=== PATIENT | male | born 1955 | race Caucasian/White ===

== ENCOUNTER 2020-07-07 10:30 | Outpatient (NON) | payer BC, SELFPAY ==
[2020-07-08 14:03] LABS: SARS-CoV-2 RNA PCR Negative
== END 2020-07-07 10:31 ==
LOC: ANHCOVIDDT 10:33
PROVIDERS: PCP Family Medicine Adolescent Medicine; Visit Provider Family Medicine Adolescent Medicine
DX: R43.0 Anosmia (principal); M79.10 Myalgia, unspecified site; R09.89 Other specified symptoms and signs involving the circulatory and respiratory systems
CPT/HCPCS: 87635; C9803; U0003

== ENCOUNTER 2024-10-02 11:48 | Inpatient (IN) | payer OTHER, SELFPAY ==
--- NOTE | ~2024-10-02 | MR_ITS ---
EXAMINATION: MR abdomen wo/w con DATE: 10/23/2024 09:14 INDICATION: Kidney mass. TECHNIQUE: Magnetic resonance imaging (MRI) of the abdomen was performed without and with 20 mL Multi Brea intravenous contrast. COMPARISON: None. FINDINGS: There are small pleural effusions. The liver is normal. Material in the gallbladder may be sludge or stones. The gallbladder is normal in size. The spleen, pancreas, and adrenal glands are normal. There is a 4.3 cm hemorrhagic cyst in the right kidney. There is an 11 mm cyst in right kidney. There is a n 11 mm cyst in the left kidney. There are no dilated loops of bowel. There are no pathologically enl arged lymph nodes. There is no free intraperitoneal fluid. The bladder is distended. IMPRESSION: 1. Benign cysts in the kidneys. 2. Small pleural effusions. Reviewed, dictated and finalized at location [] STMENT UNDERWRITER
--- NOTE | ~2024-10-02 | US_ITS ---
EXAMINATION: US biopsy renal DATE: 10/21/2024 13:08 INDICATION: Acute kidney injury on chronic kidney disease. TECHNIQUE: The procedure including the risks, benefits, and alternatives was discussed with the patie nt. Risks discussed included bleeding and infection. The patient understood the risks and agreed to p roceed. A timeout was performed to verify the patient's name, date of , and procedure to be p erformed. The skin overlying the left kidney was prepped and draped in usual sterile fashion. Anest hetic was administered with 1% lidocaine subcutaneously. An 18 gauge core biopsy needle was then use d to obtain 7 core biopsy specimens under continuous sonographic guidance. The entry site was cleaned and dressed. There were no immediate complications. FINDINGS: Ultrasound images demonstrate the needle in the kidney. IMPRESSION: 1. Ultrasound-guided random left kidney core needle biopsy. Reviewed, dictated and finalized at location A. ECTIONS REP
--- NOTE | ~2024-10-02 | XR_ITS ---
EXAMINATION: XR chest 1V portable DATE: 10/12/2024 10:04 INDICATION: Shortness of breath. TECHNIQUE: A single frontal view of the chest was obtained on 2 radiographs. COMPARISON: Chest single view 10/09/24 FINDINGS: There is no pneumonia, pleural effusion, or pneumothorax. The heart size is normal. Median sternotomy wires and mediastinal surgical clips are seen, likely from prior coronary artery bypass gr afting. IMPRESSION: 1. No acute cardiopulmonary disease. Reviewed, dictated and finalized at location A. [employer]
--- NOTE | ~2024-10-02 | XR_ITS ---
CHEST RADIOGRAPH CLINICAL HISTORY: POST DIALYSIS CATH PLACEMENT . COMPARISON: 10/13/2024 TECHNIQUE: Single portable view of the chest. FINDINGS Sternal wires and mediastinal clips are identified, the wires are midline and intact. A left internal jugular central venous tunneled hemodialysis catheter is identified with its tip proj ecting over the cavoatrial junction. Access site for this catheter projects to the left of the C3 vertebral body. The remainder of the cardiomediastinal silhouette is otherwise unremarkable. The lungs are clear IMPRESSION: Left internal jugular central venous tunneled hemodialysis catheter in position and ready for immedia te use Reviewed, dictated and finalized at location A. TANCE ABUSE SPECIALIST IMPRESSION: Left internal jugular central venous tunneled hemodialysis catheter in position and ready for immediate use
--- NOTE | ~2024-10-02 | XR_ITS ---
Portable chest x-ray Comparison: 01/09/2011 Clinical History: Shortness of breath Findings: Lungs are clear, without focal consolidation or pleural effusion. Cardiomediastinal silho uette is stable, status post interval median sternotomy and CABG. Bones and soft tissues are unremark able. Impression: Clear lungs. Status post CABG. Reviewed, dictated and finalized at location . RIAL PROCESSOR Impression: Clear lungs. Status post CABG.
--- NOTE | ~2024-10-02 | NM_ITS ---
EXAMINATION: NM renal flow and function DATE: 10/13/2024 14:37 INDICATION: Acute kidney injury on chronic kidney disease. TECHNIQUE: 8.3 mCi Tc-99m MAG3 was administered IV. The patient was scanned in the supine position. A posterior abdominal radionuclide angiogram was obtained. A subsequent time course of static images of the kidneys, ureters, and bladder was obtained. COMPARISON: Ultrasound kidneys 10/07/2024 FINDINGS: The posterior abdominal radionuclide angiogram and sequential static images show normal siz e, position, and morphology of the kidneys. Peak renal parenchymal uptake was >>20 min in right kidne y and >>20 min in left kidney (normal peak 3-5 minutes). The relative early renal uptake was 47% on the right and 53% on the left (<40% is abnormal). No abnormalities of the ureters or bladder are see n. T1/2 for clearance of activity from the right kidney and proximal collecting system could not be santos ured. T1/2 for clearance of activity from the left kidney and proximal collecting system could not be measu red. IMPRESSION: 1. Symmetric kidney function. 2. Delayed uptake and clearance of activity from the kidneys, consistent with decreased kidney funct ion. Reviewed, dictated and finalized at location A. SINGER IMPRESSION: 1. Symmetric kidney function. 2. Delayed uptake and clearance of activity from the kidneys, consistent with decreased kidney function.
--- NOTE | ~2024-10-02 | XR_ITS ---
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 RESULT: Lines, tubes, and devices: Intact sternotomy wires. Sternal surgical clips. Lungs and pleura: Clear. Cardiomediastinal silhouette: Stable. Other: No acute osseous or upper abdominal finding. IMPRESSION: No acute cardiopulmonary process. Reviewed, dictated and finalized at location K. RVISOR DRYING AND SOFTENING
--- NOTE | ~2024-10-02 | US_ITS ---
EXAMINATION: US renal BI DATE: 10/07/2024 11:38 INDICATION: Acute on chronic renal insufficiency. TECHNIQUE: Multiple ultrasound grayscale images of the kidneys were obtained. COMPARISON: None. FINDINGS: The right kidney measures 11.9 x 5.8 x 6.4 cm. The left kidney measures 11.1 x 7.2 x 6.2 cm. The kidn eys demonstrate normal echogenicity. There is a mixed solid and cystic lesion at the superior pole of the right kidney which measures 3.4 cm in diameter with anechoic fluid surrounding a central 2 x 1.5 cm echogenic solid component which concerning for renal cell carcinoma. There is no hydronephrosis i n either kidney. No stones identified. There is a trabeculated surface to the bladder mucosa. Bilate ral ureteral jets visualized on color Doppler. IMPRESSION: 1. 3.4 cm mixed solid and cystic lesion at the upper pole the right kidney with 2 cm solid nodular c omponent which is concerning for renal cell carcinoma. Recommend urologic consultation and further ev aluation with pre and postcontrast MRI or CT. 2. No hydronephrosis in either kidney. 3. Trabeculated bladder wall which can be seen with neurogenic bladder or chronic outlet obstruction such as in the setting of prostatomegaly. Reviewed, dictated and finalized at location A. COLOGIST IMPRESSION: 1. 3.4 cm mixed solid and cystic lesion at the upper pole the right kidney wit h 2 cm solid nodular component which is concerning for renal cell carcinoma. Re commend urologic consultation and further evaluation with pre and postcontrast MRI or CT. 2. No hydronephrosis in either kidney. 3. Trabeculated bladder wall which can be seen with neurogenic bladder or chron ic outlet obstruction such as in the setting of prostatomegaly.
--- NOTE | ~2024-10-02 | XR_ITS ---
INTRAOPERATIVE FLUOROSCOPY: CLINICAL HISTORY: 69 years old Male; DIALYSIS CATH PLACEMENT PROCEDURE COMMENTS: Limited intraoperative fluoroscopy of the mediastinum was performed. CUMULATIVE DOSE: 30.8 mGy FLUOROSCOPY TIME: 122.4 seconds FINDINGS/IMPRESSION: Please refer to operative note for further details. Reviewed, dictated and finalized at location A. HING CUTTER
--- NOTE | ~2024-10-02 | XR_ITS ---
EXAMINATION: XR foot RT 2V DATE: 10/02/2024 14:24 INDICATION: Right great toe pain. TECHNIQUE: 2 views of right foot were obtained. COMPARISON: None. FINDINGS: There is a nondisplaced fracture of lateral aspect of head of first proximal phalanx. There is a nondisplaced stellate fracture of tuft of first distal phalanx. There is mild osteoarthritis of first metatarsophalangeal joint and many of the interphalangeal joints and midfoot joints. There are enthesophytes at the posterior and plantar aspects of calcaneal tuberosity. IMPRESSION: 1. Nondisplaced fracture of lateral aspect of head of first proximal phalanx. 2. Nondisplaced stellate fracture of tuft of first distal phalanx. 3. Mild polyarticular osteoarthritis. Reviewed, dictated and finalized at location A. PAY REPRESENTATIVE
[2024-10-02 11:49] VITALS: BP 116/59; PULSE 70; RESP 16; TEMP 36.4; O2SAT 100
--- OUTSIDE RECORDS SUMMARY | 2024-10-02 11:50 | XMS_ITS | Encounter Summary ---
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 Historical Provider Final Res ult * CARDIOLOGY REPORT (12/07/2017 12:00 AM CDT) Anatomical Region Laterality Modality Other Narrative 12/07/2017 12:00 AM CDT Ordered by an unspecified provider. Historical Provider MD [facility] CARDIAC SERVICES PROCE DURES Final Result * CARDIOLOGY REPORT (12/07/2017 12:00 AM CDT) Anatomical Region Laterality Modality Other Narrative 12/07/2017 12:00 AM CDT Ordered by an unspecified provider. [facility] Provider MD CV CARDIAC SERVICES PROCE DURES Final Result * CARDIOLOGY REPORT (12/07/2017 12:00 AM CDT) Anatomical Region Laterality Modality Other Narrative 12/07/2017 12:00 AM CDT Ordered by an unspecified provider. [facility] Provider CV CARDIAC SERVICES PROCE DURES Final Result * CARDIOLOGY REPORT (12/07/2017 12:00 AM CDT) Anatomical Region Laterality Modality Other Narrative 12/07/2017 12:00 AM CDT Ordered by an unspecified provider. [facility] Provider CV CARDIAC SERVICES PROCE DURES Final Result documented in this encounter Visit Diagnoses Not on filedocumented in this encounter Additional Health Concerns Infection Onset Date Last Indicated Resolved Time COVID: Suspected 09/29/2022 09/29/2022 09/29/2022 8:55 PM ELEVATOR ERECTOR HELPER documented as of this encounter Care Teams Traveling Sales Executive Relationship Specialty Start Date End Date Adrian Owens MD [address] [place] [address] PCP - General 12/15/20 documented as of this encounter
--- OUTSIDE RECORDS SUMMARY | 2024-10-02 11:50 | XMS_ITS | Encounter Summary ---
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 Historical Provider [facility] CARDIAC SERVICES BENJAMÍN FLOREZ Final Result documented in this encounter Visit Diagnoses Not on filedocumented in this encounter Additional Health Concerns Infection Onset Date Last Indicated Resolved Time COVID: Suspected 09/29/2022 09/29/2022 09/29/2022 8:55 PM ASPHALT DAUBER documented as of this encounter Care Teams Drain Tiler Relationship Specialty Start Date End Date Adrian Owens MD [address] [place] [address] PCP - General 12/15/20 documented as of this encounter
--- OUTSIDE RECORDS SUMMARY | 2024-10-02 11:50 | XMS_ITS | Continuity of Care Document ---
Author Organization [facility] Address [address] [place] [address] Phone Care Team Providers Care Drop Wire Hanger Name Role Phone Conversion MD, Doctor Unavailable Unavailabl e Medications Medication Instructions Dosage Effective Dates (start - stop) Status Comments TRACI 60 MG CAPSULE 1 BID - Active PAXIL 20 MG TABLET 1 QD - Active DOXAZOSIN MESYLATE 4MG TABS 1 QAM - Active NIASPAN 500 MG TABLET SA 3 QPM - Active LISINOPRIL 40 MG TABLET 1 QD - Active NOVOLIN 70/30 70-30 U/ML UNITS 0 DIRECTE - Active 30 u am an d 20 units pm AVANDIA 8 MG TABLET 1 QD - Active POTASSIUM CL 10MEQ TAB SA 1 BID - Active SULINDAC 200MG TABLET 1 BID - Active PENICILLIN VK 500MG TABLET 1 QAM - Active GLUCOPHAGE XR 500MG TAB SA 4 QPM - Active LIPITOR 80MG TABLET 1 QPM - Active FUROSEMIDE 40MG TABLET 1.5 BID - Active LANTUS 100U/ML VIAL 0 DIRECTE - Active 60 units at bedtime ULTRA FINE II, 0.5ML 30G MISCE 1 QD - Active AMARYL 4 MG TABLET 1 BID - No Longer Active NIASPAN 500 MG TABLET SA 1 TID - No Longer Active LISINOPRIL 40MG TABS 1 QD - No Longer Active ACCUPRIL 40MG TABLET 1 QD - No Longer Active TRACI 60MG CAPSULE 1 BID - No Longer Active LANTUS 100U/ML VIAL 0 DIRECTE - No Longer Active 60 units at bedtime AMARYL 4MG TABLET 1 BID No Longer Active AMARYL 4MG TABLET 1 BID No Longer Active ACCUPRIL 40MG TABLET 1 QD - No Longer Active NIASPAN 500MG TABS 1 TID No Longer Active FUROSEMIDE 40MG TABLET 1.5 BID - No Longer Active LIPITOR 80MG TABLET 1 QPM - No Longer Active PAXIL 20MG TABLET 1 QD No Longer Active AVANDIA 8MG TABLET 1 QD No Longer Active POTASSIUM CHLORIDE 10MEQ TABS 1 BID - No Longer Active GLUCOPHAGE XR 500MG TAB SA 4 QPM - No Longer Active PENICILLIN VK 500MG TABLET 1 QAM - No Longer Active SULINDAC 200MG TABLET 1 BID - No Longer Active LANTUS 100U/ML VIAL 0 DIRECTE - No Longer Active 50 units at bedtime TRACI 60MG CAPSULE 1 BID - No Longer Active LIPITOR 80MG TABLET 1 QPM - No Longer Active LANTUS 100U/ML VIAL 0 DIRECTE - No Longer Active 40 units at bedtime LANTUS 100U/ML VIAL 0 DIRECTE - No Longer Active 40 units at bedtime FUROSEMIDE 40MG TABLET 1.5 QD - No Longer Active AMARYL 4MG TABLET 1 BID No Longer Active AMARYL 4MG TABLET 1 BID No Longer Active LIPITOR 80MG TABLET 1 QPM - No Longer Active LIPITOR 80MG TABLET 1 QPM - No Longer Active NIACIN 500MG TABLET SA 1 QHS - No Longer Active ACCUPRIL 40MG TABS 1 QD No Longer Active PAXIL 20MG TABS 1 QD - No Longer Active LANTUS 100 U/ML UNITS 0 DIRECTE - No Longer Active SULINDAC 200MG TABS 1 BID - No Longer Active NIACIN 500MG TABS 1 QHS No Longer Active AMARYL 4MG TABS 1 BID - No Longer Active FUROSEMIDE 40MG TABS 1 QD - No Longer Active AVANDIA 8MG TABS 1 QD - No Longer Active PENICILLIN V POTASSIUM 500MG T 1 QAM - No Longer Active PENICILLIN V POTASSIUM 500MG T 1 QAM - No Longer Active LIPITOR 80MG TABS 1 QPM No Longer Active GLUCOPHAGE XR 500MG TAB(S 4 QPM - No Longer Active LIPITOR 20MG TABLET 1 QID - No Longer Active GLUCOPHAGE 500MG TABS 1 BID - No Longer Active LASIX 20MG TABS 1 DIRECTE - No Longer Active TRACI 60MG CAPS 1 BID No Longer Active AMARYL 4MG TABS 1 BID - No Longer Active AVANDIA 4MG TABS 1 QD - No Longer Active LIPITOR 20MG TABS 1 QD No Longer Active ACCUPRIL 40MG TABS 1 QD No Longer Active Advance Directives Directive Yes / No Effective Date File Name No Information Encounters Encounter Description Practice Location Reason(s) For Visit Diagnoses Date Provider Providers Copied on Encounter [facility], [address], [place], [place], [id number] , tel: [phone] Conversion Department No Information 1 Conversion Doctor. [facility], [place], [address], . [facility], [address], [place], [place], [address] , tel: [phone] [facility] DMII WO CMP UNCNTRLDOBESITY NOSBENIGN HYPERTENSION 5 Hoskins Erik. [address] , [address], [place], [place], [address]. tel: [phone] [facility], [address], [place], [place], [address] , tel: [phone] [facility] MIXED HYPERLIPIDEMIALO NG-TERM USE MEDS NECHEMATURIA 200 5 Hoskins Erik. [address] [facility], [address], [place], [place], [address]. tel: [phone] [facility], [address], [place], [place], [address] , tel: [phone] [facility] NEPHRITIS NOS IN OTH DIS 4 Hoskins Erik. [address], [place], [place], [address]. tel:[phone] [facility], [address], [place], [place], [address] , tel: [phone] [facility] ACUTE SINUSITIS NOS 200 4 Hoskins Erik. [address] [facility] [address], [address], [place], [place], [address]. tel: [phone] [facility], [address], [place], [place], [address] , [place] tel: [phone] [facility] VACCIN FOR INFLUENZA 3-200 3 Hoskins Erik. [address] [facility] [address], [address], [place], [place], [address]. tel: [phone] [facility], [address], [place], [place], [address] , [place] tel: [phone] [facility] CELLULITIS OF LEG 3-200 3 Hoskins Erik. [address] [facility] [address], [address], [place], [place], [address]. tel: [phone] [facility], [address], [place], [place], [address] , [place] tel:[phone] [facility] PROTEINURIA May-0 6-200 3 Hoskins Erik. [address] [facility] [address], [address], [place], [place], [address]. tel: [phone] [facility], [address], [place], [place], [address] , [place] tel: [phone] [facility] CARPAL TUNNEL SYNDROME Dec- 0-200 1 Hoskins Erik. [address] [facility], [address], [place], [place], [address]. tel: [phone] [facility] [facility], [address], [place], [place], [address] , [place] tel: [phone] [facility] ALLERGIC RHINITIS NOS 7-200 1 Conversion Doctor. [address] [facility], [place], [address], [place]. [facility], [address], [place], [place], [address] , [place] tel: [phone] [facility] PAIN IN LIMB Oct-2 5-200 0 Hoskins Erik. [address] [facility] [address], [address], [place], [place], [address]. tel: [phone] [facility], [address], [place], [place], [address] , tel: [phone] [facility] NEUROPATHY IN DIABETES 4-200 0 Hoskins Erik. [address] , [address], [place], [place], [address]. tel:[phone] [facility], [address], [place], [place], [address] , tel: [phone] [facility] BACKACHE NOS 8-199 9 Hoskins Erik. [address] , [address], [place], [place], [address]. tel:[phone] [facility], [address], [place], [place], [address] , tel: [phone] [facility] MULTIPLE CONTUSION LEGJOINT PAIN-L/LEGCONTUS ION OF KNEE 4-199 9 Hoskins Erik. [address] , [address], [place], [place], [address]. tel:[phone] Family History Family Member Type Diagnosis Age At Onset No Information Immunizations Vaccine Date Status Comments 72513 - Influenza administered Source: [place] 35125 - Influenza administered Source: [place] Payers Payer name Insurance type Covered alliance party ID Authoriza tion(s) No Information Social History Type Description Quantity Date Captured Comments Sex Male Smoking Status No Information Chief Complaint And Reason For Visit No Information Reason For Referral Reason For Referral No Information History Of Present Illness Encounter Date Complaint History Of Prese nt Illness No Information Functional Status Date Functional Assessmen t No Information Medications Administered Medication Instructions Dosage Effective Dates (start - stop) Status Comments LANTUS 100U/ML VIAL 0 DIRECTE - No Longer Active 60 units at bedtime AMARYL 4MG TABLET 1 BID No Longer Active AMARYL 4MG TABLET 1 BID No Longer Active LIPITOR 80MG TABLET 1 QPM - No Longer Active Instructions Date Instruction Additional Infor mation No Information Assessments Type Assessment Date No Information Patient Care Teams Name Effective Dates (start - stop) Status Members No Information
--- OUTSIDE RECORDS SUMMARY | 2024-10-02 11:51 | XMS_ITS | Referral Summary ---
Author Organization [facility] Address [address] [place] [address] Care Team Providers Care Fiberglass Laminator Name Role Phone Adrian Owens MD Primary Care Prov ider Encounters Date Type Department Care Team Description 08/08/2024 Telephone [facility] Medical [facility] [place] [address] [place] [address] Caprice Gusman MD 07/30/2024 3:45 PM TELEVISION STATION MANAGER Office Visit [facility] Nephrology at [address] [place] [address] Caprice Gusman MD CRD (chronic renal disease), stage IV (CMS/HCC) (HCC) (Primary Dx); Type 2 diabetes mellitus with stage 4 chronic kidney disease, with long-term current use of insulin (HCC); Benign hypertensive kidney disease with chronic kidney disease stage I through stage IV, or unspecified(403.10); Anemia in stage 4 chronic kidney disease (HCC); Secondary hyperparathyroidism (HCC); Hyperkalemia from Last 3 Months Allergies Active Allergy Reactions Criticality Noted Date Comments Latex Rash Medium 12/06/2021 Medications cetirizine (ZyrTEC) 10 mg capsuleIndications :Allergic Rhinitis Take 10 mg by mouth daily. Indications: inflammation of the nose due to an allergy Active gabapentin (NEURONTIN) 300 mg capsuleIndications :Neuropathic Pain Take 1 capsule (300 mg total) by mouth 2 (two) times a day 12/14/19 21 Active ISOSORBIDE MONONITRATE ORALIndications: Take 90 mg by mouth daily. Rx for 60mg tablet, takes 1 1/2 tablets (90mg) Indications: 11/27/19 21 Active sertraline (ZOLOFT) 50 mg tabletIndications: Generalized Anxiety Disorder Take 1 tablet (50 mg total) by mouth daily Active ADULT LOW DOSE ASPIRIN ORALIndications:He art health Take 1 tablet by mouth daily. 81 mg tablet Indications: Heart health Active dulaglutide (Trulicity) 3 mg/0.5 mL pen injector Inject under the skin once a week Active cyanocobalamin (Vitamin B-12) 100 mcg tabletIndications: Prevention of Vitamin B12 Deficiency Take 1 tablet (100 mcg total) by mouth daily Active cholecalciferol (VITAMIN D-3) 5,000 unit tablet Ac tive pantoprazole DR (PROTONIX) 40 mg EC tablet Take 1 tablet (40 mg total) by mouth nightly 05/15/20 22 Active propranoloL (INDERAL) 60 mg tablet Take 1 tablet (60 mg total) by mouth 3 (three) times a day Active fluticasone propionate (FLONASE) 50 mcg/actuation nasal spray Administer 1 spray into each nostril 2 (two) times a day 1 each 10/02/19 23 Active dapagliflozin propanediol (FARXIGA) 10 mg tablet Take 1 tablet (10 mg total) by mouth daily Active atorvastatin (LIPITOR) 80 mg tabletIndications: Coronary artery disease due to lipid rich plaque,Mixed hyperlipidemia Take 1 tablet (80 mg total) by mouth nightly 90 tablet 3 01/23/20 24 Active busPIRone (BUSPAR) 10 mg tabletIndications: Generalized Anxiety Disorder Take 1 tablet (10 mg total) by mouth 2 (two) times a day Active bumetanide (BUMEX) 1 mg tablet Take 1 tablet (1 mg total) by mouth daily 90 tablet 01/30/20 24 025 Active ezetimibe (ZETIA) 10 mg tabletIndications: Hyperlipidemia, unspecified hyperlipidemia type,Coronary artery disease due to lipid rich plaque,Mixed hyperlipidemia Take 1 tablet (10 mg total) by mouth daily 90 tablet 3 02/18/20 24 025 Active ranolazine ER (RANEXA) 1,000 mg 12 hr tablet TAKE 1 TABLET BY MOUTH TWICE A DAY 180 tablet 1 04/15/20 24 Active insulin lispro (HumaLOG, ADMELOG) 100 unit/mL pen for injection Inject under the skin 130 units every morning and 90 units every evening. Active calcitRIOL (ROCALTROL) 0.25 mcg capsule Take 1 capsule (0.25 mcg total) by mouth 3 (three) times a week 36 capsule 3 08/08/20 24 025 Active Active Problems Problem Noted Date Diagnosed Date CKD (chronic kidney disease) stage 4, GFR 15-29 ml/min (CMS/[facility]) 01/30/2024 Chest pain, unspecified type 09/29/2022 Coronary artery disease of n ative artery of [place] heart with stable angina pectoris 05/02/2022 Assessment & Plan (10/02/2022 12:27 PM TELEVISION STATION MANAGER): Since admission angina noted. Plan as outlined above. Advised patient to contact us or go to emergency room by ambulance if he has any recurrent and persistent chest pains. Encouraged him to be active and walk as much as he can and advised him to contact me if he has any chest pains. I will see him in 2 weeks. Recent LDL is 69. Essential hypertension 05/02/2022 Assessment & Plan (10/02/2022 12:26 PM TELEVISION STATION MANAGER): Pressure is well controlled. Continue propranolol and nitrates Lower extremity edema 05/02/2022 Major depressive disorder wi th single episode, in partial remission 04/11/2022 CKD stage G3b/A1, GFR 30-44 and albumin creatinine ratio <30 mg/g 04/11/2022 Assessment & Plan (10/02/2022 12:25 PM TELEVISION STATION MANAGER): Chem 7 is pending. Nephrology following. Chest pain 04/10/2022 Assessment & Plan (10/02/2022 12:27 PM TELEVISION STATION MANAGER): Chest pain somewhat atypical. Given the underlying coronary disease could be angina also. He has pain only at rest and not with activity. No associated symptoms. I had very lengthy discussion with him about the options including cardiac catheterization and medical therapy. Risk of for cardiac catheterization including renal failure and possible hemodialysis especially given the renal disease and diabetes mellitus discussed with him. Patient understood. Medical therapy pros and cons also discussed. He wishes to continue medications. He is not taking any sublingual nitroglycerin. As per his wishes continue medical therapy. Today's Chem 7 is pending. If the creatinine is stable he can be discharged on a aspirin, Imdur and the Ranexa. Continue propranolol also Morbid (severe) obesity due to excess calories 0 11/24/2021 Ulcer of left foot, limited to breakdown of skin ([facility]) 03/04/2021 Assessment & Plan (03/04/2021 3:16 PM CDT): Transfer lesion left foot and also left 1st toe amputation healed. No further vascular surgical workup per intervention needed at this time. Patient follow-up on as-needed basis. Osteomyelitis of great toe of left foot ([facility] ) 01/07/2021 Assessment & Plan (02/22/2021 1:42 PM CDT): Impression: Patient recovering status post left 1st toe amputation, his 1st toe amputation site has healed however he did recently developed a transfer lesion to his left lateral foot which is superficial with no concern for infection currently. Plan: Recommend offloading therapy, local wound care and follow-up in 2 weeks for re-evaluation of his left lateral foot transfer lesion. Transfusion-dependent anemia 01/04/2021 Osteomyelitis due to type 2 diabetes mellitus ([facility]) 01/04/2021 Assessment & Plan (01/13/2021 3:27 PM CDT): Impression: Patient status post left 1st toe amputation on 12/20/2020 which is healing. No concern for infection currently. Plan: Sutures removed from the surgical incision site to the left foot. Patient tolerated well. Continue daily dressing changes with triple antibiotic ointment, 4x4s, Kerlix, and Willy. Continue using the offloading shoe. Recommend fitting for diabetic shoes. Recommend wearing 20-30 mm Hg knee-high compression stockings daily for better control of edema. Neuropathy due to peripheral vascular disease ([facility]) 01/04/2021 Diabetic ketoacidosis ([facility]) 01/04/2021 Mixed hyperlipidemia 01/23/2019 Assessment & Plan (10/02/2022 12:28 PM TELEVISION STATION MANAGER): Continue atorvastatin and the cardiac diet and I discussed with him. Last LDL is 69 Status post five vessel coronary artery bypass 0 09/30/2018 Overview (01/04/2021): Had 3 vessel bypass surgery in October 2017. The cardiac cath done in February 2018 showed a significant disease involving the RCA and diagonal branches. LAD is totally occluded. The CEDENO to the left anterior descending is patent but distal LAD has tandem occl Diastolic CHF (CMS/HCC) 12/19/2017 Pure hypercholesterolemia 12/07/2017 prison current use of insulin ([facility]) 12/07 Type 2 diabetes mellitus wit h other circulatory complications 12/07/2017 Immunizations Name Administration Dates Next Due Pfizer SARS-CoV-2 Monovalent Vaccination (12+ Yrs) PURPLE 11/26/2020 Tdap 09/08/2023 Social History Tobacco Use Types Packs/Day Years Used Date Smoking Tobacco: Never Smokeless Tobacco: Never Tobacco Cessation:Counseling Given: Not Answered AUDIT-C Answer Date Recorded Q1: How often do you have a drink containing alc ohol? Monthly or less 07/30/2024 Average Number of Drinks Not on file 024 Frequency of Binge Drinking Not on file 07/20 Personal Safety Answer Date Recorded Getting School Help Needed Denies 07/30 Sex and Gender Information Value Date Recorded Sex Assigned at Not on file Legal Sex Male 6:50 PM TELEVISION STATION MANAGER Gender Identity Not on file Sexual Orientation Not on file Last Filed Vital Signs Vital Sign Reading Time Taken Comments Blood Pressure 112/61 07/30/2024 3:45 PM TELEVISION STATION MANAGER Pulse 76 07/30/2024 3:45 PM TELEVISION STATION MANAGER Temperature 36.3 C (97.3 F) 07/30/2024 3:45 PM TELEVISION STATION MANAGER Respiratory Rate 17 09/08/2023 8:40 AM TELEVISION STATION MANAGER Oxygen Saturation 97% 09/08/2023 8:40 AM TELEVISION STATION MANAGER Inhaled Oxygen Concentration - - Weight 132 kg (291 lb) 07/30/2024 3:45 PM TELEVISION STATION MANAGER Height 188 cm (6' 2 ) 07/30/2024 3:45 PM TELEVISION STATION MANAGER Body Mass Index 37.36 07/30/2024 3:45 PM TELEVISION STATION MANAGER Plan of Treatment Not on file Procedures Procedure Name Priority Date/Time Associated Diagnosis Comments CBC WITH AUTO DIFFERENTIAL Routine 08/05/2024 8:55 AM TELEVISION STATION MANAGER CRD (chronic renal disease), stage IV (CMS/HCC) (HCC) VITAMIN D 25 HYDROXY Routine 08/05/2024 8:55 AM TELEVISION STATION MANAGER CRD (chronic renal disease), stage IV (CMS/HCC) (HCC) RENAL FUNCTION PANEL Routine 08/05/2024 8:55 AM TELEVISION STATION MANAGER CRD (chronic renal disease), stage IV (CMS/HCC) (HCC) PTH Routine 08/05/2024 8:55 AM TELEVISION STATION MANAGER CRD (chronic renal disease), stage IV (CMS/HCC) (HCC) PROTEIN / CREATININE RATIO, URINE, RANDOM Routine 08/05/2024 8:55 AM TELEVISION STATION MANAGER CRD (chronic renal disease), stage IV (CMS/HCC) (HCC) LIPID PANEL Routine 01/21/2024 9:47 AM CDT Coronary artery disease due to lipid rich plaque Mixed hyperlipidemia HEMOGLOBIN A1C Routine 09/30/2022 8:48 AM TELEVISION STATION MANAGER from Last 3 Months or Most Recently Relevant to Health Maintenance Results * CBC with auto differential (08/05/2024 8:55 AM TELEVISION STATION MANAGER) WBC 9.0 3.8 - 10.8 Thousand/u L [facility] RBC, POC 4.80 4.20 - 5.80 Million/uL [facility] Hgb 14.8 13.2 - 17.1 g/dL [facility] Hct 46.2 38.5 - 50.0 % [facility] MCV 96.3 80.0 - 100.0 fL [facility] MCH 30.8 27.0 - 33.0 pg [facility] MCHC 32.0 32.0 - 36.0 g/dL [facility] Comment: For adults, a slight decrease in the calculated MCHC value (in the range of 30 to 32 g/dL) is most likely not clinically significant; however, it should be interpreted with caution in correlation with other red cell parameters and the patient's clinical condition. Rdw 12.1 11.0 - 15.0 % [facility] Platelets 248 140 - 400 Thousand/u L [facility] MPV 11.0 7.5 - 12.5 fL [facility] Neutrophils, abs 4,401 1,500 - 7,800 cells/uL [facility] Lymphocytes, abs 3,636 850 - 3,900 cells/uL [facility] Monocyte abs 738 200 - 950 cells/uL [facility] Eosinophils, abs 162 15 - 500 cells/uL [facility] Basophils, abs 63 0 - 200 cells/uL [facility] Neutrophils 48.9 % [facility] Lymphocyte pct 40.4 % [facility] Monocytes 8.2 % [facility] Eosinophils 1.8 % [facility] Basophils 0.7 % [facility] Blood 08/05/2024 8:55 AM TELEVISION STATION MANAGER 08/05/2024 8:56 AM TELEVISION STATION MANAGER Narrative [facility] - 08/06/2024 6:10 AM TELEVISION STATION MANAGER FASTING:NO FASTING: NO Caprice Gusman MD LAB BLOOD ORDERABLES Final Result [facility] [address] [place] [address] * (ABNORMAL) Protein / creatinine ratio, urine, random (08/05/2024 8:55 AM TELEVISION STATION MANAGER) Creatinine, ur 91 20 - 320 mg/dL [facility] Protein/creati nine ratio 462(H) 25 - 148 mg/g creat [facility] Protein/Creati nine Ratio 0.462(H) 0.025 - 0.148 mg/mg creat [facility] Protein, ur, quant 42(H) 5 - 25 mg/dL [facility] Urine 08/05/2024 8:55 AM TELEVISION STATION MANAGER 08/05/2024 8:56 AM TELEVISION STATION MANAGER Narrative [facility] - 08/06/2024 6:10 AM TELEVISION STATION MANAGER FASTING:NO FASTING: NO Result [facility] Caprice Gusman MD LAB URINE ORDERABLES Final Result Performing Organization Address [facility] Co de Phone Number [facility] [address] [place] [address] * Vitamin D 25 hydroxy (08/05/2024 8:55 AM TELEVISION STATION MANAGER) Vitamin D 25-OH 33 30 - 100 ng/mL [facility] Comment: Vitamin D Status 25-OH Vitamin D: Deficiency: <20 ng/mL Insufficiency: 20 - 29 ng/mL Optimal: > or = 30 ng/mL For 25-OH Vitamin D testing on patients on D2-supplementation and patients for whom quantitation of D2 and D3 fractions is required, the [facility](TM) 25-OH VIT D, (D2,D3), LC/MS/MS is recommended: order code 67816 (patients >2yrs). See Note 1 Note 1 For additional information, please refer to http://education.BeVocal/faq/KRK913 (This link is being provided for informational/ educational purposes only.) Blood 08/05/2024 8:55 AM TELEVISION STATION MANAGER 08/05/2024 8:56 AM TELEVISION STATION MANAGER Narrative [facility] - 08/06/2024 6:10 AM TELEVISION STATION MANAGER FASTING:NO FASTING: NO Result [facility] Caprice Gusman MD LAB BLOOD ORDERABLES Final Result Performing Organization Address [facility]/ZIP Co de Phone Number [facility] [address] [place] [address] * (ABNORMAL) PTH (08/05/2024 8:55 AM TELEVISION STATION MANAGER) Parathyroid hormone, intact 139(H) 16 - 77 pg/mL [facility] Comment: Interpretive Guide Intact PTH Calcium ------- Normal Parathyroid Normal Normal Hypoparathyroidism Low or Low Normal Low Hyperparathyroidism Primary Normal or High High Secondary High Normal or Low Tertiary High High Non-Parathyroid Hypercalcemia Low or Low Normal High Blood 08/05/2024 8:55 AM TELEVISION STATION MANAGER 08/05/2024 8:56 AM TELEVISION STATION MANAGER Narrative [facility] - 08/06/2024 6:10 AM TELEVISION STATION MANAGER FASTING:NO FASTING: NO Caprice Gusman MD LAB BLOOD ORDERABLES Final Result [facility] [address] [place] [address] * (ABNORMAL) Renal function panel (08/05/2024 8:55 AM TELEVISION STATION MANAGER) Glucose 135 65 - 139 mg/dL [facility] Comment: Non-fasting reference interval BUN 42(H) 7 - 25 mg/dL [facility] Creatinine 2.86(H) 0.70 - 1.35 mg/dL [facility] eGFR 23(L) > OR = 60 mL/min/1.7 3m2 [facility] BUN/creat ratio 15 6 - 22 (calc) [facility] Sodium 138 135 - 146 mmol/L [facility] Potassium, pl 4.8 3.5 - 5.3 mmol/L [facility] Chloride 108 98 - 110 mmol/L [facility] CO2 27 20 - 32 mmol/L [facility] Calcium 9.1 8.6 - 10.3 mg/dL [facility] Phosphorus, sr 4.4(H) 2.1 - 4.3 mg/dL [facility] Albumin 4.2 3.6 - 5.1 g/dL [facility] Blood 08/05/2024 8:55 AM TELEVISION STATION MANAGER 08/05/2024 8:56 AM TELEVISION STATION MANAGER Narrative [facility] - 08/06/2024 6:10 AM TELEVISION STATION MANAGER FASTING:NO FASTING: NO us Caprice Gusman MD LAB BLOOD ORDERABLES Final Result Performing Organization Address City/[facility]/ZIP Co de Phone Number [facility] [address] [phone] * (ABNORMAL) Lipid panel (01/21/2024 9:47 AM CDT) Pathologist [facility] Cholesterol 151 <200 mg/dL [facility] HDL 40 > OR = 40 mg/dL [facility] Triglycerides 198(H) <150 mg/dL [facility] LDL 81 mg/dL (calc) [facility] Comment: Reference range: <100 Desirable range <100 mg/dL for primary prevention; <70 mg/dL for patients with CHD or diabetic patients with > or = 2 CHD risk factors. LDL-C is now calculated using the Carl-Alessio calculation, which is a validated novel method providing better accuracy than the Friedewald equation in the estimation of LDL-C. Carl SS et al. LETTY. 2013;310(19): 4260-6062 (http://education.BeVocal/faq/MDY607) Chol/HDL ratio 3.8 <5.0 (calc) [facility] Non-HDL, (LDL+VLDL) 111 <130 mg/dL (calc) [facility] Comment: For patients with diabetes plus 1 major ASCVD risk factor, treating to a non-HDL-C goal of <100 mg/dL (LDL-C of <70 mg/dL) is considered a therapeutic option. Blood 01/21/2024 9:47 AM CDT 01/21/2024 9:47 AM CDT Narrative [facility] - 01/22/2024 5:43 AM CDT FASTING:YES FASTING: YES us Caleb Thibodeaux MD LAB BLOOD ORDERABLES Final Result Performing Organization Address City/[facility]/ZIP Co de Phone Number [facility] [address] [phone] * (ABNORMAL) Hemoglobin A1c (09/30/2022 8:48 AM TELEVISION STATION MANAGER) Hgb A1C 8.1(H) 4.0 - 5.6 % [facility] Estimated Average Glucose 186 mg/dL [facility] Comment: The ADA recommends reporting an estimated Average Glucose (eAG) with all Hemoglobin A1c results using the equation derived from a study of 507 normal and diabetic adults. Minority populations were underrepresented and children were not included. (Diabetes Care 31:4238-7148, 2008). The eAG is not equivalent to a fasting glucose. Blood 09/30/2022 8:48 AM TELEVISION STATION MANAGER 09/30/2022 10:00 AM TELEVISION STATION MANAGER Honey Mitchell MD LAB BLOOD ORDERABL ES Final Result [facility] [address] [place] [address] from Last 3 Months or Most Recently Relevant to Health Maintenance Insurance [facility] Advance Directives For more information, please contact: [phone] * Full Code (Latest Code Status on File) Date Activated Date Inactivated Comments 09/30/2022 3:26 AM 10/02/2022 9:08 PM * Full Code Date Activated Date Inactivated Comments 04/10/2022 11:17 PM 04/11/2022 10:51 PM Care Teams Fiberglass Laminator Relationship Specialty Start Date End Date Adrian Owens MD [address] [place] [address] PCP - General 12/15/20
--- OUTSIDE RECORDS SUMMARY | 2024-10-02 11:51 | XMS_ITS | Clinical Summary ---
Author Organization [facility] Address [address] [place] [address] Care Team Providers Care Line Server Name Role Phone Adrian Owens MD Primary Care Prov ider Allergies Active Allergy Reactions Criticality Noted Date [...] tablet (40 mg total) by mouth nightly 09/26/20 22 Active propranoloL (INDERAL) 60 mg tablet [...] kidney disease) stage 4, GFR 15-29 ml/min (CMS/HCC) 01/30/2024 Chest pain, unspecified type 09/29/2022 Coronary artery disease of n ative artery of [place] heart with stable angina pectoris 05/02/2022 Assessment & Plan (10/02/2022 12:27 PM MANAGING PRINCIPAL): Since admission angina noted. Plan as outlined [...] 05/02/2022 Assessment & Plan (10/02/2022 12:26 PM MANAGING PRINCIPAL): Pressure is well controlled. Continue propranolol and nitrates Lower extremity edema 05/02/2022 Major depressive disorder wi th single episode, in partial remission 04/11/2022 CKD stage G3b/A1, GFR 30-44 and albumin creatinine ratio <30 mg/g 04/11/2022 Assessment & Plan (10/02/2022 12:25 PM MANAGING PRINCIPAL): Chem 7 is pending. Nephrology following. Chest pain 04/10/2022 Assessment & Plan (10/02/2022 12:27 PM MANAGING PRINCIPAL): Chest pain somewhat atypical. Given the underlying [...] left foot, limited to breakdown of skin (CMS/HCC) 03/04/2021 Assessment & Plan (03/04/2021 3:16 PM CDT): Transfer lesion left foot and also left 1st toe amputation healed. No further vascular surgical workup per intervention needed at this time. Patient follow-up on as-needed basis. 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 (CMS/HCC) 12/07 Type 2 diabetes mellitus wit h other circulatory complications 12/07/2017 Encounters Date Type Department Care Team Description 08/08/2024 Telephone [facility] Nephrology at [address] [place] [phone] Caprice Gusman MD 07/30/2024 3:45 PM MANAGING PRINCIPAL Office Visit [facility] Nephrology at [place] [id number] [facility] [address] [place] [phone] Caprice Gusman MD CRD (chronic renal disease), stage IV (CMS/HCC) (HCC) (Primary Dx); Type 2 diabetes mellitus with stage 4 chronic kidney disease, with long-term current use of insulin (HCC); Benign hypertensive kidney disease with chronic kidney disease stage I through stage IV, or unspecified(403.10); Anemia in stage 4 chronic kidney disease (HCC); Secondary hyperparathyroidism (HCC); Hyperkalemia from Last 3 Months Immunizations Name Administration Dates Next Due Pfizer SARS-CoV-2 Monovalent Vaccination (12+ Yrs) PURPLE 11/26/2020 Tdap 09/08/2023 Surgical History Surgery Date Site/Laterality Comments TOE AMPUTATION 12/20/2020 Left 1st CORONARY ARTERY BYPASS GRAFT LEG SURGERY Left Medical History Medical History Date Comments Neuropathy (CMS/HCC) Hypertension Diabetes (HCC) Hypercholesterolemia Heart disease triple bypass 1999 Infection Left big toe removed 2019 GERD (gastroesophageal reflux disease) Sept. Family History Medical History Relation Name Comments Cancer Brother beatriz Cancer Father Edger Diabetes Mother Kristen Heart disease Mother Kristen 2 Cancer Sister 1 Other Sister 2 Other Sister 3 Other Sister 4 No Known Problems Sister 5 Relation Name Status Comments Brother beatriz Father Edger Mother Kristen Sister 1 Sister 2 Alive Sister 3 Alive Sister 4 Sister 5 Social History Tobacco Use Types Packs/Day Years [...] on file Legal Sex Male 6:50 PM MANAGING PRINCIPAL Gender Identity Not on file Sexual Orientation Not on file Obstetrics History Last Filed Vital Signs Vital Sign Reading Time Taken Comments Blood Pressure 112/61 07/30/2024 3:45 PM MANAGING PRINCIPAL Pulse 76 07/30/2024 3:45 PM MANAGING PRINCIPAL Temperature 36.3 C (97.3 F) 07/30/2024 3:45 PM MANAGING PRINCIPAL Respiratory Rate 17 09/08/2023 8:40 AM MANAGING PRINCIPAL Oxygen Saturation 97% 09/08/2023 8:40 AM MANAGING PRINCIPAL Inhaled Oxygen Concentration - - Weight 132 kg (291 lb) 07/30/2024 3:45 PM MANAGING PRINCIPAL Height 188 cm (6' 2 ) 07/30/2024 3:45 PM MANAGING PRINCIPAL Body Mass Index 37.36 07/30/2024 3:45 PM MANAGING PRINCIPAL Plan of Treatment Health Maintenance Due Date Last Done Comments Albumin Creatinine Ratio, Urine 1956 Colon Cancer Screening-Colonoscopy 1956 Depression Screening 1956 Hepatitis C Screening 1956 Prostate Cancer Screening-PSA 1956 Dilated Eye Exam 1956 Foot Exam 1956 Pneumococcal vaccine 65+ (1 of 2 - PCV) 1962 Hepatitis B Screening 1974 Zoster Vaccine (1 of 2) 2006 Well Visit 65+ 2021 Hemoglobin A1C 03/30/2023 09/30/2022, 03/21, 12/16/2020, Additional history exists Fall Risk Assessment 10/02/2023 10/02/2022 Covid-19 Vaccine (2 - 2023-2 5 season) 2024 11/26/2020 Influenza Vaccine (#1) 2024 Lipid Panel 01/20/2025 01/21/2024, 03/21, 12/15/2020, Additional history exists eGFR 08/05/2025 08/05/2024, 01/19, 01/21/2024, Additional history exists DTaP/Tdap/Td Vaccine (2 - Td or Tdap) 09/08/2033 09/08/2023 Procedures Procedure Name Priority Date/Time Associated Diagnosis Comments CBC WITH AUTO DIFFERENTIAL Routine 08/05/2024 8:55 AM MANAGING PRINCIPAL CRD (chronic renal disease), stage IV (CMS/HCC) (HCC) VITAMIN D 25 HYDROXY Routine 08/05/2024 8:55 AM MANAGING PRINCIPAL CRD (chronic renal disease), stage IV (CMS/HCC) (HCC) RENAL FUNCTION PANEL Routine 08/05/2024 8:55 AM MANAGING PRINCIPAL CRD (chronic renal disease), stage IV (CMS/HCC) (HCC) PTH Routine 08/05/2024 8:55 AM MANAGING PRINCIPAL CRD (chronic renal disease), stage IV (CMS/HCC) (HCC) PROTEIN / CREATININE RATIO, URINE, RANDOM Routine 08/05/2024 8:55 AM MANAGING PRINCIPAL CRD (chronic renal disease), stage IV (CMS/HCC) (HCC) LIPID PANEL Routine 01/21/2024 9:47 AM CDT Coronary artery disease due to lipid rich plaque Mixed hyperlipidemia HEMOGLOBIN A1C Routine 09/30/2022 8:48 AM MANAGING PRINCIPAL from Last 3 Months or Most Recently Relevant to Health Maintenance Results * CBC with auto differential (08/05/2024 8:55 AM MANAGING PRINCIPAL) Pathologist [facility] WBC 9.0 3.8 - 10.8 Thousand/u L [...] [facility] Blood 08/05/2024 8:55 AM MANAGING PRINCIPAL 08/05/2024 8:56 AM MANAGING PRINCIPAL Narrative [facility] - 08/06/2024 6:10 AM MANAGING PRINCIPAL FASTING:NO FASTING: NO Caprice Gusman MD LAB BLOOD ORDERABLES Final Result [facility] [address] [place] [address] * (ABNORMAL) Protein / creatinine ratio, urine, random (08/05/2024 8:55 AM MANAGING PRINCIPAL) Creatinine, ur 91 20 - 320 mg/dL [facility] Protein/creati nine ratio 462(H) 25 - 148 mg/g creat [facility] Protein/Creati nine Ratio 0.462(H) 0.025 - 0.148 mg/mg creat [facility] Protein, ur, quant 42(H) 5 - 25 mg/dL [facility] Urine 08/05/2024 8:55 AM MANAGING PRINCIPAL 08/05/2024 8:56 AM MANAGING PRINCIPAL Narrative [facility] - 08/06/2024 6:10 AM MANAGING PRINCIPAL FASTING:NO FASTING: NO us Caprice Gusman MD LAB URINE ORDERABLES Final Result Performing Organization Address [facility] Co de Phone Number [facility] [address] [place] [address] * Vitamin D 25 hydroxy (08/05/2024 8:55 AM MANAGING PRINCIPAL) Vitamin D 25-OH 33 30 - 100 ng/mL [facility] Comment: Vitamin D Status 25-OH Vitamin D: Deficiency: <20 ng/mL Insufficiency: 20 - 29 ng/mL Optimal: > or = 30 ng/mL For 25-OH Vitamin D testing on patients on D2-supplementation and patients for whom quantitation of D2 and D3 fractions is required, the QuestAssure[facility](TM) 25-OH VIT D, (D2,D3), LC/MS/MS is recommended: order code 43339 (patients >2yrs). See Note 1 Note 1 For additional information, please refer to http://education.[employer]/faq/UWX964 (This link is being provided for informational/ educational purposes only.) Blood 08/05/2024 8:55 AM MANAGING PRINCIPAL 08/05/2024 8:56 AM MANAGING PRINCIPAL Narrative [facility] - 08/06/2024 6:10 AM MANAGING PRINCIPAL FASTING:NO FASTING: NO Caprice Gusman MD LAB BLOOD ORDERABLES Final Result Performing Organization Address [facility] de Phone Number [facility] [address] [place] [address] * (ABNORMAL) PTH (08/05/2024 8:55 AM MANAGING PRINCIPAL) Parathyroid hormone, intact 139(H) 16 - 77 pg/mL [facility] Comment: Interpretive Guide Intact PTH Calcium ------- Normal Parathyroid Normal Normal Hypoparathyroidism Low or Low Normal Low Hyperparathyroidism Primary Normal or High High Secondary High Normal or Low Tertiary High High Non-Parathyroid Hypercalcemia Low or Low Normal High Blood 08/05/2024 8:55 AM MANAGING PRINCIPAL 08/05/2024 8:56 AM MANAGING PRINCIPAL Narrative [facility] - 08/06/2024 6:10 AM MANAGING PRINCIPAL FASTING:NO FASTING: NO Caprice Gusman MD LAB BLOOD ORDERABLES Final Result Performing Organization Address City/[facility]/ZIP Co de Phone Number [facility] [address] [phone] * (ABNORMAL) Renal function panel (08/05/2024 8:55 AM MANAGING PRINCIPAL) Pathologist [facility] Glucose 135 65 - 139 mg/dL [facility] [...] [facility] Blood 08/05/2024 8:55 AM MANAGING PRINCIPAL 08/05/2024 8:56 AM MANAGING PRINCIPAL Narrative [facility] - 08/06/2024 6:10 AM MANAGING PRINCIPAL FASTING:NO FASTING: NO Caprice Gusman MD LAB BLOOD ORDERABLES Final Result Performing Organization Address City/[facility]/ZIP Co de Phone Number [facility] [address] [address] [phone] * (ABNORMAL) Lipid panel (01/21/2024 9:47 AM CDT) Cholesterol 151 <200 mg/dL [facility] [...] factors. LDL-C is now calculated using the Georgiana calculation, which is a validated novel method providing better accuracy than the Friedewald equation in the estimation of LDL-C. Carl SMITH et al. LETTY. 2013;310(19): 9222-8188 (http://education.RHM Technology/faq/GXB974) Chol/HDL ratio 3.8 <5.0 (calc) [facility] [...] Thibodeaux MD LAB BLOOD ORDERABLES Final Result [place] [place] [address] [place] [address] [address] * (ABNORMAL) Hemoglobin A1c (09/30/2022 8:48 AM MANAGING PRINCIPAL) Hgb A1C 8.1(H) 4.0 - 5.6 % [facility] Estimated Average Glucose 186 mg/dL [facility] Comment: The ADA recommends reporting an estimated Average Glucose (eAG) with all Hemoglobin A1c results using the equation derived from a study of 507 normal and diabetic adults. Minority populations were underrepresented and children were not included. (Diabetes Care 31:5179-5103, 2008). The eAG is not equivalent to a fasting glucose. Blood 09/30/2022 8:48 AM MANAGING PRINCIPAL 09/30/2022 10:00 AM MANAGING PRINCIPAL Honey Mitchell MD LAB BLOOD ORDERABL ES Final Result [facility] [address] [facility] [place] [address] from Last 3 Months or Most Recently Relevant to Health Maintenance Insurance [facility] Advance Directives For more information, please contact: [phone] * Full Code (Latest Code Status on File) Date Activated Date Inactivated Comments 09/30/2022 3:26 AM 10/02/2022 9:08 PM * Full Code Date Activated Date Inactivated Comments 04/10/2022 11:17 PM 04/11/2022 10:51 PM Care Teams Line Server Relationship Specialty Start Date End Date Adrian Owens MD [address] [place] [address] PCP - General 12/15/20
--- OUTSIDE RECORDS SUMMARY | 2024-10-02 11:51 | XMS_ITS | Referral Summary ---
Author Organization [facility] Address [address] [place] [address] Care Team Providers Care Mold Bunch Trimmer Name Role Phone Adrian Owens MD Primary Care Provider + Source Comments [facility],non-owned Affiliates and Associated Physician Practices is amultiple site organization consisting of ambulatory clinics and hospital sitesin [place], [place], [place] and [place]. This disclosure is being madepursuant to the Care Everywhere program and may not contain all information available regarding this patient. Last updated 18.[facility] Allergies No known active allergies Medications * Be aware that medications may not be up to date on this document. Alwaysverify current medications with the patient. Medication Sig Dispensed Refills Start Date End Date Status sertraline (ZOLOFT) 50 MG tablet Take 50 mg by mouth once daily Active ranolazine ER 12hr (RANEXA) 1000 MG tablet Take 1,000 mg by mouth 2 times daily 10/11/2020 Active propranolol (INDERAL) 80 MG tablet Take 60 mg by mouth 2 times daily 11/17/2020 Active lisinopril (PRINIVIL;ZESTRIL) 5 MG tablet Take 5 mg by mouth once daily 12/13/2020 Active isosorbide mononitrate CR 24hr (IMDUR) 60 MG tablet Take 60 mg by mouth once daily Takes One and a half tablets daily 12/24/2020 Active gabapentin (NEURONTIN) 300 MG capsule Take 300 mg by mouth 2 times daily 12/13/2020 Active cetirizine (ZYRTEC ALLERGY) 10 MG gel capsule Take 10 mg by mouth once daily Active atorvastatin (LIPITOR) 40 MG tablet Take 40 mg by mouth at bedtime 12/21/2020 Active ASPIRIN 81 PO Take 1 tablet by mouth once daily Active insulin isophane & reg, human, 70/30 (NOVOLIN 70/30) vial 44 Units 2 times daily Active amLODIPine (NORVASC) 10 MG tablet Take 1 (one) tablet by mouth once daily 30 tablet 03/26/2021 Active tamsulosin (FLOMAX) 0.4 MG capsule Take 1 (one) capsule by mouth once daily At the same time every day after a meal. 30 capsule 03/26/2021 Active finasteride (PROSCAR) 5 MG tablet Take 1 (one) tablet by mouth once daily 30 tablet 03/26/2021 Active Active Problems Problem Noted Date Diagnosed Date JUAN CARLOS (acute kidney injury) 03/23/2021 Social History Tobacco Use Types Packs/Day Years Used Date Smoking Tobacco: Never Smokeless Tobacco: Never Tobacco Cessation:Counseling Given: No Sex and Gender Information Value Date Recorded Sex Assigned at Not on file Gender Identity Male 03/23/2021 11:08 PM CDT Sexual Orientation Straight 03/29/2021 10 :03 AM CDT Last Filed Vital Signs Vital Sign Reading Time Taken Comments Blood Pressure 106/71 04/01/2021 2:26 PM CDT Pulse 75 04/01/2021 2:26 PM CDT Temperature 37.2 C (98.9 F) 04/01/2021 2:26 PM CDT Respiratory Rate 20 03/25/2021 4:39 PM CDT Oxygen Saturation 100% 03/25/2021 4:39 PM CDT Inhaled Oxygen Concentration - - Weight 138.3 kg (305 lb) 04/01/2021 2:26 PM CDT Height 188 cm (6' 2 ) 04/01/2021 2:26 PM CDT Body Mass Index 39.16 04/01/2021 2:26 PM CDT Functional Status Functional Status Response Date of Assess ment Is person deaf or have serious hearing difficult y? No 03/24/2021 Is person blind or have serious difficulty seein g? No 03/24/2021 Does person have serious dif ficulty walking/climbing stairs? No 03/24/2021 Does person have difficulty dressing/bathing? No 03/24/2021 Does person have difficulty doing errands alone? No 03/24/2021 Cognitive Status Response Date of Assessm ent Does person have difficulty concentrating/remembering/making decisions? No 03/24/2021 Plan of Treatment Not on file Procedures Procedure Name Priority Date/Time Associated Diagnosis Comments BASIC METABOLIC PANEL (CALCIUM TOTAL) AM Draw 03/25/2021 4:40 AM CDT from Last 3 Months or Most Recently Relevant to Health Maintenance Results * (ABNORMAL) BASIC METABOLIC PANEL (CALCIUM TOTAL) (03/25/2021 4:40 AM CDT) [facility] Glucose 189(H) 70 - 105 mg/dL 03/25/2021 5:24 AM [facility] Sodium 138 136 - 145 mmol/L 03/25/2021 5:24 AM [facility] Potassium 4.8 3.5 - 5.1 mmol/L 03/25/2021 5:24 AM [facility] Chloride 111(H) 98 - 107 mmol/L 03/25/2021 5:24 AM [facility] CO2 17(L) 23 - 31 mmol/L 03/25/2021 5:24 AM [facility] Calcium 8.7 8.4 - 10.4 mg/dL 03/25/2021 5:24 AM [facility] Anion Gap 10 8 - 18 mmol/L 03/25/2021 5:24 AM [facility] BUN 38(H) 8.4 - 25.7 mg/dL 03/25/2021 5:24 AM [facility] Creatinine 1.64(H) 0.72 - 1.25 mg/dL 03/25/2021 5:24 AM [facility] eGFR by MDRD 43(L) >60 mL/min/1.7 3m2 03/25/2021 5:24 AM [facility] eGFR by MDRD 52(L) >60 mL/min/1.7 3m2 03/25/2021 5:24 AM [facility] Blood BLOOD SPECIMEN / Unknown Lab Venipuncture / Unknown 03/25/2021 4:40 AM CDT 03/25/2021 4:50 AM CDT Edy Brandon MD LAB - CHEMISTRY [facility] [address] [place] [id number] from Last 3 Months or Most Recently Relevant to Health Maintenance Advance Directives * Full Code (Latest Code Status on File) Date Activated Date Inactivated Comments 03/24/2021 12:27 AM 03/25/2021 6:57 PM Care Teams Mold Bunch Trimmer Relationship Specialty Start Date End Date Adrian Owens MD [address] [place] [address] PCP - General Family Medicine 03/23/21
--- OUTSIDE RECORDS SUMMARY | 2024-10-02 11:51 | XMS_ITS | Encounter Summary ---
Author Organization [facility] Address [address] [place] [address] Care Team Providers Care Assistant Financial Accountant Name Role Phone Adrian Owens MD Primary Care Provider [phone] Chepe Luna MD Unavailable [phone] Walter Andre MD Unavailable Encounter Details Date Type Department Care Team (Late st Contact Info) Description 01/24/2019 Abstract [facility] at [facility], [address] [address] [place] At[place] Social History Tobacco Use Types Packs/Day Years Used Date Smoking Tobacco: Never Smokeless Tobacco: Never Alcohol Use Standard Drinks/Week Comments No 0 (1 standard drink = 0.6 oz pur e alcohol) AUDIT-C Answer Date Recorded Frequency of Alcohol Consumption Never 01/23/2019 Average Number of Drinks Not on file 019 Frequency of Binge Drinking Not on file 01/2019 Sex and Gender Information Value Date Recorded Sex Assigned at Not on file Legal Sex Male 8:31 PM CDT Gender Identity Not on file Sexual Orientation Straight 12/05/2021 11 :11 AM CDT documented as of this encounter Plan of Treatment Not on file documented as of this encounter Procedures Procedure Name Priority Date/Time Associated Diagnosis Comments COMPREHENSIVE METABOLIC PANEL Routine 12/11/2018 LIPID PANEL Routine 12/11/2018 HEMOGLOBIN, GLYCOSYLATED Routine 12/11/2018 THYROID STIM HORMONE TSH Routine 12/11/2018 CBC (OUTSIDE LAB) Routine 03/13/2018 CBC (OUTSIDE LAB) Routine 11/11/2017 BASIC METABOLIC PANEL Routine 11/11/2017 HEPATIC FUNCTION PANEL Routine 11/09/2017 PROTIME (OUTSIDE LAB) Routine 11/06/2017 documented in this encounter Results * THYROID STIM HORMONE, TSH (12/11/2018) TSH 2.82 12/11/2018 [facility] Final Result * HEMOGLOBIN, GLYCOSYLATED (12/11/2018) HGB A1C 11.8 12/11/2018 [facility] Final Result * (ABNORMAL) COMPREHENSIVE METABOLIC PANEL (12/11/2018) SODIUM S/P/B 138 POTASSIUM S/P/B 5.6 CO2 25 CHLORIDE S/P/B 103 GLUCOSE 317 mg/dL CALCIUM S/P/B 9.6 BUN 35 CREATININE S/P/B 1.65(A) 0.7 - 1.3 EGFR AFR. AMER. 51 EGFR NON-AFR. AMER. 44 <=90 ALKALINE PHOSPHATASE S/P/B 66 ALT 13 AST 11 BILIRUBIN TOTAL S/P/B 0.5 ALBUMIN S/P/B 4.1 3.5 - 5.0 TOTAL PROTEIN S/P/B 7.0 GLOBULIN 2.9 12/11/2018 [facility] Final Result * LIPID PANEL (12/11/2018) CHOLESTEROL 180 HDL 36 TRIGLYCERIDES 332 NON HDL CHOLESTEROL 144 LDL (CALCULATED) 100 12/11/2018 [facility] Final Result * CBC (OUTSIDE LAB) (03/13/2018) WBC 6.8 HGB 12.6 HCT 38.8 PLT 221 03/13/2018 [facility]-OUTSIDE/ABSTRACTED Final Result * CBC (OUTSIDE LAB) (11/11/2017) Pathologist [facility] WBC 12.4 HGB 12.2 HCT 36.2 PLT 253 11/11/2017 us [facility]-OUTSIDE/ABSTRACTED Final Result * BASIC METABOLIC PANEL (11/11/2017) Pathologist [facility] SODIUM S/P/B 138 POTASSIUM S/P/B 4.5 CO2 25 CHLORIDE S/P/B 100 GLUCOSE 220 mg/dL CALCIUM S/P/B 9.1 BUN 30 CREATININE S/P/B 0.8 0.7 - 1.3 EGFR NON-AFR. AMER. >90 <=90 11/11/2017 us [facility] Edited Resul t - Final * (ABNORMAL) HEPATIC FUNCTION PANEL (11/09/2017) Pathologist [facility] ALBUMIN S/P/B 2.8(A) 3.5 - 5.0 ALKALINE PHOSPHATASE S/P/B 552 ALT 11 AST 15 BILIRUBIN TOTAL S/P/B 0.4 TOTAL PROTEIN S/P/B 6.8 GLOBULIN 3.0 11/09/2017 us [facility] Edited Resul t - Final * PROTIME (OUTSIDE LAB) (11/06/2017) PROTIME 12.4 INR 0.93 11/06/2017 us Doc [facility]OUTSIDE/ABSTRACTED Final Result documented in this encounter Visit Diagnoses Not on filedocumented in this encounter Care Teams Assistant Financial Accountant Relationship Specialty Start Date End Date Adrian Owens MD [address] [address] PCP - General FAMILY PRACTICE 12/27/18 Chepe Luna MD [address] [address] [employer] CARDIOVASCULAR DISEASE 01/16/19 06/10/19 Walter Andre MD [facility] [address] [place] [address] [employer]ophy Maintenance [employer] CARDIOVASCULAR DISEASE 10/17/19 documented as of this encounter
--- OUTSIDE RECORDS SUMMARY | 2024-10-02 11:51 | XMS_ITS | Patient Health Summary ---
Author Organization [facility] [employer] Address [address] [place] [address] Care Team Providers Care Senior Care Provider Name Role Phone Adrian Owens MD Primary Care Provider + Note from [facility],non-owned Affiliates and Associated Physician Practices is amultiple site organization consisting of ambulatory clinics and hospital sitesin [place], [place], [place] and [place]. This disclosure is being madepursuant to the Care Everywhere program and may not contain all information available regarding this patient. Last updated 18.[facility] [employer] Allergies No known active allergies Medications * Be aware that medications may not be up to date on this document. Alwaysverify current medications with the patient. * sertraline (ZOLOFT) 50 MG tablet Take 50 mg by mouth once daily * ranolazine ER 12hr (RANEXA) 1000 MG tablet(Started 10/11/2020) Take 1,000 mg by mouth 2 times daily * propranolol (INDERAL) 80 MG tablet(Started 11/17/2020) Take 60 mg by mouth 2 times daily * lisinopril (PRINIVIL;ZESTRIL) 5 MG tablet(Started 12/13/2020) Take 5 mg by mouth once daily * isosorbide mononitrate CR 24hr (IMDUR) 60 MG tablet(Started 12/24/2020) Take 60 mg by mouth once daily Takes One and a half tablets daily * gabapentin (NEURONTIN) 300 MG capsule(Started 12/13/2020) Take 300 mg by mouth 2 times daily * cetirizine (ZYRTEC ALLERGY) 10 MG gel capsule Take 10 mg by mouth once daily * atorvastatin (LIPITOR) 40 MG tablet(Started 12/21/2020) Take 40 mg by mouth at bedtime * ASPIRIN 81 PO Take 1 tablet by mouth once daily * insulin isophane & reg, human, 70/30 (NOVOLIN 70/30) vial 44 Units 2 times daily * amLODIPine (NORVASC) 10 MG tablet(Started 03/26/2021) Take 1 (one) tablet by mouth once daily * tamsulosin (FLOMAX) 0.4 MG capsule(Started 03/26/2021) Take 1 (one) capsule by mouth once daily At the same time every day after a meal. * finasteride (PROSCAR) 5 MG tablet(Started 03/26/2021) Take 1 (one) tablet by mouth once daily Active Problems Problem Noted Date Diagnosed Date [...] Mass Index 39.16 04/01/2021 2:26 PM CDT Procedures * EEG(Performed 04/28/2021) Performed for Fall, initial encounter * CARDIAC EKG ORDER(Performed 03/28/2021) * CARDIAC EKG ORDER(Performed 03/28/2021) * CARDIAC EKG ORDER(Performed 03/28/2021) * GLUCOSE - POINT OF CARE(Performed 03/25/2021) * GLUCOSE - POINT OF CARE(Performed 03/25/2021) * GLUCOSE - POINT OF CARE(Performed 03/25/2021) * MAGNESIUM BLOOD(Performed 03/25/2021) * BASIC METABOLIC PANEL (CALCIUM TOTAL)(Performed 03/25/2021) * CBC W/O DIFFERENTIAL(Performed 03/25/2021) * GLUCOSE - POINT OF CARE(Performed 03/24/2021) * GLUCOSE - POINT OF CARE(Performed 03/24/2021) * VITAMIN B12(Performed 03/24/2021) * MRI BRAIN WO CONTRAST(Performed 03/24/2021) Performed for Syncope, unspecified syncope type * GLUCOSE - POINT OF CARE(Performed 03/24/2021) * GLUCOSE - POINT OF CARE(Performed 03/24/2021) * LIPID PROFILE(Performed 03/24/2021) Performed for JUAN CARLOS (acute kidney injury) (HCC) * HEMOGLOBIN A1C(Performed 03/24/2021) * BASIC METABOLIC PANEL (CALCIUM TOTAL)(Performed 03/24/2021) * URINE MICROSCOPIC ONLY(Performed 03/24/2021) * URINALYSIS REFLEX TO MICROSCOPIC NO CULTURE(Performed 03/24/2021) * TROPONIN I(Performed 03/24/2021) * LACTIC ACID BLOOD(Performed 03/24/2021) * CBC W/O DIFFERENTIAL(Performed 03/24/2021) * B-TYPE NATRIURETIC PEPTIDE(Performed 03/24/2021) * BASIC METABOLIC PANEL (CALCIUM TOTAL)(Performed 03/24/2021) Results * EEG (04/28/2021 12:00 PM CDT) 04/28/2021 12:0 0 PM CDT Narrative Procedure Note John Han MD - 04/28/2021 12:24 PM CDT [facility] Electroencephalogram Report PATIENT NAME: VICTORINO COBOS MR#: [id number] ROOM#: CSN: [id number] ADMISSION DATE: 04/28/2021 SEX: M : 1955 DATE OF TEST: 04/28/2021 EEG NUMBER: This is a routine 17-channel EEG tracing consisting of 16 channels of EEGand 1 channel of EKG monitoring performed on a 65-year-old patient, presented torule out seizures. The condition of the patient during tracing was reported manpreet awake and drowsy. Quality of the study was good. During wakefulness, the background activity consisted of moderateamplitude 9-10 Hz posterior dominant alpha rhythm. The background was well organizedwith good posterior to anterior gradient. During drowsiness, the background wasreplaced by theta rhythm. Photic stimulation did not elicit any abnormalities.There were no epileptiform discharges noticed. The EKG tracing showed a regularheart rate. IMPRESSION: This is a normal awake and drowsy EEG. Clinical correlationis suggested. DICTATOR: JOHN HAN M.D. MP/MODL #:[id number] cc: John Han M.D. John Han MD NEUROLOGY ORDERABLES Performing Organization Address [facility] Co de Phone Number [facility] * CARDIAC EKG ORDER (03/28/2021 9:13 PM CDT) Only the most recent of3 resultswithin the time period is included. Narrative 03/28/2021 9:13 PM CDT Ordered by an unspecified provider. Scanned Document CARDIAC SERVICES ORD ERABLES * (ABNORMAL) GLUCOSE - POINT OF CARE (03/25/2021 4:31 PM CDT) Only the most recent of7 resultswithin the time period is included. Pathologist [facility] Glucose WB/POC 192(H) 70 - 106 mg/dL 03/26/2021 11:07 AM CDT [facility] Specimen Type Arterial 03/26/2021 11:07 AM CDT [facility] Blood BLOOD SPECIMEN / Unknown 03/25/2021 4:31 PM CDT 03/26/2021 11:07 AM CDT Yves Muñoz MD LAB - POINT OF CARE ORDERABLES Performing Organization Address [facility] Co de Phone Number [facility] [address] [place] [address] * (ABNORMAL) CBC W/O DIFFERENTIAL (03/25/2021 4:40 AM CDT) Only the most recent of2 resultswithin the time period is included. WBC 8.3 4.4 - 10.7 x10E9/L 03/25/2021 4:59 AM CDT [facility] RBC 3.69(L) 3.80 - 5.40 x10E12/L 03/25/2021 4:59 AM CDT [facility] Hemoglobin 11.0(L) 12.0 - 17.6 gm/dL 03/25/2021 4:59 AM CDT [facility] Hematocrit 34.2(L) 35.2 - 51.7 % 03/25/2021 4:59 AM CDT [facility] MCV 92.7 80.7 - 98.3 fl 03/25/2021 4:59 AM CDT [facility] MCH 29.8 26.7 - 34.0 pg 03/25/2021 4:59 AM CDT [facility] MCHC 32.2 30.8 - 35.9 gm/dL 03/25/2021 4:59 AM CDT [facility] Platelet Count 236 153 - 416 x10E9/L 03/25/2021 4:59 AM CDT [facility] RDW-CV 14.9 12.1 - 14.9 % 03/25/2021 4:59 AM [facility] MPV 10.4 9.4 - 12.9 fl 03/25/2021 4:59 AM [facility] Blood BLOOD SPECIMEN / Unknown Lab Venipuncture / Unknown 03/25/2021 4:40 AM CDT 03/25/2021 4:51 AM CDT Edy Brandon MD LAB - HEMATOLOGY ORD ERABLES [facility] [address] [place] [address] * (ABNORMAL) BASIC METABOLIC PANEL (CALCIUM TOTAL) (03/25/2021 4:40 AM CDT) Only the most recent of3 resultswithin the time period is included. Glucose 189(H) 70 - 105 mg/dL 03/25/2021 5:24 AM CDT [facility] Sodium 138 136 - 145 mmol/L 03/25/2021 5:24 AM CDT [facility] Potassium 4.8 3.5 - 5.1 mmol/L 03/25/2021 5:24 AM CDT [facility] Chloride 111(H) 98 - 107 mmol/L 03/25/2021 5:24 AM CDT [facility] CO2 17(L) 23 - 31 mmol/L 03/25/2021 5:24 AM CDT [facility] Calcium 8.7 8.4 - 10.4 mg/dL 03/25/2021 5:24 AM CDT [facility] Anion Gap 10 8 - 18 mmol/L 03/25/2021 5:24 AM CDT [facility] BUN 38(H) 8.4 - 25.7 mg/dL 03/25/2021 5:24 AM CDT [facility] Creatinine 1.64(H) 0.72 - 1.25 mg/dL 03/25/2021 5:24 AM CDT [facility] eGFR by MDRD 43(L) >60 mL/min/1.7 3m2 03/25/2021 5:24 AM CDT [facility] eGFR by MDRD 52(L) >60 mL/min/1.7 3m2 03/25/2021 5:24 AM CDT [facility] Blood BLOOD SPECIMEN / Unknown Lab Venipuncture / Unknown 03/25/2021 4:40 AM CDT 03/25/2021 4:50 AM CDT Edy Brandon MD LAB - CHEMISTRY MONIQUE MILLER [facility] Organization Address City/State/ZIP Co de Phone Number [facility] [address] [place] [address] * MAGNESIUM BLOOD (03/25/2021 4:40 AM CDT) [facility] Magnesium 2.0 1.6 - 2.6 mg/dL 03/25/2021 5:24 AM CDT [facility] Blood BLOOD SPECIMEN / Unknown Lab Venipuncture / Unknown 03/25/2021 4:40 AM CDT 03/25/2021 4:50 AM CDT Edy Brandon MD LAB - CHEMISTRY MONIQUE MILLER [facility] [address] [place] [address] * VITAMIN B12 (03/24/2021 1:54 PM CDT) Vitamin B12 275 213 - 816 pg/mL 03/24/2021 2:51 PM CDT [facility] Blood BLOOD SPECIMEN / Unknown Lab Venipuncture / Unknown 03/24/2021 1:54 PM CDT 03/24/2021 2:03 PM CDT Edy Brandon MD LAB - CHEMISTRY MONIQUE MILLER Performing Organization Address [facility]/ZIP Co de Phone Number [facility] [address] [place] [address] * MRI BRAIN WO CONTRAST (03/24/2021 1:48 PM CDT) Anatomical Region Laterality Modality Head Magnetic Resonan ce 03/24/2021 2:02 PM CDT Impressions 03/24/2021 2:07 PM CDT 4 cm right anterior medial cranial fossa arachnoid cyst. Very subtle subcortical small vessel ischemic changes. No intracranial bleed or evidence of acute ischemic process. *Reading Radiologist: Jennifer Galicia on 03/24/2021 at 2:07 PM Narrative 03/24/2021 2:07 PM CDT MR brain without contrast: HISTORY: 65-year-old with recurrent syncope and falls. Headache and facial pain after fall. TECHNIQUE: MR imaging of the brain was performed using multiple planes and multiple sequences. No intravenous contrast was administered. COMPARISON: None. FINDINGS: The ventricles are midline, mildly prominent, proportionate to the sulci. There is no extraaxial hematoma. There is no subarachnoid bleed. The basilar cisterns are preserved. There is a right anterior middle cranial fossa arachnoid cyst, that measures 4 x 2.2 cm in the transverse and AP dimensions. There are very few miniscule areas of increased T2 and FLAIR signal at the subcortical white matter, most consistent with subtle small vessel ischemic changes. The cerebellar pontine angles are patent. The major vascular flow voids are maintained. The retro-orbital fat is normal. The visualized portions of the paranasal sinuses demonstrate normal aeration. The mastoid cells appear well aerated. On the diffusion sequences, there is no evidence of acute ischemic process. Procedure Note Jennifer Galicia MD - 03/24/2021 MR brain without contrast: HISTORY: 65-year-old with recurrent syncope and falls. Headache and facial pain after fall. TECHNIQUE: MR imaging of the brain was performed using multiple planes and multiple sequences. No intravenous contrast was administered. COMPARISON: None. FINDINGS: The ventricles are midline, mildly prominent, proportionate to the sulci. There is no extraaxial hematoma. There is no subarachnoid bleed. The basilar cisterns are preserved. There is a right anterior middle cranial fossa arachnoid cyst, that measures 4 x 2.2 cm in the transverse and AP dimensions. There are very few miniscule areas of increased T2 and FLAIR signal at the subcortical white matter, most consistent with subtle small vessel ischemic changes. The cerebellar pontine angles are patent. The major vascular flow voids are maintained. The retro-orbital fat is normal. The visualized portions of the paranasal sinuses demonstrate normal aeration. The mastoid cells appear well aerated. On the diffusion sequences, there is no evidence of acute ischemic process. IMPRESSION 4 cm right anterior medial cranial fossa arachnoid cyst. Very subtle subcortical small vessel ischemic changes. No intracranial bleed or evidence of acute ischemic process. *Reading Radiologist: Jennifer Galicia on 03/24/2021 at 2:07 PM Edy Brandon MD MR ORDERABLES * (ABNORMAL) HEMOGLOBIN A1C (03/24/2021 4:50 AM CDT) Hemoglobin A1c 7.5(H) 4.2 - 5.6 % 03/24/2021 5:21 AM T [facility] Estimated Average Glucose 169 mg/dL 03/24/2021 5:21 AM [facility] Blood BLOOD SPECIMEN / Unknown Lab Venipuncture / Unknown 03/24/2021 4:50 AM CDT 03/24/2021 5:06 AM CDT [facility] - 03/24/2021 5:21 AM CDT The following cutoff levels are recommended by [place] [employer]. A1c > 6.5% : considered as diabetes if two separate tests >6.5% or in an appropriate clinical setting. A1c 5.7% - 6.4% : considered as prediabetes (suggest increased risk for diabetes and cardiovascular disease) Control target level: Should be individualized. < 7 for general (non-) , < 8% less stringent goal, < 6.5 more stringent goal. Hemoglobin A1c measurements are used as an aid in the diagnosis of diabetic mellitus, as an aid to identify patients who may be at the risk for developing diabetic mellitus, and for the monitoring long-term blood glucose control in individuals with diabetes mellitus. This test should not replace glucose testing for patients with Type 1 diabetes, pediatric patients, or women. Falsely low HbA1c results may be observed in patients with clinical conditions that shorten erythrocyte life span or decrease mean erythrocyte age such as the presence of unstable hemoglobin variants, elevated hemoglobin F level or other causes of hemolytic anemia . HbA1c may not accurately reflect glycemic control when clinical conditions that affect erythrocyte survival are present. Severe Iron deficiency anemia may yield falsely high results. Hemoglobin A1c assay should not be used to diagnose or monitor diabetes in patients with malignancy, recent blood transfusion, chronic kidney or liver disease. This method may yield falsely low results when hemoglobin (HbF) exceeds 5% in the specimen. Sharon Flores MD LAB - [facility] Organization Address City/State/ZIP Co de Phone Number [facility] [address] [place] [id number] * (ABNORMAL) LIPID PROFILE (03/24/2021 4:50 AM CDT) [facility] Cholesterol 172 <200 mg/dL 03/24/2021 5:40 AM CDT [facility] Triglycerides 255(H) <150 mg/dL 03/24/2021 5:40 AM CDT [facility] HDL Cholesterol 33(L) >40 mg/dL 5:40 AM CDT [facility] LDL Calculated 88 <130 mg/dL 03/24/2021 5:40 AM CDT [facility] VLDL Calculated 51(H) <=30 mg/dL 5:40 AM CDT [facility] Chol HDL Ratio 5.2(H) <4.5 03/24/2021 5:40 AM CDT [facility] LDL/HDL Ratio 2.7 <5.0 03/24/2021 5:40 AM [facility] Blood BLOOD SPECIMEN / Unknown Lab Venipuncture / Unknown 03/24/2021 4:50 AM CDT 03/24/2021 5:05 AM CDT Sharon Flores MD LAB - CHEMISTRY MONIQUE MILLER [facility] [address] [place], [place] [id number] * (ABNORMAL) URINALYSIS REFLEX TO MICROSCOPIC NO CULTURE (03/24/2021 1:45 AM CDT) Color UA Red(A) Straw, Yellow 03/24/2021 1:51 AM [facility] Clarity UA Slt Cloudy(A) Clear 03/24/2021 1:51 AM [facility] Glucose UA 2+(A) Negative 03/24/2021 1:51 AM [facility] Bilirubin UA Negative Negative 03/24/2021 1:51 AM [facility] Ketone UA Negative Negative 03/24/2021 1:51 AM [facility] Specific [place] UA 1.012 1.005 - 1.030 03/24/2021 1:51 AM [facility] Blood UA 3+(A) Negative 03/24/2021 1:51 AM [facility] pH UA 6.0 5.0 - 8.0 pH 03/24/2021 1:51 AM [facility] Protein UA 3+(A) Negative 03/24/2021 1:51 AM [facility] Urobilinogen UA Negative Negative mg/dL 03/24/2021 1:51 AM [facility] Nitrite UA Negative Negative 03/24/2021 1:51 AM [facility] Leukocyte UA Negative Negative 03/24/2021 1:51 AM [facility] Urine Microscopy Urine microscopy to follow 03/24/2021 1:51 AM [facility] Urine URINE SPECIMEN OBTAINED VIA [employer]IN[employer] CATHE[employer] / Unknown Collection / Unknown 03/24/2021 1:45 AM CDT 03/24/2021 1:45 AM CDT Narrative [facility] - 03/24/2021 1:51 AM CDT Sharon Flores MD LAB - URINALYSIS ORD ERABLES Performing Organization Address City/[facility]/ZIP Co de Phone Number [facility] [address] [place] [address] * (ABNORMAL) URINE MICROSCOPIC ONLY (03/24/2021 1:45 AM CDT) RBC UA >100(A) None Seen, 0-2, 3-5 # /hpf 03/24/2021 1:56 AM CDT [facility] WBC UA 0-5 None Seen, 0-5 # /hpf 03/24/2021 1:56 AM CDT [facility] Bacteria UA None Seen None Seen 03/24/2021 1:56 AM CDT [facility] Squamous Epithelial Cells None Seen None Seen, 0-2, 3-5 /hpf 03/24/2021 1:56 AM CDT [facility] Urine URINE SPECIMEN OBTAINED VIA [employer]HE[employer] / Unknown Collection / Unknown 03/24/2021 1:45 AM CDT 03/24/2021 1:45 AM CDT Narrative [facility] - 03/24/2021 1:56 AM CDT Shaorn Flores MD LAB - URINALYSIS ORD ERABLES [facility] [address] [place] [address] * TROPONIN I (03/24/2021 1:30 AM CDT) Troponin I <0.010 <0.038 ng/mL 03/24/2021 1:49 AM CDT [facility] Blood BLOOD SPECIMEN / Unknown Venipuncture / Unknown 03/24/2021 1:30 AM CDT 03/24/2021 1:25 AM CDT Sharon Flores MD LAB - CHEMISTRY MONIQUE MILLER [facility] [address] [place] [address] * (ABNORMAL) B-TYPE NATRIURETIC PEPTIDE (03/24/2021 1:30 AM CDT) BNP 155(H) <=100 pg/mL 03/24/2021 2:04 AM CDT [facility] Blood BLOOD SPECIMEN / Unknown Venipuncture / Unknown 03/24/2021 1:30 AM CDT 03/24/2021 1:25 AM CDT Sharon Flores MD LAB - CHEMISTRY MONIQUE MILLER Performing Organization Address City/[facility]/ZIP Co de Phone Number [facility] [address] [place] [address] * LACTIC ACID BLOOD (03/24/2021 1:30 AM CDT) Lactic Acid 0.9 0.5 - 2.2 mmol/L 03/24/2021 1:42 AM CDT [facility] Blood BLOOD SPECIMEN / Unknown Venipuncture / Unknown 03/24/2021 1:30 AM CDT 03/24/2021 1:25 AM CDT Sharon Flores MD LAB - CHEMISTRY MONIQUE MILLER [facility] [address] [place] [address] Care Teams Senior Care Provider Relationship Specialty Start Date End Date Adrian Owens MD [address] [place] [id number] PCP - General Family Medicine 03/23/21
--- OUTSIDE RECORDS SUMMARY | 2024-10-02 11:51 | XMS_ITS | Encounter Summary ---
Author Organization [facility] Care Team Providers Care Automobile Spring Repairer Name Role Phone Adrian Owens MD Primary Care Prov ider Encounter Details Date Type Department Care Team (Latest Contact Info) Description 05/30/2018 Orders Only [facility] CLINCONV ProviderJaime MD [address] [place] [id number] Social History Tobacco Use Types Packs/Day Years Used Date Smoking Tobacco: Never Assessed Sex and Gender Information Value Date Recorded Sex Assigned at Not on file Legal Sex Male 6:50 PM [facility] Gender Identity Not on file Sexual Orientation Not on file documented as of this encounter Plan of Treatment Not on file documented as of this encounter Procedures Procedure Name Priority Date/Time Associated Diagnosis Comments CARDIOLOGY REPORT 08/08/2018 12: 00 AM [facility] documented in this encounter Results * CARDIOLOGY REPORT (08/08/2018 12:00 AM [facility]) Anatomical Region Laterality Modality Other Narrative 08/08/2018 12:00 AM [facility] Ordered by an unspecified provider. Historical Provider [facility] BENJAMÍN FLOREZ Final Result documented in this encounter Visit Diagnoses Not on filedocumented in this encounter Additional Health Concerns Infection Onset Date Last Indicated Resolved Time COVID: Suspected 09/29/2022 09/29/2022 09/29/2022 8:55 PM [facility] documented as of this encounter Care Teams Automobile Spring Repairer Relationship Specialty Start Date End Date Adrian Owens MD [address] [place] [address] PCP - General 12/15/20 documented as of this encounter
--- OUTSIDE RECORDS SUMMARY | 2024-10-02 11:51 | XMS_ITS | Clinical Summary ---
Author Organization [employer] Address [address] [place] [address] Care Team Providers Care Hot Room Attendant Name Role Phone Adrian Owens MD Primary Care Provider + Source Comments [employer],non-owned Affiliates and Associated Physician Practices is amultiple site organization consisting of ambulatory clinics and hospital sitesin [place], [place], [place] and [place]. This disclosure is being madepursuant to the Care Everywhere program and may not contain all information available regarding this patient. Last updated 18.[employer] Allergies No known active allergies Medications * [...] Mass Index 39.16 04/01/2021 2:26 PM CDT Plan of Treatment Health Maintenance Due Date Last Done Comments COLOGUARD (AGES 45-75) - COLON CA SCREENING 1956 COLON MONITORING 1956 COLONOSCOPY - COLON CA SCREENING 1956 CT COLONOGRAPHY - COLON CA SCREENING 1955 Colorectal Cancer Screening 1956 FIT - COLON CA SCREENING 1956 FLEX SIG - COLON CA SCREENING 1956 HEPATITIS C SCREENING 05/16/1974 DTAP/TDAP/TD VACCINES (1 - Tdap) 1975 PNEUMOCOCCAL VACCINE 50+ (1 of 1 - PCV) 2006 ZOSTER VACCINE (1 of 2) 2006 SCREENING FOR DIABETES 03/25/2024 , 03/25/2021, 03/25/2021, Additional history exists COVID-19 VACCINE (2 - season) 2024 11/26/2020 INFLUENZA VACCINE (#1) 2024 DEPRESSION SCREENING 08/20/2024 MEDICARE AWV CALENDAR YEAR 2024 Respiratory Syncytial Virus (RSV) Vaccine Pt: or over 60 yrs (1 - 1-dose 75+ series) 2031 HEPATITIS B VACCINE Aged Out No longe r eligible based on patient's age to complete this topic HIB VACCINE Aged Out No longer eligi ble based on patient's age to complete this topic HPV VACCINE Aged Out No longer eligi ble based on patient's age to complete this topic MENINGOCOCCAL (Group B) VACCINE Aged Out No longer eligible based on patient's age to complete this topic MENINGOCOCCAL VACCINE Aged Out No paula regina eligible based on patient's age to complete this topic Procedures Procedure Name Priority Date/Time Associated Diagnosis Comments BASIC METABOLIC PANEL (CALCIUM TOTAL) AM Draw 03/25/2021 4:40 AM CDT from Last 3 Months or Most Recently Relevant to Health Maintenance Results * (ABNORMAL) BASIC METABOLIC PANEL (CALCIUM TOTAL) (03/25/2021 4:40 AM CDT) Glucose 189(H) 70 - 105 mg/dL 03/25/2021 5:24 AM CDT [facility] Sodium 138 136 - 145 mmol/L 03/25/2021 5:24 AM CDT [facility] Potassium 4.8 3.5 - 5.1 mmol/L 03/25/2021 5:[facility] Chloride 111(H) 98 - 107 mmol/L 03/25/2021 5:24 [facility] CO2 17(L) 23 - 31 mmol/L 03/25/2021 5:24 [facility] Calcium 8.7 8.4 - 10.4 mg/dL 03/25/2021 5:24 AM CDT [facility] Anion Gap 10 8 - 18 mmol/L 03/25/2021 5:24 AM CDT [facility] BUN 38(H) 8.4 - 25.7 mg/dL 03/25/2021 5:24 AM CDT [facility] Creatinine 1.64(H) 0.72 - 1.25 mg/dL 03/25/2021 5:24 AM CDT [facility] eGFR by MDRD 43(L) >60 mL/min/1.7 3m2 03/25/2021 5:24 AM CDT [facility] eGFR by MDRD 52(L) >60 mL/min/1.7 3m2 03/25/2021 5:24 AM CDT [facility] Blood BLOOD SPECIMEN / Unknown Lab Venipuncture / Unknown 03/25/2021 4:40 AM CDT 03/25/2021 4:50 AM CDT Edy Brandon MD LAB - CHEMISTRY MONIQUE MILLER [facility] [address] [place] [address] from Last 3 Months or Most Recently Relevant to Health Maintenance Advance Directives * Full Code (Latest Code Status on File) Date Activated Date Inactivated Comments 03/24/2021 12:27 AM 03/25/2021 6:57 PM Care Teams Hot Room Attendant Relationship Specialty Start Date End Date Adrian Owens MD [address] [address] PCP - General Family Medicine 03/23/21
--- OUTSIDE RECORDS SUMMARY | 2024-10-02 11:51 | XMS_ITS | Clinical Summary ---
Author Organization [facility] Address [address] [place] [address] Care Team Providers Care Freight [employer] Name Role Phone Adrian Owens MD Primary Care Provider [phone]- [phone] Walter Andre MD Unavailable Allergies Active Allergy Reactions Criticality Noted Date Comments Latex Rash Medium 12/06/2021 Medications pioglitazone 30 MG tablet Take 1 tablet (30 mg total) by mouth daily. 01/24/20 19 Active sertraline 50 MG tablet Take 1 tablet (50 mg total) by mouth daily. 01/24/20 19 Active atorvastatin 40 MG tablet Take 1 tablet (40 mg total) by mouth nightly at bedtime. 01/24/20 19 Active gabapentin 300 MG capsule Take 1 capsule (300 mg total) by mouth 2 (two) times daily. 01/24/20 Active aspirin 81 MG tablet Take 1 tablet (81 mg total) by mouth daily. 01/24/20 19 Active cetirizine 10 MG tablet Take 1 tablet (10 mg total) by mouth daily. 01/24/20 19 Active nitroglycerin 0.[address] 1 tablet (0.4 mg total) under the tongue every 5 (five) minutes as needed for Chest Pain (If taking 3 dose, contact 911.). 50 tablet 12 01/24/20 Active HUMULIN 70/30 (70-30) 100 UNIT/ML injection Inject 50 Units into the skin 2 (two) times daily. 10/31/19 Active propranolol 60 MG tablet Take 60 mg by mouth 2 (two) times daily. Active LANTUS SOLOSTAR 100 UNIT/ML injection (PEN) Inject 50 Units into the skin nightly at bedtime. 09/14/19 Active NOVOLOG FLEXPEN 100 UNIT/ML injection (PEN) INJECT 10 UNITS SUBCUTANEOUSLY THREE TIMES DAILY WITH MEALS 11/24/19 Active Dapagliflozin Propanediol 10 MG Tab Take 10 mg by mouth daily. 11/25/19 Active propranolol 80 MG tablet Take 80 mg by mouth 2 (two) times daily. 11/29/19 Active Dulaglutide (TRULICITY) 1.5 MG/0.5ML Solution Pen-injector Inject 1.5 mg into the skin. Once a wk Active isosorbide mononitrate ER (IMDUR) 60 MG 24 hr tablet TAKE 1 & 1/2 (ONE & ONE-HALF) TABLETS BY MOUTH ONCE DAILY 135 tablet 1 08/22/19 23 Active ranolazine ER 1000 MG TABLET SR 12 HR 12 hr tablet Take 1 tablet by mouth 2 (two) times daily. Appt needed for future refills 60 tablet 12/23/19 23 Active Active Problems Problem Noted Date Diagnosed Date CAD (coronary artery disease) 01/23/2019 Essential hypertension 01/23/2019 Type 2 diabetes mellitus ([facility]) 01/23 Mixed hyperlipidemia 01/23/2019 Obesity (BMI 35.0-39.9 without comorbidity) 01/2019 Resolved Problems Problem Noted Date Diagnosed Date Resolved Date S/P CABG (coronary artery bypass graft) 01/23/2019 10/16/2019 Overview (01/23/2019): 10/2017 at [facility] [place] [facility]. Normal LV function. Dr. Raj Etienne On statin therapy 01/23/2019 10/16/2019 Antiplatelet or antithrombotic long-term use 9 10/16/2019 Immunizations Name Administration Dates Next Due PFIZER COVID-19 (ORIGINAL FO RMULATION, PURPLE CAP) mRNA, LNP-S, PF, 30 MCG/0.3 ML DOSE 11/26/2020 Family History Medical History Relation Comments Cancer Father CHF Mother Diabetes Mother Relation Status Comments Father Mother Social History Tobacco Use Types Packs/Day Years [...] Orientation Straight 12/05/2021 11 :11 AM CDT Last Filed Vital Signs Vital Sign Reading Time Taken Comments Blood Pressure 110/66 12/06/2021 9:07 AM CDT Pulse 84 12/06/2021 9:07 AM CDT Temperature 36.2 C (97.1 F) 03/23/2021 3:04 PM CDT Respiratory Rate 16 03/23/2021 8:45 PM CDT Oxygen Saturation 97% 12/06/2021 9:07 AM CDT Inhaled Oxygen Concentration - - Weight 137.4 kg (303 lb) 12/06/2021 9:07 AM CDT Height 185.4 cm (6' 1 ) 12/06/2021 9:07 AM CDT Body Mass Index 39.98 12/06/2021 9:07 AM CDT Plan of Treatment Health Maintenance Due Date Last Done Comments ASCVD Statin 1955 Colorectal Cancer Screening Colonoscopy (10 Years) 1956 Kidney Health Evaluation 1956 Diabetes: Retinopathy Eye Exam 1974 Hepatitis C 1974 Zoster Vaccines (1 of 2) 2006 RSV Immunization or 60+ Years (1 - Risk 60-74 years 1-dose series) 2016 ASCVD LDL 12/12/2019 12/11/2018 Annual Medicare Wellness Visit 2021 Hemoglobin A1C 09/24/2021 03/24/2021, 12/16/2020, 12/11/2018 Lipid Panel 03/24/2022 03/24/2021, 12/11/2018 COVID-19 Vaccine (3 - 2023-2 5 season) 2024 01/11/2021, 11/26/2020 Influenza Adult (#1) 2024 09/13/2023, 05/15/2022 DTaP, Tdap and Td Vaccines ( 2 - Td or Tdap) 09/08/2033 09/08/2023 Pneumococcal Vaccine: 65+ Years Completed 05/15/2022 Meningococcal B Vaccine Aged Out No l onger eligible based on patient's age to complete this topic Meningococcal Vaccine Aged Out No paula regina eligible based on patient's age to complete this topic RSV Immunizations Under 20 Months Aged Out No longer eligible b ased on patient's age to complete this topic Procedures Procedure Name Priority Date/Time Associated Diagnosis Comments LIPID PANEL Routine 12/11/2018 HEMOGLOBIN, GLYCOSYLATED Routine 12/11/2018 from Last 3 Months or Most Recently Relevant to Health Maintenance Results * LIPID PANEL (12/11/2018) CHOLESTEROL 180 HDL 36 TRIGLYCERIDES 332 NON HDL CHOLESTEROL 144 LDL (CALCULATED) 100 12/11/2018 [facility] Final Result * HEMOGLOBIN, GLYCOSYLATED (12/11/2018) HGB A1C 11.8 12/11/2018 [facility] Final Result from Last 3 Months or Most Recently Relevant to Health Maintenance Insurance [facility] Care Teams Freight Car [employer] Relationship Specialty Start Date End Date Adrian Owens MD [address] [facility] [address] [place] [address] PCP - General FAMILY PRACTICE 12/27/18 Walter Andre MD [facility] [address] [place] [address] [employer] Support CARDIOVASCULAR DISEASE 10/17/19
--- NOTE | 2024-10-02 14:01 | ED_ITS ---
HPI - General Adult General Chief complaint: Skin/Abscess/Foreign Body <Eliana Lamar, POWER SCREWDRIVER OPERATOR - Last Filed: 10/02/24 14:09> Stated complaint: toe skin concerns, reports black toe <Eliana Lamar POWER SCREWDRIVER OPERATOR - Last Filed: 10/02/24 14:09> Time Seen by Provider: 10/02/24 14:40 <Eliana Lamar, POWER SCREWDRIVER OPERATOR - Last Filed: 10/02/24 14:09> Focused HPI: Aj Blanc is a 69 y/o male PMhx of DM and left great toe amputation who presents with reports of injuring his right great toe about a week and half ago and he states that the toe has been starting to look worse/ increased redness - he went to see his PCP today and they were concerned for cellulitis, he started to get light headed/ dizzy and hot at the PCP office and they sent him here for evaluation. Right great toe + eschar / erythema / purulent drainage with surrounding erythema GENERAL: well-nourished, and in no acute distress. HEAD: Normocephalic, atraumatic. CHEST: Clear to auscultation. ?No respiratory distress. HEART: Regular rate and rhythm.? NEURO: ?Alert and oriented x3. Patient screened in triage and initial orders placed.? ?Additional care and disposition to be based upon?diagnostic testing and treatment. <Eliana Lamar, POWER SCREWDRIVER OPERATOR - Last Filed: 10/02/24 14:09> History of Present Illness HPI narrative: Agree with HPI. Trauma to the right great toe 1.5 weeks ago. Increase redness/swelling, dark scab/eschar with dorsal aspect. No fevers or chills or sweats. Cannot feel pain due to neuropathy. <Dariusz Prince MD - Last Filed: 10/02/24 20:44> Related Data Home medications: Home Medications ?Medication ?Instructions ?Recorded ?Confirmed ?Last Taken ?Type aspirin 81 mg tablet 81 mg PO DAILY 03/14/21 10/02/24 Unknown History cetirizine 10 mg capsule (Zyrtec) 10 mg PO DAILY PRN 03/14/21 10/02/24 Unknown History ranolazine 1,000 mg 1,000 mg PO Q12H 03/14/21 10/02/24 Unknown History tablet,extended release,12 hr fluticasone propionate 50 1 spray intranasal DAILY 10/12/22 10/02/24 Unknown History mcg/actuation nasal spray,suspension (Flonase Allergy Relief) calcitriol 0.25 mcg capsule 0.25 mcg PO 3XW 09/08/24 10/02/24 Unknown History ezetimibe 10 mg tablet 10 mg PO DAILY 09/08/24 10/02/24 Unknown History semaglutide 0.25 mg or 0.5 mg (2 0.25 mg subcut WEEKLY 10/02/24 10/02/24 Unknown History mg/3 mL) subcutaneous pen injector (Ozempic) <Eliana Lamar APRN - Last Filed: 10/02/24 14:09> Allergies/adverse reactions: Allergies Allergy/AdvReac Type Severity Reaction Status Date / Time No Known Allergies Allergy Verified 10/02/24 20:30 <Eliana Lamar APRN - Last Filed: 10/02/24 14:09> Review of Systems 2 Review of Systems: All systems reviewed & are unremarkable except as noted in HPI and below <Dariusz Prince MD - Last Filed: 10/02/24 20:44> Constitutional: Constitutional: Reports no additional constitutional complaints <Dariusz Prince MD - Last Filed: 10/02/24 20:44> Cardiovascular: Cardiovascular: Reports no additional cardiovascular complaints <Dariusz Prince MD - Last Filed: 10/02/24 20:44> Respiratory: Respiratory: Reports no additional respiratory complaints < Dariusz Prince MD - Last Filed: 10/02/24 20:44> Gastrointestinal: Gastrointestinal: Reports no additional gastrointestinal complaints <Dariusz Prince MD - Last Filed: 10/02/24 20:44> Musculoskeletal: Musculoskeletal: Denies back pain, Denies arthralgias and Reports joint swelling <Dariusz Prince MD - Last Filed: 10/02/24 20:44> Integumentary/Breasts: Skin/Breast: Denies pruritus, Reports erythema, Denies rash and Reports skin ulcer <Dariusz Prince MD - Last Filed: 10/02/24 20:44> PMFSH Past Medical History Medical History: Medical History Gastro-esophageal reflux disease without esophagitis Chronic kidney disease, stage 3b Major depressive disorder, recurrent, mild Diastolic dysfunction (03/2022) Coronary artery disease with angina pectoris Essential tremor Long-term insulin use Hypertensive chronic kidney disease with stage 1 through stage 4 chronic kidney disease, or unspecified chronic kidney disease Risk for falls Pure hypercholesterolemia Essential (primary) hypertension Type 2 diabetes mellitus with hyperglycemia <Eliana Lamar APRN - Last Filed: 10/02/24 14:09> Surgical History Surgical History: Surgical History Presence of aortocoronary bypass graft (10/2017) H/O foot surgery 2020, toe amputation S/P triple vessel bypass 10/2018 <Eliana Lamar POWER SCREWDRIVER OPERATOR - Last Filed: 10/02/24 14:09> Family History Family History: Family History Father Family history of cataracts Mother Family history of diabetes mellitus in first degree relative Other Cancer Diabetes mellitus Heart disease Hypertension <Eliana Lamar POWER SCREWDRIVER OPERATOR - Last Filed: 10/02/24 14:09> Social History Social History: Social History Smoking status: Never smoker Second hand tobacco smoke exposure: No Alcohol intake: current Alcohol use details: 1-2 per year Substance use: never Substance use type: does not use Lack of Transportation: No Lack of Food: Never True Current Housing: I Have Housing Concerned About Future Housing: No Difficulty Paying Gas/Electric Bills: YES Difficulty Paying for Meds: YES Currently Unemployed: No Education: Associate Degree Difficulty w/ Childcare or Family Care: No Living arrangements: with family Occupation/Education: retired Gender identity (if verbalized by the patient): Male Spiritual care concerns: No Agree to blood products: Yes <Eliana Lamar POWER SCREWDRIVER OPERATOR - Last Filed: 10/02/24 14:09> Exam 2 Narrative: GENERAL: Well-appearing, well-nourished, and in no acute distress. HEAD: Normocephalic, atraumatic. ENT: Mucous membranes moist. CHEST: Clear to auscultation. No respiratory distress. HEART: Regular rate and rhythm. Normal peripheral pulses. ABDOMEN: Soft, nontender, nondistended. EXTREMITIES: Edematous right great toe. The great toe it is bruise at the hip and has a dark eschar like plaque proximal to the nail bed were patient is missing toenail which is chronic. The proximal great toe extending into the midfoot is erythematous with sloughing of the skin. SKIN: Warm, dry, no rash. NEURO: Alert and oriented x3. PSYCH: Normal mood and affect. <Dariusz Prince MD - Last Filed: 10/02/24 20:44> Course Course Emergency Course: Patient resting comfortably. Informed of results. Suspect fracture blister that has developed secondary cellulitis. IV antibiotics started. Admit to hospitalist service. Patient with acute on chronic renal failure and will give some fluids. <Dariusz Prince MD - Last Filed: 10/02/24 20:44> Vital Signs Vital signs: Vital Signs Temperature 97.6 F 10/02/24 11:49 Pulse Rate 70 10/02/24 11:49 Respiratory Rate 16 10/02/24 11:49 Blood Pressure 116/59 L 10/02/24 11:49 Pulse Oximetry 100 10/02/24 11:49 Oxygen Delivery Room Air 10/02/24 11:49 Temperature 97.6 F 10/02/24 11:49 Pulse Rate 70 10/02/24 11:49 Respiratory Rate 16 10/02/24 11:49 Blood Pressure 151/82 H 10/02/24 17:31 Pulse Oximetry 99 10/02/24 17:45 Oxygen Delivery Room Air 10/02/24 11:49 <Eliana Lamar, SUPA - Last Filed: 10/02/24 14:09> Vital Signs Temperature 97.6 F 10/02/24 11:49 Pulse Rate 70 10/02/24 11:49 Respiratory Rate 16 10/02/24 11:49 Blood Pressure 116/59 L 10/02/24 11:49 Pulse Oximetry 100 10/02/24 11:49 Oxygen Delivery Room Air 10/02/24 11:49 Temperature 97.6 F 10/02/24 11:49 Pulse Rate 70 10/02/24 11:49 Respiratory Rate 16 10/02/24 11:49 Blood Pressure 151/82 H 10/02/24 17:31 Pulse Oximetry 99 02/13/25 17:45 Oxygen Delivery Room Air 10/02/24 11:49 <Dariusz Prince MD - Last Filed: 10/02/24 20:44> Medical Decision Making Vital Signs Vital Signs: Vital Signs Temperature 97.6 F 10/02/24 11:49 Pulse Rate 70 10/02/24 11:49 Respiratory Rate 16 10/02/24 11:49 Blood Pressure 116/59 L 10/02/24 11:49 Pulse Oximetry 100 10/02/24 11:49 Oxygen Delivery Room Air 10/02/24 11:49 Temperature 97.6 F 10/02/24 11:49 Pulse Rate 70 10/02/24 11:49 Respiratory Rate 16 10/02/24 11:49 Blood Pressure 151/82 H 10/02/24 17:31 Pulse Oximetry 99 10/02/24 17:45 Oxygen Delivery Room Air 10/02/24 11:49 <Eliana Lamar, POWER SCREWDRIVER OPERATOR - Last Filed: 10/02/24 14:09> Vital Signs Temperature 97.6 F 10/02/24 11:49 Pulse Rate 70 10/02/24 11:49 Respiratory Rate 16 10/02/24 11:49 Blood Pressure 116/59 L 10/02/24 11:49 Pulse Oximetry 100 10/02/24 11:49 Oxygen Delivery Room Air 10/02/24 11:49 Temperature 97.6 F 10/02/24 11:49 Pulse Rate 70 10/02/24 11:49 Respiratory Rate 16 10/02/24 11:49 Blood Pressure 151/82 H 10/02/24 17:31 Pulse Oximetry 99 10/02/24 17:45 Oxygen Delivery Room Air 10/02/24 11:49 <Dariusz Prince MD - Last Filed: 10/02/24 20:44> Lab Data Result diagrams: 10/02/24 14:53 10/02/24 14:53 <Eliana Lamar, POWER SCREWDRIVER OPERATOR - Last Filed: 10/02/24 14:09> Labs: Lab Results 10/02/24 Range/Units 14:53 WBC 8.2 (4.5-10.0) K/mm3 RBC 3.59 L (4.6-6.20) M/mm3 Hgb 10.9 L (14.0-18.0) g/dL Hct 34.2 L (42.0-52.0) % MCV 95.3 (80-100) fl MCH 30.4 (26-34) pg MCHC 31.9 L (32-36) g/dl RDW 13.8 (11.5-14.5) % Plt Count 482 H (150-375) k/mm3 MPV 10.5 H (7.4-10.4) fl Immature Gran % (Auto) 1.6 H (0-0.5) % Neut % (Auto) 63.2 (45.5-73.1) % Lymph % (Auto) 23.3 (18.3-44.2) % Prowers % (Auto) 9.9 H (2.6-8.5) % Eos % (Auto) 1.5 (0-4.4) % Baso % (Auto) 0.5 (0.2-1.2) % Lymph # (Auto) 1.91 (0.9-3.2) K/mm3 Prowers # (Auto) 0.8 H (0.1-0.6) K/mm3 Eos # (Auto) 0.1 (0-0.3) K/mm3 Baso # (Auto) 0.0 (0.0-0.1) K/mm3 Abs Immat Gran (auto) 0.13 H (0.00-0.031) K/mm3 Absolute Neuts (auto) 5.2 (1.3-6.7) K/mm3 Absolute Nucleated RBC 0.000 (0.0-0.012) K/mm3 Nucleated RBC % 0.0 (0.0-0.2) % PT 16.1 H (11.1-14.7) Seconds INR 1.2 APTT 50.3 H (22.3-36.8) Seconds Sodium 135 L (137-145) mmol/L Potassium 5.1 H (3.4-5.0) mmol/L Chloride 102 (98-107) mmol/L Carbon Dioxide 18 L (22-30) mmol/L Anion Gap 15 H (4-12) mmol/L BUN 73 H (9-20) mg/dL Creatinine 3.32 H (0.7-1.3) mg/dL Estim Creat Clear Calc 28 ml/min Estimated GFR 19 L (59 - ) Glucose 346 H (65-110) mg/dL Lactic Acid 2.4 H (0.7-2.0) mmol/L Calcium 9.0 (8.4-10.2) mg/dL Total Bilirubin 1.0 (0.2-1.3) mg/dL AST 45 (17-59) U/L ALT 61 H (6-50) U/L Alkaline Phosphatase 125 (38-126) U/L C-Reactive Protein 17.8 H (<1.0) mg/dL Total Protein 7.0 (6.3-8.2) g/dL Albumin 3.4 L (3.5-5.1) g/dL <Eliana Lamar, POWER SCREWDRIVER OPERATOR - Last Filed: 10/02/24 14:09> Lab Results 10/02/24 Range/Units 14:53 WBC 8.2 (4.5-10.0) K/mm3 RBC 3.59 L (4.6-6.20) M/mm3 Hgb 10.9 L (14.0-18.0) g/dL Hct 34.2 L (42.0-52.0) % MCV 95.3 (80-100) fl MCH 30.4 (26-34) pg MCHC 31.9 L (32-36) g/dl RDW 13.8 (11.5-14.5) % Plt Count 482 H (150-375) k/mm3 MPV 10.5 H (7.4-10.4) fl Immature Gran % (Auto) 1.6 H (0-0.5) % Neut % (Auto) 63.2 (45.5-73.1) % Lymph % (Auto) 23.3 (18.3-44.2) % Prow[place] % (Auto) 9.9 H (2.6-8.5) % Eos % (Auto) 1.5 (0-4.4) % Baso % (Auto) 0.5 (0.2-1.2) % Lymph # (Auto) 1.91 (0.9-3.2) K/mm3 [place] # (Auto) 0.8 H (0.1-0.6) K/mm3 Eos # (Auto) 0.1 (0-0.3) K/mm3 Baso # (Auto) 0.0 (0.0-0.1) K/mm3 Abs Immat Gran (auto) 0.13 H (0.00-0.031) K/mm3 Absolute Neuts (auto) 5.2 (1.3-6.7) K/mm3 Absolute Nucleated RBC 0.000 (0.0-0.012) K/mm3 Nucleated RBC % 0.0 (0.0-0.2) % PT 16.1 H (11.1-14.7) Seconds INR 1.2 APTT 50.3 H (22.3-36.8) Seconds Sodium 135 L (137-145) mmol/L Potassium 5.1 H (3.4-5.0) mmol/L Chloride 102 (98-107) mmol/L Carbon Dioxide 18 L (22-30) mmol/L Anion Gap 15 H (4-12) mmol/L BUN 73 H (9-20) mg/dL Creatinine 3.32 H (0.7-1.3) mg/dL Estim Creat Clear Calc 28 ml/min Estimated GFR 19 L (59 - ) Glucose 346 H (65-110) mg/dL Lactic Acid 2.4 H (0.7-2.0) mmol/L Calcium 9.0 (8.4-10.2) mg/dL Total Bilirubin 1.0 (0.2-1.3) mg/dL AST 45 (17-59) U/L ALT 61 H (6-50) U/L Alkaline Phosphatase 125 (38-126) U/L C-Reactive Protein 17.8 H (<1.0) mg/dL Total Protein 7.0 (6.3-8.2) g/dL Albumin 3.4 L (3.5-5.1) g/dL <Dariusz Prince MD - Last Filed: 10/02/24 20:44> Discharge Plan Discharge Clinical Impression: Fracture of toe, Cellulitis in diabetic foot, Acute on chronic renal failure <Eliana Lamar APRN - Last Filed: 10/02/24 14:09> Patient Disposition: Still a Patient <Eliana Lamar APRN - Last Filed: 10/02/24 14:09> Condition: Stable <Eliana Lamar APRN - Last Filed: 10/02/24 14:09>
--- OUTSIDE RECORDS SUMMARY | 2024-10-02 14:09 | XMS_ITS | Clinical Summary ---
Author Organization [facility] Address [address] [place] [address] Care Team Providers Care Die Mechanic Name Role Phone Adrian Owens MD Primary Care Provider +1- [phone] Walter Andre MD Unavailable Allergies Active Allergy [...] Essential hypertension 01/23/2019 Type 2 diabetes mellitus ([facility]) 01/23 Mixed hyperlipidemia 01/23/2019 Obesity (BMI 35.0-39.9 without comorbidity) 01/2019 Resolved Problems Problem Noted Date Diagnosed Date Resolved Date S/P CABG (coronary artery bypass graft) 01/23/2019 10/16/2019 Overview (01/23/2019): 10/2017 at [facility]. Normal LV function. Dr. Raj Etienne On [...] Most Recently Relevant to Health Maintenance Insurance [facility] Care Teams Die Mechanic Relationship Specialty Start Date End Date Adrian Owens MD [address] [facility] [address] [place] [address] PCP - General FAMILY PRACTICE 12/27/18 Walter nAdre MD [facility] [address] [place] [address] [place] [employer] CARDIOVASCULAR DISEASE 10/17/19
--- OUTSIDE RECORDS SUMMARY | 2024-10-02 14:09 | XMS_ITS | Encounter Summary ---
Author Organization [facility] Facility Care Team Providers Care Pantograph Setter Name Role Phone Adrian Owens MD Primary Care Prov ider Encounter Details Date Type Department Care Team (Latest Contact Info) Description 12/07/2017 Orders Only [facility] CLINCONV ProviderJaime MD [address] [place] [address] Social History Tobacco Use Types Packs/Day Years Used Date Smoking Tobacco: Never Assessed Sex and Gender Information Value Date Recorded Sex Assigned at Not on file Legal Sex Male 6:50 PM MILL MANAGER Gender Identity Not on file Sexual [...] AM CDT Ordered by an unspecified provider. [facility] Provider MD CV CARDIAC SERVICES PROCE DURES Final Result * CARDIOLOGY REPORT (12/07/2017 12:00 AM CDT) Anatomical Region Laterality Modality Other Narrative 12/07/2017 12:00 AM CDT Ordered by an unspecified provider. [facility] Provider CV CARDIAC SERVICES PROCE DURES Final Result * CARDIOLOGY REPORT (12/07/2017 12:00 AM CDT) Anatomical Region Laterality Modality Other Narrative 12/07/2017 12:00 AM CDT Ordered by an unspecified provider. [facility] Provider CV CARDIAC SERVICES PROCE DURES Final Result documented in this encounter Visit Diagnoses Not on filedocumented in this encounter Additional Health Concerns Infection Onset Date Last Indicated Resolved Time COVID: Suspected 09/29/2022 09/29/2022 09/29/2022 8:55 PM MILL MANAGER documented as of this encounter Care Teams Pantograph Setter Relationship Specialty Start Date End Date Adrian Owens MD [address] [place] [address] PCP - General 12/15/20 documented as of this encounter
--- OUTSIDE RECORDS SUMMARY | 2024-10-02 14:09 | XMS_ITS | Referral Summary ---
Author Organization [employer] [facility] Address [address] [place] [address] Care Team Providers Care Technical Aid Name Role Phone Adrian Owens MD Primary Care Provider + Source Comments [facility],non-owned Affiliates and Associated Physician Practices is amultiple site organization consisting of ambulatory clinics and hospital sitesin [place], [place], [place] and [place]. This disclosure is being madepursuant to the Care Everywhere program and may not contain all information available regarding this patient. Last updated 18.[facility] Allergies No known active allergies Medications * [...] PANEL (CALCIUM TOTAL) (03/25/2021 4:40 AM CDT) [facility] Glucose 189(H) 70 - 105 mg/dL 03/25/2021 5:24 AM [facility] Sodium 138 136 - 145 mmol/L 03/25/2021 5:24 AM [facility] Potassium 4.8 3.5 - 5.1 mmol/L 03/25/2021 5:24 AM [facility] Chloride 111(H) 98 - 107 mmol/L 03/25/2021 5:24 AM [facility] CO2 17(L) 23 - 31 mmol/L 03/25/2021 5:24 AM [facility] Calcium 8.7 8.4 - 10.4 mg/dL 03/25/2021 5:24 AM [facility] Anion Gap 10 8 - 18 mmol/L 03/25/2021 5:24 AM [facility] BUN 38(H) 8.4 - 25.7 mg/dL 03/25/2021 5:24 AM [facility] Creatinine 1.64(H) 0.72 - 1.25 mg/dL 03/25/2021 5:24 AM [facility] eGFR by MDRD 43(L) >60 mL/min/1.7 3m2 03/25/2021 5:24 AM [facility] eGFR by MDRD 52(L) >60 mL/min/1.7 3m2 03/25/2021 5:24 AM [facility] Blood BLOOD SPECIMEN / Unknown Lab Venipuncture / Unknown 03/25/2021 4:40 AM CDT 03/25/2021 4:50 AM CDT Edy Brandon MD LAB - CHEMISTRY MONIQUE MILLER [facility] [address] [place] [id number] from Last 3 Months or Most Recently Relevant to Health Maintenance Advance Directives * Full Code (Latest Code Status on File) Date Activated Date Inactivated Comments 03/24/2021 12:27 AM 03/25/2021 6:57 PM Care Teams Technical Aid Relationship Specialty Start Date End Date Adrian Owens MD [address] [place] [id number] PCP - General Family Medicine 03/23/21
--- OUTSIDE RECORDS SUMMARY | 2024-10-02 14:09 | XMS_ITS | Encounter Summary ---
Author Organization [facility] Facility Care Team Providers Care Mold Design Engineer Name Role Phone Adrian Owens MD Primary Care Prov ider Encounter Details Date Type Department Care Team (Latest Contact Info) Description 05/30/2018 Orders Only [facility] CLINCONV ProviderJaime MD [address] [place] [address] Social History Tobacco Use Types Packs/Day Years Used Date Smoking Tobacco: Never Assessed Sex and Gender Information Value Date Recorded Sex Assigned at Not on file Legal Sex Male 6:50 PM CFA Gender Identity Not on file Sexual Orientation Not on file documented as of this encounter Plan of Treatment Not on file documented as of this encounter Procedures Procedure Name Priority Date/Time Associated Diagnosis Comments CARDIOLOGY REPORT 08/08/2018 12: 00 AM CFA documented in this encounter Results * CARDIOLOGY REPORT (08/08/2018 12:00 AM CFA) Anatomical Region Laterality Modality Other Narrative 08/08/2018 12:00 AM CFA Ordered by an unspecified provider. Historical Provider CV CARDIAC SERVICES BENJAMÍN FLOREZ Final Result documented in this encounter Visit Diagnoses Not on filedocumented in this encounter Additional Health Concerns Infection Onset Date Last Indicated Resolved Time COVID: Suspected 09/29/2022 09/29/2022 09/29/2022 8:55 PM CFA documented as of this encounter Care Teams Mold Design Engineer Relationship Specialty Start Date End Date Adrian Owens MD [address] [place] [address] PCP - General 12/15/20 documented as of this encounter
--- OUTSIDE RECORDS SUMMARY | 2024-10-02 14:09 | XMS_ITS | Referral Summary ---
Author Organization [facility] Address [address] [place] [address] Care Team Providers Care Sr. Manager Corporate Communications Name Role Phone Adrian Owens MD Primary Care Prov ider Encounters Date Type Department Care Team Description 08/08/2024 Telephone [facility] Medical [facility] Nephrology at [place] [address] [place] [address] Caprice Gusman MD 07/30/2024 3:45 PM CLIENT SERVICES REPRESENTATIVE Office Visit [facility] Nephrology at [address] [place] [address] Caprice Gusman MD CRD (chronic [...] kidney disease) stage 4, GFR 15-29 ml/min (CMS/[facility]) 01/30/2024 Chest pain, unspecified type 09/29/2022 Coronary artery disease of n ative artery of [place] heart with stable angina pectoris 05/02/2022 Assessment & Plan (10/02/2022 12:27 PM CLIENT SERVICES REPRESENTATIVE): Since admission angina noted. Plan as outlined [...] 05/02/2022 Assessment & Plan (10/02/2022 12:26 PM CLIENT SERVICES REPRESENTATIVE): Pressure is well controlled. Continue propranolol and nitrates Lower extremity edema 05/02/2022 Major depressive disorder wi th single episode, in partial remission 04/11/2022 CKD stage G3b/A1, GFR 30-44 and albumin creatinine ratio <30 mg/g 04/11/2022 Assessment & Plan (10/02/2022 12:25 PM CLIENT SERVICES REPRESENTATIVE): Chem 7 is pending. Nephrology following. Chest pain 04/10/2022 Assessment & Plan (10/02/2022 12:27 PM CLIENT SERVICES REPRESENTATIVE): Chest pain somewhat atypical. Given the underlying [...] left foot, limited to breakdown of skin ([facility]) 03/04/2021 Assessment & Plan (03/04/2021 3:16 PM CDT): Transfer lesion left foot and also left 1st toe amputation healed. No further vascular surgical workup per intervention needed at this time. Patient follow-up on as-needed basis. Osteomyelitis of great toe of left foot ([facility] ) 01/07/2021 Assessment & Plan [...] vascular disease (C MS/HCC) 01/04/2021 Diabetic ketoacidosis ([facility]) 01/04/2021 Mixed hyperlipidemia 01/23/2019 Assessment & Plan (10/02/2022 12:28 PM CLIENT SERVICES REPRESENTATIVE): Continue atorvastatin and the cardiac diet and [...] Diastolic CHF (CMS/HCC) 12/19/2017 Pure hypercholesterolemia 12/07/2017 assisted current use of insulin ([facility]) 12/07 Type 2 diabetes mellitus [...] on file Legal Sex Male 6:50 PM CLIENT SERVICES REPRESENTATIVE Gender Identity Not on file Sexual Orientation Not on file Last Filed Vital Signs Vital Sign Reading Time Taken Comments Blood Pressure 112/61 07/30/2024 3:45 PM CLIENT SERVICES REPRESENTATIVE Pulse 76 07/30/2024 3:45 PM CLIENT SERVICES REPRESENTATIVE Temperature 36.3 C (97.3 F) 07/30/2024 3:45 PM CLIENT SERVICES REPRESENTATIVE Respiratory Rate 17 09/08/2023 8:40 AM CLIENT SERVICES REPRESENTATIVE Oxygen Saturation 97% 09/08/2023 8:40 AM CLIENT SERVICES REPRESENTATIVE Inhaled Oxygen Concentration - - Weight 132 kg (291 lb) 07/30/2024 3:45 PM CLIENT SERVICES REPRESENTATIVE Height 188 cm (6' 2 ) 07/30/2024 3:45 PM CLIENT SERVICES REPRESENTATIVE Body Mass Index 37.36 07/30/2024 3:45 PM CLIENT SERVICES REPRESENTATIVE Plan of Treatment Not on file Procedures Procedure Name Priority Date/Time Associated Diagnosis Comments CBC WITH AUTO DIFFERENTIAL Routine 08/05/2024 8:55 AM CLIENT SERVICES REPRESENTATIVE CRD (chronic renal disease), stage IV (CMS/HCC) (HCC) VITAMIN D 25 HYDROXY Routine 08/05/2024 8:55 AM CLIENT SERVICES REPRESENTATIVE CRD (chronic renal disease), stage IV (CMS/HCC) (HCC) RENAL FUNCTION PANEL Routine 08/05/2024 8:55 AM CLIENT SERVICES REPRESENTATIVE CRD (chronic renal disease), stage IV (CMS/HCC) (HCC) PTH Routine 08/05/2024 8:55 AM CLIENT SERVICES REPRESENTATIVE CRD (chronic renal disease), stage IV (CMS/HCC) (HCC) PROTEIN / CREATININE RATIO, URINE, RANDOM Routine 08/05/2024 8:55 AM CLIENT SERVICES REPRESENTATIVE CRD (chronic renal disease), stage IV (CMS/HCC) (HCC) LIPID PANEL Routine 01/21/2024 9:47 AM CDT Coronary artery disease due to lipid rich plaque Mixed hyperlipidemia HEMOGLOBIN A1C Routine 09/30/2022 8:48 AM CLIENT SERVICES REPRESENTATIVE from Last 3 Months or Most Recently Relevant to Health Maintenance Results * CBC with auto differential (08/05/2024 8:55 AM CLIENT SERVICES REPRESENTATIVE) WBC 9.0 3.8 - 10.8 Thousand/u L [...] [facility] Blood 08/05/2024 8:55 AM CLIENT SERVICES REPRESENTATIVE 08/05/2024 8:56 AM CLIENT SERVICES REPRESENTATIVE Narrative [facility] - 08/06/2024 6:10 AM CLIENT SERVICES REPRESENTATIVE FASTING:NO FASTING: NO Caprice Gusman MD LAB BLOOD ORDERABLES Final Result [facility] [address] [place] [address] * (ABNORMAL) Protein / creatinine ratio, urine, random (08/05/2024 8:55 AM CLIENT SERVICES REPRESENTATIVE) Creatinine, ur 91 20 - 320 mg/dL [facility] Protein/creati nine ratio 462(H) 25 - 148 mg/g creat [facility] Protein/Creati nine Ratio 0.462(H) 0.025 - 0.148 mg/mg creat [facility] Protein, ur, quant 42(H) 5 - 25 mg/dL [facility] Urine 08/05/2024 8:55 AM CLIENT SERVICES REPRESENTATIVE 08/05/2024 8:56 AM CLIENT SERVICES REPRESENTATIVE Narrative [facility] - 08/06/2024 6:10 AM CLIENT SERVICES REPRESENTATIVE FASTING:NO FASTING: NO Result [facility] Caprice Gusman MD LAB URINE ORDERABLES Final Result Performing Organization Address [facility] Co de Phone Number [facility] [address] [place] [address] * Vitamin D 25 hydroxy (08/05/2024 8:55 AM CLIENT SERVICES REPRESENTATIVE) Vitamin D 25-OH 33 30 - 100 ng/mL [facility] Comment: Vitamin D Status 25-OH Vitamin D: Deficiency: <20 ng/mL Insufficiency: 20 - 29 ng/mL Optimal: > or = 30 ng/mL For 25-OH Vitamin D testing on patients on D2-supplementation and patients for whom quantitation of D2 and D3 fractions is required, the [facility](TM) 25-OH VIT D, (D2,D3), LC/MS/MS is recommended: order code 28326 (patients >2yrs). See Note 1 Note 1 For additional information, please refer to http://education.[employer]/faq/XJC111 (This link is being provided for informational/ educational purposes only.) Blood 08/05/2024 8:55 AM CLIENT SERVICES REPRESENTATIVE 08/05/2024 8:56 AM CLIENT SERVICES REPRESENTATIVE Narrative [facility] - 08/06/2024 6:10 AM CLIENT SERVICES REPRESENTATIVE FASTING:NO FASTING: NO Result [facility] Caprice Gusman MD LAB BLOOD ORDERABLES Final Result Performing Organization Address [facility]/ZIP Co de Phone Number [facility] [address] [place] [address] * (ABNORMAL) PTH (08/05/2024 8:55 AM CLIENT SERVICES REPRESENTATIVE) Parathyroid hormone, intact 139(H) 16 - 77 pg/mL [facility] Comment: Interpretive Guide Intact PTH Calcium ------- Normal Parathyroid Normal Normal Hypoparathyroidism Low or Low Normal Low Hyperparathyroidism Primary Normal or High High Secondary High Normal or Low Tertiary High High Non-Parathyroid Hypercalcemia Low or Low Normal High Blood 08/05/2024 8:55 AM CLIENT SERVICES REPRESENTATIVE 08/05/2024 8:56 AM CLIENT SERVICES REPRESENTATIVE Narrative [facility] - 08/06/2024 6:10 AM CLIENT SERVICES REPRESENTATIVE FASTING:NO FASTING: NO Caprice Gusman MD LAB BLOOD ORDERABLES Final Result [facility] [address] [place] [address] * (ABNORMAL) Renal function panel (08/05/2024 8:55 AM CLIENT SERVICES REPRESENTATIVE) Glucose 135 65 - 139 mg/dL [facility] [...] [facility] Blood 08/05/2024 8:55 AM CLIENT SERVICES REPRESENTATIVE 08/05/2024 8:56 AM CLIENT SERVICES REPRESENTATIVE Narrative [facility] - 08/06/2024 6:10 AM CLIENT SERVICES REPRESENTATIVE FASTING:NO FASTING: NO us Caprice Gusman MD LAB BLOOD ORDERABLES Final Result Performing Organization Address City/[facility]/ZIP Co de Phone Number [facility] [address] [address] * (ABNORMAL) Lipid panel (01/21/2024 9:47 AM CDT) Pathologist [facility] Cholesterol 151 <200 mg/dL [facility] [...] LDL-C. Carl SS et al. LETTY. 2013;310(19): 9536-0064 (http://education.[employer]/faq/OPL595) Chol/HDL ratio 3.8 <5.0 (calc) [facility] [...] BLOOD ORDERABLES Final Result Performing Organization Address City/[facility]/ZIP Co de Phone Number [facility] [address] [address] * (ABNORMAL) Hemoglobin A1c (09/30/2022 8:48 AM CLIENT SERVICES REPRESENTATIVE) Hgb A1C 8.1(H) 4.0 - 5.6 % [facility] Estimated Average Glucose 186 mg/dL [facility] Comment: The ADA recommends reporting an estimated Average Glucose (eAG) with all Hemoglobin A1c results using the equation derived from a study of 507 normal and diabetic adults. Minority populations were underrepresented and children were not included. (Diabetes Care 31:8286-5684, 2008). The eAG is not equivalent to a fasting glucose. Blood 09/30/2022 8:48 AM CLIENT SERVICES REPRESENTATIVE 09/30/2022 10:00 AM CLIENT SERVICES REPRESENTATIVE Honey Mitchell MD LAB BLOOD ORDERABL ES Final Result [facility] [address] Department [place] [address] from Last 3 Months or Most Recently Relevant to Health Maintenance Insurance [facility] Advance Directives For more information, please contact: [phone] * Full Code (Latest Code Status on File) Date Activated Date Inactivated Comments 09/30/2022 3:26 AM 10/02/2022 9:08 PM * Full Code Date Activated Date Inactivated Comments 04/10/2022 11:17 PM 04/11/2022 10:51 PM Care Teams Sr. Manager Corporate Communications Relationship Specialty Start Date End Date Adrian Owens MD [address] [place] [address] PCP - General 12/15/20
--- OUTSIDE RECORDS SUMMARY | 2024-10-02 14:09 | XMS_ITS | Patient Health Summary ---
Author Organization [facility] [place] Address [address] [place] [address] Care Team Providers Care Piano Mechanic Name Role Phone Adrian Owens MD Primary Care Provider + Note from [facility],non-owned Affiliates and Associated Physician Practices is amultiple site organization consisting of ambulatory clinics and hospital sitesin [place], [place], [place] and [place]. This disclosure is being madepursuant to the Care Everywhere program and may not contain all information available regarding this patient. Last updated 18.[facility] [place] Allergies No known active allergies Medications * [...] Han MD - 04/28/2021 12:[address] [facility] Electroencephalogram Report PATIENT NAME: VICTORINO COBOS MR#: [id number] ROOM#: CSN: [id number] ADMISSION DATE: 04/28/2021 SEX: M : 1955 [...] correlationis suggested. DICTATOR: JOHN HAN M.D. MP/MODL #:[id number] cc: John Han M.D. John Han MD NEUROLOGY ORDERABLES Performing Organization Address [facility] Co de Phone Number [facility] * CARDIAC EKG ORDER (03/28/2021 9:13 PM CDT) Only the most recent of3 resultswithin the time period is included. Narrative 03/28/2021 9:13 PM CDT Ordered by an unspecified provider. Scanned Document CARDIAC SERVICES ORD ERABLES * (ABNORMAL) GLUCOSE - POINT OF CARE (03/25/2021 4:31 PM CDT) Only the most recent of7 resultswithin the time period is included. Pathologist [facility] Glucose WB/POC 192(H) 70 - 106 mg/dL 03/26/2021 11:07 AM CDT [facility] Specimen Type Arterial 03/26/2021 11:07 AM CDT [facility] Blood BLOOD SPECIMEN / Unknown 03/25/2021 4:31 PM CDT 03/26/2021 11:07 AM CDT Yves Muñoz MD LAB - POINT OF CARE ORDERABLES Performing Organization Address [facility] Co de Phone Number [facility] [address] [place] [address] * (ABNORMAL) CBC W/O DIFFERENTIAL (03/25/2021 4:40 AM CDT) Only the most recent of2 resultswithin the time period is included. WBC 8.3 4.4 - 10.7 x10E9/L 03/25/2021 4:59 AM CDT [facility] RBC 3.69(L) 3.80 - 5.40 x10E12/L 03/25/2021 4:59 AM CDT [facility] Hemoglobin 11.0(L) 12.0 - 17.6 gm/dL 03/25/2021 4:59 AM CDT [facility] Hematocrit 34.2(L) 35.2 - 51.7 % 03/25/2021 4:59 AM CDT [facility] MCV 92.7 80.7 - 98.3 fl 03/25/2021 4:59 AM CDT [facility] MCH 29.8 26.7 - 34.0 pg 03/25/2021 4:59 AM CDT [facility] MCHC 32.2 30.8 - 35.9 gm/dL 03/25/2021 4:59 AM CDT [facility] Platelet Count 236 153 - 416 x10E9/L 03/25/2021 4:59 AM CDT [facility] RDW-CV 14.9 12.1 - 14.9 % 03/25/2021 4:59 AM [facility] MPV 10.4 9.4 - 12.9 fl 03/25/2021 4:59 AM [facility] Blood BLOOD SPECIMEN / Unknown Lab Venipuncture / Unknown 03/25/2021 4:40 AM CDT 03/25/2021 4:51 AM CDT Edy Brandon MD LAB - HEMATOLOGY ORD ERABLES [facility] [address] [place] [address] * (ABNORMAL) BASIC METABOLIC PANEL (CALCIUM TOTAL) (03/25/2021 4:40 AM CDT) Only the most recent of3 resultswithin the time period is included. Glucose 189(H) 70 - 105 mg/dL 03/25/2021 5:24 AM CDT [facility] Sodium 138 136 - 145 mmol/L 03/25/2021 5:24 AM CDT [facility] Potassium 4.8 3.5 - 5.1 mmol/L 03/25/2021 5:24 AM CDT [facility] Chloride 111(H) 98 - 107 mmol/L 03/25/2021 5:24 AM CDT [facility] CO2 17(L) 23 - 31 mmol/L 03/25/2021 5:24 AM CDT [facility] Calcium 8.7 8.4 - 10.4 mg/dL 03/25/2021 5:24 AM CDT [facility] Anion Gap 10 8 - 18 mmol/L 03/25/2021 5:24 AM CDT [facility] BUN 38(H) 8.4 - 25.7 mg/dL 03/25/2021 5:24 AM CDT [facility] Creatinine 1.64(H) 0.72 - 1.25 mg/dL 03/25/2021 5:24 AM CDT [facility] eGFR by MDRD 43(L) >60 mL/min/1.7 3m2 03/25/2021 5:24 AM CDT [facility] eGFR by MDRD 52(L) >60 mL/min/1.7 3m2 03/25/2021 5:24 AM CDT [facility] Blood BLOOD SPECIMEN / Unknown Lab Venipuncture / Unknown 03/25/2021 4:40 AM CDT 03/25/2021 4:50 AM CDT Edy Brandon MD LAB - CHEMISTRY MONIQUE MILLER [facility] Organization Address City/State/ZIP Co de Phone Number [facility] [address] [place] [address] * MAGNESIUM BLOOD (03/25/2021 4:40 AM CDT) [facility] Magnesium 2.0 1.6 - 2.6 mg/dL 03/25/2021 5:24 AM CDT [facility] Blood BLOOD SPECIMEN / Unknown Lab Venipuncture / Unknown 03/25/2021 4:40 AM CDT 03/25/2021 4:50 AM CDT Edy Brandon MD LAB - CHEMISTRY MONIQUE MILLER [facility] [address] [place] [address] * VITAMIN B12 (03/24/2021 1:54 PM CDT) Vitamin B12 275 213 - 816 pg/mL 03/24/2021 2:51 PM CDT [facility] Blood BLOOD SPECIMEN / Unknown Lab Venipuncture / Unknown 03/24/2021 1:54 PM CDT 03/24/2021 2:03 PM CDT Edy Brandon MD LAB - CHEMISTRY MONIQUE MILLER Performing Organization Address [facility]/ZIP Co de Phone Number [facility] [address] [place] [address] * MRI BRAIN WO CONTRAST (03/24/2021 1:48 [...] - 5.6 % 03/24/2021 5:21 AM T [facility] Estimated Average Glucose 169 mg/dL 03/24/2021 5:21 AM [facility] Blood BLOOD SPECIMEN / Unknown Lab Venipuncture / Unknown 03/24/2021 4:50 AM CDT 03/24/2021 5:06 AM CDT [facility] - 03/24/2021 5:21 AM CDT The following cutoff levels are recommended by [employer]. A1c > 6.5% : considered [...] Organization Address City/State/ZIP Co de Phone Number [facility] [address] [place] [id number] * (ABNORMAL) LIPID PROFILE (03/24/2021 4:50 AM CDT) [facility] Cholesterol 172 <200 mg/dL 03/24/2021 5:40 AM CDT [facility] Triglycerides 255(H) <150 mg/dL 03/24/2021 5:40 AM CDT [facility] HDL Cholesterol 33(L) >40 mg/dL 5:40 AM CDT [facility] LDL Calculated 88 <130 mg/dL 03/24/2021 5:40 AM CDT [facility] VLDL Calculated 51(H) <=30 mg/dL 5:40 AM CDT [facility] Chol HDL Ratio 5.2(H) <4.5 03/24/2021 5:40 AM CDT [facility] LDL/HDL Ratio 2.7 <5.0 03/24/2021 5:40 AM [facility] Blood BLOOD SPECIMEN / Unknown Lab Venipuncture / Unknown 03/24/2021 4:50 AM CDT 03/24/2021 5:05 AM CDT Sharon Flores MD LAB - CHEMISTRY MONIQUE MILLER [facility] [address] [place], [place] [id number] * (ABNORMAL) URINALYSIS REFLEX TO MICROSCOPIC NO CULTURE (03/24/2021 1:45 AM CDT) Color UA Red(A) Straw, Yellow 03/24/2021 1:51 AM [facility] Clarity UA Slt Cloudy(A) Clear 03/24/2021 1:51 AM [facility] Glucose UA 2+(A) Negative 03/24/2021 1:51 AM [facility] Bilirubin UA Negative Negative 03/24/2021 1:51 AM [facility] Ketone UA Negative Negative 03/24/2021 1:51 AM [facility] Specific [place] UA 1.012 1.005 - 1.030 03/24/2021 1:51 AM [facility] Blood UA 3+(A) Negative 03/24/2021 1:51 AM [facility] pH UA 6.0 5.0 - 8.0 pH 03/24/2021 1:51 AM [facility] Protein UA 3+(A) Negative 03/24/2021 1:51 AM [facility] Urobilinogen UA Negative Negative mg/dL 03/24/2021 1:51 AM [facility] Nitrite UA Negative Negative 03/24/2021 1:51 AM [facility] Leukocyte UA Negative Negative 03/24/2021 1:51 AM [facility] Urine Microscopy Urine microscopy to follow 03/24/2021 1:51 AM [facility] Urine URINE SPECIMEN OBTAINED VIA [employer]WELL[employer] URINARY CATHETER / Unknown Collection / Unknown 03/24/2021 1:45 AM CDT 03/24/2021 1:45 AM CDT Narrative [facility] - 03/24/2021 1:51 AM CDT Sharon Flores MD LAB - URINALYSIS ORD ERABLES Performing Organization Address City/[facility]/ZIP Co de Phone Number [facility] [address] [place] [address] * (ABNORMAL) URINE MICROSCOPIC ONLY (03/24/2021 1:45 AM CDT) RBC UA >100(A) None Seen, 0-2, 3-5 # /hpf 03/24/2021 1:56 AM CDT [facility] WBC UA 0-5 None Seen, 0-5 # /hpf 03/24/2021 1:56 AM CDT [facility] Bacteria UA None Seen None Seen 03/24/2021 1:56 AM CDT [facility] Squamous Epithelial Cells None Seen None Seen, 0-2, 3-5 /hpf 03/24/2021 1:56 AM CDT [facility] Urine URINE SPECIMEN OBTAINED VIA [employer]WELL[employer] URINARY CATHETER / Unknown Collection / Unknown 03/24/2021 1:45 AM CDT 03/24/2021 1:45 AM CDT Narrative [facility] - 03/24/2021 1:56 AM CDT Sharon Flores MD LAB - URINALYSIS ORD ERABLES [facility] [address] [place] [address] * TROPONIN I (03/24/2021 1:30 AM CDT) Troponin I <0.010 <0.038 ng/mL 03/24/2021 1:49 AM CDT [facility] Blood BLOOD SPECIMEN / Unknown Venipuncture / Unknown 03/24/2021 1:30 AM CDT 03/24/2021 1:25 AM CDT Sharon Flores MD LAB - CHEMISTRY MONIQUE MILLER [facility] [address] [place] [address] * (ABNORMAL) B-TYPE NATRIURETIC PEPTIDE (03/24/2021 1:30 AM CDT) BNP 155(H) <=100 pg/mL 03/24/2021 2:04 AM CDT [facility] Blood BLOOD SPECIMEN / Unknown Venipuncture / Unknown 03/24/2021 1:30 AM CDT 03/24/2021 1:25 AM CDT Sharon Flores MD LAB - CHEMISTRY MONIQUE MILLER Performing Organization Address City/[facility]/ZIP Co de Phone Number [facility] [address] [place] [address] * LACTIC ACID BLOOD (03/24/2021 1:30 AM CDT) Lactic Acid 0.9 0.5 - 2.2 mmol/L 03/24/2021 1:42 AM CDT [facility] Blood BLOOD SPECIMEN / Unknown Venipuncture / Unknown 03/24/2021 1:30 AM CDT 03/24/2021 1:25 AM CDT Sharon Flores MD LAB - CHEMISTRY MONIQUE MILLER [facility] [address] [place] [address] Care Teams Piano Mechanic Relationship Specialty Start Date End Date Adrian Owens MD [address] [place] [id number] PCP - General Family Medicine 03/23/21
--- OUTSIDE RECORDS SUMMARY | 2024-10-02 14:09 | XMS_ITS | Encounter Summary ---
Author Organization [facility] Facility Care Team Providers Care Hockey Instructor Name Role Phone Adrian Owens MD Primary Care Prov ider Encounter Details Date Type Department Care Team (Latest Contact Info) Description 03/14/2018 Orders Only [facility] CLINCONV ProviderJaime MD [address] [place] [address] Social History Tobacco Use Types Packs/Day Years Used Date Smoking Tobacco: Never Assessed Sex and Gender Information Value Date Recorded Sex Assigned at Not on file Legal Sex Male 6:50 PM BRANCH RENTAL MANAGER Gender Identity Not on file Sexual [...] COVID: Suspected 09/29/2022 09/29/2022 09/29/2022 8:55 PM BRANCH RENTAL MANAGER documented as of this encounter Care Teams Hockey Instructor Relationship Specialty Start Date End Date Adrian Owens MD [address] [place] [address] PCP - General 12/15/20 documented as of this encounter
--- OUTSIDE RECORDS SUMMARY | 2024-10-02 14:09 | XMS_ITS | Continuity of Care Document ---
Author Organization [facility] Address [address] [place] [address] Phone Care Team Providers Care Processor Solid Propellant Name Role Phone Conversion MD, Doctor Unavailable [...] Diagnoses Date Provider Providers Copied on Encounter [facility], [address], [place], [place], [address] , tel: [phone] Conversion Department No Information 1 Conversion Doctor. [facility], [place], [address], . [facility], [address], [place], [place], [address] , tel: [phone] [facility] DMII WO CMP UNCNTRLDOBESITY NOSBENIGN HYPERTENSION 5 Hos[address] Erik. [address] , [address], [place], [place], [address]. tel: [phone] [facility], [address], [place], [place], [address] , tel: [phone] [facility] MIXED HYPERLIPIDEMIALO NG-TERM USE MEDS NECHEMATURIA 200 [address] Erik[address] [facility], [address], [place], [place], [address]. tel: [phone] [facility], [address], [place], [place], [address] , tel: [phone] [facility] NEPHRITIS NOS IN OTH DIS 4 Hoskins Erik. [address], [place], [place], [address]. tel:[phone] [facility], [address], [place], [place], [address] , tel: [phone] [facility] ACUTE SINUSITIS NOS 200 [address] Erik. [address] [facility] [address], [address], [place], [place], [address]. tel: [phone] [facility], [address], [place], [place], [address] , [place] tel: [phone] [facility] VACCIN FOR INFLUENZA 3-200 3 Hoskins Erik. [address] [facility] [address], [address], [place], [place], [address]. tel: [phone] [facility], [address], [place], [place], [address] , [place] tel: [phone] [facility] CELLULITIS OF LEG 3-200 3 Hoskins Erik. [address] [facility] [address], [address], [place], [place], [address]. tel: [phone] [facility], [address], [place], [place], [address] , [place] tel:[phone] [facility] PROTEINURIA May-0 6-200 3 Hos[address] Erik. [address] [facility] [address], [address], [place], [place], [address]. tel: [phone] [facility], [address], [place], [place], [address] , [place] tel: [phone] [facility] CARPAL TUNNEL SYNDROME Dec- 0-200 1 Hoskins Erik. [address] [facility], [address], [place], [place], [address]. tel: [phone] [facility], [address], [place], [place], [address] , [place] tel: [phone] [facility] ALLERGIC RHINITIS NOS 7-[address] [facility], [place], [address], [place]. [facility], [address], [place], [place], [address] , [place] tel: [phone] [facility] PAIN IN LIMB Oct-2 5-200 0 Hoskins Erik. [address] [facility] [address], [address], [place], [place], [address]. tel: [phone] [facility], [address], [place], [place], [address] , tel: [phone] [facility] NEUROPATHY IN DIABETES 4-200 0 Hoskins Erik. [address] , [address], [place], [place], [address]. tel:[phone] [facility], [address], [place], [place], [address] , tel: [phone] [facility] BACKACHE NOS 8-199 9 Hoskins Erik. [address] , [address], [place], [place], [address]. tel:[phone] [facility], [address], [place], [place], [address] , tel: [phone] [facility] MULTIPLE CONTUSION LEGJOINT PAIN-L/LEGCONTUS ION OF KNEE 4-199 9 Hoskins Erik. [address] , [address], [place], [place], [address]. tel:[phone] Family History Family Member Type Diagnosis Age At Onset No Information Immunizations Vaccine Date Status Comments 84621 - Influenza administered Source: [place] Unspecified 36296 - Influenza administered Source: [place] Unspecified [...]
--- OUTSIDE RECORDS SUMMARY | 2024-10-02 14:09 | XMS_ITS | Encounter Summary ---
Author Organization [facility] Address [address] [place] [address] Care Team Providers Care Technical Producer Name Role Phone Adrian Owens MD Primary Care Provider [phone] Chepe Luna MD Unavailable [phone] Walter Andre MD Unavailable Encounter Details Date Type Department Care Team (Late st Contact Info) Description 01/24/2019 Abstract [facility], [address] [address] [place] At[place] Social History [...] 12.2 HCT 36.2 PLT 253 11/11/2017 us [facility] Abstract LAB-OUTSIDE/ABSTRACTED Final Result * BASIC METABOLIC PANEL (11/11/2017) Pathologist [facility] SODIUM S/P/B 138 POTASSIUM S/P/B 4.5 CO2 25 CHLORIDE S/P/B 100 GLUCOSE 220 mg/dL CALCIUM S/P/B 9.1 BUN 30 CREATININE S/P/B 0.8 0.7 - 1.3 EGFR NON-AFR. AMER. >90 <=90 11/11/2017 us [facility] LABORATORY Edited Resul t - Final * (ABNORMAL) HEPATIC FUNCTION PANEL (11/09/2017) Pathologist [facility] ALBUMIN S/P/B 2.8(A) 3.5 - 5.0 ALKALINE PHOSPHATASE S/P/B 552 ALT 11 AST 15 BILIRUBIN TOTAL S/P/B 0.4 TOTAL PROTEIN S/P/B 6.8 GLOBULIN 3.0 11/09/2017 us [facility] LABORATORY Edited Resul t - Final * PROTIME (OUTSIDE LAB) (11/06/2017) PROTIME 12.4 INR 0.93 11/06/2017 us Doc [facility] Abstract LAB-OUTSIDE/ABSTRACTED Final Result documented in this encounter Visit Diagnoses Not on filedocumented in this encounter Care Teams Technical Producer Relationship Specialty Start Date End Date Adrian Owens MD [address] [address] PCP - General FAMILY PRACTICE 12/27/18 Chepe Luna MD [address] [address] Sophy Mucking Machine Operator CARDIOVASCULAR DISEASE 01/16/19 06/10/19 Walter Andre MD [facility] [address] [place] [address] Sophy Mucking Machine Operator CARDIOVASCULAR DISEASE 10/17/19 documented as of this encounter
--- OUTSIDE RECORDS SUMMARY | 2024-10-02 14:09 | XMS_ITS | Clinical Summary ---
Author Organization [facility] Office Center Address [address] [place] [address] Care Team Providers Care Crust Sorter Name Role Phone Adrian Owens MD Primary [...] artery disease of n ative artery of [place] heart with stable angina pectoris 05/02/2022 Assessment & Plan (10/02/2022 12:27 PM CAREER SPECIALIST): Since admission angina noted. Plan as outlined [...] 05/02/2022 Assessment & Plan (10/02/2022 12:26 PM CAREER SPECIALIST): Pressure is well controlled. Continue propranolol and nitrates Lower extremity edema 05/02/2022 Major depressive disorder wi th single episode, in partial remission 04/11/2022 CKD stage G3b/A1, GFR 30-44 and albumin creatinine ratio <30 mg/g 04/11/2022 Assessment & Plan (10/02/2022 12:25 PM CAREER SPECIALIST): Chem 7 is pending. Nephrology following. Chest pain 04/10/2022 Assessment & Plan (10/02/2022 12:27 PM CAREER SPECIALIST): Chest pain somewhat atypical. 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 insulin (CMS/HCC) 12/07 Type 2 diabetes mellitus wit h other circulatory complications 12/07/2017 Encounters Date Type Department Care Team Description 08/08/2024 Telephone [facility] Nephrology at [address] [place] [phone] Caprice Gusman MD 07/30/2024 3:45 PM CAREER SPECIALIST Office Visit [facility] Nephrology at [place] [id number] [facility] [address] [place] [phone] Caprice Gusman MD CRD (chronic renal disease), [...] on file Legal Sex Male 6:50 PM CAREER SPECIALIST Gender Identity Not on file Sexual Orientation Not on file Obstetrics History Last Filed Vital Signs Vital Sign Reading Time Taken Comments Blood Pressure 112/61 07/30/2024 3:45 PM CAREER SPECIALIST Pulse 76 07/30/2024 3:45 PM CAREER SPECIALIST Temperature 36.3 C (97.3 F) 07/30/2024 3:45 PM CAREER SPECIALIST Respiratory Rate 17 09/08/2023 8:40 AM CAREER SPECIALIST Oxygen Saturation 97% 09/08/2023 8:40 AM CAREER SPECIALIST Inhaled Oxygen Concentration - - Weight 132 kg (291 lb) 07/30/2024 3:45 PM CAREER SPECIALIST Height 188 cm (6' 2 ) 07/30/2024 3:45 PM CAREER SPECIALIST Body Mass Index 37.36 07/30/2024 3:45 PM CAREER SPECIALIST Plan of Treatment Health Maintenance Due Date [...] WITH AUTO DIFFERENTIAL Routine 08/05/2024 8:55 AM CAREER SPECIALIST CRD (chronic renal disease), stage IV (CMS/HCC) (HCC) VITAMIN D 25 HYDROXY Routine 08/05/2024 8:55 AM CAREER SPECIALIST CRD (chronic renal disease), stage IV (CMS/HCC) (HCC) RENAL FUNCTION PANEL Routine 08/05/2024 8:55 AM CAREER SPECIALIST CRD (chronic renal disease), stage IV (CMS/HCC) (HCC) PTH Routine 08/05/2024 8:55 AM CAREER SPECIALIST CRD (chronic renal disease), stage IV (CMS/HCC) (HCC) PROTEIN / CREATININE RATIO, URINE, RANDOM Routine 08/05/2024 8:55 AM CAREER SPECIALIST CRD (chronic renal disease), stage IV (CMS/HCC) (HCC) LIPID PANEL Routine 01/21/2024 9:47 AM CDT Coronary artery disease due to lipid rich plaque Mixed hyperlipidemia HEMOGLOBIN A1C Routine 09/30/2022 8:48 AM CAREER SPECIALIST from Last 3 Months or Most Recently Relevant to Health Maintenance Results * CBC with auto differential (08/05/2024 8:55 AM CAREER SPECIALIST) Pathologist [facility] WBC 9.0 3.8 - 10.8 Thousand/u L [...] [facility] Blood 08/05/2024 8:55 AM CAREER SPECIALIST 08/05/2024 8:56 AM CAREER SPECIALIST Narrative [facility] - 08/06/2024 6:10 AM CAREER SPECIALIST FASTING:NO FASTING: NO Caprice Gusman MD LAB BLOOD ORDERABLES Final Result [facility] [address] [place] [address] * (ABNORMAL) Protein / creatinine ratio, urine, random (08/05/2024 8:55 AM CAREER SPECIALIST) Creatinine, ur 91 20 - 320 mg/dL [facility] Protein/creati nine ratio 462(H) 25 - 148 mg/g creat [facility] Protein/Creati nine Ratio 0.462(H) 0.025 - 0.148 mg/mg creat [facility] Protein, ur, quant 42(H) 5 - 25 mg/dL [facility] Urine 08/05/2024 8:55 AM CAREER SPECIALIST 08/05/2024 8:56 AM CAREER SPECIALIST Narrative [facility] - 08/06/2024 6:10 AM CAREER SPECIALIST FASTING:NO FASTING: NO us Caprice Gusman MD LAB URINE ORDERABLES Final Result Performing Organization Address [facility] Co de Phone Number [facility] [address] [place] [address] * Vitamin D 25 hydroxy (08/05/2024 8:55 AM CAREER SPECIALIST) Vitamin D 25-OH 33 30 - 100 ng/mL [facility] Comment: Vitamin D Status 25-OH Vitamin D: Deficiency: <20 ng/mL Insufficiency: 20 - 29 ng/mL Optimal: > or = 30 ng/mL For 25-OH Vitamin D testing on patients on D2-supplementation and patients for whom quantitation of D2 and D3 fractions is required, the QuestAssureD(TM) 25-OH VIT D, (D2,D3), LC/MS/MS is recommended: order code 69865 (patients >2yrs). See Note 1 Note 1 For additional information, please refer to http://education.[employer]/faq/MQO087 (This link is being provided for informational/ educational purposes only.) Blood 08/05/2024 8:55 AM CAREER SPECIALIST 08/05/2024 8:56 AM CAREER SPECIALIST Narrative [facility] - 08/06/2024 6:10 AM CAREER SPECIALIST FASTING:NO FASTING: NO Caprice Gusman MD LAB BLOOD ORDERABLES Final Result Performing Organization Address [facility] de Phone Number [facility] [address] [place] [address] * (ABNORMAL) PTH (08/05/2024 8:55 AM CAREER SPECIALIST) Parathyroid hormone, intact 139(H) 16 - 77 pg/mL [facility] Comment: Interpretive Guide Intact PTH Calcium ------- Normal Parathyroid Normal Normal Hypoparathyroidism Low or Low Normal Low Hyperparathyroidism Primary Normal or High High Secondary High Normal or Low Tertiary High High Non-Parathyroid Hypercalcemia Low or Low Normal High Blood 08/05/2024 8:55 AM CAREER SPECIALIST 08/05/2024 8:56 AM CAREER SPECIALIST Narrative [facility] - 08/06/2024 6:10 AM CAREER SPECIALIST FASTING:NO FASTING: NO Caprice Gusman MD LAB BLOOD ORDERABLES Final Result Performing Organization Address City/[facility]/ZIP Co de Phone Number [facility] [address] [phone] * (ABNORMAL) Renal function panel (08/05/2024 8:55 AM CAREER SPECIALIST) Pathologist [facility] Glucose 135 65 - 139 mg/dL [facility] [...] [facility] Blood 08/05/2024 8:55 AM CAREER SPECIALIST 08/05/2024 8:56 AM CAREER SPECIALIST Narrative [facility] - 08/06/2024 6:10 AM CAREER SPECIALIST FASTING:NO FASTING: NO Caprice Gusman MD LAB BLOOD ORDERABLES Final Result Performing Organization Address City/[facility]/ZIP Co de Phone Number [facility] [address] [phone] * (ABNORMAL) Lipid panel (01/21/2024 9:47 AM [...] LDL-C. Carl SMITH et al. LETTY. 2013;310(19): 5822-6932 (http://education.[employer]/faq/RAC856) Chol/HDL ratio 3.8 <5.0 (calc) [facility] [...] LAB BLOOD ORDERABLES Final Result [place] [address] [address] * (ABNORMAL) Hemoglobin A1c (09/30/2022 8:48 AM CAREER SPECIALIST) Hgb A1C 8.1(H) 4.0 - 5.6 % LEWIS CLARK Estimated Average Glucose 186 mg/dL LEWIS CLARK Comment: The ADA recommends reporting an estimated Average Glucose (eAG) with all Hemoglobin A1c results using the equation derived from a study of 507 normal and diabetic adults. Minority populations were underrepresented and children were not included. (Diabetes Care 31:4618-1217, 2008). The eAG is not equivalent to a fasting glucose. Blood 09/30/2022 8:48 AM CAREER SPECIALIST 09/30/2022 10:00 AM CAREER SPECIALIST Honey Mitchell MD LAB BLOOD ORDERABL ES Final Result [address] [facility] Department [place] [address] from Last 3 Months or Most Recently Relevant to Health Maintenance Insurance [facility] Advance Directives For more information, please contact: [phone] * Full Code (Latest Code Status on File) Date Activated Date Inactivated Comments 09/30/2022 3:26 AM 10/02/2022 9:08 PM * Full Code Date Activated Date Inactivated Comments 04/10/2022 11:17 PM 04/11/2022 10:51 PM Care Teams Crust Sorter Relationship Specialty Start Date End Date Adrian Owens MD [address] [place] [address] PCP - General 12/15/20
--- OUTSIDE RECORDS SUMMARY | 2024-10-02 14:09 | XMS_ITS | Clinical Summary ---
Author Organization [employer] Address [address] [place] [address] Care Team Providers Care Screen Printing Machine Loader Unloader Name Role Phone Adrian Owens MD Primary Care Provider + Source Comments [employer],non-owned Affiliates and Associated Physician Practices is amultiple site organization consisting of ambulatory clinics and hospital sitesin [place], [place], [place] and [place]. This disclosure is being madepursuant to the Care Everywhere program and may not contain all information available regarding this patient. Last updated [employer] Allergies No known active allergies Medications * [...] mg/dL 03/25/2021 5:24 AM CDT [facility] Sodium 138 136 - 145 mmol/L 03/25/2021 5:24 AM CDT [facility] Potassium 4.8 3.5 - 5.1 mmol/L 03/25/2021 5:[facility] Chloride 111(H) 98 - 107 mmol/L 03/25/2021 5:24 [facility] CO2 17(L) 23 - 31 mmol/L 03/25/2021 5:24 [facility] Calcium 8.7 8.4 - 10.4 mg/dL 03/25/2021 5:24 AM CDT [facility] Anion Gap 10 8 - 18 mmol/L 03/25/2021 5:24 AM CDT [facility] BUN 38(H) 8.4 - 25.7 mg/dL 03/25/2021 5:24 AM CDT [facility] Creatinine 1.64(H) 0.72 - 1.25 mg/dL 03/25/2021 5:24 AM CDT [facility] eGFR by MDRD 43(L) >60 mL/min/1.7 3m2 03/25/2021 5:24 AM CDT [facility] eGFR by MDRD 52(L) >60 mL/min/1.7 3m2 03/25/2021 5:24 AM CDT [facility] Blood BLOOD SPECIMEN / Unknown Lab Venipuncture / Unknown 03/25/2021 4:40 AM CDT 03/25/2021 4:50 AM CDT Edy Brandon MD LAB - CHEMISTRY MONIQUE MILLER [facility] [address] [place] [address] from Last 3 Months or Most Recently Relevant to Health Maintenance Advance Directives * Full Code (Latest Code Status on File) Date Activated Date Inactivated Comments 03/24/2021 12:27 AM 03/25/2021 6:57 PM Care Teams Screen Printing Machine Loader Unloader Relationship Specialty Start Date End Date Adrian Owens MD [address] [address] PCP - General Family Medicine 03/23/21
[2024-10-02 15:10] LABS: Basophils Percent Auto 0.5 % (0.2-1.2); Eosinophils Absolute Auto 0.1 K/mm3 (0-0.3); Eosinophils Percent Auto 1.5 % (0-4.4); Hematocrit 34.2 % (42.0-52.0); Hemoglobin 10.9 g/dL (14.0-18.0); Immature Granulocyte Absolute 0.13 K/mm3 (0.00-0.031); Immature Granulocyte Percent A 1.6 % (0-0.5); Lymphocytes Absolute Auto 1.91 K/mm3 (0.9-3.2); Lymphocytes Percent Auto 23.3 % (18.3-44.2); Mean Corpuscular HGB Conc 31.9 g/dl (32-36); Mean Corpuscular Hemoglobin 30.4 pg (26-34); Mean Corpuscular Volume 95.3 fl (80-100); Mean Platelet Volume 10.5 fl (7.4-10.4); Monocytes Absolute Auto 0.8 K/mm3 (0.1-0.6); Monocytes Percent Auto 9.9 % (2.6-8.5); Neutrophils Absolute Auto 5.2 K/mm3 (1.3-6.7); Neutrophils Percent Auto 63.2 % (45.5-73.1); Platelet Count Result 482 k/mm3 (150-375); Red Blood Count 3.59 M/mm3 (4.6-6.20); Red Cell Distribution Width 13.8 % (11.5-14.5); White Blood Count 8.2 K/mm3 (4.5-10.0)
[2024-10-02 15:13] LABS: INR 1.2; Prothrombin Time 16.1 Seconds (11.1-14.7)
[2024-10-02 15:14] LABS: Lactic Acid Reflex 2.4 mmol/L (0.7-2.0); Partial Thromboplastin Time 50.3 Seconds (22.3-36.8)
[2024-10-02 15:37] LABS: Alanine Aminotransferase 61 U/L (6-50); Albumin Level 3.4 g/dL (3.5-5.1); Alkaline Phosphatase 125 U/L (38-126); Anion Gap 15 mmol/L (4-12); Aspartate Amino Transferase 45 U/L (17-59); Blood Urea Nitrogen 73 mg/dL (9-20); CRP 17.8 mg/dL (<1.0); Carbon Dioxide 18 mmol/L (22-30); Chloride 102 mmol/L (98-107); Estimated CRCL calculation 28 ml/min; Estimated Glomerular Filt Rate 19; Glucose 346 mg/dL (65-110); Potassium 5.1 mmol/L (3.4-5.0); Sodium 135 mmol/L (137-145)
--- NOTE | 2024-10-02 17:24 | P.HP_ITS ---
H&P: HPI History of Present Illness Date/Time: 10/02/24 17:24 Chief Complaint: Toe pain and discoloration Narrative: 69-year-old male past medical disease of CKD stage 3 diastolic dysfunction, diabetes type 2 and CAD presents the hospital with acute toe pain and discoloration. Patient states about a week ago he got his foot caught under an area rug and scraped up the top of his right big toe. He states that he had his toenails surgically removed several years ago due to being severely ingrown and was well healed. Patient states that he went to his PCP this morning because his foot was turning red and he was afraid that he had cellulitis. With PCP saw his foot he directed him to go to the emergency room. Patient was started on antibiotics in the emergency room. Review of Systems Review of Systems: 12 systems were reviewed and are negativ e except for as per HPI. [facility] Past Medical History Medical History Gastro-esophageal reflux disease without esophagitis Chronic kidney disease, stage 3b Major depressive disorder, recurrent, mild Diastolic dysfunction (03/2022) Coronary artery disease with angina pectoris Essential tremor Long-term insulin use Hypertensive chronic kidney disease with stage 1 through stage 4 chronic kidney disease, or unspecified chronic kidney disease Risk for falls Pure hypercholesterolemia Essential (primary) hypertension Type 2 diabetes mellitus with hyperglycemia Surgical History Surgical History Presence of aortocoronary bypass graft (10/2017) H/O foot surgery 2020, toe amputation S/P triple vessel bypass 10/2018 Family History Family History Father Family history of cataracts Mother Family history of diabetes mellitus in first degree relative Other Cancer Diabetes mellitus Heart disease Hypertension Social History Social History Smoking status: Never smoker Second hand tobacco smoke exposure: No Alcohol intake: never Alcohol use details: 1-2 per year Substance use: never Substance use type: does not use Do You Feel Safe in your Home?: Yes Lack of Transportation: No Lack of Food: Never True Current Housing: I Have Housing Concerned About Future Housing: No Difficulty Paying Gas/Electric Bills: No Difficulty Paying for Meds: No Currently Unemployed: No Education: Associate Degree Difficulty w/ Childcare or Family Care: No Living arrangements: with family Occupation/Education: retired Gender identity (if verbalized by the patient): Male Spiritual care concerns: No Agree to blood products: Yes Meds Home Medications and Allergies Home Medications ?Medication ?Instructions ?Recorded ?Confirmed ?Type aspirin 81 mg tablet 81 mg PO DAILY 03/14/21 10/02/24 History cetirizine 10 mg capsule (Zyrtec) 10 mg PO DAILY PRN allergy symptoms 03/14/21 10/02/24 History ranolazine 1,000 mg 1,000 mg PO Q12H 03/14/21 10/02/24 History tablet,extended release,12 hr fluticasone propionate 50 1 spray intranasal DAILY 10/12/22 10/02/24 History mcg/actuation nasal spray,suspension (Flonase Allergy Relief) atorvastatin 80 mg tablet 80 mg PO DAILY 3 months #90 tabs 10/16/22 10/02/24 Rx glucagon 1 mg/0.2 mL subcutaneous 1 mg (0.2 mL) subcut ONCE #0.4 mL 03/08/23 10/02/24 Rx auto-injector ([employer] HypoPen 2-Pack) pen needle, diabetic 31 gauge x #100 ea 04/11/23 10/02/24 Rx 5/16 (BD Ultra-Fine Short Pen Needle) lancets (Microlet Lancet) #400 ea 06/01/23 10/02/24 Rx blood-glucose meter (Contour Next #1 ea 06/19/23 10/02/24 Rx Meter) blood sugar diagnostic (Contour #400 ea 08/27/23 10/02/24 Rx Next Test Strips) blood-glucose meter,continuous #1 ea 09/06/23 10/02/24 Rx ([employer] G7 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) pantoprazole 40 mg tablet,delayed 40 mg PO QHS #90 tabs 10/01/23 10/02/24 Rx release bumetanide 0.5 mg tablet 0.5 mg PO DAILY #30 tabs 12/17/23 10/02/24 Rx isosorbide mononitrate 60 mg 90 mg (1.5 x 60 mg) PO DAILY #135 01/09/24 10/02/24 Rx tablet,extended release 24 hr tabs buspirone 10 mg tablet 10 mg PO BID #180 tabs 01/28/24 10/02/24 Rx blood-glucose sensor (Dexcom G7 #9 ea 02/28/24 10/02/24 Rx Sensor device) sertraline 50 mg tablet See Rx Instructions .Route 04/03/24 10/02/24 Rx .COMPLEX #90 tabs dapagliflozin propanediol 10 mg 10 mg PO QAM 90 days #90 tabs 08/15/24 10/02/24 Rx tablet (Farxiga) propranolol 80 mg tablet 80 mg PO TID #270 tabs 08/31/24 10/02/24 Rx calcitriol 0.25 mcg capsule 0.25 mcg PO 3XW 09/08/24 10/02/24 History ezetimibe 10 mg tablet 10 mg PO DAILY 09/08/24 10/02/24 History ondansetron HCl 8 mg tablet 8 mg PO Q8H PRN nausea and 09/23/24 10/02/24 Rx vomiting #20 tabs insulin regular hum U-500 conc 500 See Rx Instructions subcut QAM 10/02/24 10/02/24 History unit/mL(3 mL) subcut pen (Humulin R U-500 (Conc) Insulin Kwikpen) semaglutide 0.25 mg or 0.5 mg (2 0.25 mg subcut WEEKLY 10/02/24 10/02/24 History mg/3 mL) subcutaneous pen injector (Ozempic) Allergies Allergy/AdvReac Type Severity Reaction Status Date / Time No Known Allergies Allergy Verified 10/02/24 20:30 Vital Signs Vital Signs - 24 hr 10/02/24 11:49 Temperature 97.6 F Pulse Rate 70 Respiratory Rate 16 Blood Pressure 116/59 L Pulse Oximetry 100 Oxygen Delivery Room Air Exam Narrative: General: well appearing, appears stated age. HEENT: normocephalic, atraumatic. Mucous membranes moist. EOMI, PERRLA, bilateral sclera anicteric, no conjunctival injection. Neck supple without JVD, lymphadenopathy, or bruit. Respiratory: clear to ascultation bilaterally. No rales/rhonic/wheezes. Cardiovascular: Regular rate and rhythm, normal S1-S2 upon ascultation. No murmurs, rubs, or clicks. PMI is nondisplaced, capillary refill less than 3 second. Abdomen: Soft, round, no pulsatile masses, nondistended and nontender. No rebound, no guarding. No CVA tenderness, no hepatosplenomegaly. Bowel sounds present to all four quadrants. No high pitch or tinkling sounds, resonant to percussion. Extremities: No cyanosis, clubbing, or edema present. Pulses are palpable 2/2. Active ROM to all four extremities. Right phalange 1st hard to tell if it is a deep purple or necrotic tissue, rest of the toes have erythema, dorsal surface of foot with erythema border marked, see photos for details Neuro: Alert and orientated x 4. PERRLA. Cranial nerves 2-12 intact without focal deficit. Skin: Warm, dry, and intact, without rash, erythema, or lesion. Psych: pleasant, cooperative, normal speech, normal affect, no hallucinations, no dysarthia H&P: Results Labs Labs: Short CBC 10/02/24 Range/Units 14:53 WBC 8.2 (4.5-10.0) K/mm3 Hgb 10.9 L (14.0-18.0) g/dL Hct 34.2 L (42.0-52.0) % Plt Count 482 H (150-375) k/mm3 BMP 10/02/24 14:53 Sodium 135 L Potassium 5.1 H Chloride 102 Carbon Dioxide 18 L BUN 73 H Creatinine 3.32 H Glucose 346 H Calcium 9.0 Liver Function 10/02/24 Range/Units 14:53 Total Bilirubin 1.0 (0.2-1.3) mg/dL AST 45 (17-59) U/L ALT 61 H (6-50) U/L Alkaline Phosphatase 125 (38-126) U/L Albumin 3.4 L (3.5-5.1) g/dL Assessment and Plan Assessment and plan (1) Fracture of right great toe: Code(s): S92.401A - Displaced unspecified fracture of right great toe, initial encounter for closed fracture Status: Acute Assessment and Plan: Nondisplaced fracture of lateral aspect of head of first proximal phalanx. Nondisplaced stellate fracture of tuft of first distal phalanx. Orthopedics consulted (2) Cellulitis of great toe, right: Code(s): L03.031 - Cellulitis of right toe Status: Acute Assessment and Plan: Secondary to above, due to patient's history of CAD with CABG and diabetes he is at high risk for poor wound healing Hard to tell if toe was necrotic Surgery consulted NPO in case of possible procedure IV cefepime, vancomycin and Flagyl Blood cultures pending (3) Diastolic dysfunction: Onset Date: 03/2022 Code(s): I51.89 - Other ill-defined heart diseases Status: Acute Assessment and Plan: Continue Bumex (4) Presence of aortocoronary bypass graft: Onset Date: 10/2017 Code(s): Z95.1 - Presence of aortocoronary bypass graft Status: Acute Assessment and Plan: Continue Inderal, aspirin, Lipitor, an imdur (5) Type 2 diabetes mellitus with diabetic polyneuropathy: Code(s): E11.42 - Type 2 diabetes mellitus with diabetic polyneuropathy Status: Acute Assessment and Plan: Diabetic diet Hemoglobin A1c pending Long-acting and SSI Patient is hard to control diabetic on several diabetic medication, and high- dose insulin, requested to have family bring in insulin from home Continue Kassidy and Zetia (6) Chronic kidney disease, stage 3b: Code(s): N18.32 - Chronic kidney disease, stage 3b Status: Acute Assessment and Plan: Patient on vancomycin Monitor kidney function Quality VTE Prophylaxis VTE prophylaxis: mechanical ordered and pharmacologic ordered Hospitalist MIPS Advance Care Plan I have confirmed that the patient's Advanced Care Plan is present, code status is documented, or surrogate decision maker is listed in patient medical record.: Yes Medication Reconciliation I have utilized all available resources to obtain, update and review the patients current medications (includes all prescriptions, OTC, herbals, cannabis, and nutritional supplements).: Yes
[2024-10-02 17:31] VITALS: BP 151/82; O2SAT 99
[2024-10-02 17:32] VITALS: O2SAT 99
[2024-10-02 17:45] VITALS: O2SAT 99
[2024-10-02] MEDS: SODIUM CHLORIDE 0.9% IV 1,000 ML 125 ML IV CONT (17:58)
[2024-10-02] MEDS: CEFEPIME 2 GM/NS 50 ML 2 GM/50 ML BAG IVPB (17:58)
[2024-10-02 18:00] LABS: Reflex Lactic Acid Yes or No Add Lactic
[2024-10-02 18:26] LABS: Lactic Acid 1.9 mmol/L (0.7-2.0)
[2024-10-02] MEDS: metroNIDAZOLE 500 MG/ISO 100ML 500 MG/100 ML BAG 100 MG IVPB (19:47)
[2024-10-02 20:28] VITALS: BMI 34.2
--- NOTE | 2024-10-02 20:43 | ADMGEN ---
This patient, Aj Blanc, was admitted to [facility] S[facility] Room 322-02. Patient/family oriented to hospital policies and general routines including ID bracelet, bed and alarms, visiting hours, pain management, procedures, bathroom and other care routines, personal items, smoking policy, room service/diet, and visiting hours. Information on how to activate the Rapid Response Team has been discussed. Patient/Family are encouraged to report perceived risks to care and to ask questions if they do not understand what they are told or what they should do.
[2024-10-02 21:35] VITALS: BP 128/65; PULSE 60; RESP 16; TEMP 36.6; O2SAT 98
[2024-10-02 22:02] LABS: Glucose Point of Care 247 mg/dl (65-105)
[2024-10-02] MEDS: VANCOMYCIN 1,500 MG/NS 500 ML 1,500 MG/500 ML BAG 250 MG IVPB (22:11)
[2024-10-02] MEDS: INSULIN GLARGINE (*BKC) 100 UNITS/ML 19 UNITS SUB-Q (22:11)
[2024-10-02] MEDS: INSULIN ASPART (*BKC) 100 UNITS/ML SUB-Q (22:12)
[2024-10-03] VITALS (17 sets, daily range): BP systolic 98–143; BP diastolic 55–82; PULSE 58–99; RESP 12–18; TEMP 36.3–37.1; O2SAT 93–99
[2024-10-03] MEDS: metroNIDAZOLE 500 MG/ISO 100ML 500 MG/100 ML BAG 100 MG IVPB ×3 (03:10→20:29)
[2024-10-03] MEDS: CEFEPIME 2 GM/NS 50 ML 2 GM/50 ML BAG IVPB ×2 (05:02→18:37)
[2024-10-03 07:18] LABS: Basophils Percent Auto 0.5 % (0.2-1.2); Eosinophils Absolute Auto 0.1 K/mm3 (0-0.3); Eosinophils Percent Auto 1.3 % (0-4.4); Hematocrit 32.9 % (42.0-52.0); Hemoglobin 10.7 g/dL (14.0-18.0); Immature Granulocyte Absolute 0.08 K/mm3 (0.00-0.031); Lymphocytes Absolute Auto 2.14 K/mm3 (0.9-3.2); Lymphocytes Percent Auto 27.4 % (18.3-44.2); Mean Corpuscular HGB Conc 32.5 g/dl (32-36); Mean Corpuscular Hemoglobin 30.8 pg (26-34); Mean Corpuscular Volume 94.8 fl (80-100); Mean Platelet Volume 10.5 fl (7.4-10.4); Monocytes Absolute Auto 0.8 K/mm3 (0.1-0.6); Monocytes Percent Auto 9.6 % (2.6-8.5); Neutrophils Absolute Auto 4.7 K/mm3 (1.3-6.7); Neutrophils Percent Auto 60.2 % (45.5-73.1); Platelet Count Result 432 k/mm3 (150-375); Red Blood Count 3.47 M/mm3 (4.6-6.20); Red Cell Distribution Width 13.8 % (11.5-14.5); White Blood Count 7.8 K/mm3 (4.5-10.0)
[2024-10-03 07:34] LABS: Anion Gap 11 mmol/L (4-12); Blood Urea Nitrogen 75 mg/dL (9-20); Calcium 8.6 mg/dL (8.4-10.2); Carbon Dioxide 19 mmol/L (22-30); Chloride 108 mmol/L (98-107); Estimated CRCL calculation 29 ml/min; Estimated Glomerular Filt Rate 20; Glucose 220 mg/dL (65-110); Potassium 4.7 mmol/L (3.4-5.0); Sodium 138 mmol/L (137-145)
[2024-10-03 08:37] LABS: Glucose Point of Care 211 mg/dl (65-105)
[2024-10-03] MEDS: ATORVASTATIN 40 MG TABLET 80 MG PO (09:02)
[2024-10-03] MEDS: ISOSORBIDE MONONITRATE 30 MG TAB.ER.24H 90 MG PO (09:02)
[2024-10-03] MEDS: ENOXAPARIN 40 MG/0.4 ML SYRINGE SUB-Q (09:03)
[2024-10-03] MEDS: EZETIMIBE 10 MG TABLET PO (09:03)
[2024-10-03] MEDS: busPIRone HCL 10 MG TABLET PO ×2 (09:03→18:28)
[2024-10-03] MEDS: SERTRALINE HCL 50 MG TABLET BY MOUTH ×2 (09:03)
[2024-10-03] MEDS: EMPAGLIFLOZIN 25 MG TABLET BY MOUTH (09:03)
[2024-10-03] MEDS: DOCUSATE SODIUM 100 MG CAPSULE PO ×2 (09:03→18:29)
[2024-10-03] MEDS: ASPIRIN 81 MG ENTERIC TABLET PO (09:03)
[2024-10-03] MEDS: INSULIN ASPART (*BKC) 100 UNITS/ML SUB-Q ×3 (09:21→14:32)
--- NOTE | 2024-10-03 09:46 | P.PNIM_ITS ---
Progress Note: A&P Assessment and Plan (1) Cellulitis of great toe, right: Code(s): L03.031 - Cellulitis of right toe Status: Acute Assessment and Plan: patient reports injury to right great toe with worsening symptoms patient has severe diabetes and CAD with poor wound healing initial x-ray did show right great toe was also fractured * CRP elevate no WBC * Surgery consulted if debridement or amputation needed * blood cultures no growth today * wound culture ordered * NPO in case of possible procedure * IV cefepime, vancomycin and Flagyl * Will need close glucose control for any type of wound healing patient is a severely uncontrolled diabetic on high-dose insulin (2) Fracture of right great toe: Code(s): S92.401A - Displaced unspecified fracture of right great toe, initial encounter for closed fracture Status: Acute Assessment and Plan: * Nondisplaced fracture of lateral aspect of head of first proximal phalanx. * Nondisplaced stellate fracture of tuft of first distal phalanx. * Orthopedics consulted * Pain management * elevate at rest (3) Type 2 diabetes mellitus with diabetic polyneuropathy: Code(s): E11.42 - Type 2 diabetes mellitus with diabetic polyneuropathy Status: Acute Assessment and Plan: * Diabetic diet * Holding semaglutide * Hemoglobin A1c pending * Accuchecks ACHS * SSI moderate dosing added * Patient is hard to control diabetic on several diabetic medication, and high- dose insulin started conversion to U 100 while hospitalized and adjust as need currently 65u/25u/10u * Continue Jardiance and Zetia (4) Diastolic dysfunction: Onset Date: 03/2022 Code(s): I51.89 - Other ill-defined heart diseases Status: Acute Assessment and Plan: * patient does not appear to be in exacerbation * resumed his home Bumex (5) Presence of aortocoronary bypass graft: Onset Date: 10/2017 Code(s): Z95.1 - Presence of aortocoronary bypass graft Status: Acute Assessment and Plan: * Continue Inderal, aspirin, Lipitor, an imdur, Atorvastatin (6) Chronic kidney disease, stage 3b: Code(s): N18.32 - Chronic kidney disease, stage 3b Status: Acute Assessment and Plan: Acute on chronic renal failure Baseline around mid 2.5 * CR 3.32 POA * Currently on vancomycin pharmacy to dose will need to deescalate cultures * Avoid nephrotoxic drugs. * Monitor antihypertensive drug therapy. * Avoid NSAIDs. * Routine CMP monitoring GFR. * Monitor electrolytes especially potassium. * Antibiotic doses depending on creatinine clearance. * Pharmacy does medications. Plan Code status: Full code per patient DVT prophylaxis: Lovenox on hold for possible surgery Stress ulcer prophylaxis: Protonix 40 daily PT/OT notes: PT/OT Pending Disposition: Patient continues admission for cellulitis of great right toe as well as fracture patient poor candidate for wound healing surgery consulted to determine if patient will need any type of debridement or amputation cultures are pending. Evaluate with PT OT for any discharge needs. Time Spent With Patient Time with patient: 15 - 25 minutes Subjective Date/time seen: 10/03/24 09:46 Interval history: Patient is a 69 year old male who was admitted for further evaluation and treatment right great toe wound with consult to surgery for possible debridement or amputation 10/03/2024: assumed care Patient seen post-op no acute distress denied any complaints at time of assessment. Denied SOB, CP, N/V. RT great toe wrapped in gauze. Review of Systems Review of Systems: 12 systems were reviewed and are negativ e except for as per HPI. All systems reviewed & are unremarkable except as noted in HPI and below Exam Narrative: * GENERAL: Alert and oriented x 3. No acute distress. * EYES: EOMI. No scleral icterus. PERRLA. * HEENT: Moist mucous membranes. * LUNGS: Clear to auscultation bilaterally. No accessory muscle use. * CARDIOVASCULAR: Regular rate and rhythm. No murmur. No JVD. S1-S2 * ABDOMEN: Soft, non tenderness and non-distended. No palpable masses. * EXTREMITIES: No edema. Right phalange 1st dressing in place, rest of the toes have erythema, dorsal surface of foot with erythema border marked * SKIN: No rashes or lesions. Skin warm, dry. * NEUROLOGIC: No focal neurological deficits. CN II-XII grossly intact Objective Data Vital Signs Vital Signs: Vital Signs - 24 hr 10/02/24 11:49 10/02/24 17:31 10/02/24 17:32 Temperature 97.6 F Pulse Rate 70 Respiratory Rate 16 Blood Pressure 116/59 L 151/82 H Pulse Oximetry 100 99 99 Oxygen Delivery Room Air 10/02/24 17:45 10/02/24 21:35 10/03/24 02:11 Temperature 97.9 F Pulse Rate 60 Respiratory Rate 16 Blood Pressure 128/65 Pulse Oximetry 99 98 Oxygen Delivery Room Air 10/03/24 02:30 10/03/24 04:27 Temperature 97.9 F 97.8 F Pulse Rate 63 61 Respiratory Rate 16 14 Blood Pressure 138/63 134/63 Pulse Oximetry 98 99 Oxygen Delivery Intake/Output Intake/Output: Intake & Output 09/30/24 10/01/24 10/02/24 10/03/24 23:59 23:59 23:59 23:59 Intake Total 1050 100 Balance 1050 100 Meds/Results Medications: Active Medications Generic Name Dose Route Start Last Admin Trade Name Freq PRN Reason Stop Dose Admin Acetaminophen 650 mg 10/02/24 16:55 Acetaminophen 325 Mg Tablet PO Q4H PRN Mild Pain (1-3) or Fever Hydrocodone Bitart/Acetaminophen 1 tab 10/02/24 16:55 Hydrocodone/Acetaminophen (*Crx) 5-325 Mg Tablet PO Q4H PRN Pain Rated 4-6 Aspirin 81 mg 10/03/24 09:00 10/03/24 09:03 Aspirin 81 Mg Enteric Tablet PO 81 mg QAM TAMIKA Administration Atorvastatin Calcium 80 mg 10/03/24 09:00 10/03/24 09:02 Atorvastatin 40 Mg Tablet PO 80 mg DAILY TAMIKA Administration Bumetanide 0.5 mg 10/03/24 09:00 Bumetanide 0.5 Mg Tablet PO DAILY TAMIKA Buspirone HCl 10 mg 10/03/24 09:00 10/03/24 09:03 Buspirone Hcl 10 Mg Tablet PO 10 mg BID TAMIKA Administration Calcitriol 0.25 mcg 10/03/24 09:00 Calcitriol 0.25 Mcg Capsule PO [id number] [facility] Dextrose 12.5 gm 10/02/24 17:35 Dextrose 50% 25 Gm/50 Ml Syringe IV PUSH PRN PRN Hypoglycemia Protocol Docusate Sodium 100 mg 10/03/24 09:00 10/03/24 09:03 Docusate Sodium 100 Mg Capsule PO 100 mg BID TAMIKA Administration Ezetimibe 10 mg 10/03/24 09:00 10/03/24 09:03 Ezetimibe 10 Mg Tablet PO 10 mg DAILY TAMIKA Administration Empagliflozin 25 mg 10/03/24 09:00 10/03/24 09:03 Empagliflozin 25 Mg Tablet BY MOUTH 25 mg QAM TAMIKA Administration Enoxaparin Sodium 40 mg 10/03/24 09:00 10/03/24 09:03 Enoxaparin 40 Mg/0.4 Ml Syringe SUB-Q 40 mg DAILY TAMIKA Administration Glucagon 1 mg 10/02/24 17:35 Glucagon For Inj 1 Mg Vial IM PRN PRN Hypoglycemia Protocol Glucose 15 gm 10/02/24 17:35 Glucose Oral Gel 15 Gm Of Glucse In 37.5 Gm Tube PO PRN PRN Hypoglycemia Protocol Cefepime HCl 2 gm in 50 mls @ 100 mls/hr 10/03/24 06:00 10/03/24 05:02 Maxipime 2 Gm/Ns 50 Ml IVPB 100 mls/hr Q12H TAMIKA Administration Metronidazole 500 mg in 100 mls @ 100 mls/hr 10/03/24 04:00 10/03/24 03:10 Flagyl 500 Mg/Iso Soln 100 Ml IVPB 100 mls/hr Q8H TAMIKA Administration Sodium Chloride 1,000 mls @ 125 mls/hr 10/02/24 16:55 10/02/24 18:32 Normal Saline Iv IV CONT Infused .Q8H TAMIKA Infusion Dextrose 1,000 mls @ 100 mls/hr 10/02/24 17:35 Dextrose 5% 1,000 Ml IVPB PRN PRN Hypoglycemia Protocol Vancomycin HCl 1,500 mg in 500 mls @ 250 mls/hr 10/04/24 10:00 Vancomycin 1,500 Mg/Ns 500 Ml IVPB Q36H TAMIKA Insulin Aspart 3 - 6 units 10/03/24 08:00 10/03/24 09:21 Insulin Aspart (*Bkc) 100 Units/Ml SUB-Q 3 units TIDWM [facility] Administration Protocol Insulin Aspart 1 - 3 units 10/02/24 21:00 10/02/24 22:12 Insulin Aspart (*Bkc) 100 Units/Ml SUB-Q 2 units HS TAMIKA Administration Protocol Insulin Glargine 19 units 10/02/24 21:00 10/02/24 22:11 Insulin Glargine (*Bkc) 100 Units/Ml 0.15 units/kg (19 units) 19 units SUB-Q Administration HS TAMIKA Isosorbide Mononitrate 90 mg 10/03/24 09:00 10/03/24 09:02 Isosorbide Mononitrate 30 Mg Tab.Er.24h PO 90 mg DAILY TAMIKA Administration Miscellaneous Information 1 each 10/03/24 09:42 Pharmacist Communication Order XX 10/03/24 09:43 ONCE ONE Morphine Sulfate 2 mg 10/02/24 16:55 Morphine Sulfate (*Crx) 2 Mg/Ml Inj IV PUSH Q2H PRN Pain Rated 7-10 Ondansetron HCl 4 mg 10/02/24 16:55 Ondansetron Inj 4 Mg/2 Ml Vial IV PUSH Q4H PRN Nausea Ondansetron HCl 4 mg 10/02/24 17:35 Ondansetron Inj 4 Mg/2 Ml Vial IV PUSH Q6H PRN Nausea And Vomiting Pantoprazole Sodium 40 mg 10/03/24 21:00 Pantoprazole 40 Mg Tablet PO QHS [facility] Propranolol HCl 80 mg 10/03/24 09:00 Propranolol Hcl 40 Mg Tablet PO TID [facility] Sertraline HCl 50 mg 10/02/24 23:10 10/03/24 09:03 Sertraline Hcl 50 Mg Tablet BY MOUTH 50 mg DAILY TAMIKA Administration Radiology Results: ITS Impressions Foot X-Ray 10/02/24 14:32 IMPRESSION: 1. Nondisplaced fracture of lateral aspect of head of first proximal phalanx. 2. Nondisplaced stellate fracture of tuft of first distal phalanx. 3. Mild polyarticular osteoarthritis. Labs Labs: Laboratory Results - last 24 hr 10/02/24 10/02/24 10/02/24 14:53 18:07 21:29 WBC 8.2 RBC 3.59 L Hgb 10.9 L Hct 34.2 L MCV 95.3 MCH 30.4 MCHC 31.9 L RDW 13.8 Plt Count 482 H MPV 10.5 H Immature Gran % (Auto) 1.6 H Neut % (Auto) 63.2 Lymph % (Auto) 23.3 [place] % (Auto) 9.9 H Eos % (Auto) 1.5 Baso % (Auto) 0.5 Lymph # (Auto) 1.91 [place] # (Auto) 0.8 H Eos # (Auto) 0.1 Baso # (Auto) 0.0 Abs Immat Gran (auto) 0.13 H Absolute Neuts (auto) 5.2 Absolute Nucleated RBC 0.000 Nucleated RBC % 0.0 PT 16.1 H INR 1.2 APTT 50.3 H Sodium 135 L Potassium 5.1 H Chloride 102 Carbon Dioxide 18 L Anion Gap 15 H BUN 73 H Creatinine 3.32 H Estim Creat Clear Calc 28 Estimated GFR 19 L Glucose 346 H POC Capillary Glucose 247 H Lactic Acid 2.4 H 1.9 Calcium 9.0 Total Bilirubin 1.0 AST 45 ALT 61 H Alkaline Phosphatase 125 C-Reactive Protein 17.8 H Total Protein 7.0 Albumin 3.4 L 10/03/24 10/03/24 06:46 08:21 WBC 7.8 RBC 3.47 L Hgb 10.7 L Hct 32.9 L MCV 94.8 MCH 30.8 MCHC 32.5 RDW 13.8 Plt Count 432 H MPV 10.5 H Immature Gran % (Auto) 1.0 H Neut % (Auto) 60.2 Lymph % (Auto) 27.4 [place] % (Auto) 9.6 H Eos % (Auto) 1.3 Baso % (Auto) 0.5 Lymph # (Auto) 2.14 [place] # (Auto) 0.8 H Eos # (Auto) 0.1 Baso # (Auto) 0.0 Abs Immat Gran (auto) 0.08 H Absolute Neuts (auto) 4.7 Absolute Nucleated RBC 0.000 Nucleated RBC % 0.0 PT INR APTT Sodium 138 Potassium 4.7 Chloride 108 H Carbon Dioxide 19 L Anion Gap 11 BUN 75 H Creatinine 3.07 H Estim Creat Clear Calc 29 Estimated GFR 20 L Glucose 220 H POC Capillary Glucose 211 H Lactic Acid Calcium 8.6 Total Bilirubin AST ALT Alkaline Phosphatase C-Reactive Protein Total Protein Albumin Quality VTE Prophylaxis VTE prophylaxis: mechanical ordered and pharmacologic ordered -Patient's previous records reviewed on admission -ER notes reviewed in detail on admission -discussed all findings and current treatment plan with patient/Family/POA -Consultations reviewed for recommendations -Patient's disposition for safe discharge discussed with correctional case manager Dictation performed by [employer] direct speech recognition software, therefore field machinist variants and typographical errors may occur. Hospitalist MIPS Advance Care Plan I have confirmed that the patient's Advanced Care Plan is present, code status is documented, or surrogate decision maker is listed in patient medical record.: Yes Medication Reconciliation I have utilized all available resources to obtain, update and review the patients current medications (includes all prescriptions, OTC, herbals, cannabis, and nutritional supplements).: Yes The patient is not eligible for med reconciliation; the patient is in a emergent medical situation where delaying treatment would jeopardize the patients health.: No
--- NOTE | 2024-10-03 11:26 | P.CONGS_ITS ---
Assessment and Plan Assessment and plan (1) Cellulitis of great toe, right: Code(s): L03.031 - Cellulitis of right toe Status: Acute Assessment and Plan: This is an insulin-dependent diabetic who presented with an infected right great toe wound with a black eschar over the dorsal aspect of the right great toe with purulent drainage. Right foot x-ray showed nondisplaced fracture of the first proximal phalanx and first distal phalanx. No evidence of osteomyelitis on plain films. Will start local wound care with a gauze cover dressing for now. Given the right great toe wound/infection is in the same location of the fractures, we may need to discuss with Orthopedic surgery, who is already consulted. Will discuss further with Dr. Aceves and Orthopedics. Will keep NPO while deciding on next steps for surgery. (2) Fracture of right great toe: Code(s): S92.401A - Displaced unspecified fracture of right great toe, initial encounter for closed fracture Status: Acute Assessment and Plan: See above. (3) Acute on chronic renal failure: Code(s): N17.9 - Acute kidney failure, unspecified; N18.9 - Chronic kidney disease, unspecified Status: Acute (4) Type 2 diabetes mellitus with hyperglycemia: Code(s): E11.65 - Type 2 diabetes mellitus with hyperglycemia Status: Acute (5) Long-term insulin use: Code(s): Z79.4 - penitentiary (current) use of insulin Status: Acute (6) Presence of aortocoronary bypass graft: Onset Date: 10/2017 Code(s): Z95.1 - Presence of aortocoronary bypass graft Status: Acute History of Present Illness Consult details Consult date: 10/03/24 Reason for consult: other (Infected great toe) Requesting physician: Jacqueline Dietz APRN Narrative: This is a 69-year-old man with PMH of CKD, stage 3 diastolic dysfunction, insulin-dependent type 2 diabetes mellitus, and CAD s/p CABG, who we have been asked to see in surgical consultation for right great toe infection. He reports having an injury to his right great toe about 2 weeks ago. His toe got stuck on the corner of a rug while he was walking, and got pulled under the rug. He reports a significant abrasion to the dorsal aspect of the toe due to the trauma from the rug. It was initially bleeding and he had an open wound. His used hydrogen peroxide and cleaned the wound. They have been dressing it daily. After about 3-4 days, he began to notice redness of the great toe and the wound started to develop a black area. He then called his PCP, who immediately started him on oral antibiotics as an outpatient. He believes he was taking the oral antibiotics for about 6 days and then he went in to see his PCP in the office yesterday for evaluation. He felt dizzy while in the office and they recommended he go to the ED for evaluation. He has a history of a left great toe amputation about 5-7 years ago at an outlying facility. His only surgery on the right foot includes removal of his toenail on the right great toe. In the ED, vital signs were stable and he was afebrile. Labs showed a white blood cell count of 8200, sodium 135, potassium 5.1, BUN 73, creatinine 3.2, glucose 346, lactic acid 2.4, CRP 17.8. Right foot x-ray showed a nondisplaced fracture of lateral aspect of head of first proximal phalanx, nondisplaced stellate fracture of tuft of first distal phalanx, and mild polyarticular osteoarthritis.He has been admitted and started on IV cefepime, metronidazole, and vancomycin. He is now seen on the medical floor. Review of Systems 2 Review of Systems: All systems reviewed & are unremarkable except as noted in HPI and below PMFSH Past Medical History Medical History Gastro-esophageal reflux disease without esophagitis Chronic kidney disease, stage 3b Major depressive disorder, recurrent, mild Diastolic dysfunction (03/2022) Coronary artery disease with angina pectoris Essential tremor Long-term insulin use Hypertensive chronic kidney disease with stage 1 through stage 4 chronic kidney disease, or unspecified chronic kidney disease Risk for falls Pure hypercholesterolemia Essential (primary) hypertension Type 2 diabetes mellitus with hyperglycemia Surgical History Surgical History History of amputation of left great toe Presence of aortocoronary bypass graft (10/2017) H/O foot surgery 2020, toe amputation S/P triple vessel bypass 10/2018 Family History Family History Father Family history of cataracts Mother Family history of diabetes mellitus in first degree relative Other Cancer Diabetes mellitus Heart disease Hypertension Social History Social History Smoking status: Never smoker Second hand tobacco smoke exposure: No Alcohol intake: never Alcohol use details: 1-2 per year Substance use: never Substance use type: does not use Do You Feel Safe in your Home?: Yes Lack of Transportation: No Lack of Food: Never True Current Housing: I Have Housing Concerned About Future Housing: No Difficulty Paying Gas/Electric Bills: No Difficulty Paying for Meds: No Currently Unemployed: No Education: Associate Degree Difficulty w/ Childcare or Family Care: No Living arrangements: with family Occupation/Education: retired Gender identity (if verbalized by the patient): Male Spiritual care concerns: No Agree to blood products: Yes Meds Home Medications and Allergies Home Medications ?Medication ?Instructions ?Recorded ?Confirmed ?Type aspirin 81 mg tablet 81 mg PO DAILY 03/14/21 10/02/24 History cetirizine 10 mg capsule (Zyrtec) 10 mg PO DAILY PRN allergy symptoms 03/14/21 10/02/24 History ranolazine 1,000 mg 1,000 mg PO Q12H 03/14/21 10/02/24 History tablet,extended release,12 hr fluticasone propionate 50 1 spray intranasal DAILY 10/12/22 10/02/24 History mcg/actuation nasal spray,suspension (Flonase Allergy Relief) atorvastatin 80 mg tablet 80 mg PO DAILY 3 months #90 tabs 10/16/22 10/02/24 Rx glucagon 1 mg/0.2 mL subcutaneous 1 mg (0.2 mL) subcut ONCE #0.4 mL 03/08/23 10/02/24 Rx auto-injector (Gvoke HypoPen 2-Pack) pen needle, diabetic 31 gauge x #100 ea 04/11/23 10/02/24 Rx 5/16 (BD Ultra-Fine Short Pen Needle) lancets (Microlet Lancet) #400 ea 06/01/23 10/02/24 Rx blood-glucose meter (Contour Next #1 ea 06/19/23 10/02/24 Rx Meter) blood sugar diagnostic (Contour #400 ea 08/27/23 10/02/24 Rx Next Test Strips) blood-glucose meter,continuous #1 ea 09/06/23 10/02/24 Rx (Dexcom G7 Laser Beam Color Scanner Operator) pantoprazole 40 mg tablet,delayed 40 mg PO QHS #90 tabs 10/01/23 10/02/24 Rx release bumetanide 0.5 mg tablet 0.5 mg PO DAILY #30 tabs 12/17/23 10/02/24 Rx isosorbide mononitrate 60 mg 90 mg (1.5 x 60 mg) PO DAILY #135 01/09/24 10/02/24 Rx tablet,extended release 24 hr tabs buspirone 10 mg tablet 10 mg PO BID #180 tabs 01/28/24 10/02/24 Rx blood-glucose sensor (Dexcom G7 #9 ea 02/28/24 10/02/24 Rx Sensor device) sertraline 50 mg tablet See Rx Instructions .Route 04/03/24 10/02/24 Rx .COMPLEX #90 tabs dapagliflozin propanediol 10 mg 10 mg PO QAM 90 days #90 tabs 08/15/24 10/02/24 Rx tablet (Farxiga) propranolol 80 mg tablet 80 mg PO TID #270 tabs 08/31/24 10/02/24 Rx calcitriol 0.25 mcg capsule 0.25 mcg PO 3XW 09/08/24 10/02/24 History ezetimibe 10 mg tablet 10 mg PO DAILY 09/08/24 10/02/24 History ondansetron HCl 8 mg tablet 8 mg PO Q8H PRN nausea and 09/23/24 10/02/24 Rx vomiting #20 tabs insulin regular hum U-500 conc 500 See Rx Instructions subcut QAM 10/02/24 10/02/24 History unit/mL(3 mL) subcut pen (Humulin R U-500 (Conc) Insulin Kwikpen) semaglutide 0.25 mg or 0.5 mg (2 0.25 mg subcut WEEKLY 10/02/24 10/02/24 History mg/3 mL) subcutaneous pen injector (Ozempic) Allergies Allergy/AdvReac Type Severity Reaction Status Date / Time No Known Allergies Allergy Verified 10/02/24 20:30 Vital Signs Vital Signs - 24 hr 10/02/24 11:49 10/02/24 17:31 10/02/24 17:32 Temperature 97.6 F Pulse Rate 70 Respiratory Rate 16 Blood Pressure 116/59 L 151/82 H Pulse Oximetry 100 99 99 Oxygen Delivery Room Air 10/02/24 17:45 10/02/24 21:35 10/03/24 02:11 Temperature 97.9 F Pulse Rate 60 Respiratory Rate 16 Blood Pressure 128/65 Pulse Oximetry 99 98 Oxygen Delivery Room Air 10/03/24 02:30 10/03/24 04:27 Temperature 97.9 F 97.8 F Pulse Rate 63 61 Respiratory Rate 16 14 Blood Pressure 138/63 134/63 Pulse Oximetry 98 99 Oxygen Delivery Exam 2 Const: General: comfortable and no acute distress Nutritional Appearance: a verage body habitus Orientation/consciousness: patient oriented x3 HENMT: Head: normocephalic and atraumatic Ears: hearing grossly normal bilaterally Mouth: Yes moist mucous membranes Eyes: General: appearance normal, both eyes and all related structures P upils: Equal, round and reactive pupils present Neck: Neck: normal visual inspection and full ROM Resp: Effort & Inspection: no respiratory distress Auscultation: clear to auscultation bilaterally Cardio: Rate: regular rate Rhythm: regular rhythm Peripheral pulses: P eripheral pulses 2+ throughout GI: Inspection: non-distended GI Palp: Yes Soft to palpation, No Tenderness to palpation present (GI), No Guarding due to palpation present (GI) and No Rebound tenderness present Percussion: Yes normal to percussion A uscultation: normal bowel sounds Skin: General skin exam: normal color Neuro: General: moves all extremities and no focal motor deficits Speech: n ormal speech Motor exam (neuro): 5/5 motor strength present throughout Extrem: General: capillary refill normal Left lower extremity: full ROM, normal capillary refill and foot Details: vascular exam Details: dorsalis pedis pulse present and posterior tibial pulse present; abnormal to inspection (healed left great toe amputation) and no edema Other: Right great toe with erythema and edema, there is a 4.5 x 3.5 cm black eschar over majority of the dorsal aspect of the toe with bloody purulent drainage coming through the eschar, skin of the distal tip and plantar aspect of the toe is intact but dark purple and dark red with fluid beneath the dermis. Erythema extends dorsally down the forefoot with demarcated lines from staff yesterday. No erythema extending beyond the marked line. Diminished sensation of the left foot consistent with his neuropathy, no sensation of the toes. Strong palpable DP and PT pulses bilaterally. Psych: Mental Status: mental status grossly normal Attitude: cooperative Insight: Good insight present (Psych) Judgement: Good judgement present (Psych) Results Labs 10/03/24 06:46 10/03/24 06:46 Labs: Abnormal lab results 10/02/24 10/02/24 10/03/24 Range/Units 14:53 21:29 06:46 RBC 3.59 L 3.47 L (4.6-6.20) M/mm3 Hgb 10.9 L 10.7 L (14.0-18.0) g/dL Hct 34.2 L 32.9 L (42.0-52.0) % MCHC 31.9 L (32-36) g/dl Plt Count 482 H 432 H (150-375) k/mm3 MPV 10.5 H 10.5 H (7.4-10.4) fl Immature Gran % (Auto) 1.6 H 1.0 H (0-0.5) % Todd % (Auto) 9.9 H 9.6 H (2.6-8.5) % Todd # (Auto) 0.8 H 0.8 H (0.1-0.6) K/mm3 Abs Immat Gran (auto) 0.13 H 0.08 H (0.00-0.031) K/mm3 PT 16.1 H (11.1-14.7) Seconds APTT 50.3 H (22.3-36.8) Seconds Sodium 135 L (137-145) mmol/L Potassium 5.1 H (3.4-5.0) mmol/L Chloride 108 H (98-107) mmol/L Carbon Dioxide 18 L 19 L (22-30) mmol/L Anion Gap 15 H (4-12) mmol/L BUN 73 H 75 H (9-20) mg/dL Creatinine 3.32 H 3.07 H (0.7-1.3) mg/dL Estimated GFR 19 L 20 L (59 - ) Glucose 346 H 220 H (65-110) mg/dL POC Capillary Glucose 247 H (65-105) mg/dl Lactic Acid 2.4 H (0.7-2.0) mmol/L ALT 61 H (6-50) U/L C-Reactive Protein 17.8 H (<1.0) mg/dL Albumin 3.4 L (3.5-5.1) g/dL 10/03/24 Range/Units 08:21 RBC (4.6-6.20) M/mm3 Hgb (14.0-18.0) g/dL Hct (42.0-52.0) % MCHC (32-36) g/dl Plt Count (150-375) k/mm3 MPV (7.4-10.4) fl Immature Gran % (Auto) (0-0.5) % Todd % (Auto) (2.6-8.5) % Todd # (Auto) (0.1-0.6) K/mm3 Abs Immat Gran (auto) (0.00-0.031) K/mm3 PT (11.1-14.7) Seconds APTT (22.3-36.8) Seconds Sodium (137-145) mmol/L Potassium (3.4-5.0) mmol/L Chloride (98-107) mmol/L Carbon Dioxide (22-30) mmol/L Anion Gap (4-12) mmol/L BUN (9-20) mg/dL Creatinine (0.7-1.3) mg/dL Estimated GFR (59 - ) Glucose (65-110) mg/dL POC Capillary Glucose 211 H (65-105) mg/dl Lactic Acid (0.7-2.0) mmol/L ALT (6-50) U/L C-Reactive Protein (<1.0) mg/dL Albumin (3.5-5.1) g/dL Diabetes panel 10/02/24 10/03/24 Range/Units 14:53 06:46 Sodium 135 L 138 (137-145) mmol/L Potassium 5.1 H 4.7 (3.4-5.0) mmol/L Chloride 102 108 H (98-107) mmol/L Carbon Dioxide 18 L 19 L (22-30) mmol/L BUN 73 H 75 H (9-20) mg/dL Creatinine 3.32 H 3.07 H (0.7-1.3) mg/dL Glucose 346 H 220 H (65-110) mg/dL Calcium 9.0 8.6 (8.4-10.2) mg/dL AST 45 (17-59) U/L ALT 61 H (6-50) U/L Alkaline Phosphatase 125 (38-126) U/L Total Protein 7.0 (6.3-8.2) g/dL Albumin 3.4 L (3.5-5.1) g/dL Calcium panel 10/02/24 10/03/24 Range/Units 14:53 06:46 Calcium 9.0 8.6 (8.4-10.2) mg/dL Albumin 3.4 L (3.5-5.1) g/dL Pituitary panel 10/02/24 10/03/24 Range/Units 14:53 06:46 Sodium 135 L 138 (137-145) mmol/L Potassium 5.1 H 4.7 (3.4-5.0) mmol/L Chloride 102 108 H (98-107) mmol/L Carbon Dioxide 18 L 19 L (22-30) mmol/L BUN 73 H 75 H (9-20) mg/dL Creatinine 3.32 H 3.07 H (0.7-1.3) mg/dL Glucose 346 H 220 H (65-110) mg/dL Calcium 9.0 8.6 (8.4-10.2) mg/dL Adrenal panel 10/02/24 10/03/24 Range/Units 14:53 06:46 Sodium 135 L 138 (137-145) mmol/L Potassium 5.1 H 4.7 (3.4-5.0) mmol/L Chloride 102 108 H (98-107) mmol/L Carbon Dioxide 18 L 19 L (22-30) mmol/L BUN 73 H 75 H (9-20) mg/dL Creatinine 3.32 H 3.07 H (0.7-1.3) mg/dL Glucose 346 H 220 H (65-110) mg/dL Calcium 9.0 8.6 (8.4-10.2) mg/dL Total Bilirubin 1.0 (0.2-1.3) mg/dL AST 45 (17-59) U/L ALT 61 H (6-50) U/L Alkaline Phosphatase 125 (38-126) U/L Total Protein 7.0 (6.3-8.2) g/dL Albumin 3.4 L (3.5-5.1) g/dL All other labs normal. Imaging Additional studies: ITS Impressions Foot X-Ray 10/02/24 14:32 IMPRESSION: 1. Nondisplaced fracture of lateral aspect of head of first proximal phalanx. 2. Nondisplaced stellate fracture of tuft of first distal phalanx. 3. Mild polyarticular osteoarthritis.
[2024-10-03 11:36] LABS: Glucose Point of Care 212 mg/dl (65-105)
[2024-10-03] MEDS: BUMETANIDE 0.5 MG TABLET PO (12:06)
[2024-10-03] MEDS: calcitrioL 0.25 MCG CAPSULE PO (12:06)
[2024-10-03] MEDS: PROPRANOLOL HCL 40 MG TABLET 80 MG PO ×2 (12:06→18:29)
--- NOTE | 2024-10-03 14:16 | WPDHPUPDATE1 ---
History and Physical Update Update Date/Time: 10/03/24 14:16 History and Physical has been reviewed, including an updated exam of the patient. There are NO changes in the patient's condition. Risks, benefits, and alternatives have been discussed and questions answered. Patient agrees to proceed with procedure.
[2024-10-03 14:24] LABS: Glucose Point of Care 203 mg/dl (65-105)
--- NOTE | 2024-10-03 14:30 | SUR.PREOP ---
1430- Dr. Coles aware of patient's BG 203. Orders to give Novolog 3 units subcutaneous. Orders placed and dose given, see MAR.
--- NOTE | 2024-10-03 14:51 | WPDANESEPPF ---
Anes - Initial Pre Proc Eval Procedure: Operation Date: 10/03/24 16:00 Proposed Procedures p Debridement Of Right Great Toe - Tom Aceves DO Date/Time: 10/03/24 14:51 Surgeon: Darcie Garcia APRN Pre Op Diagnosis: Toe Cellulitis/Toe Frac/Acute On Chronic Renal Jed Patient Data Age: 69 Gender: M Height: 1.88 m Weight: 120.9 kg Last Vital Signs Temp 98.7 F 10/03/24 13:40 Pulse 65 10/03/24 13:40 Resp 18 10/03/24 13:40 BP 137/70 10/03/24 13:40 Pulse Ox 98 10/03/24 13:40 O2 Del Method Room Air 10/03/24 13:40 Allergies Allergy/AdvReac Type Severity Reaction Status Date / Time No Known Allergies Allergy Verified 10/03/24 14:03 Home Medications ?Medication ?Instructions ?Recorded ?Confirmed ?Type aspirin 81 mg tablet 81 mg PO DAILY 03/14/21 10/02/24 History cetirizine 10 mg capsule (Zyrtec) 10 mg PO DAILY PRN allergy symptoms 03/14/21 10/02/24 History ranolazine 1,000 mg 1,000 mg PO Q12H 03/14/21 10/02/24 History tablet,extended release,12 hr fluticasone propionate 50 1 spray intranasal DAILY 10/12/22 10/02/24 History mcg/actuation nasal spray,suspension (Flonase Allergy Relief) atorvastatin 80 mg tablet 80 mg PO DAILY 3 months #90 tabs 10/16/22 10/02/24 Rx glucagon 1 mg/0.2 mL subcutaneous 1 mg (0.2 mL) subcut ONCE #0.4 mL 03/08/23 10/02/24 Rx auto-injector (Gvoke HypoPen 2-Pack) pen needle, diabetic 31 gauge x #100 ea 04/11/23 10/02/24 Rx 5/16 (BD Ultra-Fine Short Pen Needle) lancets (Microlet Lancet) #400 ea 06/01/23 10/02/24 Rx blood-glucose meter (Contour Next #1 ea 06/19/23 10/02/24 Rx Meter) blood sugar diagnostic (Contour #400 ea 08/27/23 10/02/24 Rx Next Test Strips) blood-glucose meter,continuous #1 ea 09/06/23 10/02/24 Rx (Dexcom G7 Bulk Sealer) pantoprazole 40 mg tablet,delayed 40 mg PO QHS #90 tabs 10/01/23 10/02/24 Rx release bumetanide 0.5 mg tablet 0.5 mg PO DAILY #30 tabs 12/17/23 10/02/24 Rx isosorbide mononitrate 60 mg 90 mg (1.5 x 60 mg) PO DAILY #135 01/09/24 10/02/24 Rx tablet,extended release 24 hr tabs buspirone 10 mg tablet 10 mg PO BID #180 tabs 01/28/24 10/02/24 Rx blood-glucose sensor (Dexcom G7 #9 ea 02/28/24 10/02/24 Rx Sensor device) sertraline 50 mg tablet See Rx Instructions .Route 04/03/24 10/02/24 Rx .COMPLEX #90 tabs dapagliflozin propanediol 10 mg 10 mg PO QAM 90 days #90 tabs 08/15/24 10/02/24 Rx tablet (Farxiga) propranolol 80 mg tablet 80 mg PO TID #270 tabs 08/31/24 10/02/24 Rx calcitriol 0.25 mcg capsule 0.25 mcg PO 3XW 09/08/24 10/02/24 History ezetimibe 10 mg tablet 10 mg PO DAILY 09/08/24 10/02/24 History ondansetron HCl 8 mg tablet 8 mg PO Q8H PRN nausea and 09/23/24 10/02/24 Rx vomiting #20 tabs insulin regular hum U-500 conc 500 See Rx Instructions subcut QAM 10/02/24 10/02/24 History unit/mL(3 mL) subcut pen (Humulin R U-500 (Conc) Insulin Kwikpen) semaglutide 0.25 mg or 0.5 mg (2 0.25 mg subcut WEEKLY 10/02/24 10/02/24 History mg/3 mL) subcutaneous pen injector (Ozempic) Laboratory Tests 10/02/24 10/02/24 10/02/24 14:53 18:07 21:29 WBC 8.2 K/mm3 (4.5-10.0) RBC 3.59 L M/mm3 (4.6-6.20) Hgb 10.9 L g/dL (14.0-18.0) Hct 34.2 L % (42.0-52.0) MCV 95.3 fl (80-100) MCH 30.4 pg (26-34) MCHC 31.9 L g/dl (32-36) RDW 13.8 % (11.5-14.5) Plt Count 482 H k/mm3 (150-375) MPV 10.5 H fl (7.4-10.4) Immature Gran % (Auto) 1.6 H % (0-0.5) Neut % (Auto) 63.2 % (45.5-73.1) Lymph % (Auto) 23.3 % (18.3-44.2) Roberts % (Auto) 9.9 H % (2.6-8.5) Eos % (Auto) 1.5 % (0-4.4) Baso % (Auto) 0.5 % (0.2-1.2) Lymph # (Auto) 1.91 K/mm3 (0.9-3.2) Roberts # (Auto) 0.8 H K/mm3 (0.1-0.6) Eos # (Auto) 0.1 K/mm3 (0-0.3) Baso # (Auto) 0.0 K/mm3 (0.0-0.1) Abs Immat Gran (auto) 0.13 H K/mm3 (0.00-0.031) Absolute Neuts (auto) 5.2 K/mm3 (1.3-6.7) Absolute Nucleated RBC 0.000 K/mm3 (0.0-0.012) Nucleated RBC % 0.0 % (0.0-0.2) PT 16.1 H Seconds (11.1-14.7) INR 1.2 APTT 50.3 H Seconds (22.3-36.8) Sodium 135 L mmol/L (137-145) Potassium 5.1 H mmol/L (3.4-5.0) Chloride 102 mmol/L (98-107) Carbon Dioxide 18 L mmol/L (22-30) Anion Gap 15 H mmol/L (4-12) BUN 73 H mg/dL (9-20) Creatinine 3.32 H mg/dL (0.7-1.3) Estim Creat Clear Calc 28 ml/min Estimated GFR 19 L (59 - ) Glucose 346 H mg/dL (65-110) POC Capillary Glucose 247 H mg/dl (65-105) Lactic Acid 2.4 H mmol/L 1.9 mmol/L (0.7-2.0) (0.7-2.0) Calcium 9.0 mg/dL (8.4-10.2) Total Bilirubin 1.0 mg/dL (0.2-1.3) AST 45 U/L (17-59) ALT 61 H U/L (6-50) Alkaline Phosphatase 125 U/L (38-126) C-Reactive Protein 17.8 H mg/dL (<1.0) Total Protein 7.0 g/dL (6.3-8.2) Albumin 3.4 L g/dL (3.5-5.1) 10/03/24 10/03/24 10/03/24 06:46 08:21 11:26 WBC 7.8 K/mm3 (4.5-10.0) RBC 3.47 L M/mm3 (4.6-6.20) Hgb 10.7 L g/dL (14.0-18.0) Hct 32.9 L % (42.0-52.0) MCV 94.8 fl (80-100) MCH 30.8 pg (26-34) MCHC 32.5 g/dl (32-36) RDW 13.8 % (11.5-14.5) Plt Count 432 H k/mm3 (150-375) MPV 10.5 H fl (7.4-10.4) Immature Gran % (Auto) 1.0 H % (0-0.5) Neut % (Auto) 60.2 % (45.5-73.1) Lymph % (Auto) 27.4 % (18.3-44.2) Roberts % (Auto) 9.6 H % (2.6-8.5) Eos % (Auto) 1.3 % (0-4.4) Baso % (Auto) 0.5 % (0.2-1.2) Lymph # (Auto) 2.14 K/mm3 (0.9-3.2) Roberts # (Auto) 0.8 H K/mm3 (0.1-0.6) Eos # (Auto) 0.1 K/mm3 (0-0.3) Baso # (Auto) 0.0 K/mm3 (0.0-0.1) Abs Immat Gran (auto) 0.08 H K/mm3 (0.00-0.031) Absolute Neuts (auto) 4.7 K/mm3 (1.3-6.7) Absolute Nucleated RBC 0.000 K/mm3 (0.0-0.012) Nucleated RBC % 0.0 % (0.0-0.2) PT INR APTT Sodium 138 mmol/L (137-145) Potassium 4.7 mmol/L (3.4-5.0) Chloride 108 H mmol/L (98-107) Carbon Dioxide 19 L mmol/L (22-30) Anion Gap 11 mmol/L (4-12) BUN 75 H mg/dL (9-20) Creatinine 3.07 H mg/dL (0.7-1.3) Estim Creat Clear Calc 29 ml/min Estimated GFR 20 L (59 - ) Glucose 220 H mg/dL (65-110) POC Capillary Glucose 211 H mg/dl 212 H mg/dl (65-105) (65-105) Lactic Acid Calcium 8.6 mg/dL (8.4-10.2) Total Bilirubin AST ALT Alkaline Phosphatase C-Reactive Protein Total Protein Albumin 10/03/24 14:16 WBC RBC Hgb Hct MCV MCH MCHC RDW Plt Count MPV Immature Gran % (Auto) Neut % (Auto) Lymph % (Auto) Roberts % (Auto) Eos % (Auto) Baso % (Auto) Lymph # (Auto) Roberts # (Auto) Eos # (Auto) Baso # (Auto) Abs Immat Gran (auto) Absolute Neuts (auto) Absolute Nucleated RBC Nucleated RBC % PT INR APTT Sodium Potassium Chloride Carbon Dioxide Anion Gap BUN Creatinine Estim Creat Clear Calc Estimated GFR Glucose POC Capillary Glucose 203 H mg/dl (65-105) Lactic Acid Calcium Total Bilirubin AST ALT Alkaline Phosphatase C-Reactive Protein Total Protein Albumin Patient hx anesthesia problems: none Family hx anesthesia problems: none Results Review: All pre-operative results and documents have been reviewed as part of the pre-operative evaluation. [facility] Past Medical History Medical History Gastro-esophageal reflux disease without esophagitis Chronic kidney disease, stage 3b Major depressive disorder, recurrent, mild Diastolic dysfunction (03/2022) Coronary artery disease with angina pectoris Essential tremor Long-term insulin use Hypertensive chronic kidney disease with stage 1 through stage 4 chronic kidney disease, or unspecified chronic kidney disease Risk for falls Pure hypercholesterolemia Essential (primary) hypertension Type 2 diabetes mellitus with hyperglycemia Surgical History Surgical History History of amputation of left great toe Presence of aortocoronary bypass graft (10/2017) H/O foot surgery 2020, toe amputation S/P triple vessel bypass 10/2018 Family History Family History Father Family history of cataracts Mother Family history of diabetes mellitus in first degree relative Other Cancer Diabetes mellitus Heart disease Hypertension Social History Social History Smoking status: Never smoker Second hand tobacco smoke exposure: No Alcohol intake: never Alcohol use details: 1-2 per year Substance use: never Substance use type: does not use Do You Feel Safe in your Home?: Yes Lack of Transportation: No Lack of Food: Never True Current Housing: I Have Housing Concerned About Future Housing: No Difficulty Paying Gas/Electric Bills: No Difficulty Paying for Meds: No Currently Unemployed: No Education: Associate Degree Difficulty w/ Childcare or Family Care: No Living arrangements: with family Occupation/Education: retired Gender identity (if verbalized by the patient): Male Spiritual care concerns: No Agree to blood products: Yes Anes - Eval Final PreProcedure Day of Procedure 10/03/24 14:51 Patient weight: obese Lungs: normal air movement Airway: Mallampati scale class II Neurological: alert and oriented Last oral intake: >/= 8 hours ASA classification: III Emergent: no Anesthetic plan: proceed Anesthesia type and monitoring: general GIVS and standard monitoring Results Review: All pre-operative results and documents have been reviewed as part of the pre-operative evaluation. Poorly controlled DM, HTN, hyperlipidemia. FSBS 203 in preop area. Informed Consent: The patient's anesthetic plan and its attendant risks and benefits were discussed with the patient/family/POA. Questions were solicited and answers provided to the satisfaction of the patient/family/POA.
[2024-10-03] MEDS: BUPivacaine HCL 0.5% 10 ML AMP INFILTRATE (15:32)
[2024-10-03] MEDS: LACTATED RINGERS 1,000 ML 30 ML IV CONT (15:38)
[2024-10-03 15:46] LABS: Glucose Point of Care 182 mg/dl (65-105)
--- NOTE | 2024-10-03 16:10 | W.PM.PROC2 ---
Procedure Note - Detailed Date of Procedure 10/03/24 Pre-op Diagnosis Right great toe diabetic foot ulcer, right great toe fracture Post-op Diagnosis Same (Right great toe diabetic foot ulcer, open toe fracture) Procedure Performed Sharp excisional debridement right great toe diabetic foot ulcer measuring 5 cm x 3 cm including skin, subcutaneous fat, and tendon Surgeon Tom Aceves, DO Anesthesia General and Local (0.5% bupivacaine) Indications This is a 69-year-old man who presented with a diabetic toe ulcer on his right foot. He has a history of injuring the foot a couple weeks ago and noticed a wound develop on the toe that continued to worsen over the past couple weeks. He now has a necrotic eschar on the dorsal surface of the toe and has purulence drainage coming from under the eschar. X-ray also showed evidence of a distal toe fracture. Discussions were made with the patient about treatment options and decision was made to proceed with debridement of the right great toe ulcer. Findings Sharp excisional debridement was performed measuring 5 cm x 3 cm. This included skin, subcutaneous fat, and some tendinous attachments. Upon unroofing the eschar, there was clearly visible bone exposed. The fracture distal phalanx was clearly visible within the wound bed. There was some tunneling proximally also and this was opened wide enough to allow for wound care. A culture swab was used for aerobic and anaerobic culture and sensitivity. The wound was then irrigated with sterile saline and packed with half-inch iodoform gauze. Description of Procedure Procedure as well as risks, benefits, and alternatives were discussed with the patient written consent was obtained and placed in chart prior to procedure. Patient was brought back to surgical suite. He was placed supine on operating table. Time-out was done to confirm patient and procedure. He was then intubated by the anesthesia department. His right foot was prepped and draped in sterile fashion using Betadine prep. 0.5% bupivacaine with epinephrine was infiltrated locally around the right great toe. There was some callused skin along the plantar surface of the toe that was carefully peeled away. The necrotic eschar on the surface of the dorsum of the great toe was sharply excised using a 15 blade scalpel. There was some purulent drainage that was cultured using a culture swab. The necrotic tissue was then sharply excised completely with the 15 blade scalpel. The excision extended all the way down to the surface of the distal phalanx. The debridement was carried out down all the way to healthy-appearing tissue. There was some tunneling underneath the skin along the proximal phalanx on the dorsal surface. This was opened using a 15 blade scalpel. Electrocautery was then used for hemostasis. No further necrotic tissue was identified. The wound was then irrigated with sterile saline and packed with half-inch iodoform gauze. Bone was clearly visible within the wound bed and the fractured and of the distal phalanx was visible as well. This will likely require amputation once infection has cleared up somewhat. 4 x 4 gauze was applied followed by a 2 in Kerlix wrap. The patient was then awakened from anesthesia, extubated, and transferred to recovery. Estimated Blood Loss 5 Packing Yes (Half-inch iodoform gauze) Pathology None sent Complications No immediate complications Condition Stable Disposition Floor [facility] Billing Surgery - Charge Forward: Surgery Billing
[2024-10-03 18:34] LABS: Glucose Point of Care 177 mg/dl (65-105)
[2024-10-03] MEDS: INSULIN HUMAN REGULAR (*BKC) 100 UNITS/ML 10 UNITS IV PUSH (18:37)
[2024-10-03] MEDS: PANTOPRAZOLE 40 MG TABLET PO (20:29)
[2024-10-03 22:53] LABS: Glucose Point of Care 182 mg/dl (65-105)
[2024-10-04] VITALS (9 sets, daily range): BP systolic 132–146; BP diastolic 60–70; PULSE 62–78; RESP 14–20; TEMP 36.1–36.6; O2SAT 96–98
[2024-10-04] MEDS: CEFEPIME 2 GM/NS 50 ML 2 GM/50 ML BAG IVPB ×2 (04:41→17:32)
[2024-10-04] MEDS: metroNIDAZOLE 500 MG/ISO 100ML 500 MG/100 ML BAG 100 MG IVPB ×3 (04:41→21:37)
[2024-10-04 07:35] LABS: Hematocrit 33.7 % (42.0-52.0); Hemoglobin 10.6 g/dL (14.0-18.0); Mean Corpuscular HGB Conc 31.5 g/dl (32-36); Mean Corpuscular Hemoglobin 30.2 pg (26-34); Mean Platelet Volume 10.4 fl (7.4-10.4); Platelet Count Result 471 k/mm3 (150-375); Red Blood Count 3.51 M/mm3 (4.6-6.20); Red Cell Distribution Width 13.7 % (11.5-14.5); White Blood Count 9.4 K/mm3 (4.5-10.0)
[2024-10-04 07:51] LABS: Alanine Aminotransferase 39 U/L (6-50); Alkaline Phosphatase 105 U/L (38-126); Anion Gap 12 mmol/L (4-12); Aspartate Amino Transferase 28 U/L (17-59); Bilirubin,Total 0.9 mg/dL (0.2-1.3); Blood Urea Nitrogen 69 mg/dL (9-20); Calcium 8.5 mg/dL (8.4-10.2); Carbon Dioxide 18 mmol/L (22-30); Chloride 111 mmol/L (98-107); Estimated CRCL calculation 31 ml/min; Estimated Glomerular Filt Rate 22; Glucose 161 mg/dL (65-110); Potassium 4.4 mmol/L (3.4-5.0); Sodium 141 mmol/L (137-145)
[2024-10-04 08:30] LABS: Glucose Point of Care 177 mg/dl (65-105)
--- NOTE | 2024-10-04 08:39 | P.PNIM_ITS ---
Progress Note: A&P Assessment and Plan (1) Diabetic foot ulcer: Code(s): E11.621 - Type 2 diabetes mellitus with foot ulcer; L97.509 - Non-pressure chronic ulcer of other part of unspecified foot with unspecified severity Status: Acute Assessment and Plan: patient reports injury to right great toe with worsening symptoms patient has severe diabetes and CAD with poor wound healing initial x-ray did show right great toe was also fractured * CRP elevate no WBC * Surgery consulted if debridement or amputation needed * blood cultures no growth today * wound culture ordered * NPO in case of possible procedure * IV cefepime, vancomycin and Flagyl * Will need close glucose control for any type of wound healing patient is a severely uncontrolled diabetic on high-dose insulin 10/04: * Day 1 post-op * Blood cultures NGTD * inoperative wound culture pending * continue with current ABX therapy will de-escalate with Culture and sensitivity * Plan is surgery 10/06 for amputation due to exposed fractured toe (2) Fracture of right great toe: Code(s): S92.401A - Displaced unspecified fracture of right great toe, initial encounter for closed fracture Status: Acute Assessment and Plan: * Nondisplaced fracture of lateral aspect of head of first proximal phalanx. * Nondisplaced stellate fracture of tuft of first distal phalanx. * Orthopedics consulted * Pain management * elevate at rest (3) Type 2 diabetes mellitus with diabetic polyneuropathy: Code(s): E11.42 - Type 2 diabetes mellitus with diabetic polyneuropathy Status: Acute Assessment and Plan: * Diabetic diet * Holding semaglutide * Hemoglobin A1c pending * Accuchecks ALLEGRA * SSI moderate dosing added * Patient is hard to control diabetic on several diabetic medication, and high- dose insulin started conversion to U 100 while hospitalized and adjust as need currently 65u/25u/10u * Continue Jardiance and Zetia (4) Diastolic dysfunction: Onset Date: 03/2022 Code(s): I51.89 - Other ill-defined heart diseases Status: Acute Assessment and Plan: * patient does not appear to be in exacerbation * resumed his home Bumex (5) Presence of aortocoronary bypass graft: Onset Date: 10/2017 Code(s): Z95.1 - Presence of aortocoronary bypass graft Status: Acute Assessment and Plan: * Continue Inderal, aspirin, Lipitor, an imdur, Atorvastatin (6) Chronic kidney disease, stage 3b: Code(s): N18.32 - Chronic kidney disease, stage 3b Status: Acute Assessment and Plan: Acute on chronic renal failure Baseline around mid 2.5 * CR 3.32 POA * Currently on vancomycin pharmacy to dose will need to deescalate cultures * Avoid nephrotoxic drugs. * Monitor antihypertensive drug therapy. * Avoid NSAIDs. * Routine CMP monitoring GFR. * Monitor electrolytes especially potassium. * Antibiotic doses depending on creatinine clearance. * Pharmacy does medications. Plan Code status: Full code per patient DVT prophylaxis: Lovenox on hold for possible surgery Stress ulcer prophylaxis: Protonix 40 daily PT/OT notes: Weight bearing as tolerated Disposition: Patient continues admission for cellulitis/diabetic foot ulcer of the great right toe as well as fracture patient poor candidate for wound healing surgery planned for amputation on on Friday 10/06. Time Spent With Patient Time with patient: 15 - 25 minutes Subjective Date/time seen: 10/04/24 08:39 Interval history: Patient is a 69 year old male who was admitted for further evaluation and treatment right great toe wound with consult to surgery for possible debridement or amputation 10/04/2024: Patient post debridement day [address], patient denying any pain to surgical site. Denied CP, SOB, N/V, fever, or chills with normal WBC. Review of Systems Review of Systems: 12 systems were reviewed and are negativ e except for as per HPI. All systems reviewed & are unremarkable except as noted in HPI and below Exam Narrative: * GENERAL: Alert and oriented x 3. No acute distress. * EYES: EOMI. No scleral icterus. PERRLA. * HEENT: Moist mucous membranes. * LUNGS: Clear to auscultation bilaterally. No accessory muscle use. * CARDIOVASCULAR: Regular rate and rhythm. No murmur. No JVD. S1-S2 * ABDOMEN: Soft, non tenderness and non-distended. No palpable masses. * EXTREMITIES: No edema. Right phalange 1st dressing in place, rest of the toes have erythema, dorsal surface of foot with erythema border marked * SKIN: No rashes or lesions. Skin warm, dry. * NEUROLOGIC: No focal neurological deficits. CN II-XII grossly intact Objective Data Vital Signs Vital Signs: Vital Signs - 24 hr 10/03/24 13:40 10/03/24 15:38 10/03/24 15:50 Temperature 98.7 F 97.3 F L Pulse Rate 65 60 65 Respiratory Rate 18 14 14 Blood Pressure 137/70 105/55 L 98/68 L Pulse Oximetry 98 99 98 Oxygen Delivery Room Air Simple Face Mask Simple Face Mask Oxygen Flow Rate 6 10 10/03/24 16:05 10/03/24 16:20 10/03/24 16:35 Temperature Pulse Rate 61 60 58 L Respiratory Rate 18 18 12 Blood Pressure 119/63 120/70 120/67 Pulse Oximetry 98 95 96 Oxygen Delivery Room Air Room Air Room Air Oxygen Flow Rate 10/03/24 16:50 10/03/24 16:59 10/03/24 17:14 Temperature Pulse Rate 58 L 84 63 Respiratory Rate 12 18 18 Blood Pressure 119/68 138/64 143/59 H Pulse Oximetry 96 93 98 Oxygen Delivery Room Air Oxygen Flow Rate 10/03/24 17:43 10/03/24 17:44 10/03/24 18:44 Temperature Pulse Rate 99 64 Respiratory Rate 18 18 Blood Pressure 129/79 129/66 Pulse Oximetry 98 98 98 Oxygen Delivery Room Air Oxygen Flow Rate 10/03/24 20:00 10/03/24 22:00 10/04/24 00:00 Temperature 97.9 F 97.9 F Pulse Rate 64 60 73 Respiratory Rate 18 18 14 Blood Pressure 135/82 132/60 Pulse Oximetry 98 98 96 Oxygen Delivery Room Air Oxygen Flow Rate 10/04/24 04:00 Temperature 97.6 F Pulse Rate 64 Respiratory Rate 16 Blood Pressure 146/66 H Pulse Oximetry 96 Oxygen Delivery Oxygen Flow Rate Intake/Output Intake/Output: Intake & Output 10/01/24 10/02/24 10/03/24 10/04/24 23:59 23:59 23:59 23:59 Intake Total 1050 1240 250 Balance 1050 1240 250 Meds/Results Medications: Active Medications Generic Name Dose Route Start Last Admin Trade Name Freq PRN Reason Stop Dose Admin Acetaminophen 650 mg 10/02/24 16:55 Acetaminophen 325 Mg Tablet PO Q4H PRN Mild Pain (1-3) or Fever Hydrocodone Bitart/Acetaminophen 1 tab 10/02/24 16:55 Hydrocodone/Acetaminophen (*Crx) 5-325 Mg Tablet PO Q4H PRN Pain Rated 4-6 Aspirin 81 mg 10/03/24 09:00 10/03/24 09:03 Aspirin 81 Mg Enteric Tablet PO 81 mg QAM TAMIKA Administration Atorvastatin Calcium 80 mg 10/03/24 09:00 10/03/24 09:02 Atorvastatin 40 Mg Tablet PO 80 mg DAILY TAMIKA Administration Bumetanide 0.5 mg 10/03/24 09:00 10/03/24 12:06 Bumetanide 0.5 Mg Tablet PO 0.5 mg DAILY TAMIKA Administration Buspirone HCl 10 mg 10/03/24 09:00 10/03/24 18:28 Buspirone Hcl 10 Mg Tablet PO 10 mg BID TAMIKA Administration Calcitriol 0.25 mcg 10/03/24 09:00 10/03/24 12:06 Calcitriol 0.25 Mcg Capsule PO 0.25 mcg [id number]@0900 TAMIKA Administration Dextrose 12.5 gm 10/02/24 17:35 Dextrose 50% 25 Gm/50 Ml Syringe IV PUSH PRN PRN Hypoglycemia Protocol Docusate Sodium 100 mg 10/03/24 09:00 10/03/24 18:29 Docusate Sodium 100 Mg Capsule PO 100 mg BID TAMIKA Administration Ezetimibe 10 mg 10/03/24 09:00 10/03/24 09:03 Ezetimibe 10 Mg Tablet PO 10 mg DAILY TAMIKA Administration Empagliflozin 25 mg 10/03/24 09:00 10/03/24 09:03 Empagliflozin 25 Mg Tablet BY MOUTH 25 mg QAM TAMIKA Administration Enoxaparin Sodium 40 mg 10/03/24 09:00 10/03/24 09:03 Enoxaparin 40 Mg/0.4 Ml Syringe SUB-Q 40 mg DAILY TAMIKA Administration Glucagon 1 mg 10/02/24 17:35 Glucagon For Inj 1 Mg Vial IM PRN PRN Hypoglycemia Protocol Glucose 15 gm 10/02/24 17:35 Glucose Oral Gel 15 Gm Of Glucse In 37.5 Gm Tube PO PRN PRN Hypoglycemia Protocol Cefepime HCl 2 gm in 50 mls @ 100 mls/hr 10/03/24 06:00 10/04/24 05:17 Maxipime 2 Gm/Ns 50 Ml IVPB Infused Q12H TAMIKA Infusion Metronidazole 500 mg in 100 mls @ 100 mls/hr 10/03/24 04:00 10/04/24 04:41 Flagyl 500 Mg/Iso Soln 100 Ml IVPB 100 mls/hr Q8H TAMIKA Administration Sodium Chloride 1,000 mls @ 125 mls/hr 10/02/24 16:55 10/03/24 18:29 Normal Saline Iv IV CONT Not Given .Q8H [facility] Dextrose 1,000 mls @ 100 mls/hr 10/02/24 17:35 Dextrose 5% 1,000 Ml IVPB PRN PRN Hypoglycemia Protocol Vancomycin HCl 1,500 mg in 500 mls @ 250 mls/hr 10/04/24 10:00 Vancomycin 1,500 Mg/Ns 500 Ml IVPB Q36H [facility] Insulin Aspart 3 - 6 units 10/03/24 08:00 10/03/24 18:32 Insulin Aspart (*Bkc) 100 Units/Ml SUB-Q Not Given TIDWM [facility] Protocol Insulin Aspart 1 - 3 units 10/02/24 21:00 10/03/24 23:02 Insulin Aspart (*Bkc) 100 Units/Ml SUB-Q Not Given HS [facility] Protocol Insulin Human Regular 65 units 10/03/24 09:55 10/03/24 11:31 Insulin Human Regular (*Bkc) 100 Units/Ml SUB-Q Not Given DAILY@0800 [facility] Insulin Human Regular 25 units 10/03/24 13:00 10/03/24 11:55 Insulin Human Regular (*Bkc) 100 Units/Ml SUB-Q Not Given DAILY@1200 [facility] Insulin Human Regular 10 units 10/03/24 17:00 10/03/24 18:37 Insulin Human Regular (*Bkc) 100 Units/Ml IV PUSH 10 units DAILY@1700 [facility] Administration Isosorbide Mononitrate 90 mg 10/03/24 09:00 10/03/24 09:02 Isosorbide Mononitrate 30 Mg Tab.Er.24h PO 90 mg DAILY [facility] Administration Morphine Sulfate 2 mg 10/02/24 16:55 Morphine Sulfate (*Crx) 2 Mg/Ml Inj IV PUSH Q2H PRN Pain Rated 7-10 Ondansetron HCl 4 mg 10/02/24 16:55 Ondansetron Inj 4 Mg/2 Ml Vial IV PUSH Q4H PRN Nausea Ondansetron HCl 4 mg 10/02/24 17:35 Ondansetron Inj 4 Mg/2 Ml Vial IV PUSH Q6H PRN Nausea And Vomiting Pantoprazole Sodium 40 mg 10/03/24 21:00 10/03/24 20:29 Pantoprazole 40 Mg Tablet PO 40 mg QHS TAMIKA Administration Propranolol HCl 80 mg 10/03/24 09:00 10/03/24 18:29 Propranolol Hcl 40 Mg Tablet PO 80 mg TID TAMIKA Administration Sertraline HCl 50 mg 10/02/24 23:10 10/03/24 09:03 Sertraline Hcl 50 Mg Tablet BY MOUTH 50 mg DAILY TAMIKA Administration Radiology Results: ITS Impressions Foot X-Ray 10/02/24 14:32 IMPRESSION: 1. Nondisplaced fracture of lateral aspect of head of first proximal phalanx. 2. Nondisplaced stellate fracture of tuft of first distal phalanx. 3. Mild polyarticular osteoarthritis. Labs Labs: Laboratory Results - last 24 hr 10/03/24 10/03/24 10/03/24 11:26 14:16 15:43 WBC RBC Hgb Hct MCV MCH MCHC RDW Plt Count MPV Sodium Potassium Chloride Carbon Dioxide Anion Gap BUN Creatinine Estim Creat Clear Calc Estimated GFR Glucose POC Capillary Glucose 212 H 203 H 182 H Calcium Total Bilirubin AST ALT Alkaline Phosphatase Total Protein Albumin 10/03/24 10/03/24 10/04/24 18:31 22:11 06:41 WBC 9.4 RBC 3.51 L Hgb 10.6 L Hct 33.7 L MCV 96.0 MCH 30.2 MCHC 31.5 L RDW 13.7 Plt Count 471 H MPV 10.4 Sodium 141 Potassium 4.4 Chloride 111 H Carbon Dioxide 18 L Anion Gap 12 BUN 69 H Creatinine 2.90 H Estim Creat Clear Calc 31 Estimated GFR 22 L Glucose 161 H POC Capillary Glucose 177 H 182 H Calcium 8.5 Total Bilirubin 0.9 AST 28 ALT 39 Alkaline Phosphatase 105 Total Protein 7.0 Albumin 3.0 L 10/04/24 08:08 WBC RBC Hgb Hct MCV MCH MCHC RDW Plt Count MPV Sodium Potassium Chloride Carbon Dioxide Anion Gap BUN Creatinine Estim Creat Clear Calc Estimated GFR Glucose POC Capillary Glucose 177 H Calcium Total Bilirubin AST ALT Alkaline Phosphatase Total Protein Albumin Quality VTE Prophylaxis VTE prophylaxis: mechanical ordered and pharmacologic ordered -Patient's previous records reviewed on admission -ER notes reviewed in detail on admission -discussed all findings and current treatment plan with patient/Family/POA -Consultations reviewed for recommendations -Patient's disposition for safe discharge discussed with rn case manager hospice Dictation performed by [employer] direct speech recognition software, therefore [employer] workers variants and typographical errors may occur. Hospitalist MIPS Advance Care Plan I have confirmed that the patient's Advanced Care Plan is present, code status is documented, or surrogate decision maker is listed in patient medical record.: Yes Medication Reconciliation I have utilized all available resources to obtain, update and review the patients current medications (includes all prescriptions, OTC, herbals, cannabis, and nutritional supplements).: Yes The patient is not eligible for med reconciliation; the patient is in a emergent medical situation where delaying treatment would jeopardize the patients health.: No
[2024-10-04] MEDS: VANCOMYCIN 1,500 MG/NS 500 ML 1,500 MG/500 ML BAG 250 MG IVPB (09:41)
[2024-10-04] MEDS: ENOXAPARIN 40 MG/0.4 ML SYRINGE SUB-Q (09:56)
[2024-10-04] MEDS: ATORVASTATIN 40 MG TABLET 80 MG PO (09:56)
[2024-10-04] MEDS: busPIRone HCL 10 MG TABLET PO ×2 (09:57→17:32)
[2024-10-04] MEDS: DOCUSATE SODIUM 100 MG CAPSULE PO ×2 (09:57→17:32)
[2024-10-04] MEDS: ASPIRIN 81 MG ENTERIC TABLET PO (09:57)
[2024-10-04] MEDS: PROPRANOLOL HCL 40 MG TABLET 80 MG PO ×3 (09:57→17:32)
[2024-10-04] MEDS: EMPAGLIFLOZIN 25 MG TABLET BY MOUTH (09:57)
[2024-10-04] MEDS: EZETIMIBE 10 MG TABLET PO (09:57)
[2024-10-04] MEDS: BUMETANIDE 0.5 MG TABLET PO (09:57)
[2024-10-04] MEDS: SERTRALINE HCL 50 MG TABLET BY MOUTH (09:57)
[2024-10-04] MEDS: INSULIN HUMAN REGULAR (*BKC) 100 UNITS/ML 65 UNITS SUB-Q (09:59)
[2024-10-04] MEDS: ISOSORBIDE MONONITRATE 30 MG TAB.ER.24H 90 MG PO (10:04)
[2024-10-04 12:01] LABS: Glucose Point of Care 158 mg/dl (65-105)
[2024-10-04] MEDS: INSULIN HUMAN REGULAR (*BKC) 100 UNITS/ML 25 UNITS SUB-Q (12:24)
--- NOTE | 2024-10-04 12:52 | PM.PNGS ---
Progress Note: A&P Assessment and Plan (1) Diabetic foot ulcer: Code(s): E11.621 - Type 2 diabetes mellitus with foot ulcer; L97.509 - Non-pressure chronic ulcer of other part of unspecified foot with unspecified severity Status: Acute Assessment and Plan: Discussed findings of exposed fractured bone within wound bed once necrotic tissue was debrided. Will ultimately need right great toe ray amputation. Continue IV antibiotics and local wound care over weekend. Will plan for right great toe ray amputation on Sunday. (2) Cellulitis of great toe, right: Code(s): L03.031 - Cellulitis of right toe Status: Acute (3) Fracture of right great toe: Code(s): S92.401A - Displaced unspecified fracture of right great toe, initial encounter for closed fracture Status: Acute (4) Acute on chronic renal failure: Code(s): N17.9 - Acute kidney failure, unspecified; N18.9 - Chronic kidney disease, unspecified Status: Acute (5) Type 2 diabetes mellitus with diabetic polyneuropathy: Code(s): E11.42 - Type 2 diabetes mellitus with diabetic polyneuropathy Status: Acute (6) Long-term insulin use: Code(s): Z79.4 - disposition clerk (current) use of insulin Status: Acute Subjective Subjective Date/Time Seen: 10/04/24 12:52 Interval history: Doing well on POD#1. Pain controlled. No fevers. Exam Extrem: Other: Right great toe dressing dry. Minimal erythema on distal dorsal foot. Objective Data Vital Signs Vital Signs: Vital Signs - 24 hr 10/03/24 13:40 10/03/24 15:38 10/03/24 15:50 Temperature 98.7 F 97.3 F L Pulse Rate 65 60 65 Respiratory Rate 18 14 14 Blood Pressure 137/70 105/55 L 98/68 L Pulse Oximetry 98 99 98 Oxygen Delivery Room Air Simple Face Mask Simple Face Mask Oxygen Flow Rate 6 10 10/03/24 16:05 10/03/24 16:20 10/03/24 16:35 Temperature Pulse Rate 61 60 58 L Respiratory Rate 18 18 12 Blood Pressure 119/63 120/70 120/67 Pulse Oximetry 98 95 96 Oxygen Delivery Room Air Room Air Room Air Oxygen Flow Rate 10/03/24 16:50 10/03/24 16:59 10/03/24 17:14 Temperature Pulse Rate 58 L 84 63 Respiratory Rate 12 18 18 Blood Pressure 119/68 138/64 143/59 H Pulse Oximetry 96 93 98 Oxygen Delivery Room Air Oxygen Flow Rate 10/03/24 17:43 10/03/24 17:44 10/03/24 18:44 Temperature Pulse Rate 99 64 Respiratory Rate 18 18 Blood Pressure 129/79 129/66 Pulse Oximetry 98 98 98 Oxygen Delivery Room Air Oxygen Flow Rate 10/03/24 20:00 10/03/24 22:00 10/04/24 00:00 Temperature 97.9 F 97.9 F Pulse Rate 64 60 73 Respiratory Rate 18 18 14 Blood Pressure 135/82 132/60 Pulse Oximetry 98 98 96 Oxygen Delivery Room Air Oxygen Flow Rate 10/04/24 04:00 10/04/24 09:57 10/04/24 12:24 Temperature 97.6 F Pulse Rate 64 68 74 Respiratory Rate 16 Blood Pressure 146/66 H Pulse Oximetry 96 Oxygen Delivery Oxygen Flow Rate Intake/Output Intake/Output: Intake & Output 10/01/24 10/02/24 10/03/24 10/04/24 23:59 23:59 23:59 23:59 Intake Total 1050 1240 850 Balance 1050 1240 850 Meds/Results Medications: Active Medications Generic Name Dose Route Start Last Admin Trade Name Freq PRN Reason Stop Dose Admin Acetaminophen 650 mg 10/02/24 16:55 Acetaminophen 325 Mg Tablet PO Q4H PRN Mild Pain (1-3) or Fever Hydrocodone Bitart/Acetaminophen 1 tab 10/02/24 16:55 Hydrocodone/Acetaminophen (*Crx) 5-325 Mg Tablet PO Q4H PRN Pain Rated 4-6 Aspirin 81 mg 10/03/24 09:00 10/04/24 09:57 Aspirin 81 Mg Enteric Tablet PO 81 mg QAM [facility]AMIKA Administration Atorvastatin Calcium 80 mg 10/03/24 09:00 10/04/24 09:56 Atorvastatin 40 Mg Tablet PO 80 mg DAILY [facility] Administration Bumetanide 0.5 mg 10/03/24 09:00 10/04/24 09:57 Bumetanide 0.5 Mg Tablet PO 0.5 mg DAILY [facility] Administration Buspirone HCl 10 mg 10/03/24 09:00 10/04/24 09:57 Buspirone Hcl 10 Mg Tablet PO 10 mg BID [facility] Administration Calcitriol 0.25 mcg 10/03/24 09:00 10/03/24 12:06 Calcitriol 0.25 Mcg Capsule PO 0.25 mcg [id number] [facility] Administration Dextrose 12.5 gm 10/02/24 17:35 Dextrose 50% 25 Gm/50 Ml Syringe IV PUSH PRN PRN Hypoglycemia Protocol Docusate Sodium 100 mg 10/03/24 09:00 10/04/24 09:57 Docusate Sodium 100 Mg Capsule PO 100 mg BID [facility]A Administration Ezetimibe 10 mg 10/03/24 09:00 10/04/24 09:57 Ezetimibe 10 Mg Tablet PO 10 mg DAILY [facility] Administration Empagliflozin 25 mg 10/03/24 09:00 10/04/24 09:57 Empagliflozin 25 Mg Tablet BY MOUTH 25 mg QAM T[facility]A Administration Enoxaparin Sodium 40 mg 10/03/24 09:00 10/04/24 09:56 Enoxaparin 40 Mg/0.4 Ml Syringe SUB-Q 40 mg DAILY [facility] Administration Glucagon 1 mg 10/02/24 17:35 Glucagon For Inj 1 Mg Vial IM PRN PRN Hypoglycemia Protocol Glucose 15 gm 10/02/24 17:35 Glucose Oral Gel 15 Gm Of Glucse In 37.5 Gm Tube PO PRN PRN Hypoglycemia Protocol Cefepime HCl 2 gm in 50 mls @ 100 mls/hr 10/03/24 06:00 10/04/24 05:17 Maxipime 2 Gm/Ns 50 Ml IVPB Infused Q12H [facility] Infusion Metronidazole 500 mg in 100 mls @ 100 mls/hr 10/03/24 04:00 10/04/24 12:25 Flagyl 500 Mg/Iso Soln 100 Ml IVPB 100 mls/hr Q8H [facility] Administration Sodium Chloride 1,000 mls @ 125 mls/hr 10/02/24 16:55 10/03/24 18:29 Normal Saline Iv IV CONT Not Given .Q8H T[facility]A Dextrose 1,000 mls @ 100 mls/hr 10/02/24 17:35 Dextrose 5% 1,000 Ml IVPB PRN PRN Hypoglycemia Protocol Vancomycin HCl 1,500 mg in 500 mls @ 250 mls/hr 10/04/24 10:00 10/04/24 11:41 Vancomycin 1,500 Mg/Ns 500 Ml IVPB Infused Q36H [facility] Infusion Insulin Aspart 3 - 6 units 10/03/24 08:00 10/04/24 12:05 Insulin Aspart (*Bkc) 100 Units/Ml SUB-Q Not Given TIDWM [facility] Protocol Insulin Aspart 1 - 3 units 10/02/24 21:00 10/03/24 23:02 Insulin Aspart (*Bkc) 100 Units/Ml SUB-Q Not Given HS [facility] Protocol Insulin Human Regular 65 units 10/03/24 09:55 10/04/24 09:59 Insulin Human Regular (*Bkc) 100 Units/Ml SUB-Q 65 units DAILY@0800 [facility] Administration Insulin Human Regular 25 units 10/03/24 13:00 10/04/24 12:24 Insulin Human Regular (*Bkc) 100 Units/Ml SUB-Q 25 units DAILY@1200 [facility] Administration Insulin Human Regular 10 units 10/03/24 17:00 10/03/24 18:37 Insulin Human Regular (*Bkc) 100 Units/Ml IV PUSH 10 units DAILY@1700 [facility] Administration Isosorbide Mononitrate 90 mg 10/03/24 09:00 10/04/24 10:04 Isosorbide Mononitrate 30 Mg Tab.Er.24h PO 90 mg DAILY [facility] Administration Morphine Sulfate 2 mg 10/02/24 16:55 Morphine Sulfate (*Crx) 2 Mg/Ml Inj IV PUSH Q2H PRN Pain Rated 7-10 Ondansetron HCl 4 mg 10/02/24 16:55 Ondansetron Inj 4 Mg/2 Ml Vial IV PUSH Q4H PRN Nausea Ondansetron HCl 4 mg 10/02/24 17:35 Ondansetron Inj 4 Mg/2 Ml Vial IV PUSH Q6H PRN Nausea And Vomiting Pantoprazole Sodium 40 mg 10/03/24 21:00 10/03/24 20:29 Pantoprazole 40 Mg Tablet PO 40 mg QHS [facility] Administration Propranolol HCl 80 mg 10/03/24 09:00 10/04/24 12:24 Propranolol Hcl 40 Mg Tablet PO 80 mg TID [facility] Administration Sertraline HCl 50 mg 10/02/24 23:10 10/04/24 09:57 Sertraline Hcl 50 Mg Tablet BY MOUTH 50 mg DAILY [facility] Administration Radiology Results: ITS Impressions Foot X-Ray 10/02/24 14:32 IMPRESSION: 1. Nondisplaced fracture of lateral aspect of head of first proximal phalanx. 2. Nondisplaced stellate fracture of tuft of first distal phalanx. 3. Mild polyarticular osteoarthritis. Labs Labs: Laboratory Results - last 24 hr 10/03/24 10/03/24 10/03/24 14:16 15:43 18:31 WBC RBC Hgb Hct MCV MCH MCHC RDW Plt Count MPV Sodium Potassium Chloride Carbon Dioxide Anion Gap BUN Creatinine Estim Creat Clear Calc Estimated GFR Glucose POC Capillary Glucose 203 H 182 H 177 H Calcium Total Bilirubin AST ALT Alkaline Phosphatase Total Protein Albumin 10/03/24 10/04/24 10/04/24 22:11 06:41 08:08 WBC 9.4 RBC 3.51 L Hgb 10.6 L Hct 33.7 L MCV 96.0 MCH 30.2 MCHC 31.5 L RDW 13.7 Plt Count 471 H MPV 10.4 Sodium 141 Potassium 4.4 Chloride 111 H Carbon Dioxide 18 L Anion Gap 12 BUN 69 H Creatinine 2.90 H Estim Creat Clear Calc 31 Estimated GFR 22 L Glucose 161 H POC Capillary Glucose 182 H 177 H Calcium 8.5 Total Bilirubin 0.9 AST 28 ALT 39 Alkaline Phosphatase 105 Total Protein 7.0 Albumin 3.0 L 10/04/24 11:54 WBC RBC Hgb Hct MCV MCH MCHC RDW Plt Count MPV Sodium Potassium Chloride Carbon Dioxide Anion Gap BUN Creatinine Estim Creat Clear Calc Estimated GFR Glucose POC Capillary Glucose 158 H Calcium Total Bilirubin AST ALT Alkaline Phosphatase Total Protein Albumin
--- NOTE | 2024-10-04 14:06 | PC.NURSE ---
Patient resting in bed. He has eaten breakfast. Patient up to the BSC without difficulty and times one assist. Patient very calm and cooperative. Surgical dressing CDI on R foot. No complaints of pain at this time. Ice water given.
[2024-10-04 16:50] LABS: Glucose Point of Care 71 mg/dl (65-105)
[2024-10-04 16:50] LABS: Glucose Point of Care 69 mg/dl (65-105)
[2024-10-04 18:32] LABS: Glucose Point of Care 77 mg/dl (65-105)
--- NOTE | 2024-10-04 20:36 | PM.EVENT ---
Event Note Event Note Event Note: Nursing staff called patient's glucose was 63. On review of the chart patient's blood glucoses have been in the 70s all day. He ate 50% of his lunch and 100% of his dinner. His evening mealtime insulin had been held by nursing staff. The patient reports he frequently gets hypoglycemic at night. I have decreased the patient morning regular from 65 units to 55 units. The patient is receiving a snack and has hypoglycemia protocol in place.
[2024-10-04 21:12] LABS: Glucose Point of Care 63 mg/dl (65-105)
[2024-10-04] MEDS: PANTOPRAZOLE 40 MG TABLET PO (21:37)
[2024-10-05] VITALS (7 sets, daily range): BP systolic 123–178; BP diastolic 70–96; PULSE 61–72; RESP 16–18; TEMP 36.2–36.7; O2SAT 98–100
[2024-10-05] MEDS: metroNIDAZOLE 500 MG/ISO 100ML 500 MG/100 ML BAG 100 MG IVPB ×3 (03:09→20:21)
[2024-10-05] MEDS: CEFEPIME 2 GM/NS 50 ML 2 GM/50 ML BAG IVPB ×2 (06:03→17:18)
[2024-10-05 07:12] LABS: Hematocrit 34.5 % (42.0-52.0); Hemoglobin 10.8 g/dL (14.0-18.0); Mean Corpuscular HGB Conc 31.3 g/dl (32-36); Mean Corpuscular Hemoglobin 30.2 pg (26-34); Mean Corpuscular Volume 96.4 fl (80-100); Mean Platelet Volume 10.4 fl (7.4-10.4); Platelet Count Result 500 k/mm3 (150-375); Red Blood Count 3.58 M/mm3 (4.6-6.20); Red Cell Distribution Width 13.9 % (11.5-14.5); White Blood Count 9.6 K/mm3 (4.5-10.0)
[2024-10-05 07:31] LABS: Alanine Aminotransferase 43 U/L (6-50); Albumin Level 2.9 g/dL (3.5-5.1); Alkaline Phosphatase 107 U/L (38-126); Anion Gap 11 mmol/L (4-12); Aspartate Amino Transferase 44 U/L (17-59); Bilirubin,Total 0.8 mg/dL (0.2-1.3); Blood Urea Nitrogen 67 mg/dL (9-20); Calcium 8.3 mg/dL (8.4-10.2); Carbon Dioxide 18 mmol/L (22-30); Chloride 112 mmol/L (98-107); Estimated CRCL calculation 29 ml/min; Estimated Glomerular Filt Rate 20; Glucose 181 mg/dL (65-110); Potassium 4.7 mmol/L (3.4-5.0); Sodium 141 mmol/L (137-145)
[2024-10-05 08:00] LABS: Glucose Point of Care 202 mg/dl (65-105)
[2024-10-05] MEDS: INSULIN ASPART (*BKC) 100 UNITS/ML SUB-Q (08:19)
[2024-10-05] MEDS: INSULIN HUMAN REGULAR (*BKC) 100 UNITS/ML 55 UNITS SUB-Q (08:20)
[2024-10-05] MEDS: ONDANSETRON INJ 4 MG/2 ML VIAL IV PUSH (08:22)
[2024-10-05] MEDS: ENOXAPARIN 40 MG/0.4 ML SYRINGE SUB-Q (08:27)
[2024-10-05] MEDS: BUMETANIDE 0.5 MG TABLET PO (08:29)
[2024-10-05] MEDS: DOCUSATE SODIUM 100 MG CAPSULE PO ×2 (08:30→20:22)
[2024-10-05] MEDS: ASPIRIN 81 MG ENTERIC TABLET PO (08:30)
[2024-10-05] MEDS: EZETIMIBE 10 MG TABLET PO (08:30)
[2024-10-05] MEDS: SERTRALINE HCL 50 MG TABLET BY MOUTH (08:30)
[2024-10-05] MEDS: ISOSORBIDE MONONITRATE 30 MG TAB.ER.24H 90 MG PO (08:30)
[2024-10-05] MEDS: PROPRANOLOL HCL 40 MG TABLET 80 MG PO ×3 (08:31→17:17)
[2024-10-05] MEDS: busPIRone HCL 10 MG TABLET PO ×2 (08:31→17:18)
[2024-10-05] MEDS: ATORVASTATIN 40 MG TABLET 80 MG PO (08:32)
[2024-10-05] MEDS: EMPAGLIFLOZIN 25 MG TABLET BY MOUTH (08:32)
--- NOTE | 2024-10-05 08:51 | P.PNIM_ITS ---
Progress Note: A&P Assessment and Plan (1) Diabetic foot ulcer: Code(s): E11.621 - Type 2 diabetes mellitus with foot ulcer; L97.509 - Non-pressure chronic ulcer of other part of unspecified foot with unspecified severity Status: Acute Assessment and Plan: patient reports injury to right great toe with worsening symptoms patient has severe diabetes and CAD with poor wound healing initial x-ray did show right great toe was also fractured * CRP elevate no WBC * Surgery consulted if debridement or amputation needed * blood cultures no growth today * wound culture ordered * NPO in case of possible procedure * IV cefepime, vancomycin and Flagyl * Will need close glucose control for any type of wound healing patient is a severely uncontrolled diabetic on high-dose insulin 10/04: * Day 1 post-op * Blood cultures NGTD * inoperative wound culture pending * continue with current ABX therapy will de-escalate with Culture and sensitivity * Plan is surgery 10/06 for amputation due to exposed fractured toe 10/05: * Postop day 2 * normal wbc no fever * blood cultures NGTD * wound culture still pending * surgery tomorrow hold morning Lovenox 10/06 (2) Fracture of right great toe: Code(s): S92.401A - Displaced unspecified fracture of right great toe, initial encounter for closed fracture Status: Acute Assessment and Plan: * Nondisplaced fracture of lateral aspect of head of first proximal phalanx. * Nondisplaced stellate fracture of tuft of first distal phalanx. * Orthopedics consulted * Pain management * elevate at rest (3) Type 2 diabetes mellitus with diabetic polyneuropathy: Code(s): E11.42 - Type 2 diabetes mellitus with diabetic polyneuropathy Status: Acute Assessment and Plan: * Diabetic diet * Holding semaglutide * Hemoglobin A1c pending * Accuchecks DAVIDS * SSI moderate dosing added * Patient is hard to control diabetic on several diabetic medication, and high- dose insulin started conversion to U 100 while hospitalized and adjust as need currently 65u/25u/10u * Continue Jardiance and Zetia (4) Diastolic dysfunction: Onset Date: 03/2022 Code(s): I51.89 - Other ill-defined heart diseases Status: Acute Assessment and Plan: * patient does not appear to be in exacerbation * resumed his home Bumex (5) Presence of aortocoronary bypass graft: Onset Date: 10/2017 Code(s): Z95.1 - Presence of aortocoronary bypass graft Status: Acute Assessment and Plan: * Continue Inderal, aspirin, Lipitor, an imdur, Atorvastatin (6) Chronic kidney disease, stage 3b: Code(s): N18.32 - Chronic kidney disease, stage 3b Status: Acute Assessment and Plan: Acute on chronic renal failure Baseline around mid 2.5 * CR 3.32 POA * Currently on vancomycin pharmacy to dose will need to deescalate cultures * Avoid nephrotoxic drugs. * Monitor antihypertensive drug therapy. * Avoid NSAIDs. * Routine CMP monitoring GFR. * Monitor electrolytes especially potassium. * Antibiotic doses depending on creatinine clearance. * Pharmacy does medications. Plan Code status: Full code per patient DVT prophylaxis: Lovenox on hold for possible surgery Stress ulcer prophylaxis: Protonix 40 daily PT/OT notes: Weight bearing as tolerated Disposition: Patient continues admission for cellulitis/diabetic foot ulcer of the great right toe as well as fracture patient poor candidate for wound healing surgery planned for amputation on on Friday 10/06. Time Spent With Patient Time with patient: 15 - 25 minutes Subjective Date/time seen: 10/05/24 08:51 Interval history: Patient is a 69 year old male who was admitted for further evaluation and treatment right great toe wound with consult to surgery for possible debridement or amputation 10/05/2024: Patient post debridement day [address], patient denying any pain to surgical site. Had an episode of hypoglycemia last night Insulin reduced BS 202 this am. Patient with mild constipation add stool softener. No other complaints or concerns Review of Systems Review of Systems: 12 systems were reviewed and are negativ e except for as per HPI. All systems reviewed & are unremarkable except as noted in HPI and below Exam Narrative: * GENERAL: Alert and oriented x 3. No acute distress. * EYES: EOMI. No scleral icterus. PERRLA. * HEENT: Moist mucous membranes. * LUNGS: Clear to auscultation bilaterally. No accessory muscle use. * CARDIOVASCULAR: Regular rate and rhythm. No murmur. No JVD. S1-S2 * ABDOMEN: Soft, non tenderness and non-distended. No palpable masses. * EXTREMITIES: No edema. Right phalange 1st dressing in place, rest of the toes have erythema, dorsal surface of foot with erythema border marked * SKIN: No rashes or lesions. Skin warm, dry. * NEUROLOGIC: No focal neurological deficits. CN II-XII grossly intact Objective Data Vital Signs Vital Signs: Vital Signs - 24 hr 10/04/24 09:57 10/04/24 12:00 10/04/24 12:24 Temperature 97.4 F L Pulse Rate 68 78 74 Respiratory Rate 20 Blood Pressure 144/64 H Pulse Oximetry 98 Oxygen Delivery 10/04/24 16:00 10/04/24 17:32 10/04/24 20:00 Temperature 97.5 F L Pulse Rate 76 70 70 Respiratory Rate 20 20 Blood Pressure 140/60 Pulse Oximetry 98 98 Oxygen Delivery Room Air 10/04/24 20:00 10/05/24 04:00 10/05/24 08:31 Temperature 97.0 F L 98.0 F Pulse Rate 62 72 69 Respiratory Rate 18 18 Blood Pressure 134/70 178/96 H Pulse Oximetry 98 98 Oxygen Delivery Intake/Output Intake/Output: Intake & Output 10/02/24 10/03/24 10/04/24 10/05/24 23:59 23:59 23:59 23:59 Intake Total 1050 1240 1820 450 Output Total 400 Balance 1050 1240 1420 450 Meds/Results Medications: Active Medications Generic Name Dose Route Start Last Admin Trade Name Freq PRN Reason Stop Dose Admin Acetaminophen 650 mg 10/02/24 16:55 Acetaminophen 325 Mg Tablet PO Q4H PRN Mild Pain (1-3) or Fever Hydrocodone Bitart/Acetaminophen 1 tab 10/02/24 16:55 Hydrocodone/Acetaminophen (*Crx) 5-325 Mg Tablet PO Q4H PRN Pain Rated 4-6 Aspirin 81 mg 10/03/24 09:00 10/05/24 08:30 Aspirin 81 Mg Enteric Tablet PO 81 mg QAM TAMIKA Administration Atorvastatin Calcium 80 mg 10/03/24 09:00 10/05/24 08:32 Atorvastatin 40 Mg Tablet PO 80 mg DAILY [facility] Administration Bumetanide 0.5 mg 10/03/24 09:00 10/05/24 08:29 Bumetanide 0.5 Mg Tablet PO 0.5 mg DAILY [facility] Administration Buspirone HCl 10 mg 10/03/24 09:00 10/05/24 08:31 Buspirone Hcl 10 Mg Tablet PO 10 mg BID T[facility]IKA Administration Calcitriol 0.25 mcg 10/03/24 09:00 10/03/24 12:06 Calcitriol 0.25 Mcg Capsule PO 0.25 mcg [id number]@0900 [facility] Administration Dextrose 12.5 gm 10/02/24 17:35 Dextrose 50% 25 Gm/50 Ml Syringe IV PUSH PRN PRN Hypoglycemia Protocol Docusate Sodium 100 mg 10/03/24 09:00 10/05/24 08:30 Docusate Sodium 100 Mg Capsule PO 100 mg BID TAMIKA Administration Ezetimibe 10 mg 10/03/24 09:00 10/05/24 08:30 Ezetimibe 10 Mg Tablet PO 10 mg DAILY [facility] Administration Empagliflozin 25 mg 10/03/24 09:00 10/05/24 08:32 Empagliflozin 25 Mg Tablet BY MOUTH 25 mg QAM T[facility]IKA Administration Enoxaparin Sodium 40 mg 10/03/24 09:00 10/05/24 08:27 Enoxaparin 40 Mg/0.4 Ml Syringe SUB-Q 40 mg DAILY [facility] Administration Glucagon 1 mg 10/02/24 17:35 Glucagon For Inj 1 Mg Vial IM PRN PRN Hypoglycemia Protocol Glucose 15 gm 10/02/24 17:35 Glucose Oral Gel 15 Gm Of Glucse In 37.5 Gm Tube PO PRN PRN Hypoglycemia Protocol Cefepime HCl 2 gm in 50 mls @ 100 mls/hr 10/03/24 06:00 10/05/24 06:33 Maxipime 2 Gm/Ns 50 Ml IVPB Infused Q12H [facility] Infusion Metronidazole 500 mg in 100 mls @ 100 mls/hr 10/03/24 04:00 10/05/24 04:09 Flagyl 500 Mg/Iso Soln 100 Ml IVPB Infused Q8H [facility] Infusion Sodium Chloride 1,000 mls @ 125 mls/hr 10/02/24 16:55 10/03/24 18:29 Normal Saline Iv IV CONT Not Given .Q8H TAMIKA Dextrose 1,000 mls @ 100 mls/hr 10/02/24 17:35 Dextrose 5% 1,000 Ml IVPB PRN PRN Hypoglycemia Protocol Vancomycin HCl 1,500 mg in 500 mls @ 250 mls/hr 10/04/24 10:00 10/04/24 11:41 Vancomycin 1,500 Mg/Ns 500 Ml IVPB Infused Q36H [facility] Infusion Insulin Aspart 3 - 6 units 10/03/24 08:00 10/05/24 08:19 Insulin Aspart (*Bkc) 100 Units/Ml SUB-Q 3 units TIDWM [facility] Administration Protocol Insulin Aspart 1 - 3 units 10/02/24 21:00 10/04/24 21:37 Insulin Aspart (*Bkc) 100 Units/Ml SUB-Q Not Given HS [facility] Protocol Insulin Human Regular 25 units 10/03/24 13:00 10/04/24 12:24 Insulin Human Regular (*Bkc) 100 Units/Ml SUB-Q 25 units DAILY@1200 [facility] Administration Insulin Human Regular 10 units 10/03/24 17:00 10/04/24 18:31 Insulin Human Regular (*Bkc) 100 Units/Ml IV PUSH Not Given DAILY@1700 [facility] Insulin Human Regular 55 units 10/05/24 08:00 10/05/24 08:20 Insulin Human Regular (*Bkc) 100 Units/Ml SUB-Q 55 units DAILY@0800 [facility] Administration Isosorbide Mononitrate 90 mg 10/03/24 09:00 10/05/24 08:30 Isosorbide Mononitrate 30 Mg Tab.Er.24h PO 90 mg DAILY [facility] Administration Morphine Sulfate 2 mg 10/02/24 16:55 Morphine Sulfate (*Crx) 2 Mg/Ml Inj IV PUSH Q2H PRN Pain Rated 7-10 Ondansetron HCl 4 mg 10/02/24 16:55 10/05/24 08:22 Ondansetron Inj 4 Mg/2 Ml Vial IV PUSH 4 mg Q4H PRN Administration Nausea Ondansetron HCl 4 mg 10/02/24 17:35 Ondansetron Inj 4 Mg/2 Ml Vial IV PUSH Q6H PRN Nausea And Vomiting Pantoprazole Sodium 40 mg 10/03/24 21:00 10/04/24 21:37 Pantoprazole 40 Mg Tablet PO 40 mg QHS [facility] Administration Propranolol HCl 80 mg 10/03/24 09:00 10/05/24 08:31 Propranolol Hcl 40 Mg Tablet PO 80 mg TID [facility] Administration Sertraline HCl 50 mg 10/02/24 23:10 10/05/24 08:30 Sertraline Hcl 50 Mg Tablet BY MOUTH 50 mg DAILY [facility] Administration Radiology Results: ITS Impressions Foot X-Ray 10/02/24 14:32 IMPRESSION: 1. Nondisplaced fracture of lateral aspect of head of first proximal phalanx. 2. Nondisplaced stellate fracture of tuft of first distal phalanx. 3. Mild polyarticular osteoarthritis. Labs Labs: Laboratory Results - last 24 hr 10/04/24 10/04/24 10/04/24 11:54 16:28 16:44 WBC RBC Hgb Hct MCV MCH MCHC RDW Plt Count MPV Sodium Potassium Chloride Carbon Dioxide Anion Gap BUN Creatinine Estim Creat Clear Calc Estimated GFR Glucose POC Capillary Glucose 158 H 69 71 Calcium Total Bilirubin AST ALT Alkaline Phosphatase Total Protein Albumin 10/04/24 10/04/24 10/05/24 18:29 20:15 06:37 WBC 9.6 RBC 3.58 L Hgb 10.8 L Hct 34.5 L MCV 96.4 MCH 30.2 MCHC 31.3 L RDW 13.9 Plt Count 500 H MPV 10.4 Sodium 141 Potassium 4.7 Chloride 112 H Carbon Dioxide 18 L Anion Gap 11 BUN 67 H Creatinine 3.14 H Estim Creat Clear Calc 29 Estimated GFR 20 L Glucose 181 H POC Capillary Glucose 77 63 L Calcium 8.3 L Total Bilirubin 0.8 AST 44 ALT 43 Alkaline Phosphatase 107 Total Protein 7.0 Albumin 2.9 L 10/05/24 07:56 WBC RBC Hgb Hct MCV MCH MCHC RDW Plt Count MPV Sodium Potassium Chloride Carbon Dioxide Anion Gap BUN Creatinine Estim Creat Clear Calc Estimated GFR Glucose POC Capillary Glucose 202 H Calcium Total Bilirubin AST ALT Alkaline Phosphatase Total Protein Albumin Quality VTE Prophylaxis VTE prophylaxis: mechanical ordered and pharmacologic ordered -Patient's previous records reviewed on admission -ER notes reviewed in detail on admission -discussed all findings and current treatment plan with patient/Family/POA -Consultations reviewed for recommendations -Patient's disposition for safe discharge discussed with dependency case manager Dictation performed by [employer] direct speech recognition software, therefore countersinker balance screw hole variants and typographical errors may occur. Hospitalist MIPS Advance Care Plan I have confirmed that the patient's Advanced Care Plan is present, code status is documented, or surrogate decision maker is listed in patient medical record.: Yes Medication Reconciliation I have utilized all available resources to obtain, update and review the patients current medications (includes all prescriptions, OTC, herbals, cannabis, and nutritional supplements).: Yes The patient is not eligible for med reconciliation; the patient is in a emergent medical situation where delaying treatment would jeopardize the patients health.: No
[2024-10-05 11:55] LABS: Glucose Point of Care 134 mg/dl (65-105)
[2024-10-05] MEDS: INSULIN HUMAN REGULAR (*BKC) 100 UNITS/ML 25 UNITS SUB-Q (12:14)
--- NOTE | 2024-10-05 15:44 | P.PNGS_ITS ---
Progress Note: A&P Assessment and Plan (1) Diabetic foot ulcer: Code(s): E11.621 - Type 2 diabetes mellitus with foot ulcer; L97.509 - Non-pressure chronic ulcer of other part of unspecified foot with unspecified severity Status: Acute Assessment and Plan: * Cellulitis continues to improve. Will plan to proceed with right great toe amputation tomorrow. I have discussed the risks, benefits, and alternatives. Questions were answered. (2) Cellulitis of great toe, right: Code(s): L03.031 - Cellulitis of right toe Status: Acute (3) Fracture of right great toe: Code(s): S92.401A - Displaced unspecified fracture of right great toe, initial encounter for closed fracture Status: Acute (4) Acute on chronic renal failure: Code(s): N17.9 - Acute kidney failure, unspecified; N18.9 - Chronic kidney disease, unspecified Status: Acute (5) Type 2 diabetes mellitus with diabetic polyneuropathy: Code(s): E11.42 - Type 2 diabetes mellitus with diabetic polyneuropathy Status: Acute (6) Long-term insulin use: Code(s): Z79.4 - ocean transportation intermediary (current) use of insulin Status: Acute Subjective Subjective Date/Time Seen: 10/05/24 15:44 Interval history: No new issues today. Wants to get out of bed more. Exam Extrem: Other: Right great toe dressing dry. Erythema resolved on distal dorsal foot. Objective Data Vital Signs Vital Signs: Vital Signs - 24 hr 10/04/24 16:00 10/04/24 17:32 10/04/24 20:00 Temperature 97.5 F L Pulse Rate 76 70 70 Respiratory Rate 20 20 Blood Pressure 140/60 Pulse Oximetry 98 98 Oxygen Delivery Room Air 10/04/24 20:00 10/05/24 04:00 10/05/24 08:00 Temperature 97.0 F L 98.0 F 97.1 F L Pulse Rate 62 72 70 Respiratory Rate 18 18 18 Blood Pressure 134/70 178/96 H 134/78 Pulse Oximetry 98 98 99 Oxygen Delivery 10/05/24 08:31 10/05/24 12:15 10/05/24 13:45 Temperature 97.3 F L Pulse Rate 69 65 64 Respiratory Rate 16 Blood Pressure 123/70 Pulse Oximetry 100 Oxygen Delivery Intake/Output Intake/Output: Intake & Output 10/02/24 10/03/24 10/04/24 10/05/24 23:59 23:59 23:59 23:59 Intake Total 1050 1240 1820 1030 Output Total 400 300 Balance 1050 1240 1420 730 Meds/Results Medications: Active Medications Generic Name Dose Route Start Last Admin Trade Name Freq PRN Reason Stop Dose Admin Acetaminophen 650 mg 10/02/24 16:55 Acetaminophen 325 Mg Tablet PO Q4H PRN Mild Pain (1-3) or Fever Hydrocodone Bitart/Acetaminophen 1 tab 10/02/24 16:55 Hydrocodone/Acetaminophen (*Crx) 5-325 Mg Tablet PO Q4H PRN Pain Rated 4-6 Aspirin 81 mg 10/03/24 09:00 10/05/24 08:30 Aspirin 81 Mg Enteric Tablet PO 81 mg QAM TAMIKA Administration Atorvastatin Calcium 80 mg 10/03/24 09:00 10/05/24 08:32 Atorvastatin 40 Mg Tablet PO 80 mg DAILY TAMIKA Administration Bumetanide 0.5 mg 10/03/24 09:00 10/05/24 08:29 Bumetanide 0.5 Mg Tablet PO 0.5 mg DAILY TAMIKA Administration Buspirone HCl 10 mg 10/03/24 09:00 10/05/24 08:31 Buspirone Hcl 10 Mg Tablet PO 10 mg BID TAMIKA Administration Calcitriol 0.25 mcg 10/03/24 09:00 10/03/24 12:06 Calcitriol 0.25 Mcg Capsule PO 0.25 mcg [id number] TAMIKA Administration Dextrose 12.5 gm 10/02/24 17:35 Dextrose 50% 25 Gm/50 Ml Syringe IV PUSH PRN PRN Hypoglycemia Protocol Docusate Sodium 100 mg 10/03/24 09:00 10/05/24 08:30 Docusate Sodium 100 Mg Capsule PO 100 mg BID TAMIKA Administration Docusate Sodium 100 mg 10/05/24 21:00 Docusate Sodium 100 Mg Capsule PO Q12HR ON LICENSE OF [facility] Ezetimibe 10 mg 10/03/24 09:00 10/05/24 08:30 Ezetimibe 10 Mg Tablet PO 10 mg DAILY TAMIKA Administration Empagliflozin 25 mg 10/03/24 09:00 10/05/24 08:32 Empagliflozin 25 Mg Tablet BY MOUTH 25 mg QAM TAMIKA Administration Enoxaparin Sodium 40 mg 10/03/24 09:00 10/05/24 08:27 Enoxaparin 40 Mg/0.4 Ml Syringe SUB-Q 40 mg DAILY TAMIKA Administration Glucagon 1 mg 10/02/24 17:35 Glucagon For Inj 1 Mg Vial IM PRN PRN Hypoglycemia Protocol Glucose 15 gm 10/02/24 17:35 Glucose Oral Gel 15 Gm Of Glucse In 37.5 Gm Tube PO PRN PRN Hypoglycemia Protocol Cefepime HCl 2 gm in 50 mls @ 100 mls/hr 10/03/24 06:00 10/05/24 06:33 Maxipime 2 Gm/Ns 50 Ml IVPB Infused Q12H TAMIKA Infusion Metronidazole 500 mg in 100 mls @ 100 mls/hr 10/03/24 04:00 10/05/24 13:15 Flagyl 500 Mg/Iso Soln 100 Ml IVPB Infused Q8H TAMIKA Infusion Sodium Chloride 1,000 mls @ 125 mls/hr 10/02/24 16:55 10/03/24 18:29 Normal Saline Iv IV CONT Not Given .Q8H TAMIKA Dextrose 1,000 mls @ 100 mls/hr 10/02/24 17:35 Dextrose 5% 1,000 Ml IVPB PRN PRN Hypoglycemia Protocol Vancomycin HCl 1,500 mg in 500 mls @ 250 mls/hr 10/04/24 10:00 10/04/24 11:41 Vancomycin 1,500 Mg/Ns 500 Ml IVPB Infused Q36H T[facility]IKA Infusion Insulin Aspart 3 - 6 units 10/03/24 08:00 10/05/24 12:14 Insulin Aspart (*Bkc) 100 Units/Ml SUB-Q Not Given TIDWM ON LICENSE OF [facility] Protocol Insulin Aspart 1 - 3 units 10/02/24 21:00 10/04/24 21:37 Insulin Aspart (*Bkc) 100 Units/Ml SUB-Q Not Given HS ON LICENSE OF [facility] Protocol Insulin Human Regular 25 units 10/03/24 13:00 10/05/24 12:14 Insulin Human Regular (*Bkc) 100 Units/Ml SUB-Q 25 units DAILY@1200 TAMIKA Administration Insulin Human Regular 10 units 10/03/24 17:00 10/04/24 18:31 Insulin Human Regular (*Bkc) 100 Units/Ml IV PUSH Not Given DAILY@1700 TAMIKA Insulin Human Regular 55 units 10/05/24 08:00 10/05/24 08:20 Insulin Human Regular (*Bkc) 100 Units/Ml SUB-Q 55 units DAILY@0800 TAMIKA Administration Isosorbide Mononitrate 90 mg 10/03/24 09:00 10/05/24 08:30 Isosorbide Mononitrate 30 Mg Tab.Er.24h PO 90 mg DAILY TAMIKA Administration Morphine Sulfate 2 mg 10/02/24 16:55 Morphine Sulfate (*Crx) 2 Mg/Ml Inj IV PUSH Q2H PRN Pain Rated 7-10 Ondansetron HCl 4 mg 10/02/24 16:55 10/05/24 08:22 Ondansetron Inj 4 Mg/2 Ml Vial IV PUSH 4 mg Q4H PRN Administration Nausea Ondansetron HCl 4 mg 10/02/24 17:35 Ondansetron Inj 4 Mg/2 Ml Vial IV PUSH Q6H PRN Nausea And Vomiting Pantoprazole Sodium 40 mg 10/03/24 21:00 10/04/24 21:37 Pantoprazole 40 Mg Tablet PO 40 mg QHS TAMIKA Administration Polyethylene Glycol 17 gm 10/05/24 14:48 Polyethylene Glycol 3350 17 Gm Powd.Pack PO QAM PRN Constipation Propranolol HCl 80 mg 10/03/24 09:00 10/05/24 12:15 Propranolol Hcl 40 Mg Tablet PO 80 mg TID TAMIKA Administration Sertraline HCl 50 mg 10/02/24 23:10 10/05/24 08:30 Sertraline Hcl 50 Mg Tablet BY MOUTH 50 mg DAILY TAMIKA Administration Radiology Results: ITS Impressions Foot X-Ray 10/02/24 14:32 IMPRESSION: 1. Nondisplaced fracture of lateral aspect of head of first proximal phalanx. 2. Nondisplaced stellate fracture of tuft of first distal phalanx. 3. Mild polyarticular osteoarthritis. Labs Labs: Laboratory Results - last 24 hr 10/04/24 10/04/24 10/04/24 16:28 16:44 18:29 WBC RBC Hgb Hct MCV MCH MCHC RDW Plt Count MPV Sodium Potassium Chloride Carbon Dioxide Anion Gap BUN Creatinine Estim Creat Clear Calc Estimated GFR Glucose POC Capillary Glucose 69 71 77 Calcium Total Bilirubin AST ALT Alkaline Phosphatase Total Protein Albumin 10/04/24 10/05/24 10/05/24 20:15 06:37 07:56 WBC 9.6 RBC 3.58 L Hgb 10.8 L Hct 34.5 L MCV 96.4 MCH 30.2 MCHC 31.3 L RDW 13.9 Plt Count 500 H MPV 10.4 Sodium 141 Potassium 4.7 Chloride 112 H Carbon Dioxide 18 L Anion Gap 11 BUN 67 H Creatinine 3.14 H Estim Creat Clear Calc 29 Estimated GFR 20 L Glucose 181 H POC Capillary Glucose 63 L 202 H Calcium 8.3 L Total Bilirubin 0.8 AST 44 ALT 43 Alkaline Phosphatase 107 Total Protein 7.0 Albumin 2.9 L 10/05/24 11:53 WBC RBC Hgb Hct MCV MCH MCHC RDW Plt Count MPV Sodium Potassium Chloride Carbon Dioxide Anion Gap BUN Creatinine Estim Creat Clear Calc Estimated GFR Glucose POC Capillary Glucose 134 H Calcium Total Bilirubin AST ALT Alkaline Phosphatase Total Protein Albumin
[2024-10-05 16:58] LABS: Glucose Point of Care 102 mg/dl (65-105)
[2024-10-05] MEDS: INSULIN HUMAN REGULAR (*BKC) 100 UNITS/ML 10 UNITS IV PUSH (17:19)
[2024-10-05 20:14] LABS: Glucose Point of Care 133 mg/dl (65-105)
[2024-10-05] MEDS: PANTOPRAZOLE 40 MG TABLET PO (20:21)
[2024-10-05 22:11] LABS: Vancomycin Trough 14.4 ug/mL (10.0-20.0)
[2024-10-05] MEDS: VANCOMYCIN 1,500 MG/NS 500 ML 1,500 MG/500 ML BAG 125 MG IVPB (22:36)
[2024-10-06] VITALS (17 sets, daily range): BP systolic 132–155; BP diastolic 68–77; PULSE 59–69; RESP 12–18; TEMP 35.6–37.1; O2SAT 97–100
[2024-10-06] MEDS: metroNIDAZOLE 500 MG/ISO 100ML 500 MG/100 ML BAG 100 MG IVPB ×2 (03:20→12:01)
[2024-10-06] MEDS: CEFEPIME 2 GM/NS 50 ML 2 GM/50 ML BAG IVPB (05:54)
[2024-10-06 07:20] LABS: Hematocrit 34.1 % (42.0-52.0); Hemoglobin 10.7 g/dL (14.0-18.0); Mean Corpuscular HGB Conc 31.4 g/dl (32-36); Mean Corpuscular Hemoglobin 30.7 pg (26-34); Mean Platelet Volume 10.4 fl (7.4-10.4); Platelet Count Result 505 k/mm3 (150-375); Red Blood Count 3.48 M/mm3 (4.6-6.20); Red Cell Distribution Width 14.1 % (11.5-14.5); White Blood Count 11.6 K/mm3 (4.5-10.0)
--- NOTE | 2024-10-06 07:21 | ECG_ITS ---
Test Date: 2024-10-06 08:44:47 Measurements Intervals [place] Rate: 62 P: 26 MD: 159 QRS: -41 QRSD: 121 T: 64 QT: 471 QTc: 480 Interpretive Statements SINUS RHYTHM LEFT AXIS DEVIATION INTRAVENTRICULAR CONDUCTION DELAY DELAYED PRECORDIAL R/S TRANSITION BORDERLINE ST-T WAVE ABNORMALITY- HIGH LATERAL LEADS BASELINE ARTIFACT- I, II, III, AVR, AVL, AVF, V1-V6 BORDERLINE ECG No previous ECG available for comparison Electronically Signed On 10-06-2024 09:36:36 DATA ADMINISTRATOR by Gabino Ferreira D.O.
[2024-10-06 07:31] LABS: Alanine Aminotransferase 48 U/L (6-50); Albumin Level 2.9 g/dL (3.5-5.1); Alkaline Phosphatase 103 U/L (38-126); Anion Gap 15 mmol/L (4-12); Aspartate Amino Transferase 49 U/L (17-59); Bilirubin,Total 0.8 mg/dL (0.2-1.3); Blood Urea Nitrogen 71 mg/dL (9-20); Calcium 8.2 mg/dL (8.4-10.2); Carbon Dioxide 14 mmol/L (22-30); Chloride 113 mmol/L (98-107); Estimated CRCL calculation 28 ml/min; Estimated Glomerular Filt Rate 19; Glucose 140 mg/dL (65-110); Potassium 4.6 mmol/L (3.4-5.0); Sodium 142 mmol/L (137-145)
[2024-10-06 07:52] LABS: Glucose Point of Care 152 mg/dl (65-105)
--- NOTE | 2024-10-06 09:19 | P.PNIM_ITS ---
Progress Note: A&P Assessment and Plan (1) Diabetic foot ulcer: Code(s): E11.621 - Type 2 diabetes mellitus with foot ulcer; L97.509 - Non-pressure chronic ulcer of other part of unspecified foot with unspecified severity Status: Acute Assessment and Plan: patient reports injury to right great toe with worsening symptoms patient has severe diabetes and CAD with poor wound healing initial x-ray did show right great toe was also fractured * CRP elevate no WBC * Surgery consulted if debridement or amputation needed * blood cultures no growth today * wound culture ordered * NPO in case of possible procedure * IV cefepime, vancomycin and Flagyl * Will need close glucose control for any type of wound healing patient is a severely uncontrolled diabetic on high-dose insulin 10/04: * Day 1 post-op * Blood cultures NGTD * inoperative wound culture pending * continue with current ABX therapy will de-escalate with Culture and sensitivity * Plan is surgery 10/06 for amputation due to exposed fractured toe 10/05: * Postop day 2 * normal wbc no fever * blood cultures NGTD * wound culture still pending * surgery tomorrow hold morning Lovenox 10/06 10/06: * Amputation 10/06 * Aerobic culture grew Staphylococcus aureus * De-escalated ABX to doxycycline Augmentin times 14 days. (2) Fracture of right great toe: Code(s): S92.401A - Displaced unspecified fracture of right great toe, initial encounter for closed fracture Status: Acute Assessment and Plan: * Nondisplaced fracture of lateral aspect of head of first proximal phalanx. * Nondisplaced stellate fracture of tuft of first distal phalanx. * Orthopedics consulted * Pain management * elevate at rest Great toe was Amputated (3) Type 2 diabetes mellitus with diabetic polyneuropathy: Code(s): E11.42 - Type 2 diabetes mellitus with diabetic polyneuropathy Status: Acute Assessment and Plan: * Diabetic diet * Holding semaglutide * Hemoglobin A1c pending * Accuchecks ACHS * SSI moderate dosing added * Patient is hard to control diabetic on several diabetic medication, and high- dose insulin started conversion to U 100 while hospitalized and adjust as need currently 65u/25u/10u * Continue Jardiance and Zetia (4) Diastolic dysfunction: Onset Date: 03/2022 Code(s): I51.89 - Other ill-defined heart diseases Status: Acute Assessment and Plan: * patient does not appear to be in exacerbation * resumed his home Bumex (5) Presence of aortocoronary bypass graft: Onset Date: 10/2017 Code(s): Z95.1 - Presence of aortocoronary bypass graft Status: Acute Assessment and Plan: * Continue Inderal, aspirin, Lipitor, an imdur, Atorvastatin (6) Chronic kidney disease, stage 3b: Code(s): N18.32 - Chronic kidney disease, stage 3b Status: Acute Assessment and Plan: Acute on chronic renal failure Baseline around mid 2.5 * CR 3.32 POA * Currently on vancomycin pharmacy to dose will need to deescalate cultures * Avoid nephrotoxic drugs. * Monitor antihypertensive drug therapy. * Avoid NSAIDs. * Routine CMP monitoring GFR. * Monitor electrolytes especially potassium. * Antibiotic doses depending on creatinine clearance. * Pharmacy does medications. Plan Code status: Full code per patient DVT prophylaxis: Lovenox on hold for possible surgery Stress ulcer prophylaxis: Protonix 40 daily PT/OT notes: Weight bearing as tolerated Disposition: Patient continues admission for cellulitis/diabetic foot ulcer of the great right toe as well as fracture patient poor candidate for wound healing surgery amputated on on Friday 10/06 de-escalated ABX based on culture possible d/C tomorrow. Time Spent With Patient Time with patient: 15 - 25 minutes Subjective Date/time seen: 10/06/24 09:19 Interval history: Patient is a 69 year old male who was admitted for further evaluation and treatment right great toe wound with consult to surgery for possible debridement or amputation 10/06/2024: Patient seen post op amputation in no acute distress with no complaints to lerated procedure well. Denied pain, CP, SOB, N/V. Aerobic culture grew Staphylococcus aureus, Cr bumped will de-escalate ABX therapy. Review of Systems Review of Systems: 12 systems were reviewed and are negativ e except for as per HPI. All systems reviewed & are unremarkable except as noted in HPI and below Exam Narrative: * GENERAL: Alert and oriented x 3. No acute distress. * EYES: EOMI. No scleral icterus. PERRLA. * HEENT: Moist mucous membranes. * LUNGS: Clear to auscultation bilaterally. No accessory muscle use. * CARDIOVASCULAR: Regular rate and rhythm. No murmur. No JVD. S1-S2 * ABDOMEN: Soft, non tenderness and non-distended. No palpable masses. * EXTREMITIES: No edema. Right phalange 1st dressing in place, rest of the toes have erythema, dorsal surface of foot with erythema border marked * SKIN: No rashes or lesions. Skin warm, dry. * NEUROLOGIC: No focal neurological deficits. CN II-XII grossly intact Objective Data Vital Signs Vital Signs: Vital Signs - 24 hr 10/05/24 12:15 10/05/24 13:45 10/05/24 17:17 Temperature 97.3 F L Pulse Rate 65 64 63 Respiratory Rate 16 Blood Pressure 123/70 Pulse Oximetry 100 Oxygen Delivery 10/05/24 20:00 10/05/24 20:00 10/06/24 00:00 Temperature 97.2 F L 97.3 F L Pulse Rate 61 61 68 Respiratory Rate 17 17 12 Blood Pressure 141/72 H 155/75 H Pulse Oximetry 99 99 98 Oxygen Delivery Room Air 10/06/24 04:00 10/06/24 08:00 Temperature 97.1 F L 96.8 F L Pulse Rate 69 66 Respiratory Rate 12 18 Blood Pressure 151/70 H 147/69 H Pulse Oximetry 99 99 Oxygen Delivery Intake/Output Intake/Output: Intake & Output 10/03/24 10/04/24 10/05/24 10/06/24 23:59 23:59 23:59 23:59 Intake Total 1240 1820 1420 850 Output Total 400 300 600 Balance 1240 1420 1120 250 Meds/Results Medications: Active Medications Generic Name Dose Route Start Last Admin Trade Name Freq PRN Reason Stop Dose Admin Acetaminophen 650 mg 10/02/24 16:55 Acetaminophen 325 Mg Tablet PO Q4H PRN Mild Pain (1-3) or Fever Hydrocodone Bitart/Acetaminophen 1 tab 10/02/24 16:55 Hydrocodone/Acetaminophen (*Crx) 5-325 Mg Tablet PO Q4H PRN Pain Rated 4-6 Aspirin 81 mg 10/03/24 09:00 10/05/24 08:30 Aspirin 81 Mg Enteric Tablet PO 81 mg QAM TAMIKA Administration Atorvastatin Calcium 80 mg 10/03/24 09:00 10/05/24 08:32 Atorvastatin 40 Mg Tablet PO 80 mg DAILY TAMIKA Administration Bumetanide 0.5 mg 10/03/24 09:00 10/05/24 08:29 Bumetanide 0.5 Mg Tablet PO 0.5 mg DAILY TAMIKA Administration Buspirone HCl 10 mg 10/03/24 09:00 10/05/24 17:18 Buspirone Hcl 10 Mg Tablet PO 10 mg BID TAMIKA Administration Calcitriol 0.25 mcg 10/03/24 09:00 10/03/24 12:06 Calcitriol 0.25 Mcg Capsule PO 0.25 mcg MoWeFr@0900 TAMIKA Administration Dextrose 12.5 gm 10/02/24 17:35 Dextrose 50% 25 Gm/50 Ml Syringe IV PUSH PRN PRN Hypoglycemia Protocol Docusate Sodium 100 mg 10/03/24 09:00 10/05/24 17:17 Docusate Sodium 100 Mg Capsule PO Not Given BID TAMIKA Docusate Sodium 100 mg 10/05/24 21:00 10/05/24 20:22 Docusate Sodium 100 Mg Capsule PO 100 mg Q12HR TAMIKA Administration Ezetimibe 10 mg 10/03/24 09:00 10/05/24 08:30 Ezetimibe 10 Mg Tablet PO 10 mg DAILY TAMIKA Administration Empagliflozin 25 mg 10/03/24 09:00 10/05/24 08:32 Empagliflozin 25 Mg Tablet BY MOUTH 25 mg QAM TAMIKA Administration Enoxaparin Sodium 40 mg 10/03/24 09:00 10/05/24 08:27 Enoxaparin 40 Mg/0.4 Ml Syringe SUB-Q 40 mg DAILY TAMIKA Administration Glucagon 1 mg 10/02/24 17:35 Glucagon For Inj 1 Mg Vial IM PRN PRN Hypoglycemia Protocol Glucose 15 gm 10/02/24 17:35 Glucose Oral Gel 15 Gm Of Glucse In 37.5 Gm Tube PO PRN PRN Hypoglycemia Protocol Cefepime HCl 2 gm in 50 mls @ 100 mls/hr 10/03/24 06:00 10/06/24 06:24 Maxipime 2 Gm/Ns 50 Ml IVPB Infused Q12H TAMIKA Infusion Metronidazole 500 mg in 100 mls @ 100 mls/hr 10/03/24 04:00 10/06/24 04:20 Flagyl 500 Mg/Iso Soln 100 Ml IVPB Infused Q8H TAMIKA Infusion Sodium Chloride 1,000 mls @ 125 mls/hr 10/02/24 16:55 10/03/24 18:29 Normal Saline Iv IV CONT Not Given .Q8H TAMIKA Dextrose 1,000 mls @ 100 mls/hr 10/02/24 17:35 Dextrose 5% 1,000 Ml IVPB PRN PRN Hypoglycemia Protocol Vancomycin HCl 1,500 mg in 500 mls @ 250 mls/hr 10/04/24 10:00 10/06/24 02:36 Vancomycin 1,500 Mg/Ns 500 Ml IVPB Infused Q36H [facility] Infusion Insulin Aspart 3 - 6 units 10/03/24 08:00 10/06/24 08:43 Insulin Aspart (*Bkc) 100 Units/Ml SUB-Q Not Given TIDWM [facility] Protocol Insulin Aspart 1 - 3 units 10/02/24 21:00 10/05/24 20:22 Insulin Aspart (*Bkc) 100 Units/Ml SUB-Q Not Given HS [facility] Protocol Insulin Human Regular 25 units 10/03/24 13:00 10/05/24 12:14 Insulin Human Regular (*Bkc) 100 Units/Ml SUB-Q 25 units DAILY@1200 [facility] Administration Insulin Human Regular 10 units 10/03/24 17:00 10/05/24 17:19 Insulin Human Regular (*Bkc) 100 Units/Ml IV PUSH 10 units DAILY@1700 [facility] Administration Insulin Human Regular 55 units 10/05/24 08:00 10/06/24 08:48 Insulin Human Regular (*Bkc) 100 Units/Ml SUB-Q Not Given DAILY@0800 [facility] Isosorbide Mononitrate 90 mg 10/03/24 09:00 10/05/24 08:30 Isosorbide Mononitrate 30 Mg Tab.Er.24h PO 90 mg DAILY [facility] Administration Morphine Sulfate 2 mg 10/02/24 16:55 Morphine Sulfate (*Crx) 2 Mg/Ml Inj IV PUSH Q2H PRN Pain Rated 7-10 Ondansetron HCl 4 mg 10/02/24 16:55 10/05/24 08:22 Ondansetron Inj 4 Mg/2 Ml Vial IV PUSH 4 mg Q4H PRN Administration Nausea Ondansetron HCl 4 mg 10/02/24 17:35 Ondansetron Inj 4 Mg/2 Ml Vial IV PUSH Q6H PRN Nausea And Vomiting Pantoprazole Sodium 40 mg 10/03/24 21:00 10/05/24 20:21 Pantoprazole 40 Mg Tablet PO 40 mg QHS [facility] Administration Polyethylene Glycol 17 gm 10/05/24 14:48 Polyethylene Glycol 3350 17 Gm Powd.Pack PO QAM PRN Constipation Propranolol HCl 80 mg 10/03/24 09:00 10/05/24 17:17 Propranolol Hcl 40 Mg Tablet PO 80 mg TID TAMIKA Administration Sertraline HCl 50 mg 10/02/24 23:10 10/05/24 08:30 Sertraline Hcl 50 Mg Tablet BY MOUTH 50 mg DAILY TAMIKA Administration Radiology Results: ITS Impressions Foot X-Ray 10/02/24 14:32 IMPRESSION: 1. Nondisplaced fracture of lateral aspect of head of first proximal phalanx. 2. Nondisplaced stellate fracture of tuft of first distal phalanx. 3. Mild polyarticular osteoarthritis. Labs Labs: Laboratory Results - last 24 hr 10/05/24 10/05/24 10/05/24 11:53 16:52 20:11 WBC RBC Hgb Hct MCV MCH MCHC RDW Plt Count MPV Sodium Potassium Chloride Carbon Dioxide Anion Gap BUN Creatinine Estim Creat Clear Calc Estimated GFR Glucose POC Capillary Glucose 134 H 102 133 H Calcium Total Bilirubin AST ALT Alkaline Phosphatase Total Protein Albumin Vancomycin Trough 10/05/24 10/06/24 10/06/24 21:34 07:01 07:39 WBC 11.6 H RBC 3.48 L Hgb 10.7 L Hct 34.1 L MCV 98.0 MCH 30.7 MCHC 31.4 L RDW 14.1 Plt Count 505 H MPV 10.4 Sodium 142 Potassium 4.6 Chloride 113 H Carbon Dioxide 14 L Anion Gap 15 H BUN 71 H Creatinine 3.22 H Estim Creat Clear Calc 28 Estimated GFR 19 L Glucose 140 H POC Capillary Glucose 152 H Calcium 8.2 L Total Bilirubin 0.8 AST 49 ALT 48 Alkaline Phosphatase 103 Total Protein 7.0 Albumin 2.9 L Vancomycin Trough 14.4 Quality VTE Prophylaxis VTE prophylaxis: mechanical ordered and pharmacologic ordered -Patient's previous records reviewed on admission -ER notes reviewed in detail on admission -discussed all findings and current treatment plan with patient/Family/POA -Consultations reviewed for recommendations -Patient's disposition for safe discharge discussed with social work case manager Dictation performed by [employer] direct speech recognition software, therefore zone supervisor firearms variants and typographical errors may occur. Hospitalist MIPS Advance Care Plan I have confirmed that the patient's Advanced Care Plan is present, code status is documented, or surrogate decision maker is listed in patient medical record.: Yes Medication Reconciliation I have utilized all available resources to obtain, update and review the patients current medications (includes all prescriptions, OTC, herbals, cannabis, and nutritional supplements).: Yes The patient is not eligible for med reconciliation; the patient is in a emergent medical situation where delaying treatment would jeopardize the patients health.: No
[2024-10-06] MEDS: PROPRANOLOL HCL 40 MG TABLET 80 MG PO ×2 (09:25→18:05)
[2024-10-06] MEDS: SERTRALINE HCL 50 MG TABLET BY MOUTH (09:26)
[2024-10-06] MEDS: ISOSORBIDE MONONITRATE 30 MG TAB.ER.24H 90 MG PO (09:26)
--- NOTE | 2024-10-06 11:03 | PC.NURSE ---
To OR per [ ], IV [ ]. Report given to [SUHAIL ].
[2024-10-06] MEDS: LACTATED RINGERS 1,000 ML 30 ML IV CONT (11:20)
[2024-10-06 11:30] LABS: Glucose Point of Care 178 mg/dl (65-105)
--- NOTE | 2024-10-06 11:39 | WPDHPUPDATE1 ---
History and Physical Update Update Date/Time: 10/06/24 11:39 History and Physical has been reviewed, including an updated exam of the patient. There are NO changes in the patient's condition. Risks, benefits, and alternatives have been discussed and questions answered. Patient agrees to proceed with procedure.
--- NOTE | 2024-10-06 11:58 | P.PNAN_ITS ---
Anes - Initial Pre Proc Eval Procedure: Operation Date: 10/03/24 16:00 Proposed Procedures p Debridement Of Right Great Toe - Tom Aceves DO Operation Date: 10/06/24 12:30 Proposed Procedures p Right Toe Amputation - Tom IsabelSilvia Aceves DO Date/Time: 10/06/24 11:58 Surgeon: Darcie Garcia APRN Pre Op Diagnosis: Toe Cellulitis/Toe Frac/Acute On Chronic Renal Jed Patient Data Age: 69 Gender: M Height: 1.88 m Weight: 120.9 kg Last Vital Signs Temp 36.0 C L 10/06/24 08:00 Pulse 62 10/06/24 09:25 Resp 18 10/06/24 08:00 BP 147/69 H 10/06/24 08:00 Pulse Ox 99 10/06/24 08:00 O2 Del Method Room Air 10/05/24 20:00 O2 Flow Rate 10 10/03/24 15:50 Allergies Allergy/AdvReac Type Severity Reaction Status Date / Time No Known Allergies Allergy Verified 10/03/24 14:03 Home Medications ?Medication ?Instructions ?Recorded ?Confirmed ?Type aspirin 81 mg tablet 81 mg PO DAILY 03/14/21 10/02/24 History cetirizine 10 mg capsule (Zyrtec) 10 mg PO DAILY PRN allergy symptoms 03/14/21 10/02/24 History ranolazine 1,000 mg 1,000 mg PO Q12H 03/14/21 10/02/24 History tablet,extended release,12 hr fluticasone propionate 50 1 spray intranasal DAILY 10/12/22 10/02/24 History mcg/actuation nasal spray,suspension (Flonase Allergy Relief) atorvastatin 80 mg tablet 80 mg PO DAILY 3 months #90 tabs 10/16/22 10/02/24 Rx glucagon 1 mg/0.2 mL subcutaneous 1 mg (0.2 mL) subcut ONCE #0.4 mL 03/08/23 10/02/24 Rx auto-injector (Gvoke HypoPen 2-Pack) pen needle, diabetic 31 gauge x #100 ea 04/11/23 10/02/24 Rx 5/16 (BD Ultra-Fine Short Pen Needle) lancets (Microlet Lancet) #400 ea 10/13/23 02/13/25 Rx blood-glucose meter (Contour Next #1 ea 06/19/23 10/02/24 Rx Meter) blood sugar diagnostic (Contour #400 ea 08/27/23 10/02/24 Rx Next Test Strips) blood-glucose meter,continuous #1 ea 09/06/23 10/02/24 Rx (Dexcom G7 Marble Installer Supervisor) pantoprazole 40 mg tablet,delayed 40 mg PO QHS #90 tabs 10/01/23 10/02/24 Rx release bumetanide 0.5 mg tablet 0.5 mg PO DAILY #30 tabs 12/17/23 10/02/24 Rx isosorbide mononitrate 60 mg 90 mg (1.5 x 60 mg) PO DAILY #135 01/09/24 10/02/24 Rx tablet,extended release 24 hr tabs buspirone 10 mg tablet 10 mg PO BID #180 tabs 01/28/24 10/02/24 Rx blood-glucose sensor (Dexcom G7 #9 ea 02/28/24 10/02/24 Rx Sensor device) sertraline 50 mg tablet See Rx Instructions .Route 04/03/24 10/02/24 Rx .COMPLEX #90 tabs dapagliflozin propanediol 10 mg 10 mg PO QAM 90 days #90 tabs 08/15/24 10/02/24 Rx tablet (Farxiga) propranolol 80 mg tablet 80 mg PO TID #270 tabs 08/31/24 10/02/24 Rx calcitriol 0.25 mcg capsule 0.25 mcg PO 3XW 09/08/24 10/02/24 History ezetimibe 10 mg tablet 10 mg PO DAILY 09/08/24 10/02/24 History ondansetron HCl 8 mg tablet 8 mg PO Q8H PRN nausea and 09/23/24 10/02/24 Rx vomiting #20 tabs insulin regular hum U-500 conc 500 See Rx Instructions subcut QAM 10/02/24 10/02/24 History unit/mL(3 mL) subcut pen (Humulin R U-500 (Conc) Insulin Kwikpen) semaglutide 0.25 mg or 0.5 mg (2 0.25 mg subcut WEEKLY 10/02/24 10/02/24 History mg/3 mL) subcutaneous pen injector (Ozempic) Laboratory Tests 10/05/24 10/05/24 10/05/24 16:52 20:11 21:34 WBC RBC Hgb Hct MCV MCH MCHC RDW Plt Count MPV Sodium Potassium Chloride Carbon Dioxide Anion Gap BUN Creatinine Estim Creat Clear Calc Estimated GFR Glucose POC Capillary Glucose 102 mg/dl 133 H mg/dl (65-105) (65-105) Calcium Total Bilirubin AST ALT Alkaline Phosphatase Total Protein Albumin Vancomycin Trough 14.4 ug/mL (10.0-20.0) 10/06/24 10/06/24 10/06/24 07:01 07:39 11:27 WBC 11.6 H K/mm3 (4.5-10.0) RBC 3.48 L M/mm3 (4.6-6.20) Hgb 10.7 L g/dL (14.0-18.0) Hct 34.1 L % (42.0-52.0) MCV 98.0 fl (80-100) MCH 30.7 pg (26-34) MCHC 31.4 L g/dl (32-36) RDW 14.1 % (11.5-14.5) Plt Count 505 H k/mm3 (150-375) MPV 10.4 fl (7.4-10.4) Sodium 142 mmol/L (137-145) Potassium 4.6 mmol/L (3.4-5.0) Chloride 113 H mmol/L (98-107) Carbon Dioxide 14 L mmol/L (22-30) Anion Gap 15 H mmol/L (4-12) BUN 71 H mg/dL (9-20) Creatinine 3.22 H mg/dL (0.7-1.3) Estim Creat Clear Calc 28 ml/min Estimated GFR 19 L (59 - ) Glucose 140 H mg/dL (65-110) POC Capillary Glucose 152 H mg/dl 178 H mg/dl (65-105) (65-105) Calcium 8.2 L mg/dL (8.4-10.2) Total Bilirubin 0.8 mg/dL (0.2-1.3) AST 49 U/L (17-59) ALT 48 U/L (6-50) Alkaline Phosphatase 103 U/L (38-126) Total Protein 7.0 g/dL (6.3-8.2) Albumin 2.9 L g/dL (3.5-5.1) Vancomycin Trough Patient hx anesthesia problems: none Family hx anesthesia problems: none Results Review: All pre-operative results and documents have been reviewed as part of the pre- operative evaluation. FORMERLY [facility] Past Medical History Medical History Gastro-esophageal reflux disease without esophagitis Chronic kidney disease, stage 3b Major depressive disorder, recurrent, mild Diastolic dysfunction (03/2022) Coronary artery disease with angina pectoris Essential tremor Long-term insulin use Hypertensive chronic kidney disease with stage 1 through stage 4 chronic kidney disease, or unspecified chronic kidney disease Risk for falls Pure hypercholesterolemia Essential (primary) hypertension Type 2 diabetes mellitus with hyperglycemia Surgical History Surgical History History of amputation of left great toe Presence of aortocoronary bypass graft (10/2017) H/O foot surgery 2020, toe amputation S/P triple vessel bypass 10/2018 Family History Family History Father Family history of cataracts Mother Family history of diabetes mellitus in first degree relative Other Cancer Diabetes mellitus Heart disease Hypertension Social History Social History Smoking status: Never smoker Second hand tobacco smoke exposure: No Alcohol intake: never Alcohol use details: 1-2 per year Substance use: never Substance use type: does not use Do You Feel Safe in your Home?: Yes Lack of Transportation: No Lack of Food: Never True Current Housing: I Have Housing Concerned About Future Housing: No Difficulty Paying Gas/Electric Bills: No Difficulty Paying for Meds: No Currently Unemployed: No Education: Associate Degree Difficulty w/ Childcare or Family Care: No Living arrangements: with family Occupation/Education: retired Gender identity (if verbalized by the patient): Male Spiritual care concerns: No Agree to blood products: Yes Anes - Eval Final PreProcedure Day of Procedure 10/06/24 11:58 Patient weight: obese Heart: regular rate and rhythm Lungs: clear to auscultation and normal air movement Airway: Mallampati scale class III Neurological: alert and oriented Last oral intake: >/= 8 hours ASA classification: IV Emergent: no Anesthetic plan: proceed Anesthesia type and monitoring: general LMA and standard monitoring Results Review: All pre-operative results and documents have been reviewed as part of the pre- operative evaluation. Informed Consent: The patient's anesthetic plan and its attendant risks and benefits were discussed with the patient/family/POA. Questions were solicited and answers provided to the satisfaction of the patient/family/POA.
[2024-10-06] MEDS: BUPIVACAINE/EPINEPHRINE 0.5% 50 ML VIAL 30 ML INFILTRATE (12:09)
[2024-10-06] MEDS: BACITRACIN OINTMENT 15 GM TUBE 1 APPLIC TOPICAL (12:52)
[2024-10-06 13:06] LABS: Glucose Point of Care 175 mg/dl (65-105)
--- NOTE | 2024-10-06 13:14 | W.PM.PROC2 ---
Procedure Note - Detailed Date of Procedure 10/06/24 Pre-op Diagnosis Right great toe diabetic ulcer, Open toe fracture Post-op Diagnosis Same Procedure Performed Right great toe ray amputation Surgeon Tom Aceves, DO Anesthesia General and Local (0.5% bupivacaine with epinephrine) Indications this is a 69-year-old man who presented with a necrotic wound his right great toe. X-rays also confirmed fracture of the proximal and distal phalanx. After the necrotic wound was debrided, bone was clearly visible within the wound. Further discussions were then made with the patient and decision was made to proceed with right great toe amputation. Findings Right great toe ray amputation was performed. The patient had evidence of deep soft tissue infection of the right great toe and necrotic tip of the toe. Due to the infection extending all the way to the proximal phalanx, a ray amputation was performed. The 1st metatarsal was transected just proximal to the metatarsal head. The skin edges appeared healthy but there was some tracking from where the prior infection was. A half-inch Joaquina drain was placed within the subcutaneous space to monitor for any further signs of infection. Description of Procedure Procedure as well as risks, benefits, and alternatives were discussed with the patient. Written consent was obtained and placed in chart prior to procedure. Patient was brought back to surgical suite. He was placed supine on operating table. Time-out was done to confirm patient and procedure. He was then intubated by the anesthesia department. His right foot was prepped and draped in sterile fashion using Betadine prep. An elliptical incision was then made around the base of the right great toe. Electrocautery was then used for hemostasis and for dissection through the subcutaneous tissue. The lateral tendinous and ligamentous attachments were transected using electrocautery until I identified the metatarsal head. Then dissected just proximal to the metatarsal head on the 1st metatarsal using electrocautery and a bone elevator. The 1st metatarsal was then transected using a bone cutter. The sesamoid bones were also excised with electrocautery to allow for adequate dissection and closure over the metatarsal. Once the great toe was completely excise it was removed and sent to the lab for pathology. The wound bed was then inspected. Hemostasis was achieved with electrocautery. The wound was then irrigated with sterile saline. A half-inch Greenfield drain was then placed within the wound bed and secured in place using a 3-0 nylon stitch. The skin edges were then approximated using 3-0 nylon vertical mattress interrupted sutures. Bacitracin ointment was then applied followed by Xeroform gauze, fluff gauze, and a Kerlix wrap. The patient was then awakened from anesthesia, extubated, and transferred to recovery. Estimated Blood Loss 5 Urine Output 100 Drains Yes ( Half-inch Greenfield drain) Pathology Yes ( right great toe) Complications No immediate complications Condition Stable Disposition Floor [facility] Billing Surgery - Charge Forward: Surgery Billing
--- NOTE | 2024-10-06 13:51 | PC.NURSE ---
Returned from OR per [ ]. Report received from [ Dalia].
[2024-10-06] MEDS: LACTATED RINGERS 1,000 ML 100 ML IV CONT (14:09)
[2024-10-06 17:09] LABS: Glucose Point of Care 221 mg/dl (65-105)
[2024-10-06] MEDS: INSULIN HUMAN REGULAR (*BKC) 100 UNITS/ML 10 UNITS IV PUSH (18:03)
[2024-10-06] MEDS: INSULIN ASPART (*BKC) 100 UNITS/ML SUB-Q ×2 (18:04→21:01)
[2024-10-06] MEDS: busPIRone HCL 10 MG TABLET PO (18:05)
[2024-10-06] MEDS: DOCUSATE SODIUM 100 MG CAPSULE PO ×2 (18:05→21:02)
[2024-10-06] MEDS: PANTOPRAZOLE 40 MG TABLET PO (21:01)
[2024-10-06] MEDS: DOXYCYCLINE HYCLATE 100 MG TABLET PO (21:01)
[2024-10-06] MEDS: AMOXICILLIN/CLAVULANATE K 500-125 MG TAB 1 TABLET PO (21:01)
[2024-10-06 21:32] LABS: Glucose Point of Care 245 mg/dl (65-105)
[2024-10-07] VITALS (11 sets, daily range): BP systolic 127–150; BP diastolic 65–82; PULSE 61–66; RESP 16–20; TEMP 35.7–36.8; O2SAT 98–100
[2024-10-07 07:14] LABS: Hematocrit 32.9 % (42.0-52.0); Hemoglobin 10.3 g/dL (14.0-18.0); Mean Corpuscular HGB Conc 31.3 g/dl (32-36); Mean Corpuscular Hemoglobin 29.9 pg (26-34); Mean Corpuscular Volume 95.6 fl (80-100); Mean Platelet Volume 10.3 fl (7.4-10.4); Platelet Count Result 491 k/mm3 (150-375); Red Blood Count 3.44 M/mm3 (4.6-6.20); White Blood Count 11.1 K/mm3 (4.5-10.0)
[2024-10-07 07:22] LABS: Alanine Aminotransferase 48 U/L (6-50); Albumin Level 2.7 g/dL (3.5-5.1); Alkaline Phosphatase 101 U/L (38-126); Anion Gap 11 mmol/L (4-12); Aspartate Amino Transferase 45 U/L (17-59); Bilirubin,Total 0.7 mg/dL (0.2-1.3); Blood Urea Nitrogen 72 mg/dL (9-20); Carbon Dioxide 16 mmol/L (22-30); Chloride 112 mmol/L (98-107); Estimated CRCL calculation 27 ml/min; Estimated Glomerular Filt Rate 18; Glucose 194 mg/dL (65-110); Potassium 4.9 mmol/L (3.4-5.0); Sodium 139 mmol/L (137-145)
[2024-10-07 08:04] LABS: Glucose Point of Care 173 mg/dl (65-105)
--- NOTE | 2024-10-07 08:21 | P.PNIM_ITS ---
Progress Note: A&P Assessment and Plan (1) Diabetic foot ulcer: Code(s): E11.621 - Type 2 diabetes mellitus with foot ulcer; L97.509 - Non-pressure chronic ulcer of other part of unspecified foot with unspecified severity Status: Acute Assessment and Plan: patient reports injury to right great toe with worsening symptoms patient has severe diabetes and CAD with poor wound healing initial x-ray did show right great toe was also fractured * CRP elevate no WBC * Surgery consulted if debridement or amputation needed * blood cultures no growth today * wound culture ordered * NPO in case of possible procedure * IV cefepime, vancomycin and Flagyl * Will need close glucose control for any type of wound healing patient is a severely uncontrolled diabetic on high-dose insulin 10/04: * Day 1 post-op * Blood cultures NGTD * inoperative wound culture pending * continue with current ABX therapy will de-escalate with Culture and sensitivity * Plan is surgery 10/06 for amputation due to exposed fractured toe 10/05: * Postop day 2 * normal wbc no fever * blood cultures NGTD * wound culture still pending * surgery tomorrow hold morning Lovenox 10/06 10/06: * Amputation 10/06 * Aerobic culture grew Staphylococcus aureus * De-escalated ABX to doxycycline Augmentin times 14 days. 10/07: * Post-op day 2 * Minimal pain * ABX de-escalated based on sensitivities MSSA (2) Fracture of right great toe: Code(s): S92.401A - Displaced unspecified fracture of right great toe, initial encounter for closed fracture Status: Acute Assessment and Plan: * Nondisplaced fracture of lateral aspect of head of first proximal phalanx. * Nondisplaced stellate fracture of tuft of first distal phalanx. * Orthopedics consulted * Pain management * elevate at rest Great toe was Amputated (3) Chronic kidney disease, stage 3b: Code(s): N18.32 - Chronic kidney disease, stage 3b Status: Acute Assessment and Plan: Acute on chronic renal failure Baseline around mid 2.5 * CR 3.32 POA * Currently on vancomycin pharmacy to dose will need to deescalate cultures * Avoid nephrotoxic drugs. * Monitor antihypertensive drug therapy. * Avoid NSAIDs. * Routine CMP monitoring GFR. * Monitor electrolytes especially potassium. * Antibiotic doses depending on creatinine clearance. * Pharmacy does medications. 10/07: * Cr continues to trend up 3.37 today * de-escalated ABX therapy and had IV fluids with no improvement * Nephrology consulted for further evaluation or recommendation baseline mid 2's * Renal US pending (4) Type 2 diabetes mellitus with diabetic polyneuropathy: Code(s): E11.42 - Type 2 diabetes mellitus with diabetic polyneuropathy Status: Acute Assessment and Plan: * Diabetic diet * Holding semaglutide * Hemoglobin A1c pending * Accuchecks ACHS * SSI moderate dosing added * Patient is hard to control diabetic on several diabetic medication, and high- dose insulin started conversion to U 100 while hospitalized and adjust as need currently 65u/25u/10u * Continue Jardiance and Zetia (5) Diastolic dysfunction: Onset Date: 03/2022 Code(s): I51.89 - Other ill-defined heart diseases Status: Acute Assessment and Plan: * patient does not appear to be in exacerbation * resumed his home Bumex (6) Presence of aortocoronary bypass graft: Onset Date: 10/2017 Code(s): Z95.1 - Presence of aortocoronary bypass graft Status: Acute Assessment and Plan: * Continue Inderal, aspirin, Lipitor, an imdur, Atorvastatin Plan Code status: Full code per patient DVT prophylaxis: Lovenox on hold for possible surgery Stress ulcer prophylaxis: Protonix 40 daily PT/OT notes: Weight bearing as tolerated Disposition: Patient continues admission for cellulitis/diabetic foot ulcer of the great right toe as well as fracture patient poor candidate for wound healing surgery amputated on on Friday 10/06 de-escalated ABX based on culture Cr increasing will have nephrology evaluate. Time Spent With Patient Time with patient: 15 - 25 minutes Subjective Date/time seen: 10/07/24 08:21 Interval history: Patient is a 69 year old male who was admitted for further evaluation and treatment right great toe wound with consult to surgery for possible debridement or amputation 10/07/2024: CR trending up even with de-escalation of ABX therapy and IV fluids will consult nephrology. Patient post-op day 2 amputation cultures and sensitivities reported ABX changed for target therapy MSSA. Patient with minimal pain only with activity but goes away. Denied CP, SOB, N/V, fever or chills. Review of Systems Review of Systems: 12 systems were reviewed and are negativ e except for as per HPI. All systems reviewed & are unremarkable except as noted in HPI and below Exam Narrative: * GENERAL: Alert and oriented x 3. No acute distress. * EYES: EOMI. No scleral icterus. PERRLA. * HEENT: Moist mucous membranes. * LUNGS: Clear to auscultation bilaterally. No accessory muscle use. * CARDIOVASCULAR: Regular rate and rhythm. No murmur. No JVD. S1-S2 * ABDOMEN: Soft, non tenderness and non-distended. No palpable masses. * EXTREMITIES: No edema. Right phalange 1st dressing in place, rest of the toes have erythema, dorsal surface of foot with erythema border marked * SKIN: No rashes or lesions. Skin warm, dry. * NEUROLOGIC: No focal neurological deficits. CN II-XII grossly intact Objective Data Vital Signs Vital Signs: Vital Signs - 24 hr 10/06/24 09:25 10/06/24 13:00 10/06/24 13:15 Temperature 97.5 F L Pulse Rate 62 63 63 Respiratory Rate 14 12 Blood Pressure 139/70 138/73 Pulse Oximetry 100 98 Oxygen Delivery Simple Face Mask Room Air Oxygen Flow Rate 8 10/06/24 13:30 10/06/24 13:42 10/06/24 13:50 Temperature 96.9 F L Pulse Rate 63 63 62 Respiratory Rate 12 12 18 Blood Pressure 145/74 H 136/74 132/71 Pulse Oximetry 97 99 98 Oxygen Delivery Room Air Room Air Oxygen Flow Rate 10/06/24 14:05 10/06/24 14:35 10/06/24 15:35 Temperature 96.1 F L 96.7 F L 96.9 F L Pulse Rate 60 60 63 Respiratory Rate 18 18 18 Blood Pressure 141/71 H 138/68 150/77 H Pulse Oximetry 99 99 99 Oxygen Delivery Oxygen Flow Rate 10/06/24 18:05 10/06/24 20:00 10/06/24 21:27 Temperature 98.8 F Pulse Rate 59 L 59 L 63 Respiratory Rate 18 16 Blood Pressure 140/73 Pulse Oximetry 99 99 Oxygen Delivery Room Air Oxygen Flow Rate 10/06/24 21:27 10/06/24 23:35 10/07/24 00:00 Temperature 98.8 F Pulse Rate 63 Respiratory Rate 16 16 18 Blood Pressure 140/73 Pulse Oximetry 99 Oxygen Delivery Oxygen Flow Rate 10/07/24 03:35 10/07/24 04:00 10/07/24 08:00 Temperature 98.2 F 98.2 F 96.9 F L Pulse Rate 64 64 62 Respiratory Rate 18 18 20 Blood Pressure 150/82 H 150/82 H 143/65 H Pulse Oximetry 99 99 98 Oxygen Delivery Oxygen Flow Rate Intake/Output Intake/Output: Intake & Output 10/04/24 10/05/24 10/06/24 10/07/24 23:59 23:59 23:59 23:59 Intake Total 1820 1420 1780 1050 Output Total 400 300 950 300 Balance 1420 1120 830 750 Meds/Results Medications: Active Medications Generic Name Dose Route Start Last Admin Trade Name Freq PRN Reason Stop Dose Admin Acetaminophen 650 mg 10/02/24 16:55 Acetaminophen 325 Mg Tablet PO Q4H PRN Mild Pain (1-3) or Fever Hydrocodone Bitart/Acetaminophen 1 tab 10/02/24 16:55 Hydrocodone/Acetaminophen (*Crx) 5-325 Mg Tablet PO Q4H PRN Pain Rated 4-6 Amoxicillin/Clavulanate Potassium 1 tablet 10/06/24 21:00 10/06/24 21:01 Amoxicillin/Clavulanate K 500-125 Mg Tab PO 10/20/24 21:01 1 tablet Q12HR TAMIKA Administration Aspirin 81 mg 10/03/24 09:00 10/06/24 09:23 Aspirin 81 Mg Enteric Tablet PO Not Given QAM TAMIKA Atorvastatin Calcium 80 mg 10/03/24 09:00 10/06/24 09:23 Atorvastatin 40 Mg Tablet PO Not Given DAILY TAMIKA Bumetanide 0.5 mg 10/03/24 09:00 10/06/24 09:23 Bumetanide 0.5 Mg Tablet PO Not Given DAILY TAMIKA Buspirone HCl 10 mg 10/03/24 09:00 10/06/24 18:05 Buspirone Hcl 10 Mg Tablet PO 10 mg BID TAMIKA Administration Calcitriol 0.25 mcg 10/03/24 09:00 10/06/24 09:23 Calcitriol 0.25 Mcg Capsule PO Not Given [id number]@[id number] TAMIKA Dextrose 12.5 gm 10/02/24 17:35 Dextrose 50% 25 Gm/50 Ml Syringe IV PUSH PRN PRN Hypoglycemia Protocol Docusate Sodium 100 mg 10/03/24 09:00 10/06/24 18:05 Docusate Sodium 100 Mg Capsule PO 100 mg BID TAMIKA Administration Docusate Sodium 100 mg 10/05/24 21:00 10/07/24 06:47 Docusate Sodium 100 Mg Capsule PO Not Given Q12HR TAMIKA Doxycycline Hyclate 100 mg 10/06/24 21:00 10/06/24 21:01 Doxycycline Hyclate 100 Mg Tablet PO 10/20/24 21:01 100 mg Q12HR TAMIKA Administration Ezetimibe 10 mg 10/03/24 09:00 10/06/24 09:24 Ezetimibe 10 Mg Tablet PO Not Given DAILY TAMIKA Empagliflozin 25 mg 10/03/24 09:00 10/06/24 09:24 Empagliflozin 25 Mg Tablet BY MOUTH Not Given QAM [facility] Enoxaparin Sodium 40 mg 10/03/24 09:00 10/05/24 08:27 Enoxaparin 40 Mg/0.4 Ml Syringe SUB-Q 40 mg DAILY TAMIKA Administration Fentanyl Citrate 25 mcg 10/06/24 14:41 Fentanyl Citrate Inj (*Crx) 100 Mcg/2 Ml Vial IV PUSH Q2M PRN Pain Glucagon 1 mg 10/02/24 17:35 Glucagon For Inj 1 Mg Vial IM PRN PRN Hypoglycemia Protocol Glucose 15 gm 10/02/24 17:35 Glucose Oral Gel 15 Gm Of Glucse In 37.5 Gm Tube PO PRN PRN Hypoglycemia Protocol Dextrose 1,000 mls @ 100 mls/hr 10/02/24 17:35 Dextrose 5% 1,000 Ml IVPB PRN PRN Hypoglycemia Protocol Lactated Ringer's 1,000 mls @ 30 mls/hr 10/06/24 12:05 10/06/24 11:20 Lr - Lactated Ringers Iv IV CONT 30 mls/hr .Q24H [facility] Administration Insulin Aspart 3 - 6 units 10/03/24 08:00 10/06/24 18:04 Insulin Aspart (*Bkc) 100 Units/Ml SUB-Q 3 units TIDWM [facility] Administration Protocol Insulin Aspart 1 - 3 units 10/02/24 21:00 10/06/24 21:01 Insulin Aspart (*Bkc) 100 Units/Ml SUB-Q 1 units HS [facility] Administration Protocol Insulin Human Regular 25 units 10/03/24 13:00 10/06/24 11:51 Insulin Human Regular (*Bkc) 100 Units/Ml SUB-Q Not Given DAILY@1200 [facility] Insulin Human Regular 10 units 10/03/24 17:00 10/06/24 18:03 Insulin Human Regular (*Bkc) 100 Units/Ml IV PUSH 10 units DAILY@1700 [facility] Administration Insulin Human Regular 55 units 10/05/24 08:00 10/06/24 08:48 Insulin Human Regular (*Bkc) 100 Units/Ml SUB-Q Not Given DAILY@0800 [facility] Isosorbide Mononitrate 90 mg 10/03/24 09:00 10/06/24 09:26 Isosorbide Mononitrate 30 Mg Tab.Er.24h PO 90 mg DAILY [facility] Administration Morphine Sulfate 2 mg 10/02/24 16:55 Morphine Sulfate (*Crx) 2 Mg/Ml Inj IV PUSH Q2H PRN Pain Rated 7-10 Ondansetron HCl 4 mg 10/02/24 16:55 10/05/24 08:22 Ondansetron Inj 4 Mg/2 Ml Vial IV PUSH 4 mg Q4H PRN Administration Nausea Ondansetron HCl 4 mg 10/02/24 17:35 Ondansetron Inj 4 Mg/2 Ml Vial IV PUSH Q6H PRN Nausea And Vomiting Ondansetron HCl 4 mg 10/06/24 14:41 Ondansetron Inj 4 Mg/2 Ml Vial IV PUSH ONCE PRN Nausea Oxycodone HCl 5 mg 10/06/24 14:41 Oxycodone Hcl (*Crx) 5 Mg Tab Ir PO ONCE PRN Pain Pantoprazole Sodium 40 mg 10/03/24 21:00 10/06/24 21:01 Pantoprazole 40 Mg Tablet PO 40 mg QHS [facility] Administration Polyethylene Glycol 17 gm 10/05/24 14:48 Polyethylene Glycol 3350 17 Gm Powd.Pack PO QAM PRN Constipation Propranolol HCl 80 mg 10/03/24 09:00 10/06/24 18:05 Propranolol Hcl 40 Mg Tablet PO 80 mg TID [facility] Administration Sertraline HCl 50 mg 10/02/24 23:10 10/06/24 09:26 Sertraline Hcl 50 Mg Tablet BY MOUTH 50 mg DAILY [facility] Administration Radiology Results: ITS Impressions Foot X-Ray 10/02/24 14:32 IMPRESSION: 1. Nondisplaced fracture of lateral aspect of head of first proximal phalanx. 2. Nondisplaced stellate fracture of tuft of first distal phalanx. 3. Mild polyarticular osteoarthritis. Labs Labs: Laboratory Results - last 24 hr 10/06/24 10/06/24 10/06/24 11:27 13:04 17:07 WBC RBC Hgb Hct MCV MCH MCHC RDW Plt Count MPV Sodium Potassium Chloride Carbon Dioxide Anion Gap BUN Creatinine Estim Creat Clear Calc Estimated GFR Glucose POC Capillary Glucose 178 H 175 H 221 H Calcium Total Bilirubin AST ALT Alkaline Phosphatase Total Protein Albumin 10/06/24 10/07/24 10/07/24 21:00 06:44 07:52 WBC 11.1 H RBC 3.44 L Hgb 10.3 L Hct 32.9 L MCV 95.6 MCH 29.9 MCHC 31.3 L RDW 14.0 Plt Count 491 H MPV 10.3 Sodium 139 Potassium 4.9 Chloride 112 H Carbon Dioxide 16 L Anion Gap 11 BUN 72 H Creatinine 3.37 H Estim Creat Clear Calc 27 Estimated GFR 18 L Glucose 194 H POC Capillary Glucose 245 H 173 H Calcium 8.0 L Total Bilirubin 0.7 AST 45 ALT 48 Alkaline Phosphatase 101 Total Protein 6.0 L Albumin 2.7 L Quality VTE Prophylaxis VTE prophylaxis: mechanical ordered and pharmacologic ordered -Patient's previous records reviewed on admission -ER notes reviewed in detail on admission -discussed all findings and current treatment plan with patient/Family/POA -Consultations reviewed for recommendations -Patient's disposition for safe discharge discussed with medical case manager Dictation performed by [employer] direct speech recognition software, therefore office support variants and typographical errors may occur. Hospitalist MIPS Advance Care Plan I have confirmed that the patient's Advanced Care Plan is present, code status is documented, or surrogate decision maker is listed in patient medical record.: Yes Medication Reconciliation I have utilized all available resources to obtain, update and review the patients current medications (includes all prescriptions, OTC, herbals, cannabis, and nutritional supplements).: Yes The patient is not eligible for med reconciliation; the patient is in a emergent medical situation where delaying treatment would jeopardize the patients health.: No
[2024-10-07] MEDS: DOCUSATE SODIUM 100 MG CAPSULE PO ×3 (08:45→21:53)
[2024-10-07] MEDS: EMPAGLIFLOZIN 25 MG TABLET BY MOUTH (08:45)
[2024-10-07] MEDS: busPIRone HCL 10 MG TABLET PO ×2 (08:46→17:23)
[2024-10-07] MEDS: ISOSORBIDE MONONITRATE 30 MG TAB.ER.24H 90 MG PO (08:46)
[2024-10-07] MEDS: BUMETANIDE 0.5 MG TABLET PO (08:47)
[2024-10-07] MEDS: SERTRALINE HCL 50 MG TABLET BY MOUTH (08:47)
[2024-10-07] MEDS: PROPRANOLOL HCL 40 MG TABLET 80 MG PO ×3 (08:47→17:24)
[2024-10-07] MEDS: AMOXICILLIN/CLAVULANATE K 500-125 MG TAB 1 TABLET PO ×2 (08:48→21:53)
[2024-10-07] MEDS: EZETIMIBE 10 MG TABLET PO (08:48)
[2024-10-07] MEDS: ASPIRIN 81 MG ENTERIC TABLET PO (08:48)
[2024-10-07] MEDS: DOXYCYCLINE HYCLATE 100 MG TABLET PO ×2 (08:48→21:53)
[2024-10-07] MEDS: ENOXAPARIN 40 MG/0.4 ML SYRINGE SUB-Q (08:49)
[2024-10-07] MEDS: INSULIN HUMAN REGULAR (*BKC) 100 UNITS/ML 55 UNITS SUB-Q (08:51)
[2024-10-07] MEDS: ATORVASTATIN 40 MG TABLET 80 MG PO (09:01)
[2024-10-07 11:26] LABS: Glucose Point of Care 216 mg/dl (65-105)
--- NOTE | 2024-10-07 11:45 | P.CONNP_ITS ---
Assessment and Plan Assessment and plan (1) JUAN CARLOS (acute kidney injury): Code(s): N17.9 - Acute kidney failure, unspecified Status: Acute Assessment and Plan: * as noted on admission - creatinine of 3.32mg/dl * came down to 2,9mg/dl transiently * etiology likely secondary to acute infection - right great toe diabetic foot ulcer + cellulitis * however, cannot discount an element of CKD progression * check urine studies, CPK, and renal ultrasound * follow repeat labs and UOP (2) Chronic kidney disease, stage IV (severe): Code(s): N18.4 - Chronic kidney disease, stage 4 (severe) Status: Chronic Assessment and Plan: * baseline creatinine has been running 2.3 - 2.7mg/dl in the last few years * however, last creatinine up to 2.86mg/dl in July 2024 * due to diabetes, hypertension, vascular disease, (CAD + CHF + hyperlipidemia + PVD), and age * follows with Dr. Caprice Gusman for managment of his chronic kidney disease (3) Diabetic foot ulcer: Code(s): E11.621 - Type 2 diabetes mellitus with foot ulcer; L97.509 - Non-pressure chronic ulcer of other part of unspecified foot with unspecified severity Status: Acute Assessment and Plan: * as noted on admission * poor wound healing noted since injury * X-ray with right great toe fracture * complicated by cellulitis of right great toe * s/p debridement of right great toe by Surgery (on 10/03) * s/p right great toe amputation by Surgery (on 10/06) * culture data noted * blood cultures negative * would culture with Staph aureus * on antibiotics * local wound care (4) Diastolic dysfunction: Onset Date: 03/2022 Code(s): I51.89 - Other ill-defined heart diseases Status: Chronic Assessment and Plan: * appears compensated at this time * remains on home diuretic therapy * follow volume/respiratory status (5) Anemia: Code(s): D64.9 - Anemia, unspecified Status: Chronic Assessment and Plan: * presumably related to CKD from some contributions from JUAN CARLOS, acute infection, and recent operative procedure * follow trend of H/H * no need for TAMIKO at this time (6) Hypertension: Code(s): I10 - Essential (primary) hypertension Status: Chronic Assessment and Plan: * reasonable control at this time * follow trend of hemodynamics (7) Type 2 diabetes mellitus with diabetic polyneuropathy: Code(s): E11.42 - Type 2 diabetes mellitus with diabetic polyneuropathy Status: Acute Assessment and Plan: * follow accu-checks * brittle control noted - last HgbA1c noted * glycemic control per hospitalist I will continue to follow the patient with you while he remains hospitalized and make further recommendations as deemed necessary. Thank you for allowing me to participate in the care of this patient. L History of Present Illness Reason for Consult Consult date: 10/07/24 Reason for consult: acute renal failure (on chronic kidney disease) Chief Complaint Chief complaint: Toe Cellulitis/Toe Frac/Acute On Chronic Renal Jed History of Present Illness Narrative: The patient is a 69-year-old male with a past medical history as outlined below who was directed to the ER from his primary care physician's office due to a suspected right great toe infection. Apparently, about a week and a half ago prior to presentation to the ER, the patient injured his right great toe. he states that his right foot got caught under a rug and this resulted in a skin injury to the top of his right great toe. He apparently had been on outpatient antibiotic therapy since this injury occurred. However, he went to his primary care physician on the day of admission due to the fact that his right great toe as well as part of his lower foot seem to be getting more erythematous and red concerning for possible skin infection / cellulitis. He did go see his primary care physician but due to the evidence of discoloration and erythema it was felt that further intervention would be required and he was subsequently instructed to go to the ER for further assessment. Workup and evaluation emergency room demonstrated the patient to be hemodynamically stable and afebrile. Routine blood test demonstrated normal white blood cell count, relative anemia, normal platelet count, and a chemistry consistent with his known history of kidney disease although his creatinine was a bit worse than baseline. Imaging studies of his right foot demonstrated a fracture of the right great toe as well. Given evidence of an infection of his right great toe that is likely worsened by his brittle diabetes, after appropriate cultures were obtained, he was started on IV antibiotics and subsequently admitted to the hospital for further evaluation and therapy. Since his admission, he has been seen by surgery and underwent a debridement of the right great toe wound a but given his continued infection as well as the a for mentioned right great toe fracture, he subsequently underwent a right great toe amputation for definitive treatment of the infection and the fracture. His wounds appear to be healing reasonably well however his renal function has continued to deteriorate since his admission. Renal consultation was requested due to his acute kidney injury/acute renal failure on top of his baseline chronic kidney disease. From review his records and discussion with the patient, he has known chronic kidney disease stage IV with a baseline creatinine the normally runs around 2.3 - 2.7 mg/dL which is thought to be secondary to his history of hypertension, diabetes, vascular disease, and age-related change. He normally follows with Dr. Caprice Gusman for managment of his chronic kidney disease. On admission, his creatinine was 3.37 mg/dL and unfortunately, has progressively worsened since admission. In spite of this fact, he has no critical electrolyte abnormalities or evidence of volume overload although he remains on diuretic therapy but does have an associated mild metabolic acidosis. Currently, at the time my visit, he appears to be in no acute distress. Review of Systems 2 Review of Systems: As per HPI. [facility] Past Medical History Medical History (Updated 10/09/24 @ 16:12 by Jan Jacobsen MD) Gastro-esophageal reflux disease without esophagitis Chronic kidney disease, stage 3b Major depressive disorder, recurrent, mild Diastolic dysfunction (03/2022) Coronary artery disease with angina pectoris Essential tremor Long-term insulin use Hypertensive chronic kidney disease with stage 1 through stage 4 chronic kidney disease, or unspecified chronic kidney disease Risk for falls Pure hypercholesterolemia Essential (primary) hypertension Type 2 diabetes mellitus with hyperglycemia Surgical History Surgical History (Updated 10/06/24 @ 20:37 by Adrian Owens MD) History of amputation of right great toe (09/2024) History of amputation of left great toe (2020) Presence of aortocoronary bypass graft (10/2017) H/O foot surgery 2020, toe amputation S/P triple vessel bypass 10/2018 Family History Family History Father Family history of cataracts Mother Family history of diabetes mellitus in first degree relative Other Cancer Diabetes mellitus Heart disease Hypertension Social History Social History Smoking status: Never smoker Second hand tobacco smoke exposure: No Alcohol intake: never Alcohol use details: 1-2 per year Substance use: never Substance use type: does not use Do You Feel Safe in your Home?: Yes Lack of Transportation: No Lack of Food: Never True Current Housing: I Have Housing Concerned About Future Housing: No Difficulty Paying Gas/Electric Bills: No Difficulty Paying for Meds: No Currently Unemployed: No Education: Associate Degree Difficulty w/ Childcare or Family Care: No Living arrangements: with family Occupation/Education: retired Gender identity (if verbalized by the patient): Male Spiritual care concerns: No Agree to blood products: Yes Meds Home Medications and Allergies Home Medications ?Medication ?Instructions ?Recorded ?Confirmed ?Type aspirin 81 mg tablet 81 mg PO DAILY 03/14/21 10/02/24 History cetirizine 10 mg capsule (Zyrtec) 10 mg PO DAILY PRN allergy symptoms 03/14/21 10/02/24 History ranolazine 1,000 mg 1,000 mg PO Q12H 03/14/21 10/02/24 History tablet,extended release,12 hr fluticasone propionate 50 1 spray intranasal DAILY 10/12/22 10/02/24 History mcg/actuation nasal spray,suspension (Flonase Allergy Relief) atorvastatin 80 mg tablet 80 mg PO DAILY 3 months #90 tabs 10/16/22 10/02/24 Rx glucagon 1 mg/0.2 mL subcutaneous 1 mg (0.2 mL) subcut ONCE #0.4 mL 03/08/23 10/02/24 Rx auto-injector (GvViralGains HypoPen 2-Pack) pen needle, diabetic 31 gauge x #100 ea 04/11/23 10/08/24 Rx 5/16 (BD Ultra-Fine Short Pen Needle) blood-glucose meter,continuous #1 ea 09/06/23 10/08/24 Rx (Dexcom G7 Mat Sewer) pantoprazole 40 mg tablet,delayed 40 mg PO QHS #90 tabs 10/01/23 10/02/24 Rx release bumetanide 0.5 mg tablet 0.5 mg PO DAILY #30 tabs 12/17/23 10/02/24 Rx isosorbide mononitrate 60 mg 90 mg (1.5 x 60 mg) PO DAILY #135 01/09/24 10/02/24 Rx tablet,extended release 24 hr tabs buspirone 10 mg tablet 10 mg PO BID #180 tabs 01/28/24 10/02/24 Rx blood-glucose sensor (Dexcom G7 #9 ea 02/28/24 10/08/24 Rx Sensor device) sertraline 50 mg tablet See Rx Instructions .Route 04/03/24 10/02/24 Rx .COMPLEX #90 tabs dapagliflozin propanediol 10 mg 10 mg PO QAM 90 days #90 tabs 08/15/24 10/02/24 Rx tablet (Farxiga) propranolol 80 mg tablet 80 mg PO TID #270 tabs 08/31/24 10/02/24 Rx calcitriol 0.25 mcg capsule 0.25 mcg PO 3XW 09/08/24 10/02/24 History ezetimibe 10 mg tablet 10 mg PO DAILY 09/08/24 10/02/24 History ondansetron HCl 8 mg tablet 8 mg PO Q8H PRN nausea and 09/23/24 10/02/24 Rx vomiting #20 tabs insulin regular hum U-500 conc 500 See Rx Instructions subcut QAM 10/02/24 10/02/24 History unit/mL(3 mL) subcut pen (Humulin R U-500 (Conc) Insulin Kwikpen) semaglutide 0.25 mg or 0.5 mg (2 0.25 mg subcut WEEKLY 10/02/24 10/02/24 History mg/3 mL) subcutaneous pen injector (Ozempic) amoxicillin 500 mg-potassium 1 tablet PO Q12HR 14 days #28 tabs 10/09/24 Rx clavulanate 125 mg tablet (Augmentin) Allergies Allergy/AdvReac Type Severity Reaction Status Date / Time No Known Allergies Allergy Verified 10/03/24 14:03 Vital Signs Vital Signs Temp Pulse Resp BP Pulse Ox O2 Del Method 10/07/24 11:35 96.2 F L 65 18 134/66 100 10/07/24 08:47 63 10/07/24 08:00 96.9 F L 62 20 143/65 H 98 10/07/24 04:00 98.2 F 64 18 150/82 H 99 10/07/24 03:35 98.2 F 64 18 150/82 H 99 10/07/24 00:00 18 0217/25 23:35 16 10/06/24 21:27 98.8 F 63 16 140/73 99 10/06/24 21:27 98.8 F 63 16 140/73 99 10/06/24 20:00 59 L 18 99 Room Air 10/06/24 18:05 59 L 10/06/24 15:35 96.9 F L 63 18 150/77 H 99 Exam 2 Narrative: GENERAL APPEARANCE: well developed well nourished male in no acute distress HEENT: normocephalic, atraumatic, normal conjunctiva and sclera, nares patient NECK: no lymphadenopathy, thyromegaly, or JVD MOUTH: normal lips, teeth, and gums CARDIOVASCULAR: RRR, normal S1 and S2, no rub detected RESPIRATORY: clear to auscultation bilaterally ABDOMEN: soft, nontender, nondistended, positive bowel sounds present EXTREMITIES: no evidence of cyanosis, clubbing, or edema; right foot dressings in place NEUROLOGICAL: alert and oriented x 3; CN II - XII intact bilaterally; no focal deficits noted Results Lab Results 10/09/24 07:02 10/09/24 07:02 Lab results: Most recent lab results Calcium 8.0 mg/dL (8.4-10.2) L 10/07/24 06:44
[2024-10-07] MEDS: INSULIN ASPART (*BKC) 100 UNITS/ML SUB-Q (12:02)
[2024-10-07] MEDS: INSULIN HUMAN REGULAR (*BKC) 100 UNITS/ML 25 UNITS SUB-Q (12:03)
--- NOTE | 2024-10-07 12:05 | P.PNGS_ITS ---
Progress Note: A&P Assessment and Plan (1) Diabetic foot ulcer: Code(s): E11.621 - Type 2 diabetes mellitus with foot ulcer; L97.509 - Non-pressure chronic ulcer of other part of unspecified foot with unspecified severity Status: Acute Assessment and Plan: * Postop day 1 following right great toe amputation. Continue local wound care with Xeroform gauze dressing changes. Continue antibiotics, Hospitalist tra nsitioned him to oral antibiotics yesterday. (2) Cellulitis of great toe, right: Code(s): L03.031 - Cellulitis of right toe Status: Acute (3) Fracture of right great toe: Code(s): S92.401A - Displaced unspecified fracture of right great toe, initial encounter for closed fracture Status: Acute (4) Acute on chronic renal failure: Code(s): N17.9 - Acute kidney failure, unspecified; N18.9 - Chronic kidney disease, unspecified Status: Acute (5) Type 2 diabetes mellitus with diabetic polyneuropathy: Code(s): E11.42 - Type 2 diabetes mellitus with diabetic polyneuropathy Status: Acute (6) Long-term insulin use: Code(s): Z79.4 - jail (current) use of insulin Status: Acute Plan I have discussed the patient's case and plan of care with Dr. Aceves. Subjective Subjective Date/Time Seen: 10/07/24 12:05 Post Op day: 1 (Right great toe ray amputation) Patient reports: no new complaints and afebrile Interval history: Patient doing well today. He has been getting up with assist to the bedside commode and wearing his postop shoe. He felt like it was rubbing on the medial foot where his amputation is located. They had a significant amount of serosanguineous drainage that came through the dressing last night when he got up and the nurse reinforced the dressing x 1. He reports intermittent sharp pains near the amputation site that are mild pains and quickly resolve. Exam Narrative: Dressing removed from right foot. Right great toe amputation with skin edges loosely approximated and the lateral 1/3 of the wound near the 2nd toe is black and soft, almost consistent with the appearance of a clot, skin appears healthy and overall redness is improving. Joaquina drain sutured in place within the wound. No purulent drainage noted, moderate serosanguineous drainage on dressing. Const: General: comfortable and no acute distress Orientation/consciousness: patient oriented x3 Objective Data Vital Signs Vital Signs: Vital Signs - 24 hr 10/06/24 13:00 10/06/24 13:15 10/06/24 13:30 Temperature 97.5 F L Pulse Rate 63 63 63 Respiratory Rate 14 12 12 Blood Pressure 139/70 138/73 145/74 H Pulse Oximetry 100 98 97 Oxygen Delivery Simple Face Mask Room Air Room Air Oxygen Flow Rate 8 10/06/24 13:42 10/06/24 13:50 10/06/24 14:05 Temperature 96.9 F L 96.1 F L Pulse Rate 63 62 60 Respiratory Rate 12 18 18 Blood Pressure 136/74 132/71 141/71 H Pulse Oximetry 99 98 99 Oxygen Delivery Room Air Oxygen Flow Rate 10/06/24 14:35 10/06/24 15:35 10/06/24 18:05 Temperature 96.7 F L 96.9 F L Pulse Rate 60 63 59 L Respiratory Rate 18 18 Blood Pressure 138/68 150/77 H Pulse Oximetry 99 99 Oxygen Delivery Oxygen Flow Rate 10/06/24 20:00 10/06/24 21:27 10/06/24 21:27 Temperature 98.8 F 98.8 F Pulse Rate 59 L 63 63 Respiratory Rate 18 16 16 Blood Pressure 140/73 140/73 Pulse Oximetry 99 99 99 Oxygen Delivery Room Air Oxygen Flow Rate 10/06/24 23:35 10/07/24 00:00 10/07/24 03:35 Temperature 98.2 F Pulse Rate 64 Respiratory Rate 16 18 18 Blood Pressure 150/82 H Pulse Oximetry 99 Oxygen Delivery Oxygen Flow Rate 10/07/24 04:00 10/07/24 08:00 10/07/24 08:47 Temperature 98.2 F 96.9 F L Pulse Rate 64 62 63 Respiratory Rate 18 20 Blood Pressure 150/82 H 143/65 H Pulse Oximetry 99 98 Oxygen Delivery Oxygen Flow Rate 10/07/24 11:35 10/07/24 12:00 Temperature 96.2 F L 96.2 F L Pulse Rate 65 65 Respiratory Rate 18 18 Blood Pressure 134/66 134/66 Pulse Oximetry 100 100 Oxygen Delivery Oxygen Flow Rate Intake/Output Intake/Output: Intake & Output 10/04/24 10/05/24 10/06/24 10/07/24 23:59 23:59 23:59 23:59 Intake Total 1820 1420 1780 1470 Output Total 400 300 950 450 Balance 1420 9840 319 6913 Meds/Results Medications: Active Medications Generic Name Dose Route Start Last Admin Trade Name Freq PRN Reason Stop Dose Admin Acetaminophen 650 mg 10/02/24 16:55 Acetaminophen 325 Mg Tablet PO Q4H PRN Mild Pain (1-3) or Fever Hydrocodone Bitart/Acetaminophen 1 tab 10/02/24 16:55 Hydrocodone/Acetaminophen (*Crx) 5-325 Mg Tablet PO Q4H PRN Pain Rated 4-6 Amoxicillin/Clavulanate Potassium 1 tablet 10/06/24 21:00 10/07/24 08:48 Amoxicillin/Clavulanate K 500-125 Mg Tab PO 10/20/24 21:01 1 tablet Q12HR TAMIKA Administration Aspirin 81 mg 10/03/24 09:00 10/07/24 08:48 Aspirin 81 Mg Enteric Tablet PO 81 mg QAM TAMIKA Administration Atorvastatin Calcium 80 mg 10/03/24 09:00 10/07/24 09:01 Atorvastatin 40 Mg Tablet PO 80 mg DAILY TAMIKA Administration Bumetanide 0.5 mg 10/03/24 09:00 10/07/24 08:47 Bumetanide 0.5 Mg Tablet PO 0.5 mg DAILY TAMIKA Administration Buspirone HCl 10 mg 10/03/24 09:00 10/07/24 08:46 Buspirone Hcl 10 Mg Tablet PO 10 mg BID TAMIKA Administration Calcitriol 0.25 mcg 10/03/24 09:00 10/06/24 09:23 Calcitriol 0.25 Mcg Capsule PO Not Given [id number]@[id number] TAMIKA Dextrose 12.5 gm 10/02/24 17:35 Dextrose 50% 25 Gm/50 Ml Syringe IV PUSH PRN PRN Hypoglycemia Protocol Docusate Sodium 100 mg 10/03/24 09:00 10/07/24 08:45 Docusate Sodium 100 Mg Capsule PO 100 mg BID TAMIKA Administration Docusate Sodium 100 mg 10/05/24 21:00 10/07/24 06:47 Docusate Sodium 100 Mg Capsule PO Not Given Q12HR TAMIKA Doxycycline Hyclate 100 mg 10/06/24 21:00 10/07/24 08:48 Doxycycline Hyclate 100 Mg Tablet PO 10/20/24 21:01 100 mg Q12HR TAMIKA Administration Ezetimibe 10 mg 10/03/24 09:00 10/07/24 08:48 Ezetimibe 10 Mg Tablet PO 10 mg DAILY TAMIKA Administration Empagliflozin 25 mg 10/03/24 09:00 10/07/24 08:45 Empagliflozin 25 Mg Tablet BY MOUTH 25 mg QAM TAMIKA Administration Enoxaparin Sodium 40 mg 10/03/24 09:00 10/07/24 08:49 Enoxaparin 40 Mg/0.4 Ml Syringe SUB-Q 40 mg DAILY TAMIKA Administration Fentanyl Citrate 25 mcg 10/06/24 14:41 Fentanyl Citrate Inj (*Crx) 100 Mcg/2 Ml Vial IV PUSH Q2M PRN Pain Glucagon 1 mg 10/02/24 17:35 Glucagon For Inj 1 Mg Vial IM PRN PRN Hypoglycemia Protocol Glucose 15 gm 10/02/24 17:35 Glucose Oral Gel 15 Gm Of Glucse In 37.5 Gm Tube PO PRN PRN Hypoglycemia Protocol Dextrose 1,000 mls @ 100 mls/hr 10/02/24 17:35 Dextrose 5% 1,000 Ml IVPB PRN PRN Hypoglycemia Protocol Lactated Ringer's 1,000 mls @ 30 mls/hr 10/06/24 12:05 10/07/24 11:34 Lr - Lactated Ringers Iv IV CONT Not Given .Q24H TAMIKA Insulin Aspart 3 - 6 units 10/03/24 08:00 10/07/24 12:02 Insulin Aspart (*Bkc) 100 Units/Ml SUB-Q 3 units TIDWM [facility] Administration Protocol Insulin Aspart 1 - 3 units 10/02/24 21:00 10/06/24 21:01 Insulin Aspart (*Bkc) 100 Units/Ml SUB-Q 1 units HS TAMIKA Administration Protocol Insulin Human Regular 25 units 10/03/24 13:00 10/07/24 12:03 Insulin Human Regular (*Bkc) 100 Units/Ml SUB-Q 25 units DAILY@1200 [facility] Administration Insulin Human Regular 10 units 10/03/24 17:00 10/06/24 18:03 Insulin Human Regular (*Bkc) 100 Units/Ml IV PUSH 10 units DAILY@1700 [facility] Administration Insulin Human Regular 55 units 10/05/24 08:00 10/07/24 08:51 Insulin Human Regular (*Bkc) 100 Units/Ml SUB-Q 55 units DAILY@0800 TAMIKA Administration Isosorbide Mononitrate 90 mg 10/03/24 09:00 10/07/24 08:46 Isosorbide Mononitrate 30 Mg Tab.Er.24h PO 90 mg DAILY TAMIKA Administration Morphine Sulfate 2 mg 10/02/24 16:55 Morphine Sulfate (*Crx) 2 Mg/Ml Inj IV PUSH Q2H PRN Pain Rated 7-10 Ondansetron HCl 4 mg 10/02/24 16:55 10/05/24 08:22 Ondansetron Inj 4 Mg/2 Ml Vial IV PUSH 4 mg Q4H PRN Administration Nausea Ondansetron HCl 4 mg 10/02/24 17:35 Ondansetron Inj 4 Mg/2 Ml Vial IV PUSH Q6H PRN Nausea And Vomiting Ondansetron HCl 4 mg 10/06/24 14:41 Ondansetron Inj 4 Mg/2 Ml Vial IV PUSH ONCE PRN Nausea Oxycodone HCl 5 mg 10/06/24 14:41 Oxycodone Hcl (*Crx) 5 Mg Tab Ir PO ONCE PRN Pain Pantoprazole Sodium 40 mg 10/03/24 21:00 10/06/24 21:01 Pantoprazole 40 Mg Tablet PO 40 mg QHS TAMIKA Administration Polyethylene Glycol 17 gm 10/05/24 14:48 Polyethylene Glycol 3350 17 Gm Powd.Pack PO QAM PRN Constipation Propranolol HCl 80 mg 10/03/24 09:00 10/07/24 08:47 Propranolol Hcl 40 Mg Tablet PO 80 mg TID TAMIKA Administration Sertraline HCl 50 mg 10/02/24 23:10 10/07/24 08:47 Sertraline Hcl 50 Mg Tablet BY MOUTH 50 mg DAILY TAMIKA Administration Radiology Results: ITS Impressions Foot X-Ray 10/02/24 14:32 IMPRESSION: 1. Nondisplaced fracture of lateral aspect of head of first proximal phalanx. 2. Nondisplaced stellate fracture of tuft of first distal phalanx. 3. Mild polyarticular osteoarthritis. Renal Ultrasound 10/07/24 11:52 IMPRESSION: 1. 3.4 cm mixed solid and cystic lesion at the upper pole the right kidney with 2 cm solid nodular component which is concerning for renal cell carcinoma. Recommend urologic consultation and further evaluation with pre and postcontrast MRI or CT. 2. No hydronephrosis in either kidney. 3. Trabeculated bladder wall which can be seen with neurogenic bladder or chronic outlet obstruction such as in the setting of prostatomegaly. Labs Labs: Laboratory Results - last 24 hr 10/06/24 10/06/24 10/06/24 13:04 17:07 21:00 WBC RBC Hgb Hct MCV MCH MCHC RDW Plt Count MPV Sodium Potassium Chloride Carbon Dioxide Anion Gap BUN Creatinine Estim Creat Clear Calc Estimated GFR Glucose POC Capillary Glucose 175 H 221 H 245 H Calcium Total Bilirubin AST ALT Alkaline Phosphatase Total Protein Albumin 10/07/24 10/07/24 10/07/24 06:44 07:52 11:23 WBC 11.1 H RBC 3.44 L Hgb 10.3 L Hct 32.9 L MCV 95.6 MCH 29.9 MCHC 31.3 L RDW 14.0 Plt Count 491 H MPV 10.3 Sodium 139 Potassium 4.9 Chloride 112 H Carbon Dioxide 16 L Anion Gap 11 BUN 72 H Creatinine 3.37 H Estim Creat Clear Calc 27 Estimated GFR 18 L Glucose 194 H POC Capillary Glucose 173 H 216 H Calcium 8.0 L Total Bilirubin 0.7 AST 45 ALT 48 Alkaline Phosphatase 101 Total Protein 6.0 L Albumin 2.7 L
[2024-10-07 13:51] LABS: Add Urine Microscopic? YES; Appearance Urine Turbid (Clear); Bacteria Urine None Seen /hpf; Bilirubin Urine Negative (Negative); Blood Urine 3+ (Negative); Color Urine Dark Yellow (Yellow); Glucose Urine UA 3+ mg/dL (Negative); Ketones Urine Trace mg/dL (Negative); Leukocyte Esterase Ur 1+ LEU/UL (Negative); Need Manual Microscopic Reviewed; Nitrate Urine Negative (Negative); Protein Urine 4+ mg/dL (Negative); RBC Urine >100 /hpf (0-2); Specific Grav Ur 1.019 (1.001-1.035); Squamous Epithelial Cell Urine Occasional /hpf (Few); Urobilinogen Urine 0.2 mg/dL (<2.0); WBC Urine 21-50 /hpf (0-3)
[2024-10-07 14:07] LABS: Urea Random Urine 482 MG/DL
[2024-10-07 14:30] LABS: Eosinophil Urine None Seen % (None Seen); Urine Eos QC 2nd Tech Confirmed
[2024-10-07 14:40] LABS: Total Protein Urine Random > 600 mg/dL
[2024-10-07 15:19] LABS: Total Protein Urine Random > 600 mg/dL
[2024-10-07 15:20] LABS: Ur Ttl Prot Creatinine Ratio > 5.83 mg/mg (0-0.20)
[2024-10-07 16:38] LABS: Glucose Point of Care 120 mg/dl (65-105)
[2024-10-07] MEDS: INSULIN HUMAN REGULAR (*BKC) 100 UNITS/ML 10 UNITS IV PUSH (17:21)
[2024-10-07 20:43] LABS: Glucose Point of Care 134 mg/dl (65-105)
[2024-10-07] MEDS: PANTOPRAZOLE 40 MG TABLET PO (21:53)
[2024-10-08 05:57] VITALS: BP 136/66; PULSE 64; RESP 17; TEMP 36.1; O2SAT 99
[2024-10-08 07:50] LABS: Glucose Point of Care 159 mg/dl (65-105)
[2024-10-08] MEDS: AMOXICILLIN/CLAVULANATE K 500-125 MG TAB 1 TABLET PO ×2 (08:31→21:56)
[2024-10-08] MEDS: INSULIN HUMAN REGULAR (*BKC) 100 UNITS/ML 55 UNITS SUB-Q (08:31)
[2024-10-08] MEDS: ISOSORBIDE MONONITRATE 30 MG TAB.ER.24H 90 MG PO (08:31)
[2024-10-08 08:32] VITALS: PULSE 64
[2024-10-08] MEDS: SERTRALINE HCL 50 MG TABLET BY MOUTH (08:32)
[2024-10-08] MEDS: busPIRone HCL 10 MG TABLET PO ×2 (08:32→16:11)
[2024-10-08] MEDS: DOCUSATE SODIUM 100 MG CAPSULE PO ×2 (08:32→16:11)
[2024-10-08] MEDS: ASPIRIN 81 MG ENTERIC TABLET PO (08:32)
[2024-10-08] MEDS: BUMETANIDE 0.5 MG TABLET PO (08:32)
[2024-10-08] MEDS: EZETIMIBE 10 MG TABLET PO (08:32)
[2024-10-08] MEDS: PROPRANOLOL HCL 40 MG TABLET 80 MG PO ×3 (08:32→16:11)
[2024-10-08] MEDS: EMPAGLIFLOZIN 25 MG TABLET BY MOUTH (08:32)
[2024-10-08] MEDS: DOXYCYCLINE HYCLATE 100 MG TABLET PO (08:32)
[2024-10-08] MEDS: calcitrioL 0.25 MCG CAPSULE PO (08:37)
[2024-10-08] MEDS: ENOXAPARIN 40 MG/0.4 ML SYRINGE SUB-Q (08:37)
[2024-10-08 09:55] LABS: Hematocrit 35.6 % (42.0-52.0); Hemoglobin 11.1 g/dL (14.0-18.0); Mean Corpuscular HGB Conc 31.2 g/dl (32-36); Mean Corpuscular Hemoglobin 30.2 pg (26-34); Mean Corpuscular Volume 96.7 fl (80-100); Mean Platelet Volume 10.1 fl (7.4-10.4); Platelet Count Result 502 k/mm3 (150-375); Red Blood Count 3.68 M/mm3 (4.6-6.20); Red Cell Distribution Width 14.1 % (11.5-14.5); White Blood Count 11.1 K/mm3 (4.5-10.0)
[2024-10-08 10:22] LABS: Alanine Aminotransferase 54 U/L (6-50); Albumin Level 2.9 g/dL (3.5-5.1); Alkaline Phosphatase 116 U/L (38-126); Anion Gap 13 mmol/L (4-12); Aspartate Amino Transferase 52 U/L (17-59); Bilirubin,Total 0.8 mg/dL (0.2-1.3); Blood Urea Nitrogen 78 mg/dL (9-20); Calcium 8.3 mg/dL (8.4-10.2); Carbon Dioxide 17 mmol/L (22-30); Chloride 110 mmol/L (98-107); Creatine Kinase 83 U/L (55-170); Estimated CRCL calculation 22 ml/min; Estimated Glomerular Filt Rate 15; Glucose 237 mg/dL (65-110); Potassium 5.7 mmol/L (3.4-5.0); Sodium 140 mmol/L (137-145)
[2024-10-08] MEDS: ATORVASTATIN 40 MG TABLET 80 MG PO (11:11)
--- NOTE | 2024-10-08 11:25 | PM.PNGS ---
Progress Note: A&P Assessment and Plan (1) Diabetic foot ulcer: Code(s): E11.621 - Type 2 diabetes mellitus with foot ulcer; L97.509 - Non-pressure chronic ulcer of other part of unspecified foot with unspecified severity Status: Acute Assessment and Plan: Postop day 2 following right great toe ray amputation. Continue local wound care with Xeroform gauze dressing changes. Swelling and redness continues to improve. Continue antibiotics. Will order PT/OT today. He should continue heel-touch weight bearing on RLE. Postop shoe at the bedside for activity. (2) Cellulitis of great toe, right: Code(s): L03.031 - Cellulitis of right toe Status: Acute (3) Fracture of right great toe: Code(s): S92.401A - Displaced unspecified fracture of right great toe, initial encounter for closed fracture Status: Acute (4) Acute on chronic renal failure: Code(s): N17.9 - Acute kidney failure, unspecified; N18.9 - Chronic kidney disease, unspecified Status: Acute Assessment and Plan: Creatinine still slowly rising. Nephrology following (5) Type 2 diabetes mellitus with diabetic polyneuropathy: Code(s): E11.42 - Type 2 diabetes mellitus with diabetic polyneuropathy Status: Acute (6) Long-term insulin use: Code(s): Z79.4 - skilled nursing (current) use of insulin Status: Acute Plan I have discussed the patient's case and plan of care with Dr. Aceves. Subjective Subjective Date/Time Seen: 10/08/24 11:25 Post Op day: 2 (Right great toe ray amputation) Patient reports: no new complaints and afebrile Interval history: Patient denies any new issues. Creatinine has gone up over the past few days and Nephrology is now following. He has been up to the chair and does well with transferring with a walker with heel touch weight-bearing. He has not really ambulated. Exam Narrative: Dressing removed from right foot. Right great toe amputation with skin edges loosely approximated on the lateral 1/3 of the wound near the 2nd toe and a francesco drain sutured in place. I cleaned the wound well with saline today and the tissue within the wound is still dark but slightly more pink today, the overall erythema and swelling in his forefoot is improving. The skin around the incision appears healthy and viable. Minimal serosanguineous drainage on dressing, no purulent drainage noted. Objective Data Vital Signs Vital Signs: Vital Signs - 24 hr 10/07/24 11:35 10/07/24 12:00 10/07/24 12:06 Temperature 96.2 F L 96.2 F L Pulse Rate 65 65 66 Respiratory Rate 18 18 Blood Pressure 134/66 134/66 Pulse Oximetry 100 100 Oxygen Delivery 10/07/24 15:55 10/07/24 17:24 10/07/24 20:00 Temperature 96.6 F L 97.0 F L Pulse Rate 61 62 62 Respiratory Rate 18 16 Blood Pressure 132/75 127/70 Pulse Oximetry 99 98 Oxygen Delivery 10/07/24 20:00 10/08/24 05:57 10/08/24 08:00 Temperature 97.0 F L Pulse Rate 64 Respiratory Rate 17 Blood Pressure 136/66 Pulse Oximetry 99 Oxygen Delivery Room Air Room Air 10/08/24 08:32 Temperature Pulse Rate 64 Respiratory Rate Blood Pressure Pulse Oximetry Oxygen Delivery Intake/Output Intake/Output: Intake & Output 10/05/24 10/06/24 10/07/24 10/08/24 23:59 23:59 23:59 23:59 Intake Total 1420 1780 2690 240 Output Total 300 950 450 325 Balance 1694 163 9749 -85 Meds/Results Medications: Active Medications Generic Name Dose Route Start Last Admin Trade Name Freq PRN Reason Stop Dose Admin Acetaminophen 650 mg 10/02/24 16:55 Acetaminophen 325 Mg Tablet PO Q4H PRN Mild Pain (1-3) or Fever Hydrocodone Bitart/Acetaminophen 1 tab 10/02/24 16:55 Hydrocodone/Acetaminophen (*Crx) 5-325 Mg Tablet PO Q4H PRN Pain Rated 4-6 Amoxicillin/Clavulanate Potassium 1 tablet 10/06/24 21:00 10/08/24 08:31 Amoxicillin/Clavulanate K 500-125 Mg Tab PO 10/20/24 21:01 1 tablet Q12HR TAMIKA Administration Aspirin 81 mg 10/03/24 09:00 10/08/24 08:32 Aspirin 81 Mg Enteric Tablet PO 81 mg QAM TAMIKA Administration Atorvastatin Calcium 80 mg 10/03/24 09:00 10/08/24 11:11 Atorvastatin 40 Mg Tablet PO 80 mg DAILY TAMIKA Administration Bumetanide 0.5 mg 10/03/24 09:00 10/08/24 08:32 Bumetanide 0.5 Mg Tablet PO 0.5 mg DAILY TAMIKA Administration Buspirone HCl 10 mg 10/03/24 09:00 10/08/24 08:32 Buspirone Hcl 10 Mg Tablet PO 10 mg BID TAMIKA Administration Calcitriol 0.25 mcg 10/03/24 09:00 10/08/24 08:37 Calcitriol 0.25 Mcg Capsule PO 0.25 mcg [id number]@0900 TAMIKA Administration Dextrose 12.5 gm 10/02/24 17:35 Dextrose 50% 25 Gm/50 Ml Syringe IV PUSH PRN PRN Hypoglycemia Protocol Docusate Sodium 100 mg 10/03/24 09:00 10/08/24 08:32 Docusate Sodium 100 Mg Capsule PO 100 mg BID TAMIKA Administration Docusate Sodium 100 mg 10/05/24 21:00 10/08/24 08:32 Docusate Sodium 100 Mg Capsule PO Not Given Q12HR [facility] Doxycycline Hyclate 100 mg 10/06/24 21:00 10/08/24 08:32 Doxycycline Hyclate 100 Mg Tablet PO 10/20/24 21:01 100 mg Q12HR TAMIKA Administration Ezetimibe 10 mg 10/03/24 09:00 10/08/24 08:32 Ezetimibe 10 Mg Tablet PO 10 mg DAILY TAMIKA Administration Empagliflozin 25 mg 10/03/24 09:00 10/08/24 08:32 Empagliflozin 25 Mg Tablet BY MOUTH 25 mg QAM TAMIKA Administration Enoxaparin Sodium 40 mg 10/03/24 09:00 10/08/24 08:37 Enoxaparin 40 Mg/0.4 Ml Syringe SUB-Q 40 mg DAILY TAMIKA Administration Fentanyl Citrate 25 mcg 10/06/24 14:41 Fentanyl Citrate Inj (*Crx) 100 Mcg/2 Ml Vial IV PUSH Q2M PRN Pain Glucagon 1 mg 10/02/24 17:35 Glucagon For Inj 1 Mg Vial IM PRN PRN Hypoglycemia Protocol Glucose 15 gm 10/02/24 17:35 Glucose Oral Gel 15 Gm Of Glucse In 37.5 Gm Tube PO PRN PRN Hypoglycemia Protocol Dextrose 1,000 mls @ 100 mls/hr 10/02/24 17:35 Dextrose 5% 1,000 Ml IVPB PRN PRN Hypoglycemia Protocol Insulin Aspart 3 - 6 units 02/14/25 08:00 10/08/24 08:31 Insulin Aspart (*Bkc) 100 Units/Ml SUB-Q Not Given TIDWM [facility] Protocol Insulin Aspart 1 - 3 units 10/02/24 21:00 10/07/24 21:54 Insulin Aspart (*Bkc) 100 Units/Ml SUB-Q Not Given HS [facility] Protocol Insulin Human Regular 25 units 10/03/24 13:00 10/07/24 12:03 Insulin Human Regular (*Bkc) 100 Units/Ml SUB-Q 25 units DAILY@1200 [facility] Administration Insulin Human Regular 10 units 10/03/24 17:00 10/07/24 17:21 Insulin Human Regular (*Bkc) 100 Units/Ml IV PUSH 10 units DAILY@1700 [facility] Administration Insulin Human Regular 55 units 10/05/24 08:00 10/08/24 08:31 Insulin Human Regular (*Bkc) 100 Units/Ml SUB-Q 55 units DAILY@0800 [facility] Administration Isosorbide Mononitrate 90 mg 10/03/24 09:00 10/08/24 08:31 Isosorbide Mononitrate 30 Mg Tab.Er.24h PO 90 mg DAILY [facility] Administration Morphine Sulfate 2 mg 10/02/24 16:55 Morphine Sulfate (*Crx) 2 Mg/Ml Inj IV PUSH Q2H PRN Pain Rated 7-10 Ondansetron HCl 4 mg 10/02/24 16:55 10/05/24 08:22 Ondansetron Inj 4 Mg/2 Ml Vial IV PUSH 4 mg Q4H PRN Administration Nausea Ondansetron HCl 4 mg 10/02/24 17:35 Ondansetron Inj 4 Mg/2 Ml Vial IV PUSH Q6H PRN Nausea And Vomiting Ondansetron HCl 4 mg 10/06/24 14:41 Ondansetron Inj 4 Mg/2 Ml Vial IV PUSH ONCE PRN Nausea Oxycodone HCl 5 mg 10/06/24 14:41 Oxycodone Hcl (*Crx) 5 Mg Tab Ir PO ONCE PRN Pain Pantoprazole Sodium 40 mg 10/03/24 21:00 10/07/24 21:53 Pantoprazole 40 Mg Tablet PO 40 mg QHS TAMIKA Administration Polyethylene Glycol 17 gm 10/05/24 14:48 Polyethylene Glycol 3350 17 Gm Powd.Pack PO QAM PRN Constipation Propranolol HCl 80 mg 10/03/24 09:00 10/08/24 08:32 Propranolol Hcl 40 Mg Tablet PO 80 mg TID TAMIKA Administration Sertraline HCl 50 mg 10/02/24 23:10 10/08/24 08:32 Sertraline Hcl 50 Mg Tablet BY MOUTH 50 mg DAILY TAMIKA Administration Radiology Results: ITS Impressions Foot X-Ray 10/02/24 14:32 IMPRESSION: 1. Nondisplaced fracture of lateral aspect of head of first proximal phalanx. 2. Nondisplaced stellate fracture of tuft of first distal phalanx. 3. Mild polyarticular osteoarthritis. Renal Ultrasound 10/07/24 11:52 IMPRESSION: 1. 3.4 cm mixed solid and cystic lesion at the upper pole the right kidney with 2 cm solid nodular component which is concerning for renal cell carcinoma. Recommend urologic consultation and further evaluation with pre and postcontrast MRI or CT. 2. No hydronephrosis in either kidney. 3. Trabeculated bladder wall which can be seen with neurogenic bladder or chronic outlet obstruction such as in the setting of prostatomegaly. Labs Labs: Laboratory Results - last 24 hr 10/07/24 10/07/24 10/07/24 11:23 13:28 13:28 WBC RBC Hgb Hct MCV MCH MCHC RDW Plt Count MPV Sodium Potassium Chloride Carbon Dioxide Anion Gap BUN Creatinine Estim Creat Clear Calc Estimated GFR Glucose POC Capillary Glucose 216 H Calcium Total Bilirubin AST ALT Alkaline Phosphatase Total Creatine Kinase Total Protein Albumin Urine Color Dark yellow Urine Appearance Turbid H Urine pH 5.0 Ur Specific [place] 1.019 Urine Protein 4+ H Urine Glucose (UA) 3+ H Urine Ketones Trace H Ur Blood (Man) 3+ H Urine Nitrate Negative Urine Bilirubin Negative Urine Urobilinogen 0.2 Add Ur Microanalysis Reviewed Leukocyte Esterase Rfl 1+ H Urine RBC >100 H Urine WBC 21-50 H Ur Squamous Epith Cells Occasional Urine Bacteria None seen Urine Casts 11-20 Urine Eosinophils None seen U Random Total Protein > 600 > 600 Ur Random Urea 482 Urine Creatinine 103.0 Protein/Creat Ratio 2 > 5.83 H 10/07/24 10/07/24 10/08/24 16:19 19:53 07:30 WBC RBC Hgb Hct MCV MCH MCHC RDW Plt Count MPV Sodium Potassium Chloride Carbon Dioxide Anion Gap BUN Creatinine Estim Creat Clear Calc Estimated GFR Glucose POC Capillary Glucose 120 H 134 H 159 H Calcium Total Bilirubin AST ALT Alkaline Phosphatase Total Creatine Kinase Total Protein Albumin Urine Color Urine Appearance Urine pH Ur Specific [place] Urine Protein Urine Glucose (UA) Urine Ketones Ur Blood (Man) Urine Nitrate Urine Bilirubin Urine Urobilinogen Add Ur Microanalysis Leukocyte Esterase Rfl Urine RBC Urine WBC Ur Squamous Epith Cells Urine Bacteria Urine Casts Urine Eosinophils U Random Total Protein Ur Random Urea Urine Creatinine Protein/Creat Ratio 2 10/08/24 09:31 WBC 11.1 H RBC 3.68 L Hgb 11.1 L Hct 35.6 L MCV 96.7 MCH 30.2 MCHC 31.2 L RDW 14.1 Plt Count 502 H MPV 10.1 Sodium 140 Potassium 5.7 H Chloride 110 H Carbon Dioxide 17 L Anion Gap 13 H BUN 78 H Creatinine 4.05 H Estim Creat Clear Calc 22 Estimated GFR 15 L Glucose 237 H POC Capillary Glucose Calcium 8.3 L Total Bilirubin 0.8 AST 52 ALT 54 H Alkaline Phosphatase 116 Total Creatine Kinase 83 Total Protein 6.0 L Albumin 2.9 L Urine Color Urine Appearance Urine pH Ur Specific [place] Urine Protein Urine Glucose (UA) Urine Ketones Ur Blood (Man) Urine Nitrate Urine Bilirubin Urine Urobilinogen Add Ur Microanalysis Leukocyte Esterase Rfl Urine RBC Urine WBC Ur Squamous Epith Cells Urine Bacteria Urine Casts Urine Eosinophils U Random Total Protein Ur Random Urea Urine Creatinine Protein/Creat Ratio 2
[2024-10-08 11:36] LABS: Glucose Point of Care 188 mg/dl (65-105)
[2024-10-08] MEDS: INSULIN HUMAN REGULAR (*BKC) 100 UNITS/ML 25 UNITS SUB-Q (11:51)
[2024-10-08 12:32] VITALS: PULSE 64
[2024-10-08] MEDS: SODIUM ZIRCONIUM CYCLOSILICATE 10 GM POWD.PACK PO ×2 (12:33→17:12)
[2024-10-08 13:20] LABS: Creatinine Urine 101.2 mg/dL; Sodium Urine Random 25 meq/L
--- NOTE | 2024-10-08 14:01 | P.PNNP_ITS ---
Progress Note: A&P Assessment and Plan (1) JUAN CARLOS (acute kidney injury): Code(s): N17.9 - Acute kidney failure, unspecified Status: Acute Assessment and Plan: * as noted on admission - creatinine of 3.32mg/dl * came down to 2,9mg/dl transiently * etiology likely secondary to acute infection - right great toe diabetic foot ulcer + cellulitis * however, cannot discount an element of CKD progression * evalutation to date noted: * renal u/s without hydro but concerning for renal mass * urine electrolytes pre-renal * urine eosinophils noted * UA (from 10/07) suggestive of infection -- culture pending * proteinuria noted * CPK normal * holding diuretic therapy for now * consider trial of IVFs(?) * follow repeat labs and UOP (2) Chronic kidney disease, stage IV (severe): Code(s): N18.4 - Chronic kidney disease, stage 4 (severe) Status: Chronic Assessment and Plan: * baseline creatinine has been running 2.3 - 2.7mg/dl in the last few years * however, last creatinine up to 2.86mg/dl in July 2024 * due to diabetes, hypertension, vascular disease, (CAD + CHF + hyperlipidemia + PVD), and age * follows with Dr. Caprice Gusman for managment of his chronic kidney disease (3) Diabetic foot ulcer: Code(s): E11.621 - Type 2 diabetes mellitus with foot ulcer; L97.509 - Non-pressure chronic ulcer of other part of unspecified foot with unspecified severity Status: Acute Assessment and Plan: * as noted on admission * poor wound healing noted since injury * X-ray with right great toe fracture * complicated by cellulitis of right great toe * s/p right great toe amputation by Surgery (on 10/06) * culture data noted * blood cultures negative * would culture with Staph aureus * on antibiotics * local wound care (4) Diastolic dysfunction: Onset Date: 03/2022 Code(s): I51.89 - Other ill-defined heart diseases Status: Chronic Assessment and Plan: * appears compensated at this time * remains on home diuretic therapy * follow volume/respiratory status (5) Anemia: Code(s): D64.9 - Anemia, unspecified Status: Chronic Assessment and Plan: * presumably related to CKD from some contributions from JUAN CARLOS, acute infection, and recent operative procedure * follow trend of H/H * no need for TAMIKO at this time (6) Urinary tract infection: Code(s): N39.0 - Urinary tract infection, site not specified Status: Acute Assessment and Plan: * recent UA (10/07) suggestive * follow urine culture results (7) Hypertension: Code(s): I10 - Essential (primary) hypertension Status: Chronic Assessment and Plan: * reasonable control at this time * follow trend of hemodynamics (8) Type 2 diabetes mellitus with diabetic polyneuropathy: Code(s): E11.42 - Type 2 diabetes mellitus with diabetic polyneuropathy Status: Acute Assessment and Plan: * follow accu-checks * brittle control noted - last HgbA1c noted * glycemic control per hospitalist Will continue to follow. L Subjective Date/time seen: 10/08/24 14:01 Interval history: Follow-up for acute kidney injury/acute renal failure on chronic kidney disease. Renal function/creatinine a bit worse by AM labs and now associated with mild hyperkalemia as well -- however, still making urine per patient report; medical managment with [facility] instituted for elevated K+ level; no other acute issues/complaints voiced at this time; feels reasonably well. Exam 2 Narrative: General: elderly WD/WN male in NAD Heart: normal S1 and S2; no rub Lungs: clear to auscultation Abdomen: soft, nontender, nondistended, positive bowel sounds Extremities: no cyanosis or clubbing; trace edema Skin: dressings over right foot noted Objective Data Vital Signs Vital Signs: Vital Signs Temp Pulse Resp BP Pulse Ox O2 Del Method 10/08/24 12:32 64 10/08/24 08:32 64 10/08/24 08:00 Room Air 10/08/24 05:57 97.0 F L 64 17 136/66 99 10/07/24 20:00 Room Air 10/07/24 20:00 97.0 F L 62 16 127/70 98 Intake/Output Intake/Output: Intake & Output 10/05/24 10/06/24 10/07/24 10/08/24 23:59 23:59 23:59 23:59 Intake Total 1420 1780 2690 720 Output Total 300 950 450 325 Balance 4817 057 7999 395 Meds/Results Medications: Active Medications Generic Name Dose Route Start Last Admin Trade Name Freq PRN Reason Stop Dose Admin Acetaminophen 650 mg 10/02/24 16:55 Acetaminophen 325 Mg Tablet PO Q4H PRN Mild Pain (1-3) or Fever Hydrocodone Bitart/Acetaminophen 1 tab 10/02/24 16:55 Hydrocodone/Acetaminophen (*Crx) 5-325 Mg Tablet PO Q4H PRN Pain Rated 4-6 Amoxicillin/Clavulanate Potassium 1 tablet 10/06/24 21:00 10/08/24 08:31 Amoxicillin/Clavulanate K 500-125 Mg Tab PO 10/20/24 21:01 1 tablet Q12HR TAMIKA Administration Aspirin 81 mg 10/03/24 09:00 10/08/24 08:32 Aspirin 81 Mg Enteric Tablet PO 81 mg QAM TAMIKA Administration Atorvastatin Calcium 80 mg 10/03/24 09:00 10/08/24 11:11 Atorvastatin 40 Mg Tablet PO 80 mg DAILY TAMIKA Administration Bumetanide 0.5 mg 10/03/24 09:00 10/08/24 08:32 Bumetanide 0.5 Mg Tablet PO 0.5 mg DAILY TAMIKA Administration Buspirone HCl 10 mg 10/03/24 09:00 10/08/24 16:11 Buspirone Hcl 10 Mg Tablet PO 10 mg BID TAMIKA Administration Calcitriol 0.25 mcg 10/03/24 09:00 10/08/24 08:37 Calcitriol 0.25 Mcg Capsule PO 0.25 mcg MoWeFr@0900 TAMIKA Administration Dextrose 12.5 gm 10/02/24 17:35 Dextrose 50% 25 Gm/50 Ml Syringe IV PUSH PRN PRN Hypoglycemia Protocol Docusate Sodium 100 mg 10/03/24 09:00 10/08/24 16:11 Docusate Sodium 100 Mg Capsule PO 100 mg BID TAMIKA Administration Ezetimibe 10 mg 10/03/24 09:00 10/08/24 08:32 Ezetimibe 10 Mg Tablet PO 10 mg DAILY TAMIKA Administration Empagliflozin 25 mg 10/03/24 09:00 10/08/24 08:32 Empagliflozin 25 Mg Tablet BY MOUTH 25 mg QAM TMAIKA Administration Enoxaparin Sodium 40 mg 10/03/24 09:00 10/08/24 08:37 Enoxaparin 40 Mg/0.4 Ml Syringe SUB-Q 40 mg DAILY TAMIKA Administration Glucagon 1 mg 10/02/24 17:35 Glucagon For Inj 1 Mg Vial IM PRN PRN Hypoglycemia Protocol Glucose 15 gm 10/02/24 17:35 Glucose Oral Gel 15 Gm Of Glucse In 37.5 Gm Tube PO PRN PRN Hypoglycemia Protocol Dextrose 1,000 mls @ 100 mls/hr 10/02/24 17:35 Dextrose 5% 1,000 Ml IVPB PRN PRN Hypoglycemia Protocol Insulin Aspart 3 - 6 units 10/03/24 08:00 10/08/24 16:31 Insulin Aspart (*Bkc) 100 Units/Ml SUB-Q Not Given TIDWM [facility] Protocol Insulin Aspart 1 - 3 units 10/02/24 21:00 10/07/24 21:54 Insulin Aspart (*Bkc) 100 Units/Ml SUB-Q Not Given HS [facility] Protocol Insulin Human Regular 25 units 10/03/24 13:00 10/08/24 11:51 Insulin Human Regular (*Bkc) 100 Units/Ml SUB-Q 25 units DAILY@1200 TAMIKA Administration Insulin Human Regular 55 units 10/05/24 08:00 10/08/24 08:31 Insulin Human Regular (*Bkc) 100 Units/Ml SUB-Q 55 units DAILY@0800 TAMIKA Administration Isosorbide Mononitrate 90 mg 10/03/24 09:00 10/08/24 08:31 Isosorbide Mononitrate 30 Mg Tab.Er.24h PO 90 mg DAILY TAMIKA Administration Ondansetron HCl 4 mg 10/02/24 16:55 10/05/24 08:22 Ondansetron Inj 4 Mg/2 Ml Vial IV PUSH 4 mg Q4H PRN Administration Nausea Ondansetron HCl 4 mg 10/02/24 17:35 Ondansetron Inj 4 Mg/2 Ml Vial IV PUSH Q6H PRN Nausea And Vomiting Ondansetron HCl 4 mg 10/06/24 14:41 Ondansetron Inj 4 Mg/2 Ml Vial IV PUSH ONCE PRN Nausea Oxycodone HCl 5 mg 10/06/24 14:41 Oxycodone Hcl (*Crx) 5 Mg Tab Ir PO ONCE PRN Pain Pantoprazole Sodium 40 mg 10/03/24 21:00 10/07/24 21:53 Pantoprazole 40 Mg Tablet PO 40 mg QHS TAMIKA Administration Polyethylene Glycol 17 gm 10/05/24 14:48 Polyethylene Glycol 3350 17 Gm Powd.Pack PO QAM PRN Constipation Propranolol HCl 80 mg 10/03/24 09:00 10/08/24 16:11 Propranolol Hcl 40 Mg Tablet PO 80 mg TID TAMIKA Administration Sertraline HCl 50 mg 10/02/24 23:10 10/08/24 08:32 Sertraline Hcl 50 Mg Tablet BY MOUTH 50 mg DAILY TAMIKA Administration Sodium Zirconium Cyclosilicate 10 gm 10/08/24 11:50 10/08/24 17:12 Sodium Zirconium Cyclosilicate 10 Gm Powd.Pack PO 10 gm BID@1000,1800 TAMIKA Administration Radiology Results: ITS Impressions Foot X-Ray 10/02/24 14:32 IMPRESSION: 1. Nondisplaced fracture of lateral aspect of head of first proximal phalanx. 2. Nondisplaced stellate fracture of tuft of first distal phalanx. 3. Mild polyarticular osteoarthritis. Renal Ultrasound 10/07/24 11:52 IMPRESSION: 1. 3.4 cm mixed solid and cystic lesion at the upper pole the right kidney with 2 cm solid nodular component which is concerning for renal cell carcinoma. Recommend urologic consultation and further evaluation with pre and postcontrast MRI or CT. 2. No hydronephrosis in either kidney. 3. Trabeculated bladder wall which can be seen with neurogenic bladder or chronic outlet obstruction such as in the setting of prostatomegaly. Labs Labs: Laboratory Tests 10/08/24 09:31 10/08/24 09:31 Calcium 8.3 L Total Bilirubin 0.8 AST 52 ALT 54 H Alkaline Phosphatase 116 Total Creatine Kinase 83 Total Protein 6.0 L Albumin 2.9 L Microbiology 10/02/24 17:32 Blood Blood Culture - Final 10/02/24 17:09 Blood Blood Culture - Final
--- NOTE | 2024-10-08 14:59 | P.PNIM_ITS ---
Progress Note: A&P Assessment and Plan (1) Diabetic foot ulcer: Code(s): E11.621 - Type 2 diabetes mellitus with foot ulcer; L97.509 - Non-pressure chronic ulcer of other part of unspecified foot with unspecified severity Status: Acute Assessment and Plan: patient reports injury to right great toe with worsening symptoms patient has severe diabetes and CAD with poor wound healing initial x-ray did show right great toe was also fractured * CRP elevate no WBC * Surgery consulted if debridement or amputation needed * blood cultures no growth today * wound culture ordered * NPO in case of possible procedure * IV cefepime, vancomycin and Flagyl * Will need close glucose control for any type of wound healing patient is a severely uncontrolled diabetic on high-dose insulin 10/04: * Day 1 post-op * Blood cultures NGTD * inoperative wound culture pending * continue with current ABX therapy will de-escalate with Culture and sensitivity * Plan is surgery 10/06 for amputation due to exposed fractured toe 10/05: * Postop day 2 * normal wbc no fever * blood cultures NGTD * wound culture still pending * surgery tomorrow hold morning Lovenox 10/06 10/06: * Amputation 10/06 * Aerobic culture grew Staphylococcus aureus * De-escalated ABX to doxycycline Augmentin times 14 days. 10/07: * Post-op day 2 * Minimal pain * ABX de-escalated based on sensitivities MSSA 10/08 post op day 3 no specific complaints awaiting PT evaluation to return home with HH is what pt wants (2) Fracture of right great toe: Code(s): S92.401A - Displaced unspecified fracture of right great toe, initial encounter for closed fracture Status: Acute Assessment and Plan: * Nondisplaced fracture of lateral aspect of head of first proximal phalanx. * Nondisplaced stellate fracture of tuft of first distal phalanx. * Orthopedics consulted * Pain management * elevate at rest Great toe was Amputated (3) Chronic kidney disease, stage 3b: Code(s): N18.32 - Chronic kidney disease, stage 3b Status: Acute Assessment and Plan: Acute on chronic renal failure Baseline around mid 2.5 * CR 3.32 POA * Currently on vancomycin pharmacy to dose will need to deescalate cultures * Avoid nephrotoxic drugs. * Monitor antihypertensive drug therapy. * Avoid NSAIDs. * Routine CMP monitoring GFR. * Monitor electrolytes especially potassium. * Antibiotic doses depending on creatinine clearance. * Pharmacy does medications. 10/07: * Cr continues to trend up 3.37 today * de-escalated ABX therapy and had IV fluids with no improvement * Nephrology consulted for further evaluation or recommendation baseline mid 2's * Renal US pending 10/08 creat is 4 nephrology rounding see recommendations (4) Type 2 diabetes mellitus with diabetic polyneuropathy: Code(s): E11.42 - Type 2 diabetes mellitus with diabetic polyneuropathy Status: Acute Assessment and Plan: * Diabetic diet * Holding semaglutide * Hemoglobin A1c pending * Accuchecks ACHS * SSI moderate dosing added * Patient is hard to control diabetic on several diabetic medication, and high- dose insulin started conversion to U 100 while hospitalized and adjust as need currently 65u/25u/10u * Continue Jardiance and Zetia (5) Diastolic dysfunction: Onset Date: 03/2022 Code(s): I51.89 - Other ill-defined heart diseases Status: Acute Assessment and Plan: * patient does not appear to be in exacerbation * resumed his home Bumex (6) Presence of aortocoronary bypass graft: Onset Date: 10/2017 Code(s): Z95.1 - Presence of aortocoronary bypass graft Status: Acute Assessment and Plan: * Continue Inderal, aspirin, Lipitor, an imdur, Atorvastatin Plan Subjective Date/time seen: 10/08/24 14:59 Interval history: Patient is a 69 year old male who was admitted for further evaluation and treatment right great toe wound with consult to surgery for possible debridement or amputation pmh dm, ckd as per previous provider: Patient continues admission for cellulitis/diabetic fo ot ulcer of the great right toe as well as fracture patient poor candidate for wound healing surgery amputated on on Friday 10/06 de-escalated ABX based on culture Cr increasing will have nephrology evaluate. 10/07/2024: CR trending up even with de-escalation of ABX therapy and IV fluids will consult nephrology. Patient post-op day 2 amputation cultures and sensitivities reported ABX changed for target therapy MSSA. Patient with minimal pain only with activity but goes away. Denied CP, SOB, N/V, fever or chills. 10/08/2024 awaiting PT evaluation creat still running high at 4 potassium high at 5, UA is positive for protein, glucose and leukocytes, nephrology on board, pt follows with Dr. Caprice Gusman for management of his chronic kidney disease Review of Systems Review of Systems: Pt waiting to walk with PT no specific complaints Exam Narrative: * GENERAL: Alert and oriented x 3. No acute distress. * LUNGS: Clear to auscultation bilaterally. No accessory muscle use. * CARDIOVASCULAR: Regular rate and rhythm. No murmur. No JVD. S1-S2 * ABDOMEN: Soft, non tenderness and non-distended. No palpable masses. * EXTREMITIES: No edema. Right phalange 1st dressing in place, rest of the toes have erythema, dorsal surface of foot with erythema border marked * SKIN: No rashes or lesions. Skin warm, dry. * NEUROLOGIC: No focal neurological deficits. CN II-XII grossly intact Objective Data Vital Signs Vital Signs: Vital Signs - 24 hr 10/07/24 15:55 10/07/24 17:24 10/07/24 20:00 Temperature 35.9 C L 36.1 C L Pulse Rate 61 62 62 Respiratory Rate 18 16 Blood Pressure 132/75 127/70 Pulse Oximetry 99 98 Oxygen Delivery 10/07/24 20:00 10/08/24 05:57 10/08/24 08:00 Temperature 36.1 C L Pulse Rate 64 Respiratory Rate 17 Blood Pressure 136/66 Pulse Oximetry 99 Oxygen Delivery Room Air Room Air 10/08/24 08:32 10/08/24 12:32 Temperature Pulse Rate 64 64 Respiratory Rate Blood Pressure Pulse Oximetry Oxygen Delivery Intake/Output Intake/Output: Intake & Output 10/05/24 10/06/24 10/07/24 10/08/24 23:59 23:59 23:59 23:59 Intake Total 1420 1780 2690 480 Output Total 300 950 450 325 Balance 8841 782 1903 155 Meds/Results Medications: Active Medications Generic Name Dose Route Start Last Admin Trade Name Freq PRN Reason Stop Dose Admin Acetaminophen 650 mg 10/02/24 16:55 Acetaminophen 325 Mg Tablet PO Q4H PRN Mild Pain (1-3) or Fever Hydrocodone Bitart/Acetaminophen 1 tab 10/02/24 16:55 Hydrocodone/Acetaminophen (*Crx) 5-325 Mg Tablet PO Q4H PRN Pain Rated 4-6 Amoxicillin/Clavulanate Potassium 1 tablet 10/06/24 21:00 10/08/24 08:31 Amoxicillin/Clavulanate K 500-125 Mg Tab PO 10/20/24 21:01 1 tablet Q12HR TAMIKA Administration Aspirin 81 mg 10/03/24 09:00 10/08/24 08:32 Aspirin 81 Mg Enteric Tablet PO 81 mg QAM TAMIKA Administration Atorvastatin Calcium 80 mg 10/03/24 09:00 10/08/24 11:11 Atorvastatin 40 Mg Tablet PO 80 mg DAILY TAMIKA Administration Bumetanide 0.5 mg 10/03/24 09:00 10/08/24 08:32 Bumetanide 0.5 Mg Tablet PO 0.5 mg DAILY TAMIKA Administration Buspirone HCl 10 mg 10/03/24 09:00 10/08/24 08:32 Buspirone Hcl 10 Mg Tablet PO 10 mg BID TAMIKA Administration Calcitriol 0.25 mcg 10/03/24 09:00 10/08/24 08:37 Calcitriol 0.25 Mcg Capsule PO 0.25 mcg MoWeFr@0900 TAMIKA Administration Dextrose 12.5 gm 10/02/24 17:35 Dextrose 50% 25 Gm/50 Ml Syringe IV PUSH PRN PRN Hypoglycemia Protocol Docusate Sodium 100 mg 10/03/24 09:00 10/08/24 08:32 Docusate Sodium 100 Mg Capsule PO 100 mg BID [facility] Administration Docusate Sodium 100 mg 10/05/24 21:00 10/08/24 08:32 Docusate Sodium 100 Mg Capsule PO Not Given Q12HR [facility] Doxycycline Hyclate 100 mg 10/06/24 21:00 10/08/24 08:32 Doxycycline Hyclate 100 Mg Tablet PO 10/20/24 21:01 100 mg Q12HR TAMIKA Administration Ezetimibe 10 mg 10/03/24 09:00 10/08/24 08:32 Ezetimibe 10 Mg Tablet PO 10 mg DAILY TAMIKA Administration Empagliflozin 25 mg 10/03/24 09:00 10/08/24 08:32 Empagliflozin 25 Mg Tablet BY MOUTH 25 mg QAM TAMIKA Administration Enoxaparin Sodium 40 mg 10/03/24 09:00 10/08/24 08:37 Enoxaparin 40 Mg/0.4 Ml Syringe SUB-Q 40 mg DAILY TAMIKA Administration Fentanyl Citrate 25 mcg 10/06/24 14:41 Fentanyl Citrate Inj (*Crx) 100 Mcg/2 Ml Vial IV PUSH Q2M PRN Pain Glucagon 1 mg 10/02/24 17:35 Glucagon For Inj 1 Mg Vial IM PRN PRN Hypoglycemia Protocol Glucose 15 gm 10/02/24 17:35 Glucose Oral Gel 15 Gm Of Glucse In 37.5 Gm Tube PO PRN PRN Hypoglycemia Protocol Dextrose 1,000 mls @ 100 mls/hr 10/02/24 17:35 Dextrose 5% 1,000 Ml IVPB PRN PRN Hypoglycemia Protocol Insulin Aspart 3 - 6 units 10/03/24 08:00 10/08/24 11:44 Insulin Aspart (*Bkc) 100 Units/Ml SUB-Q Not Given TIDWM [facility] Protocol Insulin Aspart 1 - 3 units 10/02/24 21:00 10/07/24 21:54 Insulin Aspart (*Bkc) 100 Units/Ml SUB-Q Not Given HS [facility] Protocol Insulin Human Regular 25 units 10/03/24 13:00 10/08/24 11:51 Insulin Human Regular (*Bkc) 100 Units/Ml SUB-Q 25 units DAILY@1200 [facility] Administration Insulin Human Regular 10 units 10/03/24 17:00 10/07/24 17:21 Insulin Human Regular (*Bkc) 100 Units/Ml IV PUSH 10 units DAILY@1700 [facility] Administration Insulin Human Regular 55 units 10/05/24 08:00 10/08/24 08:31 Insulin Human Regular (*Bkc) 100 Units/Ml SUB-Q 55 units DAILY@0800 [facility] Administration Isosorbide Mononitrate 90 mg 10/03/24 09:00 10/08/24 08:31 Isosorbide Mononitrate 30 Mg Tab.Er.24h PO 90 mg DAILY TAMIKA Administration Morphine Sulfate 2 mg 10/02/24 16:55 Morphine Sulfate (*Crx) 2 Mg/Ml Inj IV PUSH Q2H PRN Pain Rated 7-10 Ondansetron HCl 4 mg 10/02/24 16:55 10/05/24 08:22 Ondansetron Inj 4 Mg/2 Ml Vial IV PUSH 4 mg Q4H PRN Administration Nausea Ondansetron HCl 4 mg 10/02/24 17:35 Ondansetron Inj 4 Mg/2 Ml Vial IV PUSH Q6H PRN Nausea And Vomiting Ondansetron HCl 4 mg 10/06/24 14:41 Ondansetron Inj 4 Mg/2 Ml Vial IV PUSH ONCE PRN Nausea Oxycodone HCl 5 mg 10/06/24 14:41 Oxycodone Hcl (*Crx) 5 Mg Tab Ir PO ONCE PRN Pain Pantoprazole Sodium 40 mg 10/03/24 21:00 10/07/24 21:53 Pantoprazole 40 Mg Tablet PO 40 mg QHS TAMIKA Administration Polyethylene Glycol 17 gm 10/05/24 14:48 Polyethylene Glycol 3350 17 Gm Powd.Pack PO QAM PRN Constipation Propranolol HCl 80 mg 10/03/24 09:00 10/08/24 12:32 Propranolol Hcl 40 Mg Tablet PO 80 mg TID TAMIKA Administration Sertraline HCl 50 mg 10/02/24 23:10 10/08/24 08:32 Sertraline Hcl 50 Mg Tablet BY MOUTH 50 mg DAILY TMAIKA Administration Sodium Zirconium Cyclosilicate 10 gm 10/08/24 11:50 10/08/24 12:33 Sodium Zirconium Cyclosilicate 10 Gm Powd.Pack PO 10 gm BID@1000,1800 TAMIKA Administration Radiology Results: ITS Impressions Foot X-Ray 10/02/24 14:32 IMPRESSION: 1. Nondisplaced fracture of lateral aspect of head of first proximal phalanx. 2. Nondisplaced stellate fracture of tuft of first distal phalanx. 3. Mild polyarticular osteoarthritis. Renal Ultrasound 10/07/24 11:52 IMPRESSION: 1. 3.4 cm mixed solid and cystic lesion at the upper pole the right kidney with 2 cm solid nodular component which is concerning for renal cell carcinoma. Recommend urologic consultation and further evaluation with pre and postcontrast MRI or CT. 2. No hydronephrosis in either kidney. 3. Trabeculated bladder wall which can be seen with neurogenic bladder or chronic outlet obstruction such as in the setting of prostatomegaly. Labs Labs: Laboratory Results - last 24 hr 10/07/24 10/07/24 10/07/24 13:28 13:28 16:19 WBC RBC Hgb Hct MCV MCH MCHC RDW Plt Count MPV Sodium Potassium Chloride Carbon Dioxide Anion Gap BUN Creatinine Estim Creat Clear Calc Estimated GFR Glucose POC Capillary Glucose 120 H Calcium Total Bilirubin AST ALT Alkaline Phosphatase Total Creatine Kinase Total Protein Albumin U Random Total Protein > 600 Ur Random Sodium 25 Urine Creatinine 101.2 103.0 Protein/Creat Ratio 2 > 5.83 H 0210/08/24 10/08/24 19:53 07:30 09:31 WBC 11.1 H RBC 3.68 L Hgb 11.1 L Hct 35.6 L MCV 96.7 MCH 30.2 MCHC 31.2 L RDW 14.1 Plt Count 502 H MPV 10.1 Sodium 140 Potassium 5.7 H Chloride 110 H Carbon Dioxide 17 L Anion Gap 13 H BUN 78 H Creatinine 4.05 H Estim Creat Clear Calc 22 Estimated GFR 15 L Glucose 237 H POC Capillary Glucose 134 H 159 H Calcium 8.3 L Total Bilirubin 0.8 AST 52 ALT 54 H Alkaline Phosphatase 116 Total Creatine Kinase 83 Total Protein 6.0 L Albumin 2.9 L U Random Total Protein Ur Random Sodium Urine Creatinine Protein/Creat Ratio 2 10/08/24 11:14 WBC RBC Hgb Hct MCV MCH MCHC RDW Plt Count MPV Sodium Potassium Chloride Carbon Dioxide Anion Gap BUN Creatinine Estim Creat Clear Calc Estimated GFR Glucose POC Capillary Glucose 188 H Calcium Total Bilirubin AST ALT Alkaline Phosphatase Total Creatine Kinase Total Protein Albumin U Random Total Protein Ur Random Sodium Urine Creatinine Protein/Creat Ratio 2
[2024-10-08 16:30] LABS: Glucose Point of Care 133 mg/dl (65-105)
[2024-10-08 20:10] VITALS: BP 136/69; PULSE 64; RESP 18; TEMP 36.4; O2SAT 99
[2024-10-08 21:23] LABS: Glucose Point of Care 168 mg/dl (65-105)
[2024-10-08] MEDS: PANTOPRAZOLE 40 MG TABLET PO (21:56)
[2024-10-08] MEDS: ACETAMINOPHEN 325 MG TABLET 650 MG PO (21:56)
[2024-10-08] MEDS: HYDROcodone/acetaminophen (*CRX) 5-325 MG TABLET 1 TAB PO (22:01)
[2024-10-09 01:00] VITALS: BP 148/71; PULSE 61; RESP 20; TEMP 36.2; O2SAT 99
[2024-10-09 05:00] VITALS: BP 151/70; PULSE 68; RESP 20; TEMP 36.6; O2SAT 100
[2024-10-09 07:42] LABS: Hematocrit 31.6 % (42.0-52.0); Hemoglobin 10.1 g/dL (14.0-18.0); Mean Corpuscular Hemoglobin 31.2 pg (26-34); Mean Corpuscular Volume 97.5 fl (80-100); Mean Platelet Volume 10.6 fl (7.4-10.4); Platelet Count Result 435 k/mm3 (150-375); Red Blood Count 3.24 M/mm3 (4.6-6.20)
[2024-10-09 07:50] LABS: Alanine Aminotransferase 54 U/L (6-50); Albumin Level 2.8 g/dL (3.5-5.1); Alkaline Phosphatase 104 U/L (38-126); Anion Gap 12 mmol/L (4-12); Aspartate Amino Transferase 51 U/L (17-59); Bilirubin,Total 0.7 mg/dL (0.2-1.3); Blood Urea Nitrogen 84 mg/dL (9-20); Calcium 8.3 mg/dL (8.4-10.2); Carbon Dioxide 18 mmol/L (22-30); Chloride 111 mmol/L (98-107); Estimated CRCL calculation 21 ml/min; Estimated Glomerular Filt Rate 14; Glucose 165 mg/dL (65-110); Potassium 4.7 mmol/L (3.4-5.0); Sodium 141 mmol/L (137-145)
[2024-10-09 08:02] LABS: Glucose Point of Care 172 mg/dl (65-105)
[2024-10-09 08:10] VITALS: PULSE 60
[2024-10-09] MEDS: PROPRANOLOL HCL 40 MG TABLET 80 MG PO ×2 (08:10→12:52)
[2024-10-09] MEDS: ASPIRIN 81 MG ENTERIC TABLET PO (08:12)
[2024-10-09] MEDS: SERTRALINE HCL 50 MG TABLET BY MOUTH (08:12)
[2024-10-09] MEDS: AMOXICILLIN/CLAVULANATE K 500-125 MG TAB 1 TABLET PO ×2 (08:12→21:11)
[2024-10-09] MEDS: busPIRone HCL 10 MG TABLET PO (08:12)
[2024-10-09] MEDS: EZETIMIBE 10 MG TABLET PO (08:12)
[2024-10-09] MEDS: EMPAGLIFLOZIN 25 MG TABLET BY MOUTH (08:12)
[2024-10-09] MEDS: DOCUSATE SODIUM 100 MG CAPSULE PO ×2 (08:12→16:05)
[2024-10-09] MEDS: ISOSORBIDE MONONITRATE 30 MG TAB.ER.24H 90 MG PO (08:12)
[2024-10-09] MEDS: ATORVASTATIN 40 MG TABLET 80 MG PO (08:13)
[2024-10-09] MEDS: ENOXAPARIN 40 MG/0.4 ML SYRINGE SUB-Q (08:17)
[2024-10-09] MEDS: INSULIN HUMAN REGULAR (*BKC) 100 UNITS/ML 55 UNITS SUB-Q (08:21)
--- NOTE | 2024-10-09 10:52 | P.DS_ITS ---
DS: Admitting Diagnosis Discharge Date 10/09/2024 DS: Summary Time Spent with Patient Time attestation: Total time spent providing and/or coordinating discharge services: DS: Data Data Completed and Pending Pending studies at discharge: Pending at discharge 10/06/24 12:33 Surgical [PTH] Routine Labs on day of discharge: Labs from last 24 hours 10/09/24 10/09/24 10/08/24 07:45 07:02 20:16 WBC 13.0 H RBC 3.24 L Hgb 10.1 L Hct 31.6 L MCV 97.5 MCH 31.2 MCHC 32.0 RDW 14.0 Plt Count 435 H MPV 10.6 H Sodium 141 Potassium 4.7 Chloride 111 H Carbon Dioxide 18 L Anion Gap 12 BUN 84 H Creatinine 4.30 H Estim Creat Clear Calc 21 Estimated GFR 14 L Glucose 165 H POC Capillary Glucose 172 H 168 H Calcium 8.3 L Total Bilirubin 0.7 AST 51 ALT 54 H Alkaline Phosphatase 104 Total Protein 6.0 L Albumin 2.8 L Ur Random Sodium Urine Creatinine 10/08/24 10/08/24 10/07/24 16:22 11:14 13:28 WBC RBC Hgb Hct MCV MCH MCHC RDW Plt Count MPV Sodium Potassium Chloride Carbon Dioxide Anion Gap BUN Creatinine Estim Creat Clear Calc Estimated GFR Glucose POC Capillary Glucose 133 H 188 H Calcium Total Bilirubin AST ALT Alkaline Phosphatase Total Protein Albumin Ur Random Sodium 25 Urine Creatinine 101.2 Discharge Plan Discharge Attending physician on discharge: Swapna Alford Consulting providers: Jan Jacobsen; Tom Aceves Discharging Clinician: Swapna Alford Anticipated Discharge Date/Time: 10/09/24 10:30 Patient Disposition: Home Health Service Activity: may shower and other - see discharge instructions Diet: heart healthy and diabetic Wound Care Instructions: keep dressing dry Discharge Instructions: Per Care Coordination: [facility] [phone] arranged and will call you regarding first visit. RN please fax discharge orders Increase fluids, rest. May shower but keep dressing clean and dry. Continue with Augmentin twice daily until completed. Follow up with PCP in one week. return to ER with any chest pain, shortness of breath, or worriesome sign or symptom. Patient Instructions: Antibiotic Form Patient Language: Ken[place] Stand Alone Forms: General Discharge Information Follow-up/Referrals: Adrian Owens MD [Primary Care Provider] - (in next week) Discharge Medications: New amoxicillin-pot clavulanate [Augmentin] 500-125 mg Tablet 1 tablet PO Q12HR 14 Days Qty: 28 0RF Continued ranolazine 1,000 mg tablet extended release 12 hr 1,000 mg PO Q12H Zyrtec 10 mg capsule 10 mg PO DAILY PRN (Reason: allergy symptoms) aspirin 81 mg tablet 81 mg PO DAILY fluticasone propionate [Flonase Allergy Relief] 50 mcg/actuation spray,suspension 1 spray intranasal DAILY Rx Instructions: administer into each nostril Gvoke HypoPen 2-Pack 1 mg/0.2 mL auto-injector 1 mg subcut ONCE Qty: 0.4 4RF Rx Instructions: may repeat once after 15 minutes if no response calcitriol 0.25 mcg capsule 0.25 mcg PO 3XW Rx Instructions: takes yio-nsal-rdlxhsf ezetimibe 10 mg tablet 10 mg PO DAILY Ozempic 0.25 mg or 0.5 mg (2 mg/3 mL) pen injector 0.25 mg subcut WEEKLY Rx Instructions: takes on for 1 more week...then 2- increase to 0.5 Humulin R U-500 (Conc) Kwikpen 500 unit/mL (3 mL) insulin pen See Rx Instructions subcut QAM Rx Instructions: 130 units w/ breakfast...50units w/ lunch...20units with dinner giang bcutaneously atorvastatin 80 mg tablet 80 mg PO DAILY 90 Days Qty: 90 3RF (DME) pen needle, diabetic [BD Ultra-Fine Short Pen Needle] 31 gauge x 5/16 needle See Rx Instructions .Route Qty: 100 1RF Rx Instructions: use with insulin once daily (DME) Dexcom G7 [employer] Misc See Rx Instructions .Route Qty: 1 0RF Rx Instructions: As directed to check blood sugars 4 times daily pantoprazole 40 mg tablet,delayed release (DR/EC) 40 mg PO QHS Qty: 90 2RF bumetanide 0.5 mg tablet 0.5 mg PO DAILY Qty: 30 5RF isosorbide mononitrate 60 mg tablet extended release 24 hr 90 mg PO DAILY Qty: 135 2RF buspirone 10 mg tablet 10 mg PO BID Qty: 180 2RF (DME) Dexcom G7 Sensor Device See Rx Instructions .Route Qty: 9 2RF Rx Instructions: As directed sertraline 50 mg tablet See Rx Instructions .ROUTE .COMPLEX Qty: 90 2RF Dose Instruction: TAKE 1 TABLET BY MOUTH EVERY DAY Rx Instructions: TAKE 1 TABLET BY MOUTH EVERY DAY dapagliflozin propanediol [Farxiga] 10 mg tablet 10 mg PO QAM 90 Days Qty: 90 3RF propranolol 80 mg tablet 80 mg PO TID Qty: 270 2RF ondansetron HCl 8 mg tablet 8 mg PO Q8H PRN (Reason: nausea and vomiting) Qty: 20 0RF Date of admission: 10/03/24 09:14 Primary Care Provider: Adrian Owens Admitting Provider: Jeremiah Ramirez Attending physician on admission: Darcie Garcia Condition: Stable
[2024-10-09 11:43] LABS: Glucose Point of Care 220 mg/dl (65-105)
[2024-10-09] MEDS: INSULIN HUMAN REGULAR (*BKC) 100 UNITS/ML 25 UNITS SUB-Q (11:59)
[2024-10-09] MEDS: INSULIN ASPART (*BKC) 100 UNITS/ML SUB-Q (11:59)
[2024-10-09 12:52] VITALS: PULSE 68
[2024-10-09 13:59] VITALS: BP 136/61; PULSE 70; RESP 16; TEMP 36.3; O2SAT 99
--- NOTE | 2024-10-09 14:28 | P.PNNP_ITS ---
Progress Note: A&P Assessment and Plan (1) JUAN CARLOS (acute kidney injury): Code(s): N17.9 - Acute kidney failure, unspecified Status: Acute Assessment and Plan: * as noted on admission - creatinine of 3.32mg/dl * came down to 2.9mg/dl transiently * presumed etiology likely secondary to acute infection - right great toe diabetic foot ulcer + cellulitis * however, cannot discount an element of CKD progression * evaluation to date noted: * renal u/s without hydro but concerning for renal mass * urine electrolytes pre-renal * urine eosinophils noted * UA (from 10/07) suggestive of infection -- culture Annie (but low CFU) * proteinuria noted * CPK normal * holding diuretic therapy for now * s/p trial of IVFS with no real improvement * follow repeat labs and UOP (2) Chronic kidney disease, stage IV (severe): Code(s): N18.4 - Chronic kidney disease, stage 4 (severe) Status: Chronic Assessment and Plan: * baseline creatinine has been running 2.3 - 2.7mg/dl in the last few years * however, last creatinine up to 2.86mg/dl in July 2024 * due to diabetes, hypertension, vascular disease, (CAD + CHF + hyperlipidemia + PVD), and age * follows with Dr. Caprice Gusman for managment of his chronic kidney disease (3) Diabetic foot ulcer: Code(s): E11.621 - Type 2 diabetes mellitus with foot ulcer; L97.509 - Non-pressure chronic ulcer of other part of unspecified foot with unspecified severity Status: Acute Assessment and Plan: * as noted on admission * poor wound healing noted since injury * X-ray with right great toe fracture * complicated by cellulitis of right great toe * s/p right great toe amputation by Surgery (on 10/06) * culture data noted * blood cultures negative * would culture with Staph aureus * on antibiotics * local wound care (4) Diastolic dysfunction: Onset Date: 03/2022 Code(s): I51.89 - Other ill-defined heart diseases Status: Chronic Assessment and Plan: * appears compensated at this time * home diuretic therapy on hold due to #1 * follow volume/respiratory status (5) Anemia: Code(s): D64.9 - Anemia, unspecified Status: Chronic Assessment and Plan: * presumably related to CKD from some contributions from JUAN CARLOS, acute infection, and recent operative procedure * follow trend of H/H * no need for TAMIKO at this time (6) Urinary tract infection: Code(s): N39.0 - Urinary tract infection, site not specified Status: Acute Assessment and Plan: * recent UA (10/07) suggestive * urine culture with low CFU Annie (7) Hypertension: Code(s): I10 - Essential (primary) hypertension Status: Chronic Assessment and Plan: * reasonable control at this time * follow trend of hemodynamics (8) Type 2 diabetes mellitus with diabetic polyneuropathy: Code(s): E11.42 - Type 2 diabetes mellitus with diabetic polyneuropathy Status: Acute Assessment and Plan: * follow accu-checks * brittle control noted - last HgbA1c noted * glycemic control per hospitalist Will continue to follow. L Subjective Date/time seen: 10/09/24 14:28 Interval history: Follow-up for acute kidney injury/acute renal failure on chronic kidney disease. Renal function/creatinine continue to worsen as noted by trend of labs over the past few days; he still reports urine output; reports some nausea and just not feeling well at the time of my visit but difficult for him to elaborate much more than that; no issues/events overnight or earlier this morning. Exam 2 Narrative: General: elderly WD/WN male in NAD Heart: normal S1 and S2; no rub Lungs: clear to auscultation Abdomen: soft, nontender, nondistended, positive bowel sounds Extremities: no cyanosis or clubbing; trace edema Skin: dressings over right foot in place Objective Data Vital Signs Vital Signs: Vital Signs Temp Pulse Resp BP Pulse Ox O2 Del Method 10/09/24 13:59 97.3 F L 70 16 136/61 99 10/09/24 12:52 68 10/09/24 08:10 60 10/09/24 08:00 Room Air 10/09/24 05:00 97.9 F 68 20 151/70 H 100 10/09/24 01:00 97.2 F L 61 20 148/71 H 99 10/08/24 20:10 97.5 F L 64 18 136/69 99 10/08/24 20:00 Room Air Intake/Output Intake/Output: Intake & Output 10/06/24 10/07/24 10/08/24 10/09/24 23:59 23:59 23:59 23:59 Intake Total 1780 2690 720 1100 Output Total 950 450 325 Balance 830 2240 395 1100 Meds/Results Medications: Active Medications Generic Name Dose Route Start Last Admin Trade Name Freq PRN Reason Stop Dose Admin Acetaminophen 650 mg 10/02/24 16:55 10/08/24 21:56 Acetaminophen 325 Mg Tablet PO 650 mg Q4H PRN Administration Mild Pain (1-3) or Fever Hydrocodone Bitart/Acetaminophen 1 tab 10/02/24 16:55 10/08/24 22:01 Hydrocodone/Acetaminophen (*Crx) 5-325 Mg Tablet PO 1 tab Q4H PRN Administration Pain Rated 4-6 Amoxicillin/Clavulanate Potassium 1 tablet 10/06/24 21:00 10/09/24 08:12 Amoxicillin/Clavulanate K 500-125 Mg Tab PO 10/20/24 21:01 1 tablet Q12HR TAMIKA Administration Aspirin 81 mg 10/03/24 09:00 10/09/24 08:12 Aspirin 81 Mg Enteric Tablet PO 81 mg QAM TAMIKA Administration Atorvastatin Calcium 80 mg 10/03/24 09:00 10/09/24 08:13 Atorvastatin 40 Mg Tablet PO 80 mg DAILY TAMIKA Administration Bumetanide 0.5 mg 10/03/24 09:00 10/08/24 08:32 Bumetanide 0.5 Mg Tablet PO 0.5 mg DAILY TAMIKA Administration Buspirone HCl 10 mg 10/03/24 09:00 10/09/24 08:12 Buspirone Hcl 10 Mg Tablet PO 10 mg BID TAMIKA Administration Calcitriol 0.25 mcg 10/03/24 09:00 10/08/24 08:37 Calcitriol 0.25 Mcg Capsule PO 0.25 mcg MoWeFr@0900 TAMIKA Administration Dextrose 12.5 gm 10/02/24 17:35 Dextrose 50% 25 Gm/50 Ml Syringe IV PUSH PRN PRN Hypoglycemia Protocol Docusate Sodium 100 mg 10/03/24 09:00 10/09/24 16:05 Docusate Sodium 100 Mg Capsule PO 100 mg BID TAMIKA Administration Ezetimibe 10 mg 10/03/24 09:00 10/09/24 08:12 Ezetimibe 10 Mg Tablet PO 10 mg DAILY TAMIKA Administration Empagliflozin 25 mg 10/03/24 09:00 10/09/24 08:12 Empagliflozin 25 Mg Tablet BY MOUTH 25 mg QAM TAMIKA Administration Enoxaparin Sodium 30 mg 10/09/24 09:00 10/09/24 10:10 Enoxaparin 30 Mg/0.3 Ml Syringe SUB-Q Not Given DAILY TAMIKA Glucagon 1 mg 10/02/24 17:35 Glucagon For Inj 1 Mg Vial IM PRN PRN Hypoglycemia Protocol Glucose 15 gm 10/02/24 17:35 Glucose Oral Gel 15 Gm Of Glucse In 37.5 Gm Tube PO PRN PRN Hypoglycemia Protocol Dextrose 1,000 mls @ 100 mls/hr 10/02/24 17:35 Dextrose 5% 1,000 Ml IVPB PRN PRN Hypoglycemia Protocol Sodium Chloride 1,000 mls @ 75 mls/hr 10/09/24 16:08 Normal Saline Iv IV CONT 10/10/24 05:27 .[id number] Insulin Aspart 3 - 6 units 10/03/24 08:00 10/09/24 11:59 Insulin Aspart (*Bkc) 100 Units/Ml SUB-Q 3 units TIDWM TAMIKA Administration Protocol Insulin Aspart 1 - 3 units 10/02/24 21:00 10/08/24 21:28 Insulin Aspart (*Bkc) 100 Units/Ml SUB-Q Not Given HS TAMIKA Protocol Insulin Human Regular 25 units 10/03/24 13:00 10/09/24 11:59 Insulin Human Regular (*Bkc) 100 Units/Ml SUB-Q 25 units DAILY@1200 TAMIKA Administration Insulin Human Regular 55 units 10/05/24 08:00 10/09/24 08:21 Insulin Human Regular (*Bkc) 100 Units/Ml SUB-Q 55 units DAILY@0800 TAMIKA Administration Isosorbide Mononitrate 90 mg 10/03/24 09:00 10/09/24 08:12 Isosorbide Mononitrate 30 Mg Tab.Er.24h PO 90 mg DAILY TAMIKA Administration Ondansetron HCl 4 mg 10/02/24 16:55 10/09/24 16:05 Ondansetron Inj 4 Mg/2 Ml Vial IV PUSH 4 mg Q4H PRN Administration Nausea Ondansetron HCl 4 mg 10/02/24 17:35 Ondansetron Inj 4 Mg/2 Ml Vial IV PUSH Q6H PRN Nausea And Vomiting Ondansetron HCl 4 mg 10/06/24 14:41 Ondansetron Inj 4 Mg/2 Ml Vial IV PUSH ONCE PRN Nausea Oxycodone HCl 5 mg 10/06/24 14:41 Oxycodone Hcl (*Crx) 5 Mg Tab Ir PO ONCE PRN Pain Pantoprazole Sodium 40 mg 10/03/24 21:00 10/08/24 21:56 Pantoprazole 40 Mg Tablet PO 40 mg QHS TAMIKA Administration Polyethylene Glycol 17 gm 10/05/24 14:48 Polyethylene Glycol 3350 17 Gm Powd.Pack PO QAM PRN Constipation Propranolol HCl 80 mg 10/03/24 09:00 10/09/24 12:52 Propranolol Hcl 40 Mg Tablet PO 80 mg TID TAMIKA Administration Sertraline HCl 50 mg 10/02/24 23:10 10/09/24 08:12 Sertraline Hcl 50 Mg Tablet BY MOUTH 50 mg DAILY TAMIKA Administration Sodium Zirconium Cyclosilicate 10 gm 10/08/24 11:50 10/08/24 17:12 Sodium Zirconium Cyclosilicate 10 Gm Powd.Pack PO 10 gm BID@1000,1800 TAMIKA Administration Radiology Results: ITS Impressions Foot X-Ray 10/02/24 14:32 IMPRESSION: 1. Nondisplaced fracture of lateral aspect of head of first proximal phalanx. 2. Nondisplaced stellate fracture of tuft of first distal phalanx. 3. Mild polyarticular osteoarthritis. Renal Ultrasound 10/07/24 11:52 IMPRESSION: 1. 3.4 cm mixed solid and cystic lesion at the upper pole the right kidney with 2 cm solid nodular component which is concerning for renal cell carcinoma. Recommend urologic consultation and further evaluation with pre and postcontrast MRI or CT. 2. No hydronephrosis in either kidney. 3. Trabeculated bladder wall which can be seen with neurogenic bladder or chronic outlet obstruction such as in the setting of prostatomegaly. Chest X-Ray 10/09/24 10:38 Impression: Clear lungs. Status post CABG. Labs Labs: Laboratory Tests 10/09/24 07:02 10/09/24 07:02 Calcium 8.3 L Total Bilirubin 0.7 AST 51 ALT 54 H Alkaline Phosphatase 104 Total Protein 6.0 L Albumin 2.8 L Microbiology 10/03/24 15:26 Abscess Anaerobic Culture - Final 10/03/24 15:26 Abscess Aerobic Culture - Final Staphylococcus aureus 10/07/24 13:28 Urine Clean Catch Urine Culture - Final Annie albicans
--- NOTE | 2024-10-09 15:24 | PM.PNGS ---
Progress Note: A&P Assessment and Plan (1) Diabetic foot ulcer: Code(s): E11.621 - Type 2 diabetes mellitus with foot ulcer; L97.509 - Non-pressure chronic ulcer of other part of unspecified foot with unspecified severity Status: Acute Assessment and Plan: Postop day 3 following right great toe ray amputation. Continue local wound care with Xeroform gauze dressing changes. Swelling and redness continues to improve. Okay to discharge home with home health and oral antibiotics. Him and his plan to do dressing changes on the days home health does not come to his house. Follow-up in [address] Aceves for possible suture removal. Francesco drain removed today. He should continue heel-touch weight bearing on RLE. Postop shoe at the bedside for activity. (2) Cellulitis of great toe, right: Code(s): L03.031 - Cellulitis of right toe Status: Acute (3) Fracture of right great toe: Code(s): S92.401A - Displaced unspecified fracture of right great toe, initial encounter for closed fracture Status: Acute (4) Acute on chronic renal failure: Code(s): N17.9 - Acute kidney failure, unspecified; N18.9 - Chronic kidney disease, unspecified Status: Acute Assessment and Plan: Creatinine still slowly rising. 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 Aceves. Subjective Subjective Date/Time Seen: 10/09/24 15:24 Post Op day: 3 Patient reports: no new complaints and afebrile Interval history: No complaints overnight. Patient is set up for home health for discharge. Exam Narrative: Dressing removed from right foot. Right great toe amputation with skin edges loosely approximated on the lateral 1/3 of the wound near the 2nd toe. Francesco drain has migrated out of the wound and is loosely attached at the skin. I removed the suture and francesco drain. Minimal serosanguineous drainage on dressing, no purulent drainage noted. Erythema and swelling continue to imprpove. Objective Data Vital Signs Vital Signs: Vital Signs - 24 hr 10/08/24 20:00 10/08/24 20:10 10/09/24 01:00 Temperature 97.5 F L 97.2 F L Pulse Rate 64 61 Respiratory Rate 18 20 Blood Pressure 136/69 148/71 H Pulse Oximetry 99 99 Oxygen Delivery Room Air 10/09/24 05:00 10/09/24 08:00 10/09/24 08:10 Temperature 97.9 F Pulse Rate 68 60 Respiratory Rate 20 Blood Pressure 151/70 H Pulse Oximetry 100 Oxygen Delivery Room Air 10/09/24 12:52 10/09/24 13:59 Temperature 97.3 F L Pulse Rate 68 70 Respiratory Rate 16 Blood Pressure 136/61 Pulse Oximetry 99 Oxygen Delivery Intake/Output Intake/Output: Intake & Output 10/06/24 10/07/24 10/08/24 10/09/24 23:59 23:59 23:59 23:59 Intake Total 1780 2690 720 1100 Output Total 950 450 325 Balance 830 2240 395 1100 Meds/Results Medications: Active Medications Generic Name Dose Route Start Last Admin Trade Name Freq PRN Reason Stop Dose Admin Acetaminophen 650 mg 10/02/24 16:55 10/08/24 21:56 Acetaminophen 325 Mg Tablet PO 650 mg Q4H PRN Administration Mild Pain (1-3) or Fever Hydrocodone Bitart/Acetaminophen 1 tab 10/02/24 16:55 10/08/24 22:01 Hydrocodone/Acetaminophen (*Crx) 5-325 Mg Tablet PO 1 tab Q4H PRN Administration Pain Rated 4-6 Amoxicillin/Clavulanate Potassium 1 tablet 10/06/24 21:00 10/09/24 08:12 Amoxicillin/Clavulanate K 500-125 Mg Tab PO 10/20/24 21:01 1 tablet Q12HR TAMIKA Administration Aspirin 81 mg 10/03/24 09:00 10/09/24 08:12 Aspirin 81 Mg Enteric Tablet PO 81 mg QAM TAMIKA Administration Atorvastatin Calcium 80 mg 10/03/24 09:00 10/09/24 08:13 Atorvastatin 40 Mg Tablet PO 80 mg DAILY TAMIKA Administration Bumetanide 0.5 mg 10/03/24 09:00 10/08/24 08:32 Bumetanide 0.5 Mg Tablet PO 0.5 mg DAILY TAMIKA Administration Buspirone HCl 10 mg 10/03/24 09:00 10/09/24 08:12 Buspirone Hcl 10 Mg Tablet PO 10 mg BID TAMIKA Administration Calcitriol 0.25 mcg 10/03/24 09:00 10/08/24 08:37 Calcitriol 0.25 Mcg Capsule PO 0.25 mcg MoWeFr@0900 TAMIKA Administration Dextrose 12.5 gm 10/02/24 17:35 Dextrose 50% 25 Gm/50 Ml Syringe IV PUSH PRN PRN Hypoglycemia Protocol Docusate Sodium 100 mg 10/03/24 09:00 10/09/24 08:12 Docusate Sodium 100 Mg Capsule PO 100 mg BID TAMIKA Administration Ezetimibe 10 mg 10/03/24 09:00 10/09/24 08:12 Ezetimibe 10 Mg Tablet PO 10 mg DAILY TAMIKA Administration Empagliflozin 25 mg 10/03/24 09:00 10/09/24 08:12 Empagliflozin 25 Mg Tablet BY MOUTH 25 mg QAM TAMIKA Administration Enoxaparin Sodium 30 mg 10/09/24 09:00 10/09/24 10:10 Enoxaparin 30 Mg/0.3 Ml Syringe SUB-Q Not Given DAILY TAMIKA Glucagon 1 mg 10/02/24 17:35 Glucagon For Inj 1 Mg Vial IM PRN PRN Hypoglycemia Protocol Glucose 15 gm 10/02/24 17:35 Glucose Oral Gel 15 Gm Of Glucse In 37.5 Gm Tube PO PRN PRN Hypoglycemia Protocol Dextrose 1,000 mls @ 100 mls/hr 10/02/24 17:35 Dextrose 5% 1,000 Ml IVPB PRN PRN Hypoglycemia Protocol Sodium Chloride 1,000 mls @ 75 mls/hr 10/09/24 08:40 Normal Saline Iv IV CONT 10/09/24 21:59 .[id number] [facility] Insulin Aspart 3 - 6 units 10/03/24 08:00 10/09/24 11:59 Insulin Aspart (*Bkc) 100 Units/Ml SUB-Q 3 units TIDWM TAMIKA Administration Protocol Insulin Aspart 1 - 3 units 10/02/24 21:00 10/08/24 21:28 Insulin Aspart (*Bkc) 100 Units/Ml SUB-Q Not Given HS [facility] Protocol Insulin Human Regular 25 units 10/03/24 13:00 10/09/24 11:59 Insulin Human Regular (*Bkc) 100 Units/Ml SUB-Q 25 units DAILY@1200 [facility] Administration Insulin Human Regular 55 units 10/05/24 08:00 10/09/24 08:21 Insulin Human Regular (*Bkc) 100 Units/Ml SUB-Q 55 units DAILY@0800 [facility] Administration Isosorbide Mononitrate 90 mg 10/03/24 09:00 10/09/24 08:12 Isosorbide Mononitrate 30 Mg Tab.Er.24h PO 90 mg DAILY TAMIKA Administration Ondansetron HCl 4 mg 10/02/24 16:55 10/05/24 08:22 Ondansetron Inj 4 Mg/2 Ml Vial IV PUSH 4 mg Q4H PRN Administration Nausea Ondansetron HCl 4 mg 10/02/24 17:35 Ondansetron Inj 4 Mg/2 Ml Vial IV PUSH Q6H PRN Nausea And Vomiting Ondansetron HCl 4 mg 10/06/24 14:41 Ondansetron Inj 4 Mg/2 Ml Vial IV PUSH ONCE PRN Nausea Oxycodone HCl 5 mg 10/06/24 14:41 Oxycodone Hcl (*Crx) 5 Mg Tab Ir PO ONCE PRN Pain Pantoprazole Sodium 40 mg 10/03/24 21:00 10/08/24 21:56 Pantoprazole 40 Mg Tablet PO 40 mg QHS [facility] Administration Polyethylene Glycol 17 gm 10/05/24 14:48 Polyethylene Glycol 3350 17 Gm Powd.Pack PO QAM PRN Constipation Propranolol HCl 80 mg 10/03/24 09:00 10/09/24 12:52 Propranolol Hcl 40 Mg Tablet PO 80 mg TID [facility] Administration Sertraline HCl 50 mg 10/02/24 23:10 10/09/24 08:12 Sertraline Hcl 50 Mg Tablet BY MOUTH 50 mg DAILY [facility] Administration Sodium Zirconium Cyclosilicate 10 gm 10/08/24 11:50 10/08/24 17:12 Sodium Zirconium Cyclosilicate 10 Gm Powd.Pack PO 10 gm BID@1000,1800 [facility] Administration Radiology Results: ITS Impressions Foot X-Ray 10/02/24 14:32 IMPRESSION: 1. Nondisplaced fracture of lateral aspect of head of first proximal phalanx. 2. Nondisplaced stellate fracture of tuft of first distal phalanx. 3. Mild polyarticular osteoarthritis. Renal Ultrasound 10/07/24 11:52 IMPRESSION: 1. 3.4 cm mixed solid and cystic lesion at the upper pole the right kidney with 2 cm solid nodular component which is concerning for renal cell carcinoma. Recommend urologic consultation and further evaluation with pre and postcontrast MRI or CT. 2. No hydronephrosis in either kidney. 3. Trabeculated bladder wall which can be seen with neurogenic bladder or chronic outlet obstruction such as in the setting of prostatomegaly. Chest X-Ray 10/09/24 10:38 Impression: Clear lungs. Status post CABG. Labs Labs: Laboratory Results - last 24 hr 10/08/24 10/08/24 10/09/24 16:22 20:16 07:02 WBC 13.0 H RBC 3.24 L Hgb 10.1 L Hct 31.6 L MCV 97.5 MCH 31.2 MCHC 32.0 RDW 14.0 Plt Count 435 H MPV 10.6 H Sodium 141 Potassium 4.7 Chloride 111 H Carbon Dioxide 18 L Anion Gap 12 BUN 84 H Creatinine 4.30 H Estim Creat Clear Calc 21 Estimated GFR 14 L Glucose 165 H POC Capillary Glucose 133 H 168 H Calcium 8.3 L Total Bilirubin 0.7 AST 51 ALT 54 H Alkaline Phosphatase 104 Total Protein 6.0 L Albumin 2.8 L 10/09/24 10/09/24 07:45 11:30 WBC RBC Hgb Hct MCV MCH MCHC RDW Plt Count MPV Sodium Potassium Chloride Carbon Dioxide Anion Gap BUN Creatinine Estim Creat Clear Calc Estimated GFR Glucose POC Capillary Glucose 172 H 220 H Calcium Total Bilirubin AST ALT Alkaline Phosphatase Total Protein Albumin
--- NOTE | 2024-10-09 16:00 | P.PNIM_ITS ---
Progress Note: A&P Assessment and Plan (1) Diabetic foot ulcer: Code(s): E11.621 - Type 2 diabetes mellitus with foot ulcer; L97.509 - Non-pressure chronic ulcer of other part of unspecified foot with unspecified severity Status: Acute Assessment and Plan: patient reports injury to right great toe with worsening symptoms patient has severe diabetes and CAD with poor wound healing initial x-ray did show right great toe was also fractured * CRP elevate no WBC * Surgery consulted if debridement or amputation needed * blood cultures no growth today * wound culture ordered * NPO in case of possible procedure * IV cefepime, vancomycin and Flagyl * Will need close glucose control for any type of wound healing patient is a severely uncontrolled diabetic on high-dose insulin 10/04: * Day 1 post-op * Blood cultures NGTD * inoperative wound culture pending * continue with current ABX therapy will de-escalate with Culture and sensitivity * Plan is surgery 10/06 for amputation due to exposed fractured toe 10/05: * Postop day 2 * normal wbc no fever * blood cultures NGTD * wound culture still pending * surgery tomorrow hold morning Lovenox 10/06 10/06: * Amputation 10/06 * Aerobic culture grew Staphylococcus aureus * De-escalated ABX to doxycycline Augmentin times 14 days. 10/07: * Post-op day 2 * Minimal pain * ABX de-escalated based on sensitivities MSSA * 10/08 post op day 3 no specific complaints awaiting PT evaluation to return home with HH is what pt wants 10/09 - will continue current Augmentin and wound treatment plan (2) Fracture of right great toe: Code(s): S92.401A - Displaced unspecified fracture of right great toe, initial encounter for closed fracture Status: Acute Assessment and Plan: * Nondisplaced fracture of lateral aspect of head of first proximal phalanx. * Nondisplaced stellate fracture of tuft of first distal phalanx. * Orthopedics consulted * Pain management * elevate at rest Great toe was Amputated - wound management doing well. (3) Chronic kidney disease, stage 3b: Code(s): N18.32 - Chronic kidney disease, stage 3b Status: Acute Assessment and Plan: Acute on chronic renal failure Baseline around mid 2.5 * CR 3.32 POA * Currently on vancomycin pharmacy to dose will need to deescalate cultures * Avoid nephrotoxic drugs. * Monitor antihypertensive drug therapy. * Avoid NSAIDs. * Routine CMP monitoring GFR. * Monitor electrolytes especially potassium. * Antibiotic doses depending on creatinine clearance. * Pharmacy does medications. 10/07: * Cr continues to trend up 3.37 today * de-escalated ABX therapy and had IV fluids with no improvement * Nephrology consulted for further evaluation or recommendation baseline mid 2's * Renal US pending 10/08 creat is 4 nephrology rounding see recommendations 10/09 - creat - 4.30, BUN 84, GFR 14. Nephrology aware and monitoring. --> will give 1 liter of IV fluids today (4) Type 2 diabetes mellitus with diabetic polyneuropathy: Code(s): E11.42 - Type 2 diabetes mellitus with diabetic polyneuropathy Status: Acute Assessment and Plan: * Diabetic diet * Holding semaglutide * Hemoglobin A1c pending * Accuchecks ACHS * SSI moderate dosing added * Patient is hard to control diabetic on several diabetic medication, and high- dose insulin started conversion to U 100 while hospitalized and adjust as need currently 65u/25u/10u * Continue Jardiance and Zetia (5) Diastolic dysfunction: Onset Date: 03/2022 Code(s): I51.89 - Other ill-defined heart diseases Status: Chronic Assessment and Plan: * patient does not appear to be in exacerbation * resumed his home Bumex (6) Presence of aortocoronary bypass graft: Onset Date: 10/2017 Code(s): Z95.1 - Presence of aortocoronary bypass graft Status: Acute Assessment and Plan: * Continue Inderal, aspirin, Lipitor, an imdur, Atorvastatin Plan Time Spent With Patient Time with patient: Greater than 35 minutes Subjective Date/time seen: 10/09/24 08:00 Interval history: Patient reports today he has no pain in foot or toe area at all. Dressing change completed. Renal function/creatinine a bit worse by AM labs, BUN 84, creat 4.30,GFR 14, associated with mild hyperkalemia as well however, still making urine per patient report; Patient was wanting to discharge home today, no other acute issues/complaints voiced at this time; feels reasonably well. Review of Systems Review of Systems: Pt waiting to walk with PT no specific complaints All systems reviewed & are unremarkable except as noted in HPI and below Exam Narrative: * GENERAL: Alert and oriented x 3. No acute distress. * LUNGS: Clear to auscultation bilaterally. No accessory muscle use. * CARDIOVASCULAR: Regular rate and rhythm. No murmur. No JVD. S1-S2 * ABDOMEN: Soft, non tenderness and non-distended. No palpable masses. * EXTREMITIES: No edema. Right phalange 1st dressing in place, rest of the toes have erythema, dorsal surface of foot with erythema border marked * SKIN: No rashes or lesions. Skin warm, dry. * NEUROLOGIC: No focal neurological deficits. CN II-XII grossly intact Objective Data Vital Signs Vital Signs: Vital Signs - 24 hr 10/08/24 20:00 10/08/24 20:10 10/09/24 01:00 Temperature 97.5 F L 97.2 F L Pulse Rate 64 61 Respiratory Rate 18 20 Blood Pressure 136/69 148/71 H Pulse Oximetry 99 99 Oxygen Delivery Room Air 10/09/24 05:00 10/09/24 08:00 10/09/24 08:10 Temperature 97.9 F Pulse Rate 68 60 Respiratory Rate 20 Blood Pressure 151/70 H Pulse Oximetry 100 Oxygen Delivery Room Air 10/09/24 12:52 10/09/24 13:59 Temperature 97.3 F L Pulse Rate 68 70 Respiratory Rate 16 Blood Pressure 136/61 Pulse Oximetry 99 Oxygen Delivery Intake/Output Intake/Output: Intake & Output 10/06/24 10/07/24 10/08/24 10/09/24 23:59 23:59 23:59 23:59 Intake Total 1780 2690 720 1100 Output Total 950 450 325 Balance 830 2240 395 1100 Meds/Results Medications: Active Medications Generic Name Dose Route Start Last Admin Trade Name Freq PRN Reason Stop Dose Admin Acetaminophen 650 mg 10/02/24 16:55 10/08/24 21:56 Acetaminophen 325 Mg Tablet PO 650 mg Q4H PRN Administration Mild Pain (1-3) or Fever Hydrocodone Bitart/Acetaminophen 1 tab 10/02/24 16:55 10/08/24 22:01 Hydrocodone/Acetaminophen (*Crx) 5-325 Mg Tablet PO 1 tab Q4H PRN Administration Pain Rated 4-6 Amoxicillin/Clavulanate Potassium 1 tablet 10/06/24 21:00 10/09/24 08:12 Amoxicillin/Clavulanate K 500-125 Mg Tab PO 10/20/24 21:01 1 tablet Q12HR TAMIKA Administration Aspirin 81 mg 10/03/24 09:00 10/09/24 08:12 Aspirin 81 Mg Enteric Tablet PO 81 mg QAM TAMIKA Administration Atorvastatin Calcium 80 mg 10/03/24 09:00 10/09/24 08:13 Atorvastatin 40 Mg Tablet PO 80 mg DAILY TAMIKA Administration Bumetanide 0.5 mg 10/03/24 09:00 10/08/24 08:32 Bumetanide 0.5 Mg Tablet PO 0.5 mg DAILY TAMIKA Administration Buspirone HCl 10 mg 10/03/24 09:00 10/09/24 08:12 Buspirone Hcl 10 Mg Tablet PO 10 mg BID [facility] Administration Calcitriol 0.25 mcg 10/03/24 09:00 10/08/24 08:37 Calcitriol 0.25 Mcg Capsule PO 0.25 mcg MoWeFr@0900 [facility] Administration Dextrose 12.5 gm 10/02/24 17:35 Dextrose 50% 25 Gm/50 Ml Syringe IV PUSH PRN PRN Hypoglycemia Protocol Docusate Sodium 100 mg 10/03/24 09:00 10/09/24 08:12 Docusate Sodium 100 Mg Capsule PO 100 mg BID [facility] Administration Ezetimibe 10 mg 10/03/24 09:00 10/09/24 08:12 Ezetimibe 10 Mg Tablet PO 10 mg DAILY [facility] Administration Empagliflozin 25 mg 10/03/24 09:00 10/09/24 08:12 Empagliflozin 25 Mg Tablet BY MOUTH 25 mg QAM [facility] Administration Enoxaparin Sodium 30 mg 10/09/24 09:00 10/09/24 10:10 Enoxaparin 30 Mg/0.3 Ml Syringe SUB-Q Not Given DAILY [facility] Glucagon 1 mg 10/02/24 17:35 Glucagon For Inj 1 Mg Vial IM PRN PRN Hypoglycemia Protocol Glucose 15 gm 10/02/24 17:35 Glucose Oral Gel 15 Gm Of Glucse In 37.5 Gm Tube PO PRN PRN Hypoglycemia Protocol Dextrose 1,000 mls @ 100 mls/hr 10/02/24 17:35 Dextrose 5% 1,000 Ml IVPB PRN PRN Hypoglycemia Protocol Sodium Chloride 1,000 mls @ 75 mls/hr 10/09/24 08:40 Normal Saline Iv IV CONT 10/09/24 21:59 .[id number] TAMIKA Insulin Aspart 3 - 6 units 10/03/24 08:00 10/09/24 11:59 Insulin Aspart (*Bkc) 100 Units/Ml SUB-Q 3 units TIDWM [facility] Administration Protocol Insulin Aspart 1 - 3 units 10/02/24 21:00 10/08/24 21:28 Insulin Aspart (*Bkc) 100 Units/Ml SUB-Q Not Given HS [facility] Protocol Insulin Human Regular 25 units 10/03/24 13:00 10/09/24 11:59 Insulin Human Regular (*Bkc) 100 Units/Ml SUB-Q 25 units DAILY@1200 [facility] Administration Insulin Human Regular 55 units 10/05/24 08:00 10/09/24 08:21 Insulin Human Regular (*Bkc) 100 Units/Ml SUB-Q 55 units DAILY@0800 [facility] Administration Isosorbide Mononitrate 90 mg 10/03/24 09:00 10/09/24 08:12 Isosorbide Mononitrate 30 Mg Tab.Er.24h PO 90 mg DAILY [facility] Administration Ondansetron HCl 4 mg 10/02/24 16:55 10/05/24 08:22 Ondansetron Inj 4 Mg/2 Ml Vial IV PUSH 4 mg Q4H PRN Administration Nausea Ondansetron HCl 4 mg 10/02/24 17:35 Ondansetron Inj 4 Mg/2 Ml Vial IV PUSH Q6H PRN Nausea And Vomiting Ondansetron HCl 4 mg 10/06/24 14:41 Ondansetron Inj 4 Mg/2 Ml Vial IV PUSH ONCE PRN Nausea Oxycodone HCl 5 mg 10/06/24 14:41 Oxycodone Hcl (*Crx) 5 Mg Tab Ir PO ONCE PRN Pain Pantoprazole Sodium 40 mg 10/03/24 21:00 10/08/24 21:56 Pantoprazole 40 Mg Tablet PO 40 mg QHS [facility] Administration Polyethylene Glycol 17 gm 10/05/24 14:48 Polyethylene Glycol 3350 17 Gm Powd.Pack PO QAM PRN Constipation Propranolol HCl 80 mg 10/03/24 09:00 10/09/24 12:52 Propranolol Hcl 40 Mg Tablet PO 80 mg TID [facility] Administration Sertraline HCl 50 mg 10/02/24 23:10 10/09/24 08:12 Sertraline Hcl 50 Mg Tablet BY MOUTH 50 mg DAILY [facility] Administration Sodium Zirconium Cyclosilicate 10 gm 10/08/24 11:50 10/08/24 17:12 Sodium Zirconium Cyclosilicate 10 Gm Powd.Pack PO 10 gm BID@1000,1800 TAMIKA Administration Radiology Results: ITS Impressions Foot X-Ray 10/02/24 14:32 IMPRESSION: 1. Nondisplaced fracture of lateral aspect of head of first proximal phalanx. 2. Nondisplaced stellate fracture of tuft of first distal phalanx. 3. Mild polyarticular osteoarthritis. Renal Ultrasound 10/07/24 11:52 IMPRESSION: 1. 3.4 cm mixed solid and cystic lesion at the upper pole the right kidney with 2 cm solid nodular component which is concerning for renal cell carcinoma. Recommend urologic consultation and further evaluation with pre and postcontrast MRI or CT. 2. No hydronephrosis in either kidney. 3. Trabeculated bladder wall which can be seen with neurogenic bladder or chronic outlet obstruction such as in the setting of prostatomegaly. Chest X-Ray 10/09/24 10:38 Impression: Clear lungs. Status post CABG. Labs Labs: Laboratory Results - last 24 hr 10/08/24 10/08/24 10/09/24 16:22 20:16 07:02 WBC 13.0 H RBC 3.24 L Hgb 10.1 L Hct 31.6 L MCV 97.5 MCH 31.2 MCHC 32.0 RDW 14.0 Plt Count 435 H MPV 10.6 H Sodium 141 Potassium 4.7 Chloride 111 H Carbon Dioxide 18 L Anion Gap 12 BUN 84 H Creatinine 4.30 H Estim Creat Clear Calc 21 Estimated GFR 14 L Glucose 165 H POC Capillary Glucose 133 H 168 H Calcium 8.3 L Total Bilirubin 0.7 AST 51 ALT 54 H Alkaline Phosphatase 104 Total Protein 6.0 L Albumin 2.8 L 10/09/24 10/09/24 07:45 11:30 WBC RBC Hgb Hct MCV MCH MCHC RDW Plt Count MPV Sodium Potassium Chloride Carbon Dioxide Anion Gap BUN Creatinine Estim Creat Clear Calc Estimated GFR Glucose POC Capillary Glucose 172 H 220 H Calcium Total Bilirubin AST ALT Alkaline Phosphatase Total Protein Albumin Quality VTE Prophylaxis VTE prophylaxis: mechanical ordered and pharmacologic ordered Hospitalist MIPS Advance Care Plan I have confirmed that the patient's Advanced Care Plan is present, code status is documented, or surrogate decision maker is listed in patient medical record.: Yes Medication Reconciliation I have utilized all available resources to obtain, update and review the patients current medications (includes all prescriptions, OTC, herbals, cannabis, and nutritional supplements).: Yes
[2024-10-09] MEDS: SODIUM CHLORIDE 0.9% IV 1,000 ML 75 ML IV CONT (16:05)
[2024-10-09] MEDS: ONDANSETRON INJ 4 MG/2 ML VIAL IV PUSH (16:05)
[2024-10-09 16:48] LABS: Glucose Point of Care 88 mg/dl (65-105)
[2024-10-09 20:00] VITALS: BP 151/71; PULSE 66; RESP 18; TEMP 36.7; O2SAT 100
[2024-10-09] MEDS: PANTOPRAZOLE 40 MG TABLET PO (21:10)
[2024-10-09 21:35] LABS: Glucose Point of Care 107 mg/dl (65-105)
[2024-10-09 21:35] LABS: Glucose Point of Care 59 mg/dl (65-105)
[2024-10-09 21:35] LABS: Glucose Point of Care 78 mg/dl (65-105)
[2024-10-10] VITALS (13 sets, daily range): BP systolic 107–142; BP diastolic 54–75; PULSE 65–75; RESP 18–20; TEMP 36.9–38.2; O2SAT 96–99
[2024-10-10 00:38] LABS: Glucose Point of Care 119 mg/dl (65-105)
[2024-10-10] MEDS: HYDROcodone/acetaminophen (*CRX) 5-325 MG TABLET 1 TAB PO (06:53)
--- NOTE | 2024-10-10 06:58 | PC.NURSE ---
Pt stated he did not urinate much last night and does not feel the urge to urinate. Bladder scan showed 643ml of urine. Straight catheter attempted but coiled in penis. Urology consult ordered.
[2024-10-10 07:21] LABS: Hematocrit 28.6 % (42.0-52.0); Mean Corpuscular HGB Conc 31.5 g/dl (32-36); Mean Corpuscular Hemoglobin 29.8 pg (26-34); Mean Corpuscular Volume 94.7 fl (80-100); Mean Platelet Volume 10.4 fl (7.4-10.4); Platelet Count Result 354 k/mm3 (150-375); Red Blood Count 3.02 M/mm3 (4.6-6.20); Red Cell Distribution Width 13.9 % (11.5-14.5); White Blood Count 8.2 K/mm3 (4.5-10.0)
[2024-10-10 07:41] LABS: Alanine Aminotransferase 52 U/L (6-50); Albumin Level 2.8 g/dL (3.5-5.1); Alkaline Phosphatase 111 U/L (38-126); Anion Gap 12 mmol/L (4-12); Aspartate Amino Transferase 49 U/L (17-59); Bilirubin,Total 0.7 mg/dL (0.2-1.3); Blood Urea Nitrogen 81 mg/dL (9-20); Carbon Dioxide 15 mmol/L (22-30); Chloride 109 mmol/L (98-107); Estimated CRCL calculation 20 ml/min; Estimated Glomerular Filt Rate 13; Glucose 135 mg/dL (65-110); Potassium 4.5 mmol/L (3.4-5.0); Sodium 136 mmol/L (137-145)
[2024-10-10 08:12] LABS: Glucose Point of Care 154 mg/dl (65-105)
--- NOTE | 2024-10-10 08:47 | P.PNIM_ITS ---
Progress Note: A&P Assessment and Plan (1) Diabetic foot ulcer: Code(s): E11.621 - Type 2 diabetes mellitus with foot ulcer; L97.509 - Non-pressure chronic ulcer of other part of unspecified foot with unspecified severity Status: Acute Assessment and Plan: patient reports injury to right great toe with worsening symptoms patient has severe diabetes and CAD with poor wound healing initial x-ray did show right great toe was also fractured * CRP elevate no WBC * Surgery consulted if debridement or amputation needed * blood cultures no growth today * wound culture ordered * NPO in case of possible procedure * IV cefepime, vancomycin and Flagyl * Will need close glucose control for any type of wound healing patient is a severely uncontrolled diabetic on high-dose insulin 10/04: * Day 1 post-op * Blood cultures NGTD * inoperative wound culture pending * continue with current ABX therapy will de-escalate with Culture and sensitivity * Plan is surgery 10/06 for amputation due to exposed fractured toe 10/05: * Postop day 2 * normal wbc no fever * blood cultures NGTD * wound culture still pending * surgery tomorrow hold morning Lovenox 10/06 10/06: * Amputation 10/06 * Aerobic culture grew Staphylococcus aureus * De-escalated ABX to doxycycline Augmentin times 14 days. 10/07: * Post-op day 2 * Minimal pain * ABX de-escalated based on sensitivities MSSA * 10/08 post op day 3 no specific complaints awaiting PT evaluation to return home with HH is what pt wants 10/09 - will continue current Augmentin and wound treatment plan 10/10 - will continue current plan of treatment (2) Fracture of right great toe: Code(s): S92.401A - Displaced unspecified fracture of right great toe, initial encounter for closed fracture Status: Acute Assessment and Plan: * Nondisplaced fracture of lateral aspect of head of first proximal phalanx. * Nondisplaced stellate fracture of tuft of first distal phalanx. * Orthopedics consulted * Pain management * elevate at rest * Great toe was Amputated - wound management doing well. (3) Chronic kidney disease, stage 3b: Code(s): N18.32 - Chronic kidney disease, stage 3b Status: Acute Assessment and Plan: Acute on chronic renal failure Baseline around mid 2.5 * CR 3.32 POA * Currently on vancomycin pharmacy to dose will need to deescalate cultures * Avoid nephrotoxic drugs. * Monitor antihypertensive drug therapy. * Avoid NSAIDs. * Routine CMP monitoring GFR. * Monitor electrolytes especially potassium. * Antibiotic doses depending on creatinine clearance. * Pharmacy does medications. 10/07: * Cr continues to trend up 3.37 today * de-escalated ABX therapy and had IV fluids with no improvement * Nephrology consulted for further evaluation or recommendation baseline mid 2's * Renal US pending 10/08 creat is 4 nephrology rounding see recommendations 10/09 - creat - 4.30, BUN 84, GFR 14. Nephrology aware and monitoring. --> will give 1 liter of IV fluids today 10/10 - creat - 4.57, BUN 81, GFR 13, Nephrology aware and monitoring --> Nephrology to follow. Stopped Bumex prior, worsening Renal function. (4) Type 2 diabetes mellitus with diabetic polyneuropathy: Code(s): E11.42 - Type 2 diabetes mellitus with diabetic polyneuropathy Status: Acute Assessment and Plan: * Diabetic diet * Holding semaglutide * Hemoglobin A1c pending * Accuchecks ACHS * SSI moderate dosing added * Patient is hard to control diabetic on several diabetic medication, and high- dose insulin started conversion to U 100 while hospitalized and adjust as need currently 65u/25u/10u * Continue Jardiance and Zetia (5) Diastolic dysfunction: Onset Date: 03/2022 Code(s): I51.89 - Other ill-defined heart diseases Status: Chronic Assessment and Plan: * patient does not appear to be in exacerbation * stopped Bumex (6) Presence of aortocoronary bypass graft: Onset Date: 10/2017 Code(s): Z95.1 - Presence of aortocoronary bypass graft Status: Acute Assessment and Plan: * Continue Inderal, aspirin, Lipitor, an imdur, Atorvastatin Plan Time Spent With Patient Time with patient: Greater than 35 minutes Subjective Date/time seen: 10/10/24 08:47 Interval history: Patient reports today he has no pain in foot or toe area at all. Dressing change completed. Renal function/creatinine a bit worse by AM labs, BUN 81, creat 4.57, GFR 13, associated with mild hyperkalemia as well however, still making urine per patient report, did urinate this am. denies any distress. Review of Systems Review of Systems: All systems reviewed & are unremarkable except as noted in HPI and below Constitutional: Constitutional: Reports no additional constitutional complaints Eyes: Eyes: Reports no additional eye complaints ENT: Reports system reviewed and no additional complaints, except as documented Cardiovascular: Cardiovascular: Reports no additional cardiovascular complaints Respiratory: Respiratory: Reports no additional respiratory complaints Gastrointestinal: Gastrointestinal: Reports no additional gastrointestinal complaints Musculoskeletal: Musculoskeletal: Reports as per HPI Integumentary/Breasts: Skin/Breast: Reports as per HPI Neurologic: Reports as per HPI Psychiatric: Psychiatric: Reports as per HPI Exam Const: General: cooperative, comfortable, alert and awake HENMT: Head: normal to inspection, No palpable skull fracture present and normocephalic Eyes: General: appearance normal, both eyes and all related structures Neck: Neck: normal visual inspection, full ROM and no lymphadenopathy Chest: Chest palpation & inspection: normal inspection of the chest Resp: Effort & Inspection: normal respiratory effort and able to speak in complete sentences Auscultation: clear to auscultation bilaterally Cardio: Jugular venous distension: no JVD Palpation: normal PMI Rate: regular rate Rhythm: regular rhythm Heart sounds: S1 normal heart sound present and S2 normal heart sound present GI: Inspection: normal to inspection GI Palp: Yes Soft to palpation Auscultation: normal bowel sounds Skin: General skin exam: normal color and no rashes or lesions noted Wounds: wounds noted right foot drainage and other (dressing dry with slight bloody drainage noted. ) Neuro: General: oriented to person, oriented to place, oriented to time, tone normal and moves all extremities Extrem: General: full ROM Right lower extremity: foot (drsg dry and intact today. ) Psych: Appearance: grossly normal Mental Status: mental status grossly no rmal Speech and movement: Normal speech and movement present Objective Data Vital Signs Vital Signs: Vital Signs - 24 hr 10/09/24 12:52 10/09/24 13:59 10/09/24 20:00 Temperature 97.3 F L 98.1 F Pulse Rate 68 70 66 Respiratory Rate 16 18 Blood Pressure 136/61 151/71 H Pulse Oximetry 99 100 Oxygen Delivery 10/09/24 21:10 10/10/24 00:30 10/10/24 04:40 Temperature 99.6 F 99.2 F Pulse Rate 74 72 Respiratory Rate 18 20 Blood Pressure 131/54 L 142/66 H Pulse Oximetry 99 99 Oxygen Delivery Room Air Intake/Output Intake/Output: Intake & Output 10/07/24 10/08/24 10/09/24 10/10/24 23:59 23:59 23:59 23:59 Intake Total 2690 720 1340 1744 Output Total 450 325 125 Balance 2240 395 1215 1744 Meds/Results Medications: Active Medications Generic Name Dose Route Start Last Admin Trade Name Freq PRN Reason Stop Dose Admin Acetaminophen 650 mg 10/02/24 16:55 10/08/24 21:56 Acetaminophen 325 Mg Tablet PO 650 mg Q4H PRN Administration Mild Pain (1-3) or Fever Hydrocodone Bitart/Acetaminophen 1 tab 10/02/24 16:55 10/10/24 06:53 Hydrocodone/Acetaminophen (*Crx) 5-325 Mg Tablet PO 1 tab Q4H PRN Administration Pain Rated 4-6 Amoxicillin/Clavulanate Potassium 1 tablet 10/06/24 21:00 10/09/24 21:11 Amoxicillin/Clavulanate K 500-125 Mg Tab PO 10/20/24 21:01 1 tablet Q12HR TAMIKA Administration Aspirin 81 mg 10/03/24 09:00 10/09/24 08:12 Aspirin 81 Mg Enteric Tablet PO 81 mg QAM TAMIKA Administration Atorvastatin Calcium 80 mg 10/03/24 09:00 10/09/24 08:13 Atorvastatin 40 Mg Tablet PO 80 mg DAILY TAMIKA Administration Bumetanide 0.5 mg 10/03/24 09:00 10/08/24 08:32 Bumetanide 0.5 Mg Tablet PO 0.5 mg DAILY TAMIKA Administration Buspirone HCl 10 mg 10/03/24 09:00 10/09/24 19:24 Buspirone Hcl 10 Mg Tablet PO Not Given BID TAMIKA Calcitriol 0.25 mcg 10/03/24 09:00 10/08/24 08:37 Calcitriol 0.25 Mcg Capsule PO 0.25 mcg MoWeFr@0900 TAMIKA Administration Dextrose 12.5 gm 10/02/24 17:35 Dextrose 50% 25 Gm/50 Ml Syringe IV PUSH PRN PRN Hypoglycemia Protocol Docusate Sodium 100 mg 10/03/24 09:00 10/09/24 16:05 Docusate Sodium 100 Mg Capsule PO 100 mg BID TAMIKA Administration Ezetimibe 10 mg 10/03/24 09:00 10/09/24 08:12 Ezetimibe 10 Mg Tablet PO 10 mg DAILY TAMIKA Administration Empagliflozin 25 mg 10/03/24 09:00 10/09/24 08:12 Empagliflozin 25 Mg Tablet BY MOUTH 25 mg QAM [facility] Administration Enoxaparin Sodium 30 mg 10/09/24 09:00 10/09/24 10:10 Enoxaparin 30 Mg/0.3 Ml Syringe SUB-Q Not Given DAILY TAMIKA Glucagon 1 mg 10/02/24 17:35 Glucagon For Inj 1 Mg Vial IM PRN PRN Hypoglycemia Protocol Glucose 15 gm 10/02/24 17:35 Glucose Oral Gel 15 Gm Of Glucse In 37.5 Gm Tube PO PRN PRN Hypoglycemia Protocol Dextrose 1,000 mls @ 100 mls/hr 10/02/24 17:35 Dextrose 5% 1,000 Ml IVPB PRN PRN Hypoglycemia Protocol Insulin Aspart 3 - 6 units 10/03/24 08:00 10/10/24 08:20 Insulin Aspart (*Bkc) 100 Units/Ml SUB-Q Not Given [facility] Protocol Insulin Aspart 1 - 3 units 10/02/24 21:00 10/09/24 21:11 Insulin Aspart (*Bkc) 100 Units/Ml SUB-Q Not Given HS [facility] Protocol Insulin Human Regular 25 units 10/03/24 13:00 10/09/24 11:59 Insulin Human Regular (*Bkc) 100 Units/Ml SUB-Q 25 units DAILY@1200 [facility] Administration Insulin Human Regular 55 units 10/05/24 08:00 10/09/24 08:21 Insulin Human Regular (*Bkc) 100 Units/Ml SUB-Q 55 units DAILY@0800 [facility] Administration Isosorbide Mononitrate 90 mg 10/03/24 09:00 10/09/24 08:12 Isosorbide Mononitrate 30 Mg Tab.Er.24h PO 90 mg DAILY [facility] Administration Ondansetron HCl 4 mg 10/02/24 16:55 10/09/24 16:05 Ondansetron Inj 4 Mg/2 Ml Vial IV PUSH 4 mg Q4H PRN Administration Nausea Ondansetron HCl 4 mg 10/02/24 17:35 Ondansetron Inj 4 Mg/2 Ml Vial IV PUSH Q6H PRN Nausea And Vomiting Ondansetron HCl 4 mg 10/06/24 14:41 Ondansetron Inj 4 Mg/2 Ml Vial IV PUSH ONCE PRN Nausea Oxycodone HCl 5 mg 10/06/24 14:41 Oxycodone Hcl (*Crx) 5 Mg Tab Ir PO ONCE PRN Pain Pantoprazole Sodium 40 mg 10/03/24 21:00 10/09/24 21:10 Pantoprazole 40 Mg Tablet PO 40 mg QHS TAMIKA Administration Polyethylene Glycol 17 gm 10/05/24 14:48 Polyethylene Glycol 3350 17 Gm Powd.Pack PO QAM PRN Constipation Propranolol HCl 80 mg 10/03/24 09:00 10/09/24 19:24 Propranolol Hcl 40 Mg Tablet PO Not Given TID TAMIKA Sertraline HCl 50 mg 10/02/24 23:10 10/09/24 08:12 Sertraline Hcl 50 Mg Tablet BY MOUTH 50 mg DAILY TAMIKA Administration Sodium Zirconium Cyclosilicate 10 gm 10/08/24 11:50 10/08/24 17:12 Sodium Zirconium Cyclosilicate 10 Gm Powd.Pack PO 10 gm BID@1000,1800 TAMIKA Administration Radiology Results: ITS Impressions Foot X-Ray 10/02/24 14:32 IMPRESSION: 1. Nondisplaced fracture of lateral aspect of head of first proximal phalanx. 2. Nondisplaced stellate fracture of tuft of first distal phalanx. 3. Mild polyarticular osteoarthritis. Renal Ultrasound 10/07/24 11:52 IMPRESSION: 1. 3.4 cm mixed solid and cystic lesion at the upper pole the right kidney with 2 cm solid nodular component which is concerning for renal cell carcinoma. Recommend urologic consultation and further evaluation with pre and postcontrast MRI or CT. 2. No hydronephrosis in either kidney. 3. Trabeculated bladder wall which can be seen with neurogenic bladder or chronic outlet obstruction such as in the setting of prostatomegaly. Chest X-Ray 10/09/24 10:38 Impression: Clear lungs. Status post CABG. Labs Labs: Laboratory Results - last 24 hr 10/09/24 10/09/24 10/09/24 11:30 16:38 19:43 WBC RBC Hgb Hct MCV MCH MCHC RDW Plt Count MPV Sodium Potassium Chloride Carbon Dioxide Anion Gap BUN Creatinine Estim Creat Clear Calc Estimated GFR Glucose POC Capillary Glucose 220 H 88 59 L* Calcium Total Bilirubin AST ALT Alkaline Phosphatase Total Protein Albumin 10/09/24 10/09/24 10/10/24 20:04 20:33 00:31 WBC RBC Hgb Hct MCV MCH MCHC RDW Plt Count MPV Sodium Potassium Chloride Carbon Dioxide Anion Gap BUN Creatinine Estim Creat Clear Calc Estimated GFR Glucose POC Capillary Glucose 78 107 H 119 H Calcium Total Bilirubin AST ALT Alkaline Phosphatase Total Protein Albumin 10/10/24 10/10/24 06:53 08:01 WBC 8.2 RBC 3.02 L Hgb 9.0 L Hct 28.6 L MCV 94.7 MCH 29.8 MCHC 31.5 L RDW 13.9 Plt Count 354 MPV 10.4 Sodium 136 L Potassium 4.5 Chloride 109 H Carbon Dioxide 15 L Anion Gap 12 BUN 81 H Creatinine 4.57 H Estim Creat Clear Calc 20 Estimated GFR 13 L Glucose 135 H POC Capillary Glucose 154 H Calcium 8.0 L Total Bilirubin 0.7 AST 49 ALT 52 H Alkaline Phosphatase 111 Total Protein 6.0 L Albumin 2.8 L Quality VTE Prophylaxis VTE prophylaxis: mechanical ordered Hospitalist MIPS Advance Care Plan I have confirmed that the patient's Advanced Care Plan is present, code status is documented, or surrogate decision maker is listed in patient medical record.: Yes Medication Reconciliation I have utilized all available resources to obtain, update and review the patients current medications (includes all prescriptions, OTC, herbals, cannabis, and nutritional supplements).: Yes
[2024-10-10] MEDS: INSULIN HUMAN REGULAR (*BKC) 100 UNITS/ML 55 UNITS SUB-Q (09:40)
[2024-10-10] MEDS: PROPRANOLOL HCL 40 MG TABLET 80 MG PO ×3 (09:41→17:22)
[2024-10-10] MEDS: AMOXICILLIN/CLAVULANATE K 500-125 MG TAB 1 TABLET PO ×2 (09:41→21:15)
[2024-10-10] MEDS: SERTRALINE HCL 50 MG TABLET BY MOUTH (09:41)
[2024-10-10] MEDS: ATORVASTATIN 40 MG TABLET 80 MG PO (09:41)
[2024-10-10] MEDS: DOCUSATE SODIUM 100 MG CAPSULE PO ×2 (09:41→17:22)
[2024-10-10] MEDS: ASPIRIN 81 MG ENTERIC TABLET PO (09:41)
[2024-10-10] MEDS: EZETIMIBE 10 MG TABLET PO (09:41)
[2024-10-10] MEDS: EMPAGLIFLOZIN 25 MG TABLET BY MOUTH (09:41)
[2024-10-10] MEDS: ISOSORBIDE MONONITRATE 30 MG TAB.ER.24H 90 MG PO (09:41)
[2024-10-10] MEDS: busPIRone HCL 10 MG TABLET PO ×2 (09:42→17:22)
[2024-10-10] MEDS: ENOXAPARIN 30 MG/0.3 ML SYRINGE SUB-Q (09:49)
[2024-10-10] MEDS: calcitrioL 0.25 MCG CAPSULE PO (09:50)
--- NOTE | 2024-10-10 10:33 | P.CONUR_ITS ---
Assessment and Plan Assessment and plan (1) Chronic kidney disease, stage 3b: Code(s): N18.32 - Chronic kidney disease, stage 3b Status: Acute (2) Acute on chronic renal failure: Code(s): N17.9 - Acute kidney failure, unspecified; N18.9 - Chronic kidney disease, unspecified Status: Acute Assessment and Plan: * Rodriguez catheter should stay until we see if it helps with improvement in renal function and until he is ambulatory * for indeterminate 3 cm right lower pole renal mass I would recommend MRI scan with without contrast when his renal function is better he is able to undergo that ( because of renal function ) then I would recommend repeat ultrasound 3- 4 months (3) Neoplasm of uncertain behavior of right kidney: Code(s): D41.01 - Neoplasm of uncertain behavior of right kidney Status: Acute Urology Consult Note HPI Date Seen: 10/10/24 Requesting Physician: Darcie Garcia APRN Primary Care Provider: Adrian Owens MD Consult Narrative Narrative: Aj Blanc is a 69 year old male previously unknown to our practice admitted with progressive deterioration renal function. Renal ultrasound around the time admission showed no particular bladder distention or hydronephrosis. He denies sense of hesitancy or incomplete bladder emptying and has no history of urinary tract infection or hematuria. Last night the nurses were unable to place a catheter, hence our consultation. At the bedside I was able to place a 16 F coude catheter without difficulty. I got return approximately 3-350 cc of clear urine. In addition to catheter placements I also noticed that his renal ultrasound demonstrated a 3 cm indeterminate partially cystic/partially solid lesion in his right kidney. Patient denies any knowledge of having appearing kidneys in the past, although his history seems somewhat unreliable. Review of Systems 2 Review of Systems: All systems reviewed & are unremarkable except as noted in HPI and below [facility] Past Medical History Medical History (Updated 10/10/24 @ 10:39 by Denzel Teresa MD) Gastro-esophageal reflux disease without esophagitis Chronic kidney disease, stage 3b Major depressive disorder, recurrent, mild Diastolic dysfunction (03/2022) Coronary artery disease with angina pectoris Essential tremor Long-term insulin use Hypertensive chronic kidney disease with stage 1 through stage 4 chronic kidney disease, or unspecified chronic kidney disease Risk for falls Pure hypercholesterolemia Essential (primary) hypertension Type 2 diabetes mellitus with hyperglycemia Surgical History Surgical History (Updated 10/06/24 @ 20:37 by Adrian Owens MD) History of amputation of right great toe (09/2024) History of amputation of left great toe (2020) Presence of aortocoronary bypass graft (10/2017) H/O foot surgery 2020, toe amputation S/P triple vessel bypass 10/2018 Family History Family History Father Family history of cataracts Mother Family history of diabetes mellitus in first degree relative Other Cancer Diabetes mellitus Heart disease Hypertension Social History Social History Smoking status: Never smoker Second hand tobacco smoke exposure: No Alcohol intake: never Alcohol use details: 1-2 per year Substance use: never Substance use type: does not use Do You Feel Safe in your Home?: Yes Lack of Transportation: No Lack of Food: Never True Current Housing: I Have Housing Concerned About Future Housing: No Difficulty Paying Gas/Electric Bills: No Difficulty Paying for Meds: No Currently Unemployed: No Education: Associate Degree Difficulty w/ Childcare or Family Care: No Living arrangements: with family Occupation/Education: retired Gender identity (if verbalized by the patient): Male Spiritual care concerns: No Agree to blood products: Yes Meds Home Medications and Allergies Home Medications ?Medication ?Instructions ?Recorded ?Confirmed ?Type aspirin 81 mg tablet 81 mg PO DAILY 03/14/21 10/02/24 History cetirizine 10 mg capsule (Zyrtec) 10 mg PO DAILY PRN allergy symptoms 03/14/21 10/02/24 History ranolazine 1,000 mg 1,000 mg PO Q12H 03/14/21 10/02/24 History tablet,extended release,12 hr fluticasone propionate 50 1 spray intranasal DAILY 10/12/22 10/02/24 History mcg/actuation nasal spray,suspension (Flonase Allergy Relief) atorvastatin 80 mg tablet 80 mg PO DAILY 3 months #90 tabs 10/16/22 10/02/24 Rx glucagon 1 mg/0.2 mL subcutaneous 1 mg (0.2 mL) subcut ONCE #0.4 mL 03/08/23 10/02/24 Rx auto-injector (Gvoke HypoPen 2-Pack) pen needle, diabetic 31 gauge x #100 ea 04/11/23 10/08/24 Rx 5/16 (BD Ultra-Fine Short Pen Needle) blood-glucose meter,continuous #1 ea 09/06/23 10/08/24 Rx (Dexcom G7 Pediatric Cns) pantoprazole 40 mg tablet,delayed 40 mg PO QHS #90 tabs 10/01/23 10/02/24 Rx release bumetanide 0.5 mg tablet 0.5 mg PO DAILY #30 tabs 12/17/23 10/02/24 Rx isosorbide mononitrate 60 mg 90 mg (1.5 x 60 mg) PO DAILY #135 01/09/24 10/02/24 Rx tablet,extended release 24 hr tabs buspirone 10 mg tablet 10 mg PO BID #180 tabs 01/28/24 10/02/24 Rx blood-glucose sensor (Dexcom G7 #9 ea 02/28/24 10/08/24 Rx Sensor device) sertraline 50 mg tablet See Rx Instructions .Route 04/03/24 10/02/24 Rx .COMPLEX #90 tabs dapagliflozin propanediol 10 mg 10 mg PO QAM 90 days #90 tabs 08/15/24 10/02/24 Rx tablet (Farxiga) propranolol 80 mg tablet 80 mg PO TID #270 tabs 08/31/24 10/02/24 Rx calcitriol 0.25 mcg capsule 0.25 mcg PO 3XW 09/08/24 10/02/24 History ezetimibe 10 mg tablet 10 mg PO DAILY 09/08/24 10/02/24 History ondansetron HCl 8 mg tablet 8 mg PO Q8H PRN nausea and 09/23/24 10/02/24 Rx vomiting #20 tabs insulin regular hum U-500 conc 500 See Rx Instructions subcut QAM 10/02/24 10/02/24 History unit/mL(3 mL) subcut pen (Humulin R U-500 (Conc) Insulin Kwikpen) semaglutide 0.25 mg or 0.5 mg (2 0.25 mg subcut WEEKLY 10/02/24 10/02/24 History mg/3 mL) subcutaneous pen injector (Ozempic) amoxicillin 500 mg-potassium 1 tablet PO Q12HR 14 days #28 tabs 10/09/24 Rx clavulanate 125 mg tablet (Augmentin) Allergies Allergy/AdvReac Type Severity Reaction Status Date / Time No Known Allergies Allergy Verified 10/03/24 14:03 Vital Signs Vital Signs - 24 hr 10/09/24 12:52 10/09/24 13:59 10/09/24 20:00 Temperature 97.3 F L 98.1 F Pulse Rate 68 70 66 Respiratory Rate 16 18 Blood Pressure 136/61 151/71 H Pulse Oximetry 99 100 Oxygen Delivery 10/09/24 21:10 10/10/24 00:30 10/10/24 04:40 Temperature 99.6 F 99.2 F Pulse Rate 74 72 Respiratory Rate 18 20 Blood Pressure 131/54 L 142/66 H Pulse Oximetry 99 99 Oxygen Delivery Room Air 10/10/24 09:41 Temperature Pulse Rate 72 Respiratory Rate Blood Pressure Pulse Oximetry Oxygen Delivery Exam 2 Const: General: no acute distress Resp: Effort & Inspection: normal respiratory effort GI: Inspection: non-distended GI Palp: No abdominal tenderness and No Guarding due to palpation present (GI) Auscultation: normal bowel sounds : Penis: Yes other (ventral urethral erosion from prior catheter) Results Labs 10/10/24 06:53 10/10/24 06:53 Labs: Short CBC 10/10/24 Range/Units 06:53 WBC 8.2 (4.5-10.0) K/mm3 Hgb 9.0 L (14.0-18.0) g/dL Hct 28.6 L (42.0-52.0) % Plt Count 354 (150-375) k/mm3 BMP 10/10/24 06:53 Sodium 136 L Potassium 4.5 Chloride 109 H Carbon Dioxide 15 L BUN 81 H Creatinine 4.57 H Glucose 135 H Calcium 8.0 L Liver Function 10/10/24 Range/Units 06:53 Total Bilirubin 0.7 (0.2-1.3) mg/dL AST 49 (17-59) U/L ALT 52 H (6-50) U/L Alkaline Phosphatase 111 (38-126) U/L Albumin 2.8 L (3.5-5.1) g/dL
--- NOTE | 2024-10-10 11:21 | PCNWS ---
Weekly nutritional screen. Patient is tolerating current Diabetic diet, low potassium diet with adequate intake at 100% of meals. No weight loss reported. No nutritional recommendations at this time.
--- NOTE | 2024-10-10 11:47 | P.PNGS_ITS ---
Progress Note: A&P Assessment and Plan (1) Diabetic foot ulcer: Code(s): E11.621 - Type 2 diabetes mellitus with foot ulcer; L97.509 - Non-pressure chronic ulcer of other part of unspecified foot with unspecified severity Status: Acute Assessment and Plan: * Continuing to heal well. Continue daily dressing changes. Follow up in office in 2 weeks for suture removal. (2) Cellulitis of great toe, right: Code(s): L03.031 - Cellulitis of right toe Status: Acute (3) Fracture of right great toe: Code(s): S92.401A - Displaced unspecified fracture of right great toe, initial encounter for closed fracture Status: Acute (4) Acute on chronic renal failure: Code(s): N17.9 - Acute kidney failure, unspecified; N18.9 - Chronic kidney disease, unspecified Status: Acute Assessment and Plan: * Creatinine still slowly rising. 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 Denies pain. No fevers. Exam Extrem: Other: Right great toe amputation site healing well. Minimal slightly bloody/cloudy drainage. No surrounding erythema. Objective Data Vital Signs Vital Signs: Vital Signs - 24 hr 10/09/24 12:52 10/09/24 13:59 10/09/24 20:00 Temperature 97.3 F L 98.1 F Pulse Rate 68 70 66 Respiratory Rate 16 18 Blood Pressure 136/61 151/71 H Pulse Oximetry 99 100 Oxygen Delivery 10/09/24 21:10 10/10/24 00:30 10/10/24 04:40 Temperature 99.6 F 99.2 F Pulse Rate 74 72 Respiratory Rate 18 20 Blood Pressure 131/54 L 142/66 H Pulse Oximetry 99 99 Oxygen Delivery Room Air 10/10/24 09:41 Temperature Pulse Rate 72 Respiratory Rate Blood Pressure Pulse Oximetry Oxygen Delivery Intake/Output Intake/Output: Intake & Output 10/07/24 10/08/24 10/09/24 10/10/24 23:59 23:59 23:59 23:59 Intake Total 4170 472 1340 1983 Output Total 450 325 125 Balance 2240 395 1215 1983 Meds/Results Medications: Active Medications Generic Name Dose Route Start Last Admin Trade Name Freq PRN Reason Stop Dose Admin Acetaminophen 650 mg 10/02/24 16:55 10/08/24 21:56 Acetaminophen 325 Mg Tablet PO 650 mg Q4H PRN Administration Mild Pain (1-3) or Fever Hydrocodone Bitart/Acetaminophen 1 tab 10/02/24 16:55 10/10/24 06:53 Hydrocodone/Acetaminophen (*Crx) 5-325 Mg Tablet PO 1 tab Q4H PRN Administration Pain Rated 4-6 Amoxicillin/Clavulanate Potassium 1 tablet 10/06/24 21:00 10/10/24 09:41 Amoxicillin/Clavulanate K 500-125 Mg Tab PO 10/20/24 21:01 1 tablet Q12HR TAMIKA Administration Aspirin 81 mg 10/03/24 09:00 10/10/24 09:41 Aspirin 81 Mg Enteric Tablet PO 81 mg QAM TAMIKA Administration Atorvastatin Calcium 80 mg 10/03/24 09:00 10/10/24 09:41 Atorvastatin 40 Mg Tablet PO 80 mg DAILY TAMIKA Administration Bumetanide 0.5 mg 10/03/24 09:00 10/08/24 08:32 Bumetanide 0.5 Mg Tablet PO 0.5 mg DAILY TAMIKA Administration Buspirone HCl 10 mg 10/03/24 09:00 10/10/24 09:42 Buspirone Hcl 10 Mg Tablet PO 10 mg BID TAMIKA Administration Calcitriol 0.25 mcg 10/03/24 09:00 10/10/24 09:50 Calcitriol 0.25 Mcg Capsule PO 0.25 mcg [id number]@0900 TAMIKA Administration Dextrose 12.5 gm 10/02/24 17:35 Dextrose 50% 25 Gm/50 Ml Syringe IV PUSH PRN PRN Hypoglycemia Protocol Docusate Sodium 100 mg 10/03/24 09:00 10/10/24 09:41 Docusate Sodium 100 Mg Capsule PO 100 mg BID TAMIKA Administration Ezetimibe 10 mg 10/03/24 09:00 10/10/24 09:41 Ezetimibe 10 Mg Tablet PO 10 mg DAILY TAMIKA Administration Empagliflozin 25 mg 10/03/24 09:00 10/10/24 09:41 Empagliflozin 25 Mg Tablet BY MOUTH 25 mg QAM TAMIKA Administration Enoxaparin Sodium 30 mg 10/09/24 09:00 10/10/24 09:49 Enoxaparin 30 Mg/0.3 Ml Syringe SUB-Q 30 mg DAILY TAMIKA Administration Glucagon 1 mg 10/02/24 17:35 Glucagon For Inj 1 Mg Vial IM PRN PRN Hypoglycemia Protocol Glucose 15 gm 10/02/24 17:35 Glucose Oral Gel 15 Gm Of Glucse In 37.5 Gm Tube PO PRN PRN Hypoglycemia Protocol Dextrose 1,000 mls @ 100 mls/hr 10/02/24 17:35 Dextrose 5% 1,000 Ml IVPB PRN PRN Hypoglycemia Protocol Insulin Aspart 3 - 6 units 10/03/24 08:00 10/10/24 08:20 Insulin Aspart (*Bkc) 100 Units/Ml SUB-Q Not Given TIDWM [facility] Protocol Insulin Aspart 1 - 3 units 10/02/24 21:00 10/09/24 21:11 Insulin Aspart (*Bkc) 100 Units/Ml SUB-Q Not Given HS [facility] Protocol Insulin Human Regular 25 units 10/03/24 13:00 10/09/24 11:59 Insulin Human Regular (*Bkc) 100 Units/Ml SUB-Q 25 units DAILY@1200 [facility] Administration Insulin Human Regular 55 units 10/05/24 08:00 10/10/24 09:40 Insulin Human Regular (*Bkc) 100 Units/Ml SUB-Q 55 units DAILY@0800 [facility] Administration Isosorbide Mononitrate 90 mg 10/03/24 09:00 10/10/24 09:41 Isosorbide Mononitrate 30 Mg Tab.Er.24h PO 90 mg DAILY TAMIKA Administration Ondansetron HCl 4 mg 10/02/24 17:35 Ondansetron Inj 4 Mg/2 Ml Vial IV PUSH Q6H PRN Nausea And Vomiting Oxycodone HCl 5 mg 10/06/24 14:41 Oxycodone Hcl (*Crx) 5 Mg Tab Ir PO ONCE PRN Pain Pantoprazole Sodium 40 mg 10/03/24 21:00 10/09/24 21:10 Pantoprazole 40 Mg Tablet PO 40 mg QHS TAMIKA Administration Polyethylene Glycol 17 gm 10/05/24 14:48 Polyethylene Glycol 3350 17 Gm Powd.Pack PO QAM PRN Constipation Propranolol HCl 80 mg 10/03/24 09:00 10/10/24 09:41 Propranolol Hcl 40 Mg Tablet PO 80 mg TID TAMIKA Administration Sertraline HCl 50 mg 10/02/24 23:10 10/10/24 09:41 Sertraline Hcl 50 Mg Tablet BY MOUTH 50 mg DAILY TAMIKA Administration Sodium Zirconium Cyclosilicate 10 gm 10/08/24 11:50 10/08/24 17:12 Sodium Zirconium Cyclosilicate 10 Gm Powd.Pack PO 10 gm BID@1000,1800 TAMIKA Administration Radiology Results: ITS Impressions Foot X-Ray 10/02/24 14:32 IMPRESSION: 1. Nondisplaced fracture of lateral aspect of head of first proximal phalanx. 2. Nondisplaced stellate fracture of tuft of first distal phalanx. 3. Mild polyarticular osteoarthritis. Renal Ultrasound 10/07/24 11:52 IMPRESSION: 1. 3.4 cm mixed solid and cystic lesion at the upper pole the right kidney with 2 cm solid nodular component which is concerning for renal cell carcinoma. Recommend urologic consultation and further evaluation with pre and postcontrast MRI or CT. 2. No hydronephrosis in either kidney. 3. Trabeculated bladder wall which can be seen with neurogenic bladder or chronic outlet obstruction such as in the setting of prostatomegaly. Chest X-Ray 10/09/24 10:38 Impression: Clear lungs. Status post CABG. Labs Labs: Laboratory Results - last 24 hr 10/09/24 10/09/24 10/09/24 16:38 19:43 20:04 WBC RBC Hgb Hct MCV MCH MCHC RDW Plt Count MPV Sodium Potassium Chloride Carbon Dioxide Anion Gap BUN Creatinine Estim Creat Clear Calc Estimated GFR Glucose POC Capillary Glucose 88 59 L* 78 Calcium Total Bilirubin AST ALT Alkaline Phosphatase Total Protein Albumin 10/09/24 10/10/24 10/10/24 20:33 00:31 06:53 WBC 8.2 RBC 3.02 L Hgb 9.0 L Hct 28.6 L MCV 94.7 MCH 29.8 MCHC 31.5 L RDW 13.9 Plt Count 354 MPV 10.4 Sodium 136 L Potassium 4.5 Chloride 109 H Carbon Dioxide 15 L Anion Gap 12 BUN 81 H Creatinine 4.57 H Estim Creat Clear Calc 20 Estimated GFR 13 L Glucose 135 H POC Capillary Glucose 107 H 119 H Calcium 8.0 L Total Bilirubin 0.7 AST 49 ALT 52 H Alkaline Phosphatase 111 Total Protein 6.0 L Albumin 2.8 L 10/10/24 08:01 WBC RBC Hgb Hct MCV MCH MCHC RDW Plt Count MPV Sodium Potassium Chloride Carbon Dioxide Anion Gap BUN Creatinine Estim Creat Clear Calc Estimated GFR Glucose POC Capillary Glucose 154 H Calcium Total Bilirubin AST ALT Alkaline Phosphatase Total Protein Albumin
[2024-10-10 12:13] LABS: Glucose Point of Care 178 mg/dl (65-105)
[2024-10-10] MEDS: INSULIN HUMAN REGULAR (*BKC) 100 UNITS/ML 25 UNITS SUB-Q (12:31)
--- NOTE | 2024-10-10 13:19 | P.PNNP_ITS ---
Progress Note: A&P Assessment and Plan (1) JUAN CARLOS (acute kidney injury): Code(s): N17.9 - Acute kidney failure, unspecified Status: Acute Assessment and Plan: * as noted on admission - creatinine of 3.32mg/dl * came down to 2.9mg/dl transiently * presumed etiology likely secondary to acute infection - right great toe diabetic foot ulcer + cellulitis * however, cannot discount an element of CKD progression * evaluation to date noted: * renal u/s without hydro but concerning for renal mass * urine electrolytes pre-renal * urine eosinophils noted * UA (from 10/07) suggestive of infection -- culture Annie (but low CFU) * proteinuria noted * CPK normal * holding diuretic therapy for now * s/p trial of IVFs with no real improvement * worsening acidosis noted... * follow repeat labs and UOP (2) Chronic kidney disease, stage IV (severe): Code(s): N18.4 - Chronic kidney disease, stage 4 (severe) Status: Chronic Assessment and Plan: * baseline creatinine has been running 2.3 - 2.7mg/dl in the last few years * however, last creatinine up to 2.86mg/dl in July 2024 * due to diabetes, hypertension, vascular disease, (CAD + CHF + hyperlipidemia + PVD), and age * follows with Dr. Caprice Gusman for managment of his chronic kidney disease (3) Diabetic foot ulcer: Code(s): E11.621 - Type 2 diabetes mellitus with foot ulcer; L97.509 - Non-pressure chronic ulcer of other part of unspecified foot with unspecified severity Status: Acute Assessment and Plan: * as noted on admission * poor wound healing noted since injury * X-ray with right great toe fracture * complicated by cellulitis of right great toe * s/p right great toe amputation by Surgery (on 10/06) * culture data noted * blood cultures negative * would culture with Staph aureus * on antibiotics * local wound care (4) Diastolic dysfunction: Onset Date: 03/2022 Code(s): I51.89 - Other ill-defined heart diseases Status: Chronic Assessment and Plan: * appears compensated at this time * home diuretic therapy on hold due to #1 * follow volume/respiratory status (5) Anemia: Code(s): D64.9 - Anemia, unspecified Status: Chronic Assessment and Plan: * presumably related to CKD from some contributions from JUAN CARLOS, acute infection, and recent operative procedure * follow trend of H/H * no need for TAMIKO at this time (6) Urinary tract infection: Code(s): N39.0 - Urinary tract infection, site not specified Status: Acute Assessment and Plan: * recent UA (10/07) suggestive * urine culture with low CFU Annie (7) Hypertension: Code(s): I10 - Essential (primary) hypertension Status: Chronic Assessment and Plan: * reasonable control at this time * follow trend of hemodynamics (8) Type 2 diabetes mellitus with diabetic polyneuropathy: Code(s): E11.42 - Type 2 diabetes mellitus with diabetic polyneuropathy Status: Acute Assessment and Plan: * follow accu-checks * brittle control noted - last HgbA1c noted * glycemic control per hospitalist Will continue to follow. L Subjective Date/time seen: 10/10/24 13:19 Interval history: Follow-up for acute kidney injury/acute renal failure on chronic kidney disease. States he feels a little better today in comparison to yesterday when I saw him; still reports reasonable urine output in spite of the fact his renal function/creatinine continues to worsen; no other acute complaints voiced currently; remains hemodynamically stable with stable volume status despite holding diuretic therapy. Exam 2 Narrative: General: elderly WD/WN male in NAD Heart: normal S1 and S2; no rub Lungs: clear to auscultation Abdomen: soft, nontender, nondistended, positive bowel sounds Extremities: no cyanosis or clubbing; trace edema Skin: dressings over right foot Objective Data Vital Signs Vital Signs: Vital Signs Temp Pulse Resp BP Pulse Ox O2 Del Method 10/10/24 12:29 70 10/10/24 11:59 98.4 F 70 18 124/63 99 10/10/24 09:41 72 10/10/24 07:45 Room Air 10/10/24 04:40 99.2 F 72 20 142/66 H 99 10/10/24 00:30 99.6 F 74 18 131/54 L 99 10/09/24 21:10 Room Air 10/09/24 20:00 98.1 F 66 18 151/71 H 100 Intake/Output Intake/Output: Intake & Output 10/07/24 10/08/24 10/09/24 10/10/24 23:59 23:59 23:59 23:59 Intake Total 5160 808 1340 1983 Output Total 450 325 125 Balance 2240 395 1215 1983 Meds/Results Medications: Active Medications Generic Name Dose Route Start Last Admin Trade Name Freq PRN Reason Stop Dose Admin Acetaminophen 650 mg 10/02/24 16:55 10/08/24 21:56 Acetaminophen 325 Mg Tablet PO 650 mg Q4H PRN Administration Mild Pain (1-3) or Fever Hydrocodone Bitart/Acetaminophen 1 tab 10/02/24 16:55 10/10/24 06:53 Hydrocodone/Acetaminophen (*Crx) 5-325 Mg Tablet PO 1 tab Q4H PRN Administration Pain Rated 4-6 Amoxicillin/Clavulanate Potassium 1 tablet 10/06/24 21:00 10/10/24 09:41 Amoxicillin/Clavulanate K 500-125 Mg Tab PO 10/20/24 21:01 1 tablet Q12HR TAMIKA Administration Aspirin 81 mg 10/03/24 09:00 10/10/24 09:41 Aspirin 81 Mg Enteric Tablet PO 81 mg QAM TAMIKA Administration Atorvastatin Calcium 80 mg 10/03/24 09:00 10/10/24 09:41 Atorvastatin 40 Mg Tablet PO 80 mg DAILY TAMIKA Administration Bumetanide 0.5 mg 10/03/24 09:00 10/08/24 08:32 Bumetanide 0.5 Mg Tablet PO 0.5 mg DAILY TAMIKA Administration Buspirone HCl 10 mg 10/03/24 09:00 10/10/24 09:42 Buspirone Hcl 10 Mg Tablet PO 10 mg BID TAMIKA Administration Calcitriol 0.25 mcg 10/03/24 09:00 10/10/24 09:50 Calcitriol 0.25 Mcg Capsule PO 0.25 mcg MoWeFr@0900 TAMIKA Administration Dextrose 12.5 gm 10/02/24 17:35 Dextrose 50% 25 Gm/50 Ml Syringe IV PUSH PRN PRN Hypoglycemia Protocol Docusate Sodium 100 mg 10/03/24 09:00 10/10/24 09:41 Docusate Sodium 100 Mg Capsule PO 100 mg BID TAMIKA Administration Ezetimibe 10 mg 10/03/24 09:00 10/10/24 09:41 Ezetimibe 10 Mg Tablet PO 10 mg DAILY TAMIKA Administration Empagliflozin 25 mg 10/03/24 09:00 10/10/24 09:41 Empagliflozin 25 Mg Tablet BY MOUTH 25 mg QAM TAMIKA Administration Enoxaparin Sodium 30 mg 10/09/24 09:00 10/10/24 09:49 Enoxaparin 30 Mg/0.3 Ml Syringe SUB-Q 30 mg DAILY TAMIKA Administration Glucagon 1 mg 10/02/24 17:35 Glucagon For Inj 1 Mg Vial IM PRN PRN Hypoglycemia Protocol Glucose 15 gm 10/02/24 17:35 Glucose Oral Gel 15 Gm Of Glucse In 37.5 Gm Tube PO PRN PRN Hypoglycemia Protocol Dextrose 1,000 mls @ 100 mls/hr 10/02/24 17:35 Dextrose 5% 1,000 Ml IVPB PRN PRN Hypoglycemia Protocol Insulin Aspart 3 - 6 units 10/03/24 08:00 10/10/24 12:26 Insulin Aspart (*Bkc) 100 Units/Ml SUB-Q Not Given TIDWM REPLACED [facility] Protocol Insulin Aspart 1 - 3 units 10/02/24 21:00 10/09/24 21:11 Insulin Aspart (*Bkc) 100 Units/Ml SUB-Q Not Given HS REPLACED BY [facility] Protocol Insulin Human Regular 25 units 10/03/24 13:00 10/10/24 12:31 Insulin Human Regular (*Bkc) 100 Units/Ml SUB-Q 25 units DAILY@1200 REPLACED BY [facility] Administration Insulin Human Regular 55 units 10/05/24 08:00 10/10/24 09:40 Insulin Human Regular (*Bkc) 100 Units/Ml SUB-Q 55 units DAILY@0800 REPLACED BY [facility] Administration Isosorbide Mononitrate 90 mg 10/03/24 09:00 10/10/24 09:41 Isosorbide Mononitrate 30 Mg Tab.Er.24h PO 90 mg DAILY TAMIKA Administration Ondansetron HCl 4 mg 10/02/24 17:35 Ondansetron Inj 4 Mg/2 Ml Vial IV PUSH Q6H PRN Nausea And Vomiting Oxycodone HCl 5 mg 10/06/24 14:41 Oxycodone Hcl (*Crx) 5 Mg Tab Ir PO ONCE PRN Pain Pantoprazole Sodium 40 mg 10/03/24 21:00 10/09/24 21:10 Pantoprazole 40 Mg Tablet PO 40 mg QHS TAMIKA Administration Polyethylene Glycol 17 gm 10/05/24 14:48 Polyethylene Glycol 3350 17 Gm Powd.Pack PO QAM PRN Constipation Propranolol HCl 80 mg 10/03/24 09:00 10/10/24 12:29 Propranolol Hcl 40 Mg Tablet PO 80 mg TID TAMIKA Administration Sertraline HCl 50 mg 10/02/24 23:10 10/10/24 09:41 Sertraline Hcl 50 Mg Tablet BY MOUTH 50 mg DAILY TAMIKA Administration Sodium Zirconium Cyclosilicate 10 gm 10/08/24 11:50 10/08/24 17:12 Sodium Zirconium Cyclosilicate 10 Gm Powd.Pack PO 10 gm BID@1000,1800 TAMIKA Administration Radiology Results: ITS Impressions Foot X-Ray 10/02/24 14:32 IMPRESSION: 1. Nondisplaced fracture of lateral aspect of head of first proximal phalanx. 2. Nondisplaced stellate fracture of tuft of first distal phalanx. 3. Mild polyarticular osteoarthritis. Renal Ultrasound 10/07/24 11:52 IMPRESSION: 1. 3.4 cm mixed solid and cystic lesion at the upper pole the right kidney with 2 cm solid nodular component which is concerning for renal cell carcinoma. Recommend urologic consultation and further evaluation with pre and postcontrast MRI or CT. 2. No hydronephrosis in either kidney. 3. Trabeculated bladder wall which can be seen with neurogenic bladder or chronic outlet obstruction such as in the setting of prostatomegaly. Chest X-Ray 10/09/24 10:38 Impression: Clear lungs. Status post CABG. Labs Labs: Laboratory Tests 10/10/24 06:53 10/10/24 06:53 Calcium 8.0 L Total Bilirubin 0.7 AST 49 ALT 52 H Alkaline Phosphatase 111 Total Protein 6.0 L Albumin 2.8 L
[2024-10-10 16:30] LABS: Glucose Point of Care 174 mg/dl (65-105)
[2024-10-10] MEDS: ACETAMINOPHEN 325 MG TABLET 650 MG PO (21:14)
[2024-10-10] MEDS: PANTOPRAZOLE 40 MG TABLET PO (21:15)
[2024-10-10 21:38] LABS: Glucose Point of Care 120 mg/dl (65-105)
[2024-10-11] VITALS (9 sets, daily range): BP systolic 126–137; BP diastolic 54–78; PULSE 61–69; RESP 18; TEMP 36.6–37.2; O2SAT 98–100
[2024-10-11] MEDS: HYDROcodone/acetaminophen (*CRX) 5-325 MG TABLET 1 TAB PO (00:45)
[2024-10-11 07:21] LABS: Hematocrit 30.3 % (42.0-52.0); Hemoglobin 9.5 g/dL (14.0-18.0); Mean Corpuscular HGB Conc 31.4 g/dl (32-36); Mean Corpuscular Hemoglobin 30.1 pg (26-34); Mean Corpuscular Volume 95.9 fl (80-100); Mean Platelet Volume 9.8 fl (7.4-10.4); Platelet Count Result 316 k/mm3 (150-375); Red Blood Count 3.16 M/mm3 (4.6-6.20); Red Cell Distribution Width 14.1 % (11.5-14.5); White Blood Count 8.1 K/mm3 (4.5-10.0)
[2024-10-11 07:42] LABS: Alanine Aminotransferase 65 U/L (6-50); Albumin Level 2.6 g/dL (3.5-5.1); Alkaline Phosphatase 169 U/L (38-126); Anion Gap 12 mmol/L (4-12); Aspartate Amino Transferase 74 U/L (17-59); Bilirubin,Total 0.6 mg/dL (0.2-1.3); Blood Urea Nitrogen 84 mg/dL (9-20); Calcium 7.6 mg/dL (8.4-10.2); Carbon Dioxide 15 mmol/L (22-30); Chloride 107 mmol/L (98-107); Estimated CRCL calculation 18 ml/min; Estimated Glomerular Filt Rate 11; Glucose 114 mg/dL (65-110); Potassium 5.1 mmol/L (3.4-5.0); Sodium 134 mmol/L (137-145)
--- NOTE | 2024-10-11 07:43 | PM.IMPN ---
Progress Note: A&P Assessment and Plan (1) Diabetic foot ulcer: Code(s): E11.621 - Type 2 diabetes mellitus with foot ulcer; L97.509 - Non-pressure chronic ulcer of other part of unspecified foot with unspecified severity Status: Acute Assessment and Plan: patient reports injury to right great toe with worsening symptoms patient has severe diabetes and CAD with poor wound healing initial x-ray did show right great toe was also fractured CRP elevate no WBC Surgery consulted if debridement or amputation needed blood cultures no growth today wound culture ordered NPO in case of possible procedure IV cefepime, vancomycin and Flagyl Will need close glucose control for any type of wound healing patient is a severely uncontrolled diabetic on high-dose insulin 10/04: Day 1 post-op Blood cultures NGTD inoperative wound culture pending continue with current ABX therapy will de-escalate with Culture and sensitivity Plan is surgery 10/06 for amputation due to exposed fractured toe 10/05: Postop day 2 normal wbc no fever blood cultures NGTD wound culture still pending surgery tomorrow hold morning Lovenox 10/06 10/06: Amputation 10/06 Aerobic culture grew Staphylococcus aureus De-escalated ABX to doxycycline Augmentin times 14 days. 10/07: Post-op day 2 Minimal pain ABX de-escalated based on sensitivities MSSA 10/08 post op day 3 no specific complaints awaiting PT evaluation to return home with HH is what pt wants 10/09 - will continue current Augmentin and wound treatment plan 10/10 - will continue current plan of treatment (2) Fracture of right great toe: Code(s): S92.401A - Displaced unspecified fracture of right great toe, initial encounter for closed fracture Status: Acute Assessment and Plan: Nondisplaced fracture of lateral aspect of head of first proximal phalanx. Nondisplaced stellate fracture of tuft of first distal phalanx. Orthopedics consulted Pain management elevate at rest Great toe was Amputated - wound management doing well. (3) Chronic kidney disease, stage 3b: Code(s): N18.32 - Chronic kidney disease, stage 3b Status: Acute Assessment and Plan: Acute on chronic renal failure Baseline around mid 2.5 CR 3.32 POA Currently on vancomycin pharmacy to dose will need to deescalate cultures Avoid nephrotoxic drugs. Monitor antihypertensive drug therapy. Avoid NSAIDs. Routine CMP monitoring GFR. Monitor electrolytes especially potassium. Antibiotic doses depending on creatinine clearance. Pharmacy does medications. 10/07: Cr continues to trend up 3.37 today de-escalated ABX therapy and had IV fluids with no improvement Nephrology consulted for further evaluation or recommendation baseline mid 2's Renal US pending 10/08 creat is 4 nephrology rounding see recommendations 10/09 - creat - 4.30, BUN 84, GFR 14. Nephrology aware and monitoring. --> will give 1 liter of IV fluids today 10/10 - creat - 4.57, BUN 81, GFR 13, Nephrology aware and monitoring --> Nephrology to follow. Stopped Bumex prior, worsening Renal function. creat - 5.11, BUN 84, GFR 11, K- 5.1 - Nephrology following as well. (4) Type 2 diabetes mellitus with diabetic polyneuropathy: Code(s): E11.42 - Type 2 diabetes mellitus with diabetic polyneuropathy Status: Acute Assessment and Plan: Diabetic diet Holding semaglutide Hemoglobin A1c pending Accuchecks ACHS SSI moderate dosing added Patient is hard to control diabetic on several diabetic medication, and high-dose insulin started conversion to U 100 while hospitalized and adjust as need currently 65u/25u/10u Continue Jardiance and Zetia (5) Diastolic dysfunction: Onset Date: 03/2022 Code(s): I51.89 - Other ill-defined heart diseases Status: Chronic Assessment and Plan: patient does not appear to be in exacerbation stopped Bumex (6) Presence of aortocoronary bypass graft: Onset Date: 10/2017 Code(s): Z95.1 - Presence of aortocoronary bypass graft Status: Acute Assessment and Plan: Continue Inderal, aspirin, Lipitor, an imdur, Atorvastatin Plan Time Spent With Patient Time with patient: Greater than 35 minutes (45 minutes) Subjective Date/time seen: 10/11/24 07:43 Interval history: Patient reports today he has no pain in foot or toe area at all. Dressing change completed. Renal function/creatinine a bit worse by AM labs, BUN 84, creat 5.11, GFR 11, associated with mild hyperkalemia 5.1 as well however, still making urine per patient report, did urinate this am. denies any distress. Review of Systems Review of Systems: All systems reviewed & are unremarkable except as noted in HPI and below Exam Const: General: cooperative, comfortable, alert and awake Orientation/consciousness: oriented to person, oriented to place and oriented to time HENMT: Head: normal to inspection, No palpable skull fracture present and normocephalic Eyes: General: appearance normal, both eyes and all related structures Neck: Neck: normal visual inspection, full ROM and no lymphadenopathy Chest: Chest palpation & inspection: normal inspection of the chest Resp: Effort & Inspection: normal respiratory effort and able to speak in complete sentences Auscultation: clear to auscultation bilaterally Cardio: Jugular venous distension: no JVD Palpation: normal PMI Rate: regular rate Rhythm: regular rhythm Heart sounds: S1 normal heart sound present and S2 normal heart sound present GI: Inspection: normal to inspection Auscultation: normal bowel sounds Skin: General skin exam: normal color, no rashes or lesions noted and wounds noted Wounds: wounds noted right foot drainage and other (dressing dry with slight bloody drainage noted. ) Neuro: General: oriented to person, oriented to place, oriented to time, tone normal and moves all extremities Extrem: General: full ROM Right lower extremity: foot (drsg dry and intact today. ) Psych: Appearance: grossly normal Mental Status: mental status grossly normal Speech and movement: Normal speech and movement present Objective Data Vital Signs Vital Signs: Vital Signs - 24 hr 10/10/24 07:45 10/10/24 09:41 10/10/24 11:59 Temperature 98.4 F Pulse Rate 72 70 Respiratory Rate 18 Blood Pressure 124/63 Pulse Oximetry 99 Oxygen Delivery Room Air 10/10/24 12:29 10/10/24 16:00 10/10/24 17:22 Temperature 99.3 F Pulse Rate 70 73 75 Respiratory Rate 20 Blood Pressure 125/58 L Pulse Oximetry 97 Oxygen Delivery 10/10/24 19:45 10/10/24 20:40 10/10/24 21:14 Temperature 100.8 F H 99.7 F H 99.7 F H Pulse Rate 71 Respiratory Rate 18 Blood Pressure 107/75 Pulse Oximetry 96 Oxygen Delivery 10/10/24 21:15 10/10/24 22:14 10/10/24 22:40 Temperature 99.4 F 99.4 F Pulse Rate Respiratory Rate Blood Pressure Pulse Oximetry Oxygen Delivery Room Air 10/10/24 23:45 10/11/24 04:35 Temperature 98.4 F 97.8 F Pulse Rate 65 69 Respiratory Rate 20 18 Blood Pressure 126/64 131/78 Pulse Oximetry 98 99 Oxygen Delivery Intake/Output Intake/Output: Intake & Output 10/08/24 10/09/24 10/10/24 10/11/24 23:59 23:59 23:59 23:59 Intake Total 720 1340 3464 650 Output Total 325 125 400 525 Balance 395 1215 3064 125 Meds/Results Medications: Active Medications Generic Name Dose Route Start Last Admin Trade Name Freq PRN Reason Stop Dose Admin Acetaminophen 650 mg 10/02/24 16:55 10/10/24 21:14 Acetaminophen 325 Mg Tablet PO 650 mg Q4H PRN Administration Mild Pain (1-3) or Fever Hydrocodone Bitart/Acetaminophen 1 tab 10/02/24 16:55 10/11/24 00:45 Hydrocodone/Acetaminophen (*Crx) 5-325 Mg Tablet PO 1 tab Q4H PRN Administration Pain Rated 4-6 Amoxicillin/Clavulanate Potassium 1 tablet 10/06/24 21:00 10/10/24 21:15 Amoxicillin/Clavulanate K 500-125 Mg Tab PO 10/20/24 21:01 1 tablet Q12HR TAMIKA Administration Aspirin 81 mg 10/03/24 09:00 10/10/24 09:41 Aspirin 81 Mg Enteric Tablet PO 81 mg QAM [facility]IKA Administration Atorvastatin Calcium 80 mg 10/03/24 09:00 10/10/24 09:41 Atorvastatin 40 Mg Tablet PO 80 mg DAILY [facility] Administration Bumetanide 0.5 mg 10/03/24 09:00 10/08/24 08:32 Bumetanide 0.5 Mg Tablet PO 0.5 mg DAILY [facility]A Administration Buspirone HCl 10 mg 10/03/24 09:00 10/10/24 17:22 Buspirone Hcl 10 Mg Tablet PO 10 mg BID [facility]A Administration Calcitriol 0.25 mcg 10/03/24 09:00 10/10/24 09:50 Calcitriol 0.25 Mcg Capsule PO 0.25 mcg [id number]@0900 [facility] Administration Dextrose 12.5 gm 10/02/24 17:35 Dextrose 50% 25 Gm/50 Ml Syringe IV PUSH PRN PRN Hypoglycemia Protocol Docusate Sodium 100 mg 10/03/24 09:00 10/10/24 17:22 Docusate Sodium 100 Mg Capsule PO 100 mg BID [facility] Administration Ezetimibe 10 mg 10/03/24 09:00 10/10/24 09:41 Ezetimibe 10 Mg Tablet PO 10 mg DAILY [facility] Administration Empagliflozin 25 mg 10/03/24 09:00 10/10/24 09:41 Empagliflozin 25 Mg Tablet BY MOUTH 25 mg QAM [facility] Administration Enoxaparin Sodium 30 mg 10/09/24 09:00 10/10/24 09:49 Enoxaparin 30 Mg/0.3 Ml Syringe SUB-Q 30 mg DAILY [facility] Administration Glucagon 1 mg 10/02/24 17:35 Glucagon For Inj 1 Mg Vial IM PRN PRN Hypoglycemia Protocol Glucose 15 gm 10/02/24 17:35 Glucose Oral Gel 15 Gm Of Glucse In 37.5 Gm Tube PO PRN PRN Hypoglycemia Protocol Dextrose 1,000 mls @ 100 mls/hr 10/02/24 17:35 Dextrose 5% 1,000 Ml IVPB PRN PRN Hypoglycemia Protocol Insulin Aspart 3 - 6 units 10/03/24 08:00 10/10/24 16:46 Insulin Aspart (*Bkc) 100 Units/Ml SUB-Q Not Given TIDWM [facility] Protocol Insulin Aspart 1 - 3 units 10/02/24 21:00 10/10/24 21:15 Insulin Aspart (*Bkc) 100 Units/Ml SUB-Q Not Given HS [facility] Protocol Insulin Human Regular 25 units 10/03/24 13:00 10/10/24 12:31 Insulin Human Regular (*Bkc) 100 Units/Ml SUB-Q 25 units DAILY@1200 [facility] Administration Insulin Human Regular 55 units 10/05/24 08:00 10/10/24 09:40 Insulin Human Regular (*Bkc) 100 Units/Ml SUB-Q 55 units DAILY@0800 [facility] Administration Isosorbide Mononitrate 90 mg 10/03/24 09:00 10/10/24 09:41 Isosorbide Mononitrate 30 Mg Tab.Er.24h PO 90 mg DAILY [facility] Administration Ondansetron HCl 4 mg 10/02/24 17:35 Ondansetron Inj 4 Mg/2 Ml Vial IV PUSH Q6H PRN Nausea And Vomiting Oxycodone HCl 5 mg 10/06/24 14:41 Oxycodone Hcl (*Crx) 5 Mg Tab Ir PO ONCE PRN Pain Pantoprazole Sodium 40 mg 10/03/24 21:00 10/10/24 21:15 Pantoprazole 40 Mg Tablet PO 40 mg QHS [facility] Administration Polyethylene Glycol 17 gm 10/05/24 14:48 Polyethylene Glycol 3350 17 Gm Powd.Pack PO QAM PRN Constipation Propranolol HCl 80 mg 10/03/24 09:00 10/10/24 17:22 Propranolol Hcl 40 Mg Tablet PO 80 mg TID [facility] Administration Sertraline HCl 50 mg 10/02/24 23:10 10/10/24 09:41 Sertraline Hcl 50 Mg Tablet BY MOUTH 50 mg DAILY [facility] Administration Sodium Zirconium Cyclosilicate 10 gm 10/08/24 11:50 10/08/24 17:12 Sodium Zirconium Cyclosilicate 10 Gm Powd.Pack PO 10 gm BID@1000,1800 [facility] Administration Radiology Results: ITS Impressions Foot X-Ray 10/02/24 14:32 IMPRESSION: 1. Nondisplaced fracture of lateral aspect of head of first proximal phalanx. 2. Nondisplaced stellate fracture of tuft of first distal phalanx. 3. Mild polyarticular osteoarthritis. Renal Ultrasound 10/07/24 11:52 IMPRESSION: 1. 3.4 cm mixed solid and cystic lesion at the upper pole the right kidney with 2 cm solid nodular component which is concerning for renal cell carcinoma. Recommend urologic consultation and further evaluation with pre and postcontrast MRI or CT. 2. No hydronephrosis in either kidney. 3. Trabeculated bladder wall which can be seen with neurogenic bladder or chronic outlet obstruction such as in the setting of prostatomegaly. Chest X-Ray 10/09/24 10:38 Impression: Clear lungs. Status post CABG. Labs Labs: Laboratory Results - last 24 hr 10/10/24 10/10/24 10/10/24 08:01 11:20 16:25 WBC RBC Hgb Hct MCV MCH MCHC RDW Plt Count MPV Sodium Potassium Chloride Carbon Dioxide Anion Gap BUN Creatinine Estim Creat Clear Calc Estimated GFR Glucose POC Capillary Glucose 154 H 178 H 174 H Calcium Total Bilirubin AST ALT Alkaline Phosphatase Total Protein Albumin 10/10/24 10/11/24 19:47 07:06 WBC 8.1 RBC 3.16 L Hgb 9.5 L Hct 30.3 L MCV 95.9 MCH 30.1 MCHC 31.4 L RDW 14.1 Plt Count 316 MPV 9.8 Sodium 134 L Potassium 5.1 H Chloride 107 Carbon Dioxide 15 L Anion Gap 12 BUN 84 H Creatinine 5.11 H Estim Creat Clear Calc 18 Estimated GFR 11 L Glucose 114 H POC Capillary Glucose 120 H Calcium 7.6 L Total Bilirubin 0.6 AST 74 H ALT 65 H Alkaline Phosphatase 169 H Total Protein 6.0 L Albumin 2.6 L
[2024-10-11 08:23] LABS: Glucose Point of Care 117 mg/dl (65-105)
[2024-10-11] MEDS: EZETIMIBE 10 MG TABLET PO (09:57)
[2024-10-11] MEDS: ISOSORBIDE MONONITRATE 30 MG TAB.ER.24H 90 MG PO (09:58)
[2024-10-11] MEDS: DOCUSATE SODIUM 100 MG CAPSULE PO ×2 (09:59→17:32)
[2024-10-11] MEDS: SERTRALINE HCL 50 MG TABLET BY MOUTH (09:59)
[2024-10-11] MEDS: busPIRone HCL 10 MG TABLET PO ×2 (09:59→17:32)
[2024-10-11] MEDS: ATORVASTATIN 40 MG TABLET 80 MG PO (09:59)
[2024-10-11] MEDS: EMPAGLIFLOZIN 25 MG TABLET BY MOUTH (09:59)
[2024-10-11] MEDS: AMOXICILLIN/CLAVULANATE K 500-125 MG TAB 1 TABLET PO ×2 (09:59→20:46)
[2024-10-11] MEDS: ASPIRIN 81 MG ENTERIC TABLET PO (10:00)
[2024-10-11] MEDS: ENOXAPARIN 30 MG/0.3 ML SYRINGE SUB-Q (10:00)
[2024-10-11] MEDS: PROPRANOLOL HCL 40 MG TABLET 80 MG PO ×3 (10:00→17:31)
[2024-10-11 12:19] LABS: Glucose Point of Care 186 mg/dl (65-105)
[2024-10-11] MEDS: INSULIN HUMAN REGULAR (*BKC) 100 UNITS/ML 25 UNITS SUB-Q (12:28)
--- NOTE | 2024-10-11 13:16 | P.PNNP_ITS ---
Progress Note: A&P Assessment and Plan (1) JUAN CARLOS (acute kidney injury): Code(s): N17.9 - Acute kidney failure, unspecified Status: Acute Assessment and Plan: * as noted on admission - creatinine of 3.32mg/dl * came down to 2.9mg/dl transiently * presumed etiology likely secondary to acute infection - right great toe diabetic foot ulcer + cellulitis * however, cannot discount an element of CKD progression * evaluation to date noted: * renal u/s without hydro but concerning for renal mass * urine electrolytes pre-renal * urine eosinophils noted * UA (from 10/07) suggestive of infection -- culture Annie (but low CFU) * proteinuria noted * CPK normal * holding diuretic therapy for now * s/p trial of IVFs with no real improvement * worsening acidosis noted...start sodium bicarbonate * follow repeat labs and UOP (2) Chronic kidney disease, stage IV (severe): Code(s): N18.4 - Chronic kidney disease, stage 4 (severe) Status: Chronic Assessment and Plan: * baseline creatinine has been running 2.3 - 2.7mg/dl in the last few years * however, last creatinine up to 2.86mg/dl in July 2024 * due to diabetes, hypertension, vascular disease, (CAD + CHF + hyperlipidemia + PVD), and age * follows with Dr. Caprice Gusman for managment of his chronic kidney disease (3) Diabetic foot ulcer: Code(s): E11.621 - Type 2 diabetes mellitus with foot ulcer; L97.509 - Non-pressure chronic ulcer of other part of unspecified foot with unspecified severity Status: Acute Assessment and Plan: * as noted on admission * poor wound healing noted since injury * X-ray with right great toe fracture * complicated by cellulitis of right great toe * s/p right great toe amputation by Surgery (on 10/06) * culture data noted * blood cultures negative * would culture with Staph aureus * on antibiotics * local wound care (4) Diastolic dysfunction: Onset Date: 03/2022 Code(s): I51.89 - Other ill-defined heart diseases Status: Chronic Assessment and Plan: * appears compensated at this time * home diuretic therapy on hold due to #1 * follow volume/respiratory status (5) Anemia: Code(s): D64.9 - Anemia, unspecified Status: Chronic Assessment and Plan: * presumably related to CKD from some contributions from JUAN CARLOS, acute infection, and recent operative procedure * follow trend of H/H * no need for TAMIKO at this time (6) Urinary tract infection: Code(s): N39.0 - Urinary tract infection, site not specified Status: Acute Assessment and Plan: * recent UA (10/07) suggestive * urine culture with low CFU Annie (7) Hypertension: Code(s): I10 - Essential (primary) hypertension Status: Chronic Assessment and Plan: * reasonable control at this time * follow trend of hemodynamics (8) Type 2 diabetes mellitus with diabetic polyneuropathy: Code(s): E11.42 - Type 2 diabetes mellitus with diabetic polyneuropathy Status: Acute Assessment and Plan: * follow accu-checks * brittle control noted - last HgbA1c noted * glycemic control per hospitalist Will continue to follow. L Subjective Date/time seen: 10/11/24 13:16 Interval history: Follow-up for acute kidney injury/acute renal failure on chronic kidney disease. No apparent distress noted at the time of my visit; no acute issues/events overnight or earlier this morning; renal function/creatinine continues to worsen but making urine; no complaints of pain voiced; appetite fluctuating but still able to eat and drink okay. Exam 2 Narrative: General: elderly WD/WN male in NAD Heart: normal S1 and S2; no rub Lungs: clear to auscultation Abdomen: soft, nontender, nondistended, positive bowel sounds Extremities: no cyanosis or clubbing; trace edema Skin: dressings over right foot noted Objective Data Vital Signs Vital Signs: Vital Signs Temp Pulse Resp BP Pulse Ox O2 Del Method 10/11/24 12:30 66 10/11/24 10:34 98.0 F 63 18 126/54 L 99 10/11/24 10:00 64 10/11/24 08:00 66 18 99 Room Air 10/11/24 04:35 97.8 F 69 18 131/78 99 10/10/24 23:45 98.4 F 65 20 126/64 98 10/10/24 22:40 99.4 F 10/10/24 22:14 99.4 F 10/10/24 21:15 Room Air 10/10/24 21:14 99.7 F H 10/10/24 20:40 99.7 F H 10/10/24 19:45 100.8 F H 71 18 107/75 96 Intake/Output Intake/Output: Intake & Output 10/08/24 10/09/24 10/10/24 10/11/24 23:59 23:59 23:59 23:59 Intake Total 720 1340 3464 1610 Output Total 325 125 400 525 Balance 395 1215 3064 1085 Meds/Results Medications: Active Medications Generic Name Dose Route Start Last Admin Trade Name Freq PRN Reason Stop Dose Admin Acetaminophen 650 mg 10/02/24 16:55 10/10/24 21:14 Acetaminophen 325 Mg Tablet PO 650 mg Q4H PRN Administration Mild Pain (1-3) or Fever Hydrocodone Bitart/Acetaminophen 1 tab 10/02/24 16:55 10/11/24 00:45 Hydrocodone/Acetaminophen (*Crx) 5-325 Mg Tablet PO 1 tab Q4H PRN Administration Pain Rated 4-6 Amoxicillin/Clavulanate Potassium 1 tablet 10/06/24 21:00 10/11/24 09:59 Amoxicillin/Clavulanate K 500-125 Mg Tab PO 10/20/24 21:01 1 tablet Q12HR [facility]IKA Administration Aspirin 81 mg 10/03/24 09:00 10/11/24 10:00 Aspirin 81 Mg Enteric Tablet PO 81 mg QAM [facility] Administration Atorvastatin Calcium 80 mg 10/03/24 09:00 10/11/24 09:59 Atorvastatin 40 Mg Tablet PO 80 mg DAILY [facility] Administration Bumetanide 0.5 mg 10/03/24 09:00 10/08/24 08:32 Bumetanide 0.5 Mg Tablet PO 0.5 mg DAILY [facility] Administration Buspirone HCl 10 mg 10/03/24 09:00 10/11/24 17:32 Buspirone Hcl 10 Mg Tablet PO 10 mg BID [facility] Administration Calcitriol 0.25 mcg 10/03/24 09:00 10/10/24 09:50 Calcitriol 0.25 Mcg Capsule PO 0.25 mcg MoWeFr@0900 [facility] Administration Dextrose 12.5 gm 10/02/24 17:35 Dextrose 50% 25 Gm/50 Ml Syringe IV PUSH PRN PRN Hypoglycemia Protocol Docusate Sodium 100 mg 10/03/24 09:00 10/11/24 17:32 Docusate Sodium 100 Mg Capsule PO 100 mg BID [facility] Administration Ezetimibe 10 mg 10/03/24 09:00 10/11/24 09:57 Ezetimibe 10 Mg Tablet PO 10 mg DAILY [facility] Administration Empagliflozin 25 mg 10/03/24 09:00 10/11/24 09:59 Empagliflozin 25 Mg Tablet BY MOUTH 25 mg QAM [facility] Administration Enoxaparin Sodium 30 mg 10/09/24 09:00 10/11/24 10:00 Enoxaparin 30 Mg/0.3 Ml Syringe SUB-Q 30 mg DAILY [facility] Administration Fluticasone Propionate 1 spray 10/11/24 21:00 Fluticasone Propionate 0.05% Na Spr 16 Gm Btl (*Bkc) NASAL Q12HR [facility]AMIKA Glucagon 1 mg 10/02/24 17:35 Glucagon For Inj 1 Mg Vial IM PRN PRN Hypoglycemia Protocol Glucose 15 gm 10/02/24 17:35 Glucose Oral Gel 15 Gm Of Glucse In 37.5 Gm Tube PO PRN PRN Hypoglycemia Protocol Dextrose 1,000 mls @ 100 mls/hr 10/02/24 17:35 Dextrose 5% 1,000 Ml IVPB PRN PRN Hypoglycemia Protocol Insulin Aspart 3 - 6 units 10/03/24 08:00 10/11/24 17:35 Insulin Aspart (*Bkc) 100 Units/Ml SUB-Q Not Given TIDWM [facility] Protocol Insulin Aspart 1 - 3 units 10/02/24 21:00 10/10/24 21:15 Insulin Aspart (*Bkc) 100 Units/Ml SUB-Q Not Given HS [facility] Protocol Insulin Human Regular 25 units 10/03/24 13:00 10/11/24 12:28 Insulin Human Regular (*Bkc) 100 Units/Ml SUB-Q 25 units DAILY@1200 [facility] Administration Insulin Human Regular 55 units 10/05/24 08:00 10/11/24 09:56 Insulin Human Regular (*Bkc) 100 Units/Ml SUB-Q Not Given DAILY@0800 [facility] Isosorbide Mononitrate 90 mg 10/03/24 09:00 10/11/24 09:58 Isosorbide Mononitrate 30 Mg Tab.Er.24h PO 90 mg DAILY [facility] Administration Miscellaneous Information 1 each 10/11/24 00:01 Hydrocodone/Tylenol Needs To Be Renewed Or It Will Automatically Discontinue. XX 11/10/24 00:00 CLARIFY TAMIKA Ondansetron HCl 4 mg 10/02/24 17:35 Ondansetron Inj 4 Mg/2 Ml Vial IV PUSH Q6H PRN Nausea And Vomiting Oxycodone HCl 5 mg 10/06/24 14:41 Oxycodone Hcl (*Crx) 5 Mg Tab Ir PO ONCE PRN Pain Pantoprazole Sodium 40 mg 10/03/24 21:00 10/10/24 21:15 Pantoprazole 40 Mg Tablet PO 40 mg QHS [facility] Administration Polyethylene Glycol 17 gm 10/05/24 14:48 Polyethylene Glycol 3350 17 Gm Powd.Pack PO QAM PRN Constipation Propranolol HCl 80 mg 10/03/24 09:00 10/11/24 17:31 Propranolol Hcl 40 Mg Tablet PO 80 mg TID [facility] Administration Sertraline HCl 50 mg 10/02/24 23:10 10/11/24 09:59 Sertraline Hcl 50 Mg Tablet BY MOUTH 50 mg DAILY [facility] Administration Sodium Chloride 1 spray 10/11/24 16:22 10/11/24 17:40 Saline 0.65% Fabiano Soln 44 Ml Btl NASAL 1 spray Q6HR PRN Administration Congestion Sodium Zirconium Cyclosilicate 10 gm 10/08/24 11:50 10/08/24 17:12 Sodium Zirconium Cyclosilicate 10 Gm Powd.Pack PO 10 gm BID@1000,1800 [facility] Administration Radiology Results: ITS Impressions Foot X-Ray 10/02/24 14:32 IMPRESSION: 1. Nondisplaced fracture of lateral aspect of head of first proximal phalanx. 2. Nondisplaced stellate fracture of tuft of first distal phalanx. 3. Mild polyarticular osteoarthritis. Renal Ultrasound 10/07/24 11:52 IMPRESSION: 1. 3.4 cm mixed solid and cystic lesion at the upper pole the right kidney with 2 cm solid nodular component which is concerning for renal cell carcinoma. Recommend urologic consultation and further evaluation with pre and postcontrast MRI or CT. 2. No hydronephrosis in either kidney. 3. Trabeculated bladder wall which can be seen with neurogenic bladder or chronic outlet obstruction such as in the setting of prostatomegaly. Chest X-Ray 10/09/24 10:38 Impression: Clear lungs. Status post CABG. Labs Labs: Laboratory Tests 10/11/24 07:06 02/22/25 07:06 Calcium 7.6 L Total Bilirubin 0.6 AST 74 H ALT 65 H Alkaline Phosphatase 169 H Total Protein 6.0 L Albumin 2.6 L
[2024-10-11 17:04] LABS: Glucose Point of Care 181 mg/dl (65-105)
[2024-10-11] MEDS: SALINE 0.65% NAS SOLN 44 ML BTL 1 SPRAY NASAL (17:40)
[2024-10-11 20:33] LABS: Glucose Point of Care 235 mg/dl (65-105)
[2024-10-11] MEDS: FLUTICASONE PROPIONATE 0.05% NA SPR 16 GM BTL (*BKC) 1 SPRAY NASAL (20:45)
[2024-10-11] MEDS: SODIUM BICARBONATE TAB 650 MG TABLET 1300 MG PO (20:46)
[2024-10-11] MEDS: PANTOPRAZOLE 40 MG TABLET PO (20:46)
[2024-10-11] MEDS: INSULIN ASPART (*BKC) 100 UNITS/ML SUB-Q (20:47)
[2024-10-12] VITALS (9 sets, daily range): BP systolic 133–161; BP diastolic 67–86; PULSE 58–66; RESP 13–20; TEMP 36.4–37.7; O2SAT 97–100
[2024-10-12] MEDS: ACETAMINOPHEN 325 MG TABLET 650 MG PO (00:01)
[2024-10-12] MEDS: SALINE 0.65% NAS SOLN 44 ML BTL 1 SPRAY NASAL (00:02)
--- NOTE | 2024-10-12 01:41 | PC.NURSE ---
Pt was having cold chills and stated he was not feeling good and stated, Im sweating all over the place. Vital signs were checked, his temperature was 99.9 F oral. Tylenol 650 mg given. Re-checked temp hour later 98.8F oral. Pt stated, I am comfortable now. Bed in lowest position with bd alarm on, with call light within reach. Will continue to monitor progress.
[2024-10-12 02:21] LABS: Influenza A QL RT-PCR Negative (Negative); Influenza B QL RT-PCR Negative (Negative); RSV RNA, RT-PCR Negative (Negative); SARS-CoV-2 RNA PCR Positive (Negative)
[2024-10-12 07:13] LABS: Basophils Percent Auto 0.4 % (0.2-1.2); Eosinophils Absolute Auto 0.1 K/mm3 (0-0.3); Eosinophils Percent Auto 0.7 % (0-4.4); Hematocrit 29.8 % (42.0-52.0); Immature Granulocyte Absolute 0.02 K/mm3 (0.00-0.031); Immature Granulocyte Percent A 0.3 % (0-0.5); Lymphocytes Absolute Auto 1.87 K/mm3 (0.9-3.2); Lymphocytes Percent Auto 27.1 % (18.3-44.2); Mean Corpuscular HGB Conc 33.6 g/dl (32-36); Mean Corpuscular Hemoglobin 31.3 pg (26-34); Mean Corpuscular Volume 93.4 fl (80-100); Mean Platelet Volume 10.2 fl (7.4-10.4); Monocytes Absolute Auto 0.9 K/mm3 (0.1-0.6); Monocytes Percent Auto 12.7 % (2.6-8.5); Neutrophils Absolute Auto 4.1 K/mm3 (1.3-6.7); Neutrophils Percent Auto 58.8 % (45.5-73.1); Platelet Count Result 289 k/mm3 (150-375); Red Blood Count 3.19 M/mm3 (4.6-6.20); Red Cell Distribution Width 14.2 % (11.5-14.5); White Blood Count 6.9 K/mm3 (4.5-10.0)
[2024-10-12 07:33] LABS: Potassium 4.9 mmol/L (3.4-5.0)
[2024-10-12 07:40] LABS: Alanine Aminotransferase 80 U/L (6-50); Albumin Level 2.5 g/dL (3.5-5.1); Alkaline Phosphatase 236 U/L (38-126); Anion Gap 13 mmol/L (4-12); Aspartate Amino Transferase 99 U/L (17-59); Bilirubin,Total 0.6 mg/dL (0.2-1.3); Blood Urea Nitrogen 91 mg/dL (9-20); Calcium 7.3 mg/dL (8.4-10.2); Carbon Dioxide 15 mmol/L (22-30); Chloride 105 mmol/L (98-107); Estimated CRCL calculation 17 ml/min; Estimated Glomerular Filt Rate 11; Glucose 169 mg/dL (65-110); Sodium 133 mmol/L (137-145)
[2024-10-12 08:09] LABS: Glucose Point of Care 182 mg/dl (65-105)
[2024-10-12] MEDS: EZETIMIBE 10 MG TABLET PO (09:09)
[2024-10-12] MEDS: ASPIRIN 81 MG ENTERIC TABLET PO (09:09)
[2024-10-12] MEDS: ATORVASTATIN 40 MG TABLET 80 MG PO (09:09)
[2024-10-12] MEDS: busPIRone HCL 10 MG TABLET PO ×2 (09:09→17:12)
[2024-10-12] MEDS: DOCUSATE SODIUM 100 MG CAPSULE PO (09:09)
[2024-10-12] MEDS: AMOXICILLIN/CLAVULANATE K 500-125 MG TAB 1 TABLET PO ×2 (09:10→20:42)
[2024-10-12] MEDS: SERTRALINE HCL 50 MG TABLET BY MOUTH (09:10)
[2024-10-12] MEDS: INSULIN HUMAN REGULAR (*BKC) 100 UNITS/ML 55 UNITS SUB-Q (09:10)
[2024-10-12] MEDS: ISOSORBIDE MONONITRATE 30 MG TAB.ER.24H 90 MG PO (09:10)
[2024-10-12] MEDS: PROPRANOLOL HCL 40 MG TABLET 80 MG PO ×3 (09:10→17:12)
[2024-10-12] MEDS: EMPAGLIFLOZIN 25 MG TABLET BY MOUTH (09:10)
[2024-10-12] MEDS: SODIUM BICARBONATE TAB 650 MG TABLET 1300 MG PO ×2 (09:10→17:12)
[2024-10-12] MEDS: ENOXAPARIN 30 MG/0.3 ML SYRINGE SUB-Q (09:11)
[2024-10-12] MEDS: FLUTICASONE PROPIONATE 0.05% NA SPR 16 GM BTL (*BKC) 1 SPRAY NASAL ×2 (09:11→22:04)
[2024-10-12 12:53] LABS: Glucose Point of Care 155 mg/dl (65-105)
--- NOTE | 2024-10-12 13:06 | P.PNIM_ITS ---
Progress Note: A&P Assessment and Plan (1) Diabetic foot ulcer: Code(s): E11.621 - Type 2 diabetes mellitus with foot ulcer; L97.509 - Non-pressure chronic ulcer of other part of unspecified foot with unspecified severity Status: Acute Assessment and Plan: patient reports injury to right great toe with worsening symptoms patient has severe diabetes and CAD with poor wound healing initial x-ray did show right great toe was also fractured * CRP elevate no WBC * Surgery consulted if debridement or amputation needed * blood cultures no growth today * wound culture ordered * NPO in case of possible procedure * IV cefepime, vancomycin and Flagyl * Will need close glucose control for any type of wound healing patient is a severely uncontrolled diabetic on high-dose insulin 10/04: * Day 1 post-op * Blood cultures NGTD * inoperative wound culture pending * continue with current ABX therapy will de-escalate with Culture and sensitivity * Plan is surgery 10/06 for amputation due to exposed fractured toe 10/05: * Postop day 2 * normal wbc no fever * blood cultures NGTD * wound culture still pending * surgery tomorrow hold morning Lovenox 10/06 10/06: * Amputation 10/06 * Aerobic culture grew Staphylococcus aureus * De-escalated ABX to doxycycline Augmentin times 14 days. 10/07: * Post-op day 2 * Minimal pain * ABX de-escalated based on sensitivities MSSA * 10/08 post op day 3 no specific complaints awaiting PT evaluation to return home with is what pt wants 10/09 - will continue current Augmentin and wound treatment plan 10/10 - will continue current plan of treatment 10/12/24: * Continue Augmentin as ordered. * Continue dressing changes. (2) Fracture of right great toe: Code(s): S92.401A - Displaced unspecified fracture of right great toe, initial encounter for closed fracture Status: Acute Assessment and Plan: * Nondisplaced fracture of lateral aspect of head of first proximal phalanx. * Nondisplaced stellate fracture of tuft of first distal phalanx. * Orthopedics consulted * Pain management * elevate at rest * Great toe was Amputated - wound management doing well. 10/12/24: * See #1 - s/p amputation (3) Chronic kidney disease, stage 3b: Code(s): N18.32 - Chronic kidney disease, stage 3b Status: Acute Assessment and Plan: Acute on chronic renal failure Baseline around mid 2.5 * CR 3.32 POA * Currently on vancomycin pharmacy to dose will need to deescalate cultures * Avoid nephrotoxic drugs. * Monitor antihypertensive drug therapy. * Avoid NSAIDs. * Routine CMP monitoring GFR. * Monitor electrolytes especially potassium. * Antibiotic doses depending on creatinine clearance. * Pharmacy does medications. 10/07: * Cr continues to trend up 3.37 today * de-escalated ABX therapy and had IV fluids with no improvement * Nephrology consulted for further evaluation or recommendation baseline mid 2's * Renal US pending 10/08 creat is 4 nephrology rounding see recommendations 10/09 - creat - 4.30, BUN 84, GFR 14. Nephrology aware and monitoring. --> will give 1 liter of IV fluids today 10/10 - creat - 4.57, BUN 81, GFR 13, Nephrology aware and monitoring --> Nephrology to follow. Stopped Bumex prior, worsening Renal function. 10/11/ creat - 5.11, BUN 84, GFR 11, K- 5.1 - Nephrology following as well. 10/12/24: * Upward trend in Cr/BUN continues with labs showing 5.29/91 today. * Nephrology is following. * Continue to hold Bumex. * Minimize/eliminate renal offending agents. * Continue to trend renal function with daily labs. (4) Type 2 diabetes mellitus with diabetic polyneuropathy: Code(s): E11.42 - Type 2 diabetes mellitus with diabetic polyneuropathy Status: Acute Assessment and Plan: * Diabetic diet * Holding semaglutide * Hemoglobin A1c pending * Accuchecks ACHS * SSI moderate dosing added * Patient is hard to control diabetic on several diabetic medication, and high- dose insulin started conversion to U 100 while hospitalized and adjust as need currently 65u/25u/10u * Continue Jardiance and Zetia 10/12/24: * Continue current glycemic regimen. * Monitor and adjust as necessary. (5) Diastolic dysfunction: Onset Date: 03/2022 Code(s): I51.89 - Other ill-defined heart diseases Status: Chronic Assessment and Plan: * patient does not appear to be in exacerbation * stopped Bumex 10/12/24: * Continues to appear euvolemic. (6) Presence of aortocoronary bypass graft: Onset Date: 10/2017 Code(s): Z95.1 - Presence of aortocoronary bypass graft Status: Acute Assessment and Plan: * Continue Inderal, aspirin, Lipitor, an imdur, Atorvastatin (7) COVID: Code(s): U07.1 - COVID-19 Status: Acute Assessment and Plan: 10/12/24: * Supportive care. * No steroids or other antivirals ordered in setting of no supplemental oxygen required. * PRN nebs ordered. (8) Renal mass, right: Code(s): N28.89 - Other specified disorders of kidney and ureter Status: Acute Assessment and Plan: 10/12/24: * A 3.4 cm mixed solid and cystic lesion at the upper pole the right kidney with 2 cm solid nodular component which is concerning for renal cell carcinoma. Recommend urologic consultation and further evaluation with pre and postcontrast MRI or CT. * Unable to do further imaging at this time due to renal function. * Urology and Nephrology following. Plan Time Spent With Patient Time with patient: 25 - 35 minutes Subjective Date/time seen: 10/12/24 1000 Interval history: This very pleasant male pt was examined at the bedside this AM. He endorses overall not feeling well. He has recently been dx'd with COVID and reports that he feels weak. He denies any CP, dyspnea or acute distress. Review of Systems Review of Systems: All systems reviewed & are unremarkable except as noted in HPI and below Exam Narrative: * GENERAL: Alert and oriented x 3. No acute distress. * LUNGS: Clear to auscultation bilaterally. No accessory muscle use. * CARDIOVASCULAR: Regular rate and rhythm. No murmur. No JVD. S1-S2 * ABDOMEN: Soft, non tenderness and non-distended. No palpable masses. * EXTREMITIES: No edema. Right phalange 1st dressing in place, rest of the toes have erythema, dorsal surface of foot with erythema border marked * SKIN: No rashes or lesions. Skin warm, dry. * NEUROLOGIC: No focal neurological deficits. CN II-XII grossly intact Objective Data Vital Signs Vital Signs: Vital Signs - 24 hr 10/11/24 14:47 10/11/24 17:31 10/11/24 18:24 Temperature 98.1 F 98.2 F Pulse Rate 64 61 65 Respiratory Rate 18 18 Blood Pressure 133/73 127/73 Pulse Oximetry 98 100 Oxygen Delivery 10/11/24 20:00 10/11/24 20:46 10/12/24 00:00 Temperature 99.0 F 99.9 F H Pulse Rate 63 65 Respiratory Rate 18 20 Blood Pressure 137/59 L 147/67 H Pulse Oximetry 99 97 Oxygen Delivery Room Air 10/12/24 00:01 10/12/24 01:01 10/12/24 04:00 Temperature 99.9 F H 98.8 F 98.3 F Pulse Rate 62 Respiratory Rate 18 Blood Pressure 151/71 H Pulse Oximetry 99 Oxygen Delivery 10/12/24 08:00 10/12/24 08:00 Temperature 97.7 F Pulse Rate 65 Respiratory Rate 18 Blood Pressure 155/72 H Pulse Oximetry 99 Oxygen Delivery Room Air Intake/Output Intake/Output: Intake & Output 10/09/24 10/10/24 10/11/24 10/12/24 23:59 23:59 23:59 23:59 Intake Total 1340 3464 1760 550 Output Total 125 400 525 400 Balance 1215 3064 1235 150 Meds/Results Medications: Active Medications Generic Name Dose Route Start Last Admin Trade Name Freq PRN Reason Stop Dose Admin Acetaminophen 650 mg 10/02/24 16:55 10/12/24 00:01 Acetaminophen 325 Mg Tablet PO 650 mg Q4H PRN Administration Mild Pain (1-3) or Fever Hydrocodone Bitart/Acetaminophen 1 tab 10/02/24 16:55 10/11/24 00:45 Hydrocodone/Acetaminophen (*Crx) 5-325 Mg Tablet PO 1 tab Q4H PRN Administration Pain Rated 4-6 Amoxicillin/Clavulanate Potassium 1 tablet 10/06/24 21:00 10/12/24 09:10 Amoxicillin/Clavulanate K 500-125 Mg Tab PO 10/20/24 21:01 1 tablet Q12HR TAMIKA Administration Aspirin 81 mg 10/03/24 09:00 10/12/24 09:09 Aspirin 81 Mg Enteric Tablet PO 81 mg QAM TAMIKA Administration Atorvastatin Calcium 80 mg 10/03/24 09:00 10/12/24 09:09 Atorvastatin 40 Mg Tablet PO 80 mg DAILY TAMIKA Administration Bumetanide 0.5 mg 10/03/24 09:00 10/08/24 08:32 Bumetanide 0.5 Mg Tablet PO 0.5 mg DAILY TAMIKA Administration Buspirone HCl 10 mg 10/03/24 09:00 10/12/24 09:09 Buspirone Hcl 10 Mg Tablet PO 10 mg BID TAMIKA Administration Calcitriol 0.25 mcg 10/03/24 09:00 10/10/24 09:50 Calcitriol 0.25 Mcg Capsule PO 0.25 mcg [id number]@0900 TAMIKA Administration Dextrose 12.5 gm 10/02/24 17:35 Dextrose 50% 25 Gm/50 Ml Syringe IV PUSH PRN PRN Hypoglycemia Protocol Docusate Sodium 100 mg 10/03/24 09:00 10/12/24 09:09 Docusate Sodium 100 Mg Capsule PO 100 mg BID TAMIKA Administration Ezetimibe 10 mg 10/03/24 09:00 10/12/24 09:09 Ezetimibe 10 Mg Tablet PO 10 mg DAILY TAMIKA Administration Empagliflozin 25 mg 10/03/24 09:00 10/12/24 09:10 Empagliflozin 25 Mg Tablet BY MOUTH 25 mg QAM TAMIKA Administration Enoxaparin Sodium 30 mg 10/09/24 09:00 10/12/24 09:11 Enoxaparin 30 Mg/0.3 Ml Syringe SUB-Q 30 mg DAILY TAMIKA Administration Fluticasone Propionate 1 spray 10/11/24 21:00 10/12/24 09:11 Fluticasone Propionate 0.05% Na Spr 16 Gm Btl (*Bkc) NASAL 1 spray Q12HR TAMIKA Administration Glucagon 1 mg 10/02/24 17:35 Glucagon For Inj 1 Mg Vial IM PRN PRN Hypoglycemia Protocol Glucose 15 gm 10/02/24 17:35 Glucose Oral Gel 15 Gm Of Glucse In 37.5 Gm Tube PO PRN PRN Hypoglycemia Protocol Dextrose 1,000 mls @ 100 mls/hr 10/02/24 17:35 Dextrose 5% 1,000 Ml IVPB PRN PRN Hypoglycemia Protocol Insulin Aspart 3 - 6 units 10/03/24 08:00 10/12/24 12:44 Insulin Aspart (*Bkc) 100 Units/Ml SUB-Q Not Given TIDWM [facility] Protocol Insulin Aspart 1 - 3 units 10/02/24 21:00 10/11/24 20:47 Insulin Aspart (*Bkc) 100 Units/Ml SUB-Q 1 units HS TAMIKA Administration Protocol Insulin Human Regular 25 units 10/03/24 13:00 10/12/24 12:48 Insulin Human Regular (*Bkc) 100 Units/Ml SUB-Q Not Given DAILY@1200 [facility] Insulin Human Regular 55 units 10/05/24 08:00 10/12/24 09:10 Insulin Human Regular (*Bkc) 100 Units/Ml SUB-Q 55 units DAILY@0800 [facility] Administration Isosorbide Mononitrate 90 mg 10/03/24 09:00 10/12/24 09:10 Isosorbide Mononitrate 30 Mg Tab.Er.24h PO 90 mg DAILY TAMIKA Administration Miscellaneous Information 1 each 10/11/24 00:01 Hydrocodone/Tylenol Needs To Be Renewed Or It Will Automatically Discontinue. XX 11/10/24 00:00 CLARIFY [facility] Ondansetron HCl 4 mg 10/02/24 17:35 Ondansetron Inj 4 Mg/2 Ml Vial IV PUSH Q6H PRN Nausea And Vomiting Oxycodone HCl 5 mg 10/06/24 14:41 Oxycodone Hcl (*Crx) 5 Mg Tab Ir PO ONCE PRN Pain Pantoprazole Sodium 40 mg 10/03/24 21:00 10/11/24 20:46 Pantoprazole 40 Mg Tablet PO 40 mg QHS TAMIKA Administration Polyethylene Glycol 17 gm 10/05/24 14:48 Polyethylene Glycol 3350 17 Gm Powd.Pack PO QAM PRN Constipation Propranolol HCl 80 mg 10/03/24 09:00 10/12/24 09:10 Propranolol Hcl 40 Mg Tablet PO 80 mg TID TAMIKA Administration Sertraline HCl 50 mg 10/02/24 23:10 10/12/24 09:10 Sertraline Hcl 50 Mg Tablet BY MOUTH 50 mg DAILY TAMIKA Administration Sodium Bicarbonate 1,300 mg 10/11/24 18:20 10/12/24 09:10 Sodium Bicarbonate Tab 650 Mg Tablet PO 10/13/24 17:01 1,300 mg BID TAMIKA Administration Sodium Chloride 1 spray 10/11/24 16:22 10/12/24 00:02 Saline 0.65% Fabiano Soln 44 Ml Btl NASAL 1 spray Q6HR PRN Administration Congestion Sodium Zirconium Cyclosilicate 10 gm 10/08/24 11:50 10/08/24 17:12 Sodium Zirconium Cyclosilicate 10 Gm Powd.Pack PO 10 gm BID@1000,1800 TAMIKA Administration Radiology Results: ITS Impressions Foot X-Ray 10/02/24 14:32 IMPRESSION: 1. Nondisplaced fracture of lateral aspect of head of first proximal phalanx. 2. Nondisplaced stellate fracture of tuft of first distal phalanx. 3. Mild polyarticular osteoarthritis. Renal Ultrasound 10/07/24 11:52 IMPRESSION: 1. 3.4 cm mixed solid and cystic lesion at the upper pole the right kidney with 2 cm solid nodular component which is concerning for renal cell carcinoma. Recommend urologic consultation and further evaluation with pre and postcontrast MRI or CT. 2. No hydronephrosis in either kidney. 3. Trabeculated bladder wall which can be seen with neurogenic bladder or chronic outlet obstruction such as in the setting of prostatomegaly. Chest X-Ray 10/12/24 10:05 IMPRESSION: 1. No acute cardiopulmonary disease. Labs Labs: Laboratory Results - last 24 hr 10/11/24 10/11/24 10/12/24 16:57 20:18 01:31 WBC RBC Hgb Hct MCV MCH MCHC RDW Plt Count MPV Immature Gran % (Auto) Neut % (Auto) Lymph % (Auto) [place] % (Auto) Eos % (Auto) Baso % (Auto) Lymph # (Auto) [place] # (Auto) Eos # (Auto) Baso # (Auto) Abs Immat Gran (auto) Absolute Neuts (auto) Absolute Nucleated RBC Nucleated RBC % Sodium Potassium Chloride Carbon Dioxide Anion Gap BUN Creatinine Estim Creat Clear Calc Estimated GFR Glucose POC Capillary Glucose 181 H 235 H Calcium Phosphorus Total Bilirubin AST ALT Alkaline Phosphatase Total Protein Albumin Influenza A (RT-PCR) Negative Influenza B (RT-PCR) Negative RSV (RT-PCR) Negative SARS-CoV-2 RNA (RT-PCR) Positive A 10/12/24 10/12/24 10/12/24 07:02 08:06 12:39 WBC 6.9 RBC 3.19 L Hgb 10.0 L Hct 29.8 L MCV 93.4 MCH 31.3 MCHC 33.6 RDW 14.2 Plt Count 289 MPV 10.2 Immature Gran % (Auto) 0.3 Neut % (Auto) 58.8 Lymph % (Auto) 27.1 [place] % (Auto) 12.7 H Eos % (Auto) 0.7 Baso % (Auto) 0.4 Lymph # (Auto) 1.87 [place] # (Auto) 0.9 H Eos # (Auto) 0.1 Baso # (Auto) 0.0 Abs Immat Gran (auto) 0.02 Absolute Neuts (auto) 4.1 Absolute Nucleated RBC 0.000 Nucleated RBC % 0.0 Sodium 133 L Potassium 4.9 Chloride 105 Carbon Dioxide 15 L Anion Gap 13 H BUN 91 H Creatinine 5.29 H Estim Creat Clear Calc 17 Estimated GFR 11 L Glucose 169 H POC Capillary Glucose 182 H 155 H Calcium 7.3 L Phosphorus 7.0 H Total Bilirubin 0.6 AST 99 H ALT 80 H Alkaline Phosphatase 236 H Total Protein 6.0 L Albumin 2.5 L Influenza A (RT-PCR) Influenza B (RT-PCR) RSV (RT-PCR) SARS-CoV-2 RNA (RT-PCR) Quality VTE Prophylaxis VTE prophylaxis: pharmacologic ordered
--- NOTE | 2024-10-12 13:27 | P.PNNP_ITS ---
Progress Note: A&P Assessment and Plan (1) JUAN CARLOS (acute kidney injury): Code(s): N17.9 - Acute kidney failure, unspecified Status: Acute Assessment and Plan: * as noted on admission - creatinine of 3.32mg/dl * came down to 2.9mg/dl transiently * presumed etiology likely secondary to acute infection - right great toe diabetic foot ulcer + cellulitis * however, cannot discount an element of CKD progression * evaluation to date noted: * renal u/s without hydro but concerning for renal mass * urine electrolytes pre-renal * urine eosinophils noted * UA (from 10/07) suggestive of infection -- culture Annie (but low CFU) * proteinuria noted * CPK normal * holding diuretic therapy for now * will give another trial of IVFs today (diminished oral intake and clear CXR) * worsening acidosis noted...on sodium bicarbonate * follow repeat labs and UOP (2) Chronic kidney disease, stage IV (severe): Code(s): N18.4 - Chronic kidney disease, stage 4 (severe) Status: Chronic Assessment and Plan: * baseline creatinine has been running 2.3 - 2.7mg/dl in the last few years * however, last creatinine up to 2.86mg/dl in July 2024 * due to diabetes, hypertension, vascular disease, (CAD + CHF + hyperlipidemia + PVD), and age * follows with Dr. Caprice Gusman for managment of his chronic kidney disease (3) Diabetic foot ulcer: Code(s): E11.621 - Type 2 diabetes mellitus with foot ulcer; L97.509 - Non-pressure chronic ulcer of other part of unspecified foot with unspecified severity Status: Acute Assessment and Plan: * as noted on admission * poor wound healing noted since injury * X-ray with right great toe fracture * complicated by cellulitis of right great toe * s/p right great toe amputation by Surgery (on 10/06) * culture data noted * blood cultures negative * would culture with Staph aureus * on antibiotics * local wound care (4) Diastolic dysfunction: Onset Date: 03/2022 Code(s): I51.89 - Other ill-defined heart diseases Status: Chronic Assessment and Plan: * appears compensated at this time * home diuretic therapy on hold due to #1 * follow volume/respiratory status (5) Anemia: Code(s): D64.9 - Anemia, unspecified Status: Chronic Assessment and Plan: * presumably related to CKD from some contributions from JUAN CARLOS, acute infection, and recent operative procedure * follow trend of H/H * no need for TAMIKO at this time (6) Urinary tract infection: Code(s): N39.0 - Urinary tract infection, site not specified Status: Acute Assessment and Plan: * recent UA (10/07) suggestive * urine culture with low CFU Annie * recheck UA (7) Hypertension: Code(s): I10 - Essential (primary) hypertension Status: Chronic Assessment and Plan: * reasonable control at this time * follow trend of hemodynamics (8) Type 2 diabetes mellitus with diabetic polyneuropathy: Code(s): E11.42 - Type 2 diabetes mellitus with diabetic polyneuropathy Status: Acute Assessment and Plan: * follow accu-checks * brittle control noted - last HgbA1c noted * glycemic control per hospitalist Will continue to follow. L Subjective Date/time seen: 10/12/24 13:27 Interval history: Follow-up for acute kidney injury/acute renal failure on chronic kidney disease. Moved to isolation room and noted to be COVID positive by recent viral testing; only real complaint is that of fatigue/weakness and diminished appetite/oral intake; unfortunately, renal function/creatinine continues to decline/deteriorate as noted by trend of labs although continues to make reasonable urine output; no other acute issues/events overnight or earlier this morning. Exam 2 Narrative: General: elderly WD/WN male in NAD Heart: normal S1 and S2; no rub Lungs: clear to auscultation Abdomen: soft, nontender, nondistended, positive bowel sounds Extremities: no cyanosis or clubbing; trace edema Skin: dressings over right foot apparent Objective Data Vital Signs Vital Signs: Vital Signs Temp Pulse Resp BP Pulse Ox O2 Del Method 10/12/24 12:00 97.8 F 63 18 157/86 H 98 10/12/24 08:00 Room Air 10/12/24 08:00 97.7 F 65 18 155/72 H 99 10/12/24 04:00 98.3 F 62 18 151/71 H 99 10/12/24 01:01 98.8 F 10/12/24 00:01 99.9 F H 10/12/24 00:00 99.9 F H 65 20 147/67 H 97 10/11/24 20:46 Room Air 10/11/24 20:00 99.0 F 63 18 137/59 L 99 10/11/24 18:24 98.2 F 65 18 127/73 100 10/11/24 17:31 61 Intake/Output Intake/Output: Intake & Output 10/09/24 10/10/24 10/11/24 10/12/24 23:59 23:59 23:59 23:59 Intake Total 1340 3464 1760 830 Output Total 125 400 525 400 Balance 1215 3064 1235 430 Meds/Results Medications: Active Medications Generic Name Dose Route Start Last Admin Trade Name Freq PRN Reason Stop Dose Admin Acetaminophen 650 mg 10/02/24 16:55 10/12/24 00:01 Acetaminophen 325 Mg Tablet PO 650 mg Q4H PRN Administration Mild Pain (1-3) or Fever Hydrocodone Bitart/Acetaminophen 1 tab 10/02/24 16:55 10/11/24 00:45 Hydrocodone/Acetaminophen (*Crx) 5-325 Mg Tablet PO 1 tab Q4H PRN Administration Pain Rated 4-6 Albuterol 2.5 mg 10/12/24 13:19 Albuterol Sulfate Neb 2.5 Mg/3 Ml Inh INHALATION Q4HRT PRN Shortness Of Breath Amoxicillin/Clavulanate Potassium 1 tablet 10/06/24 21:00 10/12/24 09:10 Amoxicillin/Clavulanate K 500-125 Mg Tab PO 10/20/24 21:01 1 tablet Q12HR TAMIKA Administration Aspirin 81 mg 10/03/24 09:00 10/12/24 09:09 Aspirin 81 Mg Enteric Tablet PO 81 mg QAM TAMIKA Administration Atorvastatin Calcium 80 mg 10/03/24 09:00 10/12/24 09:09 Atorvastatin 40 Mg Tablet PO 80 mg DAILY TAMIKA Administration Bumetanide 0.5 mg 10/03/24 09:00 10/08/24 08:32 Bumetanide 0.5 Mg Tablet PO 0.5 mg DAILY TAMIKA Administration Buspirone HCl 10 mg 10/03/24 09:00 10/12/24 09:09 Buspirone Hcl 10 Mg Tablet PO 10 mg BID TAMIKA Administration Calcitriol 0.25 mcg 10/03/24 09:00 10/10/24 09:50 Calcitriol 0.25 Mcg Capsule PO 0.25 mcg MoWeFr@0900 TAMIKA Administration Dextrose 12.5 gm 10/02/24 17:35 Dextrose 50% 25 Gm/50 Ml Syringe IV PUSH PRN PRN Hypoglycemia Protocol Docusate Sodium 100 mg 10/03/24 09:00 10/12/24 09:09 Docusate Sodium 100 Mg Capsule PO 100 mg BID TAMIKA Administration Ezetimibe 10 mg 10/03/24 09:00 10/12/24 09:09 Ezetimibe 10 Mg Tablet PO 10 mg DAILY TAMIKA Administration Empagliflozin 25 mg 10/03/24 09:00 10/12/24 09:10 Empagliflozin 25 Mg Tablet BY MOUTH 25 mg QAM TAMIKA Administration Enoxaparin Sodium 30 mg 10/09/24 09:00 10/12/24 09:11 Enoxaparin 30 Mg/0.3 Ml Syringe SUB-Q 30 mg DAILY TAMIKA Administration Fluticasone Propionate 1 spray 10/11/24 21:00 10/12/24 09:11 Fluticasone Propionate 0.05% Na Spr 16 Gm Btl (*Bkc) NASAL 1 spray Q12HR TAMIKA Administration Glucagon 1 mg 10/02/24 17:35 Glucagon For Inj 1 Mg Vial IM PRN PRN Hypoglycemia Protocol Glucose 15 gm 10/02/24 17:35 Glucose Oral Gel 15 Gm Of Glucse In 37.5 Gm Tube PO PRN PRN Hypoglycemia Protocol Dextrose 1,000 mls @ 100 mls/hr 10/02/24 17:35 Dextrose 5% 1,000 Ml IVPB PRN PRN Hypoglycemia Protocol Sodium Chloride 1,000 mls @ 75 mls/hr 10/12/24 14:55 Normal Saline Iv IV CONT 10/13/24 04:14 .[id number] [facility] Insulin Aspart 3 - 6 units 10/03/24 08:00 10/12/24 12:44 Insulin Aspart (*Bkc) 100 Units/Ml SUB-Q Not Given TIDWM [facility] Protocol Insulin Aspart 1 - 3 units 10/02/24 21:00 10/11/24 20:47 Insulin Aspart (*Bkc) 100 Units/Ml SUB-Q 1 units HS [facility] Administration Protocol Insulin Human Regular 25 units 10/03/24 13:00 10/12/24 12:48 Insulin Human Regular (*Bkc) 100 Units/Ml SUB-Q Not Given DAILY@1200 [facility] Insulin Human Regular 55 units 10/05/24 08:00 10/12/24 09:10 Insulin Human Regular (*Bkc) 100 Units/Ml SUB-Q 55 units DAILY@0800 [facility] Administration Isosorbide Mononitrate 90 mg 10/03/24 09:00 10/12/24 09:10 Isosorbide Mononitrate 30 Mg Tab.Er.24h PO 90 mg DAILY TAMIKA Administration Miscellaneous Information 1 each 10/11/24 00:01 Hydrocodone/Tylenol Needs To Be Renewed Or It Will Automatically Discontinue. XX 11/10/24 00:00 CLARIFY [facility] Ondansetron HCl 4 mg 10/02/24 17:35 Ondansetron Inj 4 Mg/2 Ml Vial IV PUSH Q6H PRN Nausea And Vomiting Oxycodone HCl 5 mg 10/06/24 14:41 Oxycodone Hcl (*Crx) 5 Mg Tab Ir PO ONCE PRN Pain Pantoprazole Sodium 40 mg 10/03/24 21:00 10/11/24 20:46 Pantoprazole 40 Mg Tablet PO 40 mg QHS [facility] Administration Polyethylene Glycol 17 gm 10/05/24 14:48 Polyethylene Glycol 3350 17 Gm Powd.Pack PO QAM PRN Constipation Propranolol HCl 80 mg 10/03/24 09:00 10/12/24 13:23 Propranolol Hcl 40 Mg Tablet PO 80 mg TID [facility] Administration Sertraline HCl 50 mg 10/02/24 23:10 10/12/24 09:10 Sertraline Hcl 50 Mg Tablet BY MOUTH 50 mg DAILY [facility] Administration Sodium Bicarbonate 1,300 mg 10/11/24 18:20 10/12/24 09:10 Sodium Bicarbonate Tab 650 Mg Tablet PO 10/13/24 17:01 1,300 mg BID [facility] Administration Sodium Chloride 1 spray 10/11/24 16:22 10/12/24 00:02 Saline 0.65% Fabiano Soln 44 Ml Btl NASAL 1 spray Q6HR PRN Administration Congestion Sodium Zirconium Cyclosilicate 10 gm 10/08/24 11:50 10/08/24 17:12 Sodium Zirconium Cyclosilicate 10 Gm Powd.Pack PO 10 gm BID@1000,1800 TAMIKA Administration Radiology Results: ITS Impressions Foot X-Ray 10/02/24 14:32 IMPRESSION: 1. Nondisplaced fracture of lateral aspect of head of first proximal phalanx. 2. Nondisplaced stellate fracture of tuft of first distal phalanx. 3. Mild polyarticular osteoarthritis. Renal Ultrasound 10/07/24 11:52 IMPRESSION: 1. 3.4 cm mixed solid and cystic lesion at the upper pole the right kidney with 2 cm solid nodular component which is concerning for renal cell carcinoma. Recommend urologic consultation and further evaluation with pre and postcontrast MRI or CT. 2. No hydronephrosis in either kidney. 3. Trabeculated bladder wall which can be seen with neurogenic bladder or chronic outlet obstruction such as in the setting of prostatomegaly. Chest X-Ray 10/12/24 10:05 IMPRESSION: 1. No acute cardiopulmonary disease. Labs Labs: Laboratory Tests 10/12/24 07:02 10/12/24 07:02 Calcium 7.3 L Phosphorus 7.0 H Total Bilirubin 0.6 AST 99 H ALT 80 H Alkaline Phosphatase 236 H Total Protein 6.0 L Albumin 2.5 L
[2024-10-12 16:46] LABS: Glucose Point of Care 108 mg/dl (65-105)
[2024-10-12] MEDS: SODIUM CHLORIDE 0.9% IV 1,000 ML 75 ML IV CONT (17:13)
[2024-10-12 20:35] LABS: Glucose Point of Care 81 mg/dl (65-105)
[2024-10-12] MEDS: PANTOPRAZOLE 40 MG TABLET PO (20:42)
[2024-10-13 04:00] VITALS: BP 169/73; PULSE 65; RESP 14; TEMP 36.7; O2SAT 97
[2024-10-13 07:25] LABS: Add Urine Microscopic? YES; Appearance Urine Turbid (Clear); Bacteria Urine None Seen /hpf; Bilirubin Urine Negative (Negative); Blood Urine 3+ (Negative); Color Urine Yellow (Yellow); Glucose Urine UA 2+ mg/dL (Negative); Ketones Urine Negative (Negative); Leukocyte Esterase Ur 2+ LEU/UL (Negative); Need Manual Microscopic Reviewed; Nitrate Urine Negative (Negative); Protein Urine 4+ mg/dL (Negative); Specific Grav Ur 1.021 (1.001-1.035); Squamous Epithelial Cell Urine Occasional /hpf (Few); Urobilinogen Urine 0.2 mg/dL (<2.0); WBC Urine 51-100 /hpf (0-3)
[2024-10-13 08:00] VITALS: BP 165/80; PULSE 62; RESP 18; TEMP 36.5; O2SAT 98
[2024-10-13 08:13] LABS: Glucose Point of Care 155 mg/dl (65-105)
[2024-10-13 08:29] LABS: Basophils Percent Auto 0.2 % (0.2-1.2); Eosinophils Percent Auto 0.4 % (0-4.4); Hematocrit 33.5 % (42.0-52.0); Hemoglobin 10.8 g/dL (14.0-18.0); Immature Granulocyte Absolute 0.04 K/mm3 (0.00-0.031); Immature Granulocyte Percent A 0.5 % (0-0.5); Lymphocytes Absolute Auto 1.82 K/mm3 (0.9-3.2); Lymphocytes Percent Auto 22.3 % (18.3-44.2); Mean Corpuscular HGB Conc 32.2 g/dl (32-36); Mean Corpuscular Hemoglobin 30.5 pg (26-34); Mean Corpuscular Volume 94.6 fl (80-100); Mean Platelet Volume 10.4 fl (7.4-10.4); Monocytes Absolute Auto 0.7 K/mm3 (0.1-0.6); Monocytes Percent Auto 9.1 % (2.6-8.5); Neutrophils Absolute Auto 5.5 K/mm3 (1.3-6.7); Neutrophils Percent Auto 67.5 % (45.5-73.1); Platelet Count Result 276 k/mm3 (150-375); Red Blood Count 3.54 M/mm3 (4.6-6.20); Red Cell Distribution Width 14.2 % (11.5-14.5); White Blood Count 8.2 K/mm3 (4.5-10.0)
[2024-10-13] MEDS: ASPIRIN 81 MG ENTERIC TABLET PO (08:35)
[2024-10-13] MEDS: EMPAGLIFLOZIN 25 MG TABLET BY MOUTH (08:35)
[2024-10-13] MEDS: DOCUSATE SODIUM 100 MG CAPSULE PO ×2 (08:35→16:50)
[2024-10-13] MEDS: SERTRALINE HCL 50 MG TABLET BY MOUTH (08:35)
[2024-10-13] MEDS: ATORVASTATIN 40 MG TABLET 80 MG PO (08:35)
[2024-10-13] MEDS: PROPRANOLOL HCL 40 MG TABLET 80 MG PO ×3 (08:36→16:49)
[2024-10-13] MEDS: SODIUM BICARBONATE TAB 650 MG TABLET 1300 MG PO ×2 (08:36→18:47)
[2024-10-13] MEDS: AMOXICILLIN/CLAVULANATE K 500-125 MG TAB 1 TABLET PO ×2 (08:36→21:30)
[2024-10-13] MEDS: EZETIMIBE 10 MG TABLET PO (08:36)
[2024-10-13] MEDS: busPIRone HCL 10 MG TABLET PO ×2 (08:36→16:50)
[2024-10-13] MEDS: calcitrioL 0.25 MCG CAPSULE PO (08:36)
[2024-10-13] MEDS: ISOSORBIDE MONONITRATE 30 MG TAB.ER.24H 90 MG PO (08:36)
[2024-10-13] MEDS: ENOXAPARIN 30 MG/0.3 ML SYRINGE SUB-Q (08:37)
[2024-10-13] MEDS: FLUTICASONE PROPIONATE 0.05% NA SPR 16 GM BTL (*BKC) 1 SPRAY NASAL ×2 (08:37→21:30)
[2024-10-13] MEDS: INSULIN HUMAN REGULAR (*BKC) 100 UNITS/ML 55 UNITS SUB-Q (08:42)
[2024-10-13 08:50] LABS: Alanine Aminotransferase 66 U/L (6-50); Albumin Level 2.6 g/dL (3.5-5.1); Alkaline Phosphatase 224 U/L (38-126); Anion Gap 14 mmol/L (4-12); Aspartate Amino Transferase 76 U/L (17-59); Bilirubin,Total 0.7 mg/dL (0.2-1.3); Blood Urea Nitrogen 90 mg/dL (9-20); Calcium 7.2 mg/dL (8.4-10.2); Carbon Dioxide 14 mmol/L (22-30); Chloride 105 mmol/L (98-107); Estimated CRCL calculation 17 ml/min; Estimated Glomerular Filt Rate 10; Glucose 149 mg/dL (65-110); Magnesium 2.4 mg/dL (1.6-2.3); Potassium 4.9 mmol/L (3.4-5.0); Sodium 133 mmol/L (137-145)
--- NOTE | 2024-10-13 10:32 | P.PNNP_ITS ---
Progress Note: A&P Assessment and Plan (1) JUAN CARLOS (acute kidney injury): Code(s): N17.9 - Acute kidney failure, unspecified Status: Acute Assessment and Plan: * as noted on admission - creatinine of 3.32mg/dl * came down to 2.9mg/dl transiently * presumed etiology likely secondary to acute infection - right great toe diabetic foot ulcer + cellulitis * however, cannot discount an element of CKD progression * evaluation to date noted: * renal u/s without hydro but concerning for renal mass * urine electrolytes pre-renal * urine eosinophils noted * UA (from 10/07) suggestive of infection -- culture Annie (but low CFU) * proteinuria noted * CPK normal * holding diuretic therapy for now * will give another trial of IVFs today (diminished oral intake and clear CXR) * worsening acidosis noted...on sodium bicarbonate * follow repeat labs and UOP (2) Chronic kidney disease, stage IV (severe): Code(s): N18.4 - Chronic kidney disease, stage 4 (severe) Status: Chronic Assessment and Plan: * baseline creatinine has been running 2.3 - 2.7mg/dl in the last few years * however, last creatinine up to 2.86mg/dl in July 2024 * due to diabetes, hypertension, vascular disease, (CAD + CHF + hyperlipidemia + PVD), and age * follows with Dr. Caprice Gusman for managment of his chronic kidney disease (3) Diabetic foot ulcer: Code(s): E11.621 - Type 2 diabetes mellitus with foot ulcer; L97.509 - Non-pressure chronic ulcer of other part of unspecified foot with unspecified severity Status: Acute Assessment and Plan: * as noted on admission * poor wound healing noted since injury * X-ray with right great toe fracture * complicated by cellulitis of right great toe * s/p right great toe amputation by Surgery (on 10/06) * culture data noted * blood cultures negative * would culture with Staph aureus * on antibiotics * local wound care (4) COVID: Code(s): U07.1 - COVID-19 Status: Acute Assessment and Plan: * as noted by recent testing * no evidence of hypoxia * possibly playing a role with #1(?) * continue supportive care (5) Diastolic dysfunction: Onset Date: 03/2022 Code(s): I51.89 - Other ill-defined heart diseases Status: Chronic Assessment and Plan: * appears compensated at this time * home diuretic therapy on hold due to #1 * follow volume/respiratory status (6) Anemia: Code(s): D64.9 - Anemia, unspecified Status: Chronic Assessment and Plan: * presumably related to CKD from some contributions from JUAN CARLOS, acute infection, and recent operative procedure * follow trend of H/H * no need for TAMIKO at this time (7) Urinary tract infection: Code(s): N39.0 - Urinary tract infection, site not specified Status: Acute Assessment and Plan: * recent UA (10/07) suggestive * urine culture with low CFU Annie * recheck UA (8) Hypertension: Code(s): I10 - Essential (primary) hypertension Status: Chronic Assessment and Plan: * reasonable control at this time * follow trend of hemodynamics (9) Renal mass, right: Code(s): N28.89 - Other specified disorders of kidney and ureter Status: Acute Assessment and Plan: * as noted on renal ultrasound * Urology recommendations noted (10) Type 2 diabetes mellitus with diabetic polyneuropathy: Code(s): E11.42 - Type 2 diabetes mellitus with diabetic polyneuropathy Status: Acute Assessment and Plan: * follow accu-checks * brittle control noted - last HgbA1c noted * glycemic control per hospitalist Will continue to follow. L Subjective Date/time seen: 10/13/24 10:32 Interval history: Follow-up for acute kidney injury/acute renal failure on chronic kidney disease. Main complain is that of fatigue and generalized weakness; unfortunately, renal function continues to deteriorate despite supportive interventions -- trial of IVFs yesterday/overnight (normal saline 75cc/hr x 1 liter) did not really improve his creatinine; he continues to make urine and has no critical electrolytes other than worsening acidosis. Exam 2 Narrative: General: elderly WD/WN male in NAD Heart: normal S1 and S2; no rub Lungs: clear to auscultation Abdomen: soft, nontender, nondistended, positive bowel sounds Extremities: no cyanosis or clubbing; trace edema Skin: dressings over right foot in place Objective Data Vital Signs Vital Signs: Vital Signs Temp Pulse Resp BP Pulse Ox O2 Del Method 10/13/24 10:00 98.4 F 64 18 141/81 H 99 10/13/24 08:00 62 18 98 Room Air 10/13/24 08:00 97.7 F 62 18 165/80 H 98 10/13/24 04:00 98.0 F 65 14 169/73 H 97 10/12/24 23:53 97.6 F 66 20 161/83 H 98 10/12/24 20:00 97.8 F 58 L 13 133/68 98 10/12/24 16:00 97.6 F 65 18 152/70 H 100 Intake/Output Intake/Output: Intake & Output 10/10/24 10/11/24 10/12/24 10/13/24 23:59 23:59 23:59 23:59 Intake Total 3464 1760 890 790 Output Total 400 525 400 450 Balance 3064 1235 490 340 Meds/Results Medications: Active Medications Generic Name Dose Route Start Last Admin Trade Name Freq PRN Reason Stop Dose Admin Acetaminophen 650 mg 10/02/24 16:55 10/12/24 00:01 Acetaminophen 325 Mg Tablet PO 650 mg Q4H PRN Administration Mild Pain (1-3) or Fever Albuterol 2.5 mg 10/12/24 13:19 Albuterol Sulfate Neb 2.5 Mg/3 Ml Inh INHALATION Q4HRT PRN Shortness Of Breath Amoxicillin/Clavulanate Potassium 1 tablet 10/06/24 21:00 10/13/24 08:36 Amoxicillin/Clavulanate K 500-125 Mg Tab PO 10/20/24 21:01 1 tablet Q12HR TAMIKA Administration Aspirin 81 mg 10/03/24 09:00 10/13/24 08:35 Aspirin 81 Mg Enteric Tablet PO 81 mg QAM TAMIKA Administration Atorvastatin Calcium 80 mg 10/03/24 09:00 10/13/24 08:35 Atorvastatin 40 Mg Tablet PO 80 mg DAILY TAMIKA Administration Bumetanide 0.5 mg 10/03/24 09:00 10/08/24 08:32 Bumetanide 0.5 Mg Tablet PO 0.5 mg DAILY TAMIKA Administration Buspirone HCl 10 mg 10/03/24 09:00 10/13/24 08:36 Buspirone Hcl 10 Mg Tablet PO 10 mg BID TAMIKA Administration Calcitriol 0.25 mcg 10/03/24 09:00 10/13/24 08:36 Calcitriol 0.25 Mcg Capsule PO 0.25 mcg MoWeFr@0900 TAMIKA Administration Dextrose 12.5 gm 10/02/24 17:35 Dextrose 50% 25 Gm/50 Ml Syringe IV PUSH PRN PRN Hypoglycemia Protocol Docusate Sodium 100 mg 10/03/24 09:00 10/13/24 08:35 Docusate Sodium 100 Mg Capsule PO 100 mg BID TAMIKA Administration Ezetimibe 10 mg 10/03/24 09:00 10/13/24 08:36 Ezetimibe 10 Mg Tablet PO 10 mg DAILY TAMIKA Administration Empagliflozin 25 mg 10/03/24 09:00 10/13/24 08:35 Empagliflozin 25 Mg Tablet BY MOUTH 25 mg QAM [facility] Administration Enoxaparin Sodium 30 mg 10/09/24 09:00 10/13/24 08:37 Enoxaparin 30 Mg/0.3 Ml Syringe SUB-Q 30 mg DAILY TAMIKA Administration Fluticasone Propionate 1 spray 10/11/24 21:00 10/13/24 08:37 Fluticasone Propionate 0.05% Na Spr 16 Gm Btl (*Bkc) NASAL 1 spray Q12HR TAMIKA Administration Glucagon 1 mg 10/02/24 17:35 Glucagon For Inj 1 Mg Vial IM PRN PRN Hypoglycemia Protocol Glucose 15 gm 10/02/24 17:35 Glucose Oral Gel 15 Gm Of Glucse In 37.5 Gm Tube PO PRN PRN Hypoglycemia Protocol Dextrose 1,000 mls @ 100 mls/hr 10/02/24 17:35 Dextrose 5% 1,000 Ml IVPB PRN PRN Hypoglycemia Protocol Insulin Aspart 3 - 6 units 10/03/24 08:00 10/13/24 11:49 Insulin Aspart (*Bkc) 100 Units/Ml SUB-Q Not Given TIDWM [facility] Protocol Insulin Aspart 1 - 3 units 10/02/24 21:00 10/12/24 20:43 Insulin Aspart (*Bkc) 100 Units/Ml SUB-Q Not Given HS [facility] Protocol Insulin Human Regular 25 units 10/03/24 13:00 10/12/24 12:48 Insulin Human Regular (*Bkc) 100 Units/Ml SUB-Q Not Given DAILY@1200 [facility] Insulin Human Regular 55 units 10/05/24 08:00 10/13/24 08:42 Insulin Human Regular (*Bkc) 100 Units/Ml SUB-Q 55 units DAILY@0800 TAMIKA Administration Isosorbide Mononitrate 90 mg 10/03/24 09:00 10/13/24 08:36 Isosorbide Mononitrate 30 Mg Tab.Er.24h PO 90 mg DAILY TAMIKA Administration Loperamide HCl 2 mg 10/13/24 13:26 Loperamide Hcl 2 Mg Capsule PO PRN PRN Diarrhea Ondansetron HCl 4 mg 10/02/24 17:35 Ondansetron Inj 4 Mg/2 Ml Vial IV PUSH Q6H PRN Nausea And Vomiting Oxycodone HCl 5 mg 10/06/24 14:41 Oxycodone Hcl (*Crx) 5 Mg Tab Ir PO ONCE PRN Pain Pantoprazole Sodium 40 mg 10/03/24 21:00 10/12/24 20:42 Pantoprazole 40 Mg Tablet PO 40 mg QHS TAMIKA Administration Polyethylene Glycol 17 gm 10/05/24 14:48 Polyethylene Glycol 3350 17 Gm Powd.Pack PO QAM PRN Constipation Propranolol HCl 80 mg 10/03/24 09:00 10/13/24 08:36 Propranolol Hcl 40 Mg Tablet PO 80 mg TID TAMIKA Administration Sertraline HCl 50 mg 10/02/24 23:10 10/13/24 08:35 Sertraline Hcl 50 Mg Tablet BY MOUTH 50 mg DAILY TAMIKA Administration Sodium Bicarbonate 1,300 mg 10/11/24 18:20 10/13/24 08:36 Sodium Bicarbonate Tab 650 Mg Tablet PO 10/13/24 17:01 1,300 mg BID TAMIKA Administration Sodium Chloride 1 spray 10/11/24 16:22 10/12/24 00:02 Saline 0.65% Fabiano Soln 44 Ml Btl NASAL 1 spray Q6HR PRN Administration Congestion Radiology Results: ITS Impressions Foot X-Ray 10/02/24 14:32 IMPRESSION: 1. Nondisplaced fracture of lateral aspect of head of first proximal phalanx. 2. Nondisplaced stellate fracture of tuft of first distal phalanx. 3. Mild polyarticular osteoarthritis. Renal Ultrasound 10/07/24 11:52 IMPRESSION: 1. 3.4 cm mixed solid and cystic lesion at the upper pole the right kidney with 2 cm solid nodular component which is concerning for renal cell carcinoma. Recommend urologic consultation and further evaluation with pre and postcontrast MRI or CT. 2. No hydronephrosis in either kidney. 3. Trabeculated bladder wall which can be seen with neurogenic bladder or chronic outlet obstruction such as in the setting of prostatomegaly. Chest X-Ray 10/12/24 10:05 IMPRESSION: 1. No acute cardiopulmonary disease. Labs Labs: Laboratory Tests 10/13/24 08:08 10/13/24 08:08 Calcium 7.2 L Phosphorus 8.0 H Magnesium 2.4 H Total Bilirubin 0.7 AST 76 H ALT 66 H Alkaline Phosphatase 224 H Total Protein 6.0 L Albumin 2.6 L
[2024-10-13 11:53] LABS: Glucose Point of Care 127 mg/dl (65-105)
[2024-10-13 12:00] VITALS: BP 141/81; PULSE 64; RESP 18; TEMP 36.9; O2SAT 99
--- NOTE | 2024-10-13 13:16 | P.PNIM_ITS ---
Progress Note: A&P Assessment and Plan (1) Diabetic foot ulcer: Code(s): E11.621 - Type 2 diabetes mellitus with foot ulcer; L97.509 - Non-pressure chronic ulcer of other part of unspecified foot with unspecified severity Status: Acute Assessment and Plan: patient reports injury to right great toe with worsening symptoms patient has severe diabetes and CAD with poor wound healing initial x-ray did show right great toe was also fractured * CRP elevate no WBC * Surgery consulted if debridement or amputation needed * blood cultures no growth today * wound culture ordered * NPO in case of possible procedure * IV cefepime, vancomycin and Flagyl * Will need close glucose control for any type of wound healing patient is a severely uncontrolled diabetic on high-dose insulin 10/04: * Day 1 post-op * Blood cultures NGTD * inoperative wound culture pending * continue with current ABX therapy will de-escalate with Culture and sensitivity * Plan is surgery 10/06 for amputation due to exposed fractured toe 10/05: * Postop day 2 * normal wbc no fever * blood cultures NGTD * wound culture still pending * surgery tomorrow hold morning Lovenox 10/06 10/06: * Amputation 10/06 * Aerobic culture grew Staphylococcus aureus * De-escalated ABX to doxycycline Augmentin times 14 days. 10/07: * Post-op day 2 * Minimal pain * ABX de-escalated based on sensitivities MSSA * 10/08 post op day 3 no specific complaints awaiting PT evaluation to return home with HH is what pt wants 10/09 - will continue current Augmentin and wound treatment plan 10/10 - will continue current plan of treatment 10/12/24: * Continue Augmentin as ordered. * Continue dressing changes. 10/13/24: * Stable without any complaints of pain. Normal WBC's. * Continue dressings as ordered and Augmentin. (2) Fracture of right great toe: Code(s): S92.401A - Displaced unspecified fracture of right great toe, initial encounter for closed fracture Status: Acute Assessment and Plan: * Nondisplaced fracture of lateral aspect of head of first proximal phalanx. * Nondisplaced stellate fracture of tuft of first distal phalanx. * Orthopedics consulted * Pain management * elevate at rest * Great toe was Amputated - wound management doing well. 10/12/24: * See #1 - s/p amputation (3) Chronic kidney disease, stage 3b: Code(s): N18.32 - Chronic kidney disease, stage 3b Status: Acute Assessment and Plan: Acute on chronic renal failure Baseline around mid 2.5 * CR 3.32 POA * Currently on vancomycin pharmacy to dose will need to deescalate cultures * Avoid nephrotoxic drugs. * Monitor antihypertensive drug therapy. * Avoid NSAIDs. * Routine CMP monitoring GFR. * Monitor electrolytes especially potassium. * Antibiotic doses depending on creatinine clearance. * Pharmacy does medications. 10/07: * Cr continues to trend up 3.37 today * de-escalated ABX therapy and had IV fluids with no improvement * Nephrology consulted for further evaluation or recommendation baseline mid 2's * Renal US pending 10/08 creat is 4 nephrology rounding see recommendations 10/09 - creat - 4.30, BUN 84, GFR 14. Nephrology aware and monitoring. --> will give 1 liter of IV fluids today 10/10 - creat - 4.57, BUN 81, GFR 13, Nephrology aware and monitoring --> Nephrology to follow. Stopped Bumex prior, worsening Renal function. creat - 5.11, BUN 84, GFR 11, K- 5.1 - Nephrology following as well. 10/12/24: * Upward trend in Cr/BUN continues with labs showing 5.29/91 today. * Nephrology is following. * Continue to hold Bumex. * Minimize/eliminate renal offending agents. * Continue to trend renal function with daily labs. 10/13/24: * Acute on chronic progression vs. JUAN CARLOS from COVID * Nephrology continues to follow. * Holding Bumex. * Continue to trend. * NM Renal scan ordered for today. (4) Type 2 diabetes mellitus with diabetic polyneuropathy: Code(s): E11.42 - Type 2 diabetes mellitus with diabetic polyneuropathy Status: Acute Assessment and Plan: * Diabetic diet * Holding semaglutide * Hemoglobin A1c pending * Accuchecks ACHS * SSI moderate dosing added * Patient is hard to control diabetic on several diabetic medication, and high- dose insulin started conversion to U 100 while hospitalized and adjust as need currently 65u/25u/10u * Continue Jardiance and Zetia 10/12/24: * Continue current glycemic regimen. * Monitor and adjust as necessary. 10/13/24: * Fasting glucose this AM is 149. * No further adjustments to insulin dosing. * Continue current regimen for management. (5) Diastolic dysfunction: Onset Date: 03/2022 Code(s): I51.89 - Other ill-defined heart diseases Status: Chronic Assessment and Plan: * patient does not appear to be in exacerbation * stopped Bumex 10/12/24: * Continues to appear euvolemic. 10/13/24: * No s/s of decompensated heart failure. Continue to hold Bumex. (6) Presence of aortocoronary bypass graft: Onset Date: 10/2017 Code(s): Z95.1 - Presence of aortocoronary bypass graft Status: Acute Assessment and Plan: * Continue Inderal, aspirin, Lipitor, an imdur, Atorvastatin 10/13/24: * Continue current meds. (7) COVID: Code(s): U07.1 - COVID-19 Status: Acute Assessment and Plan: 10/12/24: * Supportive care. * No steroids or other antivirals ordered in setting of no supplemental oxygen required. * PRN nebs ordered. 10/13/24: * Continue supportive care. (8) Renal mass, right: Code(s): N28.89 - Other specified disorders of kidney and ureter Status: Acute Assessment and Plan: 10/12/24: * A 3.4 cm mixed solid and cystic lesion at the upper pole the right kidney with 2 cm solid nodular component which is concerning for renal cell carcinoma. Recommend urologic consultation and further evaluation with pre and postcontrast MRI or CT. * Unable to do further imaging at this time due to renal function. * Urology and Nephrology following. 10/13/24: * Discussed with Dr. Jacobsen whether or not it is appropriate to inquire about doing a biopsy of the renal mass and whether or not that is contributing to his renal function, but he does not believe that it is contributing. He further notes that if there is concern for possible neoplastic disease, typically the mass is just resected and not biopsied. Plan Time Spent With Patient Time with patient: 25 - 35 minutes Subjective Date/time seen: 10/13/24 13:16 Interval history: This pt was examined at the bedside today in interval assessment. He has interval further increase in Creatinine and BUN today to 5.49/90. A NM scan is scheduled for today. Pt is without any further complaints today other that the ones previously noted of weakness and fatigue. He has already seen Dr. Jacobsen and his note has been reviewed. The mentioned IVF trial was performed last evening without any improvement in his overall condition or renal function. I discussed with Dr. Jacobsen the pt's case and he has no new information to give today but we will await the results of the NM Renal scan and monitor. He will continue to follow while pt is admitted. I further asked if there was any need for possible biopsy needed and he advised no, and that this type of mass is just usually resected. Review of Systems Review of Systems: All systems reviewed & are unremarkable except as noted in HPI and below Exam Narrative: * GENERAL: Alert and oriented x 3. No acute distress. * LUNGS: Clear to auscultation bilaterally. No accessory muscle use. * CARDIOVASCULAR: Regular rate and rhythm. No murmur. No JVD. S1-S2 * ABDOMEN: Soft, non tenderness and non-distended. No palpable masses. * EXTREMITIES: No edema. Right phalange 1st dressing in place, rest of the toes have erythema, dorsal surface of foot with erythema border marked * SKIN: No rashes or lesions. Skin warm, dry. * NEUROLOGIC: No focal neurological deficits. CN II-XII grossly intact Objective Data Vital Signs Vital Signs: Vital Signs - 24 hr 10/12/24 16:00 10/12/24 20:00 10/12/24 23:53 Temperature 97.6 F 97.8 F 97.6 F Pulse Rate 65 58 L 66 Respiratory Rate 18 13 20 Blood Pressure 152/70 H 133/68 161/83 H Pulse Oximetry 100 98 98 Oxygen Delivery 10/13/24 04:00 10/13/24 08:00 10/13/24 08:00 Temperature 98.0 F 97.7 F Pulse Rate 65 62 62 Respiratory Rate 14 18 18 Blood Pressure 169/73 H 165/80 H Pulse Oximetry 97 98 98 Oxygen Delivery Room Air 10/13/24 12:00 Temperature 98.4 F Pulse Rate 64 Respiratory Rate 18 Blood Pressure 141/81 H Pulse Oximetry 99 Oxygen Delivery Intake/Output Intake/Output: Intake & Output 10/10/24 10/11/24 10/12/24 10/13/24 23:59 23:59 23:59 23:59 Intake Total 3464 1760 890 790 Output Total 400 525 400 450 Balance 3064 1235 490 340 Meds/Results Medications: Active Medications Generic Name Dose Route Start Last Admin Trade Name Freq PRN Reason Stop Dose Admin Acetaminophen 650 mg 10/02/24 16:55 10/12/24 00:01 Acetaminophen 325 Mg Tablet PO 650 mg Q4H PRN Administration Mild Pain (1-3) or Fever Albuterol 2.5 mg 10/12/24 13:19 Albuterol Sulfate Neb 2.5 Mg/3 Ml Inh INHALATION Q4HRT PRN Shortness Of Breath Amoxicillin/Clavulanate Potassium 1 tablet 10/06/24 21:00 10/13/24 08:36 Amoxicillin/Clavulanate K 500-125 Mg Tab PO 10/20/24 21:01 1 tablet Q12HR TAMIKA Administration Aspirin 81 mg 10/03/24 09:00 10/13/24 08:35 Aspirin 81 Mg Enteric Tablet PO 81 mg QAM TAMIKA Administration Atorvastatin Calcium 80 mg 10/03/24 09:00 10/13/24 08:35 Atorvastatin 40 Mg Tablet PO 80 mg DAILY TAMIKA Administration Bumetanide 0.5 mg 10/03/24 09:00 10/08/24 08:32 Bumetanide 0.5 Mg Tablet PO 0.5 mg DAILY TAMIKA Administration Buspirone HCl 10 mg 10/03/24 09:00 10/13/24 08:36 Buspirone Hcl 10 Mg Tablet PO 10 mg BID TAMIKA Administration Calcitriol 0.25 mcg 10/03/24 09:00 10/13/24 08:36 Calcitriol 0.25 Mcg Capsule PO 0.25 mcg MoWeFr@0900 TAMIKA Administration Dextrose 12.5 gm 10/02/24 17:35 Dextrose 50% 25 Gm/50 Ml Syringe IV PUSH PRN PRN Hypoglycemia Protocol Docusate Sodium 100 mg 10/03/24 09:00 10/13/24 08:35 Docusate Sodium 100 Mg Capsule PO 100 mg BID [facility] Administration Ezetimibe 10 mg 10/03/24 09:00 10/13/24 08:36 Ezetimibe 10 Mg Tablet PO 10 mg DAILY TAMIKA Administration Empagliflozin 25 mg 10/03/24 09:00 10/13/24 08:35 Empagliflozin 25 Mg Tablet BY MOUTH 25 mg QAM [facility] Administration Enoxaparin Sodium 30 mg 10/09/24 09:00 10/13/24 08:37 Enoxaparin 30 Mg/0.3 Ml Syringe SUB-Q 30 mg DAILY [facility] Administration Fluticasone Propionate 1 spray 10/11/24 21:00 10/13/24 08:37 Fluticasone Propionate 0.05% Na Spr 16 Gm Btl (*Bkc) NASAL 1 spray Q12HR TAMIKA Administration Glucagon 1 mg 10/02/24 17:35 Glucagon For Inj 1 Mg Vial IM PRN PRN Hypoglycemia Protocol Glucose 15 gm 10/02/24 17:35 Glucose Oral Gel 15 Gm Of Glucse In 37.5 Gm Tube PO PRN PRN Hypoglycemia Protocol Dextrose 1,000 mls @ 100 mls/hr 10/02/24 17:35 Dextrose 5% 1,000 Ml IVPB PRN PRN Hypoglycemia Protocol Insulin Aspart 3 - 6 units 10/03/24 08:00 10/13/24 11:49 Insulin Aspart (*Bkc) 100 Units/Ml SUB-Q Not Given TIDWM [facility] Protocol Insulin Aspart 1 - 3 units 10/02/24 21:00 10/12/24 20:43 Insulin Aspart (*Bkc) 100 Units/Ml SUB-Q Not Given HS [facility] Protocol Insulin Human Regular 25 units 10/03/24 13:00 10/12/24 12:48 Insulin Human Regular (*Bkc) 100 Units/Ml SUB-Q Not Given DAILY@1200 [facility] Insulin Human Regular 55 units 10/05/24 08:00 10/13/24 08:42 Insulin Human Regular (*Bkc) 100 Units/Ml SUB-Q 55 units DAILY@0800 [facility] Administration Isosorbide Mononitrate 90 mg 10/03/24 09:00 10/13/24 08:36 Isosorbide Mononitrate 30 Mg Tab.Er.24h PO 90 mg DAILY [facility] Administration Miscellaneous Information 1 each 10/11/24 00:01 Hydrocodone/Tylenol Needs To Be Renewed Or It Will Automatically Discontinue. XX 11/10/24 00:00 CLARIFY TAMIKA Ondansetron HCl 4 mg 10/02/24 17:35 Ondansetron Inj 4 Mg/2 Ml Vial IV PUSH Q6H PRN Nausea And Vomiting Oxycodone HCl 5 mg 10/06/24 14:41 Oxycodone Hcl (*Crx) 5 Mg Tab Ir PO ONCE PRN Pain Pantoprazole Sodium 40 mg 10/03/24 21:00 10/12/24 20:42 Pantoprazole 40 Mg Tablet PO 40 mg QHS TAMIKA Administration Polyethylene Glycol 17 gm 10/05/24 14:48 Polyethylene Glycol 3350 17 Gm Powd.Pack PO QAM PRN Constipation Propranolol HCl 80 mg 10/03/24 09:00 10/13/24 08:36 Propranolol Hcl 40 Mg Tablet PO 80 mg TID TAMIKA Administration Sertraline HCl 50 mg 10/02/24 23:10 10/13/24 08:35 Sertraline Hcl 50 Mg Tablet BY MOUTH 50 mg DAILY TAMIKA Administration Sodium Bicarbonate 1,300 mg 10/11/24 18:20 10/13/24 08:36 Sodium Bicarbonate Tab 650 Mg Tablet PO 10/13/24 17:01 1,300 mg BID TAMIKA Administration Sodium Chloride 1 spray 10/11/24 16:22 10/12/24 00:02 Saline 0.65% Fabiano Soln 44 Ml Btl NASAL 1 spray Q6HR PRN Administration Congestion Radiology Results: ITS Impressions Foot X-Ray 10/02/24 14:32 IMPRESSION: 1. Nondisplaced fracture of lateral aspect of head of first proximal phalanx. 2. Nondisplaced stellate fracture of tuft of first distal phalanx. 3. Mild polyarticular osteoarthritis. Renal Ultrasound 10/07/24 11:52 IMPRESSION: 1. 3.4 cm mixed solid and cystic lesion at the upper pole the right kidney with 2 cm solid nodular component which is concerning for renal cell carcinoma. Recommend urologic consultation and further evaluation with pre and postcontrast MRI or CT. 2. No hydronephrosis in either kidney. 3. Trabeculated bladder wall which can be seen with neurogenic bladder or chronic outlet obstruction such as in the setting of prostatomegaly. Chest X-Ray 10/12/24 10:05 IMPRESSION: 1. No acute cardiopulmonary disease. Labs Labs: Laboratory Results - last 24 hr 10/12/24 10/12/24 10/13/24 16:36 19:39 06:50 WBC RBC Hgb Hct MCV MCH MCHC RDW Plt Count MPV Immature Gran % (Auto) Neut % (Auto) Lymph % (Auto) [place] % (Auto) Eos % (Auto) Baso % (Auto) Lymph # (Auto) [place] # (Auto) Eos # (Auto) Baso # (Auto) Abs Immat Gran (auto) Absolute Neuts (auto) Absolute Nucleated RBC Nucleated RBC % Sodium Potassium Chloride Carbon Dioxide Anion Gap BUN Creatinine Estim Creat Clear Calc Estimated GFR Glucose POC Capillary Glucose 108 H 81 Calcium Phosphorus Magnesium Total Bilirubin AST ALT Alkaline Phosphatase Total Protein Albumin Urine Color Yellow Urine Appearance Turbid H Urine pH 5.0 Ur Specific [place] 1.021 Urine Protein 4+ H Urine Glucose (UA) 2+ H Urine Ketones Negative Ur Blood (Man) 3+ H Urine Nitrate Negative Urine Bilirubin Negative Urine Urobilinogen 0.2 Add Ur Microanalysis Reviewed Leukocyte Esterase Rfl 2+ H Urine RBC 11-20 H Urine WBC 51-100 H Ur Squamous Epith Cells Occasional Urine Bacteria None seen Urine Casts 3-5 10/13/24 10/13/24 10/13/24 08:03 08:08 11:45 WBC 8.2 RBC 3.54 L Hgb 10.8 L Hct 33.5 L MCV 94.6 MCH 30.5 MCHC 32.2 RDW 14.2 Plt Count 276 MPV 10.4 Immature Gran % (Auto) 0.5 Neut % (Auto) 67.5 Lymph % (Auto) 22.3 [place] % (Auto) 9.1 H Eos % (Auto) 0.4 Baso % (Auto) 0.2 Lymph # (Auto) 1.82 [place] # (Auto) 0.7 H Eos # (Auto) 0.0 Baso # (Auto) 0.0 Abs Immat Gran (auto) 0.04 H Absolute Neuts (auto) 5.5 Absolute Nucleated RBC 0.000 Nucleated RBC % 0.0 Sodium 133 L Potassium 4.9 Chloride 105 Carbon Dioxide 14 L Anion Gap 14 H BUN 90 H Creatinine 5.49 H Estim Creat Clear Calc 17 Estimated GFR 10 L Glucose 149 H POC Capillary Glucose 155 H 127 H Calcium 7.2 L Phosphorus 8.0 H Magnesium 2.4 H Total Bilirubin 0.7 AST 76 H ALT 66 H Alkaline Phosphatase 224 H Total Protein 6.0 L Albumin 2.6 L Urine Color Urine Appearance Urine pH Ur Specific [place] Urine Protein Urine Glucose (UA) Urine Ketones Ur Blood (Man) Urine Nitrate Urine Bilirubin Urine Urobilinogen Add Ur Microanalysis Leukocyte Esterase Rfl Urine RBC Urine WBC Ur Squamous Epith Cells Urine Bacteria Urine Casts Quality VTE Prophylaxis VTE prophylaxis: pharmacologic ordered
[2024-10-13 16:00] VITALS: BP 139/80; PULSE 59; RESP 16; TEMP 36.1; O2SAT 99
[2024-10-13 17:35] LABS: Glucose Point of Care 52 mg/dl (65-105)
[2024-10-13] MEDS: GLUCOSE ORAL GEL 15 GM OF GLUCSE IN 37.5 GM TUBE PO (17:38)
[2024-10-13 18:39] LABS: Glucose Point of Care 97 mg/dl (65-105)
[2024-10-13 18:39] LABS: Glucose Point of Care 65 mg/dl (65-105)
[2024-10-13 20:00] VITALS: BP 149/73; PULSE 58; PULSE 59; RESP 16; RESP 18; TEMP 36.7; O2SAT 98; O2SAT 99
[2024-10-13] MEDS: PANTOPRAZOLE 40 MG TABLET PO (21:30)
[2024-10-13 21:48] LABS: Glucose Point of Care 180 mg/dl (65-105)
[2024-10-13] MEDS: SODIUM CHLORIDE 0.9% IV 1,000 ML 75 ML IV CONT (22:41)
[2024-10-14] VITALS (9 sets, daily range): BP systolic 131–144; BP diastolic 68–75; PULSE 58–81; RESP 18–20; TEMP 36.4–36.8; O2SAT 94–100
[2024-10-14 06:30] LABS: Basophils Percent Auto 0.4 % (0.2-1.2); Eosinophils Absolute Auto 0.1 K/mm3 (0-0.3); Eosinophils Percent Auto 0.8 % (0-4.4); Hematocrit 32.2 % (42.0-52.0); Hemoglobin 10.4 g/dL (14.0-18.0); Immature Granulocyte Absolute 0.04 K/mm3 (0.00-0.031); Immature Granulocyte Percent A 0.6 % (0-0.5); Lymphocytes Absolute Auto 2.91 K/mm3 (0.9-3.2); Lymphocytes Percent Auto 40.6 % (18.3-44.2); Mean Corpuscular HGB Conc 32.3 g/dl (32-36); Mean Corpuscular Hemoglobin 30.3 pg (26-34); Mean Corpuscular Volume 93.9 fl (80-100); Mean Platelet Volume 10.8 fl (7.4-10.4); Monocytes Absolute Auto 0.6 K/mm3 (0.1-0.6); Monocytes Percent Auto 8.2 % (2.6-8.5); Neutrophils Absolute Auto 3.5 K/mm3 (1.3-6.7); Neutrophils Percent Auto 49.4 % (45.5-73.1); Platelet Count Result 260 k/mm3 (150-375); Red Blood Count 3.43 M/mm3 (4.6-6.20); Red Cell Distribution Width 14.3 % (11.5-14.5); White Blood Count 7.2 K/mm3 (4.5-10.0)
[2024-10-14 06:39] LABS: Alanine Aminotransferase 68 U/L (6-50); Albumin Level 2.7 g/dL (3.5-5.1); Alkaline Phosphatase 215 U/L (38-126); Anion Gap 14 mmol/L (4-12); Aspartate Amino Transferase 79 U/L (17-59); Bilirubin,Total 0.8 mg/dL (0.2-1.3); Blood Urea Nitrogen 91 mg/dL (9-20); Calcium 7.2 mg/dL (8.4-10.2); Carbon Dioxide 13 mmol/L (22-30); Chloride 107 mmol/L (98-107); Estimated CRCL calculation 16 ml/min; Estimated Glomerular Filt Rate 10; Glucose 143 mg/dL (65-110); Phosphorus 8.5 mg/dL (2.5-4.5); Potassium 4.4 mmol/L (3.4-5.0); Sodium 134 mmol/L (137-145)
[2024-10-14 08:02] LABS: Glucose Point of Care 164 mg/dl (65-105)
[2024-10-14] MEDS: INSULIN HUMAN REGULAR (*BKC) 100 UNITS/ML 55 UNITS SUB-Q (08:27)
[2024-10-14] MEDS: ENOXAPARIN 30 MG/0.3 ML SYRINGE SUB-Q (08:29)
[2024-10-14] MEDS: ISOSORBIDE MONONITRATE 30 MG TAB.ER.24H 90 MG PO (08:30)
[2024-10-14] MEDS: EZETIMIBE 10 MG TABLET PO (08:30)
[2024-10-14] MEDS: PROPRANOLOL HCL 40 MG TABLET 80 MG PO ×3 (08:30→16:40)
[2024-10-14] MEDS: AMOXICILLIN/CLAVULANATE K 500-125 MG TAB 1 TABLET PO ×2 (08:30→20:47)
[2024-10-14] MEDS: ATORVASTATIN 40 MG TABLET 80 MG PO (08:31)
[2024-10-14] MEDS: SERTRALINE HCL 50 MG TABLET BY MOUTH (08:31)
[2024-10-14] MEDS: DOCUSATE SODIUM 100 MG CAPSULE PO ×2 (08:31→16:40)
[2024-10-14] MEDS: busPIRone HCL 10 MG TABLET PO ×2 (08:31→16:40)
[2024-10-14] MEDS: EMPAGLIFLOZIN 25 MG TABLET BY MOUTH (08:31)
[2024-10-14] MEDS: ASPIRIN 81 MG ENTERIC TABLET PO (08:31)
[2024-10-14] MEDS: FLUTICASONE PROPIONATE 0.05% NA SPR 16 GM BTL (*BKC) 1 SPRAY NASAL ×2 (08:32→20:48)
--- NOTE | 2024-10-14 08:34 | P.PNIM_ITS ---
Progress Note: A&P Assessment and Plan (1) Diabetic foot ulcer: Code(s): E11.621 - Type 2 diabetes mellitus with foot ulcer; L97.509 - Non-pressure chronic ulcer of other part of unspecified foot with unspecified severity Status: Acute Assessment and Plan: patient reports injury to right great toe with worsening symptoms patient has severe diabetes and CAD with poor wound healing initial x-ray did show right great toe was also fractured * CRP elevate no WBC * Surgery consulted if debridement or amputation needed * blood cultures no growth today * wound culture ordered * NPO in case of possible procedure * IV cefepime, vancomycin and Flagyl * Will need close glucose control for any type of wound healing patient is a severely uncontrolled diabetic on high-dose insulin 10/04: * Day 1 post-op * Blood cultures NGTD * inoperative wound culture pending * continue with current ABX therapy will de-escalate with Culture and sensitivity * Plan is surgery 10/06 for amputation due to exposed fractured toe 10/05: * Postop day 2 * normal wbc no fever * blood cultures NGTD * wound culture still pending * surgery tomorrow hold morning Lovenox 10/06 10/06: * Amputation 10/06 * Aerobic culture grew Staphylococcus aureus * De-escalated ABX to doxycycline Augmentin times 14 days. 10/07: * Post-op day 2 * Minimal pain * ABX de-escalated based on sensitivities MSSA * 10/08 post op day 3 no specific complaints awaiting PT evaluation to return home with is what pt wants 10/09 - will continue current Augmentin and wound treatment plan 10/10 - will continue current plan of treatment 10/12/24: * Continue Augmentin as ordered. * Continue dressing changes. 10/13/24: * Stable without any complaints of pain. Normal WBC's. * Continue dressings as ordered and Augmentin. 10/14/24: * Stable. * Continue Augmentin through 10/20/24. * Pt reports no pain. * No lab evidence of acute infection. (2) Fracture of right great toe: Code(s): S92.401A - Displaced unspecified fracture of right great toe, initial encounter for closed fracture Status: Acute Assessment and Plan: * Nondisplaced fracture of lateral aspect of head of first proximal phalanx. * Nondisplaced stellate fracture of tuft of first distal phalanx. * Orthopedics consulted * Pain management * elevate at rest * Great toe was Amputated - wound management doing well. 10/12/24: * See #1 - s/p amputation (3) Chronic kidney disease, stage 3b: Code(s): N18.32 - Chronic kidney disease, stage 3b Status: Acute Assessment and Plan: Acute on chronic renal failure Baseline around mid 2.5 * CR 3.32 POA * Currently on vancomycin pharmacy to dose will need to deescalate cultures * Avoid nephrotoxic drugs. * Monitor antihypertensive drug therapy. * Avoid NSAIDs. * Routine CMP monitoring GFR. * Monitor electrolytes especially potassium. * Antibiotic doses depending on creatinine clearance. * Pharmacy does medications. 10/07: * Cr continues to trend up 3.37 today * de-escalated ABX therapy and had IV fluids with no improvement * Nephrology consulted for further evaluation or recommendation baseline mid 2's * Renal US pending 10/08 creat is 4 nephrology rounding see recommendations 10/09 - creat - 4.30, BUN 84, GFR 14. Nephrology aware and monitoring. --> will give 1 liter of IV fluids today 10/10 - creat - 4.57, BUN 81, GFR 13, Nephrology aware and monitoring --> Nephrology to follow. Stopped Bumex prior, worsening Renal function. creat - 5.11, BUN 84, GFR 11, K- 5.1 - Nephrology following as well. 10/12/24: * Upward trend in Cr/BUN continues with labs showing 5.29/91 today. * Nephrology is following. * Continue to hold Bumex. * Minimize/eliminate renal offending agents. * Continue to trend renal function with daily labs. 10/13/24: * Acute on chronic progression vs. JUAN CARLOS from COVID * Nephrology continues to follow. * Holding Bumex. * Continue to trend. * NM Renal scan ordered for today. 10/14/24: * NM renal scan shows normal symmetric kidney function and delayed uptake and clearance of activity from within the kidneys, consistent with decreased kidney function. * Interval increase in creatinine to 5.71 today. (3.32 on admission) * Nephrology is following. Etiology uncertain but considers COVID, DM, HTN, Vascular disease and age. * Continue to hold diuretics, but pt is appearing to have some extra fluid on board. * Continue to trend labs. * Minimize renal offending agents. * Low Potassium diet * IVF challenge given again at request of Nephrology. (4) Type 2 diabetes mellitus with diabetic polyneuropathy: Code(s): E11.42 - Type 2 diabetes mellitus with diabetic polyneuropathy Status: Acute Assessment and Plan: * Diabetic diet * Holding semaglutide * Hemoglobin A1c pending * Accuchecks ACHS * SSI moderate dosing added * Patient is hard to control diabetic on several diabetic medication, and high- dose insulin started conversion to U 100 while hospitalized and adjust as need currently 65u/25u/10u * Continue Jardiance and Zetia 10/12/24: * Continue current glycemic regimen. * Monitor and adjust as necessary. 10/13/24: * Fasting glucose this AM is 149. * No further adjustments to insulin dosing. * Continue current regimen for management. 10/14/24: * Current regimen is managing well. * A1C is 7.9. * Continue Diabetic/Low potassium diet. (5) Diastolic dysfunction: Onset Date: 03/2022 Code(s): I51.89 - Other ill-defined heart diseases Status: Chronic Assessment and Plan: * patient does not appear to be in exacerbation * stopped Bumex 10/12/24: * Continues to appear euvolemic. 10/13/24: * Pt with mild edema to the BUE and the BLE, no pitting. Will need continued close monitoring. Continue to hold Bumex. (6) Presence of aortocoronary bypass graft: Onset Date: 10/2017 Code(s): Z95.1 - Presence of aortocoronary bypass graft Status: Acute Assessment and Plan: * Continue Inderal, aspirin, Lipitor, an imdur, Atorvastatin 10/13/24: * Continue current meds. (7) COVID: Code(s): U07.1 - COVID-19 Status: Acute Assessment and Plan: 10/12/24: * Supportive care. * No steroids or other antivirals ordered in setting of no supplemental oxygen required. * PRN nebs ordered. 10/13/24: * Continue supportive care. (8) Renal mass, right: Code(s): N28.89 - Other specified disorders of kidney and ureter Status: Acute Assessment and Plan: 10/12/24: * A 3.4 cm mixed solid and cystic lesion at the upper pole the right kidney with 2 cm solid nodular component which is concerning for renal cell carcinoma. Recommend urologic consultation and further evaluation with pre and postcontrast MRI or CT. * Unable to do further imaging at this time due to renal function. * Urology and Nephrology following. 10/13/24: * Discussed with Dr. Jacobsen whether or not it is appropriate to inquire about doing a biopsy of the renal mass and whether or not that is contributing to his renal function, but he does not believe that it is contributing. [facility] notes that if there is concern for possible neoplastic disease, typically the mass is just resected and not biopsied. (9) Transaminitis: Code(s): R74.01 - Elevation of levels of liver transaminase levels Status: Acute Assessment and Plan: 10/14/24: * New during this admission. * Most likely etiology is having COVID. * Continue to trend. * Pt asympotmatic. If any development of pain, N/V then would consider RUQ US/CT abd pelvis. Plan Time Spent With Patient Time with patient: 25 - 35 minutes Subjective Date/time seen: 10/14/24 08:34 Interval history: This very pleasant male pt is examined at the bedside today. He reports that he is able to expectorate more phlegm today. He denies any worsening of Dyspnea and remainder of VS stable. He has increase again in his renal function w/Cr today of 5.71. A IVF trial was ordered by Nephrology, Dr. Jacobsen, who continues to follow pt's renal function with medicine. Pt reports that he is voiding without any difficulty, but states he is urinating less than usual. Pt has no other acute or new complaints otherwise. He notes he has been up and ambulatory in the room. Review of Systems Review of Systems: All systems reviewed & are unremarkable except as noted in HPI and below Exam Const: General: comfortable and no acute distress HENMT: Mouth: Yes moist mucous membranes Eyes: General: appearance normal, both eyes and all related structures Neck: Neck: supple and no JVD Resp: Effort & Inspection: normal respiratory effort Auscultation: clear to auscultation bilaterally Cardio: Rate: regular rate Rhythm: regular rhythm Heart sounds: no gallops, no murmurs and no rubs GI: Inspection: non-distended GI Palp: Yes Soft to palpation and No Tenderness to palpation present (GI) Auscultation: normal bowel sounds Skin: General skin exam: normal color, no rashes or lesions noted and no erythema Wounds: no wounds Neuro: General: gait normal Speech: normal speech Motor exam (neuro): 5/5 motor strength present throughout and Normal motor muscle tone present throughout Sensory Exam: normal sensation Extrem: General: edema (BUE and BLE edema, not pitting.) Other: FROM actively of extremities. Right foot is s/p Right great toe amputation. Psych: Mental Status: mental status grossly normal Objective Data Vital Signs Vital Signs: Vital Signs - 24 hr 10/13/24 12:00 10/13/24 16:00 10/13/24 20:00 Temperature 98.4 F 97.0 F L Pulse Rate 64 59 L 59 L Respiratory Rate 18 16 16 Blood Pressure 141/81 H 139/80 Pulse Oximetry 99 99 99 Oxygen Delivery Room Air 10/13/24 20:00 10/14/24 00:00 10/14/24 04:00 Temperature 98.1 F 97.6 F 97.8 F Pulse Rate 58 L 60 58 L Respiratory Rate 18 20 18 Blood Pressure 149/73 H 134/71 144/75 H Pulse Oximetry 98 100 99 Oxygen Delivery 10/14/24 08:30 Temperature Pulse Rate 60 Respiratory Rate Blood Pressure Pulse Oximetry Oxygen Delivery Intake/Output Intake/Output: Intake & Output 10/11/24 10/12/24 10/13/24 10/14/24 23:59 23:59 23:59 23:59 Intake Total 5925 806 8825 300 Output Total 525 400 450 Balance 1235 490 920 300 Meds/Results Medications: Active Medications Generic Name Dose Route Start Last Admin Trade Name Freq PRN Reason Stop Dose Admin Acetaminophen 650 mg 10/02/24 16:55 10/12/24 00:01 Acetaminophen 325 Mg Tablet PO 650 mg Q4H PRN Administration Mild Pain (1-3) or Fever Albuterol 2.5 mg 10/12/24 13:19 Albuterol Sulfate Neb 2.5 Mg/3 Ml Inh INHALATION Q4HRT PRN Shortness Of Breath Amoxicillin/Clavulanate Potassium 1 tablet 10/06/24 21:00 10/14/24 08:30 Amoxicillin/Clavulanate K 500-125 Mg Tab PO 10/20/24 21:01 1 tablet Q12HR TAMIKA Administration Aspirin 81 mg 10/03/24 09:00 10/14/24 08:31 Aspirin 81 Mg Enteric Tablet PO 81 mg QAM TAMIKA Administration Atorvastatin Calcium 80 mg 10/03/24 09:00 10/14/24 08:31 Atorvastatin 40 Mg Tablet PO 80 mg DAILY TAMIKA Administration Bumetanide 0.5 mg 10/03/24 09:00 10/08/24 08:32 Bumetanide 0.5 Mg Tablet PO 0.5 mg DAILY TAMIKA Administration Buspirone HCl 10 mg 10/03/24 09:00 10/14/24 08:31 Buspirone Hcl 10 Mg Tablet PO 10 mg BID TAMIKA Administration Calcitriol 0.25 mcg 10/03/24 09:00 10/13/24 08:36 Calcitriol 0.25 Mcg Capsule PO 0.25 mcg MoWeFr@0900 TAMIKA Administration Dextrose 12.5 gm 10/02/24 17:35 Dextrose 50% 25 Gm/50 Ml Syringe IV PUSH PRN PRN Hypoglycemia Protocol Docusate Sodium 100 mg 10/03/24 09:00 10/14/24 08:31 Docusate Sodium 100 Mg Capsule PO 100 mg BID TAMIKA Administration Ezetimibe 10 mg 10/03/24 09:00 10/14/24 08:30 Ezetimibe 10 Mg Tablet PO 10 mg DAILY TAMIKA Administration Empagliflozin 25 mg 10/03/24 09:00 10/14/24 08:31 Empagliflozin 25 Mg Tablet BY MOUTH 25 mg QAM TAMIKA Administration Enoxaparin Sodium 30 mg 10/09/24 09:00 10/14/24 08:29 Enoxaparin 30 Mg/0.3 Ml Syringe SUB-Q 30 mg DAILY TAMIKA Administration Fluticasone Propionate 1 spray 10/11/24 21:00 10/14/24 08:32 Fluticasone Propionate 0.05% Na Spr 16 Gm Btl (*Bkc) NASAL 1 spray Q12HR TAMIKA Administration Glucagon 1 mg 10/02/24 17:35 Glucagon For Inj 1 Mg Vial IM PRN PRN Hypoglycemia Protocol Glucose 15 gm 10/02/24 17:35 10/13/24 17:38 Glucose Oral Gel 15 Gm Of Glucse In 37.5 Gm Tube PO 15 gm PRN PRN Administration Hypoglycemia Protocol Dextrose 1,000 mls @ 100 mls/hr 10/02/24 17:35 Dextrose 5% 1,000 Ml IVPB PRN PRN Hypoglycemia Protocol Sodium Chloride 1,000 mls @ 75 mls/hr 10/13/24 21:55 10/13/24 22:41 Normal Saline Iv IV CONT 10/14/24 11:14 75 mls/hr .[id number] TAMIKA Administration Insulin Aspart 3 - 6 units 10/03/24 08:00 10/14/24 08:07 Insulin Aspart (*Bkc) 100 Units/Ml SUB-Q Not Given TIDWM [facility] Protocol Insulin Aspart 1 - 3 units 10/02/24 21:00 10/13/24 21:30 Insulin Aspart (*Bkc) 100 Units/Ml SUB-Q Not Given HS [facility] Protocol Insulin Human Regular 25 units 10/03/24 13:00 10/13/24 16:46 Insulin Human Regular (*Bkc) 100 Units/Ml SUB-Q Not Given DAILY@1200 [facility] Insulin Human Regular 55 units 10/05/24 08:00 10/14/24 08:27 Insulin Human Regular (*Bkc) 100 Units/Ml SUB-Q 55 units DAILY@0800 [facility] Administration Isosorbide Mononitrate 90 mg 10/03/24 09:00 10/14/24 08:30 Isosorbide Mononitrate 30 Mg Tab.Er.24h PO 90 mg DAILY TAMIKA Administration Loperamide HCl 2 mg 10/13/24 13:26 Loperamide Hcl 2 Mg Capsule PO PRN PRN Diarrhea Ondansetron HCl 4 mg 10/02/24 17:35 Ondansetron Inj 4 Mg/2 Ml Vial IV PUSH Q6H PRN Nausea And Vomiting Oxycodone HCl 5 mg 10/06/24 14:41 Oxycodone Hcl (*Crx) 5 Mg Tab Ir PO ONCE PRN Pain Pantoprazole Sodium 40 mg 10/03/24 21:00 10/13/24 21:30 Pantoprazole 40 Mg Tablet PO 40 mg QHS TAMIKA Administration Polyethylene Glycol 17 gm 10/05/24 14:48 Polyethylene Glycol 3350 17 Gm Powd.Pack PO QAM PRN Constipation Propranolol HCl 80 mg 10/03/24 09:00 10/14/24 08:30 Propranolol Hcl 40 Mg Tablet PO 80 mg TID TAMIKA Administration Sertraline HCl 50 mg 10/02/24 23:10 10/14/24 08:31 Sertraline Hcl 50 Mg Tablet BY MOUTH 50 mg DAILY TAMIKA Administration Sodium Chloride 1 spray 10/11/24 16:22 10/12/24 00:02 Saline 0.65% Fabiano Soln 44 Ml Btl NASAL 1 spray Q6HR PRN Administration Congestion Radiology Results: ITS Impressions Foot X-Ray 10/02/24 14:32 IMPRESSION: 1. Nondisplaced fracture of lateral aspect of head of first proximal phalanx. 2. Nondisplaced stellate fracture of tuft of first distal phalanx. 3. Mild polyarticular osteoarthritis. Renal Ultrasound 10/07/24 11:52 IMPRESSION: 1. 3.4 cm mixed solid and cystic lesion at the upper pole the right kidney with 2 cm solid nodular component which is concerning for renal cell carcinoma. Recommend urologic consultation and further evaluation with pre and postcontrast MRI or CT. 2. No hydronephrosis in either kidney. 3. Trabeculated bladder wall which can be seen with neurogenic bladder or chronic outlet obstruction such as in the setting of prostatomegaly. Renal Scan Nuclear Medicine 10/13/24 14:38 IMPRESSION: 1. Symmetric kidney function. 2. Delayed uptake and clearance of activity from the kidneys, consistent with decreased kidney function. Chest X-Ray 10/13/24 15:10 IMPRESSION: No acute cardiopulmonary process. Labs Labs: Laboratory Results - last 24 hr 10/13/24 10/13/24 10/13/24 08:08 11:45 17:32 WBC 8.2 RBC 3.54 L Hgb 10.8 L Hct 33.5 L MCV 94.6 MCH 30.5 MCHC 32.2 RDW 14.2 Plt Count 276 MPV 10.4 Immature Gran % (Auto) 0.5 Neut % (Auto) 67.5 Lymph % (Auto) 22.3 Glenn % (Auto) 9.1 H Eos % (Auto) 0.4 Baso % (Auto) 0.2 Lymph # (Auto) 1.82 Glenn # (Auto) 0.7 H Eos # (Auto) 0.0 Baso # (Auto) 0.0 Abs Immat Gran (auto) 0.04 H Absolute Neuts (auto) 5.5 Absolute Nucleated RBC 0.000 Nucleated RBC % 0.0 Sodium 133 L Potassium 4.9 Chloride 105 Carbon Dioxide 14 L Anion Gap 14 H BUN 90 H Creatinine 5.49 H Estim Creat Clear Calc 17 Estimated GFR 10 L Glucose 149 H POC Capillary Glucose 127 H 52 L* Calcium 7.2 L Phosphorus 8.0 H Magnesium 2.4 H Total Bilirubin 0.7 AST 76 H ALT 66 H Alkaline Phosphatase 224 H Total Protein 6.0 L Albumin 2.6 L 10/13/24 10/13/24 10/13/24 17:48 18:17 21:19 WBC RBC Hgb Hct MCV MCH MCHC RDW Plt Count MPV Immature Gran % (Auto) Neut % (Auto) Lymph % (Auto) Glenn % (Auto) Eos % (Auto) Baso % (Auto) Lymph # (Auto) Glenn # (Auto) Eos # (Auto) Baso # (Auto) Abs Immat Gran (auto) Absolute Neuts (auto) Absolute Nucleated RBC Nucleated RBC % Sodium Potassium Chloride Carbon Dioxide Anion Gap BUN Creatinine Estim Creat Clear Calc Estimated GFR Glucose POC Capillary Glucose 65 97 180 H Calcium Phosphorus Magnesium Total Bilirubin AST ALT Alkaline Phosphatase Total Protein Albumin 10/14/24 10/14/24 05:58 07:48 WBC 7.2 RBC 3.43 L Hgb 10.4 L Hct 32.2 L MCV 93.9 MCH 30.3 MCHC 32.3 RDW 14.3 Plt Count 260 MPV 10.8 H Immature Gran % (Auto) 0.6 H Neut % (Auto) 49.4 Lymph % (Auto) 40.6 Glenn % (Auto) 8.2 Eos % (Auto) 0.8 Baso % (Auto) 0.4 Lymph # (Auto) 2.91 Glenn # (Auto) 0.6 Eos # (Auto) 0.1 Baso # (Auto) 0.0 Abs Immat Gran (auto) 0.04 H Absolute Neuts (auto) 3.5 Absolute Nucleated RBC 0.000 Nucleated RBC % 0.0 Sodium 134 L Potassium 4.4 Chloride 107 Carbon Dioxide 13 L Anion Gap 14 H BUN 91 H Creatinine 5.71 H Estim Creat Clear Calc 16 Estimated GFR 10 L Glucose 143 H POC Capillary Glucose 164 H Calcium 7.2 L Phosphorus 8.5 H Magnesium Total Bilirubin 0.8 AST 79 H ALT 68 H Alkaline Phosphatase 215 H Total Protein 6.0 L Albumin 2.7 L Quality VTE Prophylaxis VTE prophylaxis: mechanical ordered and pharmacologic ordered
--- NOTE | 2024-10-14 11:10 | P.PNNP_ITS ---
Progress Note: A&P Assessment and Plan (1) JUAN CARLOS (acute kidney injury): Code(s): N17.9 - Acute kidney failure, unspecified Status: Acute Assessment and Plan: * as noted on admission - creatinine of 3.32mg/dl * came down to 2.9mg/dl transiently * presumed etiology likely secondary to acute infection - right great toe diabetic foot ulcer + cellulitis * however, cannot discount an element of CKD progression * evaluation to date noted: * renal u/s without hydro but concerning for renal mass * urine electrolytes pre-renal * urine eosinophils noted * UA (from 10/07) suggestive of infection -- culture Annie (but low CFU) * proteinuria noted * CPK normal * renal scan suggestive of ATN * holding diuretic therapy for now * on sodium bicarbonate for acidosis * follow repeat labs and UOP (2) Chronic kidney disease, stage IV (severe): Code(s): N18.4 - Chronic kidney disease, stage 4 (severe) Status: Chronic Assessment and Plan: * baseline creatinine has been running 2.3 - 2.7mg/dl in the last few years * however, last creatinine up to 2.86mg/dl in July 2024 * due to diabetes, hypertension, vascular disease, (CAD + CHF + hyperlipidemia + PVD), and age * follows with Dr. Caprice Gusman for managment of his chronic kidney disease (3) Diabetic foot ulcer: Code(s): E11.621 - Type 2 diabetes mellitus with foot ulcer; L97.509 - Non-pressure chronic ulcer of other part of unspecified foot with unspecified severity Status: Acute Assessment and Plan: * as noted on admission * poor wound healing noted since injury * X-ray with right great toe fracture * complicated by cellulitis of right great toe * s/p right great toe amputation by Surgery (on 10/06) * culture data noted * blood cultures negative * would culture with Staph aureus * on antibiotics * local wound care (4) COVID: Code(s): U07.1 - COVID-19 Status: Acute Assessment and Plan: * as noted by recent testing * no evidence of hypoxia * possibly playing a role with #1(?) * continue supportive care (5) Diastolic dysfunction: Onset Date: 03/2022 Code(s): I51.89 - Other ill-defined heart diseases Status: Chronic Assessment and Plan: * appears compensated at this time * home diuretic therapy on hold due to #1 * follow volume/respiratory status (6) Anemia: Code(s): D64.9 - Anemia, unspecified Status: Chronic Assessment and Plan: * presumably related to CKD from some contributions from JUAN CARLOS, acute infection, and recent operative procedure * follow trend of H/H * no need for TAMIKO at this time (7) Urinary tract infection: Code(s): N39.0 - Urinary tract infection, site not specified Status: Acute Assessment and Plan: * recent UA (10/07) suggestive * urine culture x 2 with low CFU Annie (8) Hypertension: Code(s): I10 - Essential (primary) hypertension Status: Chronic Assessment and Plan: * reasonable control at this time * follow trend of hemodynamics (9) Renal mass, right: Code(s): N28.89 - Other specified disorders of kidney and ureter Status: Acute Assessment and Plan: * as noted on renal ultrasound * Urology recommendations noted (10) Type 2 diabetes mellitus with diabetic polyneuropathy: Code(s): E11.42 - Type 2 diabetes mellitus with diabetic polyneuropathy Status: Acute Assessment and Plan: * follow accu-checks * brittle control noted - last HgbA1c noted * glycemic control per hospitalist Will continue to follow. L Subjective Date/time seen: 10/14/24 11:10 Interval history: Follow-up for acute kidney injury/acute renal failure on chronic kidney disease. No apparent distress voiced at the time of my visit; renal function/creatinine continues to decline despite on conservative therapy/treatments to date; fluctuating appetite noted. Exam 2 Narrative: General: elderly WD/WN male in NAD Heart: normal S1 and S2; no rub Lungs: clear to auscultation Abdomen: soft, nontender, nondistended, positive bowel sounds Extremities: no cyanosis or clubbing; trace edema Skin: dressings over right foot Objective Data Vital Signs Vital Signs: Vital Signs Temp Pulse Resp BP Pulse Ox O2 Del Method 10/14/24 11:00 97.6 F 74 18 131/74 97 10/14/24 08:30 60 10/14/24 08:00 60 97 Room Air 10/14/24 08:00 97.8 F 68 18 137/72 94 10/14/24 04:00 97.8 F 58 L 18 144/75 H 99 10/14/24 00:00 97.6 F 60 20 134/71 100 10/13/24 20:00 98.1 F 58 L 18 149/73 H 98 10/13/24 20:00 59 L 16 99 Room Air Intake/Output Intake/Output: Intake & Output 10/11/24 10/12/24 10/13/24 10/14/24 23:59 23:59 23:59 23:59 Intake Total 6283 240 6037 777 Output Total 525 400 450 100 Balance 1235 490 920 677 Meds/Results Medications: Active Medications Generic Name Dose Route Start Last Admin Trade Name Freq PRN Reason Stop Dose Admin Acetaminophen 650 mg 10/02/24 16:55 10/12/24 00:01 Acetaminophen 325 Mg Tablet PO 650 mg Q4H PRN Administration Mild Pain (1-3) or Fever Albuterol 2.5 mg 10/12/24 13:19 Albuterol Sulfate Neb 2.5 Mg/3 Ml Inh INHALATION Q4HRT PRN Shortness Of Breath Amoxicillin/Clavulanate Potassium 1 tablet 10/06/24 21:00 10/14/24 08:30 Amoxicillin/Clavulanate K 500-125 Mg Tab PO 10/20/24 21:01 1 tablet Q12HR TAMIKA Administration Aspirin 81 mg 10/03/24 09:00 10/14/24 08:31 Aspirin 81 Mg Enteric Tablet PO 81 mg QAM TAMIKA Administration Atorvastatin Calcium 80 mg 10/03/24 09:00 10/14/24 08:31 Atorvastatin 40 Mg Tablet PO 80 mg DAILY TAMIKA Administration Bumetanide 0.5 mg 10/03/24 09:00 10/08/24 08:32 Bumetanide 0.5 Mg Tablet PO 0.5 mg DAILY TAMIKA Administration Buspirone HCl 10 mg 10/03/24 09:00 10/14/24 16:40 Buspirone Hcl 10 Mg Tablet PO 10 mg BID TAMIKA Administration Calcitriol 0.25 mcg 10/03/24 09:00 10/13/24 08:36 Calcitriol 0.25 Mcg Capsule PO 0.25 mcg MoWeFr@0900 T[facility]A Administration Dextrose 12.5 gm 10/02/24 17:35 Dextrose 50% 25 Gm/50 Ml Syringe IV PUSH PRN PRN Hypoglycemia Protocol Docusate Sodium 100 mg 10/03/24 09:00 10/14/24 16:40 Docusate Sodium 100 Mg Capsule PO 100 mg BID TAMIKA Administration Ezetimibe 10 mg 10/03/24 09:00 10/14/24 08:30 Ezetimibe 10 Mg Tablet PO 10 mg DAILY TAMIKA Administration Empagliflozin 25 mg 10/03/24 09:00 10/14/24 08:31 Empagliflozin 25 Mg Tablet BY MOUTH 25 mg QAM TAMIKA Administration Fluticasone Propionate 1 spray 10/11/24 21:00 10/14/24 08:32 Fluticasone Propionate 0.05% Na Spr 16 Gm Btl (*Bkc) NASAL 1 spray Q12HR TAMIKA Administration Glucagon 1 mg 10/02/24 17:35 Glucagon For Inj 1 Mg Vial IM PRN PRN Hypoglycemia Protocol Glucose 15 gm 10/02/24 17:35 10/13/24 17:38 Glucose Oral Gel 15 Gm Of Glucse In 37.5 Gm Tube PO 15 gm PRN PRN Administration Hypoglycemia Protocol Heparin Sodium (Porcine) 5,000 units 10/14/24 21:00 Heparin Sodium 5,000 Units/Ml Vial SUB-Q Q12HR [facility] Dextrose 1,000 mls @ 100 mls/hr 10/02/24 17:35 Dextrose 5% 1,000 Ml IVPB PRN PRN Hypoglycemia Protocol Insulin Aspart 3 - 6 units 10/03/24 08:00 10/14/24 16:34 Insulin Aspart (*Bkc) 100 Units/Ml SUB-Q Not Given TIDWM [facility] Protocol Insulin Aspart 1 - 3 units 10/02/24 21:00 10/13/24 21:30 Insulin Aspart (*Bkc) 100 Units/Ml SUB-Q Not Given HS [facility] Protocol Insulin Human Regular 25 units 10/03/24 13:00 10/14/24 12:08 Insulin Human Regular (*Bkc) 100 Units/Ml SUB-Q 25 units DAILY@1200 [facility] Administration Insulin Human Regular 55 units 10/05/24 08:00 10/14/24 08:27 Insulin Human Regular (*Bkc) 100 Units/Ml SUB-Q 55 units DAILY@0800 [facility] Administration Isosorbide Mononitrate 90 mg 10/03/24 09:00 10/14/24 08:30 Isosorbide Mononitrate 30 Mg Tab.Er.24h PO 90 mg DAILY [facility] Administration Loperamide HCl 2 mg 10/13/24 13:26 Loperamide Hcl 2 Mg Capsule PO PRN PRN Diarrhea Ondansetron HCl 4 mg 10/02/24 17:35 Ondansetron Inj 4 Mg/2 Ml Vial IV PUSH Q6H PRN Nausea And Vomiting Oxycodone HCl 5 mg 10/06/24 14:41 Oxycodone Hcl (*Crx) 5 Mg Tab Ir PO ONCE PRN Pain Pantoprazole Sodium 40 mg 10/03/24 21:00 10/13/24 21:30 Pantoprazole 40 Mg Tablet PO 40 mg QHS TAMIKA Administration Polyethylene Glycol 17 gm 10/05/24 14:48 Polyethylene Glycol 3350 17 Gm Powd.Pack PO QAM PRN Constipation Propranolol HCl 80 mg 10/03/24 09:00 10/14/24 16:40 Propranolol Hcl 40 Mg Tablet PO 80 mg TID TAMIKA Administration Sertraline HCl 50 mg 10/02/24 23:10 10/14/24 08:31 Sertraline Hcl 50 Mg Tablet BY MOUTH 50 mg DAILY TAMIKA Administration Sodium Chloride 1 spray 10/11/24 16:22 10/12/24 00:02 Saline 0.65% Fabiano Soln 44 Ml Btl NASAL 1 spray Q6HR PRN Administration Congestion Radiology Results: ITS Impressions Foot X-Ray 10/02/24 14:32 IMPRESSION: 1. Nondisplaced fracture of lateral aspect of head of first proximal phalanx. 2. Nondisplaced stellate fracture of tuft of first distal phalanx. 3. Mild polyarticular osteoarthritis. Renal Ultrasound 10/07/24 11:52 IMPRESSION: 1. 3.4 cm mixed solid and cystic lesion at the upper pole the right kidney with 2 cm solid nodular component which is concerning for renal cell carcinoma. Recommend urologic consultation and further evaluation with pre and postcontrast MRI or CT. 2. No hydronephrosis in either kidney. 3. Trabeculated bladder wall which can be seen with neurogenic bladder or chronic outlet obstruction such as in the setting of prostatomegaly. Renal Scan Nuclear Medicine 10/13/24 14:38 IMPRESSION: 1. Symmetric kidney function. 2. Delayed uptake and clearance of activity from the kidneys, consistent with decreased kidney function. Chest X-Ray 10/13/24 15:10 IMPRESSION: No acute cardiopulmonary process. Labs Labs: Laboratory Tests 10/14/24 05:58 10/14/24 05:58 Calcium 7.2 L Phosphorus 8.5 H Total Bilirubin 0.8 AST 79 H ALT 68 H Alkaline Phosphatase 215 H Total Protein 6.0 L Albumin 2.7 L
[2024-10-14 12:03] LABS: Glucose Point of Care 218 mg/dl (65-105)
[2024-10-14] MEDS: INSULIN HUMAN REGULAR (*BKC) 100 UNITS/ML 25 UNITS SUB-Q (12:08)
[2024-10-14] MEDS: INSULIN ASPART (*BKC) 100 UNITS/ML SUB-Q (12:09)
--- NOTE | 2024-10-14 14:33 | PM.PNGS ---
Progress Note: A&P Assessment and Plan (1) Diabetic foot ulcer: Code(s): E11.621 - Type 2 diabetes mellitus with foot ulcer; L97.509 - Non-pressure chronic ulcer of other part of unspecified foot with unspecified severity Status: Acute Assessment and Plan: Healing well POD#8. Will keep sutures in for at least another 6-8 days. Will continue to follow prn. (2) Cellulitis of great toe, right: Code(s): L03.031 - Cellulitis of right toe Status: Acute (3) Fracture of right great toe: Code(s): S92.401A - Displaced unspecified fracture of right great toe, initial encounter for closed fracture Status: Acute Subjective Subjective Date/Time Seen: 10/14/24 14:33 Post Op day: 8 Interval history: No problems with right foot. Exam Extrem: Other: s/p right 1st toe ray amputation. Minimal serosanguinous output. No erythema. Sutures in place. Objective Data Vital Signs Vital Signs: Vital Signs - 24 hr 10/13/24 16:00 10/13/24 20:00 10/13/24 20:00 Temperature 97.0 F L 98.1 F Pulse Rate 59 L 59 L 58 L Respiratory Rate 16 16 18 Blood Pressure 139/80 149/73 H Pulse Oximetry 99 99 98 Oxygen Delivery Room Air 10/14/24 00:00 10/14/24 04:00 10/14/24 08:00 Temperature 97.6 F 97.8 F 97.8 F Pulse Rate 60 58 L 68 Respiratory Rate 20 18 18 Blood Pressure 134/71 144/75 H 137/72 Pulse Oximetry 100 99 94 Oxygen Delivery 10/14/24 08:00 10/14/24 08:30 10/14/24 12:00 Temperature 97.6 F Pulse Rate 60 60 74 Respiratory Rate 18 Blood Pressure 131/74 Pulse Oximetry 97 97 Oxygen Delivery Room Air 10/14/24 12:08 Temperature Pulse Rate 60 Respiratory Rate Blood Pressure Pulse Oximetry Oxygen Delivery Intake/Output Intake/Output: Intake & Output 10/11/24 10/12/24 10/13/24 10/14/24 23:59 23:59 23:59 23:59 Intake Total 5338 122 1129 777 Output Total 525 400 450 Balance 1235 490 920 777 Meds/Results Medications: Active Medications Generic Name Dose Route Start Last Admin Trade Name Freq PRN Reason Stop Dose Admin Acetaminophen 650 mg 10/02/24 16:55 10/12/24 00:01 Acetaminophen 325 Mg Tablet PO 650 mg Q4H PRN Administration Mild Pain (1-3) or Fever Albuterol 2.5 mg 10/12/24 13:19 Albuterol Sulfate Neb 2.5 Mg/3 Ml Inh INHALATION Q4HRT PRN Shortness Of Breath Amoxicillin/Clavulanate Potassium 1 tablet 10/06/24 21:00 10/14/24 08:30 Amoxicillin/Clavulanate K 500-125 Mg Tab PO 10/20/24 21:01 1 tablet Q12HR TAMIKA Administration Aspirin 81 mg 10/03/24 09:00 10/14/24 08:31 Aspirin 81 Mg Enteric Tablet PO 81 mg QAM TAMIKA Administration Atorvastatin Calcium 80 mg 10/03/24 09:00 10/14/24 08:31 Atorvastatin 40 Mg Tablet PO 80 mg DAILY TAMIKA Administration Bumetanide 0.5 mg 10/03/24 09:00 10/08/24 08:32 Bumetanide 0.5 Mg Tablet PO 0.5 mg DAILY TAMIKA Administration Buspirone HCl 10 mg 10/03/24 09:00 10/14/24 08:31 Buspirone Hcl 10 Mg Tablet PO 10 mg BID TAMIKA Administration Calcitriol 0.25 mcg 10/03/24 09:00 10/13/24 08:36 Calcitriol 0.25 Mcg Capsule PO 0.25 mcg MoWeFr@0900 TAMIKA Administration Dextrose 12.5 gm 10/02/24 17:35 Dextrose 50% 25 Gm/50 Ml Syringe IV PUSH PRN PRN Hypoglycemia Protocol Docusate Sodium 100 mg 10/03/24 09:00 10/14/24 08:31 Docusate Sodium 100 Mg Capsule PO 100 mg BID TAMIKA Administration Ezetimibe 10 mg 10/03/24 09:00 10/14/24 08:30 Ezetimibe 10 Mg Tablet PO 10 mg DAILY TAMIKA Administration Empagliflozin 25 mg 10/03/24 09:00 10/14/24 08:31 Empagliflozin 25 Mg Tablet BY MOUTH 25 mg QAM TAMIKA Administration Fluticasone Propionate 1 spray 10/11/24 21:00 10/14/24 08:32 Fluticasone Propionate 0.05% Na Spr 16 Gm Btl (*Bkc) NASAL 1 spray Q12HR [facility]IKA Administration Glucagon 1 mg 10/02/24 17:35 Glucagon For Inj 1 Mg Vial IM PRN PRN Hypoglycemia Protocol Glucose 15 gm 10/02/24 17:35 10/13/24 17:38 Glucose Oral Gel 15 Gm Of Glucse In 37.5 Gm Tube PO 15 gm PRN PRN Administration Hypoglycemia Protocol Heparin Sodium (Porcine) 5,000 units 10/14/24 21:00 Heparin Sodium 5,000 Units/Ml Vial SUB-Q Q12HR [facility]AMIKA Dextrose 1,000 mls @ 100 mls/hr 10/02/24 17:35 Dextrose 5% 1,000 Ml IVPB PRN PRN Hypoglycemia Protocol Insulin Aspart 3 - 6 units 10/03/24 08:00 10/14/24 12:09 Insulin Aspart (*Bkc) 100 Units/Ml SUB-Q 3 units TIDWM TAMIKA Administration Protocol Insulin Aspart 1 - 3 units 10/02/24 21:00 10/13/24 21:30 Insulin Aspart (*Bkc) 100 Units/Ml SUB-Q Not Given HS TAMIKA Protocol Insulin Human Regular 25 units 10/03/24 13:00 10/14/24 12:08 Insulin Human Regular (*Bkc) 100 Units/Ml SUB-Q 25 units DAILY@1200 [facility] Administration Insulin Human Regular 55 units 10/05/24 08:00 10/14/24 08:27 Insulin Human Regular (*Bkc) 100 Units/Ml SUB-Q 55 units DAILY@0800 TAMIKA Administration Isosorbide Mononitrate 90 mg 10/03/24 09:00 10/14/24 08:30 Isosorbide Mononitrate 30 Mg Tab.Er.24h PO 90 mg DAILY TAMIKA Administration Loperamide HCl 2 mg 10/13/24 13:26 Loperamide Hcl 2 Mg Capsule PO PRN PRN Diarrhea Ondansetron HCl 4 mg 10/02/24 17:35 Ondansetron Inj 4 Mg/2 Ml Vial IV PUSH Q6H PRN Nausea And Vomiting Oxycodone HCl 5 mg 10/06/24 14:41 Oxycodone Hcl (*Crx) 5 Mg Tab Ir PO ONCE PRN Pain Pantoprazole Sodium 40 mg 10/03/24 21:00 10/13/24 21:30 Pantoprazole 40 Mg Tablet PO 40 mg QHS TAMIKA Administration Polyethylene Glycol 17 gm 10/05/24 14:48 Polyethylene Glycol 3350 17 Gm Powd.Pack PO QAM PRN Constipation Propranolol HCl 80 mg 10/03/24 09:00 10/14/24 12:08 Propranolol Hcl 40 Mg Tablet PO 80 mg TID TAMIKA Administration Sertraline HCl 50 mg 10/02/24 23:10 10/14/24 08:31 Sertraline Hcl 50 Mg Tablet BY MOUTH 50 mg DAILY TAMIKA Administration Sodium Chloride 1 spray 10/11/24 16:22 10/12/24 00:02 Saline 0.65% Fabiano Soln 44 Ml Btl NASAL 1 spray Q6HR PRN Administration Congestion Radiology Results: ITS Impressions Foot X-Ray 10/02/24 14:32 IMPRESSION: 1. Nondisplaced fracture of lateral aspect of head of first proximal phalanx. 2. Nondisplaced stellate fracture of tuft of first distal phalanx. 3. Mild polyarticular osteoarthritis. Renal Ultrasound 10/07/24 11:52 IMPRESSION: 1. 3.4 cm mixed solid and cystic lesion at the upper pole the right kidney with 2 cm solid nodular component which is concerning for renal cell carcinoma. Recommend urologic consultation and further evaluation with pre and postcontrast MRI or CT. 2. No hydronephrosis in either kidney. 3. Trabeculated bladder wall which can be seen with neurogenic bladder or chronic outlet obstruction such as in the setting of prostatomegaly. Renal Scan Nuclear Medicine 10/13/24 14:38 IMPRESSION: 1. Symmetric kidney function. 2. Delayed uptake and clearance of activity from the kidneys, consistent with decreased kidney function. Chest X-Ray 10/13/24 15:10 IMPRESSION: No acute cardiopulmonary process. Labs Labs: Laboratory Results - last 24 hr 10/13/24 10/13/24 10/13/24 17:32 17:48 18:17 WBC RBC Hgb Hct MCV MCH MCHC RDW Plt Count MPV Immature Gran % (Auto) Neut % (Auto) Lymph % (Auto) [place] % (Auto) Eos % (Auto) Baso % (Auto) Lymph # (Auto) [place] # (Auto) Eos # (Auto) Baso # (Auto) Abs Immat Gran (auto) Absolute Neuts (auto) Absolute Nucleated RBC Nucleated RBC % Sodium Potassium Chloride Carbon Dioxide Anion Gap BUN Creatinine Estim Creat Clear Calc Estimated GFR Glucose POC Capillary Glucose 52 L* 65 97 Calcium Phosphorus Total Bilirubin AST ALT Alkaline Phosphatase Total Protein Albumin 10/13/24 10/14/24 10/14/24 21:19 05:58 07:48 WBC 7.2 RBC 3.43 L Hgb 10.4 L Hct 32.2 L MCV 93.9 MCH 30.3 MCHC 32.3 RDW 14.3 Plt Count 260 MPV 10.8 H Immature Gran % (Auto) 0.6 H Neut % (Auto) 49.4 Lymph % (Auto) 40.6 [place] % (Auto) 8.2 Eos % (Auto) 0.8 Baso % (Auto) 0.4 Lymph # (Auto) 2.91 [place] # (Auto) 0.6 Eos # (Auto) 0.1 Baso # (Auto) 0.0 Abs Immat Gran (auto) 0.04 H Absolute Neuts (auto) 3.5 Absolute Nucleated RBC 0.000 Nucleated RBC % 0.0 Sodium 134 L Potassium 4.4 Chloride 107 Carbon Dioxide 13 L Anion Gap 14 H BUN 91 H Creatinine 5.71 H Estim Creat Clear Calc 16 Estimated GFR 10 L Glucose 143 H POC Capillary Glucose 180 H 164 H Calcium 7.2 L Phosphorus 8.5 H Total Bilirubin 0.8 AST 79 H ALT 68 H Alkaline Phosphatase 215 H Total Protein 6.0 L Albumin 2.7 L 10/14/24 11:38 WBC RBC Hgb Hct MCV MCH MCHC RDW Plt Count MPV Immature Gran % (Auto) Neut % (Auto) Lymph % (Auto) [place] % (Auto) Eos % (Auto) Baso % (Auto) Lymph # (Auto) [place] # (Auto) Eos # (Auto) Baso # (Auto) Abs Immat Gran (auto) Absolute Neuts (auto) Absolute Nucleated RBC Nucleated RBC % Sodium Potassium Chloride Carbon Dioxide Anion Gap BUN Creatinine Estim Creat Clear Calc Estimated GFR Glucose POC Capillary Glucose 218 H Calcium Phosphorus Total Bilirubin AST ALT Alkaline Phosphatase Total Protein Albumin
[2024-10-14 16:52] LABS: Glucose Point of Care 99 mg/dl (65-105)
[2024-10-14] MEDS: SODIUM BICARBONATE TAB 650 MG TABLET 1300 MG PO (17:18)
[2024-10-14] MEDS: PANTOPRAZOLE 40 MG TABLET PO (20:47)
[2024-10-14] MEDS: HEPARIN SODIUM 5,000 UNITS/ML VIAL 5000 UNITS SUB-Q (20:47)
[2024-10-14 21:21] LABS: Glucose Point of Care 111 mg/dl (65-105)
[2024-10-15 04:00] VITALS: BP 141/82; PULSE 66; RESP 18; TEMP 36.9; O2SAT 99
[2024-10-15 07:06] LABS: Basophils Percent Auto 0.3 % (0.2-1.2); Eosinophils Absolute Auto 0.1 K/mm3 (0-0.3); Eosinophils Percent Auto 0.7 % (0-4.4); Hematocrit 30.6 % (42.0-52.0); Hemoglobin 9.8 g/dL (14.0-18.0); Immature Granulocyte Absolute 0.04 K/mm3 (0.00-0.031); Immature Granulocyte Percent A 0.5 % (0-0.5); Lymphocytes Percent Auto 32.8 % (18.3-44.2); Mean Corpuscular Hemoglobin 30.2 pg (26-34); Mean Corpuscular Volume 94.4 fl (80-100); Mean Platelet Volume 10.7 fl (7.4-10.4); Monocytes Absolute Auto 0.7 K/mm3 (0.1-0.6); Monocytes Percent Auto 9.2 % (2.6-8.5); Neutrophils Absolute Auto 4.3 K/mm3 (1.3-6.7); Neutrophils Percent Auto 56.5 % (45.5-73.1); Platelet Count Result 226 k/mm3 (150-375); Red Blood Count 3.24 M/mm3 (4.6-6.20); Red Cell Distribution Width 14.4 % (11.5-14.5); White Blood Count 7.6 K/mm3 (4.5-10.0)
[2024-10-15 07:18] LABS: Alanine Aminotransferase 72 U/L (6-50); Albumin Level 2.6 g/dL (3.5-5.1); Alkaline Phosphatase 199 U/L (38-126); Anion Gap 14 mmol/L (4-12); Aspartate Amino Transferase 81 U/L (17-59); Bilirubin,Total 0.7 mg/dL (0.2-1.3); Blood Urea Nitrogen 93 mg/dL (9-20); Calcium 6.9 mg/dL (8.4-10.2); Carbon Dioxide 15 mmol/L (22-30); Chloride 107 mmol/L (98-107); Estimated CRCL calculation 15 ml/min; Estimated Glomerular Filt Rate 9; Glucose 123 mg/dL (65-110); Magnesium 2.5 mg/dL (1.6-2.3); Potassium 4.7 mmol/L (3.4-5.0); Sodium 136 mmol/L (137-145)
[2024-10-15 08:00] VITALS: BP 138/84; PULSE 78; RESP 18; TEMP 36.8; O2SAT 94
[2024-10-15 08:11] LABS: Glucose Point of Care 126 mg/dl (65-105)
[2024-10-15] MEDS: EZETIMIBE 10 MG TABLET PO (08:48)
[2024-10-15] MEDS: ISOSORBIDE MONONITRATE 30 MG TAB.ER.24H 90 MG PO (08:48)
[2024-10-15] MEDS: busPIRone HCL 10 MG TABLET PO ×2 (08:48→18:00)
[2024-10-15] MEDS: AMOXICILLIN/CLAVULANATE K 500-125 MG TAB 1 TABLET PO ×2 (08:48→21:10)
[2024-10-15] MEDS: PROPRANOLOL HCL 40 MG TABLET 80 MG PO ×3 (08:48→17:59)
[2024-10-15] MEDS: EMPAGLIFLOZIN 25 MG TABLET BY MOUTH (08:48)
[2024-10-15] MEDS: ASPIRIN 81 MG ENTERIC TABLET PO (08:48)
[2024-10-15] MEDS: HEPARIN SODIUM 5,000 UNITS/ML VIAL 5000 UNITS SUB-Q ×2 (08:49→21:10)
[2024-10-15] MEDS: SERTRALINE HCL 50 MG TABLET BY MOUTH (08:49)
[2024-10-15] MEDS: SODIUM BICARBONATE TAB 650 MG TABLET 1300 MG PO ×3 (08:49→17:59)
[2024-10-15] MEDS: FLUTICASONE PROPIONATE 0.05% NA SPR 16 GM BTL (*BKC) 1 SPRAY NASAL ×2 (08:50→21:11)
[2024-10-15] MEDS: INSULIN HUMAN REGULAR (*BKC) 100 UNITS/ML 55 UNITS SUB-Q (08:50)
[2024-10-15] MEDS: calcitrioL 0.25 MCG CAPSULE PO (08:52)
[2024-10-15] MEDS: ATORVASTATIN 40 MG TABLET 80 MG PO (08:52)
[2024-10-15 09:42] LABS: Phosphorus 8.6 mg/dL (2.5-4.5)
[2024-10-15] MEDS: CALCIUM GLUC 1,000 MG/NS 50 ML 1,000 MG/50 ML BAG 100 MG IVPB (10:02)
[2024-10-15 11:48] LABS: Glucose Point of Care 116 mg/dl (65-105)
[2024-10-15 12:00] VITALS: BP 141/85; PULSE 88; RESP 18; TEMP 36.9; O2SAT 97
--- NOTE | 2024-10-15 12:25 | P.PNIM_ITS ---
Progress Note: A&P Assessment and Plan (1) Diabetic foot ulcer: Code(s): E11.621 - Type 2 diabetes mellitus with foot ulcer; L97.509 - Non-pressure chronic ulcer of other part of unspecified foot with unspecified severity Status: Acute Assessment and Plan: patient reports injury to right great toe with worsening symptoms patient has severe diabetes and CAD with poor wound healing initial x-ray did show right great toe was also fractured * CRP elevate no WBC * Surgery consulted if debridement or amputation needed * blood cultures no growth today * wound culture ordered * NPO in case of possible procedure * IV cefepime, vancomycin and Flagyl * Will need close glucose control for any type of wound healing patient is a severely uncontrolled diabetic on high-dose insulin 10/04: * Day 1 post-op * Blood cultures NGTD * inoperative wound culture pending * continue with current ABX therapy will de-escalate with Culture and sensitivity * Plan is surgery 10/06 for amputation due to exposed fractured toe 10/05: * Postop day 2 * normal wbc no fever * blood cultures NGTD * wound culture still pending * surgery tomorrow hold morning Lovenox 10/06 10/06: * Amputation 10/06 * Aerobic culture grew Staphylococcus aureus * De-escalated ABX to doxycycline Augmentin times 14 days. 10/07: * Post-op day 2 * Minimal pain * ABX de-escalated based on sensitivities MSSA * 10/08 post op day 3 no specific complaints awaiting PT evaluation to return home with is what pt wants 10/09 - will continue current Augmentin and wound treatment plan 10/10 - will continue current plan of treatment 10/12/24: * Continue Augmentin as ordered. * Continue dressing changes. 10/13/24: * Stable without any complaints of pain. Normal WBC's. * Continue dressings as ordered and Augmentin. 10/14/24: * Stable. * Continue Augmentin through 10/20/24. * Pt reports no pain. * No lab evidence of acute infection. 10/15/24 * Stable. * Continue Augmentin through 10/20/24. * Pt reports no pain. * No lab evidence of acute infection. (2) Fracture of right great toe: Code(s): S92.401A - Displaced unspecified fracture of right great toe, initial encounter for closed fracture Status: Acute Assessment and Plan: * Nondisplaced fracture of lateral aspect of head of first proximal phalanx. * Nondisplaced stellate fracture of tuft of first distal phalanx. * Orthopedics consulted * Pain management * elevate at rest * Great toe was Amputated - wound management doing well. 10/12/24: * See #1 - s/p amputation (3) Chronic kidney disease, stage 3b: Code(s): N18.32 - Chronic kidney disease, stage 3b Status: Acute Assessment and Plan: Acute on chronic renal failure Baseline around mid 2.5 * CR 3.32 POA * Currently on vancomycin pharmacy to dose will need to deescalate cultures * Avoid nephrotoxic drugs. * Monitor antihypertensive drug therapy. * Avoid NSAIDs. * Routine CMP monitoring GFR. * Monitor electrolytes especially potassium. * Antibiotic doses depending on creatinine clearance. * Pharmacy does medications. 10/07: * Cr continues to trend up 3.37 today * de-escalated ABX therapy and had IV fluids with no improvement * Nephrology consulted for further evaluation or recommendation baseline mid 2's * Renal US pending 10/08 creat is 4 nephrology rounding see recommendations 10/09 - creat - 4.30, BUN 84, GFR 14. Nephrology aware and monitoring. --> will give 1 liter of IV fluids today 10/10 - creat - 4.57, BUN 81, GFR 13, Nephrology aware and monitoring --> Nephrology to follow. Stopped Bumex prior, worsening Renal function. creat - 5.11, BUN 84, GFR 11, K- 5.1 - Nephrology following as well. 10/12/24: * Upward trend in Cr/BUN continues with labs showing 5.29/91 today. * Nephrology is following. * Continue to hold Bumex. * Minimize/eliminate renal offending agents. * Continue to trend renal function with daily labs. 10/13/24: * Acute on chronic progression vs. JUAN CARLOS from COVID * Nephrology continues to follow. * Holding Bumex. * Continue to trend. * NM Renal scan ordered for today. 10/14/24: * NM renal scan shows normal symmetric kidney function and delayed uptake and clearance of activity from within the kidneys, consistent with decreased kidney function. * Interval increase in creatinine to 5.71 today. (3.32 on admission) * Nephrology is following. Etiology uncertain but considers COVID, DM, HTN, Vascular disease and age. * Continue to hold diuretics, but pt is appearing to have some extra fluid on board. * Continue to trend labs. * Minimize renal offending agents. * Low Potassium diet * IVF challenge given again at request of Nephrology. 10/15/24: * NM renal scan shows normal symmetric kidney function and delayed uptake and clearance of activity from within the kidneys, consistent with decreased kidney function. * Creatinine 6.04 today (3.32 on admission). * Nephrology is following. Etiology uncertain but considers COVID, DM, HTN, Vascular disease and age. * Continue to hold diuretics, but pt is appearing to have some extra fluid on board. * Continue to trend labs. * Minimize renal offending agents. * Low Potassium diet (4) Type 2 diabetes mellitus with diabetic polyneuropathy: Code(s): E11.42 - Type 2 diabetes mellitus with diabetic polyneuropathy Status: Acute Assessment and Plan: * Diabetic diet * Holding semaglutide * Hemoglobin A1c pending * Accuchecks ACHS * SSI moderate dosing added * Patient is hard to control diabetic on several diabetic medication, and high- dose insulin started conversion to U 100 while hospitalized and adjust as need currently 65u/25u/10u * Continue Jardiance and Zetia 10/12/24: * Continue current glycemic regimen. * Monitor and adjust as necessary. 10/13/24: * Fasting glucose this AM is 149. * No further adjustments to insulin dosing. * Continue current regimen for management. 10/14/24: * Current regimen is managing well. * A1C is 7.9. * Continue Diabetic/Low potassium diet. 10/15/24: * Current regimen is managing well. * Continue Diabetic/Low potassium diet. (5) Diastolic dysfunction: Onset Date: 03/2022 Code(s): I51.89 - Other ill-defined heart diseases Status: Chronic Assessment and Plan: * patient does not appear to be in exacerbation * stopped Bumex 10/12/24: * Continues to appear euvolemic. 10/13/24: * Pt with mild edema to the BUE and the BLE, no pitting. Will need continued close monitoring. Continue to hold Bumex. 10/15/24 * Creatinine 6.04, Bumex on hold. (6) Presence of aortocoronary bypass graft: Onset Date: 10/2017 Code(s): Z95.1 - Presence of aortocoronary bypass graft Status: Acute Assessment and Plan: * Continue Inderal, aspirin, Lipitor, an imdur, Atorvastatin 10/13/24: * Continue current meds. (7) COVID: Code(s): U07.1 - COVID-19 Status: Acute Assessment and Plan: 10/12/24: * Supportive care. * No steroids or other antivirals ordered in setting of no supplemental oxygen required. * PRN nebs ordered. 10/13/24: * Continue supportive care. (8) Renal mass, right: Code(s): N28.89 - Other specified disorders of kidney and ureter Status: Acute Assessment and Plan: 10/12/24: * A 3.4 cm mixed solid and cystic lesion at the upper pole the right kidney with 2 cm solid nodular component which is concerning for renal cell carcinoma. Recommend urologic consultation and further evaluation with pre and postcontrast MRI or CT. * Unable to do further imaging at this time due to renal function. * Urology and Nephrology following. 10/13/24: * Discussed with Dr. Jacobsen whether or not it is appropriate to inquire about doing a biopsy of the renal mass and whether or not that is contributing to his renal function, but he does not believe that it is contributing. He further notes that if there is concern for possible neoplastic disease, typically the mass is just resected and not biopsied. (9) Transaminitis: Code(s): R74.01 - Elevation of levels of liver transaminase levels Status: Acute Assessment and Plan: 10/14/24: * New during this admission. * Most likely etiology is having COVID. * Continue to trend. * Pt asympotmatic. If any development of pain, N/V then would consider RUQ US/CT abd pelvis. Plan Subjective Date/time seen: 10/15/24 12:25 Interval history: Patient sitting up in bed. Patient denies chest pain, palpitations, headache, dizziness, nausea, or vomiting. Review of Systems Review of Systems: All systems reviewed & are unremarkable except as noted in HPI and below Exam Const: General: comfortable and no acute distress Resp: Effort & Inspection: normal respiratory effort Auscultation: clear to auscultation bilaterally Cardio: Rate: regular rate Rhythm: regular rhythm GI: GI Palp: Yes Soft to palpation Auscultation: normal bowel sounds Skin: Wounds: wounds noted (Right great toe amputated with small amount of dry blood on gauze. Healing.) Neuro: Speech: normal speech Extrem: General: edema (BUE and BLE edema, not pitting.) Other: FROM actively of extremities. Right foot is s/p Right great toe amputation. Psych: Mental Status: mental status grossly normal Affect: normal affect Objective Data Vital Signs Vital Signs: Vital Signs - 24 hr 10/14/24 16:00 10/14/24 16:40 10/14/24 20:00 Temperature 98.2 F 98.3 F Pulse Rate 81 61 64 Respiratory Rate 18 18 Blood Pressure 134/72 136/68 Pulse Oximetry 99 97 Oxygen Delivery 10/14/24 20:00 10/15/24 04:00 10/15/24 08:00 Temperature 98.4 F 98.2 F Pulse Rate 64 66 78 Respiratory Rate 18 18 18 Blood Pressure 141/82 H 138/84 Pulse Oximetry 97 99 94 Oxygen Delivery Room Air 10/15/24 12:00 Temperature 98.4 F Pulse Rate 88 Respiratory Rate 18 Blood Pressure 141/85 H Pulse Oximetry 97 Oxygen Delivery Intake/Output Intake/Output: Intake & Output 10/12/24 10/13/24 10/14/24 10/15/24 23:59 23:59 23:59 23:59 Intake Total 890 1370 2017 540 Output Total 400 450 450 Balance 480 174 5109 540 Meds/Results Medications: Active Medications Generic Name Dose Route Start Last Admin Trade Name Freq PRN Reason Stop Dose Admin Acetaminophen 650 mg 10/02/24 16:55 10/12/24 00:01 Acetaminophen 325 Mg Tablet PO 650 mg Q4H PRN Administration Mild Pain (1-3) or Fever Albuterol 2.5 mg 10/12/24 13:19 Albuterol Sulfate Neb 2.5 Mg/3 Ml Inh INHALATION Q4HRT PRN Shortness Of Breath Amoxicillin/Clavulanate Potassium 1 tablet 10/06/24 21:00 10/15/24 08:48 Amoxicillin/Clavulanate K 500-125 Mg Tab PO 10/20/24 21:01 1 tablet Q12HR TAMIKA Administration Aspirin 81 mg 10/03/24 09:00 10/15/24 08:48 Aspirin 81 Mg Enteric Tablet PO 81 mg QAM TAMIKA Administration Atorvastatin Calcium 80 mg 10/03/24 09:00 10/15/24 08:52 Atorvastatin 40 Mg Tablet PO 80 mg DAILY TAMIKA Administration Bumetanide 0.5 mg 10/03/24 09:00 10/08/24 08:32 Bumetanide 0.5 Mg Tablet PO 0.5 mg DAILY TAMIKA Administration Buspirone HCl 10 mg 10/03/24 09:00 10/15/24 08:48 Buspirone Hcl 10 Mg Tablet PO 10 mg BID TAMIKA Administration Calcitriol 0.25 mcg 10/03/24 09:00 10/15/24 08:52 Calcitriol 0.25 Mcg Capsule PO 0.25 mcg MoWeFr@0900 TAMIKA Administration Dextrose 12.5 gm 10/02/24 17:35 Dextrose 50% 25 Gm/50 Ml Syringe IV PUSH PRN PRN Hypoglycemia Protocol Docusate Sodium 100 mg 10/03/24 09:00 10/15/24 08:50 Docusate Sodium 100 Mg Capsule PO Not Given BID [facility] Ezetimibe 10 mg 10/03/24 09:00 10/15/24 08:48 Ezetimibe 10 Mg Tablet PO 10 mg DAILY TAMIKA Administration Empagliflozin 25 mg 10/03/24 09:00 10/15/24 08:48 Empagliflozin 25 Mg Tablet BY MOUTH 25 mg QAM TAMIKA Administration Fluticasone Propionate 1 spray 10/11/24 21:00 10/15/24 08:50 Fluticasone Propionate 0.05% Na Spr 16 Gm Btl (*Bkc) NASAL 1 spray Q12HR TAMIKA Administration Glucagon 1 mg 10/02/24 17:35 Glucagon For Inj 1 Mg Vial IM PRN PRN Hypoglycemia Protocol Glucose 15 gm 10/02/24 17:35 10/13/24 17:38 Glucose Oral Gel 15 Gm Of Glucse In 37.5 Gm Tube PO 15 gm PRN PRN Administration Hypoglycemia Protocol Heparin Sodium (Porcine) 5,000 units 10/14/24 21:00 10/15/24 08:49 Heparin Sodium 5,000 Units/Ml Vial SUB-Q 5,000 units Q12HR TAMIKA Administration Dextrose 1,000 mls @ 100 mls/hr 10/02/24 17:35 Dextrose 5% 1,000 Ml IVPB PRN PRN Hypoglycemia Protocol Insulin Aspart 3 - 6 units 10/03/24 08:00 10/15/24 11:52 Insulin Aspart (*Bkc) 100 Units/Ml SUB-Q Not Given TIDWM TAMIKA Protocol Insulin Aspart 1 - 3 units 10/02/24 21:00 10/14/24 20:48 Insulin Aspart (*Bkc) 100 Units/Ml SUB-Q Not Given HS [facility] Protocol Insulin Human Regular 25 units 10/03/24 13:00 10/14/24 12:08 Insulin Human Regular (*Bkc) 100 Units/Ml SUB-Q 25 units DAILY@1200 TAMIKA Administration Insulin Human Regular 55 units 10/05/24 08:00 10/15/24 08:50 Insulin Human Regular (*Bkc) 100 Units/Ml SUB-Q 55 units DAILY@0800 TAMIKA Administration Isosorbide Mononitrate 90 mg 10/03/24 09:00 10/15/24 08:48 Isosorbide Mononitrate 30 Mg Tab.Er.24h PO 90 mg DAILY TAMIKA Administration Loperamide HCl 2 mg 10/13/24 13:26 Loperamide Hcl 2 Mg Capsule PO PRN PRN Diarrhea Ondansetron HCl 4 mg 10/02/24 17:35 Ondansetron Inj 4 Mg/2 Ml Vial IV PUSH Q6H PRN Nausea And Vomiting Oxycodone HCl 5 mg 10/06/24 14:41 Oxycodone Hcl (*Crx) 5 Mg Tab Ir PO ONCE PRN Pain Pantoprazole Sodium 40 mg 10/03/24 21:00 10/14/24 20:47 Pantoprazole 40 Mg Tablet PO 40 mg QHS TAMIKA Administration Polyethylene Glycol 17 gm 10/05/24 14:48 Polyethylene Glycol 3350 17 Gm Powd.Pack PO QAM PRN Constipation Propranolol HCl 80 mg 10/03/24 09:00 10/15/24 08:48 Propranolol Hcl 40 Mg Tablet PO 80 mg TID TAMIKA Administration Sertraline HCl 50 mg 10/02/24 23:10 10/15/24 08:49 Sertraline Hcl 50 Mg Tablet BY MOUTH 50 mg DAILY TAMIKA Administration Sodium Bicarbonate 1,300 mg 10/14/24 17:05 10/15/24 08:49 Sodium Bicarbonate Tab 650 Mg Tablet PO 1,300 mg TID TAMIKA Administration Sodium Chloride 1 spray 10/11/24 16:22 10/12/24 00:02 Saline 0.65% Fabiano Soln 44 Ml Btl NASAL 1 spray Q6HR PRN Administration Congestion Radiology Results: ITS Impressions Foot X-Ray 10/02/24 14:32 IMPRESSION: 1. Nondisplaced fracture of lateral aspect of head of first proximal phalanx. 2. Nondisplaced stellate fracture of tuft of first distal phalanx. 3. Mild polyarticular osteoarthritis. Renal Ultrasound 10/07/24 11:52 IMPRESSION: 1. 3.4 cm mixed solid and cystic lesion at the upper pole the right kidney with 2 cm solid nodular component which is concerning for renal cell carcinoma. Recommend urologic consultation and further evaluation with pre and postcontrast MRI or CT. 2. No hydronephrosis in either kidney. 3. Trabeculated bladder wall which can be seen with neurogenic bladder or chronic outlet obstruction such as in the setting of prostatomegaly. Renal Scan Nuclear Medicine 10/13/24 14:38 IMPRESSION: 1. Symmetric kidney function. 2. Delayed uptake and clearance of activity from the kidneys, consistent with decreased kidney function. Chest X-Ray 10/13/24 15:10 IMPRESSION: No acute cardiopulmonary process. Labs Labs: Laboratory Results - last 24 hr 10/14/24 10/14/24 10/15/24 16:33 20:46 06:46 WBC 7.6 RBC 3.24 L Hgb 9.8 L Hct 30.6 L MCV 94.4 MCH 30.2 MCHC 32.0 RDW 14.4 Plt Count 226 MPV 10.7 H Immature Gran % (Auto) 0.5 Neut % (Auto) 56.5 Lymph % (Auto) 32.8 [place] % (Auto) 9.2 H Eos % (Auto) 0.7 Baso % (Auto) 0.3 Lymph # (Auto) 2.50 [place] # (Auto) 0.7 H Eos # (Auto) 0.1 Baso # (Auto) 0.0 Abs Immat Gran (auto) 0.04 H Absolute Neuts (auto) 4.3 Absolute Nucleated RBC 0.000 Nucleated RBC % 0.0 Sodium 136 L Potassium 4.7 Chloride 107 Carbon Dioxide 15 L Anion Gap 14 H BUN 93 H Creatinine 6.04 H Estim Creat Clear Calc 15 Estimated GFR 9 L Glucose 123 H POC Capillary Glucose 99 111 H Calcium 6.9 L Phosphorus 8.6 H Magnesium 2.5 H Total Bilirubin 0.7 AST 81 H ALT 72 H Alkaline Phosphatase 199 H Total Protein 6.0 L Albumin 2.6 L 10/15/24 10/15/24 07:57 11:34 WBC RBC Hgb Hct MCV MCH MCHC RDW Plt Count MPV Immature Gran % (Auto) Neut % (Auto) Lymph % (Auto) [place] % (Auto) Eos % (Auto) Baso % (Auto) Lymph # (Auto) [place] # (Auto) Eos # (Auto) Baso # (Auto) Abs Immat Gran (auto) Absolute Neuts (auto) Absolute Nucleated RBC Nucleated RBC % Sodium Potassium Chloride Carbon Dioxide Anion Gap BUN Creatinine Estim Creat Clear Calc Estimated GFR Glucose POC Capillary Glucose 126 H 116 H Calcium Phosphorus Magnesium Total Bilirubin AST ALT Alkaline Phosphatase Total Protein Albumin Quality VTE Prophylaxis VTE prophylaxis: mechanical ordered and pharmacologic ordered
[2024-10-15 13:10] VITALS: PULSE 64
[2024-10-15] MEDS: guaiFENesin 12 HR 600 MG TABCR PO ×2 (13:11→21:10)
--- NOTE | 2024-10-15 13:48 | P.PNNP_ITS ---
Progress Note: A&P Assessment and Plan (1) JUAN CARLOS (acute kidney injury): Code(s): N17.9 - Acute kidney failure, unspecified Status: Acute Assessment and Plan: * as noted on admission - creatinine of 3.32mg/dl * came down to 2.9mg/dl transiently * presumed etiology likely secondary to acute infection - right great toe diabetic foot ulcer + cellulitis * however, cannot discount an element of CKD progression * evaluation to date noted: * renal u/s without hydro but concerning for renal mass * urine electrolytes pre-renal * urine eosinophils noted * UA (from 10/07) suggestive of infection -- culture Annie (but low CFU) * proteinuria noted * CPK normal * renal scan suggestive of ATN * holding diuretic therapy for now * on sodium bicarbonate for acidosis * remains at risk for [facility]/dialysis given trend of labs.... * follow repeat labs and UOP (2) Chronic kidney disease, stage IV (severe): Code(s): N18.4 - Chronic kidney disease, stage 4 (severe) Status: Chronic Assessment and Plan: * baseline creatinine has been running 2.3 - 2.7mg/dl in the last few years * however, last creatinine up to 2.86mg/dl in July 2024 * due to diabetes, hypertension, vascular disease, (CAD + CHF + hyperlipidemia + PVD), and age * follows with Dr. Caprice Gusman for managment of his chronic kidney disease (3) Diabetic foot ulcer: Code(s): E11.621 - Type 2 diabetes mellitus with foot ulcer; L97.509 - Non-pressure chronic ulcer of other part of unspecified foot with unspecified severity Status: Acute Assessment and Plan: * as noted on admission * poor wound healing noted since injury * X-ray with right great toe fracture * complicated by cellulitis of right great toe * s/p right great toe amputation by Surgery (on 10/06) * culture data noted * blood cultures negative * would culture with Staph aureus * on antibiotics * local wound care (4) COVID: Code(s): U07.1 - COVID-19 Status: Acute Assessment and Plan: * as noted by recent testing * no evidence of hypoxia * possibly playing a role with #1(?) * continue supportive care (5) Diastolic dysfunction: Onset Date: 03/2022 Code(s): I51.89 - Other ill-defined heart diseases Status: Chronic Assessment and Plan: * appears compensated at this time * home diuretic therapy on hold due to #1 * follow volume/respiratory status (6) Anemia: Code(s): D64.9 - Anemia, unspecified Status: Chronic Assessment and Plan: * presumably related to CKD from some contributions from JUAN CARLOS, acute infection, and recent operative procedure * follow trend of H/H * no need for TAMIKO at this time (7) Urinary tract infection: Code(s): N39.0 - Urinary tract infection, site not specified Status: Acute Assessment and Plan: * recent UA (10/07) suggestive * urine culture x 2 with low CFU Annie (8) Hypertension: Code(s): I10 - Essential (primary) hypertension Status: Chronic Assessment and Plan: * reasonable control at this time * follow trend of hemodynamics (9) Renal mass, right: Code(s): N28.89 - Other specified disorders of kidney and ureter Status: Acute Assessment and Plan: * as noted on renal ultrasound * Urology recommendations noted (10) Type 2 diabetes mellitus with diabetic polyneuropathy: Code(s): E11.42 - Type 2 diabetes mellitus with diabetic polyneuropathy Status: Acute Assessment and Plan: * follow accu-checks * brittle control noted - last HgbA1c noted * glycemic control per hospitalist Will continue to follow. L Subjective Date/time seen: 10/15/24 13:48 Interval history: Follow-up for acute kidney injury/acute renal failure on chronic kidney disease. Renal function continues to deteriorate despite all therapy to date; fluctuating appetite and energy level noted and concerning for possible uremic symptoms; still making urine (but difficult to fully quantitate); no acute distress noted. Exam 2 Narrative: General: elderly WD/WN male in NAD Heart: normal S1 and S2; no rub Lungs: clear to auscultation Abdomen: soft, nontender, nondistended, positive bowel sounds Extremities: no cyanosis or clubbing; trace edema Skin: dressings over right foot present Objective Data Vital Signs Vital Signs: Vital Signs Temp Pulse Resp BP Pulse Ox O2 Del Method 10/15/24 13:10 64 10/15/24 12:00 98.4 F 88 18 141/85 H 97 10/15/24 08:00 98.2 F 78 18 138/84 94 10/15/24 04:00 98.4 F 66 18 141/82 H 99 10/14/24 20:00 64 18 97 Room Air 10/14/24 20:00 98.3 F 64 18 136/68 97 Intake/Output Intake/Output: Intake & Output 10/12/24 10/13/24 10/14/24 10/15/24 23:59 23:59 23:59 23:59 Intake Total 890 1370 2017 2570 Output Total 400 450 450 Balance 074 730 6427 2570 Meds/Results Medications: Active Medications Generic Name Dose Route Start Last Admin Trade Name Freq PRN Reason Stop Dose Admin Acetaminophen 650 mg 10/02/24 16:55 10/12/24 00:01 Acetaminophen 325 Mg Tablet PO 650 mg Q4H PRN Administration Mild Pain (1-3) or Fever Albuterol 2.5 mg 10/12/24 13:19 Albuterol Sulfate Neb 2.5 Mg/3 Ml Inh INHALATION Q4HRT PRN Shortness Of Breath Amoxicillin/Clavulanate Potassium 1 tablet 10/06/24 21:00 10/15/24 08:48 Amoxicillin/Clavulanate K 500-125 Mg Tab PO 10/20/24 21:01 1 tablet Q12HR TAMIKA Administration Aspirin 81 mg 10/03/24 09:00 10/15/24 08:48 Aspirin 81 Mg Enteric Tablet PO 81 mg QAM TAMIKA Administration Atorvastatin Calcium 80 mg 10/03/24 09:00 10/15/24 08:52 Atorvastatin 40 Mg Tablet PO 80 mg DAILY TAMIKA Administration Bumetanide 0.5 mg 10/03/24 09:00 10/08/24 08:32 Bumetanide 0.5 Mg Tablet PO 0.5 mg DAILY TAMIKA Administration Buspirone HCl 10 mg 10/03/24 09:00 10/15/24 18:00 Buspirone Hcl 10 Mg Tablet PO 10 mg BID TAMIKA Administration Calcitriol 0.25 mcg 10/03/24 09:00 10/15/24 08:52 Calcitriol 0.25 Mcg Capsule PO 0.25 mcg [id number]@0900 TAMIKA Administration Dextrose 12.5 gm 10/02/24 17:35 Dextrose 50% 25 Gm/50 Ml Syringe IV PUSH PRN PRN Hypoglycemia Protocol Docusate Sodium 100 mg 10/03/24 09:00 10/15/24 17:16 Docusate Sodium 100 Mg Capsule PO Not Given BID TAMIKA Ezetimibe 10 mg 10/03/24 09:00 10/15/24 08:48 Ezetimibe 10 Mg Tablet PO 10 mg DAILY TAMIKA Administration Empagliflozin 25 mg 10/03/24 09:00 10/15/24 08:48 Empagliflozin 25 Mg Tablet BY MOUTH 25 mg QAM TAMIKA Administration Fluticasone Propionate 1 spray 10/11/24 21:00 10/15/24 08:50 Fluticasone Propionate 0.05% Na Spr 16 Gm Btl (*Bkc) NASAL 1 spray Q12HR TAMIKA Administration Glucagon 1 mg 10/02/24 17:35 Glucagon For Inj 1 Mg Vial IM PRN PRN Hypoglycemia Protocol Glucose 15 gm 10/02/24 17:35 10/13/24 17:38 Glucose Oral Gel 15 Gm Of Glucse In 37.5 Gm Tube PO 15 gm PRN PRN Administration Hypoglycemia Protocol Guaifenesin 600 mg 10/15/24 12:30 10/15/24 13:11 Guaifenesin 12 Hr 600 Mg Tabcr PO 10/22/24 12:29 600 mg Q12HR TAMIKA Administration Heparin Sodium (Porcine) 5,000 units 10/14/24 21:00 10/15/24 08:49 Heparin Sodium 5,000 Units/Ml Vial SUB-Q 5,000 units Q12HR TAMIKA Administration Dextrose 1,000 mls @ 100 mls/hr 10/02/24 17:35 Dextrose 5% 1,000 Ml IVPB PRN PRN Hypoglycemia Protocol Insulin Aspart 3 - 6 units 10/03/24 08:00 10/15/24 17:16 Insulin Aspart (*Bkc) 100 Units/Ml SUB-Q Not Given TIDWM [facility] Protocol Insulin Aspart 1 - 3 units 10/02/24 21:00 10/14/24 20:48 Insulin Aspart (*Bkc) 100 Units/Ml SUB-Q Not Given HS [facility] Protocol Insulin Human Regular 25 units 10/03/24 13:00 10/15/24 14:46 Insulin Human Regular (*Bkc) 100 Units/Ml SUB-Q Not Given DAILY@1200 [facility] Insulin Human Regular 55 units 10/05/24 08:00 10/15/24 08:50 Insulin Human Regular (*Bkc) 100 Units/Ml SUB-Q 55 units DAILY@0800 [facility] Administration Isosorbide Mononitrate 90 mg 10/03/24 09:00 10/15/24 08:48 Isosorbide Mononitrate 30 Mg Tab.Er.24h PO 90 mg DAILY TAMIKA Administration Loperamide HCl 2 mg 10/13/24 13:26 Loperamide Hcl 2 Mg Capsule PO PRN PRN Diarrhea Miscellaneous Information 1 each 10/15/24 09:00 Oxycodone Needs To Be Renewed Or It Will Automatically Discontinue. XX 11/14/24 08:59 DAILY TAMIKA Ondansetron HCl 4 mg 10/02/24 17:35 Ondansetron Inj 4 Mg/2 Ml Vial IV PUSH Q6H PRN Nausea And Vomiting Oxycodone HCl 5 mg 10/06/24 14:41 Oxycodone Hcl (*Crx) 5 Mg Tab Ir PO ONCE PRN Pain Pantoprazole Sodium 40 mg 10/03/24 21:00 10/14/24 20:47 Pantoprazole 40 Mg Tablet PO 40 mg QHS TAMIKA Administration Polyethylene Glycol 17 gm 10/05/24 14:48 Polyethylene Glycol 3350 17 Gm Powd.Pack PO QAM PRN Constipation Propranolol HCl 80 mg 10/03/24 09:00 10/15/24 17:59 Propranolol Hcl 40 Mg Tablet PO 80 mg TID TAMIKA Administration Sertraline HCl 50 mg 10/02/24 23:10 10/15/24 08:49 Sertraline Hcl 50 Mg Tablet BY MOUTH 50 mg DAILY TAMIKA Administration Sodium Bicarbonate 1,300 mg 10/14/24 17:05 10/15/24 17:59 Sodium Bicarbonate Tab 650 Mg Tablet PO 1,300 mg TID TAMIKA Administration Sodium Chloride 1 spray 10/11/24 16:22 10/12/24 00:02 Saline 0.65% Fabiano Soln 44 Ml Btl NASAL 1 spray Q6HR PRN Administration Congestion Radiology Results: ITS Impressions Foot X-Ray 10/02/24 14:32 IMPRESSION: 1. Nondisplaced fracture of lateral aspect of head of first proximal phalanx. 2. Nondisplaced stellate fracture of tuft of first distal phalanx. 3. Mild polyarticular osteoarthritis. Renal Ultrasound 10/07/24 11:52 IMPRESSION: 1. 3.4 cm mixed solid and cystic lesion at the upper pole the right kidney with 2 cm solid nodular component which is concerning for renal cell carcinoma. Recommend urologic consultation and further evaluation with pre and postcontrast MRI or CT. 2. No hydronephrosis in either kidney. 3. Trabeculated bladder wall which can be seen with neurogenic bladder or chronic outlet obstruction such as in the setting of prostatomegaly. Renal Scan Nuclear Medicine 10/13/24 14:38 IMPRESSION: 1. Symmetric kidney function. 2. Delayed uptake and clearance of activity from the kidneys, consistent with decreased kidney function. Chest X-Ray 10/13/24 15:10 IMPRESSION: No acute cardiopulmonary process. Labs Labs: Laboratory Tests 10/15/24 06:46 10/15/24 06:46 Calcium 6.9 L Phosphorus 8.6 H Magnesium 2.5 H Total Bilirubin 0.7 AST 81 H ALT 72 H Alkaline Phosphatase 199 H Total Protein 6.0 L Albumin 2.6 L Microbiology 10/13/24 06:50 Urine Clean Catch Urine Culture - Final Yeast isolated
[2024-10-15 16:00] VITALS: BP 138/87; PULSE 75; RESP 20; TEMP 36.8; O2SAT 99
[2024-10-15 16:48] LABS: Glucose Point of Care 71 mg/dl (65-105)
[2024-10-15 20:00] VITALS: BP 144/75; PULSE 56; RESP 18; TEMP 36.7; O2SAT 100
[2024-10-15] MEDS: PANTOPRAZOLE 40 MG TABLET PO (21:10)
[2024-10-15 22:15] LABS: Glucose Point of Care 132 mg/dl (65-105)
[2024-10-16 04:00] VITALS: BP 141/75; PULSE 63; RESP 20; TEMP 37.2; O2SAT 98
[2024-10-16 06:50] LABS: Basophils Percent Auto 0.2 % (0.2-1.2); Eosinophils Absolute Auto 0.1 K/mm3 (0-0.3); Eosinophils Percent Auto 0.8 % (0-4.4); Hematocrit 30.2 % (42.0-52.0); Hemoglobin 9.7 g/dL (14.0-18.0); Immature Granulocyte Absolute 0.04 K/mm3 (0.00-0.031); Immature Granulocyte Percent A 0.6 % (0-0.5); Lymphocytes Absolute Auto 1.94 K/mm3 (0.9-3.2); Lymphocytes Percent Auto 29.3 % (18.3-44.2); Mean Corpuscular HGB Conc 32.1 g/dl (32-36); Mean Corpuscular Volume 93.5 fl (80-100); Mean Platelet Volume 10.9 fl (7.4-10.4); Monocytes Absolute Auto 0.7 K/mm3 (0.1-0.6); Monocytes Percent Auto 10.9 % (2.6-8.5); Neutrophils Absolute Auto 3.9 K/mm3 (1.3-6.7); Neutrophils Percent Auto 58.2 % (45.5-73.1); Platelet Count Result 214 k/mm3 (150-375); Red Blood Count 3.23 M/mm3 (4.6-6.20); Red Cell Distribution Width 14.3 % (11.5-14.5); White Blood Count 6.6 K/mm3 (4.5-10.0)
[2024-10-16 07:00] LABS: Alanine Aminotransferase 62 U/L (6-50); Albumin Level 2.5 g/dL (3.5-5.1); Alkaline Phosphatase 190 U/L (38-126); Anion Gap 15 mmol/L (4-12); Aspartate Amino Transferase 64 U/L (17-59); Bilirubin,Total 0.8 mg/dL (0.2-1.3); Blood Urea Nitrogen 89 mg/dL (9-20); Calcium 6.7 mg/dL (8.4-10.2); Carbon Dioxide 14 mmol/L (22-30); Chloride 107 mmol/L (98-107); Estimated CRCL calculation 14 ml/min; Estimated Glomerular Filt Rate 9; Glucose 131 mg/dL (65-110); Magnesium 2.3 mg/dL (1.6-2.3); Phosphorus 8.5 mg/dL (2.5-4.5); Potassium 4.4 mmol/L (3.4-5.0); Sodium 136 mmol/L (137-145)
[2024-10-16 08:00] VITALS: BP 143/68; PULSE 60; RESP 20; TEMP 36.9; O2SAT 99
[2024-10-16 08:06] LABS: Glucose Point of Care 153 mg/dl (65-105)
[2024-10-16] MEDS: busPIRone HCL 10 MG TABLET PO ×2 (09:58→18:01)
[2024-10-16] MEDS: AMOXICILLIN/CLAVULANATE K 500-125 MG TAB 1 TABLET PO ×2 (09:58→21:11)
[2024-10-16] MEDS: ISOSORBIDE MONONITRATE 30 MG TAB.ER.24H 90 MG PO (09:58)
[2024-10-16] MEDS: EZETIMIBE 10 MG TABLET PO (09:58)
[2024-10-16] MEDS: CALCIUM GLUC 1,000 MG/NS 50 ML 1,000 MG/50 ML BAG 100 MG IVPB (09:58)
[2024-10-16] MEDS: ASPIRIN 81 MG ENTERIC TABLET PO (09:58)
[2024-10-16] MEDS: PROPRANOLOL HCL 40 MG TABLET 80 MG PO ×3 (09:58→18:01)
[2024-10-16] MEDS: ATORVASTATIN 40 MG TABLET 80 MG PO (09:59)
[2024-10-16] MEDS: EMPAGLIFLOZIN 25 MG TABLET BY MOUTH (09:59)
[2024-10-16] MEDS: INSULIN HUMAN REGULAR (*BKC) 100 UNITS/ML 25 UNITS SUB-Q (09:59)
[2024-10-16] MEDS: guaiFENesin 12 HR 600 MG TABCR PO ×2 (09:59→21:11)
[2024-10-16] MEDS: SERTRALINE HCL 50 MG TABLET BY MOUTH (09:59)
[2024-10-16] MEDS: SODIUM BICARBONATE TAB 650 MG TABLET 1300 MG PO ×3 (09:59→18:01)
[2024-10-16] MEDS: FLUTICASONE PROPIONATE 0.05% NA SPR 16 GM BTL (*BKC) 1 SPRAY NASAL ×2 (10:02→21:12)
[2024-10-16] MEDS: HEPARIN SODIUM 5,000 UNITS/ML VIAL 5000 UNITS SUB-Q ×2 (10:02→21:11)
[2024-10-16 12:00] VITALS: BP 144/66; PULSE 63; RESP 20; TEMP 36.4; O2SAT 99
[2024-10-16 12:07] LABS: Glucose Point of Care 166 mg/dl (65-105)
--- NOTE | 2024-10-16 13:18 | P.PNIM_ITS ---
Progress Note: A&P Assessment and Plan (1) Diabetic foot ulcer: Code(s): E11.621 - Type 2 diabetes mellitus with foot ulcer; L97.509 - Non-pressure chronic ulcer of other part of unspecified foot with unspecified severity Status: Acute Assessment and Plan: patient reports injury to right great toe with worsening symptoms patient has severe diabetes and CAD with poor wound healing initial x-ray did show right great toe was also fractured * CRP elevate no WBC * Surgery consulted if debridement or amputation needed * blood cultures no growth today * wound culture ordered * NPO in case of possible procedure * IV cefepime, vancomycin and Flagyl * Will need close glucose control for any type of wound healing patient is a severely uncontrolled diabetic on high-dose insulin 10/04: * Day 1 post-op * Blood cultures NGTD * inoperative wound culture pending * continue with current ABX therapy will de-escalate with Culture and sensitivity * Plan is surgery 10/06 for amputation due to exposed fractured toe 10/05: * Postop day 2 * normal wbc no fever * blood cultures NGTD * wound culture still pending * surgery tomorrow hold morning Lovenox 10/06 10/06: * Amputation 10/06 * Aerobic culture grew Staphylococcus aureus * De-escalated ABX to doxycycline Augmentin times 14 days. 10/07: * Post-op day 2 * Minimal pain * ABX de-escalated based on sensitivities MSSA * 10/08 post op day 3 no specific complaints awaiting PT evaluation to return home with HH is what pt wants 10/09 - will continue current Augmentin and wound treatment plan 10/10 - will continue current plan of treatment 10/12/24: * Continue Augmentin as ordered. * Continue dressing changes. 10/13/24: * Stable without any complaints of pain. Normal WBC's. * Continue dressings as ordered and Augmentin. 10/14/24: * Stable. * Continue Augmentin through 10/20/24. * Pt reports no pain. * No lab evidence of acute infection. 10/15/24 * Stable. * Continue Augmentin through 10/20/24. * Pt reports no pain. * No lab evidence of acute infection. 10/16/24: * Stable. * Continue Augmentin through 10/20/24. * Pt reports no pain. * No lab evidence of acute infection. (2) Fracture of right great toe: Code(s): S92.401A - Displaced unspecified fracture of right great toe, initial encounter for closed fracture Status: Acute Assessment and Plan: * Nondisplaced fracture of lateral aspect of head of first proximal phalanx. * Nondisplaced stellate fracture of tuft of first distal phalanx. * Orthopedics consulted * Pain management * elevate at rest * Great toe was Amputated - wound management doing well. 10/12/24: * See #1 - s/p amputation (3) Chronic kidney disease, stage 3b: Code(s): N18.32 - Chronic kidney disease, stage 3b Status: Acute Assessment and Plan: Acute on chronic renal failure Baseline around mid 2.5 * CR 3.32 POA * Currently on vancomycin pharmacy to dose will need to deescalate cultures * Avoid nephrotoxic drugs. * Monitor antihypertensive drug therapy. * Avoid NSAIDs. * Routine CMP monitoring GFR. * Monitor electrolytes especially potassium. * Antibiotic doses depending on creatinine clearance. * Pharmacy does medications. 10/07: * Cr continues to trend up 3.37 today * de-escalated ABX therapy and had IV fluids with no improvement * Nephrology consulted for further evaluation or recommendation baseline mid 2's * Renal US pending 10/08 creat is 4 nephrology rounding see recommendations 10/09 - creat - 4.30, BUN 84, GFR 14. Nephrology aware and monitoring. --> will give 1 liter of IV fluids today 10/10 - creat - 4.57, BUN 81, GFR 13, Nephrology aware and monitoring --> Nephrology to follow. Stopped Bumex prior, worsening Renal function. creat - 5.11, BUN 84, GFR 11, K- 5.1 - Nephrology following as well. 10/12/24: * Upward trend in Cr/BUN continues with labs showing 5.29/91 today. * Nephrology is following. * Continue to hold Bumex. * Minimize/eliminate renal offending agents. * Continue to trend renal function with daily labs. 10/13/24: * Acute on chronic progression vs. JUAN CARLOS from COVID * Nephrology continues to follow. * Holding Bumex. * Continue to trend. * NM Renal scan ordered for today. 10/14/24: * NM renal scan shows normal symmetric kidney function and delayed uptake and clearance of activity from within the kidneys, consistent with decreased kidney function. * Interval increase in creatinine to 5.71 today. (3.32 on admission) * Nephrology is following. Etiology uncertain but considers COVID, DM, HTN, Vascular disease and age. * Continue to hold diuretics, but pt is appearing to have some extra fluid on board. * Continue to trend labs. * Minimize renal offending agents. * Low Potassium diet * IVF challenge given again at request of Nephrology. 10/15/24: * NM renal scan shows normal symmetric kidney function and delayed uptake and clearance of activity from within the kidneys, consistent with decreased kidney function. * Creatinine 6.04 today (3.32 on admission). * Nephrology is following. Etiology uncertain but considers COVID, DM, HTN, Vascular disease and age. * Continue to hold diuretics, but pt is appearing to have some extra fluid on board. * Continue to trend labs. * Minimize renal offending agents. * Low Potassium diet 10/16/24: * NM renal scan shows normal symmetric kidney function and delayed uptake and clearance of activity from within the kidneys, consistent with decreased kidney function. * Creatinine 6.43 today (3.32 on admission). * Nephrology is following. Etiology uncertain but considers COVID, DM, HTN, Vascular disease and age. * Continue to hold diuretics, but pt is appearing to have some extra fluid on board. * Continue to trend labs. * Minimize renal offending agents. * Low Potassium diet * NPO after midnight for hemodialysis catheter placement for patient to start hemodialysis. (4) Type 2 diabetes mellitus with diabetic polyneuropathy: Code(s): E11.42 - Type 2 diabetes mellitus with diabetic polyneuropathy Status: Acute Assessment and Plan: * Diabetic diet * Holding semaglutide * Hemoglobin A1c pending * Accuchecks ACHS * SSI moderate dosing added * Patient is hard to control diabetic on several diabetic medication, and high- dose insulin started conversion to U 100 while hospitalized and adjust as need currently 65u/25u/10u * Continue Jardiance and Zetia 10/12/24: * Continue current glycemic regimen. * Monitor and adjust as necessary. 10/13/24: * Fasting glucose this AM is 149. * No further adjustments to insulin dosing. * Continue current regimen for management. 10/14/24: * Current regimen is managing well. * A1C is 7.9. * Continue Diabetic/Low potassium diet. 10/15/24: * Current regimen is managing well. * Continue Diabetic/Low potassium diet. 10/16/24: * Adjusted morning regular insulin to 25 units. * Continue Diabetic/Low potassium diet. (5) Diastolic dysfunction: Onset Date: 03/2022 Code(s): I51.89 - Other ill-defined heart diseases Status: Chronic Assessment and Plan: * patient does not appear to be in exacerbation * stopped Bumex 10/12/24: * Continues to appear euvolemic. 10/13/24: * Pt with mild edema to the BUE and the BLE, no pitting. Will need continued close monitoring. Continue to hold Bumex. 10/15/24 * Creatinine 6.04, Bumex on hold. 10/16/24: * Creatinine 6.43, Bumex on hold. (6) Presence of aortocoronary bypass graft: Onset Date: 10/2017 Code(s): Z95.1 - Presence of aortocoronary bypass graft Status: Acute Assessment and Plan: * Continue Inderal, aspirin, Lipitor, an imdur, Atorvastatin 10/13/24: * Continue current meds. (7) COVID: Code(s): U07.1 - COVID-19 Status: Acute Assessment and Plan: 10/12/24: * Supportive care. * No steroids or other antivirals ordered in setting of no supplemental oxygen required. * PRN nebs ordered. 10/13/24: * Continue supportive care. (8) Renal mass, right: Code(s): N28.89 - Other specified disorders of kidney and ureter Status: Acute Assessment and Plan: 10/12/24: * A 3.4 cm mixed solid and cystic lesion at the upper pole the right kidney with 2 cm solid nodular component which is concerning for renal cell carcinoma. Recommend urologic consultation and further evaluation with pre and postcontrast MRI or CT. * Unable to do further imaging at this time due to renal function. * Urology and Nephrology following. 10/13/24: * Discussed with Dr. Jacobsen whether or not it is appropriate to inquire about doing a biopsy of the renal mass and whether or not that is contributing to his renal function, but he does not believe that it is contributing. He further notes that if there is concern for possible neoplastic disease, typically the mass is just resected and not biopsied. (9) Transaminitis: Code(s): R74.01 - Elevation of levels of liver transaminase levels Status: Acute Assessment and Plan: 10/14/24: * New during this admission. * Most likely etiology is having COVID. * Continue to trend. * Pt asympotmatic. If any development of pain, N/V then would consider RUQ US/CT abd pelvis. Plan Subjective Date/time seen: 10/16/24 13:18 Interval history: Patient sitting up in bed. Patient denies chest pain, palpitations, headache, dizziness, nausea, or vomiting. Patient reports that he will be starting dialysis. Review of Systems Review of Systems: All systems reviewed & are unremarkable except as noted in HPI and below Exam Const: General: comfortable and no acute distress Cardio: Rate: regular rate Rhythm: regular rhythm GI: GI Palp: Yes Soft to palpation Auscultation: normal bowel sounds Skin: Wounds: wounds noted (Right great toe amputated with small amount of dry blood on gauze. Healing.) Neuro: Speech: normal speech Extrem: General: edema (BUE and BLE edema, not pitting.) Other: FROM actively of extremities. Right foot is s/p Right great toe amputation. Psych: Mental Status: mental status grossly normal Affect: normal affect Objective Data Vital Signs Vital Signs: Vital Signs - 24 hr 10/15/24 16:00 10/15/24 20:00 10/15/24 20:00 Temperature 98.2 F 98.1 F Pulse Rate 75 56 L Respiratory Rate 20 18 Blood Pressure 138/87 144/75 H Pulse Oximetry 99 100 Oxygen Delivery Room Air 10/16/24 04:00 10/16/24 08:00 10/16/24 12:00 Temperature 99.0 F 98.5 F 97.6 F Pulse Rate 63 60 63 Respiratory Rate 20 20 20 Blood Pressure 141/75 H 143/68 H 144/66 H Pulse Oximetry 98 99 99 Oxygen Delivery Intake/Output Intake/Output: Intake & Output 10/13/24 10/14/24 10/15/24 10/16/24 23:59 23:59 23:59 23:59 Intake Total 1370 2017 2570 1030 Output Total 450 450 Balance 920 1567 2570 1030 Meds/Results Medications: Active Medications Generic Name Dose Route Start Last Admin Trade Name Freq PRN Reason Stop Dose Admin Acetaminophen 650 mg 10/02/24 16:55 10/12/24 00:01 Acetaminophen 325 Mg Tablet PO 650 mg Q4H PRN Administration Mild Pain (1-3) or Fever Albuterol 2.5 mg 10/12/24 13:19 Albuterol Sulfate Neb 2.5 Mg/3 Ml Inh INHALATION Q4HRT PRN Shortness Of Breath Amoxicillin/Clavulanate Potassium 1 tablet 10/06/24 21:00 10/16/24 09:58 Amoxicillin/Clavulanate K 500-125 Mg Tab PO 10/20/24 21:01 1 tablet Q12HR TAMIKA Administration Aspirin 81 mg 10/03/24 09:00 10/16/24 09:58 Aspirin 81 Mg Enteric Tablet PO 81 mg QAM TAMIKA Administration Atorvastatin Calcium 80 mg 10/03/24 09:00 10/16/24 09:59 Atorvastatin 40 Mg Tablet PO 80 mg DAILY TAMIKA Administration Bumetanide 0.5 mg 10/03/24 09:00 10/08/24 08:32 Bumetanide 0.5 Mg Tablet PO 0.5 mg DAILY TAMIKA Administration Buspirone HCl 10 mg 10/03/24 09:00 10/16/24 09:58 Buspirone Hcl 10 Mg Tablet PO 10 mg BID TAMIKA Administration Calcitriol 0.25 mcg 10/03/24 09:00 10/15/24 08:52 Calcitriol 0.25 Mcg Capsule PO 0.25 mcg MoWeFr@0900 TAMIKA Administration Dextrose 12.5 gm 10/02/24 17:35 Dextrose 50% 25 Gm/50 Ml Syringe IV PUSH PRN PRN Hypoglycemia Protocol Docusate Sodium 100 mg 10/03/24 09:00 10/16/24 10:02 Docusate Sodium 100 Mg Capsule PO Not Given BID TAIMKA Ezetimibe 10 mg 10/03/24 09:00 10/16/24 09:58 Ezetimibe 10 Mg Tablet PO 10 mg DAILY TAMIKA Administration Empagliflozin 25 mg 10/03/24 09:00 10/16/24 09:59 Empagliflozin 25 Mg Tablet BY MOUTH 25 mg QAM TAMIKA Administration Fluticasone Propionate 1 spray 10/11/24 21:00 10/16/24 10:02 Fluticasone Propionate 0.05% Na Spr 16 Gm Btl (*Bkc) NASAL 1 spray Q12HR TAMIKA Administration Glucagon 1 mg 10/02/24 17:35 Glucagon For Inj 1 Mg Vial IM PRN PRN Hypoglycemia Protocol Glucose 15 gm 10/02/24 17:35 10/13/24 17:38 Glucose Oral Gel 15 Gm Of Glucse In 37.5 Gm Tube PO 15 gm PRN PRN Administration Hypoglycemia Protocol Guaifenesin 600 mg 10/15/24 12:30 10/16/24 09:59 Guaifenesin 12 Hr 600 Mg Tabcr PO 10/22/24 12:29 600 mg Q12HR TAMIKA Administration Heparin Sodium (Porcine) 5,000 units 10/14/24 21:00 10/16/24 10:02 Heparin Sodium 5,000 Units/Ml Vial SUB-Q 5,000 units Q12HR TAMIKA Administration Dextrose 1,000 mls @ 100 mls/hr 10/02/24 17:35 Dextrose 5% 1,000 Ml IVPB PRN PRN Hypoglycemia Protocol Insulin Aspart 3 - 6 units 10/03/24 08:00 10/16/24 09:26 Insulin Aspart (*Bkc) 100 Units/Ml SUB-Q Not Given TIDWM [facility] Protocol Insulin Aspart 1 - 3 units 10/02/24 21:00 10/15/24 21:10 Insulin Aspart (*Bkc) 100 Units/Ml SUB-Q Not Given HS [facility] Protocol Insulin Human Regular 25 units 10/03/24 13:00 10/15/24 14:46 Insulin Human Regular (*Bkc) 100 Units/Ml SUB-Q Not Given DAILY@1200 [facility] Insulin Human Regular 25 units 10/16/24 09:35 10/16/24 09:59 Insulin Human Regular (*Bkc) 100 Units/Ml SUB-Q 25 units DAILY@0800 [facility] Administration Isosorbide Mononitrate 90 mg 10/03/24 09:00 10/16/24 09:58 Isosorbide Mononitrate 30 Mg Tab.Er.24h PO 90 mg DAILY TAMIKA Administration Loperamide HCl 2 mg 10/13/24 13:26 Loperamide Hcl 2 Mg Capsule PO PRN PRN Diarrhea Miscellaneous Information 1 each 10/15/24 09:00 Oxycodone Needs To Be Renewed Or It Will Automatically Discontinue. XX 11/14/24 08:59 DAILY TAMIKA Ondansetron HCl 4 mg 10/02/24 17:35 Ondansetron Inj 4 Mg/2 Ml Vial IV PUSH Q6H PRN Nausea And Vomiting Oxycodone HCl 5 mg 10/06/24 14:41 Oxycodone Hcl (*Crx) 5 Mg Tab Ir PO ONCE PRN Pain Pantoprazole Sodium 40 mg 10/03/24 21:00 10/15/24 21:10 Pantoprazole 40 Mg Tablet PO 40 mg QHS TAMIKA Administration Polyethylene Glycol 17 gm 10/05/24 14:48 Polyethylene Glycol 3350 17 Gm Powd.Pack PO QAM PRN Constipation Propranolol HCl 80 mg 10/03/24 09:00 10/16/24 09:58 Propranolol Hcl 40 Mg Tablet PO 80 mg TID TAMIKA Administration Sertraline HCl 50 mg 10/02/24 23:10 10/16/24 09:59 Sertraline Hcl 50 Mg Tablet BY MOUTH 50 mg DAILY TAMIKA Administration Sodium Bicarbonate 1,300 mg 10/14/24 17:05 10/16/24 09:59 Sodium Bicarbonate Tab 650 Mg Tablet PO 1,300 mg TID TAMIKA Administration Sodium Chloride 1 spray 10/11/24 16:22 10/12/24 00:02 Saline 0.65% Fabiano Soln 44 Ml Btl NASAL 1 spray Q6HR PRN Administration Congestion Radiology Results: ITS Impressions Foot X-Ray 10/02/24 14:32 IMPRESSION: 1. Nondisplaced fracture of lateral aspect of head of first proximal phalanx. 2. Nondisplaced stellate fracture of tuft of first distal phalanx. 3. Mild polyarticular osteoarthritis. Renal Ultrasound 10/07/24 11:52 IMPRESSION: 1. 3.4 cm mixed solid and cystic lesion at the upper pole the right kidney with 2 cm solid nodular component which is concerning for renal cell carcinoma. Recommend urologic consultation and further evaluation with pre and postcontrast MRI or CT. 2. No hydronephrosis in either kidney. 3. Trabeculated bladder wall which can be seen with neurogenic bladder or chronic outlet obstruction such as in the setting of prostatomegaly. Renal Scan Nuclear Medicine 10/13/24 14:38 IMPRESSION: 1. Symmetric kidney function. 2. Delayed uptake and clearance of activity from the kidneys, consistent with decreased kidney function. Chest X-Ray 10/13/24 15:10 IMPRESSION: No acute cardiopulmonary process. Labs Labs: Laboratory Results - last 24 hr 10/15/24 10/15/24 10/16/24 16:43 21:05 06:22 WBC 6.6 RBC 3.23 L Hgb 9.7 L Hct 30.2 L MCV 93.5 MCH 30.0 MCHC 32.1 RDW 14.3 Plt Count 214 MPV 10.9 H Immature Gran % (Auto) 0.6 H Neut % (Auto) 58.2 Lymph % (Auto) 29.3 [place] % (Auto) 10.9 H Eos % (Auto) 0.8 Baso % (Auto) 0.2 Lymph # (Auto) 1.94 [place] # (Auto) 0.7 H Eos # (Auto) 0.1 Baso # (Auto) 0.0 Abs Immat Gran (auto) 0.04 H Absolute Neuts (auto) 3.9 Absolute Nucleated RBC 0.000 Nucleated RBC % 0.0 Sodium 136 L Potassium 4.4 Chloride 107 Carbon Dioxide 14 L Anion Gap 15 H BUN 89 H Creatinine 6.43 H Estim Creat Clear Calc 14 Estimated GFR 9 L Glucose 131 H POC Capillary Glucose 71 132 H Calcium 6.7 L Phosphorus 8.5 H Magnesium 2.3 Total Bilirubin 0.8 AST 64 H ALT 62 H Alkaline Phosphatase 190 H Total Protein 6.0 L Albumin 2.5 L 10/16/24 10/16/24 07:41 11:44 WBC RBC Hgb Hct MCV MCH MCHC RDW Plt Count MPV Immature Gran % (Auto) Neut % (Auto) Lymph % (Auto) [place] % (Auto) Eos % (Auto) Baso % (Auto) Lymph # (Auto) [place] # (Auto) Eos # (Auto) Baso # (Auto) Abs Immat Gran (auto) Absolute Neuts (auto) Absolute Nucleated RBC Nucleated RBC % Sodium Potassium Chloride Carbon Dioxide Anion Gap BUN Creatinine Estim Creat Clear Calc Estimated GFR Glucose POC Capillary Glucose 153 H 166 H Calcium Phosphorus Magnesium Total Bilirubin AST ALT Alkaline Phosphatase Total Protein Albumin Quality VTE Prophylaxis VTE prophylaxis: mechanical ordered and pharmacologic ordered
--- NOTE | 2024-10-16 13:40 | P.PNNP_ITS ---
Progress Note: A&P Assessment and Plan (1) JUAN CARLOS (acute kidney injury): Code(s): N17.9 - Acute kidney failure, unspecified Status: Acute Assessment and Plan: * as noted on admission - creatinine of 3.32mg/dl * came down to 2.9mg/dl transiently * presumed etiology likely secondary to acute infection - right great toe diabetic foot ulcer + cellulitis * however, cannot discount an element of CKD progression * evaluation to date noted: * renal u/s without hydro but concerning for renal mass * urine electrolytes pre-renal * urine eosinophils noted * UA (from 10/07) suggestive of infection -- culture Annie (but low CFU) * proteinuria noted * CPK normal * renal scan suggestive of ATN * holding diuretic therapy for now * on sodium bicarbonate for acidosis * remains at risk for [employer]/dialysis given trend of labs.... * consider renal biopsy? * follow repeat labs and UOP (2) Chronic kidney disease, stage IV (severe): Code(s): N18.4 - Chronic kidney disease, stage 4 (severe) Status: Chronic Assessment and Plan: * baseline creatinine has been running 2.3 - 2.7mg/dl in the last few years * however, last creatinine up to 2.86mg/dl in July 2024 * due to diabetes, hypertension, vascular disease, (CAD + CHF + hyperlipidemia + PVD), and age * follows with Dr. Caprice Gusman for managment of his chronic kidney disease (3) Diabetic foot ulcer: Code(s): E11.621 - Type 2 diabetes mellitus with foot ulcer; L97.509 - Non-pressure chronic ulcer of other part of unspecified foot with unspecified severity Status: Acute Assessment and Plan: * as noted on admission * poor wound healing noted since injury * X-ray with right great toe fracture * complicated by cellulitis of right great toe * s/p right great toe amputation by Surgery (on 10/06) * culture data noted * blood cultures negative * would culture with Staph aureus * on antibiotics * local wound care (4) COVID: Code(s): U07.1 - COVID-19 Status: Acute Assessment and Plan: * as noted by recent testing * no evidence of hypoxia * possibly playing a role with #1(?) * continue supportive care (5) Diastolic dysfunction: Onset Date: 03/2022 Code(s): I51.89 - Other ill-defined heart diseases Status: Chronic Assessment and Plan: * appears compensated at this time * home diuretic therapy on hold due to #1 * follow volume/respiratory status (6) Anemia: Code(s): D64.9 - Anemia, unspecified Status: Chronic Assessment and Plan: * presumably related to CKD from some contributions from JUAN CARLOS, acute infection, and recent operative procedure * follow trend of H/H * no need for TAMIKO at this time (7) Urinary tract infection: Code(s): N39.0 - Urinary tract infection, site not specified Status: Acute Assessment and Plan: * recent UA (10/07) suggestive * urine culture x 2 with low CFU Annie (8) Hypertension: Code(s): I10 - Essential (primary) hypertension Status: Chronic Assessment and Plan: * reasonable control at this time * follow trend of hemodynamics (9) Renal mass, right: Code(s): N28.89 - Other specified disorders of kidney and ureter Status: Acute Assessment and Plan: * as noted on renal ultrasound * Urology recommendations noted (10) Type 2 diabetes mellitus with diabetic polyneuropathy: Code(s): E11.42 - Type 2 diabetes mellitus with diabetic polyneuropathy Status: Acute Assessment and Plan: * follow accu-checks * brittle control noted - last HgbA1c noted * glycemic control per hospitalist Long extensive discussion (greater than 25 minutes) with the patient regarding his worsening renal function and rising BUN and symptoms and her somewhat suggestive of possible early uremia; I discussed the possibility of doing a trial of renal replacement therapy/dialysis to see if this improves his symptoms and possibly help take the burden of his kidneys with the hope that his renal function might improve down the road that that that he appeared to voice understanding is willing to proceed with dialysis. Will ask Surgery to placed dialysis catheter. Will continue to follow. L Subjective Date/time seen: 10/16/24 13:40 Interval history: Follow-up for acute kidney injury/acute renal failure on chronic kidney disease. Feeling okay at the time of my visit but reports at other times he does not feel very well; renal function/creatinine continues to deteriorate despite conservative therapy; still making some urine; no apparent issues/events overnight or earlier this AM. Exam 2 Narrative: General: elderly WD/WN male in NAD Heart: normal S1 and S2; no rub Lungs: clear to auscultation Abdomen: soft, nontender, nondistended, positive bowel sounds Extremities: no cyanosis or clubbing; trace edema Skin: dressings over right foot noted Objective Data Vital Signs Vital Signs: Vital Signs - 24 hr 10/15/24 16:00 10/15/24 20:00 10/15/24 20:00 Temperature 98.2 F 98.1 F Pulse Rate 75 56 L Respiratory Rate 20 18 Blood Pressure 138/87 144/75 H Pulse Oximetry 99 100 Oxygen Delivery Room Air 10/16/24 04:00 10/16/24 08:00 10/16/24 12:00 Temperature 99.0 F 98.5 F 97.6 F Pulse Rate 63 60 63 Respiratory Rate 20 20 20 Blood Pressure 141/75 H 143/68 H 144/66 H Pulse Oximetry 98 99 99 Oxygen Delivery Intake/Output Intake/Output: Intake & Output 10/13/24 10/14/24 10/15/24 10/16/24 23:59 23:59 23:59 23:59 Intake Total 1370 2017 2570 1030 Output Total 450 450 Balance 920 1567 2570 1030 Meds/Results Medications: Active Medications Generic Name Dose Route Start Last Admin Trade Name Freq PRN Reason Stop Dose Admin Acetaminophen 650 mg 10/02/24 16:55 10/12/24 00:01 Acetaminophen 325 Mg Tablet PO 650 mg Q4H PRN Administration Mild Pain (1-3) or Fever Albuterol 2.5 mg 10/12/24 13:19 Albuterol Sulfate Neb 2.5 Mg/3 Ml Inh INHALATION Q4HRT PRN Shortness Of Breath Amoxicillin/Clavulanate Potassium 1 tablet 10/06/24 21:00 10/16/24 09:58 Amoxicillin/Clavulanate K 500-125 Mg Tab PO 10/20/24 21:01 1 tablet Q12HR TAMIKA Administration Aspirin 81 mg 10/03/24 09:00 10/16/24 09:58 Aspirin 81 Mg Enteric Tablet PO 81 mg QAM TAMIKA Administration Atorvastatin Calcium 80 mg 10/03/24 09:00 10/16/24 09:59 Atorvastatin 40 Mg Tablet PO 80 mg DAILY TAMIKA Administration Bumetanide 0.5 mg 10/03/24 09:00 10/08/24 08:32 Bumetanide 0.5 Mg Tablet PO 0.5 mg DAILY TAMIKA Administration Buspirone HCl 10 mg 10/03/24 09:00 10/16/24 09:58 Buspirone Hcl 10 Mg Tablet PO 10 mg BID TAMIKA Administration Calcitriol 0.25 mcg 10/03/24 09:00 10/15/24 08:52 Calcitriol 0.25 Mcg Capsule PO 0.25 mcg [id number] TAMIKA Administration Dextrose 12.5 gm 10/02/24 17:35 Dextrose 50% 25 Gm/50 Ml Syringe IV PUSH PRN PRN Hypoglycemia Protocol Docusate Sodium 100 mg 10/03/24 09:00 10/16/24 10:02 Docusate Sodium 100 Mg Capsule PO Not Given BID TAMIKA Ezetimibe 10 mg 10/03/24 09:00 10/16/24 09:58 Ezetimibe 10 Mg Tablet PO 10 mg DAILY TAMIKA Administration Empagliflozin 25 mg 10/03/24 09:00 10/16/24 09:59 Empagliflozin 25 Mg Tablet BY MOUTH 25 mg QAM TAMIKA Administration Fluticasone Propionate 1 spray 10/11/24 21:00 10/16/24 10:02 Fluticasone Propionate 0.05% Na Spr 16 Gm Btl (*Bkc) NASAL 1 spray Q12HR TAMIKA Administration Glucagon 1 mg 10/02/24 17:35 Glucagon For Inj 1 Mg Vial IM PRN PRN Hypoglycemia Protocol Glucose 15 gm 10/02/24 17:35 10/13/24 17:38 Glucose Oral Gel 15 Gm Of Glucse In 37.5 Gm Tube PO 15 gm PRN PRN Administration Hypoglycemia Protocol Guaifenesin 600 mg 10/15/24 12:30 10/16/24 09:59 Guaifenesin 12 Hr 600 Mg Tabcr PO 10/22/24 12:29 600 mg Q12HR TAMIKA Administration Heparin Sodium (Porcine) 5,000 units 10/14/24 21:00 10/16/24 10:02 Heparin Sodium 5,000 Units/Ml Vial SUB-Q 5,000 units Q12HR TAMIKA Administration Dextrose 1,000 mls @ 100 mls/hr 10/02/24 17:35 Dextrose 5% 1,000 Ml IVPB PRN PRN Hypoglycemia Protocol Insulin Aspart 3 - 6 units 10/03/24 08:00 10/16/24 13:37 Insulin Aspart (*Bkc) 100 Units/Ml SUB-Q Not Given TIDWM [facility] Protocol Insulin Aspart 1 - 3 units 10/02/24 21:00 10/15/24 21:10 Insulin Aspart (*Bkc) 100 Units/Ml SUB-Q Not Given HS [facility] Protocol Insulin Human Regular 25 units 10/03/24 13:00 10/16/24 13:40 Insulin Human Regular (*Bkc) 100 Units/Ml SUB-Q Not Given DAILY@1200 [facility] Insulin Human Regular 25 units 10/16/24 09:35 10/16/24 09:59 Insulin Human Regular (*Bkc) 100 Units/Ml SUB-Q 25 units DAILY@0800 [facility] Administration Isosorbide Mononitrate 90 mg 10/03/24 09:00 10/16/24 09:58 Isosorbide Mononitrate 30 Mg Tab.Er.24h PO 90 mg DAILY [facility] Administration Loperamide HCl 2 mg 10/13/24 13:26 Loperamide Hcl 2 Mg Capsule PO PRN PRN Diarrhea Miscellaneous Information 1 each 10/15/24 09:00 Oxycodone Needs To Be Renewed Or It Will Automatically Discontinue. XX 11/14/24 08:59 DAILY [facility] Ondansetron HCl 4 mg 10/02/24 17:35 Ondansetron Inj 4 Mg/2 Ml Vial IV PUSH Q6H PRN Nausea And Vomiting Oxycodone HCl 5 mg 10/06/24 14:41 Oxycodone Hcl (*Crx) 5 Mg Tab Ir PO ONCE PRN Pain Pantoprazole Sodium 40 mg 10/03/24 21:00 10/15/24 21:10 Pantoprazole 40 Mg Tablet PO 40 mg QHS [facility] Administration Polyethylene Glycol 17 gm 10/05/24 14:48 Polyethylene Glycol 3350 17 Gm Powd.Pack PO QAM PRN Constipation Propranolol HCl 80 mg 10/03/24 09:00 10/16/24 13:36 Propranolol Hcl 40 Mg Tablet PO 80 mg TID [facility] Administration Sertraline HCl 50 mg 10/02/24 23:10 10/16/24 09:59 Sertraline Hcl 50 Mg Tablet BY MOUTH 50 mg DAILY [facility] Administration Sodium Bicarbonate 1,300 mg 10/14/24 17:05 10/16/24 13:36 Sodium Bicarbonate Tab 650 Mg Tablet PO 1,300 mg TID TAMIKA Administration Sodium Chloride 1 spray 10/11/24 16:22 10/12/24 00:02 Saline 0.65% Fabiano Soln 44 Ml Btl NASAL 1 spray Q6HR PRN Administration Congestion Radiology Results: ITS Impressions Foot X-Ray 10/02/24 14:32 IMPRESSION: 1. Nondisplaced fracture of lateral aspect of head of first proximal phalanx. 2. Nondisplaced stellate fracture of tuft of first distal phalanx. 3. Mild polyarticular osteoarthritis. Renal Ultrasound 10/07/24 11:52 IMPRESSION: 1. 3.4 cm mixed solid and cystic lesion at the upper pole the right kidney with 2 cm solid nodular component which is concerning for renal cell carcinoma. Recommend urologic consultation and further evaluation with pre and postcontrast MRI or CT. 2. No hydronephrosis in either kidney. 3. Trabeculated bladder wall which can be seen with neurogenic bladder or chronic outlet obstruction such as in the setting of prostatomegaly. Renal Scan Nuclear Medicine 10/13/24 14:38 IMPRESSION: 1. Symmetric kidney function. 2. Delayed uptake and clearance of activity from the kidneys, consistent with decreased kidney function. Chest X-Ray 10/13/24 15:10 IMPRESSION: No acute cardiopulmonary process. Labs Labs: Laboratory Tests 10/16/24 06:22 10/16/24 06:22 Calcium 6.7 L Phosphorus 8.5 H Magnesium 2.3 Total Bilirubin 0.8 AST 64 H ALT 62 H Alkaline Phosphatase 190 H Total Protein 6.0 L Albumin 2.5 L
[2024-10-16 16:00] VITALS: BP 138/74; PULSE 60; RESP 18; TEMP 36.6; O2SAT 98
--- NOTE | 2024-10-16 16:16 | P.PNGS_ITS ---
Progress Note: A&P Assessment and Plan (1) Acute on chronic renal failure: Code(s): N17.9 - Acute kidney failure, unspecified; N18.9 - Chronic kidney disease, unspecified Status: Acute Assessment and Plan: * Acute on chronic renal failure postoperatively with rising creatinine. Nephrology following and is requesting placement of a tunneled hemodialysis catheter. Description of the procedure, risks, benefits, expected outcomes, and expected recovery were discussed with the patient in detail. He agrees with proceeding. Will make him NPO after midnight and add him onto the surgery schedule tomorrow. (2) Diabetic foot ulcer: Code(s): E11.621 - Type 2 diabetes mellitus with foot ulcer; L97.509 - Non-pressure chronic ulcer of other part of unspecified foot with unspecified severity Status: Acute Assessment and Plan: * Healing well, continue local wound care. (3) Cellulitis of great toe, right: Code(s): L03.031 - Cellulitis of right toe Status: Acute (4) Fracture of right great toe: Code(s): S92.401A - Displaced unspecified fracture of right great toe, initial encounter for closed fracture Status: Acute Plan I have discussed the patient's case and plan of care with Dr. Lema. Subjective Subjective Date/Time Seen: 10/16/24 16:16 Interval history: We were called back for consultation by Nephrology for placement of a tunneled hemodialysis catheter. He has continued to have worsening acute on chronic renal failure postoperatively. He denies having dialysis in the past. He has moved rooms since last seen due to testing positive for COVID, and is currently on droplet precautions. Review of Systems Review of Systems: All systems reviewed & are unremarkable except as noted in HPI and below Exam Const: General: comfortable and no acute distress Orientation/consciousness: patient oriented x3 HENMT: Head: normocephalic and atraumatic Chest: Chest palpation & inspection: normal inspection of the chest Resp: Effort & Inspection: normal respiratory effort Auscultation: clear to auscultation bilaterally Cardio: Rate: regular rate Rhythm: regular rhythm Peripheral pulses: Peripheral pulses 2+ throughout GI: Inspection: non-distended GI Palp: Yes Soft to palpation, No Tenderness to palpation present (GI), No Guarding due to palpation present (GI) and No Rebound tenderness present Auscultation: normal bowel sounds Skin: General skin exam: normal color Neuro: General: moves all extremities Extrem: General: no calf tenderness Other: Right foot gauze dressing dry and intact Psych: Mental Status: mental status grossly normal Insight: Good insight present (Psych) Judgement: Good judgement present (Psych) Objective Data Vital Signs Vital Signs: Vital Signs - 24 hr 10/15/24 20:00 10/15/24 20:00 10/16/24 04:00 Temperature 98.1 F 99.0 F Pulse Rate 56 L 63 Respiratory Rate 18 20 Blood Pressure 144/75 H 141/75 H Pulse Oximetry 100 98 Oxygen Delivery Room Air 10/16/24 08:00 10/16/24 12:00 Temperature 98.5 F 97.6 F Pulse Rate 60 63 Respiratory Rate 20 20 Blood Pressure 143/68 H 144/66 H Pulse Oximetry 99 99 Oxygen Delivery Intake/Output Intake/Output: Intake & Output 10/13/24 10/14/24 10/15/24 10/16/24 23:59 23:59 23:59 23:59 Intake Total 1370 2017 2570 1030 Output Total 450 450 Balance 920 1567 2570 1030 Meds/Results Medications: Active Medications Generic Name Dose Route Start Last Admin Trade Name Freq PRN Reason Stop Dose Admin Acetaminophen 650 mg 10/02/24 16:55 10/12/24 00:01 Acetaminophen 325 Mg Tablet PO 650 mg Q4H PRN Administration Mild Pain (1-3) or Fever Albuterol 2.5 mg 10/12/24 13:19 Albuterol Sulfate Neb 2.5 Mg/3 Ml Inh INHALATION Q4HRT PRN Shortness Of Breath Amoxicillin/Clavulanate Potassium 1 tablet 10/06/24 21:00 10/16/24 09:58 Amoxicillin/Clavulanate K 500-125 Mg Tab PO 10/20/24 21:01 1 tablet Q12HR TAMIKA Administration Aspirin 81 mg 10/03/24 09:00 10/16/24 09:58 Aspirin 81 Mg Enteric Tablet PO 81 mg QAM TAMIKA Administration Atorvastatin Calcium 80 mg 10/03/24 09:00 10/16/24 09:59 Atorvastatin 40 Mg Tablet PO 80 mg DAILY TAMIKA Administration Bumetanide 0.5 mg 10/03/24 09:00 10/08/24 08:32 Bumetanide 0.5 Mg Tablet PO 0.5 mg DAILY TAMIKA Administration Buspirone HCl 10 mg 10/03/24 09:00 10/16/24 09:58 Buspirone Hcl 10 Mg Tablet PO 10 mg BID TAMIKA Administration Calcitriol 0.25 mcg 10/03/24 09:00 10/15/24 08:52 Calcitriol 0.25 Mcg Capsule PO 0.25 mcg [id number]@0900 TAMIKA Administration Dextrose 12.5 gm 10/02/24 17:35 Dextrose 50% 25 Gm/50 Ml Syringe IV PUSH PRN PRN Hypoglycemia Protocol Docusate Sodium 100 mg 10/03/24 09:00 10/16/24 10:02 Docusate Sodium 100 Mg Capsule PO Not Given BID TAMIKA Ezetimibe 10 mg 10/03/24 09:00 10/16/24 09:58 Ezetimibe 10 Mg Tablet PO 10 mg DAILY TAMIKA Administration Empagliflozin 25 mg 10/03/24 09:00 10/16/24 09:59 Empagliflozin 25 Mg Tablet BY MOUTH 25 mg QAM TAMIKA Administration Fluticasone Propionate 1 spray 10/11/24 21:00 10/16/24 10:02 Fluticasone Propionate 0.05% Na Spr 16 Gm Btl (*Bkc) NASAL 1 spray Q12HR TAMIKA Administration Glucagon 1 mg 10/02/24 17:35 Glucagon For Inj 1 Mg Vial IM PRN PRN Hypoglycemia Protocol Glucose 15 gm 10/02/24 17:35 10/13/24 17:38 Glucose Oral Gel 15 Gm Of Glucse In 37.5 Gm Tube PO 15 gm PRN PRN Administration Hypoglycemia Protocol Guaifenesin 600 mg 10/15/24 12:30 10/16/24 09:59 Guaifenesin 12 Hr 600 Mg Tabcr PO 10/22/24 12:29 600 mg Q12HR TAMIKA Administration Heparin Sodium (Porcine) 5,000 units 10/14/24 21:00 10/16/24 10:02 Heparin Sodium 5,000 Units/Ml Vial SUB-Q 5,000 units Q12HR TAMIKA Administration Dextrose 1,000 mls @ 100 mls/hr 10/02/24 17:35 Dextrose 5% 1,000 Ml IVPB PRN PRN Hypoglycemia Protocol Insulin Aspart 3 - 6 units 10/03/24 08:00 10/16/24 13:37 Insulin Aspart (*Bkc) 100 Units/Ml SUB-Q Not Given TIDWM [facility] Protocol Insulin Aspart 1 - 3 units 10/02/24 21:00 10/15/24 21:10 Insulin Aspart (*Bkc) 100 Units/Ml SUB-Q Not Given HS [facility] Protocol Insulin Human Regular 25 units 10/03/24 13:00 10/16/24 13:40 Insulin Human Regular (*Bkc) 100 Units/Ml SUB-Q Not Given DAILY@1200 [facility] Insulin Human Regular 25 units 10/16/24 09:35 10/16/24 09:59 Insulin Human Regular (*Bkc) 100 Units/Ml SUB-Q 25 units DAILY@0800 [facility] Administration Isosorbide Mononitrate 90 mg 10/03/24 09:00 10/16/24 09:58 Isosorbide Mononitrate 30 Mg Tab.Er.24h PO 90 mg DAILY [facility] Administration Loperamide HCl 2 mg 10/13/24 13:26 Loperamide Hcl 2 Mg Capsule PO PRN PRN Diarrhea Miscellaneous Information 1 each 10/15/24 09:00 Oxycodone Needs To Be Renewed Or It Will Automatically Discontinue. XX 11/14/24 08:59 DAILY [facility] Ondansetron HCl 4 mg 10/02/24 17:35 Ondansetron Inj 4 Mg/2 Ml Vial IV PUSH Q6H PRN Nausea And Vomiting Pantoprazole Sodium 40 mg 10/03/24 21:00 10/15/24 21:10 Pantoprazole 40 Mg Tablet PO 40 mg QHS TAMIKA Administration Polyethylene Glycol 17 gm 10/05/24 14:48 Polyethylene Glycol 3350 17 Gm Powd.Pack PO QAM PRN Constipation Propranolol HCl 80 mg 10/03/24 09:00 10/16/24 13:36 Propranolol Hcl 40 Mg Tablet PO 80 mg TID [facility] Administration Sertraline HCl 50 mg 10/02/24 23:10 10/16/24 09:59 Sertraline Hcl 50 Mg Tablet BY MOUTH 50 mg DAILY [facility] Administration Sodium Bicarbonate 1,300 mg 10/14/24 17:05 10/16/24 13:36 Sodium Bicarbonate Tab 650 Mg Tablet PO 1,300 mg TID TAMIKA Administration Sodium Chloride 1 spray 10/11/24 16:22 10/12/24 00:02 Saline 0.65% Fabiano Soln 44 Ml Btl NASAL 1 spray Q6HR PRN Administration Congestion Radiology Results: ITS Impressions Foot X-Ray 10/02/24 14:32 IMPRESSION: 1. Nondisplaced fracture of lateral aspect of head of first proximal phalanx. 2. Nondisplaced stellate fracture of tuft of first distal phalanx. 3. Mild polyarticular osteoarthritis. Renal Ultrasound 10/07/24 11:52 IMPRESSION: 1. 3.4 cm mixed solid and cystic lesion at the upper pole the right kidney with 2 cm solid nodular component which is concerning for renal cell carcinoma. Recommend urologic consultation and further evaluation with pre and postcontrast MRI or CT. 2. No hydronephrosis in either kidney. 3. Trabeculated bladder wall which can be seen with neurogenic bladder or chronic outlet obstruction such as in the setting of prostatomegaly. Renal Scan Nuclear Medicine 10/13/24 14:38 IMPRESSION: 1. Symmetric kidney function. 2. Delayed uptake and clearance of activity from the kidneys, consistent with decreased kidney function. Chest X-Ray 10/13/24 15:10 IMPRESSION: No acute cardiopulmonary process. Labs Labs: Laboratory Results - last 24 hr 10/15/24 10/15/24 10/16/24 16:43 21:05 06:22 WBC 6.6 RBC 3.23 L Hgb 9.7 L Hct 30.2 L MCV 93.5 MCH 30.0 MCHC 32.1 RDW 14.3 Plt Count 214 MPV 10.9 H Immature Gran % (Auto) 0.6 H Neut % (Auto) 58.2 Lymph % (Auto) 29.3 Hickman % (Auto) 10.9 H Eos % (Auto) 0.8 Baso % (Auto) 0.2 Lymph # (Auto) 1.94 Hickman # (Auto) 0.7 H Eos # (Auto) 0.1 Baso # (Auto) 0.0 Abs Immat Gran (auto) 0.04 H Absolute Neuts (auto) 3.9 Absolute Nucleated RBC 0.000 Nucleated RBC % 0.0 Sodium 136 L Potassium 4.4 Chloride 107 Carbon Dioxide 14 L Anion Gap 15 H BUN 89 H Creatinine 6.43 H Estim Creat Clear Calc 14 Estimated GFR 9 L Glucose 131 H POC Capillary Glucose 71 132 H Calcium 6.7 L Phosphorus 8.5 H Magnesium 2.3 Total Bilirubin 0.8 AST 64 H ALT 62 H Alkaline Phosphatase 190 H Total Protein 6.0 L Albumin 2.5 L 10/16/24 10/16/24 07:41 11:44 WBC RBC Hgb Hct MCV MCH MCHC RDW Plt Count MPV Immature Gran % (Auto) Neut % (Auto) Lymph % (Auto) Hickman % (Auto) Eos % (Auto) Baso % (Auto) Lymph # (Auto) Hickman # (Auto) Eos # (Auto) Baso # (Auto) Abs Immat Gran (auto) Absolute Neuts (auto) Absolute Nucleated RBC Nucleated RBC % Sodium Potassium Chloride Carbon Dioxide Anion Gap BUN Creatinine Estim Creat Clear Calc Estimated GFR Glucose POC Capillary Glucose 153 H 166 H Calcium Phosphorus Magnesium Total Bilirubin AST ALT Alkaline Phosphatase Total Protein Albumin
[2024-10-16 16:56] LABS: Glucose Point of Care 90 mg/dl (65-105)
[2024-10-16 20:00] VITALS: BP 139/64; PULSE 61; RESP 16; TEMP 36.6; O2SAT 98
[2024-10-16 20:36] LABS: Glucose Point of Care 101 mg/dl (65-105)
[2024-10-16] MEDS: PANTOPRAZOLE 40 MG TABLET PO (21:11)
[2024-10-16 23:37] VITALS: BP 142/67; PULSE 63; RESP 18; TEMP 36.7; O2SAT 99
[2024-10-17] VITALS (21 sets, daily range): BP systolic 124–178; BP diastolic 67–88; PULSE 58–68; RESP 14–20; TEMP 2–37.4; O2SAT 94–100
[2024-10-17] MEDS: ONDANSETRON INJ 4 MG/2 ML VIAL IV PUSH (06:50)
[2024-10-17 07:56] LABS: Glucose Point of Care 133 mg/dl (65-105)
[2024-10-17 08:04] LABS: Basophils Percent Auto 0.1 % (0.2-1.2); Eosinophils Percent Auto 0.3 % (0-4.4); Hematocrit 28.3 % (42.0-52.0); Hemoglobin 9.3 g/dL (14.0-18.0); Immature Granulocyte Absolute 0.04 K/mm3 (0.00-0.031); Immature Granulocyte Percent A 0.6 % (0-0.5); Lymphocytes Absolute Auto 1.35 K/mm3 (0.9-3.2); Lymphocytes Percent Auto 20.1 % (18.3-44.2); Mean Corpuscular HGB Conc 32.9 g/dl (32-36); Mean Corpuscular Hemoglobin 30.4 pg (26-34); Mean Corpuscular Volume 92.5 fl (80-100); Monocytes Absolute Auto 0.7 K/mm3 (0.1-0.6); Monocytes Percent Auto 9.7 % (2.6-8.5); Neutrophils Absolute Auto 4.6 K/mm3 (1.3-6.7); Neutrophils Percent Auto 69.2 % (45.5-73.1); Platelet Count Result 194 k/mm3 (150-375); Red Blood Count 3.06 M/mm3 (4.6-6.20); Red Cell Distribution Width 14.5 % (11.5-14.5); White Blood Count 6.7 K/mm3 (4.5-10.0)
[2024-10-17 09:14] LABS: Alanine Aminotransferase 46 U/L (6-50); Albumin Level 2.4 g/dL (3.5-5.1); Alkaline Phosphatase 157 U/L (38-126); Anion Gap 15 mmol/L (4-12); Aspartate Amino Transferase 41 U/L (17-59); Bilirubin,Total 0.9 mg/dL (0.2-1.3); Blood Urea Nitrogen 93 mg/dL (9-20); Calcium 6.6 mg/dL (8.4-10.2); Carbon Dioxide 13 mmol/L (22-30); Chloride 108 mmol/L (98-107); Estimated CRCL calculation 13 ml/min; Estimated Glomerular Filt Rate 8; Glucose 129 mg/dL (65-110); Magnesium 2.3 mg/dL (1.6-2.3); Phosphorus 8.7 mg/dL (2.5-4.5); Potassium 4.6 mmol/L (3.4-5.0); Sodium 136 mmol/L (137-145)
[2024-10-17] MEDS: INSULIN HUMAN REGULAR (*BKC) 100 UNITS/ML 25 UNITS SUB-Q (10:14)
[2024-10-17] MEDS: FLUTICASONE PROPIONATE 0.05% NA SPR 16 GM BTL (*BKC) 1 SPRAY NASAL ×2 (10:17→22:32)
[2024-10-17] MEDS: CALCIUM GLUC 2,000 MG/NS 100ML 2,000 MG/100 ML BAG 100 MG IVPB (10:18)
[2024-10-17 12:03] LABS: Glucose Point of Care 127 mg/dl (65-105)
--- NOTE | 2024-10-17 12:27 | PCNWS ---
Weekly nutritional screen. Patient is tolerating current Diabetic, low K+ diet with adequate intakes. No weight loss reported. No nutritional recommendations at this time.
--- NOTE | 2024-10-17 12:42 | P.PNIM_ITS ---
Progress Note: A&P Assessment and Plan (1) Diabetic foot ulcer: Code(s): E11.621 - Type 2 diabetes mellitus with foot ulcer; L97.509 - Non-pressure chronic ulcer of other part of unspecified foot with unspecified severity Status: Acute Assessment and Plan: patient reports injury to right great toe with worsening symptoms patient has severe diabetes and CAD with poor wound healing initial x-ray did show right great toe was also fractured * CRP elevate no WBC * Surgery consulted if debridement or amputation needed * blood cultures no growth today * wound culture ordered * NPO in case of possible procedure * IV cefepime, vancomycin and Flagyl * Will need close glucose control for any type of wound healing patient is a severely uncontrolled diabetic on high-dose insulin 10/04: * Day 1 post-op * Blood cultures NGTD * inoperative wound culture pending * continue with current ABX therapy will de-escalate with Culture and sensitivity * Plan is surgery 10/06 for amputation due to exposed fractured toe 10/05: * Postop day 2 * normal wbc no fever * blood cultures NGTD * wound culture still pending * surgery tomorrow hold morning Lovenox 10/06 10/06: * Amputation 10/06 * Aerobic culture grew Staphylococcus aureus * De-escalated ABX to doxycycline Augmentin times 14 days. 10/07: * Post-op day 2 * Minimal pain * ABX de-escalated based on sensitivities MSSA * 10/08 post op day 3 no specific complaints awaiting PT evaluation to return home with HH is what pt wants 10/09 - will continue current Augmentin and wound treatment plan 10/10 - will continue current plan of treatment 10/12/24: * Continue Augmentin as ordered. * Continue dressing changes. 10/13/24: * Stable without any complaints of pain. Normal WBC's. * Continue dressings as ordered and Augmentin. 10/14/24: * Stable. * Continue Augmentin through 10/20/24. * Pt reports no pain. * No lab evidence of acute infection. 10/15/24 * Stable. * Continue Augmentin through 10/20/24. * Pt reports no pain. * No lab evidence of acute infection. 10/16/24: * Stable. * Continue Augmentin through 10/20/24. * Pt reports no pain. * No lab evidence of acute infection. 10/17/24: * Stable. * Continue Augmentin through 10/20/24. * Pt reports no pain. * No lab evidence of acute infection. (2) Fracture of right great toe: Code(s): S92.401A - Displaced unspecified fracture of right great toe, initial encounter for closed fracture Status: Acute Assessment and Plan: * Nondisplaced fracture of lateral aspect of head of first proximal phalanx. * Nondisplaced stellate fracture of tuft of first distal phalanx. * Orthopedics consulted * Pain management * elevate at rest * Great toe was Amputated - wound management doing well. 10/12/24: * See #1 - s/p amputation (3) Chronic kidney disease, stage 3b: Code(s): N18.32 - Chronic kidney disease, stage 3b Status: Acute Assessment and Plan: Acute on chronic renal failure Baseline around mid 2.5 * CR 3.32 POA * Currently on vancomycin pharmacy to dose will need to deescalate cultures * Avoid nephrotoxic drugs. * Monitor antihypertensive drug therapy. * Avoid NSAIDs. * Routine CMP monitoring GFR. * Monitor electrolytes especially potassium. * Antibiotic doses depending on creatinine clearance. * Pharmacy does medications. 10/07: * Cr continues to trend up 3.37 today * de-escalated ABX therapy and had IV fluids with no improvement * Nephrology consulted for further evaluation or recommendation baseline mid 2's * Renal US pending 10/08 creat is 4 nephrology rounding see recommendations 10/09 - creat - 4.30, BUN 84, GFR 14. Nephrology aware and monitoring. --> will give 1 liter of IV fluids today 10/10 - creat - 4.57, BUN 81, GFR 13, Nephrology aware and monitoring --> Nephrology to follow. Stopped Bumex prior, worsening Renal function. creat - 5.11, BUN 84, GFR 11, K- 5.1 - Nephrology following as well. 10/12/24: * Upward trend in Cr/BUN continues with labs showing 5.29/91 today. * Nephrology is following. * Continue to hold Bumex. * Minimize/eliminate renal offending agents. * Continue to trend renal function with daily labs. 10/13/24: * Acute on chronic progression vs. JUAN CARLOS from COVID * Nephrology continues to follow. * Holding Bumex. * Continue to trend. * NM Renal scan ordered for today. 10/14/24: * NM renal scan shows normal symmetric kidney function and delayed uptake and clearance of activity from within the kidneys, consistent with decreased kidney function. * Interval increase in creatinine to 5.71 today. (3.32 on admission) * Nephrology is following. Etiology uncertain but considers COVID, DM, HTN, Vascular disease and age. * Continue to hold diuretics, but pt is appearing to have some extra fluid on board. * Continue to trend labs. * Minimize renal offending agents. * Low Potassium diet * IVF challenge given again at request of Nephrology. 10/15/24: * NM renal scan shows normal symmetric kidney function and delayed uptake and clearance of activity from within the kidneys, consistent with decreased kidney function. * Creatinine 6.04 today (3.32 on admission). * Nephrology is following. Etiology uncertain but considers COVID, DM, HTN, Vasc ular disease and age. * Continue to hold diuretics, but pt is appearing to have some extra fluid on board. * Continue to trend labs. * Minimize renal offending agents. * Low Potassium diet 10/16/24: * NM renal scan shows normal symmetric kidney function and delayed uptake and clearance of activity from within the kidneys, consistent with decreased kidney function. * Creatinine 6.43 today (3.32 on admission). * Nephrology is following. Etiology uncertain but considers COVID, DM, HTN, Vascular disease and age. * Continue to hold diuretics, but pt is appearing to have some extra fluid on board. * Continue to trend labs. * Minimize renal offending agents. * Low Potassium diet * NPO after midnight for hemodialysis catheter placement for patient to start hemodialysis. 10/17/24: * NM renal scan shows normal symmetric kidney function and delayed uptake and clearance of activity from within the kidneys, consistent with decreased kidney function. * Creatinine 6.84 today (3.32 on admission). * Nephrology is following. Etiology uncertain but considers COVID, DM, HTN, Vascular disease and age. * Continue to hold diuretics, but pt is appearing to have some extra fluid on board. * Continue to trend labs. * Minimize renal offending agents. * Low Potassium diet * NPO today for hemodialysis catheter placement for patient to start hemodialysis. (4) Type 2 diabetes mellitus with diabetic polyneuropathy: Code(s): E11.42 - Type 2 diabetes mellitus with diabetic polyneuropathy Status: Acute Assessment and Plan: * Diabetic diet * Holding semaglutide * Hemoglobin A1c pending * Accuchecks ACHS * SSI moderate dosing added * Patient is hard to control diabetic on several diabetic medication, and high- dose insulin started conversion to U 100 while hospitalized and adjust as need currently 65u/25u/10u * Continue Jardiance and Zetia 10/12/24: * Continue current glycemic regimen. * Monitor and adjust as necessary. 10/13/24: * Fasting glucose this AM is 149. * No further adjustments to insulin dosing. * Continue current regimen for management. 10/14/24: * Current regimen is managing well. * A1C is 7.9. * Continue Diabetic/Low potassium diet. 10/15/24: * Current regimen is managing well. * Continue Diabetic/Low potassium diet. 10/16/24: * Adjusted morning regular insulin to 25 units. * Continue Diabetic/Low potassium diet. 10/17/24: * NPO this morning for hemodialysis catheter placement. * Monitor blood sugars. * Hypoglycemic protocol. * Follow diabetic regimen once able to eat. (5) Diastolic dysfunction: Onset Date: 03/2022 Code(s): I51.89 - Other ill-defined heart diseases Status: Chronic Assessment and Plan: * patient does not appear to be in exacerbation * stopped Bumex 10/12/24: * Continues to appear euvolemic. 10/13/24: * Pt with mild edema to the BUE and the BLE, no pitting. Will need continued close monitoring. Continue to hold Bumex. 10/15/24 * Creatinine 6.04, Bumex on hold. 10/16/24: * Creatinine 6.43, Bumex on hold. 10/17/24: * Creatinine 6.84, Bumex on hold. (6) Presence of aortocoronary bypass graft: Onset Date: 10/2017 Code(s): Z95.1 - Presence of aortocoronary bypass graft Status: Acute Assessment and Plan: * Continue Inderal, aspirin, Lipitor, an imdur, Atorvastatin 10/13/24: * Continue current meds. (7) COVID: Code(s): U07.1 - COVID-19 Status: Acute Assessment and Plan: 10/12/24: * Supportive care. * No steroids or other antivirals ordered in setting of no supplemental oxygen required. * PRN nebs ordered. 10/13/24: * Continue supportive care. (8) Renal mass, right: Code(s): N28.89 - Other specified disorders of kidney and ureter Status: Acute Assessment and Plan: 10/12/24: * A 3.4 cm mixed solid and cystic lesion at the upper pole the right kidney with 2 cm solid nodular component which is concerning for renal cell carcinoma. Recommend urologic consultation and further evaluation with pre and postcontrast MRI or CT. * Unable to do further imaging at this time due to renal function. * Urology and Nephrology following. 10/13/24: * Discussed with Dr. Jacobsen whether or not it is appropriate to inquire about doing a biopsy of the renal mass and whether or not that is contributing to his renal function, but he does not believe that it is contributing. He further notes that if there is concern for possible neoplastic disease, typically the mass is just resected and not biopsied. (9) Transaminitis: Code(s): R74.01 - Elevation of levels of liver transaminase levels Status: Acute Assessment and Plan: 10/14/24: * New during this admission. * Most likely etiology is having COVID. * Continue to trend. * Pt asympotmatic. If any development of pain, N/V then would consider RUQ US/CT abd pelvis. 10/17/24: * Alkaline phosphatase: 157. (10) Hypocalcemia: Code(s): E83.51 - Hypocalcemia Status: Acute Assessment and Plan: 10/17/24: * Calcium 6.6. * Calcium gluconate 2 gram IVPB given. * Monitor level. Plan Subjective Date/time seen: 10/17/24 12:42 Interval history: Patient sitting up in bed. Patient denies chest pain, palpitations, headache, dizziness, nausea, or vomiting. NPO for hemodialysis catheter placement. Review of Systems Review of Systems: All systems reviewed & are unremarkable except as noted in HPI and below Exam Const: General: comfortable and no acute distress Resp: Effort & Inspection: normal respiratory effort Auscultation: clear to auscultation bilaterally Cardio: Rate: regular rate Rhythm: regular rhythm GI: GI Palp: Yes Soft to palpation Auscultation: normal bowel sounds Skin: Wounds: wounds noted (Right great toe amputated with small amount of dry blood on gauze. Healing.) Neuro: Speech: normal speech Extrem: General: pedal edema bilaterally 1+ Psych: Mental Status: mental status grossly normal Affect: normal affect Objective Data Vital Signs Vital Signs: Vital Signs - 24 hr 10/16/24 16:00 10/16/24 20:00 10/16/24 23:37 Temperature 97.9 F 97.9 F 98.1 F Pulse Rate 60 61 63 Respiratory Rate 18 16 18 Blood Pressure 138/74 139/64 142/67 H Pulse Oximetry 98 98 99 10/17/24 03:31 10/17/24 08:22 Temperature 98.4 F 98.6 F Pulse Rate 64 64 Respiratory Rate 14 17 Blood Pressure 145/70 H 143/87 H Pulse Oximetry 100 97 Intake/Output Intake/Output: Intake & Output 10/14/24 10/15/24 10/16/24 10/17/24 23:59 23:59 23:59 23:59 Intake Total 2016 2570 1320 550 Output Total 450 225 400 Balance 1567 2570 1095 150 Meds/Results Medications: Active Medications Generic Name Dose Route Start Last Admin Trade Name Freq PRN Reason Stop Dose Admin Acetaminophen 650 mg 10/02/24 16:55 10/12/24 00:01 Acetaminophen 325 Mg Tablet PO 650 mg Q4H PRN Administration Mild Pain (1-3) or Fever Albuterol 2.5 mg 10/12/24 13:19 Albuterol Sulfate Neb 2.5 Mg/3 Ml Inh INHALATION Q4HRT PRN Shortness Of Breath Amoxicillin/Clavulanate Potassium 1 tablet 10/17/24 12:15 Amoxicillin/Clavulanate K 500-125 Mg Tab PO 10/20/24 09:01 DAILY TAMIKA Amoxicillin/Clavulanate Potassium 1 tablet 10/17/24 12:13 Amoxicillin/Clavulanate K 500-125 Mg Tab PO 10/20/24 23:59 DAILY PRN DIALYSIS Aspirin 81 mg 10/03/24 09:00 10/16/24 09:58 Aspirin 81 Mg Enteric Tablet PO 81 mg QAM TAMIKA Administration Atorvastatin Calcium 80 mg 10/03/24 09:00 10/16/24 09:59 Atorvastatin 40 Mg Tablet PO 80 mg DAILY TAMIKA Administration Bumetanide 0.5 mg 10/03/24 09:00 10/08/24 08:32 Bumetanide 0.5 Mg Tablet PO 0.5 mg DAILY TAMIKA Administration Buspirone HCl 10 mg 10/03/24 09:00 10/16/24 18:01 Buspirone Hcl 10 Mg Tablet PO 10 mg BID TAMIKA Administration Calcitriol 0.25 mcg 10/03/24 09:00 10/15/24 08:52 Calcitriol 0.25 Mcg Capsule PO 0.25 mcg MoWeFr@0900 TAMIKA Administration Dextrose 12.5 gm 10/02/24 17:35 Dextrose 50% 25 Gm/50 Ml Syringe IV PUSH PRN PRN Hypoglycemia Protocol Docusate Sodium 100 mg 10/03/24 09:00 10/16/24 17:59 Docusate Sodium 100 Mg Capsule PO Not Given BID [facility] Ezetimibe 10 mg 10/03/24 09:00 10/16/24 09:58 Ezetimibe 10 Mg Tablet PO 10 mg DAILY TAMIKA Administration Empagliflozin 25 mg 10/03/24 09:00 10/16/24 09:59 Empagliflozin 25 Mg Tablet BY MOUTH 25 mg QAM TAMIKA Administration Fluticasone Propionate 1 spray 10/11/24 21:00 10/17/24 10:17 Fluticasone Propionate 0.05% Na Spr 16 Gm Btl (*Bkc) NASAL 1 spray Q12HR TAMIKA Administration Glucagon 1 mg 10/02/24 17:35 Glucagon For Inj 1 Mg Vial IM PRN PRN Hypoglycemia Protocol Glucose 15 gm 10/02/24 17:35 10/13/24 17:38 Glucose Oral Gel 15 Gm Of Glucse In 37.5 Gm Tube PO 15 gm PRN PRN Administration Hypoglycemia Protocol Guaifenesin 600 mg 10/15/24 12:30 10/16/24 21:11 Guaifenesin 12 Hr 600 Mg Tabcr PO 10/22/24 12:29 600 mg Q12HR TAMIKA Administration Heparin Sodium (Porcine) 5,000 units 10/14/24 21:00 10/17/24 10:18 Heparin Sodium 5,000 Units/Ml Vial SUB-Q Not Given Q12HR [facility] Dextrose 1,000 mls @ 100 mls/hr 10/02/24 17:35 Dextrose 5% 1,000 Ml IVPB PRN PRN Hypoglycemia Protocol Insulin Aspart 3 - 6 units 10/03/24 08:00 10/17/24 10:15 Insulin Aspart (*Bkc) 100 Units/Ml SUB-Q Not Given TIDWM [facility] Protocol Insulin Aspart 1 - 3 units 10/02/24 21:00 10/16/24 21:11 Insulin Aspart (*Bkc) 100 Units/Ml SUB-Q Not Given HS [facility] Protocol Insulin Human Regular 25 units 10/03/24 13:00 10/16/24 13:40 Insulin Human Regular (*Bkc) 100 Units/Ml SUB-Q Not Given DAILY@1200 [facility] Insulin Human Regular 25 units 10/16/24 09:35 10/17/24 10:14 Insulin Human Regular (*Bkc) 100 Units/Ml SUB-Q 25 units DAILY@0800 [facility] Administration Isosorbide Mononitrate 90 mg 10/03/24 09:00 10/16/24 09:58 Isosorbide Mononitrate 30 Mg Tab.Er.24h PO 90 mg DAILY TAMIKA Administration Loperamide HCl 2 mg 10/13/24 13:26 Loperamide Hcl 2 Mg Capsule PO PRN PRN Diarrhea Ondansetron HCl 4 mg 10/02/24 17:35 10/17/24 06:50 Ondansetron Inj 4 Mg/2 Ml Vial IV PUSH 4 mg Q6H PRN Administration Nausea And Vomiting Pantoprazole Sodium 40 mg 10/03/24 21:00 10/16/24 21:11 Pantoprazole 40 Mg Tablet PO 40 mg QHS TAMIKA Administration Polyethylene Glycol 17 gm 10/05/24 14:48 Polyethylene Glycol 3350 17 Gm Powd.Pack PO QAM PRN Constipation Propranolol HCl 80 mg 10/03/24 09:00 10/16/24 18:01 Propranolol Hcl 40 Mg Tablet PO 80 mg TID TAMIKA Administration Sertraline HCl 50 mg 10/02/24 23:10 10/16/24 09:59 Sertraline Hcl 50 Mg Tablet BY MOUTH 50 mg DAILY TAMIKA Administration Sodium Bicarbonate 1,300 mg 10/14/24 17:05 10/16/24 18:01 Sodium Bicarbonate Tab 650 Mg Tablet PO 1,300 mg TID TAMIKA Administration Sodium Chloride 1 spray 10/11/24 16:22 10/12/24 00:02 Saline 0.65% Fabiano Soln 44 Ml Btl NASAL 1 spray Q6HR PRN Administration Congestion Radiology Results: ITS Impressions Foot X-Ray 10/02/24 14:32 IMPRESSION: 1. Nondisplaced fracture of lateral aspect of head of first proximal phalanx. 2. Nondisplaced stellate fracture of tuft of first distal phalanx. 3. Mild polyarticular osteoarthritis. Renal Ultrasound 10/07/24 11:52 IMPRESSION: 1. 3.4 cm mixed solid and cystic lesion at the upper pole the right kidney with 2 cm solid nodular component which is concerning for renal cell carcinoma. Recommend urologic consultation and further evaluation with pre and postcontrast MRI or CT. 2. No hydronephrosis in either kidney. 3. Trabeculated bladder wall which can be seen with neurogenic bladder or chronic outlet obstruction such as in the setting of prostatomegaly. Renal Scan Nuclear Medicine 10/13/24 14:38 IMPRESSION: 1. Symmetric kidney function. 2. Delayed uptake and clearance of activity from the kidneys, consistent with decreased kidney function. Chest X-Ray 10/13/24 15:10 IMPRESSION: No acute cardiopulmonary process. Labs Labs: Laboratory Results - last 24 hr 10/16/24 10/16/24 10/16/24 16:52 16:57 19:55 WBC RBC Hgb Hct MCV MCH MCHC RDW Plt Count MPV Immature Gran % (Auto) Neut % (Auto) Lymph % (Auto) Izard % (Auto) Eos % (Auto) Baso % (Auto) Lymph # (Auto) Izard # (Auto) Eos # (Auto) Baso # (Auto) Abs Immat Gran (auto) Absolute Neuts (auto) Absolute Nucleated RBC Nucleated RBC % Sodium Potassium Chloride Carbon Dioxide Anion Gap BUN Creatinine Estim Creat Clear Calc Estimated GFR Glucose POC Capillary Glucose 90 101 Calcium Phosphorus Magnesium Total Bilirubin AST ALT Alkaline Phosphatase Total Protein Albumin Blood Type AB Negative Antibody Screen Negative 10/17/24 10/17/24 10/17/24 07:47 07:50 12:00 WBC 6.7 RBC 3.06 L Hgb 9.3 L Hct 28.3 L MCV 92.5 MCH 30.4 MCHC 32.9 RDW 14.5 Plt Count 194 MPV 11.0 H Immature Gran % (Auto) 0.6 H Neut % (Auto) 69.2 Lymph % (Auto) 20.1 Izard % (Auto) 9.7 H Eos % (Auto) 0.3 Baso % (Auto) 0.1 L Lymph # (Auto) 1.35 Izard # (Auto) 0.7 H Eos # (Auto) 0.0 Baso # (Auto) 0.0 Abs Immat Gran (auto) 0.04 H Absolute Neuts (auto) 4.6 Absolute Nucleated RBC 0.000 Nucleated RBC % 0.0 Sodium 136 L Potassium 4.6 Chloride 108 H Carbon Dioxide 13 L Anion Gap 15 H BUN 93 H Creatinine 6.84 H Estim Creat Clear Calc 13 Estimated GFR 8 L Glucose 129 H POC Capillary Glucose 133 H 127 H Calcium 6.6 L Phosphorus 8.7 H Magnesium 2.3 Total Bilirubin 0.9 AST 41 ALT 46 Alkaline Phosphatase 157 H Total Protein 6.0 L Albumin 2.4 L Blood Type Antibody Screen Quality VTE Prophylaxis VTE prophylaxis: mechanical ordered and pharmacologic ordered
--- NOTE | 2024-10-17 13:07 | P.PNAN_ITS ---
Anes - Initial Pre Proc Eval Procedure: Operation Date: 10/17/24 14:15 Proposed Procedures p Insertion Tunneled Dialysis Catheter - Nilson Lema MD Date/Time: 10/17/24 13:07 Surgeon: JUAN Rivera Pre Op Diagnosis: Toe Cellulitis/Toe Frac/Acute On Chronic Renal Jed Patient Data Age: 69 Gender: M Height: 1.88 m Weight: 120.9 kg Last Vital Signs Temp 37.0 C 10/17/24 08:22 Pulse 64 10/17/24 08:22 Resp 17 10/17/24 08:22 BP 143/87 H 10/17/24 08:22 Pulse Ox 97 10/17/24 08:22 O2 Del Method Room Air 10/15/24 20:00 O2 Flow Rate 8 10/06/24 13:00 Allergies Allergy/AdvReac Type Severity Reaction Status Date / Time No Known Allergies Allergy Verified 10/03/24 14:03 Home Medications ?Medication ?Instructions ?Recorded ?Confirmed ?Type aspirin 81 mg tablet 81 mg PO DAILY 03/14/21 10/02/24 History cetirizine 10 mg capsule (Zyrtec) 10 mg PO DAILY PRN allergy symptoms 03/14/21 10/02/24 History ranolazine 1,000 mg 1,000 mg PO Q12H 03/14/21 10/02/24 History tablet,extended release,12 hr fluticasone propionate 50 1 spray intranasal DAILY 10/12/22 10/02/24 History mcg/actuation nasal spray,suspension (Flonase Allergy Relief) atorvastatin 80 mg tablet 80 mg PO DAILY 3 months #90 tabs 10/16/22 10/02/24 Rx glucagon 1 mg/0.2 mL subcutaneous 1 mg (0.2 mL) subcut ONCE #0.4 mL 03/08/23 10/02/24 Rx auto-injector (Gvoke HypoPen 2-Pack) pen needle, diabetic 31 gauge x #100 ea 04/11/23 10/08/24 Rx 5/16 (BD Ultra-Fine Short Pen Needle) blood-glucose meter,continuous #1 ea 09/06/23 10/08/24 Rx (Dexcom G7 Dry Transfer Man) pantoprazole 40 mg tablet,delayed 40 mg PO QHS #90 tabs 10/01/23 10/02/24 Rx release bumetanide 0.5 mg tablet 0.5 mg PO DAILY #30 tabs 12/17/23 10/02/24 Rx isosorbide mononitrate 60 mg 90 mg (1.5 x 60 mg) PO DAILY #135 01/09/24 10/02/24 Rx tablet,extended release 24 hr tabs buspirone 10 mg tablet 10 mg PO BID #180 tabs 01/28/24 10/02/24 Rx blood-glucose sensor (Dexcom G7 #9 ea 02/28/24 10/08/24 Rx Sensor device) sertraline 50 mg tablet See Rx Instructions .Route 04/03/24 10/02/24 Rx .COMPLEX #90 tabs dapagliflozin propanediol 10 mg 10 mg PO QAM 90 days #90 tabs 08/15/24 10/02/24 Rx tablet (Farxiga) propranolol 80 mg tablet 80 mg PO TID #270 tabs 08/31/24 10/02/24 Rx calcitriol 0.25 mcg capsule 0.25 mcg PO 3XW 09/08/24 10/02/24 History ezetimibe 10 mg tablet 10 mg PO DAILY 09/08/24 10/02/24 History ondansetron HCl 8 mg tablet 8 mg PO Q8H PRN nausea and 09/23/24 10/02/24 Rx vomiting #20 tabs insulin regular hum U-500 conc 500 See Rx Instructions subcut QAM 10/02/24 10/02/24 History unit/mL(3 mL) subcut pen (Humulin R U-500 (Conc) Insulin Kwikpen) semaglutide 0.25 mg or 0.5 mg (2 0.25 mg subcut WEEKLY 10/02/24 10/02/24 History mg/3 mL) subcutaneous pen injector (Ozempic) amoxicillin 500 mg-potassium 1 tablet PO Q12HR 14 days #28 tabs 10/09/24 Rx clavulanate 125 mg tablet (Augmentin) Laboratory Tests 10/16/24 10/16/24 10/16/24 16:52 16:57 19:55 WBC RBC Hgb Hct MCV MCH MCHC RDW Plt Count MPV Immature Gran % (Auto) Neut % (Auto) Lymph % (Auto) [place] % (Auto) Eos % (Auto) Baso % (Auto) Lymph # (Auto) [place] # (Auto) Eos # (Auto) Baso # (Auto) Abs Immat Gran (auto) Absolute Neuts (auto) Absolute Nucleated RBC Nucleated RBC % Sodium Potassium Chloride Carbon Dioxide Anion Gap BUN Creatinine Estim Creat Clear Calc Estimated GFR Glucose POC Capillary Glucose 90 mg/dl 101 mg/dl (65-105) (65-105) Calcium Phosphorus Magnesium Total Bilirubin AST ALT Alkaline Phosphatase Total Protein Albumin Blood Type AB Negative Antibody Screen Negative 10/17/24 10/17/24 10/17/24 07:47 07:50 12:00 WBC 6.7 K/mm3 (4.5-10.0) RBC 3.06 L M/mm3 (4.6-6.20) Hgb 9.3 L g/dL (14.0-18.0) Hct 28.3 L % (42.0-52.0) MCV 92.5 fl (80-100) MCH 30.4 pg (26-34) MCHC 32.9 g/dl (32-36) RDW 14.5 % (11.5-14.5) Plt Count 194 k/mm3 (150-375) MPV 11.0 H fl (7.4-10.4) Immature Gran % (Auto) 0.6 H % (0-0.5) Neut % (Auto) 69.2 % (45.5-73.1) Lymph % (Auto) 20.1 % (18.3-44.2) [place] % (Auto) 9.7 H % (2.6-8.5) Eos % (Auto) 0.3 % (0-4.4) Baso % (Auto) 0.1 L % (0.2-1.2) Lymph # (Auto) 1.35 K/mm3 (0.9-3.2) [place] # (Auto) 0.7 H K/mm3 (0.1-0.6) Eos # (Auto) 0.0 K/mm3 (0-0.3) Baso # (Auto) 0.0 K/mm3 (0.0-0.1) Abs Immat Gran (auto) 0.04 H K/mm3 (0.00-0.031) Absolute Neuts (auto) 4.6 K/mm3 (1.3-6.7) Absolute Nucleated RBC 0.000 K/mm3 (0.0-0.012) Nucleated RBC % 0.0 % (0.0-0.2) Sodium 136 L mmol/L (137-145) Potassium 4.6 mmol/L (3.4-5.0) Chloride 108 H mmol/L (98-107) Carbon Dioxide 13 L mmol/L (22-30) Anion Gap 15 H mmol/L (4-12) BUN 93 H mg/dL (9-20) Creatinine 6.84 H mg/dL (0.7-1.3) Estim Creat Clear Calc 13 ml/min Estimated GFR 8 L (59 - ) Glucose 129 H mg/dL (65-110) POC Capillary Glucose 133 H mg/dl 127 H mg/dl (65-105) (65-105) Calcium 6.6 L mg/dL (8.4-10.2) Phosphorus 8.7 H mg/dL (2.5-4.5) Magnesium 2.3 mg/dL (1.6-2.3) Total Bilirubin 0.9 mg/dL (0.2-1.3) AST 41 U/L (17-59) ALT 46 U/L (6-50) Alkaline Phosphatase 157 H U/L (38-126) Total Protein 6.0 L g/dL (6.3-8.2) Albumin 2.4 L g/dL (3.5-5.1) Blood Type Antibody Screen Patient hx anesthesia problems: none Family hx anesthesia problems: none Results Review: All pre-operative results and documents have been reviewed as part of the pre- operative evaluation. [facility] Past Medical History Medical History (Updated 10/14/24 @ 08:41 by ANNA RiveraN-C) Transaminitis Renal mass, right COVID Gastro-esophageal reflux disease without esophagitis Chronic kidney disease, stage 3b Major depressive disorder, recurrent, mild Diastolic dysfunction (03/2022) Coronary artery disease with angina pectoris Essential tremor Long-term insulin use Hypertensive chronic kidney disease with stage 1 through stage 4 chronic kidney disease, or unspecified chronic kidney disease Risk for falls Pure hypercholesterolemia Essential (primary) hypertension Type 2 diabetes mellitus with hyperglycemia Surgical History Surgical History (Updated 10/06/24 @ 20:37 by Adrian Owens MD) History of amputation of right great toe (09/2024) History of amputation of left great toe (2020) Presence of aortocoronary bypass graft (10/2017) H/O foot surgery 2020, toe amputation S/P triple vessel bypass 10/2018 Family History Family History Father Family history of cataracts Mother Family history of diabetes mellitus in first degree relative Other Cancer Diabetes mellitus Heart disease Hypertension Social History Social History Smoking status: Never smoker Second hand tobacco smoke exposure: No Alcohol intake: never Alcohol use details: 1-2 per year Substance use: never Substance use type: does not use Do You Feel Safe in your Home?: Yes Lack of Transportation: No Lack of Food: Never True Current Housing: I Have Housing Concerned About Future Housing: No Difficulty Paying Gas/Electric Bills: No Difficulty Paying for Meds: No Currently Unemployed: No Education: Associate Degree Difficulty w/ Childcare or Family Care: No Living arrangements: with family Occupation/Education: retired Gender identity (if verbalized by the patient): Male Spiritual care concerns: No Agree to blood products: Yes Anes - Eval Final PreProcedure Day of Procedure 10/17/24 13:07 Patient weight: obese Heart: regular rate and rhythm Lungs: clear to auscultation Airway: Mallampati scale class II Neurological: alert and oriented Last oral intake: >/= 8 hours ASA classification: III Emergent: no Anesthetic plan: proceed Anesthesia type and monitoring: general LMA and standard monitoring Results Review: All pre-operative results and documents have been reviewed as part of the pre- operative evaluation. Informed Consent: The patient's anesthetic plan and its attendant risks and benefits were discussed with the patient/family/POA. Questions were solicited and answers provided to the satisfaction of the patient/family/POA.
--- NOTE | 2024-10-17 13:21 | WPDHPUPDATE1 ---
History and Physical Update Update Date/Time: 10/17/24 13:21 History and Physical has been reviewed, including an updated exam of the patient. There are NO changes in the patient's condition. Risks, benefits, and alternatives have been discussed and questions answered. Patient agrees to proceed with procedure.
[2024-10-17] MEDS: ceFAZolin SODIUM 1 GM VIAL IV PUSH (15:04)
[2024-10-17] MEDS: ceFAZolin 2 GM/D5W 50 ML 2 GM/50 ML BAG IVPB (15:04)
[2024-10-17] MEDS: LIDO 1%/EPINEPHRINE 1:100,000 50 ML VIAL 15 ML INFILTRATE (15:11)
[2024-10-17] MEDS: HEPARIN SODIUM, PORCINE 10,000 UNITS/10 ML VIAL 4 UNITS IRRIGATION (15:12)
[2024-10-17] MEDS: LACTATED RINGERS 1,000 ML 30 ML IV CONT (15:40)
[2024-10-17] MEDS: DEXTROSE 50% 25 GM/50 ML SYRINGE IV PUSH (15:55)
--- NOTE | 2024-10-17 16:16 | P.OP_ITS ---
Procedure Note - Detailed Date of Procedure 10/17/24 Pre-op Diagnosis End-stage renal disease, inadequate venous access Post-op Diagnosis Same Procedure Performed Placement left internal jugular tunneled dura flow central venous catheter using ultrasound and under fluoroscopy Surgeon Nilson Lema MD [employer] Ivette [employer] Anesthesia General (LMA) and Local Indications Patient has end-stage renal disease and I was asked by Nephrology to place tunneled dialysis catheter to begin hemodialysis. Findings None significant Description of Procedure Patient was taken to surgery and anesthesia was introduced. The left neck and left upper chest was prepped and draped. Using ultrasound, I found the left internal jugular vein fairly low in the neck. Local anesthetic was infiltrated. A single puncture was used to cannulate the left internal jugular vein. Guidewire passed into the internal jugular and down into the superior vena cava. Estimated Blood Loss 5 Urine Output 200 Drains No Packing No Pathology None sent Complications None Condition Stable Disposition No change (Recovered in the operating room due to COVID) [facility] Billing Surgery - Charge Forward: Surgery Billing (Placement left internal jugular tunneled central venous catheter using ultrasound and under fluoroscopy)
[2024-10-17 16:27] LABS: Glucose Point of Care 55 mg/dl (65-105)
[2024-10-17 16:27] LABS: Glucose Point of Care 74 mg/dl (65-105)
[2024-10-17 16:27] LABS: Glucose Point of Care 52 mg/dl (65-105)
[2024-10-17 17:32] LABS: Glucose Point of Care 68 mg/dl (65-105)
[2024-10-17 17:54] LABS: Hepatitis B Surface Antigen Negative (Negative)
[2024-10-17 18:11] LABS: Hepatitis B Surface Anti Res Negative
--- NOTE | 2024-10-17 18:20 | P.PNNP_ITS ---
Progress Note: A&P Assessment and Plan (1) JUAN CARLOS (acute kidney injury): Code(s): N17.9 - Acute kidney failure, unspecified Status: Acute Assessment and Plan: * as noted on admission - creatinine of 3.32mg/dl * came down to 2.9mg/dl transiently * presumed etiology likely secondary to acute infection - right great toe diabetic foot ulcer + cellulitis * however, cannot discount an element of CKD progression * evaluation to date noted: * renal u/s without hydro but concerning for renal mass * urine electrolytes pre-renal * urine eosinophils noted * UA (from 10/07) suggestive of infection -- culture Annie (but low CFU) * proteinuria noted * CPK normal * renal scan suggestive of ATN * holding diuretic therapy for now * on sodium bicarbonate for acidosis * proceed with renal replacement therapy * HD today * HD tomorrow * consider renal biopsy? * follow repeat labs and UOP (2) Chronic kidney disease, stage IV (severe): Code(s): N18.4 - Chronic kidney disease, stage 4 (severe) Status: Chronic Assessment and Plan: * baseline creatinine has been running 2.3 - 2.7mg/dl in the last few years * however, last creatinine up to 2.86mg/dl in July 2024 * due to diabetes, hypertension, vascular disease, (CAD + CHF + hyperlipidemia + PVD), and age * follows with Dr. Caprice Gusman for managment of his chronic kidney disease (3) Diabetic foot ulcer: Code(s): E11.621 - Type 2 diabetes mellitus with foot ulcer; L97.509 - Non-pressure chronic ulcer of other part of unspecified foot with unspecified severity Status: Acute Assessment and Plan: * as noted on admission * poor wound healing noted since injury * X-ray with right great toe fracture * complicated by cellulitis of right great toe * s/p right great toe amputation by Surgery (on 10/06) * culture data noted * blood cultures negative * would culture with Staph aureus * on antibiotics * local wound care (4) COVID: Code(s): U07.1 - COVID-19 Status: Acute Assessment and Plan: * as noted by recent testing * no evidence of hypoxia * possibly playing a role with #1(?) * continue supportive care (5) Diastolic dysfunction: Onset Date: 03/2022 Code(s): I51.89 - Other ill-defined heart diseases Status: Chronic Assessment and Plan: * appears compensated at this time * home diuretic therapy on hold due to #1 * follow volume/respiratory status (6) Anemia: Code(s): D64.9 - Anemia, unspecified Status: Chronic Assessment and Plan: * presumably related to CKD from some contributions from JUAN CARLOS, acute infection, and recent operative procedure * follow trend of H/H * no need for TAMKIO at this time (7) Urinary tract infection: Code(s): N39.0 - Urinary tract infection, site not specified Status: Acute Assessment and Plan: * recent UA (10/07) suggestive * urine culture x 2 with low CFU Annie (8) Hypertension: Code(s): I10 - Essential (primary) hypertension Status: Chronic Assessment and Plan: * reasonable control at this time * follow trend of hemodynamics (9) Renal mass, right: Code(s): N28.89 - Other specified disorders of kidney and ureter Status: Acute Assessment and Plan: * as noted on renal ultrasound * Urology recommendations noted (10) Type 2 diabetes mellitus with diabetic polyneuropathy: Code(s): E11.42 - Type 2 diabetes mellitus with diabetic polyneuropathy Status: Acute Assessment and Plan: * follow accu-checks * brittle control noted - last HgbA1c noted * glycemic control per hospitalist Will continue to follow. Subjective Date/time seen: 10/17/24 18:20 Interval history: Follow-up for acute kidney injury/acute renal failure on chronic kidney disease. Seen earlier today and currently while undergoing dialysis treatment (seen on HD at 6:10PM); s/p tunneled HD catheter placement earlier this afternoon; wax ing/waning symptoms of not feeling well as noted earlier today and yesterday; some intermittent confusion noted by nursing staff as well; still making urine but renal function/creatinine & BUN continue to climb as noted by AM labs; no other issues/events overnight or earlier this morning. Exam Narrative: General: elderly WD/WN male in NAD Heart: normal S1 and S2; no rub Lungs: clear to auscultation Abdomen: soft, nontender, nondistended, positive bowel sounds Extremities: no cyanosis or clubbing; trace edema Skin: dressings over right foot in place Objective Data Vital Signs Vital Signs: Vital Signs Temp Pulse Resp BP Pulse Ox O2 Del Method O2 Flow Rate 10/17/24 17:55 62 164/76 H 10/17/24 17:16 99.4 F 60 18 152/72 H 97 10/17/24 16:31 98.8 F 60 18 152/70 H 95 10/17/24 16:25 58 L 16 145/67 H 94 Room Air 10/17/24 16:10 60 20 149/71 H 95 Room Air 10/17/24 15:55 61 18 149/77 H 99 Simple Face Mask 10 10/17/24 15:40 98.2 F 60 18 124/73 96 Simple Face Mask 10 10/17/24 12:00 98.9 F 60 18 155/74 H 97 10/17/24 08:22 98.6 F 64 17 143/87 H 97 10/17/24 03:31 98.4 F 64 14 145/70 H 100 10/16/24 23:37 98.1 F 63 18 142/67 H 99 10/16/24 20:00 97.9 F 61 16 139/64 98 Intake/Output Intake/Output: Intake & Output 10/14/24 10/15/24 10/16/24 10/17/24 23:59 23:59 23:59 23:59 Intake Total 2017 2570 1320 990 Output Total 450 225 600 Balance 1567 2570 1095 390 Meds/Results Medications: Active Medications Generic Name Dose Route Start Last Admin Trade Name Freq PRN Reason Stop Dose Admin Acetaminophen 650 mg 10/02/24 16:55 10/12/24 00:01 Acetaminophen 325 Mg Tablet PO 650 mg Q4H PRN Administration Mild Pain (1-3) or Fever Albuterol 2.5 mg 10/12/24 13:19 Albuterol Sulfate Neb 2.5 Mg/3 Ml Inh INHALATION Q4HRT PRN Shortness Of Breath Amoxicillin/Clavulanate Potassium 1 tablet 10/17/24 12:15 Amoxicillin/Clavulanate K 500-125 Mg Tab PO 10/20/24 09:01 DAILY TAMIKA Amoxicillin/Clavulanate Potassium 1 tablet 10/17/24 12:13 Amoxicillin/Clavulanate K 500-125 Mg Tab PO 10/20/24 23:59 DAILY PRN DIALYSIS Aspirin 81 mg 10/03/24 09:00 10/17/24 15:29 Aspirin 81 Mg Enteric Tablet PO Not Given QAM PENDING SALE TO [facility] Atorvastatin Calcium 80 mg 10/03/24 09:00 10/17/24 15:30 Atorvastatin 40 Mg Tablet PO Not Given DAILY TAMIKA Bumetanide 0.5 mg 10/03/24 09:00 10/08/24 08:32 Bumetanide 0.5 Mg Tablet PO 0.5 mg DAILY TAMIKA Administration Buspirone HCl 10 mg 10/03/24 09:00 10/17/24 15:30 Buspirone Hcl 10 Mg Tablet PO Not Given BID TAMIKA Calcitriol 0.25 mcg 10/03/24 09:00 10/17/24 15:30 Calcitriol 0.25 Mcg Capsule PO Not Given [id number] PENDING SALE TO [facility] Dextrose 12.5 gm 10/02/24 17:35 10/17/24 15:55 Dextrose 50% 25 Gm/50 Ml Syringe IV PUSH 12.5 gm PRN PRN Administration Hypoglycemia Protocol Docusate Sodium 100 mg 10/03/24 09:00 10/17/24 15:30 Docusate Sodium 100 Mg Capsule PO Not Given BID PENDING SALE TO [facility] Ezetimibe 10 mg 10/03/24 09:00 10/17/24 15:30 Ezetimibe 10 Mg Tablet PO Not Given DAILY PENDING SALE TO [facility] Empagliflozin 25 mg 10/03/24 09:00 10/17/24 15:30 Empagliflozin 25 Mg Tablet BY MOUTH Not Given QAM PENDING SALE TO [facility] Epoetin Marco-epbx 10,000 units 10/17/24 20:40 Epoetin Marco-Epbx 10,000 Units/Ml Vial IV PUSH 10/17/24 20:41 ONCE ONE Fluticasone Propionate 1 spray 10/11/24 21:00 10/17/24 10:17 Fluticasone Propionate 0.05% Na Spr 16 Gm Btl (*Bkc) NASAL 1 spray Q12HR TAMIKA Administration Glucagon 1 mg 10/02/24 17:35 Glucagon For Inj 1 Mg Vial IM PRN PRN Hypoglycemia Protocol Glucose 15 gm 10/02/24 17:35 10/13/24 17:38 Glucose Oral Gel 15 Gm Of Glucse In 37.5 Gm Tube PO 15 gm PRN PRN Administration Hypoglycemia Protocol Guaifenesin 600 mg 10/15/24 12:30 10/17/24 15:30 Guaifenesin 12 Hr 600 Mg Tabcr PO 10/22/24 12:29 Not Given Q12HR TAMIKA Heparin Sodium (Porcine) 5,000 units 10/14/24 21:00 10/17/24 10:18 Heparin Sodium 5,000 Units/Ml Vial SUB-Q Not Given Q12HR TAMIKA Dextrose 1,000 mls @ 100 mls/hr 10/02/24 17:35 Dextrose 5% 1,000 Ml IVPB PRN PRN Hypoglycemia Protocol Albumin Human 50 mls @ 999 mls/hr 10/17/24 16:39 Albutein IVPB 11/16/24 16:38 Q10M PRN HYPOTENSION Insulin Aspart 3 - 6 units 10/03/24 08:00 10/17/24 13:32 Insulin Aspart (*Bkc) 100 Units/Ml SUB-Q Not Given TIDWM PENDING SALE TO [facility] Protocol Insulin Aspart 1 - 3 units 10/02/24 21:00 10/16/24 21:11 Insulin Aspart (*Bkc) 100 Units/Ml SUB-Q Not Given HS PENDING SALE TO [facility] Protocol Insulin Human Regular 25 units 10/03/24 13:00 10/17/24 13:32 Insulin Human Regular (*Bkc) 100 Units/Ml SUB-Q Not Given DAILY@1200 PENDING SALE TO [facility] Insulin Human Regular 25 units 10/16/24 09:35 10/17/24 10:14 Insulin Human Regular (*Bkc) 100 Units/Ml SUB-Q 25 units DAILY@0800 PENDING SALE TO [facility] Administration Isosorbide Mononitrate 90 mg 10/03/24 09:00 10/17/24 15:30 Isosorbide Mononitrate 30 Mg Tab.Er.24h PO Not Given DAILY PENDING SALE TO [facility] Loperamide HCl 2 mg 10/13/24 13:26 Loperamide Hcl 2 Mg Capsule PO PRN PRN Diarrhea Morphine Sulfate 2 mg 10/17/24 16:31 Morphine Sulfate (*Crx) 2 Mg/Ml Inj IV PUSH Q2H PRN Breakthrough Pain Rated 7-10 Ondansetron HCl 4 mg 10/02/24 17:35 10/17/24 06:50 Ondansetron Inj 4 Mg/2 Ml Vial IV PUSH 4 mg Q6H PRN Administration Nausea And Vomiting Oxycodone/Acetaminophen 1 tablet 10/17/24 16:31 Oxycodone/Acetaminophen (*Crx) 5-325 Mg Tablet PO Q4H PRN Pain Rated 4-6 Pantoprazole Sodium 40 mg 10/03/24 21:00 10/16/24 21:11 Pantoprazole 40 Mg Tablet PO 40 mg QHS TAMIKA Administration Polyethylene Glycol 17 gm 10/05/24 14:48 Polyethylene Glycol 3350 17 Gm Powd.Pack PO QAM PRN Constipation Propranolol HCl 80 mg 10/03/24 09:00 10/17/24 15:30 Propranolol Hcl 40 Mg Tablet PO Not Given TID TAMIKA Sertraline HCl 50 mg 10/02/24 23:10 10/17/24 15:31 Sertraline Hcl 50 Mg Tablet BY MOUTH Not Given DAILY PENDING SALE TO [facility] Sodium Bicarbonate 1,300 mg 10/14/24 17:05 10/17/24 15:31 Sodium Bicarbonate Tab 650 Mg Tablet PO Not Given TID PENDING SALE TO [facility] Sodium Chloride 1 spray 10/11/24 16:22 10/12/24 00:02 Saline 0.65% Fabiano Soln 44 Ml Btl NASAL 1 spray Q6HR PRN Administration Congestion Radiology Results: ITS Impressions Foot X-Ray 10/02/24 14:32 IMPRESSION: 1. Nondisplaced fracture of lateral aspect of head of first proximal phalanx. 2. Nondisplaced stellate fracture of tuft of first distal phalanx. 3. Mild polyarticular osteoarthritis. Renal Ultrasound 10/07/24 11:52 IMPRESSION: 1. 3.4 cm mixed solid and cystic lesion at the upper pole the right kidney with 2 cm solid nodular component which is concerning for renal cell carcinoma. Recommend urologic consultation and further evaluation with pre and postcontrast MRI or CT. 2. No hydronephrosis in either kidney. 3. Trabeculated bladder wall which can be seen with neurogenic bladder or chronic outlet obstruction such as in the setting of prostatomegaly. Renal Scan Nuclear Medicine 10/13/24 14:38 IMPRESSION: 1. Symmetric kidney function. 2. Delayed uptake and clearance of activity from the kidneys, consistent with decreased kidney function. Chest X-Ray 10/17/24 16:14 IMPRESSION: Left internal jugular central venous tunneled hemodialysis catheter in position and ready for immediate use Labs Labs: Laboratory Results - last 24 hr 10/17/24 07:47 WBC 6.7 Hgb 9.3 L Hct 28.3 L Plt Count 194 Sodium 136 L Potassium 4.6 Chloride 108 H Carbon Dioxide 13 L Anion Gap 15 H BUN 93 H Creatinine 6.84 H Estim Creat Clear Calc 13 Estimated GFR 8 L Glucose 129 H Calcium 6.6 L Phosphorus 8.7 H Magnesium 2.3 Total Bilirubin 0.9 AST 41 ALT 46 Alkaline Phosphatase 157 H Total Protein 6.0 L Albumin 2.4 L
[2024-10-17] MEDS: EPOETIN ALFA-EPBX 10,000 UNITS/ML VIAL 10000 UNITS IV PUSH (20:11)
[2024-10-17] MEDS: oxyCODONE/ACETAMINOPHEN (*CRX) 5-325 MG TABLET 1 TABLET PO (20:20)
[2024-10-17 21:59] LABS: Glucose Point of Care 97 mg/dl (65-105)
[2024-10-17] MEDS: PANTOPRAZOLE 40 MG TABLET PO (22:31)
[2024-10-17] MEDS: guaiFENesin 12 HR 600 MG TABCR PO (22:31)
[2024-10-17] MEDS: HEPARIN SODIUM 5,000 UNITS/ML VIAL 5000 UNITS SUB-Q (22:31)
[2024-10-17] MEDS: busPIRone HCL 10 MG TABLET PO (22:32)
[2024-10-17] MEDS: PROPRANOLOL HCL 40 MG TABLET 80 MG PO (22:33)
[2024-10-18] VITALS (22 sets, daily range): BP systolic 132–159; BP diastolic 63–81; PULSE 58–68; RESP 16–20; TEMP 36.7–37.2; O2SAT 93–97
[2024-10-18] MEDS: oxyCODONE/ACETAMINOPHEN (*CRX) 5-325 MG TABLET 1 TABLET PO (01:50)
[2024-10-18 06:27] LABS: Basophils Percent Auto 0.1 % (0.2-1.2); Eosinophils Absolute Auto 0.1 K/mm3 (0-0.3); Eosinophils Percent Auto 0.7 % (0-4.4); Hematocrit 28.4 % (42.0-52.0); Hemoglobin 9.1 g/dL (14.0-18.0); Immature Granulocyte Absolute 0.05 K/mm3 (0.00-0.031); Immature Granulocyte Percent A 0.7 % (0-0.5); Lymphocytes Percent Auto 22.2 % (18.3-44.2); Mean Corpuscular Hemoglobin 29.8 pg (26-34); Mean Corpuscular Volume 93.1 fl (80-100); Monocytes Absolute Auto 0.7 K/mm3 (0.1-0.6); Monocytes Percent Auto 9.4 % (2.6-8.5); Neutrophils Absolute Auto 4.8 K/mm3 (1.3-6.7); Neutrophils Percent Auto 66.9 % (45.5-73.1); Platelet Count Result 208 k/mm3 (150-375); Red Blood Count 3.05 M/mm3 (4.6-6.20); Red Cell Distribution Width 14.6 % (11.5-14.5); White Blood Count 7.2 K/mm3 (4.5-10.0)
[2024-10-18 06:41] LABS: Alanine Aminotransferase 32 U/L (6-50); Albumin Level 2.4 g/dL (3.5-5.1); Alkaline Phosphatase 147 U/L (38-126); Anion Gap 11 mmol/L (4-12); Aspartate Amino Transferase 34 U/L (17-59); Bilirubin,Total 0.8 mg/dL (0.2-1.3); Blood Urea Nitrogen 66 mg/dL (9-20); CRP 6.5 mg/dL (<1.0); Calcium 7.2 mg/dL (8.4-10.2); Carbon Dioxide 18 mmol/L (22-30); Chloride 108 mmol/L (98-107); Estimated CRCL calculation 17 ml/min; Estimated Glomerular Filt Rate 10; Glucose 133 mg/dL (65-110); Magnesium 2.2 mg/dL (1.6-2.3); Phosphorus 7.1 mg/dL (2.5-4.5); Potassium 4.4 mmol/L (3.4-5.0); Sodium 137 mmol/L (137-145)
[2024-10-18 08:02] LABS: Glucose Point of Care 145 mg/dl (65-105)
[2024-10-18] MEDS: PROPRANOLOL HCL 40 MG TABLET 80 MG PO ×2 (08:15→14:42)
[2024-10-18] MEDS: EZETIMIBE 10 MG TABLET PO (08:15)
[2024-10-18] MEDS: busPIRone HCL 10 MG TABLET PO ×2 (08:15→17:45)
[2024-10-18] MEDS: ASPIRIN 81 MG ENTERIC TABLET PO (08:15)
[2024-10-18] MEDS: ATORVASTATIN 40 MG TABLET 80 MG PO (08:15)
[2024-10-18] MEDS: DOCUSATE SODIUM 100 MG CAPSULE PO (08:15)
[2024-10-18] MEDS: guaiFENesin 12 HR 600 MG TABCR PO ×2 (08:16→22:24)
[2024-10-18] MEDS: SERTRALINE HCL 50 MG TABLET BY MOUTH (08:16)
[2024-10-18] MEDS: HEPARIN SODIUM 5,000 UNITS/ML VIAL 5000 UNITS SUB-Q ×2 (08:16→22:24)
[2024-10-18] MEDS: AMOXICILLIN/CLAVULANATE K 500-125 MG TAB 1 TABLET PO (08:16)
[2024-10-18] MEDS: ISOSORBIDE MONONITRATE 30 MG TAB.ER.24H 90 MG PO (08:16)
[2024-10-18] MEDS: FLUTICASONE PROPIONATE 0.05% NA SPR 16 GM BTL (*BKC) 1 SPRAY NASAL ×2 (08:17→22:24)
[2024-10-18] MEDS: INSULIN HUMAN REGULAR (*BKC) 100 UNITS/ML 25 UNITS SUB-Q (08:22)
[2024-10-18 08:40] LABS: Erythrocyte Sedimentation Rate > 140 mm/hr (0-20)
--- NOTE | 2024-10-18 10:40 | P.PNNP_ITS ---
Progress Note: A&P Assessment and Plan (1) JUAN CARLOS (acute kidney injury): Code(s): N17.9 - Acute kidney failure, unspecified Status: Acute Assessment and Plan: * as noted on admission - creatinine of 3.32mg/dl * came down to 2.9mg/dl transiently * presumed etiology likely secondary to acute infection - right great toe diabetic foot ulcer + cellulitis * however, cannot discount an element of CKD progression * evaluation to date noted: * renal u/s without hydro but concerning for renal mass * urine electrolytes pre-renal * urine eosinophils noted * UA (from 10/07) suggestive of infection -- culture Annie (but low CFU) * proteinuria noted * CPK normal * renal scan suggestive of ATN * holding diuretic therapy for now * on sodium bicarbonate for acidosis. His CO2 has improved. Anion gap is normal. * proceed with renal replacement therapy * HD will start soon * Dr. Jacobsen considering a renal biopsy * follow repeat labs and UOP (2) Chronic kidney disease, stage IV (severe): Code(s): N18.4 - Chronic kidney disease, stage 4 (severe) Status: Chronic Assessment and Plan: * baseline creatinine has been running 2.3 - 2.7mg/dl in the last few years * however, last creatinine up to 2.86mg/dl in July 2024 * due to diabetes, hypertension, vascular disease, (CAD + CHF + hyperlipidemia + PVD), and age * follows with Dr. Caprice Gusman for managment of his chronic kidney disease (3) Diabetic foot ulcer: Code(s): E11.621 - Type 2 diabetes mellitus with foot ulcer; L97.509 - Non-pressure chronic ulcer of other part of unspecified foot with unspecified severity Status: Acute Assessment and Plan: * as noted on admission * poor wound healing noted since injury * X-ray with right great toe fracture * complicated by cellulitis of right great toe * s/p right great toe amputation by Surgery (on 10/06) * culture data noted * blood cultures negative * would culture with Staph aureus * on Augmentin * Getting dressing changes (4) COVID: Code(s): U07.1 - COVID-19 Status: Acute Assessment and Plan: * as noted by recent testing * no evidence of hypoxia * possibly playing a role with #1(?) * continue supportive care (5) Diastolic dysfunction: Onset Date: 03/2022 Code(s): I51.89 - Other ill-defined heart diseases Status: Chronic Assessment and Plan: * appears compensated at this time * home diuretic therapy on hold due to #1 * volume status looks good right (6) Anemia: Code(s): D64.9 - Anemia, unspecified Status: Chronic Assessment and Plan: * presumably related to CKD from some contributions from JUAN CARLOS, acute infection, and recent operative procedure * hemoglobin 9.1, trending down words. * he is now getting EPO with dialysis (7) Urinary tract infection: Code(s): N39.0 - Urinary tract infection, site not specified Status: Acute Assessment and Plan: * recent UA (10/07) suggestive * urine culture x 2 with low CFU Annie (8) Hypertension: Code(s): I10 - Essential (primary) hypertension Status: Chronic Assessment and Plan: * reasonable control at this time * follow trend of hemodynamics (9) Renal mass, right: Code(s): N28.89 - Other specified disorders of kidney and ureter Status: Acute Assessment and Plan: * as noted on renal ultrasound * Urology recommendations noted (10) Type 2 diabetes mellitus with diabetic polyneuropathy: Code(s): E11.42 - Type 2 diabetes mellitus with diabetic polyneuropathy Status: Acute Assessment and Plan: * follow accu-checks * brittle control noted - last HgbA1c noted * glycemic control per hospitalist Subjective Date/time seen: 10/18/24 10:40 Interval history: patient feels okay. He is tired of being in the hospital. No chest pain or shortness of breath sitting up at the side of the bed. He just finished breakfast. On no oxygen. Exam Narrative: General: elderly WD/WN male in NAD Heart: normal S1 and S2; no rub or gallop Lungs: clear bilaterally Abdomen: soft, nontender, nondistended, positive bowel sounds Extremities: no cyanosis or clubbing; trace edema Skin: dressings over right foot in place Objective Data Vital Signs Vital Signs: Vital Signs - 24 hr 10/17/24 12:00 10/17/24 15:40 10/17/24 15:55 Temperature 98.9 F 98.2 F Pulse Rate 60 60 61 Respiratory Rate 18 18 18 Blood Pressure 155/74 H 124/73 149/77 H Pulse Oximetry 97 96 99 Oxygen Delivery Simple Face Mask Simple Face Mask Oxygen Flow Rate 10 10 Fraction of Inspired Oxygen 10/17/24 16:10 10/17/24 16:25 10/17/24 16:31 Temperature 98.8 F Pulse Rate 60 58 L 60 Respiratory Rate 20 16 18 Blood Pressure 149/71 H 145/67 H 152/70 H Pulse Oximetry 95 94 95 Oxygen Delivery Room Air Room Air Oxygen Flow Rate Fraction of Inspired Oxygen 10/17/24 17:16 10/17/24 17:55 10/17/24 17:55 Temperature 99.4 F Pulse Rate 60 62 Respiratory Rate 18 Blood Pressure 152/72 H 164/76 H Pulse Oximetry 97 Oxygen Delivery Oxygen Flow Rate 0 Fraction of Inspired Oxygen 0 10/17/24 17:55 10/17/24 18:15 10/17/24 18:45 Temperature 98.6 F Pulse Rate 62 62 63 Respiratory Rate 16 Blood Pressure 164/76 H 172/83 H 168/79 H Pulse Oximetry 97 Oxygen Delivery Oxygen Flow Rate Fraction of Inspired Oxygen 10/17/24 19:00 10/17/24 19:15 10/17/24 19:30 Temperature Pulse Rate 61 61 62 Respiratory Rate Blood Pressure 177/84 H 176/88 H 158/80 H Pulse Oximetry Oxygen Delivery Oxygen Flow Rate Fraction of Inspired Oxygen 10/17/24 19:45 10/17/24 20:00 10/17/24 20:00 Temperature Pulse Rate 62 62 Respiratory Rate Blood Pressure 178/80 H 159/76 H Pulse Oximetry Oxygen Delivery Room Air Oxygen Flow Rate Fraction of Inspired Oxygen 0 10/17/24 20:15 10/17/24 20:36 10/17/24 20:57 Temperature 99 F Pulse Rate 62 65 66 Respiratory Rate 16 Blood Pressure 167/74 H 168/77 H 167/71 H Pulse Oximetry 97 Oxygen Delivery Oxygen Flow Rate Fraction of Inspired Oxygen 10/17/24 22:33 10/18/24 00:00 10/18/24 04:00 Temperature 98.0 F 98.1 F Pulse Rate 68 65 68 Respiratory Rate 20 16 Blood Pressure 152/72 H 150/74 H Pulse Oximetry 96 97 Oxygen Delivery Oxygen Flow Rate Fraction of Inspired Oxygen 10/18/24 08:15 10/18/24 10:02 10/18/24 10:15 Temperature Pulse Rate 62 61 67 Respiratory Rate Blood Pressure 155/68 H 132/78 Pulse Oximetry Oxygen Delivery Oxygen Flow Rate Fraction of Inspired Oxygen 10/18/24 10:30 Temperature Pulse Rate 60 Respiratory Rate Blood Pressure 150/75 H Pulse Oximetry Oxygen Delivery Oxygen Flow Rate Fraction of Inspired Oxygen Intake/Output Intake/Output: Intake & Output 10/15/24 10/16/24 10/17/24 10/18/24 23:59 23:59 23:59 23:59 Intake Total 2570 1320 990 710 Output Total 225 600 250 Balance 2570 1095 390 460 Meds/Results Medications: Active Medications Generic Name Dose Route Start Last Admin Trade Name Freq PRN Reason Stop Dose Admin Acetaminophen 650 mg 10/02/24 16:55 10/12/24 00:01 Acetaminophen 325 Mg Tablet PO 650 mg Q4H PRN Administration Mild Pain (1-3) or Fever Albuterol 2.5 mg 10/12/24 13:19 Albuterol Sulfate Neb 2.5 Mg/3 Ml Inh INHALATION Q4HRT PRN Shortness Of Breath Amoxicillin/Clavulanate Potassium 1 tablet 10/17/24 12:15 10/18/24 08:16 Amoxicillin/Clavulanate K 500-125 Mg Tab PO 10/20/24 09:01 1 tablet DAILY TAMIKA Administration Amoxicillin/Clavulanate Potassium 1 tablet 10/17/24 12:13 Amoxicillin/Clavulanate K 500-125 Mg Tab PO 10/20/24 23:59 DAILY PRN DIALYSIS Aspirin 81 mg 10/03/24 09:00 10/18/24 08:15 Aspirin 81 Mg Enteric Tablet PO 81 mg QAM TAMIKA Administration Atorvastatin Calcium 80 mg 10/03/24 09:00 10/18/24 08:15 Atorvastatin 40 Mg Tablet PO 80 mg DAILY TAMIKA Administration Bumetanide 0.5 mg 10/03/24 09:00 10/08/24 08:32 Bumetanide 0.5 Mg Tablet PO 0.5 mg DAILY TAMIKA Administration Buspirone HCl 10 mg 10/03/24 09:00 10/18/24 08:15 Buspirone Hcl 10 Mg Tablet PO 10 mg BID TAMIKA Administration Calcitriol 0.25 mcg 10/03/24 09:00 10/17/24 15:30 Calcitriol 0.25 Mcg Capsule PO Not Given [id number] TAMIKA Dextrose 12.5 gm 10/02/24 17:35 10/17/24 15:55 Dextrose 50% 25 Gm/50 Ml Syringe IV PUSH 12.5 gm PRN PRN Administration Hypoglycemia Protocol Docusate Sodium 100 mg 10/03/24 09:00 10/18/24 08:15 Docusate Sodium 100 Mg Capsule PO 100 mg BID TAMIKA Administration Ezetimibe 10 mg 10/03/24 09:00 10/18/24 08:15 Ezetimibe 10 Mg Tablet PO 10 mg DAILY TAMIKA Administration Empagliflozin 25 mg 10/03/24 09:00 10/17/24 15:30 Empagliflozin 25 Mg Tablet BY MOUTH Not Given QAM TAMIKA Epoetin Marco-epbx 10,000 units 10/18/24 19:24 Epoetin Marco-Epbx 10,000 Units/Ml Vial IV PUSH 10/18/24 19:25 ONCE ONE Fluticasone Propionate 1 spray 10/11/24 21:00 10/18/24 08:17 Fluticasone Propionate 0.05% Na Spr 16 Gm Btl (*Bkc) NASAL 1 spray Q12HR TAMIKA Administration Glucagon 1 mg 10/02/24 17:35 Glucagon For Inj 1 Mg Vial IM PRN PRN Hypoglycemia Protocol Glucose 15 gm 10/02/24 17:35 10/13/24 17:38 Glucose Oral Gel 15 Gm Of Glucse In 37.5 Gm Tube PO 15 gm PRN PRN Administration Hypoglycemia Protocol Guaifenesin 600 mg 10/15/24 12:30 10/18/24 08:16 Guaifenesin 12 Hr 600 Mg Tabcr PO 10/22/24 12:29 600 mg Q12HR TAMIKA Administration Heparin Sodium (Porcine) 5,000 units 10/14/24 21:00 10/18/24 08:16 Heparin Sodium 5,000 Units/Ml Vial SUB-Q 5,000 units Q12HR TAMIKA Administration Dextrose 1,000 mls @ 100 mls/hr 10/02/24 17:35 Dextrose 5% 1,000 Ml IVPB PRN PRN Hypoglycemia Protocol Albumin Human 50 mls @ 999 mls/hr 10/17/24 16:39 Albutein IVPB 11/16/24 16:38 Q10M PRN HYPOTENSION Insulin Aspart 3 - 6 units 10/03/24 08:00 10/18/24 08:25 Insulin Aspart (*Bkc) 100 Units/Ml SUB-Q Not Given TIDWM TAMIKA Protocol Insulin Aspart 1 - 3 units 10/02/24 21:00 10/17/24 22:33 Insulin Aspart (*Bkc) 100 Units/Ml SUB-Q Not Given HS [facility] Protocol Insulin Human Regular 25 units 10/03/24 13:00 10/17/24 13:32 Insulin Human Regular (*Bkc) 100 Units/Ml SUB-Q Not Given DAILY@1200 [facility] Insulin Human Regular 25 units 10/16/24 09:35 10/18/24 08:22 Insulin Human Regular (*Bkc) 100 Units/Ml SUB-Q 25 units DAILY@0800 [facility] Administration Isosorbide Mononitrate 90 mg 10/03/24 09:00 10/18/24 08:16 Isosorbide Mononitrate 30 Mg Tab.Er.24h PO 90 mg DAILY [facility] Administration Loperamide HCl 2 mg 10/13/24 13:26 Loperamide Hcl 2 Mg Capsule PO PRN PRN Diarrhea Morphine Sulfate 2 mg 10/17/24 16:31 Morphine Sulfate (*Crx) 2 Mg/Ml Inj IV PUSH Q2H PRN Breakthrough Pain Rated 7-10 Ondansetron HCl 4 mg 10/02/24 17:35 10/17/24 06:50 Ondansetron Inj 4 Mg/2 Ml Vial IV PUSH 4 mg Q6H PRN Administration Nausea And Vomiting Oxycodone/Acetaminophen 1 tablet 10/17/24 16:31 10/18/24 01:50 Oxycodone/Acetaminophen (*Crx) 5-325 Mg Tablet PO 1 tablet Q4H PRN Administration Pain Rated 4-6 Pantoprazole Sodium 40 mg 10/03/24 21:00 10/17/24 22:31 Pantoprazole 40 Mg Tablet PO 40 mg QHS [facility] Administration Polyethylene Glycol 17 gm 10/05/24 14:48 Polyethylene Glycol 3350 17 Gm Powd.Pack PO QAM PRN Constipation Propranolol HCl 80 mg 10/03/24 09:00 10/18/24 08:15 Propranolol Hcl 40 Mg Tablet PO 80 mg TID TAMIKA Administration Sertraline HCl 50 mg 10/02/24 23:10 10/18/24 08:16 Sertraline Hcl 50 Mg Tablet BY MOUTH 50 mg DAILY [facility] Administration Sodium Chloride 1 spray 10/11/24 16:22 10/12/24 00:02 Saline 0.65% Fabiano Soln 44 Ml Btl NASAL 1 spray Q6HR PRN Administration Congestion Radiology Results: ITS Impressions Foot X-Ray 10/02/24 14:32 IMPRESSION: 1. Nondisplaced fracture of lateral aspect of head of first proximal phalanx. 2. Nondisplaced stellate fracture of tuft of first distal phalanx. 3. Mild polyarticular osteoarthritis. Renal Ultrasound 10/07/24 11:52 IMPRESSION: 1. 3.4 cm mixed solid and cystic lesion at the upper pole the right kidney with 2 cm solid nodular component which is concerning for renal cell carcinoma. Recommend urologic consultation and further evaluation with pre and postcontrast MRI or CT. 2. No hydronephrosis in either kidney. 3. Trabeculated bladder wall which can be seen with neurogenic bladder or chronic outlet obstruction such as in the setting of prostatomegaly. Renal Scan Nuclear Medicine 10/13/24 14:38 IMPRESSION: 1. Symmetric kidney function. 2. Delayed uptake and clearance of activity from the kidneys, consistent with decreased kidney function. Chest X-Ray 10/17/24 16:14 IMPRESSION: Left internal jugular central venous tunneled hemodialysis catheter in position and ready for immediate use Labs Labs: Laboratory Results - last 24 hr 10/17/24 10/17/24 10/17/24 07:47 12:00 15:47 WBC RBC Hgb Hct MCV MCH MCHC RDW Plt Count MPV Immature Gran % (Auto) Neut % (Auto) Lymph % (Auto) [place] % (Auto) Eos % (Auto) Baso % (Auto) Lymph # (Auto) [place] # (Auto) Eos # (Auto) Baso # (Auto) Abs Immat Gran (auto) Absolute Neuts (auto) Absolute Nucleated RBC Nucleated RBC % ESR Sodium Potassium Chloride Carbon Dioxide Anion Gap BUN Creatinine Estim Creat Clear Calc Estimated GFR Glucose POC Capillary Glucose 127 H 52 L* Calcium Phosphorus Magnesium Total Bilirubin AST ALT Alkaline Phosphatase C-Reactive Protein Total Protein Albumin Hep Bs Antigen Negative Hep Bs Antibody Negative 10/17/24 10/17/24 10/17/24 15:49 16:13 17:25 WBC RBC Hgb Hct MCV MCH MCHC RDW Plt Count MPV Immature Gran % (Auto) Neut % (Auto) Lymph % (Auto) [place] % (Auto) Eos % (Auto) Baso % (Auto) Lymph # (Auto) [place] # (Auto) Eos # (Auto) Baso # (Auto) Abs Immat Gran (auto) Absolute Neuts (auto) Absolute Nucleated RBC Nucleated RBC % ESR Sodium Potassium Chloride Carbon Dioxide Anion Gap BUN Creatinine Estim Creat Clear Calc Estimated GFR Glucose POC Capillary Glucose 55 L* 74 68 Calcium Phosphorus Magnesium Total Bilirubin AST ALT Alkaline Phosphatase C-Reactive Protein Total Protein Albumin Hep Bs Antigen Hep Bs Antibody 10/17/24 10/18/24 10/18/24 21:55 05:41 07:50 WBC 7.2 RBC 3.05 L Hgb 9.1 L Hct 28.4 L MCV 93.1 MCH 29.8 MCHC 32.0 RDW 14.6 H Plt Count 208 MPV 11.0 H Immature Gran % (Auto) 0.7 H Neut % (Auto) 66.9 Lymph % (Auto) 22.2 [place] % (Auto) 9.4 H Eos % (Auto) 0.7 Baso % (Auto) 0.1 L Lymph # (Auto) 1.60 [place] # (Auto) 0.7 H Eos # (Auto) 0.1 Baso # (Auto) 0.0 Abs Immat Gran (auto) 0.05 H Absolute Neuts (auto) 4.8 Absolute Nucleated RBC 0.000 Nucleated RBC % 0.0 ESR > 140 H Sodium 137 Potassium 4.4 Chloride 108 H Carbon Dioxide 18 L Anion Gap 11 BUN 66 H D Creatinine 5.73 H Estim Creat Clear Calc 17 Estimated GFR 10 L Glucose 133 H POC Capillary Glucose 97 145 H Calcium 7.2 L Phosphorus 7.1 H Magnesium 2.2 Total Bilirubin 0.8 AST 34 ALT 32 Alkaline Phosphatase 147 H C-Reactive Protein 6.5 H Total Protein 6.0 L Albumin 2.4 L Hep Bs Antigen Hep Bs Antibody
[2024-10-18] MEDS: EPOETIN ALFA-EPBX 10,000 UNITS/ML VIAL 10000 UNITS IV PUSH (11:03)
[2024-10-18 14:06] LABS: Glucose Point of Care 71 mg/dl (65-105)
[2024-10-18] MEDS: HEPARIN SODIUM 1,000 UNITS/ML VIAL 6000 UNITS (14:06)
[2024-10-18 14:28] LABS: Glucose Point of Care 77 mg/dl (65-105)
--- NOTE | 2024-10-18 14:53 | P.PNIM_ITS ---
Progress Note: A&P Assessment and Plan (1) Diabetic foot ulcer: Code(s): E11.621 - Type 2 diabetes mellitus with foot ulcer; L97.509 - Non-pressure chronic ulcer of other part of unspecified foot with unspecified severity Status: Acute Assessment and Plan: patient reports injury to right great toe with worsening symptoms patient has severe diabetes and CAD with poor wound healing initial x-ray did show right great toe was also fractured * CRP elevate no WBC * Surgery consulted if debridement or amputation needed * blood cultures no growth today * wound culture ordered * NPO in case of possible procedure * IV cefepime, vancomycin and Flagyl * Will need close glucose control for any type of wound healing patient is a severely uncontrolled diabetic on high-dose insulin 10/04: * Day 1 post-op * Blood cultures NGTD * inoperative wound culture pending * continue with current ABX therapy will de-escalate with Culture and sensitivity * Plan is surgery 10/06 for amputation due to exposed fractured toe 10/05: * Postop day 2 * normal wbc no fever * blood cultures NGTD * wound culture still pending * surgery tomorrow hold morning Lovenox 10/06 10/06: * Amputation 10/06 * Aerobic culture grew Staphylococcus aureus * De-escalated ABX to doxycycline Augmentin times 14 days. 10/07: * Post-op day 2 * Minimal pain * ABX de-escalated based on sensitivities MSSA * 10/08 post op day 3 no specific complaints awaiting PT evaluation to return home with HH is what pt wants 10/09 - will continue current Augmentin and wound treatment plan 10/10 - will continue current plan of treatment 10/12/24: * Continue Augmentin as ordered. * Continue dressing changes. 10/13/24: * Stable without any complaints of pain. Normal WBC's. * Continue dressings as ordered and Augmentin. 10/14/24: * Stable. * Continue Augmentin through 10/20/24. * Pt reports no pain. * No lab evidence of acute infection. 10/15/24 * Stable. * Continue Augmentin through 10/20/24. * Pt reports no pain. * No lab evidence of acute infection. 10/16/24: * Stable. * Continue Augmentin through 10/20/24. * Pt reports no pain. * No lab evidence of acute infection. 10/17/24: * Stable. * Continue Augmentin through 10/20/24. * Pt reports no pain. * No lab evidence of acute infection. 10/18/24: * Stable. * Continue Augmentin through 10/20/24. * Pt reports no pain. * No lab evidence of acute infection. (2) Fracture of right great toe: Code(s): S92.401A - Displaced unspecified fracture of right great toe, initial encounter for closed fracture Status: Acute Assessment and Plan: * Nondisplaced fracture of lateral aspect of head of first proximal phalanx. * Nondisplaced stellate fracture of tuft of first distal phalanx. * Orthopedics consulted * Pain management * elevate at rest * Great toe was Amputated - wound management doing well. 10/12/24: * See #1 - s/p amputation (3) Chronic kidney disease, stage 3b: Code(s): N18.32 - Chronic kidney disease, stage 3b Status: Acute Assessment and Plan: Acute on chronic renal failure Baseline around mid 2.5 * CR 3.32 POA * Currently on vancomycin pharmacy to dose will need to deescalate cultures * Avoid nephrotoxic drugs. * Monitor antihypertensive drug therapy. * Avoid NSAIDs. * Routine CMP monitoring GFR. * Monitor electrolytes especially potassium. * Antibiotic doses depending on creatinine clearance. * Pharmacy does medications. 10/07: * Cr continues to trend up 3.37 today * de-escalated ABX therapy and had IV fluids with no improvement * Nephrology consulted for further evaluation or recommendation baseline mid 2's * Renal US pending 10/08 creat is 4 nephrology rounding see recommendations 10/09 - creat - 4.30, BUN 84, GFR 14. Nephrology aware and monitoring. --> will give 1 liter of IV fluids today 10/10 - creat - 4.57, BUN 81, GFR 13, Nephrology aware and monitoring --> Nephrology to follow. Stopped Bumex prior, worsening Renal function. creat - 5.11, BUN 84, GFR 11, K- 5.1 - Nephrology following as well. 10/12/24: * Upward trend in Cr/BUN continues with labs showing 5.29/91 today. * Nephrology is following. * Continue to hold Bumex. * Minimize/eliminate renal offending agents. * Continue to trend renal function with daily labs. 10/13/24: * Acute on chronic progression vs. JUAN CARLOS from COVID * Nephrology continues to follow. * Holding Bumex. * Continue to trend. * NM Renal scan ordered for today. 10/14/24: * NM renal scan shows normal symmetric kidney function and delayed uptake and clearance of activity from within the kidneys, consistent with decreased kidney function. * Interval increase in creatinine to 5.71 today. (3.32 on admission) * Nephrology is following. Etiology uncertain but considers COVID, DM, HTN, Vascular disease and age. * Continue to hold diuretics, but pt is appearing to have some extra fluid on board. * Continue to trend labs. * Minimize renal offending agents. * Low Potassium diet * IVF challenge given again at request of Nephrology. 10/15/24: * NM renal scan shows normal symmetric kidney function and delayed uptake and clearance of activity from within the kidneys, consistent with decreased kidney function. * Creatinine 6.04 today (3.32 on admission). * Nephrology is following. Etiology uncertain but considers COVID, DM, HTN, Vascular disease and age. * Continue to hold diuretics, but pt is appearing to have some extra fluid on board. * Continue to trend labs. * Minimize renal offending agents. * Low Potassium diet 10/16/24: * NM renal scan shows normal symmetric kidney function and delayed uptake and clearance of activity from within the kidneys, consistent with decreased kidney function. * Creatinine 6.43 today (3.32 on admission). * Nephrology is following. Etiology uncertain but considers COVID, DM, HTN, Vascular disease and age. * Continue to hold diuretics, but pt is appearing to have some extra fluid on board. * Continue to trend labs. * Minimize renal offending agents. * Low Potassium diet * NPO after midnight for hemodialysis catheter placement for patient to start hemodialysis. 10/17/24: * NM renal scan shows normal symmetric kidney function and delayed uptake and clearance of activity from within the kidneys, consistent with decreased kidney function. * Creatinine 6.84 today (3.32 on admission). * Nephrology is following. Etiology uncertain but considers COVID, DM, HTN, Vascular disease and age. * Continue to hold diuretics, but pt is appearing to have some extra fluid on board. * Continue to trend labs. * Minimize renal offending agents. * Low Potassium diet * NPO today for hemodialysis catheter placement for patient to start hemodialysis. 10/18/24: * NM renal scan shows normal symmetric kidney function and delayed uptake and clearance of activity from within the kidneys, consistent with decreased ki dney function. * Creatinine 5.73 today (3.32 on admission). * Nephrology is following. Etiology uncertain but considers COVID, DM, HTN, Vascular disease and age. * Continue to hold diuretics, but pt is appearing to have some extra fluid on board. * Continue to trend labs. * Minimize renal offending agents. * Low Potassium diet * Hemodialysis today pulled off 519 ml. * follows with Dr. Caprice Gusman for management of his chronic kidney disease (4) Type 2 diabetes mellitus with diabetic polyneuropathy: Code(s): E11.42 - Type 2 diabetes mellitus with diabetic polyneuropathy Status: Acute Assessment and Plan: * Diabetic diet * Holding semaglutide * Hemoglobin A1c pending * Accuchecks ACHS * SSI moderate dosing added * Patient is hard to control diabetic on several diabetic medication, and high- dose insulin started conversion to U 100 while hospitalized and adjust as need currently 65u/25u/10u * Continue Jardiance and Zetia 10/12/24: * Continue current glycemic regimen. * Monitor and adjust as necessary. 10/13/24: * Fasting glucose this AM is 149. * No further adjustments to insulin dosing. * Continue current regimen for management. 10/14/24: * Current regimen is managing well. * A1C is 7.9. * Continue Diabetic/Low potassium diet. 10/15/24: * Current regimen is managing well. * Continue Diabetic/Low potassium diet. 10/16/24: * Adjusted morning regular insulin to 25 units. * Continue Diabetic/Low potassium diet. 10/17/24: * NPO this morning for hemodialysis catheter placement. * Monitor blood sugars. * Hypoglycemic protocol. * Follow diabetic regimen once able to eat. 10/18/24: * Renal dialysis diet. * Jardiance on hold due to low GFR. (5) Diastolic dysfunction: Onset Date: 03/2022 Code(s): I51.89 - Other ill-defined heart diseases Status: Chronic Assessment and Plan: * patient does not appear to be in exacerbation * stopped Bumex 10/12/24: * Continues to appear euvolemic. 10/13/24: * Pt with mild edema to the BUE and the BLE, no pitting. Will need continued close monitoring. Continue to hold Bumex. 10/15/24 * Creatinine 6.04, Bumex on hold. 10/16/24: * Creatinine 6.43, Bumex on hold. 10/17/24: * Creatinine 6.84, Bumex on hold. 10/18/24: * Creatinine 5.73, Bumex on hold. (6) Presence of aortocoronary bypass graft: Onset Date: 10/2017 Code(s): Z95.1 - Presence of aortocoronary bypass graft Status: Acute Assessment and Plan: * Continue Inderal, aspirin, Lipitor, an imdur, Atorvastatin 10/13/24: * Continue current meds. (7) COVID: Code(s): U07.1 - COVID-19 Status: Acute Assessment and Plan: 10/12/24: * Supportive care. * No steroids or other antivirals ordered in setting of no supplemental oxygen required. * PRN nebs ordered. 10/13/24: * Continue supportive care. (8) Renal mass, right: Code(s): N28.89 - Other specified disorders of kidney and ureter Status: Acute Assessment and Plan: 10/12/24: * A 3.4 cm mixed solid and cystic lesion at the upper pole the right kidney with 2 cm solid nodular component which is concerning for renal cell carcinoma. Recommend urologic consultation and further evaluation with pre and postcontrast MRI or CT. * Unable to do further imaging at this time due to renal function. * Urology and Nephrology following. 10/13/24: * Discussed with Dr. Jacobsen whether or not it is appropriate to inquire about doing a biopsy of the renal mass and whether or not that is contributing to his renal function, but he does not believe that it is contributing. He further notes that if there is concern for possible neoplastic disease, typically the mass is just resected and not biopsied. (9) Transaminitis: Code(s): R74.01 - Elevation of levels of liver transaminase levels Status: Acute Assessment and Plan: 10/14/24: * New during this admission. * Most likely etiology is having COVID. * Continue to trend. * Pt asympotmatic. If any development of pain, N/V then would consider RUQ US/CT abd pelvis. 10/17/24: * Alkaline phosphatase: 157. 10/18/24: * Alkaline phosphatase: 147. (10) Hypocalcemia: Code(s): E83.51 - Hypocalcemia Status: Acute Assessment and Plan: 10/17/24: * Calcium 6.6. * Calcium gluconate 2 gram IVPB given. * Monitor level. 10/18/24: * Calcium 7.2. * Hemodialysis today. Plan Subjective Date/time seen: 10/18/24 14:53 Interval history: Patient returned from dialysis, patient reports that he tolerated it okay. Patient denies chest pain, palpitations, dizziness, nausea, or vomiting. Patient reports a headache that is a 2 , frequent, and aching. Review of Systems Review of Systems: All systems reviewed & are unremarkable except as noted in HPI and below Exam Const: General: no acute distress and uncomfortable Resp: Effort & Inspection: normal respiratory effort Auscultation: clear to auscultation bilaterally Cardio: Rate: regular rate Rhythm: regular rhythm GI: GI Palp: Yes Soft to palpation Auscultation: normal bowel sounds Skin: Wounds: wounds noted (Right great toe amputated with small amount of dry blood on gauze. Healing.) Neuro: Speech: normal speech Extrem: General: pedal edema bilaterally (trace) Psych: Mental Status: mental status grossly normal Affect: normal affect Objective Data Vital Signs Vital Signs: Vital Signs - 24 hr 10/17/24 15:40 10/17/24 15:55 10/17/24 16:10 Temperature 98.2 F Pulse Rate 60 61 60 Respiratory Rate 18 18 20 Blood Pressure 124/73 149/77 H 149/71 H Pulse Oximetry 96 99 95 Oxygen Delivery Simple Face Mask Simple Face Mask Room Air Oxygen Flow Rate 10 10 Fraction of Inspired Oxygen 10/17/24 16:25 10/17/24 16:31 10/17/24 17:16 Temperature 98.8 F 99.4 F Pulse Rate 58 L 60 60 Respiratory Rate 16 18 18 Blood Pressure 145/67 H 152/70 H 152/72 H Pulse Oximetry 94 95 97 Oxygen Delivery Room Air Oxygen Flow Rate Fraction of Inspired Oxygen 10/17/24 17:55 10/17/24 17:55 10/17/24 17:55 Temperature 98.6 F Pulse Rate 62 62 Respiratory Rate 16 Blood Pressure 164/76 H 164/76 H Pulse Oximetry 97 Oxygen Delivery Oxygen Flow Rate 0 Fraction of Inspired Oxygen 0 10/17/24 18:15 10/17/24 18:45 10/17/24 19:00 Temperature Pulse Rate 62 63 61 Respiratory Rate Blood Pressure 172/83 H 168/79 H 177/84 H Pulse Oximetry Oxygen Delivery Oxygen Flow Rate Fraction of Inspired Oxygen 10/17/24 19:15 10/17/24 19:30 10/17/24 19:45 Temperature Pulse Rate 61 62 62 Respiratory Rate Blood Pressure 176/88 H 158/80 H 178/80 H Pulse Oximetry Oxygen Delivery Oxygen Flow Rate Fraction of Inspired Oxygen 10/17/24 20:00 10/17/24 20:00 10/17/24 20:15 Temperature Pulse Rate 62 62 Respiratory Rate Blood Pressure 159/76 H 167/74 H Pulse Oximetry Oxygen Delivery Room Air Oxygen Flow Rate Fraction of Inspired Oxygen 0 10/17/24 20:36 10/17/24 20:57 10/17/24 22:33 Temperature 99 F Pulse Rate 65 66 68 Respiratory Rate 16 Blood Pressure 168/77 H 167/71 H Pulse Oximetry 97 Oxygen Delivery Oxygen Flow Rate Fraction of Inspired Oxygen 10/18/24 00:00 10/18/24 04:00 10/18/24 08:00 Temperature 98.0 F 98.1 F Pulse Rate 65 68 62 Respiratory Rate 20 16 Blood Pressure 152/72 H 150/74 H Pulse Oximetry 96 97 Oxygen Delivery Room Air Oxygen Flow Rate Fraction of Inspired Oxygen 0 10/18/24 08:15 10/18/24 09:56 10/18/24 10:02 Temperature 98.4 F Pulse Rate 62 63 61 Respiratory Rate 19 Blood Pressure 148/75 H 155/68 H Pulse Oximetry 95 Oxygen Delivery Oxygen Flow Rate Fraction of Inspired Oxygen 10/18/24 10:15 10/18/24 10:30 10/18/24 10:45 Temperature Pulse Rate 67 60 59 L Respiratory Rate Blood Pressure 132/78 150/75 H 153/78 H Pulse Oximetry Oxygen Delivery Oxygen Flow Rate Fraction of Inspired Oxygen 10/18/24 11:00 10/18/24 11:15 10/18/24 11:30 Temperature Pulse Rate 59 L 59 L 59 L Respiratory Rate Blood Pressure 150/75 H 158/81 H 150/81 H Pulse Oximetry Oxygen Delivery Oxygen Flow Rate Fraction of Inspired Oxygen 10/18/24 11:45 10/18/24 12:00 10/18/24 12:15 Temperature Pulse Rate 58 L 59 L 58 L Respiratory Rate Blood Pressure 153/75 H 157/78 H 154/75 H Pulse Oximetry Oxygen Delivery Oxygen Flow Rate Fraction of Inspired Oxygen 10/18/24 12:30 10/18/24 12:45 10/18/24 13:07 Temperature Pulse Rate 58 L 59 L 60 Respiratory Rate Blood Pressure 159/77 H 157/79 H 150/74 H Pulse Oximetry Oxygen Delivery Oxygen Flow Rate Fraction of Inspired Oxygen 10/18/24 13:25 10/18/24 14:42 Temperature 98.4 F Pulse Rate 59 L 67 Respiratory Rate 19 Blood Pressure 159/79 H Pulse Oximetry 96 Oxygen Delivery Oxygen Flow Rate Fraction of Inspired Oxygen Intake/Output Intake/Output: Intake & Output 10/15/24 10/16/24 10/17/24 10/18/24 23:59 23:59 23:59 23:59 Intake Total 2570 1320 990 920 Output Total 225 600 769 Balance 2570 1095 390 151 Meds/Results Medications: Active Medications Generic Name Dose Route Start Last Admin Trade Name Freq PRN Reason Stop Dose Admin Acetaminophen 650 mg 10/02/24 16:55 10/12/24 00:01 Acetaminophen 325 Mg Tablet PO 650 mg Q4H PRN Administration Mild Pain (1-3) or Fever Albuterol 2.5 mg 10/12/24 13:19 Albuterol Sulfate Neb 2.5 Mg/3 Ml Inh INHALATION Q4HRT PRN Shortness Of Breath Amoxicillin/Clavulanate Potassium 1 tablet 10/17/24 12:15 10/18/24 08:16 Amoxicillin/Clavulanate K 500-125 Mg Tab PO 10/20/24 09:01 1 tablet DAILY TAMIKA Administration Amoxicillin/Clavulanate Potassium 1 tablet 10/17/24 12:13 Amoxicillin/Clavulanate K 500-125 Mg Tab PO 10/20/24 23:59 DAILY PRN DIALYSIS Aspirin 81 mg 10/03/24 09:00 10/18/24 08:15 Aspirin 81 Mg Enteric Tablet PO 81 mg QAM TAMIKA Administration Atorvastatin Calcium 80 mg 10/03/24 09:00 10/18/24 08:15 Atorvastatin 40 Mg Tablet PO 80 mg DAILY TAMIKA Administration Bumetanide 0.5 mg 10/03/24 09:00 10/08/24 08:32 Bumetanide 0.5 Mg Tablet PO 0.5 mg DAILY TAMIKA Administration Buspirone HCl 10 mg 10/03/24 09:00 10/18/24 08:15 Buspirone Hcl 10 Mg Tablet PO 10 mg BID TAMIKA Administration Calcitriol 0.25 mcg 10/03/24 09:00 10/17/24 15:30 Calcitriol 0.25 Mcg Capsule PO Not Given [id number]@[id number] TAMIKA Dextrose 12.5 gm 10/02/24 17:35 10/17/24 15:55 Dextrose 50% 25 Gm/50 Ml Syringe IV PUSH 12.5 gm PRN PRN Administration Hypoglycemia Protocol Docusate Sodium 100 mg 10/03/24 09:00 10/18/24 08:15 Docusate Sodium 100 Mg Capsule PO 100 mg BID TAMIKA Administration Ezetimibe 10 mg 10/03/24 09:00 10/18/24 08:15 Ezetimibe 10 Mg Tablet PO 10 mg DAILY TAMIKA Administration Empagliflozin 25 mg 10/03/24 09:00 10/17/24 15:30 Empagliflozin 25 Mg Tablet BY MOUTH Not Given QAM [facility] Epoetin Marco-epbx 10,000 units 10/18/24 19:24 10/18/24 11:03 Epoetin Marco-Epbx 10,000 Units/Ml Vial IV PUSH 10/18/24 19:25 10,000 units ONCE ONE Administration Fluticasone Propionate 1 spray 10/11/24 21:00 10/18/24 08:17 Fluticasone Propionate 0.05% Na Spr 16 Gm Btl (*Bkc) NASAL 1 spray Q12HR TAMIKA Administration Glucagon 1 mg 10/02/24 17:35 Glucagon For Inj 1 Mg Vial IM PRN PRN Hypoglycemia Protocol Glucose 15 gm 10/02/24 17:35 10/13/24 17:38 Glucose Oral Gel 15 Gm Of Glucse In 37.5 Gm Tube PO 15 gm PRN PRN Administration Hypoglycemia Protocol Guaifenesin 600 mg 10/15/24 12:30 10/18/24 08:16 Guaifenesin 12 Hr 600 Mg Tabcr PO 10/22/24 12:29 600 mg Q12HR TAMIKA Administration Heparin Sodium (Porcine) 5,000 units 10/14/24 21:00 10/18/24 08:16 Heparin Sodium 5,000 Units/Ml Vial SUB-Q 5,000 units Q12HR TAMIKA Administration Dextrose 1,000 mls @ 100 mls/hr 10/02/24 17:35 Dextrose 5% 1,000 Ml IVPB PRN PRN Hypoglycemia Protocol Albumin Human 50 mls @ 999 mls/hr 10/17/24 16:39 Albutein IVPB 11/16/24 16:38 Q10M PRN HYPOTENSION Insulin Aspart 3 - 6 units 10/03/24 08:00 10/18/24 14:05 Insulin Aspart (*Bkc) 100 Units/Ml SUB-Q Not Given TIDWM [facility] Protocol Insulin Aspart 1 - 3 units 10/02/24 21:00 10/17/24 22:33 Insulin Aspart (*Bkc) 100 Units/Ml SUB-Q Not Given HS [facility] Protocol Insulin Human Regular 25 units 10/03/24 13:00 10/18/24 14:04 Insulin Human Regular (*Bkc) 100 Units/Ml SUB-Q Not Given DAILY@1200 [facility] Insulin Human Regular 25 units 10/16/24 09:35 10/18/24 08:22 Insulin Human Regular (*Bkc) 100 Units/Ml SUB-Q 25 units DAILY@0800 TAMIKA Administration Isosorbide Mononitrate 90 mg 10/03/24 09:00 10/18/24 08:16 Isosorbide Mononitrate 30 Mg Tab.Er.24h PO 90 mg DAILY TAMIKA Administration Loperamide HCl 2 mg 10/13/24 13:26 Loperamide Hcl 2 Mg Capsule PO PRN PRN Diarrhea Morphine Sulfate 2 mg 10/17/24 16:31 Morphine Sulfate (*Crx) 2 Mg/Ml Inj IV PUSH Q2H PRN Breakthrough Pain Rated 7-10 Ondansetron HCl 4 mg 10/02/24 17:35 10/17/24 06:50 Ondansetron Inj 4 Mg/2 Ml Vial IV PUSH 4 mg Q6H PRN Administration Nausea And Vomiting Oxycodone/Acetaminophen 1 tablet 10/17/24 16:31 10/18/24 01:50 Oxycodone/Acetaminophen (*Crx) 5-325 Mg Tablet PO 1 tablet Q4H PRN Administration Pain Rated 4-6 Pantoprazole Sodium 40 mg 10/03/24 21:00 10/17/24 22:31 Pantoprazole 40 Mg Tablet PO 40 mg QHS TAMIKA Administration Polyethylene Glycol 17 gm 10/05/24 14:48 Polyethylene Glycol 3350 17 Gm Powd.Pack PO QAM PRN Constipation Propranolol HCl 80 mg 10/03/24 09:00 10/18/24 14:42 Propranolol Hcl 40 Mg Tablet PO 80 mg TID TAMIKA Administration Sertraline HCl 50 mg 10/02/24 23:10 10/18/24 08:16 Sertraline Hcl 50 Mg Tablet BY MOUTH 50 mg DAILY TAMIKA Administration Sodium Chloride 1 spray 10/11/24 16:22 10/12/24 00:02 Saline 0.65% Fabiano Soln 44 Ml Btl NASAL 1 spray Q6HR PRN Administration Congestion Radiology Results: ITS Impressions Foot X-Ray 10/02/24 14:32 IMPRESSION: 1. Nondisplaced fracture of lateral aspect of head of first proximal phalanx. 2. Nondisplaced stellate fracture of tuft of first distal phalanx. 3. Mild polyarticular osteoarthritis. Renal Ultrasound 10/07/24 11:52 IMPRESSION: 1. 3.4 cm mixed solid and cystic lesion at the upper pole the right kidney with 2 cm solid nodular component which is concerning for renal cell carcinoma. Recommend urologic consultation and further evaluation with pre and postcontrast MRI or CT. 2. No hydronephrosis in either kidney. 3. Trabeculated bladder wall which can be seen with neurogenic bladder or chronic outlet obstruction such as in the setting of prostatomegaly. Renal Scan Nuclear Medicine 10/13/24 14:38 IMPRESSION: 1. Symmetric kidney function. 2. Delayed uptake and clearance of activity from the kidneys, consistent with decreased kidney function. Chest X-Ray 10/17/24 16:14 IMPRESSION: Left internal jugular central venous tunneled hemodialysis catheter in position and ready for immediate use Labs Labs: Laboratory Results - last 24 hr 10/17/24 10/17/24 10/17/24 07:47 15:47 15:49 WBC RBC Hgb Hct MCV MCH MCHC RDW Plt Count MPV Immature Gran % (Auto) Neut % (Auto) Lymph % (Auto) [place] % (Auto) Eos % (Auto) Baso % (Auto) Lymph # (Auto) [place] # (Auto) Eos # (Auto) Baso # (Auto) Abs Immat Gran (auto) Absolute Neuts (auto) Absolute Nucleated RBC Nucleated RBC % ESR Sodium Potassium Chloride Carbon Dioxide Anion Gap BUN Creatinine Estim Creat Clear Calc Estimated GFR Glucose POC Capillary Glucose 52 L* 55 L* Calcium Phosphorus Magnesium Total Bilirubin AST ALT Alkaline Phosphatase C-Reactive Protein Total Protein Albumin Hep Bs Antigen Negative Hep Bs Antibody Negative 10/17/24 10/17/24 10/17/24 16:13 17:25 21:55 WBC RBC Hgb Hct MCV MCH MCHC RDW Plt Count MPV Immature Gran % (Auto) Neut % (Auto) Lymph % (Auto) [place] % (Auto) Eos % (Auto) Baso % (Auto) Lymph # (Auto) [place] # (Auto) Eos # (Auto) Baso # (Auto) Abs Immat Gran (auto) Absolute Neuts (auto) Absolute Nucleated RBC Nucleated RBC % ESR Sodium Potassium Chloride Carbon Dioxide Anion Gap BUN Creatinine Estim Creat Clear Calc Estimated GFR Glucose POC Capillary Glucose 74 68 97 Calcium Phosphorus Magnesium Total Bilirubin AST ALT Alkaline Phosphatase C-Reactive Protein Total Protein Albumin Hep Bs Antigen Hep Bs Antibody 10/18/24 10/18/24 10/18/24 05:41 07:50 14:01 WBC 7.2 RBC 3.05 L Hgb 9.1 L Hct 28.4 L MCV 93.1 MCH 29.8 MCHC 32.0 RDW 14.6 H Plt Count 208 MPV 11.0 H Immature Gran % (Auto) 0.7 H Neut % (Auto) 66.9 Lymph % (Auto) 22.2 [place] % (Auto) 9.4 H Eos % (Auto) 0.7 Baso % (Auto) 0.1 L Lymph # (Auto) 1.60 [place] # (Auto) 0.7 H Eos # (Auto) 0.1 Baso # (Auto) 0.0 Abs Immat Gran (auto) 0.05 H Absolute Neuts (auto) 4.8 Absolute Nucleated RBC 0.000 Nucleated RBC % 0.0 ESR > 140 H Sodium 137 Potassium 4.4 Chloride 108 H Carbon Dioxide 18 L Anion Gap 11 BUN 66 H D Creatinine 5.73 H Estim Creat Clear Calc 17 Estimated GFR 10 L Glucose 133 H POC Capillary Glucose 145 H 71 Calcium 7.2 L Phosphorus 7.1 H Magnesium 2.2 Total Bilirubin 0.8 AST 34 ALT 32 Alkaline Phosphatase 147 H C-Reactive Protein 6.5 H Total Protein 6.0 L Albumin 2.4 L Hep Bs Antigen Hep Bs Antibody 10/18/24 14:23 WBC RBC Hgb Hct MCV MCH MCHC RDW Plt Count MPV Immature Gran % (Auto) Neut % (Auto) Lymph % (Auto) [place] % (Auto) Eos % (Auto) Baso % (Auto) Lymph # (Auto) [place] # (Auto) Eos # (Auto) Baso # (Auto) Abs Immat Gran (auto) Absolute Neuts (auto) Absolute Nucleated RBC Nucleated RBC % ESR Sodium Potassium Chloride Carbon Dioxide Anion Gap BUN Creatinine Estim Creat Clear Calc Estimated GFR Glucose POC Capillary Glucose 77 Calcium Phosphorus Magnesium Total Bilirubin AST ALT Alkaline Phosphatase C-Reactive Protein Total Protein Albumin Hep Bs Antigen Hep Bs Antibody Quality VTE Prophylaxis VTE prophylaxis: mechanical ordered and pharmacologic ordered
[2024-10-18 17:02] LABS: Glucose Point of Care 136 mg/dl (65-105)
[2024-10-18] MEDS: ONDANSETRON INJ 4 MG/2 ML VIAL IV PUSH (18:40)
[2024-10-18 20:14] LABS: Glucose Point of Care 141 mg/dl (65-105)
[2024-10-18] MEDS: PANTOPRAZOLE 40 MG TABLET PO (22:24)
[2024-10-19] VITALS: BP 131/72; PULSE 65; RESP 20; TEMP 37.1; O2SAT 94
[2024-10-19 04:00] VITALS: BP 142/88; PULSE 62; RESP 20; TEMP 36.7; O2SAT 97
[2024-10-19 07:01] LABS: Basophils Percent Auto 0.3 % (0.2-1.2); Eosinophils Absolute Auto 0.1 K/mm3 (0-0.3); Eosinophils Percent Auto 1.9 % (0-4.4); Hematocrit 28.5 % (42.0-52.0); Hemoglobin 9.4 g/dL (14.0-18.0); Immature Granulocyte Absolute 0.06 K/mm3 (0.00-0.031); Immature Granulocyte Percent A 0.9 % (0-0.5); Lymphocytes Absolute Auto 2.13 K/mm3 (0.9-3.2); Lymphocytes Percent Auto 30.6 % (18.3-44.2); Mean Corpuscular Volume 94.1 fl (80-100); Monocytes Absolute Auto 0.8 K/mm3 (0.1-0.6); Monocytes Percent Auto 11.1 % (2.6-8.5); Neutrophils Absolute Auto 3.9 K/mm3 (1.3-6.7); Neutrophils Percent Auto 55.2 % (45.5-73.1); Platelet Count Result 226 k/mm3 (150-375); Red Blood Count 3.03 M/mm3 (4.6-6.20); Red Cell Distribution Width 14.5 % (11.5-14.5)
[2024-10-19 07:13] LABS: Alanine Aminotransferase 20 U/L (6-50); Albumin Level 2.5 g/dL (3.5-5.1); Alkaline Phosphatase 134 U/L (38-126); Anion Gap 9 mmol/L (4-12); Aspartate Amino Transferase 28 U/L (17-59); Bilirubin,Total 0.8 mg/dL (0.2-1.3); Blood Urea Nitrogen 44 mg/dL (9-20); Carbon Dioxide 24 mmol/L (22-30); Chloride 102 mmol/L (98-107); Estimated CRCL calculation 20 ml/min; Estimated Glomerular Filt Rate 12; Glucose 138 mg/dL (65-110); Phosphorus 4.9 mg/dL (2.5-4.5); Potassium 4.2 mmol/L (3.4-5.0); Sodium 135 mmol/L (137-145)
[2024-10-19 07:48] LABS: Glucose Point of Care 151 mg/dl (65-105)
[2024-10-19 08:04] LABS: Hepatitis B Core Ab Total NON-REACTIVE (NON-REACTIVE)
[2024-10-19 09:22] VITALS: PULSE 74
[2024-10-19] MEDS: AMOXICILLIN/CLAVULANATE K 500-125 MG TAB 1 TABLET PO (09:22)
[2024-10-19] MEDS: ISOSORBIDE MONONITRATE 30 MG TAB.ER.24H 90 MG PO (09:22)
[2024-10-19] MEDS: PROPRANOLOL HCL 40 MG TABLET 80 MG PO ×3 (09:22→18:10)
[2024-10-19] MEDS: ASPIRIN 81 MG ENTERIC TABLET PO (09:22)
[2024-10-19] MEDS: DOCUSATE SODIUM 100 MG CAPSULE PO ×2 (09:23→18:10)
[2024-10-19] MEDS: ATORVASTATIN 40 MG TABLET 80 MG PO (09:24)
[2024-10-19] MEDS: guaiFENesin 12 HR 600 MG TABCR PO ×2 (09:24→21:14)
[2024-10-19] MEDS: busPIRone HCL 10 MG TABLET PO ×2 (09:24→18:10)
[2024-10-19] MEDS: HEPARIN SODIUM 5,000 UNITS/ML VIAL 5000 UNITS SUB-Q ×2 (09:24→21:13)
[2024-10-19] MEDS: SERTRALINE HCL 50 MG TABLET BY MOUTH (09:24)
[2024-10-19] MEDS: EZETIMIBE 10 MG TABLET PO (09:24)
[2024-10-19] MEDS: FLUTICASONE PROPIONATE 0.05% NA SPR 16 GM BTL (*BKC) 1 SPRAY NASAL ×2 (09:28→21:15)
--- NOTE | 2024-10-19 10:52 | P.PNNP_ITS ---
Progress Note: A&P Assessment and Plan (1) JUAN CARLOS (acute kidney injury): Code(s): N17.9 - Acute kidney failure, unspecified Status: Acute Assessment and Plan: * as noted on admission - creatinine of 3.32mg/dl * came down to 2.9mg/dl transiently * presumed etiology likely secondary to acute infection - right great toe diabetic foot ulcer + cellulitis * however, cannot discount an element of CKD progression * evaluation to date noted: * renal u/s without hydro but concerning for renal mass * urine electrolytes pre-renal * urine eosinophils noted * UA (from 10/07) suggestive of infection -- culture Annie (but low CFU) * proteinuria noted * CPK normal * renal scan suggestive of ATN * holding diuretic therapy for now * acidosis better.. * proceed with renal replacement therapy * U.O. is somewhat low. * will check rfp tomorrow and see if he needs dialysis. * Dr. Jacobsen considering a renal biopsy * check labs tomorrow to see whether he needs HD. cmp ordered. (2) Chronic kidney disease, stage IV (severe): Code(s): N18.4 - Chronic kidney disease, stage 4 (severe) Status: Chronic Assessment and Plan: * baseline creatinine has been running 2.3 - 2.7mg/dl in the last few years * however, last creatinine up to 2.86mg/dl in July 2024 * due to diabetes, hypertension, vascular disease, (CAD + CHF + hyperlipidemia + PVD), and age * follows with Dr. Caprice Gusman for managment of his chronic kidney disease (3) Diabetic foot ulcer: Code(s): E11.621 - Type 2 diabetes mellitus with foot ulcer; L97.509 - Non-pressure chronic ulcer of other part of unspecified foot with unspecified severity Status: Acute Assessment and Plan: * as noted on admission * poor wound healing noted since injury * X-ray with right great toe fracture * complicated by cellulitis of right great toe * s/p right great toe amputation by Surgery (on 10/06) * culture data noted * blood cultures negative * would culture with Staph aureus * on Augmentin * Getting dressing changes (4) COVID: Code(s): U07.1 - COVID-19 Status: Acute Assessment and Plan: * as noted by recent testing * no evidence of hypoxia. no fever. * possibly playing a role with #1(?) * continue supportive care (5) Diastolic dysfunction: Onset Date: 03/2022 Code(s): I51.89 - Other ill-defined heart diseases Status: Chronic Assessment and Plan: * appears compensated at this time * home diuretic therapy on hold due to #1 * volume status looks good right now. * urine output not being recorded. (6) Anemia: Code(s): D64.9 - Anemia, unspecified Status: Chronic Assessment and Plan: * presumably related to CKD from some contributions from JUAN CARLOS, acute infection, and recent operative procedure * hemoglobin up a bit to 9.4 * he is now getting EPO with dialysis treatments (7) Urinary tract infection: Code(s): N39.0 - Urinary tract infection, site not specified Status: Acute Assessment and Plan: * recent UA (10/07) suggestive * urine culture x 2 with low CFU Annie (8) Hypertension: Code(s): I10 - Essential (primary) hypertension Status: Chronic Assessment and Plan: * systolic 130s to 140s * follow trend of hemodynamics (9) Renal mass, right: Code(s): N28.89 - Other specified disorders of kidney and ureter Status: Acute Assessment and Plan: * as noted on renal ultrasound * Urology recommendations noted (10) Type 2 diabetes mellitus with diabetic polyneuropathy: Code(s): E11.42 - Type 2 diabetes mellitus with diabetic polyneuropathy Status: Acute Assessment and Plan: * follow accu-checks * brittle control noted - last HgbA1c noted * glycemic control per hospitalist Subjective Date/time seen: 10/19/24 10:52 Interval history: alert. eager for discharge. no sob or cp eating fine. Exam Narrative: General: elderly WD/WN male in NAD Heart: normal S1 and S2; no rub Lungs: clear to ausc Abdomen: soft, nontender, nondistended, positive bowel sounds Extremities: trace edema Skin: dressings over right foot in place Objective Data Vital Signs Vital Signs: Vital Signs - 24 hr 10/18/24 11:00 10/18/24 11:15 10/18/24 11:30 Temperature Pulse Rate 59 L 59 L 59 L Respiratory Rate Blood Pressure 150/75 H 158/81 H 150/81 H Pulse Oximetry Oxygen Delivery 10/18/24 11:45 10/18/24 12:00 10/18/24 12:15 Temperature Pulse Rate 58 L 59 L 58 L Respiratory Rate Blood Pressure 153/75 H 157/78 H 154/75 H Pulse Oximetry Oxygen Delivery 10/18/24 12:30 10/18/24 12:45 10/18/24 13:09 Temperature Pulse Rate 58 L 59 L 60 Respiratory Rate Blood Pressure 159/77 H 157/79 H 150/74 H Pulse Oximetry Oxygen Delivery 10/18/24 13:25 10/18/24 14:42 10/18/24 15:40 Temperature 98.4 F 98.1 F Pulse Rate 59 L 67 65 Respiratory Rate 19 16 Blood Pressure 159/79 H 135/63 Pulse Oximetry 96 96 Oxygen Delivery 10/18/24 20:00 10/18/24 20:00 10/19/24 00:00 Temperature 99.0 F 98.7 F Pulse Rate 62 65 Respiratory Rate 16 20 Blood Pressure 134/72 131/72 Pulse Oximetry 93 94 Oxygen Delivery Room Air 10/19/24 04:00 10/19/24 09:22 Temperature 98.1 F Pulse Rate 62 74 Respiratory Rate 20 Blood Pressure 142/88 H Pulse Oximetry 97 Oxygen Delivery Intake/Output Intake/Output: Intake & Output 10/16/24 10/17/24 10/18/24 10/19/24 23:59 23:59 23:59 23:59 Intake Total 8235 811 8979 880 Output Total 225 600 769 Balance 1095 390 401 880 Meds/Results Medications: Active Medications Generic Name Dose Route Start Last Admin Trade Name Freq PRN Reason Stop Dose Admin Acetaminophen 650 mg 10/02/24 16:55 10/12/24 00:01 Acetaminophen 325 Mg Tablet PO 650 mg Q4H PRN Administration Mild Pain (1-3) or Fever Albuterol 2.5 mg 10/12/24 13:19 Albuterol Sulfate Neb 2.5 Mg/3 Ml Inh INHALATION Q4HRT PRN Shortness Of Breath Amoxicillin/Clavulanate Potassium 1 tablet 10/17/24 12:15 10/19/24 09:22 Amoxicillin/Clavulanate K 500-125 Mg Tab PO 10/20/24 09:01 1 tablet DAILY TAMIKA Administration Amoxicillin/Clavulanate Potassium 1 tablet 10/17/24 12:13 Amoxicillin/Clavulanate K 500-125 Mg Tab PO 10/20/24 23:59 DAILY PRN DIALYSIS Aspirin 81 mg 10/03/24 09:00 10/19/24 09:22 Aspirin 81 Mg Enteric Tablet PO 81 mg QAM TAMIKA Administration Atorvastatin Calcium 80 mg 10/03/24 09:00 10/19/24 09:24 Atorvastatin 40 Mg Tablet PO 80 mg DAILY TAMIKA Administration Bumetanide 0.5 mg 10/03/24 09:00 10/08/24 08:32 Bumetanide 0.5 Mg Tablet PO 0.5 mg DAILY TAMIKA Administration Buspirone HCl 10 mg 10/03/24 09:00 10/19/24 09:24 Buspirone Hcl 10 Mg Tablet PO 10 mg BID TAMIKA Administration Calcitriol 0.25 mcg 10/03/24 09:00 10/17/24 15:30 Calcitriol 0.25 Mcg Capsule PO Not Given [id number] TAMIKA Dextrose 12.5 gm 10/02/24 17:35 10/17/24 15:55 Dextrose 50% 25 Gm/50 Ml Syringe IV PUSH 12.5 gm PRN PRN Administration Hypoglycemia Protocol Docusate Sodium 100 mg 10/03/24 09:00 10/19/24 09:23 Docusate Sodium 100 Mg Capsule PO 100 mg BID TAMIKA Administration Ezetimibe 10 mg 10/03/24 09:00 10/19/24 09:24 Ezetimibe 10 Mg Tablet PO 10 mg DAILY TAMIKA Administration Empagliflozin 25 mg 10/03/24 09:00 10/17/24 15:30 Empagliflozin 25 Mg Tablet BY MOUTH Not Given QAM REPLACED BY [facility] Fluticasone Propionate 1 spray 10/11/24 21:00 10/19/24 09:28 Fluticasone Propionate 0.05% Na Spr 16 Gm Btl (*Bkc) NASAL 1 spray Q12HR TAMIKA Administration Glucagon 1 mg 10/02/24 17:35 Glucagon For Inj 1 Mg Vial IM PRN PRN Hypoglycemia Protocol Glucose 15 gm 10/02/24 17:35 10/13/24 17:38 Glucose Oral Gel 15 Gm Of Glucse In 37.5 Gm Tube PO 15 gm PRN PRN Administration Hypoglycemia Protocol Guaifenesin 600 mg 10/15/24 12:30 10/19/24 09:24 Guaifenesin 12 Hr 600 Mg Tabcr PO 10/22/24 12:29 600 mg Q12HR TAMIKA Administration Heparin Sodium (Porcine) 5,000 units 10/14/24 21:00 10/19/24 09:24 Heparin Sodium 5,000 Units/Ml Vial SUB-Q 5,000 units Q12HR TAMIKA Administration Dextrose 1,000 mls @ 100 mls/hr 10/02/24 17:35 Dextrose 5% 1,000 Ml IVPB PRN PRN Hypoglycemia Protocol Albumin Human 50 mls @ 999 mls/hr 10/17/24 16:39 Albutein IVPB 11/16/24 16:38 Q10M PRN HYPOTENSION Insulin Aspart 3 - 6 units 10/03/24 08:00 10/19/24 08:51 Insulin Aspart (*Bkc) 100 Units/Ml SUB-Q Not Given TIDWM REPLACED BY [facility] Protocol Insulin Aspart 1 - 3 units 10/02/24 21:00 10/18/24 22:31 Insulin Aspart (*Bkc) 100 Units/Ml SUB-Q Not Given HS REPLACED BY [facility] Protocol Insulin Human Regular 25 units 10/03/24 13:00 10/18/24 14:04 Insulin Human Regular (*Bkc) 100 Units/Ml SUB-Q Not Given DAILY@1200 REPLACED BY [facility] Insulin Human Regular 25 units 10/16/24 09:35 10/18/24 08:22 Insulin Human Regular (*Bkc) 100 Units/Ml SUB-Q 25 units DAILY@0800 REPLACED BY [facility] Administration Isosorbide Mononitrate 90 mg 10/03/24 09:00 10/19/24 09:22 Isosorbide Mononitrate 30 Mg Tab.Er.24h PO 90 mg DAILY REPLACED BY [facility] Administration Loperamide HCl 2 mg 10/13/24 13:26 Loperamide Hcl 2 Mg Capsule PO PRN PRN Diarrhea Morphine Sulfate 2 mg 10/17/24 16:31 Morphine Sulfate (*Crx) 2 Mg/Ml Inj IV PUSH Q2H PRN Breakthrough Pain Rated 7-10 Ondansetron HCl 4 mg 10/02/24 17:35 10/18/24 18:40 Ondansetron Inj 4 Mg/2 Ml Vial IV PUSH 4 mg Q6H PRN Administration Nausea And Vomiting Ondansetron HCl 4 mg 10/18/24 18:21 Ondansetron Inj 4 Mg/2 Ml Vial IV PUSH Q6H PRN Nausea And Vomiting Oxycodone/Acetaminophen 1 tablet 10/17/24 16:31 10/18/24 01:50 Oxycodone/Acetaminophen (*Crx) 5-325 Mg Tablet PO 1 tablet Q4H PRN Administration Pain Rated 4-6 Pantoprazole Sodium 40 mg 10/03/24 21:00 10/18/24 22:24 Pantoprazole 40 Mg Tablet PO 40 mg QHS TAMIKA Administration Polyethylene Glycol 17 gm 10/05/24 14:48 Polyethylene Glycol 3350 17 Gm Powd.Pack PO QAM PRN Constipation Propranolol HCl 80 mg 10/03/24 09:00 10/19/24 09:22 Propranolol Hcl 40 Mg Tablet PO 80 mg TID TAMIKA Administration Sertraline HCl 50 mg 10/02/24 23:10 10/19/24 09:24 Sertraline Hcl 50 Mg Tablet BY MOUTH 50 mg DAILY TAMIKA Administration Sodium Chloride 1 spray 10/11/24 16:22 10/12/24 00:02 Saline 0.65% Fabiano Soln 44 Ml Btl NASAL 1 spray Q6HR PRN Administration Congestion Radiology Results: ITS Impressions Foot X-Ray 10/02/24 14:32 IMPRESSION: 1. Nondisplaced fracture of lateral aspect of head of first proximal phalanx. 2. Nondisplaced stellate fracture of tuft of first distal phalanx. 3. Mild polyarticular osteoarthritis. Renal Ultrasound 10/07/24 11:52 IMPRESSION: 1. 3.4 cm mixed solid and cystic lesion at the upper pole the right kidney with 2 cm solid nodular component which is concerning for renal cell carcinoma. Recommend urologic consultation and further evaluation with pre and postcontrast MRI or CT. 2. No hydronephrosis in either kidney. 3. Trabeculated bladder wall which can be seen with neurogenic bladder or chronic outlet obstruction such as in the setting of prostatomegaly. Renal Scan Nuclear Medicine 10/13/24 14:38 IMPRESSION: 1. Symmetric kidney function. 2. Delayed uptake and clearance of activity from the kidneys, consistent with decreased kidney function. Chest X-Ray 10/17/24 16:14 IMPRESSION: Left internal jugular central venous tunneled hemodialysis catheter in position and ready for immediate use Labs Labs: Laboratory Results - last 24 hr 10/18/24 10/18/24 10/18/24 05:41 14:01 14:23 WBC RBC Hgb Hct MCV MCH MCHC RDW Plt Count MPV Immature Gran % (Auto) Neut % (Auto) Lymph % (Auto) [place] % (Auto) Eos % (Auto) Baso % (Auto) Lymph # (Auto) [place] # (Auto) Eos # (Auto) Baso # (Auto) Abs Immat Gran (auto) Absolute Neuts (auto) Absolute Nucleated RBC Nucleated RBC % Sodium Potassium Chloride Carbon Dioxide Anion Gap BUN Creatinine Estim Creat Clear Calc Estimated GFR Glucose POC Capillary Glucose 71 77 Calcium Phosphorus Magnesium Total Bilirubin AST ALT Alkaline Phosphatase Total Protein Albumin Hep B Core Total Ab Non-reactive 10/18/24 10/18/24 10/19/24 16:58 19:44 06:23 WBC 7.0 RBC 3.03 L Hgb 9.4 L Hct 28.5 L MCV 94.1 MCH 31.0 MCHC 33.0 RDW 14.5 Plt Count 226 MPV 11.0 H Immature Gran % (Auto) 0.9 H Neut % (Auto) 55.2 Lymph % (Auto) 30.6 [place] % (Auto) 11.1 H Eos % (Auto) 1.9 Baso % (Auto) 0.3 Lymph # (Auto) 2.13 [place] # (Auto) 0.8 H Eos # (Auto) 0.1 Baso # (Auto) 0.0 Abs Immat Gran (auto) 0.06 H Absolute Neuts (auto) 3.9 Absolute Nucleated RBC 0.000 Nucleated RBC % 0.0 Sodium 135 L Potassium 4.2 Chloride 102 Carbon Dioxide 24 Anion Gap 9 BUN 44 H D Creatinine 4.71 H Estim Creat Clear Calc 20 Estimated GFR 12 L Glucose 138 H POC Capillary Glucose 136 H 141 H Calcium 7.0 L Phosphorus 4.9 H Magnesium 2.0 Total Bilirubin 0.8 AST 28 ALT 20 Alkaline Phosphatase 134 H Total Protein 6.0 L Albumin 2.5 L Hep B Core Total Ab 10/19/24 07:40 WBC RBC Hgb Hct MCV MCH MCHC RDW Plt Count MPV Immature Gran % (Auto) Neut % (Auto) Lymph % (Auto) [place] % (Auto) Eos % (Auto) Baso % (Auto) Lymph # (Auto) [place] # (Auto) Eos # (Auto) Baso # (Auto) Abs Immat Gran (auto) Absolute Neuts (auto) Absolute Nucleated RBC Nucleated RBC % Sodium Potassium Chloride Carbon Dioxide Anion Gap BUN Creatinine Estim Creat Clear Calc Estimated GFR Glucose POC Capillary Glucose 151 H Calcium Phosphorus Magnesium Total Bilirubin AST ALT Alkaline Phosphatase Total Protein Albumin Hep B Core Total Ab
[2024-10-19 11:01] VITALS: BP 147/75; PULSE 60; RESP 20; TEMP 36.6; O2SAT 98
--- NOTE | 2024-10-19 11:42 | P.PNIM_ITS ---
Progress Note: A&P Assessment and Plan (1) Diabetic foot ulcer: Code(s): E11.621 - Type 2 diabetes mellitus with foot ulcer; L97.509 - Non-pressure chronic ulcer of other part of unspecified foot with unspecified severity Status: Acute Assessment and Plan: patient reports injury to right great toe with worsening symptoms patient has severe diabetes and CAD with poor wound healing initial x-ray did show right great toe was also fractured * CRP elevate no WBC * Surgery consulted if debridement or amputation needed * blood cultures no growth today * wound culture ordered * NPO in case of possible procedure * IV cefepime, vancomycin and Flagyl * Will need close glucose control for any type of wound healing patient is a severely uncontrolled diabetic on high-dose insulin 10/04: * Day 1 post-op * Blood cultures NGTD * inoperative wound culture pending * continue with current ABX therapy will de-escalate with Culture and sensitivity * Plan is surgery 10/06 for amputation due to exposed fractured toe 10/05: * Postop day 2 * normal wbc no fever * blood cultures NGTD * wound culture still pending * surgery tomorrow hold morning Lovenox 10/06 10/06: * Amputation 10/06 * Aerobic culture grew Staphylococcus aureus * De-escalated ABX to doxycycline Augmentin times 14 days. 10/07: * Post-op day 2 * Minimal pain * ABX de-escalated based on sensitivities MSSA * 10/08 post op day 3 no specific complaints awaiting PT evaluation to return home with HH is what pt wants 10/09 - will continue current Augmentin and wound treatment plan 10/10 - will continue current plan of treatment 10/12/24: * Continue Augmentin as ordered. * Continue dressing changes. 10/13/24: * Stable without any complaints of pain. Normal WBC's. * Continue dressings as ordered and Augmentin. 10/14/24: * Stable. * Continue Augmentin through 10/20/24. * Pt reports no pain. * No lab evidence of acute infection. 10/15/24 * Stable. * Continue Augmentin through 10/20/24. * Pt reports no pain. * No lab evidence of acute infection. 10/16/24: * Stable. * Continue Augmentin through 10/20/24. * Pt reports no pain. * No lab evidence of acute infection. 10/17/24: * Stable. * Continue Augmentin through 10/20/24. * Pt reports no pain. * No lab evidence of acute infection. 10/18/24: * Stable. * Continue Augmentin through 10/20/24. * Pt reports no pain. * No lab evidence of acute infection. 10/19/24 * Stable. * Continue Augmentin through 10/20/24. * Pt reports no pain. * No lab evidence of acute infection. (2) Fracture of right great toe: Code(s): S92.401A - Displaced unspecified fracture of right great toe, initial encounter for closed fracture Status: Acute Assessment and Plan: * Nondisplaced fracture of lateral aspect of head of first proximal phalanx. * Nondisplaced stellate fracture of tuft of first distal phalanx. * Orthopedics consulted * Pain management * elevate at rest * Great toe was Amputated - wound management doing well. 10/12/24: * See #1 - s/p amputation (3) Chronic kidney disease, stage 3b: Code(s): N18.32 - Chronic kidney disease, stage 3b Status: Acute Assessment and Plan: Acute on chronic renal failure Baseline around mid 2.5 * CR 3.32 POA * Currently on vancomycin pharmacy to dose will need to deescalate cultures * Avoid nephrotoxic drugs. * Monitor antihypertensive drug therapy. * Avoid NSAIDs. * Routine CMP monitoring GFR. * Monitor electrolytes especially potassium. * Antibiotic doses depending on creatinine clearance. * Pharmacy does medications. 10/07: * Cr continues to trend up 3.37 today * de-escalated ABX therapy and had IV fluids with no improvement * Nephrology consulted for further evaluation or recommendation baseline mid 2's * Renal US pending 10/08 creat is 4 nephrology rounding see recommendations 10/09 - creat - 4.30, BUN 84, GFR 14. Nephrology aware and monitoring. --> will give 1 liter of IV fluids today 10/10 - creat - 4.57, BUN 81, GFR 13, Nephrology aware and monitoring --> Nephrology to follow. Stopped Bumex prior, worsening Renal function. creat - 5.11, BUN 84, GFR 11, K- 5.1 - Nephrology following as well. 10/12/24: * Upward trend in Cr/BUN continues with labs showing 5.29/91 today. * Nephrology is following. * Continue to hold Bumex. * Minimize/eliminate renal offending agents. * Continue to trend renal function with daily labs. 10/13/24: * Acute on chronic progression vs. JUAN CARLOS from COVID * Nephrology continues to follow. * Holding Bumex. * Continue to trend. * NM Renal scan ordered for today. 10/14/24: * NM renal scan shows normal symmetric kidney function and delayed uptake and clearance of activity from within the kidneys, consistent with decreased kidney function. * Interval increase in creatinine to 5.71 today. (3.32 on admission) * Nephrology is following. Etiology uncertain but considers COVID, DM, HTN, Vascular disease and age. * Continue to hold diuretics, but pt is appearing to have some extra fluid on board. * Continue to trend labs. * Minimize renal offending agents. * Low Potassium diet * IVF challenge given again at request of Nephrology. 10/15/24: * NM renal scan shows normal symmetric kidney function and delayed uptake and clearance of activity from within the kidneys, consistent with decreased kidney function. * Creatinine 6.04 today (3.32 on admission). * Nephrology is following. Etiology uncertain but considers COVID, DM, HTN, Vascular disease and age. * Continue to hold diuretics, but pt is appearing to have some extra fluid on board. * Continue to trend labs. * Minimize renal offending agents. * Low Potassium diet 10/16/24: * NM renal scan shows normal symmetric kidney function and delayed uptake and clearance of activity from within the kidneys, consistent with decreased kidney function. * Creatinine 6.43 today (3.32 on admission). * Nephrology is following. Etiology uncertain but considers COVID, DM, HTN, Vascular disease and age. * Continue to hold diuretics, but pt is appearing to have some extra fluid on board. * Continue to trend labs. * Minimize renal offending agents. * Low Potassium diet * NPO after midnight for hemodialysis catheter placement for patient to start hemodialysis. 10/17/24: * NM renal scan shows normal symmetric kidney function and delayed uptake and clearance of activity from within the kidneys, consistent with decreased kidney function. * Creatinine 6.84 today (3.32 on admission). * Nephrology is following. Etiology uncertain but considers COVID, DM, HTN, Vascular disease and age. * Continue to hold diuretics, but pt is appearing to have some extra fluid on board. * Continue to trend labs. * Minimize renal offending agents. * Low Potassium diet * NPO today for hemodialysis catheter placement for patient to start hemodialysis. 10/18/24: * NM renal scan shows normal symmetric kidney function and delayed uptake and clearance of activity from within the kidneys, consistent with decreased kidney function. * Creatinine 5.73 today (3.32 on admission). * Nephrology is following. Etiology uncertain but considers COVID, DM, HTN, Vascular disease and age. * Continue to hold diuretics, but pt is appearing to have some extra fluid on board. * Continue to trend labs. * Minimize renal offending agents. * Low Potassium diet * Hemodialysis today pulled off 519 ml. * follows with Dr. Caprice Gusman for management of his chronic kidney disease 10/19/24: * NM renal scan shows normal symmetric kidney function and delayed uptake and clearance of activity from within the kidneys, consistent with decreased kidney function. * Creatinine 4.71 today (3.32 on admission). * Nephrology is following. Etiology uncertain but considers COVID, DM, HTN, Vascular disease and age. * Continue to hold diuretics, but pt is appearing to have some extra fluid on board. * Continue to trend labs. * Minimize renal offending agents. * Renal dialysis diet * follows with Dr. Caprice Gusman for management of his chronic kidney disease (4) Type 2 diabetes mellitus with diabetic polyneuropathy: Code(s): E11.42 - Type 2 diabetes mellitus with diabetic polyneuropathy Status: Acute Assessment and Plan: * Diabetic diet * Holding semaglutide * Hemoglobin A1c pending * Accuchecks ACHS * SSI moderate dosing added * Patient is hard to control diabetic on several diabetic medication, and high- dose insulin started conversion to U 100 while hospitalized and adjust as need currently 65u/25u/10u * Continue Jardiance and Zetia 10/12/24: * Continue current glycemic regimen. * Monitor and adjust as necessary. 10/13/24: * Fasting glucose this AM is 149. * No further adjustments to insulin dosing. * Continue current regimen for management. 10/14/24: * Current regimen is managing well. * A1C is 7.9. * Continue Diabetic/Low potassium diet. 10/15/24: * Current regimen is managing well. * Continue Diabetic/Low potassium diet. 10/16/24: * Adjusted morning regular insulin to 25 units. * Continue Diabetic/Low potassium diet. 10/17/24: * NPO this morning for hemodialysis catheter placement. * Monitor blood sugars. * Hypoglycemic protocol. * Follow diabetic regimen once able to eat. 10/18/24: * Renal dialysis diet. * Jardiance on hold due to low GFR. 10/19/24: * Monitor blood sugars. * Hypoglycemic protocol. * Renal dialysis diet. * Jardiance on hold due to low GFR. (5) Diastolic dysfunction: Onset Date: 03/2022 Code(s): I51.89 - Other ill-defined heart diseases Status: Chronic Assessment and Plan: * patient does not appear to be in exacerbation * stopped Bumex 10/12/24: * Continues to appear euvolemic. 10/13/24: * Pt with mild edema to the BUE and the BLE, no pitting. Will need continued close monitoring. Continue to hold Bumex. 10/15/24 * Creatinine 6.04, Bumex on hold. 10/16/24: * Creatinine 6.43, Bumex on hold. 10/17/24: * Creatinine 6.84, Bumex on hold. 10/18/24: * Creatinine 5.73, Bumex on hold. 10/19/24: * Creatinine 4.71, Bumex on hold. (6) Presence of aortocoronary bypass graft: Onset Date: 10/2017 Code(s): Z95.1 - Presence of aortocoronary bypass graft Status: Acute Assessment and Plan: * Continue Inderal, Aspirin, Lipitor, an Imdur, Atorvastatin 10/13/24: * Continue current meds. (7) COVID: Code(s): U07.1 - COVID-19 Status: Acute Assessment and Plan: 10/12/24: * Supportive care. * No steroids or other antivirals ordered in setting of no supplemental oxygen required. * PRN nebs ordered. 10/13/24: * Continue supportive care. (8) Renal mass, right: Code(s): N28.89 - Other specified disorders of kidney and ureter Status: Acute Assessment and Plan: 10/12/24: * A 3.4 cm mixed solid and cystic lesion at the upper pole the right kidney with 2 cm solid nodular component which is concerning for renal cell carcinoma. Recommend urologic consultation and further evaluation with pre and postcontrast MRI or CT. * Unable to do further imaging at this time due to renal function. * Urology and Nephrology following. 10/13/24: * Discussed with Dr. Jacobsen whether or not it is appropriate to inquire about doing a biopsy of the renal mass and whether or not that is contributing to his renal function, but he does not believe that it is contributing. He further notes that if there is concern for possible neoplastic disease, typically the mass is just resected and not biopsied. (9) Transaminitis: Code(s): R74.01 - Elevation of levels of liver transaminase levels Status: Acute Assessment and Plan: 10/14/24: * New during this admission. * Most likely etiology is having COVID. * Continue to trend. * Pt asympotmatic. If any development of pain, N/V then would consider RUQ US/CT abd pelvis. 10/17/24: * Alkaline phosphatase: 157. 10/18/24: * Alkaline phosphatase: 147. 10/19/24: * Alkaline phosphatase: 134. (10) Hypocalcemia: Code(s): E83.51 - Hypocalcemia Status: Acute Assessment and Plan: 10/17/24: * Calcium 6.6. * Calcium gluconate 2 gram IVPB given. * Monitor level. 10/18/24: * Calcium 7.2. * Hemodialysis today. 10/19/24: * Calcium 7.0. * Monitor level. Plan Subjective Date/time seen: 10/19/24 11:42 Interval history: Patient reports feeling better today. Patient is hoping to go home soon. Patient denies chest pain, palpitations, headache, dizziness, nausea, or vomiting. Review of Systems Review of Systems: All systems reviewed & are unremarkable except as noted in HPI and below Exam Const: General: comfortable and no acute distress Resp: Effort & Inspection: normal respiratory effort Auscultation: clear to auscultation bilaterally Cardio: Rate: regular rate Rhythm: regular rhythm GI: GI Palp: Yes Soft to palpation Auscultation: normal bowel sounds Skin: Wounds: wounds noted (Right great toe amputated with small amount of dry blood on gauze. Healing.) Neuro: Speech: normal speech Extrem: General: pedal edema bilaterally (trace) Psych: Mental Status: mental status grossly normal Affect: normal affect Objective Data Vital Signs Vital Signs: Vital Signs - 24 hr 10/18/24 11:45 10/18/24 12:00 10/18/24 12:15 Temperature Pulse Rate 58 L 59 L 58 L Respiratory Rate Blood Pressure 153/75 H 157/78 H 154/75 H Pulse Oximetry Oxygen Delivery 10/18/24 12:30 10/18/24 12:45 10/18/24 13:09 Temperature Pulse Rate 58 L 59 L 60 Respiratory Rate Blood Pressure 159/77 H 157/79 H 150/74 H Pulse Oximetry Oxygen Delivery 10/18/24 13:25 10/18/24 14:42 10/18/24 15:40 Temperature 98.4 F 98.1 F Pulse Rate 59 L 67 65 Respiratory Rate 19 16 Blood Pressure 159/79 H 135/63 Pulse Oximetry 96 96 Oxygen Delivery 10/18/24 20:00 10/18/24 20:00 10/19/24 00:00 Temperature 99.0 F 98.7 F Pulse Rate 62 65 Respiratory Rate 16 20 Blood Pressure 134/72 131/72 Pulse Oximetry 93 94 Oxygen Delivery Room Air 10/19/24 04:00 10/19/24 09:22 10/19/24 09:22 Temperature 98.1 F Pulse Rate 62 74 Respiratory Rate 20 Blood Pressure 142/88 H Pulse Oximetry 97 Oxygen Delivery Room Air 10/19/24 11:01 Temperature 97.8 F Pulse Rate 60 Respiratory Rate 20 Blood Pressure 147/75 H Pulse Oximetry 98 Oxygen Delivery Intake/Output Intake/Output: Intake & Output 10/16/24 10/17/24 10/18/24 10/19/24 23:59 23:59 23:59 23:59 Intake Total 0544 912 2854 880 Output Total 225 600 769 Balance 1095 390 401 880 Meds/Results Medications: Active Medications Generic Name Dose Route Start Last Admin Trade Name Freq PRN Reason Stop Dose Admin Acetaminophen 650 mg 10/02/24 16:55 10/12/24 00:01 Acetaminophen 325 Mg Tablet PO 650 mg Q4H PRN Administration Mild Pain (1-3) or Fever Albuterol 2.5 mg 10/12/24 13:19 Albuterol Sulfate Neb 2.5 Mg/3 Ml Inh INHALATION Q4HRT PRN Shortness Of Breath Amoxicillin/Clavulanate Potassium 1 tablet 10/17/24 12:15 10/19/24 09:22 Amoxicillin/Clavulanate K 500-125 Mg Tab PO 10/20/24 09:01 1 tablet DAILY TAMIKA Administration Amoxicillin/Clavulanate Potassium 1 tablet 10/17/24 12:13 Amoxicillin/Clavulanate K 500-125 Mg Tab PO 10/20/24 23:59 DAILY PRN DIALYSIS Aspirin 81 mg 10/03/24 09:00 10/19/24 09:22 Aspirin 81 Mg Enteric Tablet PO 81 mg QAM TAMIKA Administration Atorvastatin Calcium 80 mg 10/03/24 09:00 10/19/24 09:24 Atorvastatin 40 Mg Tablet PO 80 mg DAILY TAMIKA Administration Bumetanide 0.5 mg 10/03/24 09:00 10/08/24 08:32 Bumetanide 0.5 Mg Tablet PO 0.5 mg DAILY TAMIKA Administration Buspirone HCl 10 mg 10/03/24 09:00 10/19/24 09:24 Buspirone Hcl 10 Mg Tablet PO 10 mg BID TAMIKA Administration Calcitriol 0.25 mcg 10/03/24 09:00 10/17/24 15:30 Calcitriol 0.25 Mcg Capsule PO Not Given [id number] TAMIKA Dextrose 12.5 gm 10/02/24 17:35 10/17/24 15:55 Dextrose 50% 25 Gm/50 Ml Syringe IV PUSH 12.5 gm PRN PRN Administration Hypoglycemia Protocol Docusate Sodium 100 mg 10/03/24 09:00 10/19/24 09:23 Docusate Sodium 100 Mg Capsule PO 100 mg BID TAMIKA Administration Ezetimibe 10 mg 10/03/24 09:00 10/19/24 09:24 Ezetimibe 10 Mg Tablet PO 10 mg DAILY TAMIKA Administration Empagliflozin 25 mg 10/03/24 09:00 10/17/24 15:30 Empagliflozin 25 Mg Tablet BY MOUTH Not Given QAM TAMIKA Fluticasone Propionate 1 spray 10/11/24 21:00 10/19/24 09:28 Fluticasone Propionate 0.05% Na Spr 16 Gm Btl (*Bkc) NASAL 1 spray Q12HR TAMIKA Administration Glucagon 1 mg 10/02/24 17:35 Glucagon For Inj 1 Mg Vial IM PRN PRN Hypoglycemia Protocol Glucose 15 gm 10/02/24 17:35 10/13/24 17:38 Glucose Oral Gel 15 Gm Of Glucse In 37.5 Gm Tube PO 15 gm PRN PRN Administration Hypoglycemia Protocol Guaifenesin 600 mg 10/15/24 12:30 10/19/24 09:24 Guaifenesin 12 Hr 600 Mg Tabcr PO 10/22/24 12:29 600 mg Q12HR TAMIKA Administration Heparin Sodium (Porcine) 5,000 units 10/14/24 21:00 10/19/24 09:24 Heparin Sodium 5,000 Units/Ml Vial SUB-Q 5,000 units Q12HR TAMIKA Administration Dextrose 1,000 mls @ 100 mls/hr 10/02/24 17:35 Dextrose 5% 1,000 Ml IVPB PRN PRN Hypoglycemia Protocol Albumin Human 50 mls @ 999 mls/hr 10/17/24 16:39 Albutein IVPB 11/16/24 16:38 Q10M PRN HYPOTENSION Insulin Aspart 3 - 6 units 10/03/24 08:00 10/19/24 08:51 Insulin Aspart (*Bkc) 100 Units/Ml SUB-Q Not Given TIDWM [facility] Protocol Insulin Aspart 1 - 3 units 10/02/24 21:00 10/18/24 22:31 Insulin Aspart (*Bkc) 100 Units/Ml SUB-Q Not Given HS [facility] Protocol Insulin Human Regular 25 units 10/03/24 13:00 10/18/24 14:04 Insulin Human Regular (*Bkc) 100 Units/Ml SUB-Q Not Given DAILY@1200 [facility] Insulin Human Regular 25 units 10/16/24 09:35 10/18/24 08:22 Insulin Human Regular (*Bkc) 100 Units/Ml SUB-Q 25 units DAILY@0800 TAMIKA Administration Isosorbide Mononitrate 90 mg 10/03/24 09:00 10/19/24 09:22 Isosorbide Mononitrate 30 Mg Tab.Er.24h PO 90 mg DAILY TAMIKA Administration Loperamide HCl 2 mg 10/13/24 13:26 Loperamide Hcl 2 Mg Capsule PO PRN PRN Diarrhea Morphine Sulfate 2 mg 10/17/24 16:31 Morphine Sulfate (*Crx) 2 Mg/Ml Inj IV PUSH Q2H PRN Breakthrough Pain Rated 7-10 Ondansetron HCl 4 mg 10/02/24 17:35 10/18/24 18:40 Ondansetron Inj 4 Mg/2 Ml Vial IV PUSH 4 mg Q6H PRN Administration Nausea And Vomiting Ondansetron HCl 4 mg 10/18/24 18:21 Ondansetron Inj 4 Mg/2 Ml Vial IV PUSH Q6H PRN Nausea And Vomiting Oxycodone/Acetaminophen 1 tablet 10/17/24 16:31 10/18/24 01:50 Oxycodone/Acetaminophen (*Crx) 5-325 Mg Tablet PO 1 tablet Q4H PRN Administration Pain Rated 4-6 Pantoprazole Sodium 40 mg 10/03/24 21:00 10/18/24 22:24 Pantoprazole 40 Mg Tablet PO 40 mg QHS TAMIKA Administration Polyethylene Glycol 17 gm 10/05/24 14:48 Polyethylene Glycol 3350 17 Gm Powd.Pack PO QAM PRN Constipation Propranolol HCl 80 mg 10/03/24 09:00 10/19/24 09:22 Propranolol Hcl 40 Mg Tablet PO 80 mg TID TAMIKA Administration Sertraline HCl 50 mg 10/02/24 23:10 10/19/24 09:24 Sertraline Hcl 50 Mg Tablet BY MOUTH 50 mg DAILY TAMIKA Administration Sodium Chloride 1 spray 10/11/24 16:22 10/12/24 00:02 Saline 0.65% Fabiano Soln 44 Ml Btl NASAL 1 spray Q6HR PRN Administration Congestion Radiology Results: ITS Impressions Foot X-Ray 10/02/24 14:32 IMPRESSION: 1. Nondisplaced fracture of lateral aspect of head of first proximal phalanx. 2. Nondisplaced stellate fracture of tuft of first distal phalanx. 3. Mild polyarticular osteoarthritis. Renal Ultrasound 10/07/24 11:52 IMPRESSION: 1. 3.4 cm mixed solid and cystic lesion at the upper pole the right kidney with 2 cm solid nodular component which is concerning for renal cell carcinoma. Recommend urologic consultation and further evaluation with pre and postcontrast MRI or CT. 2. No hydronephrosis in either kidney. 3. Trabeculated bladder wall which can be seen with neurogenic bladder or chronic outlet obstruction such as in the setting of prostatomegaly. Renal Scan Nuclear Medicine 10/13/24 14:38 IMPRESSION: 1. Symmetric kidney function. 2. Delayed uptake and clearance of activity from the kidneys, consistent with decreased kidney function. Chest X-Ray 10/17/24 16:14 IMPRESSION: Left internal jugular central venous tunneled hemodialysis catheter in position and ready for immediate use Labs Labs: Laboratory Results - last 24 hr 10/18/24 10/18/24 10/18/24 05:41 14:01 14:23 WBC RBC Hgb Hct MCV MCH MCHC RDW Plt Count MPV Immature Gran % (Auto) Neut % (Auto) Lymph % (Auto) [place] % (Auto) Eos % (Auto) Baso % (Auto) Lymph # (Auto) [place] # (Auto) Eos # (Auto) Baso # (Auto) Abs Immat Gran (auto) Absolute Neuts (auto) Absolute Nucleated RBC Nucleated RBC % Sodium Potassium Chloride Carbon Dioxide Anion Gap BUN Creatinine Estim Creat Clear Calc Estimated GFR Glucose POC Capillary Glucose 71 77 Calcium Phosphorus Magnesium Total Bilirubin AST ALT Alkaline Phosphatase Total Protein Albumin Hep B Core Total Ab Non-reactive 10/18/24 10/18/24 10/19/24 16:58 19:44 06:23 WBC 7.0 RBC 3.03 L Hgb 9.4 L Hct 28.5 L MCV 94.1 MCH 31.0 MCHC 33.0 RDW 14.5 Plt Count 226 MPV 11.0 H Immature Gran % (Auto) 0.9 H Neut % (Auto) 55.2 Lymph % (Auto) 30.6 [place] % (Auto) 11.1 H Eos % (Auto) 1.9 Baso % (Auto) 0.3 Lymph # (Auto) 2.13 [place] # (Auto) 0.8 H Eos # (Auto) 0.1 Baso # (Auto) 0.0 Abs Immat Gran (auto) 0.06 H Absolute Neuts (auto) 3.9 Absolute Nucleated RBC 0.000 Nucleated RBC % 0.0 Sodium 135 L Potassium 4.2 Chloride 102 Carbon Dioxide 24 Anion Gap 9 BUN 44 H D Creatinine 4.71 H Estim Creat Clear Calc 20 Estimated GFR 12 L Glucose 138 H POC Capillary Glucose 136 H 141 H Calcium 7.0 L Phosphorus 4.9 H Magnesium 2.0 Total Bilirubin 0.8 AST 28 ALT 20 Alkaline Phosphatase 134 H Total Protein 6.0 L Albumin 2.5 L Hep B Core Total Ab 10/19/24 07:40 WBC RBC Hgb Hct MCV MCH MCHC RDW Plt Count MPV Immature Gran % (Auto) Neut % (Auto) Lymph % (Auto) [place] % (Auto) Eos % (Auto) Baso % (Auto) Lymph # (Auto) [place] # (Auto) Eos # (Auto) Baso # (Auto) Abs Immat Gran (auto) Absolute Neuts (auto) Absolute Nucleated RBC Nucleated RBC % Sodium Potassium Chloride Carbon Dioxide Anion Gap BUN Creatinine Estim Creat Clear Calc Estimated GFR Glucose POC Capillary Glucose 151 H Calcium Phosphorus Magnesium Total Bilirubin AST ALT Alkaline Phosphatase Total Protein Albumin Hep B Core Total Ab Quality VTE Prophylaxis VTE prophylaxis: mechanical ordered and pharmacologic ordered
--- NOTE | 2024-10-19 11:42 | PM.IMPN ---
Progress Note: A&P Assessment and Plan (1) Diabetic foot ulcer: Code(s): E11.621 - Type 2 diabetes mellitus with foot ulcer; L97.509 - Non-pressure chronic ulcer of other part of unspecified foot with unspecified severity Status: Acute Assessment and Plan: patient reports injury to right great toe with worsening symptoms patient has severe diabetes and CAD with poor wound healing initial x-ray did show right great toe was also fractured CRP elevate no WBC Surgery consulted if debridement or amputation needed blood cultures no growth today wound culture ordered NPO in case of possible procedure IV cefepime, vancomycin and Flagyl Will need close glucose control for any type of wound healing patient is a severely uncontrolled diabetic on high-dose insulin 10/04: Day 1 post-op Blood cultures NGTD inoperative wound culture pending continue with current ABX therapy will de-escalate with Culture and sensitivity Plan is surgery 10/06 for amputation due to exposed fractured toe 10/05: Postop day 2 normal wbc no fever blood cultures NGTD wound culture still pending surgery tomorrow hold morning Lovenox 10/06 10/06: Amputation 10/06 Aerobic culture grew Staphylococcus aureus De-escalated ABX to doxycycline Augmentin times 14 days. 10/07: Post-op day 2 Minimal pain ABX de-escalated based on sensitivities MSSA 10/08 post op day 3 no specific complaints awaiting PT evaluation to return home with HH is what pt wants 10/09 - will continue current Augmentin and wound treatment plan 10/10 - will continue current plan of treatment 10/12/24: Continue Augmentin as ordered. Continue dressing changes. 10/13/24: Stable without any complaints of pain. Normal WBC's. Continue dressings as ordered and Augmentin. 10/14/24: Stable. Continue Augmentin through 10/20/24. Pt reports no pain. No lab evidence of acute infection. 10/15/24 Stable. Continue Augmentin through 10/20/24. Pt reports no pain. No lab evidence of acute infection. 10/16/24: Stable. Continue Augmentin through 10/20/24. Pt reports no pain. No lab evidence of acute infection. 10/17/24: Stable. Continue Augmentin through 10/20/24. Pt reports no pain. No lab evidence of acute infection. 10/18/24: Stable. Continue Augmentin through 10/20/24. Pt reports no pain. No lab evidence of acute infection. 10/19/24 Stable. Continue Augmentin through 10/20/24. Pt reports no pain. No lab evidence of acute infection. (2) Fracture of right great toe: Code(s): S92.401A - Displaced unspecified fracture of right great toe, initial encounter for closed fracture Status: Acute Assessment and Plan: Nondisplaced fracture of lateral aspect of head of first proximal phalanx. Nondisplaced stellate fracture of tuft of first distal phalanx. Orthopedics consulted Pain management elevate at rest Great toe was Amputated - wound management doing well. 10/12/24: See #1 - s/p amputation (3) Chronic kidney disease, stage 3b: Code(s): N18.32 - Chronic kidney disease, stage 3b Status: Acute Assessment and Plan: Acute on chronic renal failure Baseline around mid 2.5 CR 3.32 POA Currently on vancomycin pharmacy to dose will need to deescalate cultures Avoid nephrotoxic drugs. Monitor antihypertensive drug therapy. Avoid NSAIDs. Routine CMP monitoring GFR. Monitor electrolytes especially potassium. Antibiotic doses depending on creatinine clearance. Pharmacy does medications. 10/07: Cr continues to trend up 3.37 today de-escalated ABX therapy and had IV fluids with no improvement Nephrology consulted for further evaluation or recommendation baseline mid 2's Renal US pending 10/08 creat is 4 nephrology rounding see recommendations 10/09 - creat - 4.30, BUN 84, GFR 14. Nephrology aware and monitoring. --> will give 1 liter of IV fluids today 10/10 - creat - 4.57, BUN 81, GFR 13, Nephrology aware and monitoring --> Nephrology to follow. Stopped Bumex prior, worsening Renal function. 10/11/ creat - 5.11, BUN 84, GFR 11, K- 5.1 - Nephrology following as well. 10/12/24: Upward trend in Cr/BUN continues with labs showing 5.29/ today. Nephrology is following. Continue to hold Bumex. Minimize/eliminate renal offending agents. Continue to trend renal function with daily labs. 10/13/24: Acute on chronic progression vs. JUAN CARLOS from COVID Nephrology continues to follow. Holding Bumex. Continue to trend. NM Renal scan ordered for today. 10/14/24: NM renal scan shows normal symmetric kidney function and delayed uptake and clearance of activity from within the kidneys, consistent with decreased kidney function. Interval increase in creatinine to 5.71 today. (3.32 on admission) Nephrology is following. Etiology uncertain but considers COVID, DM, HTN, Vascular disease and age. Continue to hold diuretics, but pt is appearing to have some extra fluid on board. Continue to trend labs. Minimize renal offending agents. Low Potassium diet IVF challenge given again at request of Nephrology. 10/15/24: NM renal scan shows normal symmetric kidney function and delayed uptake and clearance of activity from within the kidneys, consistent with decreased kidney function. Creatinine 6.04 today (3.32 on admission). Nephrology is following. Etiology uncertain but considers COVID, DM, HTN, Vascular disease and age. Continue to hold diuretics, but pt is appearing to have some extra fluid on board. Continue to trend labs. Minimize renal offending agents. Low Potassium diet 10/16/24: NM renal scan shows normal symmetric kidney function and delayed uptake and clearance of activity from within the kidneys, consistent with decreased kidney function. Creatinine 6.43 today (3.32 on admission). Nephrology is following. Etiology uncertain but considers COVID, DM, HTN, Vascular disease and age. Continue to hold diuretics, but pt is appearing to have some extra fluid on board. Continue to trend labs. Minimize renal offending agents. Low Potassium diet NPO after midnight for hemodialysis catheter placement for patient to start hemodialysis. 10/17/24: NM renal scan shows normal symmetric kidney function and delayed uptake and clearance of activity from within the kidneys, consistent with decreased kidney function. Creatinine 6.84 today (3.32 on admission). Nephrology is following. Etiology uncertain but considers COVID, DM, HTN, Vascular disease and age. Continue to hold diuretics, but pt is appearing to have some extra fluid on board. Continue to trend labs. Minimize renal offending agents. Low Potassium diet NPO today for hemodialysis catheter placement for patient to start hemodialysis. 10/18/24: NM renal scan shows normal symmetric kidney function and delayed uptake and clearance of activity from within the kidneys, consistent with decreased kidney function. Creatinine 5.73 today (3.32 on admission). Nephrology is following. Etiology uncertain but considers COVID, DM, HTN, Vascular disease and age. Continue to hold diuretics, but pt is appearing to have some extra fluid on board. Continue to trend labs. Minimize renal offending agents. Low Potassium diet Hemodialysis today pulled off [address] Caprice Gusman for management of his chronic kidney disease 10/19/24: NM renal scan shows normal symmetric kidney function and delayed uptake and clearance of activity from within the kidneys, consistent with decreased kidney function. Creatinine 4.71 today (3.32 on admission). Nephrology is following. Etiology uncertain but considers COVID, DM, HTN, Vascular disease and age. Continue to hold diuretics, but pt is appearing to have some extra fluid on board. Continue to trend labs. Minimize renal offending agents. Renal dialysis diet follows with Dr. Caprice Gusman for management of his chronic kidney disease (4) Type 2 diabetes mellitus with diabetic polyneuropathy: Code(s): E11.42 - Type 2 diabetes mellitus with diabetic polyneuropathy Status: Acute Assessment and Plan: Diabetic diet Holding semaglutide Hemoglobin A1c pending Accuchecks ACHS SSI moderate dosing added Patient is hard to control diabetic on several diabetic medication, and high-dose insulin started conversion to U 100 while hospitalized and adjust as need currently 65u/25u/10u Continue Jardiance and Zetia 10/12/24: Continue current glycemic regimen. Monitor and adjust as necessary. 10/13/24: Fasting glucose this AM is 149. No further adjustments to insulin dosing. Continue current regimen for management. 10/14/24: Current regimen is managing well. A1C is 7.9. Continue Diabetic/Low potassium diet. 10/15/24: Current regimen is managing well. Continue Diabetic/Low potassium diet. 10/16/24: Adjusted morning regular insulin to 25 units. Continue Diabetic/Low potassium diet. 10/17/24: NPO this morning for hemodialysis catheter placement. Monitor blood sugars. Hypoglycemic protocol. Follow diabetic regimen once able to eat. 10/18/24: Renal dialysis diet. Jardiance on hold due to low GFR. 10/19/24: Monitor blood sugars. Hypoglycemic protocol. Renal dialysis diet. Jardiance on hold due to low GFR. (5) Diastolic dysfunction: Onset Date: 03/2022 Code(s): I51.89 - Other ill-defined heart diseases Status: Chronic Assessment and Plan: patient does not appear to be in exacerbation stopped Bumex 10/12/24: Continues to appear euvolemic. 10/13/24: Pt with mild edema to the BUE and the BLE, no pitting. Will need continued close monitoring. Continue to hold Bumex. 10/15/24 Creatinine 6.04, Bumex on hold. 10/16/24: Creatinine 6.43, Bumex on hold. 10/17/24: Creatinine 6.84, Bumex on hold. 10/18/24: Creatinine 5.73, Bumex on hold. 10/19/24: Creatinine 4.71, Bumex on hold. (6) Presence of aortocoronary bypass graft: Onset Date: 10/2017 Code(s): Z95.1 - Presence of aortocoronary bypass graft Status: Acute Assessment and Plan: Continue Inderal, Aspirin, Lipitor, an Imdur, Atorvastatin 10/13/24: Continue current meds. (7) COVID: Code(s): U07.1 - COVID-19 Status: Acute Assessment and Plan: 10/12/24: Supportive care. No steroids or other antivirals ordered in setting of no supplemental oxygen required. PRN nebs ordered. 10/13/24: Continue supportive care. (8) Renal mass, right: Code(s): N28.89 - Other specified disorders of kidney and ureter Status: Acute Assessment and Plan: 10/12/24: A 3.4 cm mixed solid and cystic lesion at the upper pole the right kidney with 2 cm solid nodular component which is concerning for renal cell carcinoma. Recommend urologic consultation and further evaluation with pre and postcontrast MRI or CT. Unable to do further imaging at this time due to renal function. Urology and Nephrology following. 10/13/24: Discussed with Dr. Jacobsen whether or not it is appropriate to inquire about doing a biopsy of the renal mass and whether or not that is contributing to his renal function, but he does not believe that it is contributing. He further notes that if there is concern for possible neoplastic disease, typically the mass is just resected and not biopsied. (9) Transaminitis: Code(s): R74.01 - Elevation of levels of liver transaminase levels Status: Acute Assessment and Plan: 10/14/24: New during this admission. Most likely etiology is having COVID. Continue to trend. Pt asympotmatic. If any development of pain, N/V then would consider RUQ US/CT abd pelvis. 10/17/24: Alkaline phosphatase: 157. 10/18/24: Alkaline phosphatase: 147. 10/19/24: Alkaline phosphatase: 134. (10) Hypocalcemia: Code(s): E83.51 - Hypocalcemia Status: Acute Assessment and Plan: 10/17/24: Calcium 6.6. Calcium gluconate 2 gram IVPB given. Monitor level. 10/18/24: Calcium 7.2. Hemodialysis today. 10/19/24: Calcium 7.0. Monitor level. Plan Subjective Date/time seen: 10/19/24 11:42 Interval history: Patient reports feeling better today. Patient is hoping to go home soon. Patient denies chest pain, palpitations, headache, dizziness, nausea, or vomiting. Review of Systems Review of Systems: All systems reviewed & are unremarkable except as noted in HPI and below Exam Const: General: comfortable and no acute distress Resp: Effort & Inspection: normal respiratory effort Auscultation: clear to auscultation bilaterally Cardio: Rate: regular rate Rhythm: regular rhythm GI: GI Palp: Yes Soft to palpation Auscultation: normal bowel sounds Skin: Wounds: wounds noted (Right great toe amputated with small amount of dry blood on gauze. Healing.) Neuro: Speech: normal speech Extrem: General: pedal edema bilaterally (trace) Psych: Mental Status: mental status grossly normal Affect: normal affect Objective Data Vital Signs Vital Signs: Vital Signs - 24 hr 10/18/24 11:45 10/18/24 12:00 10/18/24 12:15 Temperature Pulse Rate 58 L 59 L 58 L Respiratory Rate Blood Pressure 153/75 H 157/78 H 154/75 H Pulse Oximetry Oxygen Delivery 10/18/24 12:30 10/18/24 12:45 10/18/24 13:09 Temperature Pulse Rate 58 L 59 L 60 Respiratory Rate Blood Pressure 159/77 H 157/79 H 150/74 H Pulse Oximetry Oxygen Delivery 10/18/24 13:25 10/18/24 14:42 10/18/24 15:40 Temperature 98.4 F 98.1 F Pulse Rate 59 L 67 65 Respiratory Rate 19 16 Blood Pressure 159/79 H 135/63 Pulse Oximetry 96 96 Oxygen Delivery 10/18/24 20:00 10/18/24 20:00 10/19/24 00:00 Temperature 99.0 F 98.7 F Pulse Rate 62 65 Respiratory Rate 16 20 Blood Pressure 134/72 131/72 Pulse Oximetry 93 94 Oxygen Delivery Room Air 10/19/24 04:00 10/19/24 09:22 10/19/24 09:22 Temperature 98.1 F Pulse Rate 62 74 Respiratory Rate 20 Blood Pressure 142/88 H Pulse Oximetry 97 Oxygen Delivery Room Air 10/19/24 11:01 Temperature 97.8 F Pulse Rate 60 Respiratory Rate 20 Blood Pressure 147/75 H Pulse Oximetry 98 Oxygen Delivery Intake/Output Intake/Output: Intake & Output 10/16/24 10/17/24 10/18/24 10/19/24 23:59 23:59 23:59 23:59 Intake Total 0981 688 8831 880 Output Total 225 600 769 Balance 1095 390 401 880 Meds/Results Medications: Active Medications Generic Name Dose Route Start Last Admin Trade Name Freq PRN Reason Stop Dose Admin Acetaminophen 650 mg 10/02/24 16:55 10/12/24 00:01 Acetaminophen 325 Mg Tablet PO 650 mg Q4H PRN Administration Mild Pain (1-3) or Fever Albuterol 2.5 mg 10/12/24 13:19 Albuterol Sulfate Neb 2.5 Mg/3 Ml Inh INHALATION Q4HRT PRN Shortness Of Breath Amoxicillin/Clavulanate Potassium 1 tablet 10/17/24 12:15 10/19/24 09:22 Amoxicillin/Clavulanate K 500-125 Mg Tab PO 10/20/24 09:01 1 tablet DAILY TAMIKA Administration Amoxicillin/Clavulanate Potassium 1 tablet 10/17/24 12:13 Amoxicillin/Clavulanate K 500-125 Mg Tab PO 10/20/24 23:59 DAILY PRN DIALYSIS Aspirin 81 mg 10/03/24 09:00 10/19/24 09:22 Aspirin 81 Mg Enteric Tablet PO 81 mg QAM TAMIKA Administration Atorvastatin Calcium 80 mg 10/03/24 09:00 10/19/24 09:24 Atorvastatin 40 Mg Tablet PO 80 mg DAILY TAMIKA Administration Bumetanide 0.5 mg 10/03/24 09:00 10/08/24 08:32 Bumetanide 0.5 Mg Tablet PO 0.5 mg DAILY TAMIKA Administration Buspirone HCl 10 mg 10/03/24 09:00 10/19/24 09:24 Buspirone Hcl 10 Mg Tablet PO 10 mg BID TAMIKA Administration Calcitriol 0.25 mcg 10/03/24 09:00 10/17/24 15:30 Calcitriol 0.25 Mcg Capsule PO Not Given [id number] TAMIKA Dextrose 12.5 gm 10/02/24 17:35 10/17/24 15:55 Dextrose 50% 25 Gm/50 Ml Syringe IV PUSH 12.5 gm PRN PRN Administration Hypoglycemia Protocol Docusate Sodium 100 mg 10/03/24 09:00 10/19/24 09:23 Docusate Sodium 100 Mg Capsule PO 100 mg BID TAMIKA Administration Ezetimibe 10 mg 10/03/24 09:00 10/19/24 09:24 Ezetimibe 10 Mg Tablet PO 10 mg DAILY TAMIKA Administration Empagliflozin 25 mg 10/03/24 09:00 10/17/24 15:30 Empagliflozin 25 Mg Tablet BY MOUTH Not Given QAM [facility] Fluticasone Propionate 1 spray 10/11/24 21:00 10/19/24 09:28 Fluticasone Propionate 0.05% Na Spr 16 Gm Btl (*Bkc) NASAL 1 spray Q12HR TAMIKA Administration Glucagon 1 mg 10/02/24 17:35 Glucagon For Inj 1 Mg Vial IM PRN PRN Hypoglycemia Protocol Glucose 15 gm 10/02/24 17:35 10/13/24 17:38 Glucose Oral Gel 15 Gm Of Glucse In 37.5 Gm Tube PO 15 gm PRN PRN Administration Hypoglycemia Protocol Guaifenesin 600 mg 10/15/24 12:30 10/19/24 09:24 Guaifenesin 12 Hr 600 Mg Tabcr PO 10/22/24 12:29 600 mg Q12HR TAMIKA Administration Heparin Sodium (Porcine) 5,000 units 10/14/24 21:00 10/19/24 09:24 Heparin Sodium 5,000 Units/Ml Vial SUB-Q 5,000 units Q12HR TAMIKA Administration Dextrose 1,000 mls @ 100 mls/hr 10/02/24 17:35 Dextrose 5% 1,000 Ml IVPB PRN PRN Hypoglycemia Protocol Albumin Human 50 mls @ 999 mls/hr 10/17/24 16:39 Albutein IVPB 11/16/24 16:38 Q10M PRN HYPOTENSION Insulin Aspart 3 - 6 units 10/03/24 08:00 10/19/24 08:51 Insulin Aspart (*Bkc) 100 Units/Ml SUB-Q Not Given TIDWM [facility] Protocol Insulin Aspart 1 - 3 units 10/02/24 21:00 10/18/24 22:31 Insulin Aspart (*Bkc) 100 Units/Ml SUB-Q Not Given HS [facility] Protocol Insulin Human Regular 25 units 10/03/24 13:00 10/18/24 14:04 Insulin Human Regular (*Bkc) 100 Units/Ml SUB-Q Not Given DAILY@1200 [facility] Insulin Human Regular 25 units 10/16/24 09:35 10/18/24 08:22 Insulin Human Regular (*Bkc) 100 Units/Ml SUB-Q 25 units DAILY@0800 [facility] Administration Isosorbide Mononitrate 90 mg 10/03/24 09:00 10/19/24 09:22 Isosorbide Mononitrate 30 Mg Tab.Er.24h PO 90 mg DAILY [facility] Administration Loperamide HCl 2 mg 10/13/24 13:26 Loperamide Hcl 2 Mg Capsule PO PRN PRN Diarrhea Morphine Sulfate 2 mg 10/17/24 16:31 Morphine Sulfate (*Crx) 2 Mg/Ml Inj IV PUSH Q2H PRN Breakthrough Pain Rated 7-10 Ondansetron HCl 4 mg 10/02/24 17:35 10/18/24 18:40 Ondansetron Inj 4 Mg/2 Ml Vial IV PUSH 4 mg Q6H PRN Administration Nausea And Vomiting Ondansetron HCl 4 mg 10/18/24 18:21 Ondansetron Inj 4 Mg/2 Ml Vial IV PUSH Q6H PRN Nausea And Vomiting Oxycodone/Acetaminophen 1 tablet 10/17/24 16:31 10/18/24 01:50 Oxycodone/Acetaminophen (*Crx) 5-325 Mg Tablet PO 1 tablet Q4H PRN Administration Pain Rated 4-6 Pantoprazole Sodium 40 mg 10/03/24 21:00 10/18/24 22:24 Pantoprazole 40 Mg Tablet PO 40 mg QHS TAMIKA Administration Polyethylene Glycol 17 gm 10/05/24 14:48 Polyethylene Glycol 3350 17 Gm Powd.Pack PO QAM PRN Constipation Propranolol HCl 80 mg 10/03/24 09:00 10/19/24 09:22 Propranolol Hcl 40 Mg Tablet PO 80 mg TID TAMIKA Administration Sertraline HCl 50 mg 10/02/24 23:10 10/19/24 09:24 Sertraline Hcl 50 Mg Tablet BY MOUTH 50 mg DAILY TAMIKA Administration Sodium Chloride 1 spray 10/11/24 16:22 10/12/24 00:02 Saline 0.65% Fabiano Soln 44 Ml Btl NASAL 1 spray Q6HR PRN Administration Congestion Radiology Results: ITS Impressions Foot X-Ray 10/02/24 14:32 IMPRESSION: 1. Nondisplaced fracture of lateral aspect of head of first proximal phalanx. 2. Nondisplaced stellate fracture of tuft of first distal phalanx. 3. Mild polyarticular osteoarthritis. Renal Ultrasound 10/07/24 11:52 IMPRESSION: 1. 3.4 cm mixed solid and cystic lesion at the upper pole the right kidney with 2 cm solid nodular component which is concerning for renal cell carcinoma. Recommend urologic consultation and further evaluation with pre and postcontrast MRI or CT. 2. No hydronephrosis in either kidney. 3. Trabeculated bladder wall which can be seen with neurogenic bladder or chronic outlet obstruction such as in the setting of prostatomegaly. Renal Scan Nuclear Medicine 10/13/24 14:38 IMPRESSION: 1. Symmetric kidney function. 2. Delayed uptake and clearance of activity from the kidneys, consistent with decreased kidney function. Chest X-Ray 10/17/24 16:14 IMPRESSION: Left internal jugular central venous tunneled hemodialysis catheter in position and ready for immediate use Labs Labs: Laboratory Results - last 24 hr 10/18/24 10/18/24 10/18/24 05:41 14:01 14:23 WBC RBC Hgb Hct MCV MCH MCHC RDW Plt Count MPV Immature Gran % (Auto) Neut % (Auto) Lymph % (Auto) Cross % (Auto) Eos % (Auto) Baso % (Auto) Lymph # (Auto) Cross # (Auto) Eos # (Auto) Baso # (Auto) Abs Immat Gran (auto) Absolute Neuts (auto) Absolute Nucleated RBC Nucleated RBC % Sodium Potassium Chloride Carbon Dioxide Anion Gap BUN Creatinine Estim Creat Clear Calc Estimated GFR Glucose POC Capillary Glucose 71 77 Calcium Phosphorus Magnesium Total Bilirubin AST ALT Alkaline Phosphatase Total Protein Albumin Hep B Core Total Ab Non-reactive 10/18/24 10/18/24 10/19/24 16:58 19:44 06:23 WBC 7.0 RBC 3.03 L Hgb 9.4 L Hct 28.5 L MCV 94.1 MCH 31.0 MCHC 33.0 RDW 14.5 Plt Count 226 MPV 11.0 H Immature Gran % (Auto) 0.9 H Neut % (Auto) 55.2 Lymph % (Auto) 30.6 Cross % (Auto) 11.1 H Eos % (Auto) 1.9 Baso % (Auto) 0.3 Lymph # (Auto) 2.13 Cross # (Auto) 0.8 H Eos # (Auto) 0.1 Baso # (Auto) 0.0 Abs Immat Gran (auto) 0.06 H Absolute Neuts (auto) 3.9 Absolute Nucleated RBC 0.000 Nucleated RBC % 0.0 Sodium 135 L Potassium 4.2 Chloride 102 Carbon Dioxide 24 Anion Gap 9 BUN 44 H D Creatinine 4.71 H Estim Creat Clear Calc 20 Estimated GFR 12 L Glucose 138 H POC Capillary Glucose 136 H 141 H Calcium 7.0 L Phosphorus 4.9 H Magnesium 2.0 Total Bilirubin 0.8 AST 28 ALT 20 Alkaline Phosphatase 134 H Total Protein 6.0 L Albumin 2.5 L Hep B Core Total Ab 10/19/24 07:40 WBC RBC Hgb Hct MCV MCH MCHC RDW Plt Count MPV Immature Gran % (Auto) Neut % (Auto) Lymph % (Auto) Cross % (Auto) Eos % (Auto) Baso % (Auto) Lymph # (Auto) Cross # (Auto) Eos # (Auto) Baso # (Auto) Abs Immat Gran (auto) Absolute Neuts (auto) Absolute Nucleated RBC Nucleated RBC % Sodium Potassium Chloride Carbon Dioxide Anion Gap BUN Creatinine Estim Creat Clear Calc Estimated GFR Glucose POC Capillary Glucose 151 H Calcium Phosphorus Magnesium Total Bilirubin AST ALT Alkaline Phosphatase Total Protein Albumin Hep B Core Total Ab Quality VTE Prophylaxis VTE prophylaxis: mechanical ordered and pharmacologic ordered
[2024-10-19 12:14] LABS: Glucose Point of Care 211 mg/dl (65-105)
[2024-10-19] MEDS: INSULIN ASPART (*BKC) 100 UNITS/ML SUB-Q (12:59)
[2024-10-19 15:41] VITALS: BP 146/74; PULSE 59; RESP 20; TEMP 36.8; O2SAT 96
[2024-10-19 16:51] LABS: Glucose Point of Care 171 mg/dl (65-105)
[2024-10-19 21:10] VITALS: BP 138/73; PULSE 98; RESP 16; TEMP 36.9; O2SAT 98
[2024-10-19] MEDS: PANTOPRAZOLE 40 MG TABLET PO (21:13)
[2024-10-19 22:21] LABS: Glucose Point of Care 176 mg/dl (65-105)
[2024-10-20] VITALS (24 sets, daily range): BP systolic 133–168; BP diastolic 71–91; PULSE 54–98; RESP 16–20; TEMP 36.6–37.1; O2SAT 97–100
[2024-10-20 06:32] LABS: Basophils Percent Auto 0.3 % (0.2-1.2); Eosinophils Absolute Auto 0.3 K/mm3 (0-0.3); Hematocrit 28.3 % (42.0-52.0); Hemoglobin 9.2 g/dL (14.0-18.0); Immature Granulocyte Absolute 0.03 K/mm3 (0.00-0.031); Immature Granulocyte Percent A 0.4 % (0-0.5); Lymphocytes Absolute Auto 1.76 K/mm3 (0.9-3.2); Lymphocytes Percent Auto 25.3 % (18.3-44.2); Mean Corpuscular HGB Conc 32.5 g/dl (32-36); Mean Corpuscular Hemoglobin 30.7 pg (26-34); Mean Corpuscular Volume 94.3 fl (80-100); Mean Platelet Volume 10.3 fl (7.4-10.4); Monocytes Absolute Auto 0.8 K/mm3 (0.1-0.6); Monocytes Percent Auto 11.1 % (2.6-8.5); Neutrophils Absolute Auto 4.1 K/mm3 (1.3-6.7); Neutrophils Percent Auto 58.9 % (45.5-73.1); Platelet Count Result 246 k/mm3 (150-375); Red Cell Distribution Width 14.4 % (11.5-14.5)
[2024-10-20 06:44] LABS: Alanine Aminotransferase 16 U/L (6-50); Albumin Level 2.4 g/dL (3.5-5.1); Alkaline Phosphatase 130 U/L (38-126); Anion Gap 10 mmol/L (4-12); Aspartate Amino Transferase 32 U/L (17-59); Bilirubin,Total 0.9 mg/dL (0.2-1.3); Blood Urea Nitrogen 53 mg/dL (9-20); Calcium 6.8 mg/dL (8.4-10.2); Carbon Dioxide 24 mmol/L (22-30); Chloride 102 mmol/L (98-107); Estimated CRCL calculation 16 ml/min; Estimated Glomerular Filt Rate 10; Glucose 153 mg/dL (65-110); Magnesium 2.1 mg/dL (1.6-2.3); Phosphorus 5.2 mg/dL (2.5-4.5); Potassium 4.3 mmol/L (3.4-5.0); Sodium 136 mmol/L (137-145)
[2024-10-20 08:11] LABS: Glucose Point of Care 148 mg/dl (65-105)
[2024-10-20] MEDS: ATORVASTATIN 40 MG TABLET 80 MG PO (08:48)
[2024-10-20] MEDS: PROPRANOLOL HCL 40 MG TABLET 80 MG PO ×3 (08:48→16:50)
[2024-10-20] MEDS: guaiFENesin 12 HR 600 MG TABCR PO ×2 (08:48→21:41)
[2024-10-20] MEDS: EZETIMIBE 10 MG TABLET PO (08:49)
[2024-10-20] MEDS: SERTRALINE HCL 50 MG TABLET BY MOUTH (08:49)
[2024-10-20] MEDS: calcitrioL 0.25 MCG CAPSULE PO (08:49)
[2024-10-20] MEDS: DOCUSATE SODIUM 100 MG CAPSULE PO ×2 (08:49→16:51)
[2024-10-20] MEDS: AMOXICILLIN/CLAVULANATE K 500-125 MG TAB 1 TABLET PO (08:49)
[2024-10-20] MEDS: ISOSORBIDE MONONITRATE 30 MG TAB.ER.24H 90 MG PO (08:49)
[2024-10-20] MEDS: HEPARIN SODIUM 5,000 UNITS/ML VIAL 5000 UNITS SUB-Q ×2 (08:49→21:41)
[2024-10-20] MEDS: busPIRone HCL 10 MG TABLET PO ×2 (08:55→16:51)
[2024-10-20] MEDS: ASPIRIN 81 MG ENTERIC TABLET PO (08:58)
[2024-10-20] MEDS: INSULIN HUMAN REGULAR (*BKC) 100 UNITS/ML 25 UNITS SUB-Q (08:58)
[2024-10-20] MEDS: FLUTICASONE PROPIONATE 0.05% NA SPR 16 GM BTL (*BKC) 1 SPRAY NASAL ×2 (08:59→21:44)
[2024-10-20 12:05] LABS: Glucose Point of Care 129 mg/dl (65-105)
--- NOTE | 2024-10-20 12:23 | P.PNIM_ITS ---
Progress Note: A&P Assessment and Plan (1) Diabetic foot ulcer: Code(s): E11.621 - Type 2 diabetes mellitus with foot ulcer; L97.509 - Non-pressure chronic ulcer of other part of unspecified foot with unspecified severity Status: Acute Assessment and Plan: patient reports injury to right great toe with worsening symptoms patient has severe diabetes and CAD with poor wound healing initial x-ray did show right great toe was also fractured * CRP elevate no WBC * Surgery consulted if debridement or amputation needed * blood cultures no growth today * wound culture ordered * NPO in case of possible procedure * IV cefepime, vancomycin and Flagyl * Will need close glucose control for any type of wound healing patient is a severely uncontrolled diabetic on high-dose insulin 10/04: * Day 1 post-op * Blood cultures NGTD * inoperative wound culture pending * continue with current ABX therapy will de-escalate with Culture and sensitivity * Plan is surgery 10/06 for amputation due to exposed fractured toe 10/05: * Postop day 2 * normal wbc no fever * blood cultures NGTD * wound culture still pending * surgery tomorrow hold morning Lovenox 10/06 10/06: * Amputation 10/06 * Aerobic culture grew Staphylococcus aureus * De-escalated ABX to doxycycline Augmentin times 14 days. 10/07: * Post-op day 2 * Minimal pain * ABX de-escalated based on sensitivities MSSA * 10/08 post op day 3 no specific complaints awaiting PT evaluation to return home with HH is what pt wants 10/09 - will continue current Augmentin and wound treatment plan 10/10 - will continue current plan of treatment 10/12/24: * Continue Augmentin as ordered. * Continue dressing changes. 10/13/24: * Stable without any complaints of pain. Normal WBC's. * Continue dressings as ordered and Augmentin. 10/14/24: * Stable. * Continue Augmentin through 10/20/24. * Pt reports no pain. * No lab evidence of acute infection. 10/15/24 * Stable. * Continue Augmentin through 10/20/24. * Pt reports no pain. * No lab evidence of acute infection. 10/16/24: * Stable. * Continue Augmentin through 10/20/24. * Pt reports no pain. * No lab evidence of acute infection. 10/17/24: * Stable. * Continue Augmentin through 10/20/24. * Pt reports no pain. * No lab evidence of acute infection. 10/18/24: * Stable. * Continue Augmentin through 10/20/24. * Pt reports no pain. * No lab evidence of acute infection. 10/19/24 * Stable. * Continue Augmentin through 10/20/24. * Pt reports no pain. * No lab evidence of acute infection. 10/20/24: * Stable. * Completed Augmentin today. * Pt reports no pain. * No lab evidence of acute infection. (2) Fracture of right great toe: Code(s): S92.401A - Displaced unspecified fracture of right great toe, initial encounter for closed fracture Status: Acute Assessment and Plan: * Nondisplaced fracture of lateral aspect of head of first proximal phalanx. * Nondisplaced stellate fracture of tuft of first distal phalanx. * Orthopedics consulted * Pain management * elevate at rest * Great toe was Amputated - wound management doing well. 10/12/24: * See #1 - s/p amputation (3) Chronic kidney disease, stage 3b: Code(s): N18.32 - Chronic kidney disease, stage 3b Status: Acute Assessment and Plan: Acute on chronic renal failure Baseline around mid 2.5 * CR 3.32 POA * Currently on vancomycin pharmacy to dose will need to deescalate cultures * Avoid nephrotoxic drugs. * Monitor antihypertensive drug therapy. * Avoid NSAIDs. * Routine CMP monitoring GFR. * Monitor electrolytes especially potassium. * Antibiotic doses depending on creatinine clearance. * Pharmacy does medications. 10/07: * Cr continues to trend up 3.37 today * de-escalated ABX therapy and had IV fluids with no improvement * Nephrology consulted for further evaluation or recommendation baseline mid 2's * Renal US pending 10/08 creat is 4 nephrology rounding see recommendations 10/09 - creat - 4.30, BUN 84, GFR 14. Nephrology aware and monitoring. --> will give 1 liter of IV fluids today 10/10 - creat - 4.57, BUN 81, GFR 13, Nephrology aware and monitoring --> Nephrology to follow. Stopped Bumex prior, worsening Renal function. creat - 5.11, BUN 84, GFR 11, K- 5.1 - Nephrology following as well. 10/12/24: * Upward trend in Cr/BUN continues with labs showing 5.29/91 today. * Nephrology is following. * Continue to hold Bumex. * Minimize/eliminate renal offending agents. * Continue to trend renal function with daily labs. 10/13/24: * Acute on chronic progression vs. JUAN CARLOS from COVID * Nephrology continues to follow. * Holding Bumex. * Continue to trend. * NM Renal scan ordered for today. 10/14/24: * NM renal scan shows normal symmetric kidney function and delayed uptake and clearance of activity from within the kidneys, consistent with decreased kidney function. * Interval increase in creatinine to 5.71 today. (3.32 on admission) * Nephrology is following. Etiology uncertain but considers COVID, DM, HTN, Vascular disease and age. * Continue to hold diuretics, but pt is appearing to have some extra fluid on board. * Continue to trend labs. * Minimize renal offending agents. * Low Potassium diet * IVF challenge given again at request of Nephrology. 10/15/24: * NM renal scan shows normal symmetric kidney function and delayed uptake and clearance of activity from within the kidneys, consistent with decreased kidney function. * Creatinine 6.04 today (3.32 on admission). * Nephrology is following. Etiology uncertain but considers COVID, DM, HTN, Vascular disease and age. * Continue to hold diuretics, but pt is appearing to have some extra fluid on board. * Continue to trend labs. * Minimize renal offending agents. * Low Potassium diet 10/16/24: * NM renal scan shows normal symmetric kidney function and delayed uptake and clearance of activity from within the kidneys, consistent with decreased kidney function. * Creatinine 6.43 today (3.32 on admission). * Nephrology is following. Etiology uncertain but considers COVID, DM, HTN, Vascular disease and age. * Continue to hold diuretics, but pt is appearing to have some extra fluid on board. * Continue to trend labs. * Minimize renal offending agents. * Low Potassium diet * NPO after midnight for hemodialysis catheter placement for patient to start hemodialysis. 10/17/24: * NM renal scan shows normal symmetric kidney function and delayed uptake and clearance of activity from within the kidneys, consistent with decreased kidney function. * Creatinine 6.84 today (3.32 on admission). * Nephrology is following. Etiology uncertain but considers COVID, DM, HTN, Vascular disease and age. * Continue to hold diuretics, but pt is appearing to have some extra fluid on board. * Continue to trend labs. * Minimize renal offending agents. * Low Potassium diet * NPO today for hemodialysis catheter placement for patient to start hemodialysis. 10/18/24: * NM renal scan shows normal symmetric kidney function and delayed uptake and clearance of activity from within the kidneys, consistent with decreased kidney function. * Creatinine 5.73 today (3.32 on admission). * Nephrology is following. Etiology uncertain but considers COVID, DM, HTN, Vascular disease and age. * Continue to hold diuretics, but pt is appearing to have some extra fluid on board. * Continue to trend labs. * Minimize renal offending agents. * Low Potassium diet * Hemodialysis today pulled off 519 ml. * follows with Dr. Caprice Gusman for management of his chronic kidney disease 10/19/24: * NM renal scan shows normal symmetric kidney function and delayed uptake and clearance of activity from within the kidneys, consistent with decreased kidney function. * Creatinine 4.71 today (3.32 on admission). * Nephrology is following. Etiology uncertain but considers COVID, DM, HTN, Vascular disease and age. * Continue to hold diuretics, but pt is appearing to have some extra fluid on board. * Continue to trend labs. * Minimize renal offending agents. * Renal dialysis diet * follows with Dr. Caprice Gusman for management of his chronic kidney disease 10/20/24: * NM renal scan shows normal symmetric kidney function and delayed uptake and clearance of activity from within the kidneys, consistent with decreased kidney function. * Creatinine 5.92 today (3.32 on admission). Hemodialysis today. * Nephrology is following. Etiology uncertain but considers COVID, DM, HTN, Vascular disease and age. * Continue to hold diuretics, but pt is appearing to have some extra fluid on board. * Continue to trend labs. * Minimize renal offending agents. * Renal dialysis diet * follows with Dr. Caprice Gusman for management of his chronic kidney disease * NPO after midnight for an ultrasound biopsy of kidney. (4) Type 2 diabetes mellitus with diabetic polyneuropathy: Code(s): E11.42 - Type 2 diabetes mellitus with diabetic polyneuropathy Status: Acute Assessment and Plan: * Diabetic diet * Holding semaglutide * Hemoglobin A1c pending * Accuchecks ACHS * SSI moderate dosing added * Patient is hard to control diabetic on several diabetic medication, and high- dose insulin started conversion to U 100 while hospitalized and adjust as need currently 65u/25u/10u * Continue Jardiance and Zetia 10/12/24: * Continue current glycemic regimen. * Monitor and adjust as necessary. 10/13/24: * Fasting glucose this AM is 149. * No further adjustments to insulin dosing. * Continue current regimen for management. 10/14/24: * Current regimen is managing well. * A1C is 7.9. * Continue Diabetic/Low potassium diet. 10/15/24: * Current regimen is managing well. * Continue Diabetic/Low potassium diet. 10/16/24: * Adjusted morning regular insulin to 25 units. * Continue Diabetic/Low potassium diet. 10/17/24: * NPO this morning for hemodialysis catheter placement. * Monitor blood sugars. * Hypoglycemic protocol. * Follow diabetic regimen once able to eat. 10/18/24: * Renal dialysis diet. * Jardiance on hold due to low GFR. 10/19/24: * Monitor blood sugars. * Hypoglycemic protocol. * Renal dialysis diet. * Jardiance on hold due to low GFR. 10/20/24: * Monitor blood sugars. * Hypoglycemic protocol. * Renal dialysis diet. * Jardiance on hold due to low GFR. (5) Diastolic dysfunction: Onset Date: 03/2022 Code(s): I51.89 - Other ill-defined heart diseases Status: Chronic Assessment and Plan: * patient does not appear to be in exacerbation * stopped Bumex 10/12/24: * Continues to appear euvolemic. 10/13/24: * Pt with mild edema to the BUE and the BLE, no pitting. Will need continued close monitoring. Continue to hold Bumex. 10/15/24 * Creatinine 6.04, Bumex on hold. 10/16/24: * Creatinine 6.43, Bumex on hold. 10/17/24: * Creatinine 6.84, Bumex on hold. 10/18/24: * Creatinine 5.73, Bumex on hold. 10/19/24: * Creatinine 4.71, Bumex on hold. 10/20/24: * Creatinine 5.92, Bumex on hold. (6) Presence of aortocoronary bypass graft: Onset Date: 10/2017 Code(s): Z95.1 - Presence of aortocoronary bypass graft Status: Acute Assessment and Plan: * Continue Inderal, Aspirin, Lipitor, an Imdur, Atorvastatin 10/13/24: * Continue current meds. (7) COVID: Code(s): U07.1 - COVID-19 Status: Acute Assessment and Plan: 10/12/24: * Supportive care. * No steroids or other antivirals ordered in setting of no supplemental oxygen required. * PRN nebs ordered. 10/13/24: * Continue supportive care. (8) Renal mass, right: Code(s): N28.89 - Other specified disorders of kidney and ureter Status: Acute Assessment and Plan: 10/12/24: * A 3.4 cm mixed solid and cystic lesion at the upper pole the right kidney with 2 cm solid nodular component which is concerning for renal cell carcinoma. Recommend urologic consultation and further evaluation with pre and postcontrast MRI or CT. * Unable to do further imaging at this time due to renal function. * Urology and Nephrology following. 10/13/24: * Discussed with Dr. Jacobsen whether or not it is appropriate to inquire about doing a biopsy of the renal mass and whether or not that is contributing to his renal function, but he does not believe that it is contributing. He further notes that if there is concern for possible neoplastic disease, typically the mass is just resected and not biopsied. (9) Transaminitis: Code(s): R74.01 - Elevation of levels of liver transaminase levels Status: Acute Assessment and Plan: 10/14/24: * New during this admission. * Most likely etiology is having COVID. * Continue to trend. * Pt asympotmatic. If any development of pain, N/V then would consider RUQ US/CT abd pelvis. 10/17/24: * Alkaline phosphatase: 157. 10/18/24: * Alkaline phosphatase: 147. 10/19/24: * Alkaline phosphatase: 134. 10/20/24: * Alkaline phosphatase: 130. (10) Hypocalcemia: Code(s): E83.51 - Hypocalcemia Status: Acute Assessment and Plan: 10/17/24: * Calcium 6.6. * Calcium gluconate 2 gram IVPB given. * Monitor level. 10/18/24: * Calcium 7.2. * Hemodialysis today. 10/19/24: * Calcium 7.0. * Monitor level. 10/20/24: * Calcium 6.8. * Hemodialysis today. * Monitor level. Plan Subjective Date/time seen: 10/20/24 12:23 Interval history: Patient hoping to go home soon and wanting to know what plan is for dialysis. Patient denies chest pain, palpitations, headache, dizziness, nausea, or vomiting. Review of Systems Review of Systems: All systems reviewed & are unremarkable except as noted in HPI and below Exam Const: General: comfortable and no acute distress Resp: Effort & Inspection: normal respiratory effort Auscultation: clear to auscultation bilaterally Cardio: Rate: regular rate Rhythm: regular rhythm GI: GI Palp: Yes Soft to palpation Auscultation: normal bowel sounds Skin: Wounds: wounds noted (Right great toe amputated with small amount of dry blood on gauze. Healing.) Neuro: Speech: normal speech Extrem: General: pedal edema bilaterally 1+ Psych: Mental Status: mental status grossly normal Affect: normal affect Objective Data Vital Signs Vital Signs: Vital Signs - 24 hr 10/19/24 15:41 10/19/24 20:00 10/19/24 21:10 Temperature 98.2 F 98.5 F Pulse Rate 59 L 98 Respiratory Rate 20 16 Blood Pressure 146/74 H 138/73 Pulse Oximetry 96 98 Oxygen Delivery Room Air 10/20/24 04:00 10/20/24 08:00 10/20/24 08:00 Temperature 98.6 F 98.6 F Pulse Rate 95 61 Respiratory Rate 18 20 Blood Pressure 133/71 168/78 H Pulse Oximetry 99 97 Oxygen Delivery Room Air 10/20/24 08:48 10/20/24 12:00 Temperature 98.7 F Pulse Rate 88 59 L Respiratory Rate 20 Blood Pressure 165/91 H Pulse Oximetry 98 Oxygen Delivery Intake/Output Intake/Output: Intake & Output 10/17/24 10/18/24 10/19/24 10/20/24 23:59 23:59 23:59 23:59 Intake Total 990 1170 1760 558 Output Total 600 769 100 Balance 705 357 0415 558 Meds/Results Medications: Active Medications Generic Name Dose Route Start Last Admin Trade Name Freq PRN Reason Stop Dose Admin Acetaminophen 650 mg 10/02/24 16:55 10/12/24 00:01 Acetaminophen 325 Mg Tablet PO 650 mg Q4H PRN Administration Mild Pain (1-3) or Fever Albuterol 2.5 mg 10/12/24 13:19 Albuterol Sulfate Neb 2.5 Mg/3 Ml Inh INHALATION Q4HRT PRN Shortness Of Breath Amoxicillin/Clavulanate Potassium 1 tablet 10/17/24 12:13 Amoxicillin/Clavulanate K 500-125 Mg Tab PO 10/20/24 23:59 DAILY PRN DIALYSIS Aspirin 81 mg 10/03/24 09:00 10/20/24 08:58 Aspirin 81 Mg Enteric Tablet PO 81 mg QAM TAMIKA Administration Atorvastatin Calcium 80 mg 10/03/24 09:00 10/20/24 08:48 Atorvastatin 40 Mg Tablet PO 80 mg DAILY TAMIKA Administration Bumetanide 0.5 mg 10/03/24 09:00 10/08/24 08:32 Bumetanide 0.5 Mg Tablet PO 0.5 mg DAILY TAMIKA Administration Buspirone HCl 10 mg 10/03/24 09:00 10/20/24 08:55 Buspirone Hcl 10 Mg Tablet PO 10 mg BID TAMIKA Administration Calcitriol 0.25 mcg 10/03/24 09:00 10/20/24 08:49 Calcitriol 0.25 Mcg Capsule PO 0.25 mcg [id number] TAMIKA Administration Dextrose 12.5 gm 10/02/24 17:35 10/17/24 15:55 Dextrose 50% 25 Gm/50 Ml Syringe IV PUSH 12.5 gm PRN PRN Administration Hypoglycemia Protocol Docusate Sodium 100 mg 10/03/24 09:00 10/20/24 08:49 Docusate Sodium 100 Mg Capsule PO 100 mg BID TAMIKA Administration Ezetimibe 10 mg 10/03/24 09:00 10/20/24 08:49 Ezetimibe 10 Mg Tablet PO 10 mg DAILY TAMIKA Administration Empagliflozin 25 mg 10/03/24 09:00 10/17/24 15:30 Empagliflozin 25 Mg Tablet BY MOUTH Not Given QAM TAMIKA Epoetin Marco-epbx 10,000 units 10/20/24 19:06 Epoetin Marco-Epbx 10,000 Units/Ml Vial IV PUSH 10/20/24 19:07 ONCE ONE Fluticasone Propionate 1 spray 10/11/24 21:00 10/20/24 08:59 Fluticasone Propionate 0.05% Na Spr 16 Gm Btl (*Bkc) NASAL 1 spray Q12HR TAMIKA Administration Glucagon 1 mg 10/02/24 17:35 Glucagon For Inj 1 Mg Vial IM PRN PRN Hypoglycemia Protocol Glucose 15 gm 10/02/24 17:35 10/13/24 17:38 Glucose Oral Gel 15 Gm Of Glucse In 37.5 Gm Tube PO 15 gm PRN PRN Administration Hypoglycemia Protocol Guaifenesin 600 mg 10/15/24 12:30 10/20/24 08:48 Guaifenesin 12 Hr 600 Mg Tabcr PO 10/22/24 12:29 600 mg Q12HR TAMIKA Administration Heparin Sodium (Porcine) 5,000 units 10/14/24 21:00 10/20/24 08:49 Heparin Sodium 5,000 Units/Ml Vial SUB-Q 5,000 units Q12HR TAMIKA Administration Dextrose 1,000 mls @ 100 mls/hr 10/02/24 17:35 Dextrose 5% 1,000 Ml IVPB PRN PRN Hypoglycemia Protocol Albumin Human 50 mls @ 999 mls/hr 10/17/24 16:39 Albutein IVPB 11/16/24 16:38 Q10M PRN HYPOTENSION Insulin Aspart 3 - 6 units 10/03/24 08:00 10/20/24 12:10 Insulin Aspart (*Bkc) 100 Units/Ml SUB-Q Not Given TIDWM TAMIKA Protocol Insulin Aspart 1 - 3 units 10/02/24 21:00 10/19/24 21:14 Insulin Aspart (*Bkc) 100 Units/Ml SUB-Q Not Given HS TAMIKA Protocol Insulin Human Regular 25 units 10/03/24 13:00 10/19/24 12:00 Insulin Human Regular (*Bkc) 100 Units/Ml SUB-Q Not Given DAILY@1200 [facility] Insulin Human Regular 25 units 10/16/24 09:35 10/20/24 08:58 Insulin Human Regular (*Bkc) 100 Units/Ml SUB-Q 25 units DAILY@0800 [facility] Administration Isosorbide Mononitrate 90 mg 10/03/24 09:00 10/20/24 08:49 Isosorbide Mononitrate 30 Mg Tab.Er.24h PO 90 mg DAILY TAMIKA Administration Loperamide HCl 2 mg 10/13/24 13:26 Loperamide Hcl 2 Mg Capsule PO PRN PRN Diarrhea Morphine Sulfate 2 mg 10/17/24 16:31 Morphine Sulfate (*Crx) 2 Mg/Ml Inj IV PUSH Q2H PRN Breakthrough Pain Rated 7-10 Ondansetron HCl 4 mg 10/02/24 17:35 10/18/24 18:40 Ondansetron Inj 4 Mg/2 Ml Vial IV PUSH 4 mg Q6H PRN Administration Nausea And Vomiting Ondansetron HCl 4 mg 10/18/24 18:21 Ondansetron Inj 4 Mg/2 Ml Vial IV PUSH Q6H PRN Nausea And Vomiting Oxycodone/Acetaminophen 1 tablet 10/17/24 16:31 10/18/24 01:50 Oxycodone/Acetaminophen (*Crx) 5-325 Mg Tablet PO 1 tablet Q4H PRN Administration Pain Rated 4-6 Pantoprazole Sodium 40 mg 10/03/24 21:00 10/19/24 21:13 Pantoprazole 40 Mg Tablet PO 40 mg QHS [facility] Administration Polyethylene Glycol 17 gm 10/05/24 14:48 Polyethylene Glycol 3350 17 Gm Powd.Pack PO QAM PRN Constipation Propranolol HCl 80 mg 10/03/24 09:00 10/20/24 08:48 Propranolol Hcl 40 Mg Tablet PO 80 mg TID [facility] Administration Sertraline HCl 50 mg 10/02/24 23:10 10/20/24 08:49 Sertraline Hcl 50 Mg Tablet BY MOUTH 50 mg DAILY [facility] Administration Sodium Chloride 1 spray 10/11/24 16:22 10/12/24 00:02 Saline 0.65% Fabiano Soln 44 Ml Btl NASAL 1 spray Q6HR PRN Administration Congestion Radiology Results: ITS Impressions Foot X-Ray 10/02/24 14:32 IMPRESSION: 1. Nondisplaced fracture of lateral aspect of head of first proximal phalanx. 2. Nondisplaced stellate fracture of tuft of first distal phalanx. 3. Mild polyarticular osteoarthritis. Renal Ultrasound 10/07/24 11:52 IMPRESSION: 1. 3.4 cm mixed solid and cystic lesion at the upper pole the right kidney with 2 cm solid nodular component which is concerning for renal cell carcinoma. Recommend urologic consultation and further evaluation with pre and postcontrast MRI or CT. 2. No hydronephrosis in either kidney. 3. Trabeculated bladder wall which can be seen with neurogenic bladder or chronic outlet obstruction such as in the setting of prostatomegaly. Renal Scan Nuclear Medicine 10/13/24 14:38 IMPRESSION: 1. Symmetric kidney function. 2. Delayed uptake and clearance of activity from the kidneys, consistent with decreased kidney function. Chest X-Ray 10/17/24 16:14 IMPRESSION: Left internal jugular central venous tunneled hemodialysis catheter in position and ready for immediate use Labs Labs: Laboratory Results - last 24 hr 10/19/24 10/19/24 10/20/24 16:42 21:13 06:24 WBC 7.0 RBC 3.00 L Hgb 9.2 L Hct 28.3 L MCV 94.3 MCH 30.7 MCHC 32.5 RDW 14.4 Plt Count 246 MPV 10.3 Immature Gran % (Auto) 0.4 Neut % (Auto) 58.9 Lymph % (Auto) 25.3 [place] % (Auto) 11.1 H Eos % (Auto) 4.0 Baso % (Auto) 0.3 Lymph # (Auto) 1.76 [place] # (Auto) 0.8 H Eos # (Auto) 0.3 Baso # (Auto) 0.0 Abs Immat Gran (auto) 0.03 Absolute Neuts (auto) 4.1 Absolute Nucleated RBC 0.000 Nucleated RBC % 0.0 Sodium 136 L Potassium 4.3 Chloride 102 Carbon Dioxide 24 Anion Gap 10 BUN 53 H Creatinine 5.92 H Estim Creat Clear Calc 16 Estimated GFR 10 L Glucose 153 H POC Capillary Glucose 171 H 176 H Calcium 6.8 L Phosphorus 5.2 H Magnesium 2.1 Total Bilirubin 0.9 AST 32 ALT 16 Alkaline Phosphatase 130 H Total Protein 6.0 L Albumin 2.4 L 10/20/24 10/20/24 08:03 11:56 WBC RBC Hgb Hct MCV MCH MCHC RDW Plt Count MPV Immature Gran % (Auto) Neut % (Auto) Lymph % (Auto) [place] % (Auto) Eos % (Auto) Baso % (Auto) Lymph # (Auto) [place] # (Auto) Eos # (Auto) Baso # (Auto) Abs Immat Gran (auto) Absolute Neuts (auto) Absolute Nucleated RBC Nucleated RBC % Sodium Potassium Chloride Carbon Dioxide Anion Gap BUN Creatinine Estim Creat Clear Calc Estimated GFR Glucose POC Capillary Glucose 148 H 129 H Calcium Phosphorus Magnesium Total Bilirubin AST ALT Alkaline Phosphatase Total Protein Albumin Quality VTE Prophylaxis VTE prophylaxis: mechanical ordered and pharmacologic ordered
--- NOTE | 2024-10-20 12:23 | PM.IMPN ---
Progress Note: A&P Assessment and Plan (1) Diabetic foot ulcer: Code(s): E11.621 - Type 2 diabetes mellitus with foot ulcer; L97.509 - Non-pressure chronic ulcer of other part of unspecified foot with unspecified severity Status: Acute Assessment and Plan: patient reports injury to right great toe with worsening symptoms patient has severe diabetes and CAD with poor wound healing initial x-ray did show right great toe was also fractured CRP elevate no WBC Surgery consulted if debridement or amputation needed blood cultures no growth today wound culture ordered NPO in case of possible procedure IV cefepime, vancomycin and Flagyl Will need close glucose control for any type of wound healing patient is a severely uncontrolled diabetic on high-dose insulin 10/04: Day 1 post-op Blood cultures NGTD inoperative wound culture pending continue with current ABX therapy will de-escalate with Culture and sensitivity Plan is surgery 10/06 for amputation due to exposed fractured toe 10/05: Postop day 2 normal wbc no fever blood cultures NGTD wound culture still pending surgery tomorrow hold morning Lovenox 10/06 10/06: Amputation 10/06 Aerobic culture grew Staphylococcus aureus De-escalated ABX to doxycycline Augmentin times 14 days. 10/07: Post-op day 2 Minimal pain ABX de-escalated based on sensitivities MSSA 10/08 post op day 3 no specific complaints awaiting PT evaluation to return home with HH is what pt wants 10/09 - will continue current Augmentin and wound treatment plan 10/10 - will continue current plan of treatment 10/12/24: Continue Augmentin as ordered. Continue dressing changes. 10/13/24: Stable without any complaints of pain. Normal WBC's. Continue dressings as ordered and Augmentin. 10/14/24: Stable. Continue Augmentin through 10/20/24. Pt reports no pain. No lab evidence of acute infection. 10/15/24 Stable. Continue Augmentin through 10/20/24. Pt reports no pain. No lab evidence of acute infection. 10/16/24: Stable. Continue Augmentin through 10/20/24. Pt reports no pain. No lab evidence of acute infection. 10/17/24: Stable. Continue Augmentin through 10/20/24. Pt reports no pain. No lab evidence of acute infection. 10/18/24: Stable. Continue Augmentin through 10/20/24. Pt reports no pain. No lab evidence of acute infection. 10/19/24 Stable. Continue Augmentin through 10/20/24. Pt reports no pain. No lab evidence of acute infection. 10/20/24: Stable. Completed Augmentin today. Pt reports no pain. No lab evidence of acute infection. (2) Fracture of right great toe: Code(s): S92.401A - Displaced unspecified fracture of right great toe, initial encounter for closed fracture Status: Acute Assessment and Plan: Nondisplaced fracture of lateral aspect of head of first proximal phalanx. Nondisplaced stellate fracture of tuft of first distal phalanx. Orthopedics consulted Pain management elevate at rest Great toe was Amputated - wound management doing well. 10/12/24: See #1 - s/p amputation (3) Chronic kidney disease, stage 3b: Code(s): N18.32 - Chronic kidney disease, stage 3b Status: Acute Assessment and Plan: Acute on chronic renal failure Baseline around mid 2.5 CR 3.32 POA Currently on vancomycin pharmacy to dose will need to deescalate cultures Avoid nephrotoxic drugs. Monitor antihypertensive drug therapy. Avoid NSAIDs. Routine CMP monitoring GFR. Monitor electrolytes especially potassium. Antibiotic doses depending on creatinine clearance. Pharmacy does medications. 10/07: Cr continues to trend up 3.37 today de-escalated ABX therapy and had IV fluids with no improvement Nephrology consulted for further evaluation or recommendation baseline mid 2's Renal US pending 10/08 creat is 4 nephrology rounding see recommendations 10/09 - creat - 4.30, BUN 84, GFR 14. Nephrology aware and monitoring. --> will give 1 liter of IV fluids today 10/10 - creat - 4.57, BUN 81, GFR 13, Nephrology aware and monitoring --> Nephrology to follow. Stopped Bumex prior, worsening Renal function. creat - 5.11, BUN 84, GFR 11, K- 5.1 - Nephrology following as well. 10/12/24: Upward trend in Cr/BUN continues with labs showing 5.29/91 today. Nephrology is following. Continue to hold Bumex. Minimize/eliminate renal offending agents. Continue to trend renal function with daily labs. 10/13/24: Acute on chronic progression vs. JUAN CARLOS from COVID Nephrology continues to follow. Holding Bumex. Continue to trend. NM Renal scan ordered for today. 10/14/24: NM renal scan shows normal symmetric kidney function and delayed uptake and clearance of activity from within the kidneys, consistent with decreased kidney function. Interval increase in creatinine to 5.71 today. (3.32 on admission) Nephrology is following. Etiology uncertain but considers COVID, DM, HTN, Vascular disease and age. Continue to hold diuretics, but pt is appearing to have some extra fluid on board. Continue to trend labs. Minimize renal offending agents. Low Potassium diet IVF challenge given again at request of Nephrology. 10/15/24: NM renal scan shows normal symmetric kidney function and delayed uptake and clearance of activity from within the kidneys, consistent with decreased kidney function. Creatinine 6.04 today (3.32 on admission). Nephrology is following. Etiology uncertain but considers COVID, DM, HTN, Vascular disease and age. Continue to hold diuretics, but pt is appearing to have some extra fluid on board. Continue to trend labs. Minimize renal offending agents. Low Potassium diet 10/16/24: NM renal scan shows normal symmetric kidney function and delayed uptake and clearance of activity from within the kidneys, consistent with decreased kidney function. Creatinine 6.43 today (3.32 on admission). Nephrology is following. Etiology uncertain but considers COVID, DM, HTN, Vascular disease and age. Continue to hold diuretics, but pt is appearing to have some extra fluid on board. Continue to trend labs. Minimize renal offending agents. Low Potassium diet NPO after midnight for hemodialysis catheter placement for patient to start hemodialysis. 10/17/24: NM renal scan shows normal symmetric kidney function and delayed uptake and clearance of activity from within the kidneys, consistent with decreased kidney function. Creatinine 6.84 today (3.32 on admission). Nephrology is following. Etiology uncertain but considers COVID, DM, HTN, Vascular disease and age. Continue to hold diuretics, but pt is appearing to have some extra fluid on board. Continue to trend labs. Minimize renal offending agents. Low Potassium diet NPO today for hemodialysis catheter placement for patient to start hemodialysis. 10/18/24: NM renal scan shows normal symmetric kidney function and delayed uptake and clearance of activity from within the kidneys, consistent with decreased kidney function. Creatinine 5.73 today (3.32 on admission). Nephrology is following. Etiology uncertain but considers COVID, DM, HTN, Vascular disease and age. Continue to hold diuretics, but pt is appearing to have some extra fluid on board. Continue to trend labs. Minimize renal offending agents. Low Potassium diet Hemodialysis today pulled off [address] Caprice Gusman for management of his chronic kidney disease 10/19/24: NM renal scan shows normal symmetric kidney function and delayed uptake and clearance of activity from within the kidneys, consistent with decreased kidney function. Creatinine 4.71 today (3.32 on admission). Nephrology is following. Etiology uncertain but considers COVID, DM, HTN, Vascular disease and age. Continue to hold diuretics, but pt is appearing to have some extra fluid on board. Continue to trend labs. Minimize renal offending agents. Renal dialysis diet follows with Dr. Caprice Gusman for management of his chronic kidney disease 10/20/24: NM renal scan shows normal symmetric kidney function and delayed uptake and clearance of activity from within the kidneys, consistent with decreased kidney function. Creatinine 5.92 today (3.32 on admission). Hemodialysis today. Nephrology is following. Etiology uncertain but considers COVID, DM, HTN, Vascular disease and age. Continue to hold diuretics, but pt is appearing to have some extra fluid on board. Continue to trend labs. Minimize renal offending agents. Renal dialysis diet follows with Dr. Caprice Gusman for management of his chronic kidney disease NPO after midnight for an ultrasound biopsy of kidney. (4) Type 2 diabetes mellitus with diabetic polyneuropathy: Code(s): E11.42 - Type 2 diabetes mellitus with diabetic polyneuropathy Status: Acute Assessment and Plan: Diabetic diet Holding semaglutide Hemoglobin A1c pending Accuchecks ACHS SSI moderate dosing added Patient is hard to control diabetic on several diabetic medication, and high-dose insulin started conversion to U 100 while hospitalized and adjust as need currently 65u/25u/10u Continue Jardiance and Zetia 10/12/24: Continue current glycemic regimen. Monitor and adjust as necessary. 10/13/24: Fasting glucose this AM is 149. No further adjustments to insulin dosing. Continue current regimen for management. 10/14/24: Current regimen is managing well. A1C is 7.9. Continue Diabetic/Low potassium diet. 10/15/24: Current regimen is managing well. Continue Diabetic/Low potassium diet. 10/16/24: Adjusted morning regular insulin to 25 units. Continue Diabetic/Low potassium diet. 10/17/24: NPO this morning for hemodialysis catheter placement. Monitor blood sugars. Hypoglycemic protocol. Follow diabetic regimen once able to eat. 10/18/24: Renal dialysis diet. Jardiance on hold due to low GFR. 10/19/24: Monitor blood sugars. Hypoglycemic protocol. Renal dialysis diet. Jardiance on hold due to low GFR. 10/20/24: Monitor blood sugars. Hypoglycemic protocol. Renal dialysis diet. Jardiance on hold due to low GFR. (5) Diastolic dysfunction: Onset Date: 03/2022 Code(s): I51.89 - Other ill-defined heart diseases Status: Chronic Assessment and Plan: patient does not appear to be in exacerbation stopped Bumex 10/12/24: Continues to appear euvolemic. 10/13/24: Pt with mild edema to the BUE and the BLE, no pitting. Will need continued close monitoring. Continue to hold Bumex. 10/15/24 Creatinine 6.04, Bumex on hold. 10/16/24: Creatinine 6.43, Bumex on hold. 10/17/24: Creatinine 6.84, Bumex on hold. 10/18/24: Creatinine 5.73, Bumex on hold. 10/19/24: Creatinine 4.71, Bumex on hold. 10/20/24: Creatinine 5.92, Bumex on hold. (6) Presence of aortocoronary bypass graft: Onset Date: 10/2017 Code(s): Z95.1 - Presence of aortocoronary bypass graft Status: Acute Assessment and Plan: Continue Inderal, Aspirin, Lipitor, an Imdur, Atorvastatin 10/13/24: Continue current meds. (7) COVID: Code(s): U07.1 - COVID-19 Status: Acute Assessment and Plan: 10/12/24: Supportive care. No steroids or other antivirals ordered in setting of no supplemental oxygen required. PRN nebs ordered. 10/13/24: Continue supportive care. (8) Renal mass, right: Code(s): N28.89 - Other specified disorders of kidney and ureter Status: Acute Assessment and Plan: 10/12/24: A 3.4 cm mixed solid and cystic lesion at the upper pole the right kidney with 2 cm solid nodular component which is concerning for renal cell carcinoma. Recommend urologic consultation and further evaluation with pre and postcontrast MRI or CT. Unable to do further imaging at this time due to renal function. Urology and Nephrology following. 10/13/24: Discussed with Dr. Jacobsen whether or not it is appropriate to inquire about doing a biopsy of the renal mass and whether or not that is contributing to his renal function, but he does not believe that it is contributing. He further notes that if there is concern for possible neoplastic disease, typically the mass is just resected and not biopsied. (9) Transaminitis: Code(s): R74.01 - Elevation of levels of liver transaminase levels Status: Acute Assessment and Plan: 10/14/24: New during this admission. Most likely etiology is having COVID. Continue to trend. Pt asympotmatic. If any development of pain, N/V then would consider RUQ US/CT abd pelvis. 10/17/24: Alkaline phosphatase: 157. 10/18/24: Alkaline phosphatase: 147. 3/10/14: Alkaline phosphatase: 134. 3: Alkaline phosphatase: 130. (10) Hypocalcemia: Code(s): E83.51 - Hypocalcemia Status: Acute Assessment and Plan: 10/17/24: Calcium 6.6. Calcium gluconate 2 gram IVPB given. Monitor level. 10/18/24: Calcium 7.2. Hemodialysis today. 10/19/24: Calcium 7.0. Monitor level. 10/20/24: Calcium 6.8. Hemodialysis today. Monitor level. Plan Subjective Date/time seen: 10/20/24 12:23 Interval history: Patient hoping to go home soon and wanting to know what plan is for dialysis. Patient denies chest pain, palpitations, headache, dizziness, nausea, or vomiting. Review of Systems Review of Systems: All systems reviewed & are unremarkable except as noted in HPI and below Exam Const: General: comfortable and no acute distress Resp: Effort & Inspection: normal respiratory effort Auscultation: clear to auscultation bilaterally Cardio: Rate: regular rate Rhythm: regular rhythm GI: GI Palp: Yes Soft to palpation Auscultation: normal bowel sounds Skin: Wounds: wounds noted (Right great toe amputated with small amount of dry blood on gauze. Healing.) Neuro: Speech: normal speech Extrem: General: pedal edema bilaterally 1+ Psych: Mental Status: mental status grossly normal Affect: normal affect Objective Data Vital Signs Vital Signs: Vital Signs - 24 hr 10/19/24 15:41 10/19/24 20:00 10/19/24 21:10 Temperature 98.2 F 98.5 F Pulse Rate 59 L 98 Respiratory Rate 20 16 Blood Pressure 146/74 H 138/73 Pulse Oximetry 96 98 Oxygen Delivery Room Air 10/20/24 04:00 10/20/24 08:00 10/20/24 08:00 Temperature 98.6 F 98.6 F Pulse Rate 95 61 Respiratory Rate 18 20 Blood Pressure 133/71 168/78 H Pulse Oximetry 99 97 Oxygen Delivery Room Air 10/20/24 08:48 10/20/24 12:00 Temperature 98.7 F Pulse Rate 88 59 L Respiratory Rate 20 Blood Pressure 165/91 H Pulse Oximetry 98 Oxygen Delivery Intake/Output Intake/Output: Intake & Output 10/17/24 10/18/24 10/19/24 10/20/24 23:59 23:59 23:59 23:59 Intake Total 990 1170 1760 558 Output Total 600 769 100 Balance 620 872 9960 558 Meds/Results Medications: Active Medications Generic Name Dose Route Start Last Admin Trade Name Freq PRN Reason Stop Dose Admin Acetaminophen 650 mg 10/02/24 16:55 10/12/24 00:01 Acetaminophen 325 Mg Tablet PO 650 mg Q4H PRN Administration Mild Pain (1-3) or Fever Albuterol 2.5 mg 10/12/24 13:19 Albuterol Sulfate Neb 2.5 Mg/3 Ml Inh INHALATION Q4HRT PRN Shortness Of Breath Amoxicillin/Clavulanate Potassium 1 tablet 10/17/24 12:13 Amoxicillin/Clavulanate K 500-125 Mg Tab PO 10/20/24 23:59 DAILY PRN DIALYSIS Aspirin 81 mg 10/03/24 09:00 10/20/24 08:58 Aspirin 81 Mg Enteric Tablet PO 81 mg QAM TAMIKA Administration Atorvastatin Calcium 80 mg 10/03/24 09:00 10/20/24 08:48 Atorvastatin 40 Mg Tablet PO 80 mg DAILY TAMIKA Administration Bumetanide 0.5 mg 10/03/24 09:00 10/08/24 08:32 Bumetanide 0.5 Mg Tablet PO 0.5 mg DAILY TAMIKA Administration Buspirone HCl 10 mg 10/03/24 09:00 10/20/24 08:55 Buspirone Hcl 10 Mg Tablet PO 10 mg BID TAMIKA Administration Calcitriol 0.25 mcg 10/03/24 09:00 10/20/24 08:49 Calcitriol 0.25 Mcg Capsule PO 0.25 mcg [id number]@0900 TAMIKA Administration Dextrose 12.5 gm 10/02/24 17:35 10/17/24 15:55 Dextrose 50% 25 Gm/50 Ml Syringe IV PUSH 12.5 gm PRN PRN Administration Hypoglycemia Protocol Docusate Sodium 100 mg 10/03/24 09:00 10/20/24 08:49 Docusate Sodium 100 Mg Capsule PO 100 mg BID TAMIKA Administration Ezetimibe 10 mg 10/03/24 09:00 10/20/24 08:49 Ezetimibe 10 Mg Tablet PO 10 mg DAILY TAMIKA Administration Empagliflozin 25 mg 10/03/24 09:00 10/17/24 15:30 Empagliflozin 25 Mg Tablet BY MOUTH Not Given QAM [facility] Epoetin Marco-epbx 10,000 units 10/20/24 19:06 Epoetin Marco-Epbx 10,000 Units/Ml Vial IV PUSH 10/20/24 19:07 ONCE ONE Fluticasone Propionate 1 spray 10/11/24 21:00 10/20/24 08:59 Fluticasone Propionate 0.05% Na Spr 16 Gm Btl (*Bkc) NASAL 1 spray Q12HR TAMIKA Administration Glucagon 1 mg 10/02/24 17:35 Glucagon For Inj 1 Mg Vial IM PRN PRN Hypoglycemia Protocol Glucose 15 gm 10/02/24 17:35 10/13/24 17:38 Glucose Oral Gel 15 Gm Of Glucse In 37.5 Gm Tube PO 15 gm PRN PRN Administration Hypoglycemia Protocol Guaifenesin 600 mg 10/15/24 12:30 10/20/24 08:48 Guaifenesin 12 Hr 600 Mg Tabcr PO 10/22/24 12:29 600 mg Q12HR TAMIKA Administration Heparin Sodium (Porcine) 5,000 units 10/14/24 21:00 10/20/24 08:49 Heparin Sodium 5,000 Units/Ml Vial SUB-Q 5,000 units Q12HR TAMIKA Administration Dextrose 1,000 mls @ 100 mls/hr 10/02/24 17:35 Dextrose 5% 1,000 Ml IVPB PRN PRN Hypoglycemia Protocol Albumin Human 50 mls @ 999 mls/hr 10/17/24 16:39 Albutein IVPB 11/16/24 16:38 Q10M PRN HYPOTENSION Insulin Aspart 3 - 6 units 10/03/24 08:00 10/20/24 12:10 Insulin Aspart (*Bkc) 100 Units/Ml SUB-Q Not Given TIDWM [facility] Protocol Insulin Aspart 1 - 3 units 10/02/24 21:00 10/19/24 21:14 Insulin Aspart (*Bkc) 100 Units/Ml SUB-Q Not Given HS [facility] Protocol Insulin Human Regular 25 units 10/03/24 13:00 10/19/24 12:00 Insulin Human Regular (*Bkc) 100 Units/Ml SUB-Q Not Given DAILY@1200 [facility] Insulin Human Regular 25 units 10/16/24 09:35 10/20/24 08:58 Insulin Human Regular (*Bkc) 100 Units/Ml SUB-Q 25 units DAILY@0800 [facility] Administration Isosorbide Mononitrate 90 mg 10/03/24 09:00 10/20/24 08:49 Isosorbide Mononitrate 30 Mg Tab.Er.24h PO 90 mg DAILY [facility] Administration Loperamide HCl 2 mg 10/13/24 13:26 Loperamide Hcl 2 Mg Capsule PO PRN PRN Diarrhea Morphine Sulfate 2 mg 10/17/24 16:31 Morphine Sulfate (*Crx) 2 Mg/Ml Inj IV PUSH Q2H PRN Breakthrough Pain Rated 7-10 Ondansetron HCl 4 mg 10/02/24 17:35 10/18/24 18:40 Ondansetron Inj 4 Mg/2 Ml Vial IV PUSH 4 mg Q6H PRN Administration Nausea And Vomiting Ondansetron HCl 4 mg 10/18/24 18:21 Ondansetron Inj 4 Mg/2 Ml Vial IV PUSH Q6H PRN Nausea And Vomiting Oxycodone/Acetaminophen 1 tablet 10/17/24 16:31 10/18/24 01:50 Oxycodone/Acetaminophen (*Crx) 5-325 Mg Tablet PO 1 tablet Q4H PRN Administration Pain Rated 4-6 Pantoprazole Sodium 40 mg 10/03/24 21:00 10/19/24 21:13 Pantoprazole 40 Mg Tablet PO 40 mg QHS TAMIKA Administration Polyethylene Glycol 17 gm 10/05/24 14:48 Polyethylene Glycol 3350 17 Gm Powd.Pack PO QAM PRN Constipation Propranolol HCl 80 mg 10/03/24 09:00 10/20/24 08:48 Propranolol Hcl 40 Mg Tablet PO 80 mg TID TAMIKA Administration Sertraline HCl 50 mg 10/02/24 23:10 10/20/24 08:49 Sertraline Hcl 50 Mg Tablet BY MOUTH 50 mg DAILY TAMIKA Administration Sodium Chloride 1 spray 10/11/24 16:22 10/12/24 00:02 Saline 0.65% Fabiano Soln 44 Ml Btl NASAL 1 spray Q6HR PRN Administration Congestion Radiology Results: ITS Impressions Foot X-Ray 10/02/24 14:32 IMPRESSION: 1. Nondisplaced fracture of lateral aspect of head of first proximal phalanx. 2. Nondisplaced stellate fracture of tuft of first distal phalanx. 3. Mild polyarticular osteoarthritis. Renal Ultrasound 10/07/24 11:52 IMPRESSION: 1. 3.4 cm mixed solid and cystic lesion at the upper pole the right kidney with 2 cm solid nodular component which is concerning for renal cell carcinoma. Recommend urologic consultation and further evaluation with pre and postcontrast MRI or CT. 2. No hydronephrosis in either kidney. 3. Trabeculated bladder wall which can be seen with neurogenic bladder or chronic outlet obstruction such as in the setting of prostatomegaly. Renal Scan Nuclear Medicine 10/13/24 14:38 IMPRESSION: 1. Symmetric kidney function. 2. Delayed uptake and clearance of activity from the kidneys, consistent with decreased kidney function. Chest X-Ray 10/17/24 16:14 IMPRESSION: Left internal jugular central venous tunneled hemodialysis catheter in position and ready for immediate use Labs Labs: Laboratory Results - last 24 hr 10/19/24 10/19/24 10/20/24 16:42 21:13 06:24 WBC 7.0 RBC 3.00 L Hgb 9.2 L Hct 28.3 L MCV 94.3 MCH 30.7 MCHC 32.5 RDW 14.4 Plt Count 246 MPV 10.3 Immature Gran % (Auto) 0.4 Neut % (Auto) 58.9 Lymph % (Auto) 25.3 [place] % (Auto) 11.1 H Eos % (Auto) 4.0 Baso % (Auto) 0.3 Lymph # (Auto) 1.76 [place] # (Auto) 0.8 H Eos # (Auto) 0.3 Baso # (Auto) 0.0 Abs Immat Gran (auto) 0.03 Absolute Neuts (auto) 4.1 Absolute Nucleated RBC 0.000 Nucleated RBC % 0.0 Sodium 136 L Potassium 4.3 Chloride 102 Carbon Dioxide 24 Anion Gap 10 BUN 53 H Creatinine 5.92 H Estim Creat Clear Calc 16 Estimated GFR 10 L Glucose 153 H POC Capillary Glucose 171 H 176 H Calcium 6.8 L Phosphorus 5.2 H Magnesium 2.1 Total Bilirubin 0.9 AST 32 ALT 16 Alkaline Phosphatase 130 H Total Protein 6.0 L Albumin 2.4 L 10/20/24 10/20/24 08:03 11:56 WBC RBC Hgb Hct MCV MCH MCHC RDW Plt Count MPV Immature Gran % (Auto) Neut % (Auto) Lymph % (Auto) [place] % (Auto) Eos % (Auto) Baso % (Auto) Lymph # (Auto) [place] # (Auto) Eos # (Auto) Baso # (Auto) Abs Immat Gran (auto) Absolute Neuts (auto) Absolute Nucleated RBC Nucleated RBC % Sodium Potassium Chloride Carbon Dioxide Anion Gap BUN Creatinine Estim Creat Clear Calc Estimated GFR Glucose POC Capillary Glucose 148 H 129 H Calcium Phosphorus Magnesium Total Bilirubin AST ALT Alkaline Phosphatase Total Protein Albumin Quality VTE Prophylaxis VTE prophylaxis: mechanical ordered and pharmacologic ordered
--- NOTE | 2024-10-20 15:00 | P.PNNP_ITS ---
Progress Note: A&P Assessment and Plan (1) JUAN CARLOS (acute kidney injury): Code(s): N17.9 - Acute kidney failure, unspecified Status: Acute Assessment and Plan: * as noted on admission - creatinine of 3.32mg/dl * came down to 2.9mg/dl transiently * presumed etiology likely secondary to acute infection - right great toe diabetic foot ulcer + cellulitis * however, cannot discount an element of CKD progression * evaluation to date noted: * renal u/s without hydro but concerning for renal mass * urine electrolytes pre-renal * urine eosinophils noted * UA (from 10/07) suggestive of infection -- culture Annie (but low CFU) * proteinuria noted * CPK normal * renal scan suggestive of ATN * HD today * plan for renal biopsy tomorrow * follow trend of labs and UOP for potential recovery (2) Chronic kidney disease, stage IV (severe): Code(s): N18.4 - Chronic kidney disease, stage 4 (severe) Status: Chronic Assessment and Plan: * baseline creatinine has been running 2.3 - 2.7mg/dl in the last few years * however, last creatinine up to 2.86mg/dl in July 2024 * due to diabetes, hypertension, vascular disease, (CAD + CHF + hyperlipidemia + PVD), and age * follows with Dr. Caprice Gusman for managment of his chronic kidney disease (3) Diabetic foot ulcer: Code(s): E11.621 - Type 2 diabetes mellitus with foot ulcer; L97.509 - Non-pressure chronic ulcer of other part of unspecified foot with unspecified severity Status: Acute Assessment and Plan: * as noted on admission * poor wound healing noted since injury * X-ray with right great toe fracture * complicated by cellulitis of right great toe * s/p right great toe amputation by Surgery (on 10/06) * culture data noted * blood cultures negative * would culture with Staph aureus * on antibiotics * local wound care (4) COVID: Code(s): U07.1 - COVID-19 Status: Acute Assessment and Plan: * as noted by recent testing * no evidence of hypoxia. no fever. * possibly playing a role with #1(?) * continue supportive care (5) Diastolic dysfunction: Onset Date: 03/2022 Code(s): I51.89 - Other ill-defined heart diseases Status: Chronic Assessment and Plan: * appears compensated at this time * home diuretic therapy on hold due to #1 * urine output not being recorded * monitor volume and respiratory status (6) Anemia: Code(s): D64.9 - Anemia, unspecified Status: Chronic Assessment and Plan: * presumably related to CKD from some contributions from JUAN CARLOS, acute infection, and recent operative procedure * Epogen with HD * follow trend of H/H (7) Urinary tract infection: Code(s): N39.0 - Urinary tract infection, site not specified Status: Acute Assessment and Plan: * recent UA (10/07) suggestive * urine culture x 2 with low CFU Annie (8) Hypertension: Code(s): I10 - Essential (primary) hypertension Status: Chronic Assessment and Plan: * reasonable control * follow trend of hemodynamics (9) Renal mass, right: Code(s): N28.89 - Other specified disorders of kidney and ureter Status: Acute Assessment and Plan: * as noted on renal ultrasound * Urology recommendations noted (10) Type 2 diabetes mellitus with diabetic polyneuropathy: Code(s): E11.42 - Type 2 diabetes mellitus with diabetic polyneuropathy Status: Acute Assessment and Plan: * follow accu-checks * brittle control noted - last HgbA1c noted * glycemic control per hospitalist Will continue to follow. L Subjective Date/time seen: 10/20/24 15:00 Interval history: Follow-up for acute kidney injury/acute renal failure on chronic kidney disease. Chart reviewed since last seen -- seen earlier today and currently while receiving hemodialysis (seen on HD at 2:50PM); still no evidence of renal recovery despite all interventions to date; still making some urine but not as much as before; no other issues/events overnight or earlier this morning. Exam 2 Narrative: General: elderly WD/WN male in NAD Heart: normal S1 and S2; no rub Lungs: clear anteriorly Abdomen: soft, nontender, nondistended, positive bowel sounds Extremities: no cyanosis or clubbing; trace edema Skin: dressings over right foot in place Objective Data Vital Signs Vital Signs: Vital Signs Temp Pulse Resp BP Pulse Ox O2 Del Method O2 Flow Rate 10/20/24 15:00 54 L 152/79 H 10/20/24 14:45 54 L 135/71 10/20/24 14:30 57 L 158/78 H 10/20/24 14:12 98.1 F 57 L 19 149/79 H 99 10/20/24 14:12 55 L 153/80 H 10/20/24 14:12 0 10/20/24 12:55 98 10/20/24 12:00 98.7 F 59 L 20 165/91 H 98 10/20/24 08:48 88 10/20/24 08:00 Room Air 10/20/24 08:00 98.6 F 61 20 168/78 H 97 10/20/24 04:00 98.6 F 95 18 133/71 99 10/19/24 21:10 98.5 F 98 16 138/73 98 10/19/24 20:00 Room Air Intake/Output Intake/Output: Intake & Output 10/17/24 10/18/24 10/19/24 10/20/24 23:59 23:59 23:59 23:59 Intake Total 990 1170 1760 798 Output Total 600 037 096 3717 Balance 493 510 1801 -202 Meds/Results Medications: Active Medications Generic Name Dose Route Start Last Admin Trade Name Freq PRN Reason Stop Dose Admin Acetaminophen 650 mg 10/02/24 16:55 10/20/24 16:47 Acetaminophen 325 Mg Tablet PO 650 mg Q4H PRN Administration Mild Pain (1-3) or Fever Albuterol 2.5 mg 10/12/24 13:19 Albuterol Sulfate Neb 2.5 Mg/3 Ml Inh INHALATION Q4HRT PRN Shortness Of Breath Amoxicillin/Clavulanate Potassium 1 tablet 10/17/24 12:13 Amoxicillin/Clavulanate K 500-125 Mg Tab PO 10/20/24 23:59 DAILY PRN DIALYSIS Aspirin 81 mg 10/03/24 09:00 10/20/24 08:58 Aspirin 81 Mg Enteric Tablet PO 81 mg QAM TAMIKA Administration Atorvastatin Calcium 80 mg 10/03/24 09:00 10/20/24 08:48 Atorvastatin 40 Mg Tablet PO 80 mg DAILY TAMIKA Administration Bumetanide 0.5 mg 10/03/24 09:00 10/08/24 08:32 Bumetanide 0.5 Mg Tablet PO 0.5 mg DAILY TAMIKA Administration Buspirone HCl 10 mg 10/03/24 09:00 10/20/24 16:51 Buspirone Hcl 10 Mg Tablet PO 10 mg BID TAMIKA Administration Calcitriol 0.25 mcg 10/03/24 09:00 10/20/24 08:49 Calcitriol 0.25 Mcg Capsule PO 0.25 mcg [id number] TAMIKA Administration Dextrose 12.5 gm 10/02/24 17:35 10/17/24 15:55 Dextrose 50% 25 Gm/50 Ml Syringe IV PUSH 12.5 gm PRN PRN Administration Hypoglycemia Protocol Docusate Sodium 100 mg 10/03/24 09:00 10/20/24 16:51 Docusate Sodium 100 Mg Capsule PO 100 mg BID TAMIKA Administration Ezetimibe 10 mg 10/03/24 09:00 10/20/24 08:49 Ezetimibe 10 Mg Tablet PO 10 mg DAILY TAMIKA Administration Empagliflozin 25 mg 10/03/24 09:00 10/17/24 15:30 Empagliflozin 25 Mg Tablet BY MOUTH Not Given QAM TAMIKA Epoetin Marco-epbx 10,000 units 10/20/24 19:06 10/20/24 17:33 Epoetin Marco-Epbx 10,000 Units/Ml Vial IV PUSH 10/20/24 19:07 10,000 units ONCE ONE Administration Fluticasone Propionate 1 spray 10/11/24 21:00 10/20/24 08:59 Fluticasone Propionate 0.05% Na Spr 16 Gm Btl (*Bkc) NASAL 1 spray Q12HR TAMIKA Administration Glucagon 1 mg 10/02/24 17:35 Glucagon For Inj 1 Mg Vial IM PRN PRN Hypoglycemia Protocol Glucose 15 gm 10/02/24 17:35 10/13/24 17:38 Glucose Oral Gel 15 Gm Of Glucse In 37.5 Gm Tube PO 15 gm PRN PRN Administration Hypoglycemia Protocol Guaifenesin 600 mg 10/15/24 12:30 10/20/24 08:48 Guaifenesin 12 Hr 600 Mg Tabcr PO 10/22/24 12:29 600 mg Q12HR TAMIKA Administration Heparin Sodium (Porcine) 5,000 units 10/14/24 21:00 10/20/24 08:49 Heparin Sodium 5,000 Units/Ml Vial SUB-Q 5,000 units Q12HR TAMIKA Administration Dextrose 1,000 mls @ 100 mls/hr 10/02/24 17:35 Dextrose 5% 1,000 Ml IVPB PRN PRN Hypoglycemia Protocol Albumin Human 50 mls @ 999 mls/hr 10/17/24 16:39 Albutein IVPB 11/16/24 16:38 Q10M PRN HYPOTENSION Insulin Aspart 3 - 6 units 10/03/24 08:00 10/20/24 17:56 Insulin Aspart (*Bkc) 100 Units/Ml SUB-Q Not Given TIDWM [facility] Protocol Insulin Aspart 1 - 3 units 10/02/24 21:00 10/19/24 21:14 Insulin Aspart (*Bkc) 100 Units/Ml SUB-Q Not Given HS [facility] Protocol Insulin Human Regular 25 units 10/03/24 13:00 10/20/24 12:50 Insulin Human Regular (*Bkc) 100 Units/Ml SUB-Q Not Given DAILY@1200 [facility] Insulin Human Regular 25 units 10/16/24 09:35 10/20/24 08:58 Insulin Human Regular (*Bkc) 100 Units/Ml SUB-Q 25 units DAILY@0800 [facility] Administration Isosorbide Mononitrate 90 mg 10/03/24 09:00 10/20/24 08:49 Isosorbide Mononitrate 30 Mg Tab.Er.24h PO 90 mg DAILY [facility] Administration Loperamide HCl 2 mg 10/13/24 13:26 Loperamide Hcl 2 Mg Capsule PO PRN PRN Diarrhea Morphine Sulfate 2 mg 10/17/24 16:31 Morphine Sulfate (*Crx) 2 Mg/Ml Inj IV PUSH Q2H PRN Breakthrough Pain Rated 7-10 Ondansetron HCl 4 mg 10/02/24 17:35 10/18/24 18:40 Ondansetron Inj 4 Mg/2 Ml Vial IV PUSH 4 mg Q6H PRN Administration Nausea And Vomiting Ondansetron HCl 4 mg 10/18/24 18:21 Ondansetron Inj 4 Mg/2 Ml Vial IV PUSH Q6H PRN Nausea And Vomiting Oxycodone/Acetaminophen 1 tablet 10/17/24 16:31 10/18/24 01:50 Oxycodone/Acetaminophen (*Crx) 5-325 Mg Tablet PO 1 tablet Q4H PRN Administration Pain Rated 4-6 Pantoprazole Sodium 40 mg 10/03/24 21:00 10/19/24 21:13 Pantoprazole 40 Mg Tablet PO 40 mg QHS TAMIKA Administration Polyethylene Glycol 17 gm 10/05/24 14:48 Polyethylene Glycol 3350 17 Gm Powd.Pack PO QAM PRN Constipation Propranolol HCl 80 mg 10/03/24 09:00 10/20/24 16:50 Propranolol Hcl 40 Mg Tablet PO 80 mg TID TAMIKA Administration Sertraline HCl 50 mg 10/02/24 23:10 10/20/24 08:49 Sertraline Hcl 50 Mg Tablet BY MOUTH 50 mg DAILY TAMIKA Administration Sodium Chloride 1 spray 10/11/24 16:22 10/12/24 00:02 Saline 0.65% Fabiano Soln 44 Ml Btl NASAL 1 spray Q6HR PRN Administration Congestion Radiology Results: ITS Impressions Foot X-Ray 10/02/24 14:32 IMPRESSION: 1. Nondisplaced fracture of lateral aspect of head of first proximal phalanx. 2. Nondisplaced stellate fracture of tuft of first distal phalanx. 3. Mild polyarticular osteoarthritis. Renal Ultrasound 10/07/24 11:52 IMPRESSION: 1. 3.4 cm mixed solid and cystic lesion at the upper pole the right kidney with 2 cm solid nodular component which is concerning for renal cell carcinoma. Recommend urologic consultation and further evaluation with pre and postcontrast MRI or CT. 2. No hydronephrosis in either kidney. 3. Trabeculated bladder wall which can be seen with neurogenic bladder or chronic outlet obstruction such as in the setting of prostatomegaly. Renal Scan Nuclear Medicine 10/13/24 14:38 IMPRESSION: 1. Symmetric kidney function. 2. Delayed uptake and clearance of activity from the kidneys, consistent with decreased kidney function. Chest X-Ray 10/17/24 16:14 IMPRESSION: Left internal jugular central venous tunneled hemodialysis catheter in position and ready for immediate use Labs Labs: Laboratory Tests 10/20/24 06:24 10/20/24 06:24 Calcium 6.8 L Phosphorus 5.2 H Magnesium 2.1 Total Bilirubin 0.9 AST 32 ALT 16 Alkaline Phosphatase 130 H Total Protein 6.0 L Albumin 2.4 L
[2024-10-20] MEDS: ACETAMINOPHEN 325 MG TABLET 650 MG PO (16:47)
[2024-10-20] MEDS: EPOETIN ALFA-EPBX 10,000 UNITS/ML VIAL 10000 UNITS IV PUSH (17:33)
[2024-10-20 21:12] LABS: Glucose Point of Care 92 mg/dl (65-105)
[2024-10-20] MEDS: PANTOPRAZOLE 40 MG TABLET PO (21:41)
[2024-10-20] MEDS: hydrALAZINE HCL 25 MG TABLET PO (21:44)
[2024-10-21 06:49] LABS: Basophils Percent Auto 0.3 % (0.2-1.2); Eosinophils Absolute Auto 0.2 K/mm3 (0-0.3); Eosinophils Percent Auto 3.1 % (0-4.4); Hematocrit 30.4 % (42.0-52.0); Hemoglobin 9.6 g/dL (14.0-18.0); Immature Granulocyte Absolute 0.06 K/mm3 (0.00-0.031); Immature Granulocyte Percent A 0.8 % (0-0.5); Lymphocytes Absolute Auto 1.55 K/mm3 (0.9-3.2); Lymphocytes Percent Auto 21.7 % (18.3-44.2); Mean Corpuscular HGB Conc 31.6 g/dl (32-36); Mean Corpuscular Hemoglobin 30.2 pg (26-34); Mean Corpuscular Volume 95.6 fl (80-100); Mean Platelet Volume 10.7 fl (7.4-10.4); Monocytes Absolute Auto 0.8 K/mm3 (0.1-0.6); Monocytes Percent Auto 11.1 % (2.6-8.5); Neutrophils Absolute Auto 4.5 K/mm3 (1.3-6.7); Platelet Count Result 305 k/mm3 (150-375); Red Blood Count 3.18 M/mm3 (4.6-6.20); Red Cell Distribution Width 14.2 % (11.5-14.5); White Blood Count 7.1 K/mm3 (4.5-10.0)
[2024-10-21 07:04] LABS: Alanine Aminotransferase 15 U/L (6-50); Albumin Level 2.7 g/dL (3.5-5.1); Alkaline Phosphatase 136 U/L (38-126); Anion Gap 10 mmol/L (4-12); Aspartate Amino Transferase 45 U/L (17-59); Bilirubin,Total 0.9 mg/dL (0.2-1.3); Blood Urea Nitrogen 34 mg/dL (9-20); Calcium 7.3 mg/dL (8.4-10.2); Carbon Dioxide 24 mmol/L (22-30); Chloride 101 mmol/L (98-107); Estimated CRCL calculation 21 ml/min; Estimated Glomerular Filt Rate 13; Glucose 147 mg/dL (65-110); INR 1.1; Magnesium 2.1 mg/dL (1.6-2.3); Potassium 4.1 mmol/L (3.4-5.0); Prothrombin Time 14.2 Seconds (11.1-14.7); Sodium 135 mmol/L (137-145)
[2024-10-21 07:06] LABS: Partial Thromboplastin Time 45.2 Seconds (22.3-36.8)
[2024-10-21 08:00] VITALS: BP 161/81; PULSE 64; RESP 18; TEMP 37.2; O2SAT 97
[2024-10-21 08:22] LABS: Glucose Point of Care 150 mg/dl (65-105)
[2024-10-21] MEDS: guaiFENesin 12 HR 600 MG TABCR PO ×2 (09:14→21:00)
[2024-10-21] MEDS: SERTRALINE HCL 50 MG TABLET BY MOUTH (09:14)
[2024-10-21 09:15] VITALS: PULSE 72; O2SAT 100
[2024-10-21] MEDS: busPIRone HCL 10 MG TABLET PO ×2 (09:15→16:32)
[2024-10-21] MEDS: DOCUSATE SODIUM 100 MG CAPSULE PO ×2 (09:15→16:32)
[2024-10-21] MEDS: EZETIMIBE 10 MG TABLET PO (09:15)
[2024-10-21] MEDS: hydrALAZINE HCL 25 MG TABLET PO ×2 (09:15→16:32)
[2024-10-21] MEDS: PROPRANOLOL HCL 40 MG TABLET 80 MG PO ×2 (09:15→16:32)
[2024-10-21] MEDS: ISOSORBIDE MONONITRATE 30 MG TAB.ER.24H 90 MG PO (09:15)
[2024-10-21] MEDS: FLUTICASONE PROPIONATE 0.05% NA SPR 16 GM BTL (*BKC) 1 SPRAY NASAL ×2 (09:15→21:01)
[2024-10-21] MEDS: ATORVASTATIN 40 MG TABLET 80 MG PO (09:15)
--- NOTE | 2024-10-21 09:20 | P.PNNP_ITS ---
Progress Note: A&P Assessment and Plan (1) JUAN CARLOS (acute kidney injury): Code(s): N17.9 - Acute kidney failure, unspecified Status: Acute Assessment and Plan: * as noted on admission - creatinine of 3.32mg/dl * came down to 2.9mg/dl transiently * presumed etiology likely secondary to acute infection - right great toe diabetic foot ulcer + cellulitis * however, cannot discount an element of CKD progression * evaluation to date noted: * renal u/s without hydro but concerning for renal mass * urine electrolytes pre-renal * urine eosinophils noted * UA (from 10/07) suggestive of infection -- culture Annie (but low CFU) * proteinuria noted * CPK normal * renal scan suggestive of ATN * HD yesterday -- plan next treatment tomorrow or day after * plan for renal biopsy today * follow trend of labs and UOP for potential recovery (2) Chronic kidney disease, stage IV (severe): Code(s): N18.4 - Chronic kidney disease, stage 4 (severe) Status: Chronic Assessment and Plan: * baseline creatinine has been running 2.3 - 2.7mg/dl in the last few years * however, last creatinine up to 2.86mg/dl in July 2024 * due to diabetes, hypertension, vascular disease, (CAD + CHF + hyperlipidemia + PVD), and age * follows with Dr. Caprice Gusman for managment of his chronic kidney disease (3) Diabetic foot ulcer: Code(s): E11.621 - Type 2 diabetes mellitus with foot ulcer; L97.509 - Non-pressure chronic ulcer of other part of unspecified foot with unspecified severity Status: Acute Assessment and Plan: * as noted on admission * poor wound healing noted since injury * X-ray with right great toe fracture * complicated by cellulitis of right great toe * s/p right great toe amputation by Surgery (on 10/06) * culture data noted * blood cultures negative * would culture with Staph aureus * on antibiotics * local wound care (4) COVID: Code(s): U07.1 - COVID-19 Status: Acute Assessment and Plan: * as noted by recent testing * no evidence of hypoxia. no fever. * possibly playing a role with #1(?) * continue supportive care (5) Diastolic dysfunction: Onset Date: 03/2022 Code(s): I51.89 - Other ill-defined heart diseases Status: Chronic Assessment and Plan: * appears compensated at this time * home diuretic therapy on hold due to #1 * urine output not being recorded * monitor volume and respiratory status (6) Anemia: Code(s): D64.9 - Anemia, unspecified Status: Chronic Assessment and Plan: * presumably related to CKD from some contributions from JUAN CARLOS, acute infection, and recent operative procedure * Epogen with HD * follow trend of H/H (7) Urinary tract infection: Code(s): N39.0 - Urinary tract infection, site not specified Status: Acute Assessment and Plan: * recent UA (10/07) suggestive * urine culture x 2 with low CFU Annie (8) Hypertension: Code(s): I10 - Essential (primary) hypertension Status: Chronic Assessment and Plan: * reasonable control * follow trend of hemodynamics (9) Renal mass, right: Code(s): N28.89 - Other specified disorders of kidney and ureter Status: Acute Assessment and Plan: * as noted on renal ultrasound * Urology recommendations noted (10) Type 2 diabetes mellitus with diabetic polyneuropathy: Code(s): E11.42 - Type 2 diabetes mellitus with diabetic polyneuropathy Status: Acute Assessment and Plan: * follow accu-checks * brittle control noted - last HgbA1c noted * glycemic control per hospitalist Will continue to follow. L Subjective Date/time seen: 10/21/24 09:20 Interval history: Follow-up for acute kidney injury/acute renal failure on chronic kidney disease. Tolerated dialysis treatment yesterday without any issues or problems; tentatively scheduled for renal biopsy later today; no apparent distress noted at the time of my visit; no other issues/events overnight or earlier this morning. Exam 2 Narrative: General: elderly WD/WN male in NAD Heart: normal S1 and S2; no rub Lungs: clear anteriorly Abdomen: soft, nontender, nondistended, positive bowel sounds Extremities: no cyanosis or clubbing; trace edema Skin: dressings over right foot present Objective Data Vital Signs Vital Signs: Vital Signs Temp Pulse Resp BP Pulse Ox O2 Del Method FiO2 10/21/24 09:15 100 Room Air 10/21/24 09:15 72 10/21/24 08:00 98.9 F 64 18 161/81 H 97 10/20/24 20:00 97.9 F 61 18 158/78 H 100 10/20/24 20:00 59 L 16 100 Room Air 0 10/20/24 18:34 97.8 F 59 L 16 166/77 H 100 Intake/Output Intake/Output: Intake & Output 10/18/24 10/19/24 10/20/24 10/21/24 23:59 23:59 23:59 23:59 Intake Total 1170 1760 1038 300 Output Total 304 451 0736 Balance 401 1660 38 300 Meds/Results Medications: Active Medications Generic Name Dose Route Start Last Admin Trade Name Freq PRN Reason Stop Dose Admin Acetaminophen 650 mg 10/02/24 16:55 10/20/24 16:47 Acetaminophen 325 Mg Tablet PO 650 mg Q4H PRN Administration Mild Pain (1-3) or Fever Albuterol 2.5 mg 10/12/24 13:19 Albuterol Sulfate Neb 2.5 Mg/3 Ml Inh INHALATION Q4HRT PRN Shortness Of Breath Aspirin 81 mg 10/03/24 09:00 10/20/24 08:58 Aspirin 81 Mg Enteric Tablet PO 81 mg QAM TAMIKA Administration Atorvastatin Calcium 80 mg 10/03/24 09:00 10/21/24 09:15 Atorvastatin 40 Mg Tablet PO 80 mg DAILY TAMIKA Administration Bumetanide 0.5 mg 10/03/24 09:00 10/08/24 08:32 Bumetanide 0.5 Mg Tablet PO 0.5 mg DAILY TAMIKA Administration Buspirone HCl 10 mg 10/03/24 09:00 10/21/24 16:32 Buspirone Hcl 10 Mg Tablet PO 10 mg BID TAMIKA Administration Calcitriol 0.25 mcg 10/03/24 09:00 10/20/24 08:49 Calcitriol 0.25 Mcg Capsule PO 0.25 mcg [id number]@0900 TAMIKA Administration Dextrose 12.5 gm 10/02/24 17:35 10/17/24 15:55 Dextrose 50% 25 Gm/50 Ml Syringe IV PUSH 12.5 gm PRN PRN Administration Hypoglycemia Protocol Docusate Sodium 100 mg 10/03/24 09:00 10/21/24 16:32 Docusate Sodium 100 Mg Capsule PO 100 mg BID TAMIKA Administration Ezetimibe 10 mg 10/03/24 09:00 10/21/24 09:15 Ezetimibe 10 Mg Tablet PO 10 mg DAILY TAMIKA Administration Empagliflozin 25 mg 10/03/24 09:00 10/17/24 15:30 Empagliflozin 25 Mg Tablet BY MOUTH Not Given QAM [facility] Fluticasone Propionate 1 spray 10/11/24 21:00 10/21/24 09:15 Fluticasone Propionate 0.05% Na Spr 16 Gm Btl (*Bkc) NASAL 1 spray Q12HR TAMIKA Administration Glucagon 1 mg 10/02/24 17:35 Glucagon For Inj 1 Mg Vial IM PRN PRN Hypoglycemia Protocol Glucose 15 gm 10/02/24 17:35 10/13/24 17:38 Glucose Oral Gel 15 Gm Of Glucse In 37.5 Gm Tube PO 15 gm PRN PRN Administration Hypoglycemia Protocol Guaifenesin 600 mg 10/15/24 12:30 10/21/24 09:14 Guaifenesin 12 Hr 600 Mg Tabcr PO 10/22/24 12:29 600 mg Q12HR TAMIKA Administration Heparin Sodium (Porcine) 5,000 units 10/14/24 21:00 10/21/24 09:13 Heparin Sodium 5,000 Units/Ml Vial SUB-Q Not Given Q12HR [facility] Hydralazine HCl 25 mg 10/20/24 19:00 10/21/24 16:32 Hydralazine Hcl 25 Mg Tablet PO 25 mg BID TAMIKA Administration Dextrose 1,000 mls @ 100 mls/hr 10/02/24 17:35 Dextrose 5% 1,000 Ml IVPB PRN PRN Hypoglycemia Protocol Albumin Human 50 mls @ 999 mls/hr 10/17/24 16:39 Albutein IVPB 11/16/24 16:38 Q10M PRN HYPOTENSION Insulin Aspart 3 - 6 units 10/03/24 08:00 10/21/24 16:33 Insulin Aspart (*Bkc) 100 Units/Ml SUB-Q Not Given TIDWM [facility] Protocol Insulin Aspart 1 - 3 units 10/02/24 21:00 10/20/24 21:45 Insulin Aspart (*Bkc) 100 Units/Ml SUB-Q Not Given HS [facility] Protocol Insulin Human Regular 25 units 10/16/24 09:35 10/21/24 09:13 Insulin Human Regular (*Bkc) 100 Units/Ml SUB-Q Not Given DAILY@0800 [facility] Isosorbide Mononitrate 90 mg 10/03/24 09:00 10/21/24 09:15 Isosorbide Mononitrate 30 Mg Tab.Er.24h PO 90 mg DAILY TAMIKA Administration Loperamide HCl 2 mg 10/13/24 13:26 Loperamide Hcl 2 Mg Capsule PO PRN PRN Diarrhea Morphine Sulfate 2 mg 10/17/24 16:31 Morphine Sulfate (*Crx) 2 Mg/Ml Inj IV PUSH Q2H PRN Breakthrough Pain Rated 7-10 Ondansetron HCl 4 mg 10/02/24 17:35 10/18/24 18:40 Ondansetron Inj 4 Mg/2 Ml Vial IV PUSH 4 mg Q6H PRN Administration Nausea And Vomiting Ondansetron HCl 4 mg 10/18/24 18:21 Ondansetron Inj 4 Mg/2 Ml Vial IV PUSH Q6H PRN Nausea And Vomiting Oxycodone/Acetaminophen 1 tablet 10/17/24 16:31 10/18/24 01:50 Oxycodone/Acetaminophen (*Crx) 5-325 Mg Tablet PO 1 tablet Q4H PRN Administration Pain Rated 4-6 Pantoprazole Sodium 40 mg 10/03/24 21:00 10/20/24 21:41 Pantoprazole 40 Mg Tablet PO 40 mg QHS TAMIKA Administration Polyethylene Glycol 17 gm 10/05/24 14:48 Polyethylene Glycol 3350 17 Gm Powd.Pack PO QAM PRN Constipation Propranolol HCl 80 mg 10/03/24 09:00 10/21/24 16:32 Propranolol Hcl 40 Mg Tablet PO 80 mg TID TAMIKA Administration Sertraline HCl 50 mg 10/02/24 23:10 10/21/24 09:14 Sertraline Hcl 50 Mg Tablet BY MOUTH 50 mg DAILY TAMIKA Administration Sodium Chloride 1 spray 10/11/24 16:22 10/12/24 00:02 Saline 0.65% Fabiano Soln 44 Ml Btl NASAL 1 spray Q6HR PRN Administration Congestion Radiology Results: ITS Impressions Foot X-Ray 10/02/24 14:32 IMPRESSION: 1. Nondisplaced fracture of lateral aspect of head of first proximal phalanx. 2. Nondisplaced stellate fracture of tuft of first distal phalanx. 3. Mild polyarticular osteoarthritis. Renal Ultrasound 10/07/24 11:52 IMPRESSION: 1. 3.4 cm mixed solid and cystic lesion at the upper pole the right kidney with 2 cm solid nodular component which is concerning for renal cell carcinoma. Recommend urologic consultation and further evaluation with pre and postcontrast MRI or CT. 2. No hydronephrosis in either kidney. 3. Trabeculated bladder wall which can be seen with neurogenic bladder or chronic outlet obstruction such as in the setting of prostatomegaly. Renal Scan Nuclear Medicine 10/13/24 14:38 IMPRESSION: 1. Symmetric kidney function. 2. Delayed uptake and clearance of activity from the kidneys, consistent with decreased kidney function. Chest X-Ray 10/17/24 16:14 IMPRESSION: Left internal jugular central venous tunneled hemodialysis catheter in position and ready for immediate use Labs Labs: Laboratory Tests 10/21/24 06:16 10/21/24 06:16 Calcium 7.3 L Magnesium 2.1 Total Bilirubin 0.9 AST 45 ALT 15 Alkaline Phosphatase 136 H Total Protein 6.0 L Albumin 2.7 L
--- NOTE | 2024-10-21 11:58 | P.PNIM_ITS ---
Progress Note: A&P Assessment and Plan (1) Diabetic foot ulcer: Code(s): E11.621 - Type 2 diabetes mellitus with foot ulcer; L97.509 - Non-pressure chronic ulcer of other part of unspecified foot with unspecified severity Status: Acute Assessment and Plan: patient reports injury to right great toe with worsening symptoms patient has severe diabetes and CAD with poor wound healing initial x-ray did show right great toe was also fractured * CRP elevate no WBC * Surgery consulted if debridement or amputation needed * blood cultures no growth today * wound culture ordered * NPO in case of possible procedure * IV cefepime, vancomycin and Flagyl * Will need close glucose control for any type of wound healing patient is a severely uncontrolled diabetic on high-dose insulin 10/04: * Day 1 post-op * Blood cultures NGTD * inoperative wound culture pending * continue with current ABX therapy will de-escalate with Culture and sensitivity * Plan is surgery 10/06 for amputation due to exposed fractured toe 10/05: * Postop day 2 * normal wbc no fever * blood cultures NGTD * wound culture still pending * surgery tomorrow hold morning Lovenox 10/06 10/06: * Amputation 10/06 * Aerobic culture grew Staphylococcus aureus * De-escalated ABX to doxycycline Augmentin times 14 days. 10/07: * Post-op day 2 * Minimal pain * ABX de-escalated based on sensitivities MSSA * 10/08 post op day 3 no specific complaints awaiting PT evaluation to return home with HH is what pt wants 10/09 - will continue current Augmentin and wound treatment plan 10/10 - will continue current plan of treatment 10/12/24: * Continue Augmentin as ordered. * Continue dressing changes. 10/13/24: * Stable without any complaints of pain. Normal WBC's. * Continue dressings as ordered and Augmentin. 10/14/24: * Stable. * Continue Augmentin through 10/20/24. * Pt reports no pain. * No lab evidence of acute infection. 10/15/24 * Stable. * Continue Augmentin through 10/20/24. * Pt reports no pain. * No lab evidence of acute infection. 10/16/24: * Stable. * Continue Augmentin through 10/20/24. * Pt reports no pain. * No lab evidence of acute infection. 10/17/24: * Stable. * Continue Augmentin through 10/20/24. * Pt reports no pain. * No lab evidence of acute infection. 10/18/24: * Stable. * Continue Augmentin through 10/20/24. * Pt reports no pain. * No lab evidence of acute infection. 10/19/24 * Stable. * Continue Augmentin through 10/20/24. * Pt reports no pain. * No lab evidence of acute infection. 10/20/24: * Stable. * Completed Augmentin today. * Pt reports no pain. * No lab evidence of acute infection. 10/21/24: * Stable. * Completed Augmentin on 10/20/24. * Pt reports no pain. * No lab evidence of acute infection. (2) Fracture of right great toe: Code(s): S92.401A - Displaced unspecified fracture of right great toe, initial encounter for closed fracture Status: Acute Assessment and Plan: * Nondisplaced fracture of lateral aspect of head of first proximal phalanx. * Nondisplaced stellate fracture of tuft of first distal phalanx. * Orthopedics consulted * Pain management * elevate at rest * Great toe was Amputated - wound management doing well. 10/12/24: * See #1 - s/p amputation (3) Chronic kidney disease, stage 3b: Code(s): N18.32 - Chronic kidney disease, stage 3b Status: Acute Assessment and Plan: Acute on chronic renal failure Baseline around mid 2.5 * CR 3.32 POA * Currently on vancomycin pharmacy to dose will need to deescalate cultures * Avoid nephrotoxic drugs. * Monitor antihypertensive drug therapy. * Avoid NSAIDs. * Routine CMP monitoring GFR. * Monitor electrolytes especially potassium. * Antibiotic doses depending on creatinine clearance. * Pharmacy does medications. 10/07: * Cr continues to trend up 3.37 today * de-escalated ABX therapy and had IV fluids with no improvement * Nephrology consulted for further evaluation or recommendation baseline mid 2's * Renal US pending 10/08 creat is 4 nephrology rounding see recommendations 10/09 - creat - 4.30, BUN 84, GFR 14. Nephrology aware and monitoring. --> will give 1 liter of IV fluids today 10/10 - creat - 4.57, BUN 81, GFR 13, Nephrology aware and monitoring --> Nephrology to follow. Stopped Bumex prior, worsening Renal function. creat - 5.11, BUN 84, GFR 11, K- 5.1 - Nephrology following as well. 10/12/24: * Upward trend in Cr/BUN continues with labs showing 5.29/ today. * Nephrology is following. * Continue to hold Bumex. * Minimize/eliminate renal offending agents. * Continue to trend renal function with daily labs. 10/13/24: * Acute on chronic progression vs. JUAN CARLOS from COVID * Nephrology continues to follow. * Holding Bumex. * Continue to trend. * NM Renal scan ordered for today. 10/14/24: * NM renal scan shows normal symmetric kidney function and delayed uptake and clearance of activity from within the kidneys, consistent with decreased kidney function. * Interval increase in creatinine to 5.71 today. (3.32 on admission) * Nephrology is following. Etiology uncertain but considers COVID, DM, HTN, Vascular disease and age. * Continue to hold diuretics, but pt is appearing to have some extra fluid on board. * Continue to trend labs. * Minimize renal offending agents. * Low Potassium diet * IVF challenge given again at request of Nephrology. 10/15/24: * NM renal scan shows normal symmetric kidney function and delayed uptake and clearance of activity from within the kidneys, consistent with decreased kidney function. * Creatinine 6.04 today (3.32 on admission). * Nephrology is following. Etiology uncertain but considers COVID, DM, HTN, Vascular disease and age. * Continue to hold diuretics, but pt is appearing to have some extra fluid on board. * Continue to trend labs. * Minimize renal offending agents. * Low Potassium diet 10/16/24: * NM renal scan shows normal symmetric kidney function and delayed uptake and clearance of activity from within the kidneys, consistent with decreased kidney function. * Creatinine 6.43 today (3.32 on admission). * Nephrology is following. Etiology uncertain but considers COVID, DM, HTN, Vascular disease and age. * Continue to hold diuretics, but pt is appearing to have some extra fluid on board. * Continue to trend labs. * Minimize renal offending agents. * Low Potassium diet * NPO after midnight for hemodialysis catheter placement for patient to start hemodialysis. 10/17/24: * NM renal scan shows normal symmetric kidney function and delayed uptake and clearance of activity from within the kidneys, consistent with decreased kidney function. * Creatinine 6.84 today (3.32 on admission). * Nephrology is following. Etiology uncertain but considers COVID, DM, HTN, Vascular disease and age. * Continue to hold diuretics, but pt is appearing to have some extra fluid on board. * Continue to trend labs. * Minimize renal offending agents. * Low Potassium diet * NPO today for hemodialysis catheter placement for patient to start hemodialysis. 10/18/24: * NM renal scan shows normal symmetric kidney function and delayed uptake and clearance of activity from within the kidneys, consistent with decreased kidney function. * Creatinine 5.73 today (3.32 on admission). * Nephrology is following. Etiology uncertain but considers COVID, DM, HTN, Vascular disease and age. * Continue to hold diuretics, but pt is appearing to have some extra fluid on board. * Continue to trend labs. * Minimize renal offending agents. * Low Potassium diet * Hemodialysis today pulled off 519 ml. * follows with Dr. Caprice Gusman for management of his chronic kidney disease 10/19/24: * NM renal scan shows normal symmetric kidney function and delayed uptake and clearance of activity from within the kidneys, consistent with decreased kidney function. * Creatinine 4.71 today (3.32 on admission). * Nephrology is following. Etiology uncertain but considers COVID, DM, HTN, Vascular disease and age. * Continue to hold diuretics, but pt is appearing to have some extra fluid on board. * Continue to trend labs. * Minimize renal offending agents. * Renal dialysis diet * follows with Dr. Caprice Gusman for management of his chronic kidney disease 10/20/24: * NM renal scan shows normal symmetric kidney function and delayed uptake and clearance of activity from within the kidneys, consistent with decreased kidney function. * Creatinine 5.92 today (3.32 on admission). Hemodialysis today. * Nephrology is following. Etiology uncertain but considers COVID, DM, HTN, Vascular disease and age. * Continue to hold diuretics, but pt is appearing to have some extra fluid on board. * Continue to trend labs. * Minimize renal offending agents. * Renal dialysis diet * follows with Dr. Caprice Gusman for management of his chronic kidney disease * NPO after midnight for an ultrasound biopsy of kidney. 10/21/24: * NM renal scan shows normal symmetric kidney function and delayed uptake and clearance of activity from within the kidneys, consistent with decreased kidney function. * Creatinine 4.43 today (3.32 on admission). Hemodialysis today. * Nephrology is following. Etiology uncertain but considers COVID, DM, HTN, Vascular disease and age. * Continue to hold diuretics, but pt is appearing to have some extra fluid on board. * Continue to trend labs. * Minimize renal offending agents. * Renal dialysis diet * follows with Dr. Caprice Gusman for management of his chronic kidney disease * NPO for an ultrasound biopsy of kidney today. (4) Type 2 diabetes mellitus with diabetic polyneuropathy: Code(s): E11.42 - Type 2 diabetes mellitus with diabetic polyneuropathy Status: Acute Assessment and Plan: * Diabetic diet * Holding semaglutide * Hemoglobin A1c pending * Accuchecks ACHS * SSI moderate dosing added * Patient is hard to control diabetic on several diabetic medication, and high- dose insulin started conversion to U 100 while hospitalized and adjust as need currently 65u/25u/10u * Continue Jardiance and Zetia 10/12/24: * Continue current glycemic regimen. * Monitor and adjust as necessary. 10/13/24: * Fasting glucose this AM is 149. * No further adjustments to insulin dosing. * Continue current regimen for management. 10/14/24: * Current regimen is managing well. * A1C is 7.9. * Continue Diabetic/Low potassium diet. 10/15/24: * Current regimen is managing well. * Continue Diabetic/Low potassium diet. 10/16/24: * Adjusted morning regular insulin to 25 units. * Continue Diabetic/Low potassium diet. 10/17/24: * NPO this morning for hemodialysis catheter placement. * Monitor blood sugars. * Hypoglycemic protocol. * Follow diabetic regimen once able to eat. 10/18/24: * Renal dialysis diet. * Jardiance on hold due to low GFR. 10/19/24: * Monitor blood sugars. * Hypoglycemic protocol. * Renal dialysis diet. * Jardiance on hold due to low GFR. 10/20/24: * Monitor blood sugars. * Hypoglycemic protocol. * Renal dialysis diet. * Jardiance on hold due to low GFR. 10/21/24: * Monitor blood sugars. * Hypoglycemic protocol. * Renal dialysis diet. * Jardiance on hold due to low GFR. (5) Diastolic dysfunction: Onset Date: 03/2022 Code(s): I51.89 - Other ill-defined heart diseases Status: Chronic Assessment and Plan: * patient does not appear to be in exacerbation * stopped Bumex 10/12/24: * Continues to appear euvolemic. 10/13/24: * Pt with mild edema to the BUE and the BLE, no pitting. Will need continued close monitoring. Continue to hold Bumex. 10/15/24 * Creatinine 6.04, Bumex on hold. 10/16/24: * Creatinine 6.43, Bumex on hold. 10/17/24: * Creatinine 6.84, Bumex on hold. 10/18/24: * Creatinine 5.73, Bumex on hold. 10/19/24: * Creatinine 4.71, Bumex on hold. 10/20/24: * Creatinine 5.92, Bumex on hold. 10/21/24: * Creatinine 4.43, Bumex on hold. (6) Presence of aortocoronary bypass graft: Onset Date: 10/2017 Code(s): Z95.1 - Presence of aortocoronary bypass graft Status: Acute Assessment and Plan: * Continue Inderal, Aspirin, Lipitor, an Imdur, Atorvastatin 10/13/24: * Continue current meds. (7) COVID: Code(s): U07.1 - COVID-19 Status: Acute Assessment and Plan: 10/12/24: * Supportive care. * No steroids or other antivirals ordered in setting of no supplemental oxygen required. * PRN nebs ordered. 10/13/24: * Continue supportive care. (8) Renal mass, right: Code(s): N28.89 - Other specified disorders of kidney and ureter Status: Acute Assessment and Plan: 10/12/24: * A 3.4 cm mixed solid and cystic lesion at the upper pole the right kidney with 2 cm solid nodular component which is concerning for renal cell carcinoma. Recommend urologic consultation and further evaluation with pre and postcontrast MRI or CT. * Unable to do further imaging at this time due to renal function. * Urology and Nephrology following. 10/13/24: * Discussed with Dr. Jacobsen whether or not it is appropriate to inquire about doing a biopsy of the renal mass and whether or not that is contributing to his renal function, but he does not believe that it is contributing. He further notes that if there is concern for possible neoplastic disease, typically the mass is just resected and not biopsied. (9) Transaminitis: Code(s): R74.01 - Elevation of levels of liver transaminase levels Status: Acute Assessment and Plan: 10/14/24: * New during this admission. * Most likely etiology is having COVID. * Continue to trend. * Pt asympotmatic. If any development of pain, N/V then would consider RUQ US/CT abd pelvis. 10/17/24: * Alkaline phosphatase: 157. 10/18/24: * Alkaline phosphatase: 147. 3/10/14: * Alkaline phosphatase: 134. 3: * Alkaline phosphatase: 130. 10/21/24: * Alkaline phosphatase: 136. (10) Hypocalcemia: Code(s): E83.51 - Hypocalcemia Status: Acute Assessment and Plan: 10/17/24: * Calcium 6.6. * Calcium gluconate 2 gram IVPB given. * Monitor level. 10/18/24: * Calcium 7.2. * Hemodialysis today. 10/19/24: * Calcium 7.0. * Monitor level. 10/20/24: * Calcium 6.8. * Hemodialysis today. * Monitor level. 10/21/24: * Calcium 7.3. * Monitor level. Plan Subjective Date/time seen: 10/21/24 11:58 Interval history: Patient is NPO for an ultrasound guided kidney biopsy. Patient denies chest pain, palpitations, headache, dizziness, nausea, or vomiting. Patient reports that he tolerated dialysis well yesterday. Patient hoping to o home soon. Review of Systems Review of Systems: All systems reviewed & are unremarkable except as noted in HPI and below Exam Const: General: comfortable and no acute distress Resp: Effort & Inspection: normal respiratory effort Auscultation: clear to auscultation bilaterally Cardio: Rate: regular rate Rhythm: regular rhythm GI: GI Palp: Yes Soft to palpation Auscultation: normal bowel sounds Skin: Wounds: wounds noted (Right great toe amputated with small amount of dry blood on gauze. Healing.) Neuro: Speech: normal speech Extrem: General: pedal edema bilaterally (trace edema) Psych: Mental Status: mental status grossly normal Affect: normal affect Objective Data Vital Signs Vital Signs: Vital Signs - 24 hr 10/20/24 12:00 10/20/24 12:55 10/20/24 14:12 Temperature 98.7 F Pulse Rate 59 L 98 Respiratory Rate 20 Blood Pressure 165/91 H Pulse Oximetry 98 Oxygen Delivery Oxygen Flow Rate 0 Fraction of Inspired Oxygen 0 10/20/24 14:12 10/20/24 14:12 10/20/24 14:30 Temperature 98.1 F Pulse Rate 55 L 57 L 57 L Respiratory Rate 19 Blood Pressure 153/80 H 149/79 H 158/78 H Pulse Oximetry 99 Oxygen Delivery Oxygen Flow Rate Fraction of Inspired Oxygen 10/20/24 14:45 10/20/24 15:00 10/20/24 15:15 Temperature Pulse Rate 54 L 54 L 57 L Respiratory Rate Blood Pressure 135/71 152/79 H 160/84 H Pulse Oximetry Oxygen Delivery Oxygen Flow Rate Fraction of Inspired Oxygen 10/20/24 15:30 10/20/24 15:45 10/20/24 16:00 Temperature Pulse Rate 56 L 56 L 56 L Respiratory Rate Blood Pressure 158/88 H 158/84 H 159/84 H Pulse Oximetry Oxygen Delivery Oxygen Flow Rate Fraction of Inspired Oxygen 10/20/24 16:15 10/20/24 16:30 10/20/24 16:45 Temperature Pulse Rate 56 L 58 L 59 L Respiratory Rate Blood Pressure 153/84 H 157/81 H 157/80 H Pulse Oximetry Oxygen Delivery Oxygen Flow Rate Fraction of Inspired Oxygen 10/20/24 16:50 10/20/24 17:00 10/20/24 17:15 Temperature Pulse Rate 72 80 58 L Respiratory Rate Blood Pressure 155/80 H 163/83 H Pulse Oximetry Oxygen Delivery Oxygen Flow Rate Fraction of Inspired Oxygen 10/20/24 17:30 10/20/24 17:45 10/20/24 17:52 Temperature Pulse Rate 60 60 59 L Respiratory Rate Blood Pressure 152/80 H 153/76 H 159/81 H Pulse Oximetry Oxygen Delivery Oxygen Flow Rate Fraction of Inspired Oxygen 10/20/24 18:34 10/20/24 20:00 10/20/24 20:00 Temperature 97.8 F 97.9 F Pulse Rate 59 L 59 L 61 Respiratory Rate 16 16 18 Blood Pressure 166/77 H 158/78 H Pulse Oximetry 100 100 100 Oxygen Delivery Room Air Oxygen Flow Rate Fraction of Inspired Oxygen 0 10/21/24 08:00 10/21/24 09:15 10/21/24 09:15 Temperature 98.9 F Pulse Rate 64 72 Respiratory Rate 18 Blood Pressure 161/81 H Pulse Oximetry 97 100 Oxygen Delivery Room Air Oxygen Flow Rate Fraction of Inspired Oxygen Intake/Output Intake/Output: Intake & Output 10/18/24 10/19/24 10/20/24 10/21/24 23:59 23:59 23:59 23:59 Intake Total 1170 1760 1038 300 Output Total 916 912 6059 Balance 401 1660 38 300 Meds/Results Medications: Active Medications Generic Name Dose Route Start Last Admin Trade Name Freq PRN Reason Stop Dose Admin Acetaminophen 650 mg 10/02/24 16:55 10/20/24 16:47 Acetaminophen 325 Mg Tablet PO 650 mg Q4H PRN Administration Mild Pain (1-3) or Fever Albuterol 2.5 mg 10/12/24 13:19 Albuterol Sulfate Neb 2.5 Mg/3 Ml Inh INHALATION Q4HRT PRN Shortness Of Breath Aspirin 81 mg 10/03/24 09:00 10/20/24 08:58 Aspirin 81 Mg Enteric Tablet PO 81 mg QAM TAMIKA Administration Atorvastatin Calcium 80 mg 10/03/24 09:00 10/21/24 09:15 Atorvastatin 40 Mg Tablet PO 80 mg DAILY TAMIKA Administration Bumetanide 0.5 mg 10/03/24 09:00 10/08/24 08:32 Bumetanide 0.5 Mg Tablet PO 0.5 mg DAILY TAMIKA Administration Buspirone HCl 10 mg 10/03/24 09:00 10/21/24 09:15 Buspirone Hcl 10 Mg Tablet PO 10 mg BID TAMIKA Administration Calcitriol 0.25 mcg 10/03/24 09:00 10/20/24 08:49 Calcitriol 0.25 Mcg Capsule PO 0.25 mcg [id number] TAMIKA Administration Dextrose 12.5 gm 10/02/24 17:35 10/17/24 15:55 Dextrose 50% 25 Gm/50 Ml Syringe IV PUSH 12.5 gm PRN PRN Administration Hypoglycemia Protocol Docusate Sodium 100 mg 10/03/24 09:00 10/21/24 09:15 Docusate Sodium 100 Mg Capsule PO 100 mg BID TAMIKA Administration Ezetimibe 10 mg 10/03/24 09:00 10/21/24 09:15 Ezetimibe 10 Mg Tablet PO 10 mg DAILY TAMIKA Administration Empagliflozin 25 mg 10/03/24 09:00 10/17/24 15:30 Empagliflozin 25 Mg Tablet BY MOUTH Not Given QAM TAMIKA Fluticasone Propionate 1 spray 10/11/24 21:00 10/21/24 09:15 Fluticasone Propionate 0.05% Na Spr 16 Gm Btl (*Bkc) NASAL 1 spray Q12HR TAMIKA Administration Glucagon 1 mg 10/02/24 17:35 Glucagon For Inj 1 Mg Vial IM PRN PRN Hypoglycemia Protocol Glucose 15 gm 10/02/24 17:35 10/13/24 17:38 Glucose Oral Gel 15 Gm Of Glucse In 37.5 Gm Tube PO 15 gm PRN PRN Administration Hypoglycemia Protocol Guaifenesin 600 mg 10/15/24 12:30 10/21/24 09:14 Guaifenesin 12 Hr 600 Mg Tabcr PO 10/22/24 12:29 600 mg Q12HR TAMIKA Administration Heparin Sodium (Porcine) 5,000 units 10/14/24 21:00 10/21/24 09:13 Heparin Sodium 5,000 Units/Ml Vial SUB-Q Not Given Q12HR TAMIKA Hydralazine HCl 25 mg 10/20/24 19:00 10/21/24 09:15 Hydralazine Hcl 25 Mg Tablet PO 25 mg BID TAMIKA Administration Dextrose 1,000 mls @ 100 mls/hr 10/02/24 17:35 Dextrose 5% 1,000 Ml IVPB PRN PRN Hypoglycemia Protocol Albumin Human 50 mls @ 999 mls/hr 10/17/24 16:39 Albutein IVPB 11/16/24 16:38 Q10M PRN HYPOTENSION Insulin Aspart 3 - 6 units 10/03/24 08:00 10/21/24 09:13 Insulin Aspart (*Bkc) 100 Units/Ml SUB-Q Not Given TIDWM [facility] Protocol Insulin Aspart 1 - 3 units 10/02/24 21:00 10/20/24 21:45 Insulin Aspart (*Bkc) 100 Units/Ml SUB-Q Not Given HS [facility] Protocol Insulin Human Regular 25 units 10/03/24 13:00 10/20/24 12:50 Insulin Human Regular (*Bkc) 100 Units/Ml SUB-Q Not Given DAILY@1200 [facility] Insulin Human Regular 25 units 10/16/24 09:35 10/21/24 09:13 Insulin Human Regular (*Bkc) 100 Units/Ml SUB-Q Not Given DAILY@0800 [facility] Isosorbide Mononitrate 90 mg 10/03/24 09:00 10/21/24 09:15 Isosorbide Mononitrate 30 Mg Tab.Er.24h PO 90 mg DAILY TAMIKA Administration Loperamide HCl 2 mg 10/13/24 13:26 Loperamide Hcl 2 Mg Capsule PO PRN PRN Diarrhea Morphine Sulfate 2 mg 10/17/24 16:31 Morphine Sulfate (*Crx) 2 Mg/Ml Inj IV PUSH Q2H PRN Breakthrough Pain Rated 7-10 Ondansetron HCl 4 mg 10/02/24 17:35 10/18/24 18:40 Ondansetron Inj 4 Mg/2 Ml Vial IV PUSH 4 mg Q6H PRN Administration Nausea And Vomiting Ondansetron HCl 4 mg 10/18/24 18:21 Ondansetron Inj 4 Mg/2 Ml Vial IV PUSH Q6H PRN Nausea And Vomiting Oxycodone/Acetaminophen 1 tablet 10/17/24 16:31 10/18/24 01:50 Oxycodone/Acetaminophen (*Crx) 5-325 Mg Tablet PO 1 tablet Q4H PRN Administration Pain Rated 4-6 Pantoprazole Sodium 40 mg 10/03/24 21:00 10/20/24 21:41 Pantoprazole 40 Mg Tablet PO 40 mg QHS TAMIKA Administration Polyethylene Glycol 17 gm 10/05/24 14:48 Polyethylene Glycol 3350 17 Gm Powd.Pack PO QAM PRN Constipation Propranolol HCl 80 mg 10/03/24 09:00 10/21/24 09:15 Propranolol Hcl 40 Mg Tablet PO 80 mg TID TAIMKA Administration Sertraline HCl 50 mg 10/02/24 23:10 10/21/24 09:14 Sertraline Hcl 50 Mg Tablet BY MOUTH 50 mg DAILY TAMIKA Administration Sodium Chloride 1 spray 10/11/24 16:22 10/12/24 00:02 Saline 0.65% Fabiano Soln 44 Ml Btl NASAL 1 spray Q6HR PRN Administration Congestion Radiology Results: ITS Impressions Foot X-Ray 10/02/24 14:32 IMPRESSION: 1. Nondisplaced fracture of lateral aspect of head of first proximal phalanx. 2. Nondisplaced stellate fracture of tuft of first distal phalanx. 3. Mild polyarticular osteoarthritis. Renal Ultrasound 10/07/24 11:52 IMPRESSION: 1. 3.4 cm mixed solid and cystic lesion at the upper pole the right kidney with 2 cm solid nodular component which is concerning for renal cell carcinoma. Recommend urologic consultation and further evaluation with pre and postcontrast MRI or CT. 2. No hydronephrosis in either kidney. 3. Trabeculated bladder wall which can be seen with neurogenic bladder or chronic outlet obstruction such as in the setting of prostatomegaly. Renal Scan Nuclear Medicine 10/13/24 14:38 IMPRESSION: 1. Symmetric kidney function. 2. Delayed uptake and clearance of activity from the kidneys, consistent with decreased kidney function. Chest X-Ray 10/17/24 16:14 IMPRESSION: Left internal jugular central venous tunneled hemodialysis catheter in position and ready for immediate use Labs Labs: Laboratory Results - last 24 hr 10/20/24 10/20/24 10/21/24 11:56 20:58 06:16 WBC 7.1 RBC 3.18 L Hgb 9.6 L Hct 30.4 L MCV 95.6 MCH 30.2 MCHC 31.6 L RDW 14.2 Plt Count 305 MPV 10.7 H Immature Gran % (Auto) 0.8 H Neut % (Auto) 63.0 Lymph % (Auto) 21.7 Divide % (Auto) 11.1 H Eos % (Auto) 3.1 Baso % (Auto) 0.3 Lymph # (Auto) 1.55 Divide # (Auto) 0.8 H Eos # (Auto) 0.2 Baso # (Auto) 0.0 Abs Immat Gran (auto) 0.06 H Absolute Neuts (auto) 4.5 Absolute Nucleated RBC 0.000 Nucleated RBC % 0.0 PT 14.2 INR 1.1 APTT 45.2 H Sodium 135 L Potassium 4.1 Chloride 101 Carbon Dioxide 24 Anion Gap 10 BUN 34 H D Creatinine 4.43 H Estim Creat Clear Calc 21 Estimated GFR 13 L Glucose 147 H POC Capillary Glucose 129 H 92 Calcium 7.3 L Magnesium 2.1 Total Bilirubin 0.9 AST 45 ALT 15 Alkaline Phosphatase 136 H Total Protein 6.0 L Albumin 2.7 L 10/21/24 08:17 WBC RBC Hgb Hct MCV MCH MCHC RDW Plt Count MPV Immature Gran % (Auto) Neut % (Auto) Lymph % (Auto) Divide % (Auto) Eos % (Auto) Baso % (Auto) Lymph # (Auto) Divide # (Auto) Eos # (Auto) Baso # (Auto) Abs Immat Gran (auto) Absolute Neuts (auto) Absolute Nucleated RBC Nucleated RBC % PT INR APTT Sodium Potassium Chloride Carbon Dioxide Anion Gap BUN Creatinine Estim Creat Clear Calc Estimated GFR Glucose POC Capillary Glucose 150 H Calcium Magnesium Total Bilirubin AST ALT Alkaline Phosphatase Total Protein Albumin Quality VTE Prophylaxis VTE prophylaxis: mechanical ordered and pharmacologic ordered
--- NOTE | 2024-10-21 11:58 | PM.IMPN ---
Progress Note: A&P Assessment and Plan (1) Diabetic foot ulcer: Code(s): E11.621 - Type 2 diabetes mellitus with foot ulcer; L97.509 - Non-pressure chronic ulcer of other part of unspecified foot with unspecified severity Status: Acute Assessment and Plan: patient reports injury to right great toe with worsening symptoms patient has severe diabetes and CAD with poor wound healing initial x-ray did show right great toe was also fractured CRP elevate no WBC Surgery consulted if debridement or amputation needed blood cultures no growth today wound culture ordered NPO in case of possible procedure IV cefepime, vancomycin and Flagyl Will need close glucose control for any type of wound healing patient is a severely uncontrolled diabetic on high-dose insulin 10/04: Day 1 post-op Blood cultures NGTD inoperative wound culture pending continue with current ABX therapy will de-escalate with Culture and sensitivity Plan is surgery 10/06 for amputation due to exposed fractured toe 10/05: Postop day 2 normal wbc no fever blood cultures NGTD wound culture still pending surgery tomorrow hold morning Lovenox 10/06 10/06: Amputation 10/06 Aerobic culture grew Staphylococcus aureus De-escalated ABX to doxycycline Augmentin times 14 days. 10/07: Post-op day 2 Minimal pain ABX de-escalated based on sensitivities MSSA 10/08 post op day 3 no specific complaints awaiting PT evaluation to return home with HH is what pt wants 10/09 - will continue current Augmentin and wound treatment plan 10/10 - will continue current plan of treatment 10/12/24: Continue Augmentin as ordered. Continue dressing changes. 10/13/24: Stable without any complaints of pain. Normal WBC's. Continue dressings as ordered and Augmentin. 10/14/24: Stable. Continue Augmentin through 10/20/24. Pt reports no pain. No lab evidence of acute infection. 10/15/24 Stable. Continue Augmentin through 10/20/24. Pt reports no pain. No lab evidence of acute infection. 10/16/24: Stable. Continue Augmentin through 10/20/24. Pt reports no pain. No lab evidence of acute infection. 10/17/24: Stable. Continue Augmentin through 10/20/24. Pt reports no pain. No lab evidence of acute infection. 10/18/24: Stable. Continue Augmentin through 10/20/24. Pt reports no pain. No lab evidence of acute infection. 10/19/24 Stable. Continue Augmentin through 10/20/24. Pt reports no pain. No lab evidence of acute infection. 10/20/24: Stable. Completed Augmentin today. Pt reports no pain. No lab evidence of acute infection. 10/21/24: Stable. Completed Augmentin on 10/20/24. Pt reports no pain. No lab evidence of acute infection. (2) Fracture of right great toe: Code(s): S92.401A - Displaced unspecified fracture of right great toe, initial encounter for closed fracture Status: Acute Assessment and Plan: Nondisplaced fracture of lateral aspect of head of first proximal phalanx. Nondisplaced stellate fracture of tuft of first distal phalanx. Orthopedics consulted Pain management elevate at rest Great toe was Amputated - wound management doing well. 10/12/24: See #1 - s/p amputation (3) Chronic kidney disease, stage 3b: Code(s): N18.32 - Chronic kidney disease, stage 3b Status: Acute Assessment and Plan: Acute on chronic renal failure Baseline around mid 2.5 CR 3.32 POA Currently on vancomycin pharmacy to dose will need to deescalate cultures Avoid nephrotoxic drugs. Monitor antihypertensive drug therapy. Avoid NSAIDs. Routine CMP monitoring GFR. Monitor electrolytes especially potassium. Antibiotic doses depending on creatinine clearance. Pharmacy does medications. 10/07: Cr continues to trend up 3.37 today de-escalated ABX therapy and had IV fluids with no improvement Nephrology consulted for further evaluation or recommendation baseline mid 2's Renal US pending 10/08 creat is 4 nephrology rounding see recommendations 10/09 - creat - 4.30, BUN 84, GFR 14. Nephrology aware and monitoring. --> will give 1 liter of IV fluids today 10/10 - creat - 4.57, BUN 81, GFR 13, Nephrology aware and monitoring --> Nephrology to follow. Stopped Bumex prior, worsening Renal function. 10/11/ creat - 5.11, BUN 84, GFR 11, K- 5.1 - Nephrology following as well. 10/12/24: Upward trend in Cr/BUN continues with labs showing 5.29/91 today. Nephrology is following. Continue to hold Bumex. Minimize/eliminate renal offending agents. Continue to trend renal function with daily labs. 10/13/24: Acute on chronic progression vs. JUAN CARLOS from COVID Nephrology continues to follow. Holding Bumex. Continue to trend. NM Renal scan ordered for today. 10/14/24: NM renal scan shows normal symmetric kidney function and delayed uptake and clearance of activity from within the kidneys, consistent with decreased kidney function. Interval increase in creatinine to 5.71 today. (3.32 on admission) Nephrology is following. Etiology uncertain but considers COVID, DM, HTN, Vascular disease and age. Continue to hold diuretics, but pt is appearing to have some extra fluid on board. Continue to trend labs. Minimize renal offending agents. Low Potassium diet IVF challenge given again at request of Nephrology. 10/15/24: NM renal scan shows normal symmetric kidney function and delayed uptake and clearance of activity from within the kidneys, consistent with decreased kidney function. Creatinine 6.04 today (3.32 on admission). Nephrology is following. Etiology uncertain but considers COVID, DM, HTN, Vascular disease and age. Continue to hold diuretics, but pt is appearing to have some extra fluid on board. Continue to trend labs. Minimize renal offending agents. Low Potassium diet 10/16/24: NM renal scan shows normal symmetric kidney function and delayed uptake and clearance of activity from within the kidneys, consistent with decreased kidney function. Creatinine 6.43 today (3.32 on admission). Nephrology is following. Etiology uncertain but considers COVID, DM, HTN, Vascular disease and age. Continue to hold diuretics, but pt is appearing to have some extra fluid on board. Continue to trend labs. Minimize renal offending agents. Low Potassium diet NPO after midnight for hemodialysis catheter placement for patient to start hemodialysis. 10/17/24: NM renal scan shows normal symmetric kidney function and delayed uptake and clearance of activity from within the kidneys, consistent with decreased kidney function. Creatinine 6.84 today (3.32 on admission). Nephrology is following. Etiology uncertain but considers COVID, DM, HTN, Vascular disease and age. Continue to hold diuretics, but pt is appearing to have some extra fluid on board. Continue to trend labs. Minimize renal offending agents. Low Potassium diet NPO today for hemodialysis catheter placement for patient to start hemodialysis. 10/18/24: NM renal scan shows normal symmetric kidney function and delayed uptake and clearance of activity from within the kidneys, consistent with decreased kidney function. Creatinine 5.73 today (3.32 on admission). Nephrology is following. Etiology uncertain but considers COVID, DM, HTN, Vascular disease and age. Continue to hold diuretics, but pt is appearing to have some extra fluid on board. Continue to trend labs. Minimize renal offending agents. Low Potassium diet Hemodialysis today pulled off [address] Caprice Gusman for management of his chronic kidney disease 10/19/24: NM renal scan shows normal symmetric kidney function and delayed uptake and clearance of activity from within the kidneys, consistent with decreased kidney function. Creatinine 4.71 today (3.32 on admission). Nephrology is following. Etiology uncertain but considers COVID, DM, HTN, Vascular disease and age. Continue to hold diuretics, but pt is appearing to have some extra fluid on board. Continue to trend labs. Minimize renal offending agents. Renal dialysis diet follows with Dr. Caprice Gusman for management of his chronic kidney disease 10/20/24: NM renal scan shows normal symmetric kidney function and delayed uptake and clearance of activity from within the kidneys, consistent with decreased kidney function. Creatinine 5.92 today (3.32 on admission). Hemodialysis today. Nephrology is following. Etiology uncertain but considers COVID, DM, HTN, Vascular disease and age. Continue to hold diuretics, but pt is appearing to have some extra fluid on board. Continue to trend labs. Minimize renal offending agents. Renal dialysis diet follows with Dr. Caprice Gusman for management of his chronic kidney disease NPO after midnight for an ultrasound biopsy of kidney. 10/21/24: NM renal scan shows normal symmetric kidney function and delayed uptake and clearance of activity from within the kidneys, consistent with decreased kidney function. Creatinine 4.43 today (3.32 on admission). Hemodialysis today. Nephrology is following. Etiology uncertain but considers COVID, DM, HTN, Vascular disease and age. Continue to hold diuretics, but pt is appearing to have some extra fluid on board. Continue to trend labs. Minimize renal offending agents. Renal dialysis diet follows with Dr. Caprice Gusman for management of his chronic kidney disease NPO for an ultrasound biopsy of kidney today. (4) Type 2 diabetes mellitus with diabetic polyneuropathy: Code(s): E11.42 - Type 2 diabetes mellitus with diabetic polyneuropathy Status: Acute Assessment and Plan: Diabetic diet Holding semaglutide Hemoglobin A1c pending Accuchecks ACHS SSI moderate dosing added Patient is hard to control diabetic on several diabetic medication, and high-dose insulin started conversion to U 100 while hospitalized and adjust as need currently 65u/25u/10u Continue Jardiance and Zetia 10/12/24: Continue current glycemic regimen. Monitor and adjust as necessary. 10/13/24: Fasting glucose this AM is 149. No further adjustments to insulin dosing. Continue current regimen for management. 10/14/24: Current regimen is managing well. A1C is 7.9. Continue Diabetic/Low potassium diet. 10/15/24: Current regimen is managing well. Continue Diabetic/Low potassium diet. 10/16/24: Adjusted morning regular insulin to 25 units. Continue Diabetic/Low potassium diet. 10/17/24: NPO this morning for hemodialysis catheter placement. Monitor blood sugars. Hypoglycemic protocol. Follow diabetic regimen once able to eat. 10/18/24: Renal dialysis diet. Jardiance on hold due to low GFR. 10/19/24: Monitor blood sugars. Hypoglycemic protocol. Renal dialysis diet. Jardiance on hold due to low GFR. 10/20/24: Monitor blood sugars. Hypoglycemic protocol. Renal dialysis diet. Jardiance on hold due to low GFR. 10/21/24: Monitor blood sugars. Hypoglycemic protocol. Renal dialysis diet. Jardiance on hold due to low GFR. (5) Diastolic dysfunction: Onset Date: 03/2022 Code(s): I51.89 - Other ill-defined heart diseases Status: Chronic Assessment and Plan: patient does not appear to be in exacerbation stopped Bumex 10/12/24: Continues to appear euvolemic. 10/13/24: Pt with mild edema to the BUE and the BLE, no pitting. Will need continued close monitoring. Continue to hold Bumex. 10/15/24 Creatinine 6.04, Bumex on hold. 10/16/24: Creatinine 6.43, Bumex on hold. 10/17/24: Creatinine 6.84, Bumex on hold. 10/18/24: Creatinine 5.73, Bumex on hold. 10/19/24: Creatinine 4.71, Bumex on hold. 10/20/24: Creatinine 5.92, Bumex on hold. 10/21/24: Creatinine 4.43, Bumex on hold. (6) Presence of aortocoronary bypass graft: Onset Date: 10/2017 Code(s): Z95.1 - Presence of aortocoronary bypass graft Status: Acute Assessment and Plan: Continue Inderal, Aspirin, Lipitor, an Imdur, Atorvastatin 10/13/24: Continue current meds. (7) COVID: Code(s): U07.1 - COVID-19 Status: Acute Assessment and Plan: 10/12/24: Supportive care. No steroids or other antivirals ordered in setting of no supplemental oxygen required. PRN nebs ordered. 10/13/24: Continue supportive care. (8) Renal mass, right: Code(s): N28.89 - Other specified disorders of kidney and ureter Status: Acute Assessment and Plan: 10/12/24: A 3.4 cm mixed solid and cystic lesion at the upper pole the right kidney with 2 cm solid nodular component which is concerning for renal cell carcinoma. Recommend urologic consultation and further evaluation with pre and postcontrast MRI or CT. Unable to do further imaging at this time due to renal function. Urology and Nephrology following. 10/13/24: Discussed with Dr. Jacobsen whether or not it is appropriate to inquire about doing a biopsy of the renal mass and whether or not that is contributing to his renal function, but he does not believe that it is contributing. He further notes that if there is concern for possible neoplastic disease, typically the mass is just resected and not biopsied. (9) Transaminitis: Code(s): R74.01 - Elevation of levels of liver transaminase levels Status: Acute Assessment and Plan: 10/14/24: New during this admission. Most likely etiology is having COVID. Continue to trend. Pt asympotmatic. If any development of pain, N/V then would consider RUQ US/CT abd pelvis. 10/17/24: Alkaline phosphatase: 157. 3/09/13: Alkaline phosphatase: 147. 3/10/14: Alkaline phosphatase: 134. 3/11/11: Alkaline phosphatase: 130. 3: Alkaline phosphatase: 136. (10) Hypocalcemia: Code(s): E83.51 - Hypocalcemia Status: Acute Assessment and Plan: 10/17/24: Calcium 6.6. Calcium gluconate 2 gram IVPB given. Monitor level. 10/18/24: Calcium 7.2. Hemodialysis today. 10/19/24: Calcium 7.0. Monitor level. 10/20/24: Calcium 6.8. Hemodialysis today. Monitor level. 10/21/24: Calcium 7.3. Monitor level. Plan Subjective Date/time seen: 10/21/24 11:58 Interval history: Patient is NPO for an ultrasound guided kidney biopsy. Patient denies chest pain, palpitations, headache, dizziness, nausea, or vomiting. Patient reports that he tolerated dialysis well yesterday. Patient hoping to o home soon. Review of Systems Review of Systems: All systems reviewed & are unremarkable except as noted in HPI and below Exam Const: General: comfortable and no acute distress Resp: Effort & Inspection: normal respiratory effort Auscultation: clear to auscultation bilaterally Cardio: Rate: regular rate Rhythm: regular rhythm GI: GI Palp: Yes Soft to palpation Auscultation: normal bowel sounds Skin: Wounds: wounds noted (Right great toe amputated with small amount of dry blood on gauze. Healing.) Neuro: Speech: normal speech Extrem: General: pedal edema bilaterally (trace edema) Psych: Mental Status: mental status grossly normal Affect: normal affect Objective Data Vital Signs Vital Signs: Vital Signs - 24 hr 10/20/24 12:00 10/20/24 12:55 10/20/24 14:12 Temperature 98.7 F Pulse Rate 59 L 98 Respiratory Rate 20 Blood Pressure 165/91 H Pulse Oximetry 98 Oxygen Delivery Oxygen Flow Rate 0 Fraction of Inspired Oxygen 0 10/20/24 14:12 10/20/24 14:12 10/20/24 14:30 Temperature 98.1 F Pulse Rate 55 L 57 L 57 L Respiratory Rate 19 Blood Pressure 153/80 H 149/79 H 158/78 H Pulse Oximetry 99 Oxygen Delivery Oxygen Flow Rate Fraction of Inspired Oxygen 10/20/24 14:45 10/20/24 15:00 10/20/24 15:15 Temperature Pulse Rate 54 L 54 L 57 L Respiratory Rate Blood Pressure 135/71 152/79 H 160/84 H Pulse Oximetry Oxygen Delivery Oxygen Flow Rate Fraction of Inspired Oxygen 10/20/24 15:30 10/20/24 15:45 10/20/24 16:00 Temperature Pulse Rate 56 L 56 L 56 L Respiratory Rate Blood Pressure 158/88 H 158/84 H 159/84 H Pulse Oximetry Oxygen Delivery Oxygen Flow Rate Fraction of Inspired Oxygen 10/20/24 16:15 10/20/24 16:30 10/20/24 16:45 Temperature Pulse Rate 56 L 58 L 59 L Respiratory Rate Blood Pressure 153/84 H 157/81 H 157/80 H Pulse Oximetry Oxygen Delivery Oxygen Flow Rate Fraction of Inspired Oxygen 10/20/24 16:50 10/20/24 17:00 10/20/24 17:15 Temperature Pulse Rate 72 80 58 L Respiratory Rate Blood Pressure 155/80 H 163/83 H Pulse Oximetry Oxygen Delivery Oxygen Flow Rate Fraction of Inspired Oxygen 10/20/24 17:30 10/20/24 17:45 10/20/24 17:52 Temperature Pulse Rate 60 60 59 L Respiratory Rate Blood Pressure 152/80 H 153/76 H 159/81 H Pulse Oximetry Oxygen Delivery Oxygen Flow Rate Fraction of Inspired Oxygen 10/20/24 18:34 10/20/24 20:00 10/20/24 20:00 Temperature 97.8 F 97.9 F Pulse Rate 59 L 59 L 61 Respiratory Rate 16 16 18 Blood Pressure 166/77 H 158/78 H Pulse Oximetry 100 100 100 Oxygen Delivery Room Air Oxygen Flow Rate Fraction of Inspired Oxygen 0 10/21/24 08:00 10/21/24 09:15 10/21/24 09:15 Temperature 98.9 F Pulse Rate 64 72 Respiratory Rate 18 Blood Pressure 161/81 H Pulse Oximetry 97 100 Oxygen Delivery Room Air Oxygen Flow Rate Fraction of Inspired Oxygen Intake/Output Intake/Output: Intake & Output 10/18/24 10/19/24 10/20/24 10/21/24 23:59 23:59 23:59 23:59 Intake Total 1170 1760 1038 300 Output Total 224 824 5133 Balance 401 1660 38 300 Meds/Results Medications: Active Medications Generic Name Dose Route Start Last Admin Trade Name Freq PRN Reason Stop Dose Admin Acetaminophen 650 mg 10/02/24 16:55 10/20/24 16:47 Acetaminophen 325 Mg Tablet PO 650 mg Q4H PRN Administration Mild Pain (1-3) or Fever Albuterol 2.5 mg 10/12/24 13:19 Albuterol Sulfate Neb 2.5 Mg/3 Ml Inh INHALATION Q4HRT PRN Shortness Of Breath Aspirin 81 mg 10/03/24 09:00 10/20/24 08:58 Aspirin 81 Mg Enteric Tablet PO 81 mg QAM TAMIKA Administration Atorvastatin Calcium 80 mg 10/03/24 09:00 10/21/24 09:15 Atorvastatin 40 Mg Tablet PO 80 mg DAILY TAMIKA Administration Bumetanide 0.5 mg 10/03/24 09:00 10/08/24 08:32 Bumetanide 0.5 Mg Tablet PO 0.5 mg DAILY TAMIKA Administration Buspirone HCl 10 mg 10/03/24 09:00 10/21/24 09:15 Buspirone Hcl 10 Mg Tablet PO 10 mg BID TAMIKA Administration Calcitriol 0.25 mcg 10/03/24 09:00 10/20/24 08:49 Calcitriol 0.25 Mcg Capsule PO 0.25 mcg [id number] TAMIKA Administration Dextrose 12.5 gm 10/02/24 17:35 10/17/24 15:55 Dextrose 50% 25 Gm/50 Ml Syringe IV PUSH 12.5 gm PRN PRN Administration Hypoglycemia Protocol Docusate Sodium 100 mg 10/03/24 09:00 10/21/24 09:15 Docusate Sodium 100 Mg Capsule PO 100 mg BID [facility] Administration Ezetimibe 10 mg 10/03/24 09:00 10/21/24 09:15 Ezetimibe 10 Mg Tablet PO 10 mg DAILY TAMIKA Administration Empagliflozin 25 mg 10/03/24 09:00 10/17/24 15:30 Empagliflozin 25 Mg Tablet BY MOUTH Not [facility] [place] Fluticasone Propionate 1 spray 10/11/24 21:00 10/21/24 09:15 Fluticasone Propionate 0.05% Na Spr 16 Gm Btl (*Bkc) NASAL 1 spray Q12HR TAMIKA Administration Glucagon 1 mg 10/02/24 17:35 Glucagon For Inj 1 Mg Vial IM PRN PRN Hypoglycemia Protocol Glucose 15 gm 10/02/24 17:35 10/13/24 17:38 Glucose Oral Gel 15 Gm Of Glucse In 37.5 Gm Tube PO 15 gm PRN PRN Administration Hypoglycemia Protocol Guaifenesin 600 mg 10/15/24 12:30 10/21/24 09:14 Guaifenesin 12 Hr 600 Mg Tabcr PO 10/22/24 12:29 600 mg Q12HR TAMIKA Administration Heparin Sodium (Porcine) 5,000 units 10/14/24 21:00 10/21/24 09:13 Heparin Sodium 5,000 Units/Ml Vial SUB-Q Not Given Q12HR [facility] Hydralazine HCl 25 mg 10/20/24 19:00 10/21/24 09:15 Hydralazine Hcl 25 Mg Tablet PO 25 mg BID TAMIKA Administration Dextrose 1,000 mls @ 100 mls/hr 10/02/24 17:35 Dextrose 5% 1,000 Ml IVPB PRN PRN Hypoglycemia Protocol Albumin Human 50 mls @ 999 mls/hr 10/17/24 16:39 Albutein IVPB 11/16/24 16:38 Q10M PRN HYPOTENSION Insulin Aspart 3 - 6 units 10/03/24 08:00 10/21/24 09:13 Insulin Aspart (*Bkc) 100 Units/Ml SUB-Q Not Given TIDWM [facility] Protocol Insulin Aspart 1 - 3 units 10/02/24 21:00 10/20/24 21:45 Insulin Aspart (*Bkc) 100 Units/Ml SUB-Q Not Given HS [facility] Protocol Insulin Human Regular 25 units 10/03/24 13:00 10/20/24 12:50 Insulin Human Regular (*Bkc) 100 Units/Ml SUB-Q Not Given DAILY@1200 [facility] Insulin Human Regular 25 units 10/16/24 09:35 10/21/24 09:13 Insulin Human Regular (*Bkc) 100 Units/Ml SUB-Q Not Given DAILY@0800 [facility] Isosorbide Mononitrate 90 mg 10/03/24 09:00 10/21/24 09:15 Isosorbide Mononitrate 30 Mg Tab.Er.24h PO 90 mg DAILY [facility] Administration Loperamide HCl 2 mg 10/13/24 13:26 Loperamide Hcl 2 Mg Capsule PO PRN PRN Diarrhea Morphine Sulfate 2 mg 10/17/24 16:31 Morphine Sulfate (*Crx) 2 Mg/Ml Inj IV PUSH Q2H PRN Breakthrough Pain Rated 7-10 Ondansetron HCl 4 mg 10/02/24 17:35 10/18/24 18:40 Ondansetron Inj 4 Mg/2 Ml Vial IV PUSH 4 mg Q6H PRN Administration Nausea And Vomiting Ondansetron HCl 4 mg 10/18/24 18:21 Ondansetron Inj 4 Mg/2 Ml Vial IV PUSH Q6H PRN Nausea And Vomiting Oxycodone/Acetaminophen 1 tablet 10/17/24 16:31 10/18/24 01:50 Oxycodone/Acetaminophen (*Crx) 5-325 Mg Tablet PO 1 tablet Q4H PRN Administration Pain Rated 4-6 Pantoprazole Sodium 40 mg 10/03/24 21:00 10/20/24 21:41 Pantoprazole 40 Mg Tablet PO 40 mg QHS TAMIKA Administration Polyethylene Glycol 17 gm 10/05/24 14:48 Polyethylene Glycol 3350 17 Gm Powd.Pack PO QAM PRN Constipation Propranolol HCl 80 mg 10/03/24 09:00 10/21/24 09:15 Propranolol Hcl 40 Mg Tablet PO 80 mg TID TAMIKA Administration Sertraline HCl 50 mg 10/02/24 23:10 10/21/24 09:14 Sertraline Hcl 50 Mg Tablet BY MOUTH 50 mg DAILY TAMIKA Administration Sodium Chloride 1 spray 10/11/24 16:22 10/12/24 00:02 Saline 0.65% Fabiano Soln 44 Ml Btl NASAL 1 spray Q6HR PRN Administration Congestion Radiology Results: ITS Impressions Foot X-Ray 10/02/24 14:32 IMPRESSION: 1. Nondisplaced fracture of lateral aspect of head of first proximal phalanx. 2. Nondisplaced stellate fracture of tuft of first distal phalanx. 3. Mild polyarticular osteoarthritis. Renal Ultrasound 10/07/24 11:52 IMPRESSION: 1. 3.4 cm mixed solid and cystic lesion at the upper pole the right kidney with 2 cm solid nodular component which is concerning for renal cell carcinoma. Recommend urologic consultation and further evaluation with pre and postcontrast MRI or CT. 2. No hydronephrosis in either kidney. 3. Trabeculated bladder wall which can be seen with neurogenic bladder or chronic outlet obstruction such as in the setting of prostatomegaly. Renal Scan Nuclear Medicine 10/13/24 14:38 IMPRESSION: 1. Symmetric kidney function. 2. Delayed uptake and clearance of activity from the kidneys, consistent with decreased kidney function. Chest X-Ray 10/17/24 16:14 IMPRESSION: Left internal jugular central venous tunneled hemodialysis catheter in position and ready for immediate use Labs Labs: Laboratory Results - last 24 hr 10/20/24 10/20/24 10/21/24 11:56 20:58 06:16 WBC 7.1 RBC 3.18 L Hgb 9.6 L Hct 30.4 L MCV 95.6 MCH 30.2 MCHC 31.6 L RDW 14.2 Plt Count 305 MPV 10.7 H Immature Gran % (Auto) 0.8 H Neut % (Auto) 63.0 Lymph % (Auto) 21.7 [place] % (Auto) 11.1 H Eos % (Auto) 3.1 Baso % (Auto) 0.3 Lymph # (Auto) 1.55 [place] # (Auto) 0.8 H Eos # (Auto) 0.2 Baso # (Auto) 0.0 Abs Immat Gran (auto) 0.06 H Absolute Neuts (auto) 4.5 Absolute Nucleated RBC 0.000 Nucleated RBC % 0.0 PT 14.2 INR 1.1 APTT 45.2 H Sodium 135 L Potassium 4.1 Chloride 101 Carbon Dioxide 24 Anion Gap 10 BUN 34 H D Creatinine 4.43 H Estim Creat Clear Calc 21 Estimated GFR 13 L Glucose 147 H POC Capillary Glucose 129 H 92 Calcium 7.3 L Magnesium 2.1 Total Bilirubin 0.9 AST 45 ALT 15 Alkaline Phosphatase 136 H Total Protein 6.0 L Albumin 2.7 L 10/21/24 08:17 WBC RBC Hgb Hct MCV MCH MCHC RDW Plt Count MPV Immature Gran % (Auto) Neut % (Auto) Lymph % (Auto) [place] % (Auto) Eos % (Auto) Baso % (Auto) Lymph # (Auto) [place] # (Auto) Eos # (Auto) Baso # (Auto) Abs Immat Gran (auto) Absolute Neuts (auto) Absolute Nucleated RBC Nucleated RBC % PT INR APTT Sodium Potassium Chloride Carbon Dioxide Anion Gap BUN Creatinine Estim Creat Clear Calc Estimated GFR Glucose POC Capillary Glucose 150 H Calcium Magnesium Total Bilirubin AST ALT Alkaline Phosphatase Total Protein Albumin Quality VTE Prophylaxis VTE prophylaxis: mechanical ordered and pharmacologic ordered
--- NOTE | 2024-10-21 12:00 | PC.NURSE ---
Patient off floor to US for renal biopsy via wheelchair.
--- NOTE | 2024-10-21 13:18 | PC.NURSE ---
Patient returned to floor following biopsy via wheelchair. No patient complaints at this time.
[2024-10-21 16:00] VITALS: BP 176/83; PULSE 58; RESP 20; TEMP 36.6; O2SAT 98
[2024-10-21 16:32] VITALS: PULSE 62
[2024-10-21 19:58] LABS: Glucose Point of Care 142 mg/dl (65-105)
[2024-10-21 20:00] VITALS: PULSE 63; RESP 16; O2SAT 98
[2024-10-21] MEDS: HEPARIN SODIUM 5,000 UNITS/ML VIAL 5000 UNITS SUB-Q (20:59)
[2024-10-21] MEDS: PANTOPRAZOLE 40 MG TABLET PO (21:00)
[2024-10-21 21:02] LABS: Glucose Point of Care 160 mg/dl (65-105)
[2024-10-21 21:49] VITALS: BP 143/71; PULSE 63; RESP 16; TEMP 36.1; O2SAT 98
[2024-10-22] VITALS (8 sets, daily range): BP systolic 149–185; BP diastolic 69–84; PULSE 54–70; RESP 16–18; TEMP 36.4–37.1; O2SAT 95–98
[2024-10-22 05:51] LABS: Basophils Percent Auto 0.3 % (0.2-1.2); Eosinophils Absolute Auto 0.2 K/mm3 (0-0.3); Eosinophils Percent Auto 3.2 % (0-4.4); Hemoglobin 9.5 g/dL (14.0-18.0); Immature Granulocyte Absolute 0.03 K/mm3 (0.00-0.031); Immature Granulocyte Percent A 0.5 % (0-0.5); Lymphocytes Absolute Auto 1.96 K/mm3 (0.9-3.2); Lymphocytes Percent Auto 29.8 % (18.3-44.2); Mean Corpuscular HGB Conc 31.7 g/dl (32-36); Mean Corpuscular Hemoglobin 30.4 pg (26-34); Mean Corpuscular Volume 95.8 fl (80-100); Mean Platelet Volume 10.4 fl (7.4-10.4); Monocytes Absolute Auto 0.7 K/mm3 (0.1-0.6); Monocytes Percent Auto 11.2 % (2.6-8.5); Neutrophils Absolute Auto 3.6 K/mm3 (1.3-6.7); Platelet Count Result 328 k/mm3 (150-375); Red Blood Count 3.13 M/mm3 (4.6-6.20); Red Cell Distribution Width 14.4 % (11.5-14.5); White Blood Count 6.6 K/mm3 (4.5-10.0)
[2024-10-22 06:06] LABS: Alanine Aminotransferase 15 U/L (6-50); Albumin Level 2.7 g/dL (3.5-5.1); Alkaline Phosphatase 141 U/L (38-126); Anion Gap 11 mmol/L (4-12); Aspartate Amino Transferase 34 U/L (17-59); Blood Urea Nitrogen 39 mg/dL (9-20); Calcium 7.1 mg/dL (8.4-10.2); Carbon Dioxide 23 mmol/L (22-30); Chloride 102 mmol/L (98-107); Estimated CRCL calculation 17 ml/min; Estimated Glomerular Filt Rate 10; Glucose 145 mg/dL (65-110); Magnesium 2.1 mg/dL (1.6-2.3); Potassium 4.1 mmol/L (3.4-5.0); Sodium 136 mmol/L (137-145)
[2024-10-22 07:51] LABS: Glucose Point of Care 146 mg/dl (65-105)
--- NOTE | 2024-10-22 08:46 | P.PNIM_ITS ---
Progress Note: A&P Assessment and Plan (1) Diabetic foot ulcer: Code(s): E11.621 - Type 2 diabetes mellitus with foot ulcer; L97.509 - Non-pressure chronic ulcer of other part of unspecified foot with unspecified severity Status: Acute Assessment and Plan: patient reports injury to right great toe with worsening symptoms patient has severe diabetes and CAD with poor wound healing initial x-ray showed right great toe fractured * CRP elevate no WBC * blood cultures negative * wound culture: staph aureus * Antibiotics: IV cefepime, vancomycin and Flagyl transitioned to doxy and Augmentin per cultures on 10/06 course completed * Will need close glucose control for any type of wound healing patient is a severely uncontrolled diabetic on high-dose insulin * Surgery consulted if debridement or amputation needed s/p Sharp excisional debridement right great toe diabetic foot ulcer measuring 5 cm x 3 cm including skin, subcutaneous fat, and tendon on 10/[address] Aceves s/p Right great toe ray amputation on 10/[address] Aceves WBC WNL. Dressing clean/dry/intact. Will need to follow up with surgery in the outpatient setting. (2) Fracture of right great toe: Code(s): S92.401A - Displaced unspecified fracture of right great toe, initial encounter for closed fracture Status: Acute Assessment and Plan: * Foot XR: Nondisplaced fracture of lateral aspect of head of first proximal phalanx. Nondisplaced stellate fracture of tuft of first distal phalanx. * Pain management * elevate at rest * s/p Right great toe ray amputation on 10/[address] Aceves (3) Chronic kidney disease, stage 3b: Code(s): N18.32 - Chronic kidney disease, stage 3b Status: Acute Assessment and Plan: Acute on chronic renal failure Baseline creatinine has been running 2.3 - 2.7mg/dl in the last few years, Cr 3.32 on admission. Etiology uncertain but considers COVID, DM, HTN, Vascular disease and age. * Creatinine 5.7 today (3.32 on admission). * NM renal scan shows normal symmetric kidney function and delayed uptake and clearance of activity from within the kidneys, consistent with decreased kidney function. * Renal US: A 3.4 cm mixed solid and cystic lesion at the upper pole the right kidney with 2 cm solid nodular component which is concerning for renal cell carcinoma. Recommend urologic consultation and further evaluation with pre and postcontrast MRI or CT. Unable to do further imaging at this time due to renal function. * Renal Bx obtained, path pending * Continue to hold diuretics, but pt is appearing to have some extra fluid on board. * Continue to trend labs. * Minimize renal offending agents. * Renal dialysis diet * follows with Dr. Caprice Gusman for management of his chronic kidney disease * Nephrology is following. s/p Placement left internal jugular tunneled dura flow central venous catheter using ultrasound and under fluoroscopy on 10/[address] Lema for HD started HD on 10/20. Tolerated HD well. (4) Renal mass, right: Code(s): N28.89 - Other specified disorders of kidney and ureter Status: Acute Assessment and Plan: Renal US * A 3.4 cm mixed solid and cystic lesion at the upper pole the right kidney with 2 cm solid nodular component which is concerning for renal cell carcinoma. Recommend urologic consultation and further evaluation with pre and postcontrast MRI or CT. * Unable to do further imaging at this time due to renal function. * Urology and Nephrology following. 10/13/24 per prior provider: * Discussed with Dr. Jacobsen whether or not it is appropriate to inquire about doing a biopsy of the renal mass and whether or not that is contributing to his renal function, but he does not believe that it is contributing. He further notes that if there is concern for possible neoplastic disease, typically the mass is just resected and not biopsied. Renal Bx US done on 10/21: Pathology pending (5) Type 2 diabetes mellitus with diabetic polyneuropathy: Code(s): E11.42 - Type 2 diabetes mellitus with diabetic polyneuropathy Status: Acute Assessment and Plan: - Patient is hard to control diabetic on several diabetic medication, and high- dose insulin - hypoglycemia protocol - POC blood glucose ACHS - Holding semaglutide and jardiance - Continue Zetia - mod dose TIDWM - 25 units regular insulin daily - A1C 7.9 (6) Diastolic dysfunction: Onset Date: 03/2022 Code(s): I51.89 - Other ill-defined heart diseases Status: Chronic Assessment and Plan: * patient does not appear to be in exacerbation * Bumex on hold for CKD (7) Presence of aortocoronary bypass graft: Onset Date: 10/2017 Code(s): Z95.1 - Presence of aortocoronary bypass graft Status: Acute Assessment and Plan: * Continue Inderal, Aspirin, Lipitor, an Imdur, Atorvastatin (8) COVID: Code(s): U07.1 - COVID-19 Status: Acute Assessment and Plan: * Supportive care. * No steroids or other antivirals ordered in setting of no supplemental oxygen required. * PRN nebs ordered. (9) Transaminitis: Code(s): R74.01 - Elevation of levels of liver transaminase levels Status: Acute Assessment and Plan: * New during this admission. * Most likely etiology is having COVID. * Continue to trend. * Pt asympotmatic. Labs continue to downtrend. * If any development of pain, N/V then would consider RUQ US/CT abd pelvis. (10) Hypocalcemia: Code(s): E83.51 - Hypocalcemia Status: Acute Assessment and Plan: * Calcium 7.1, corrected is 8.1 * Monitor level. Plan Time Spent With Patient Time with patient: 25 - 35 minutes Subjective Date/time seen: 10/22/24 08:46 Interval history: 69-year-old male past medical history of CKD stage 3 diastolic dysfunction, diabetes type 2 and CAD presents the hospital with acute toe pain and discoloration. Patient is pleasant lying comfortably in bed. He notes that he is upset in wishes to go home. He has no complaints at this time denying chest pain, shortness a breath, palpitations, nausea/vomiting, and abdominal pain. He denies any pain to his right foot and notes that he has been ambulating well. He underwent dialysis for the 1st time on 10/20 and notes that he tolerated this well. He continues to have elevated kidney levels waiting further Nephrology recommendations. Review of Systems Review of Systems: All systems reviewed & are unremarkable except as noted in HPI and below Exam Narrative: AF HR 59 RR 18 Spo2 98 BP 155/77 General: male in no acute respiratory distress who is nontoxic appearing, lying semi recumbent in bed. HEENT: Normocephalic. Atraumatic. Extraocular movement intact. Sclera clear and anicteric. No facial asymmetry. Chest: Lungs are clear to auscultation bilaterally. No wheezes or crackles. CV: Heart was regular rate and rhythm. S1/S2. No murmurs, gallops, or rubs. Abd: Abdomen was soft. Nontender. Nondistended. Positive bowel sounds. No organomegaly or masses. Ext: No clubbing, cyanosis, or edema. 2+ DP pulses bilaterally. Neuro: Patient is alert and oriented x4. Speech is clear. Objective Data Vital Signs Vital Signs: Vital Signs - 24 hr 10/21/24 09:15 10/21/24 09:15 10/21/24 16:00 Temperature 98 F Pulse Rate 72 58 L Respiratory Rate 20 Blood Pressure 176/83 H Pulse Oximetry 100 98 Oxygen Delivery Room Air Fraction of Inspired Oxygen 10/21/24 16:32 10/21/24 20:00 10/21/24 21:49 Temperature 97.0 F L Pulse Rate 62 63 63 Respiratory Rate 16 16 Blood Pressure 143/71 H Pulse Oximetry 98 98 Oxygen Delivery Room Air Fraction of Inspired Oxygen 0 10/22/24 05:34 10/22/24 07:30 Temperature 97.5 F L 98.8 F Pulse Rate 60 60 Respiratory Rate 16 18 Blood Pressure 163/79 H 185/84 H Pulse Oximetry 98 95 Oxygen Delivery Fraction of Inspired Oxygen Intake/Output Intake/Output: Intake & Output 10/19/24 10/20/24 10/21/24 10/22/24 23:59 23:59 23:59 23:59 Intake Total 1760 1038 1040 200 Output Total 100 1000 Balance 1660 38 1040 200 Meds/Results Medications: Active Medications Generic Name Dose Route Start Last Admin Trade Name Freq PRN Reason Stop Dose Admin Acetaminophen 650 mg 10/02/24 16:55 10/20/24 16:47 Acetaminophen 325 Mg Tablet PO 650 mg Q4H PRN Administration Mild Pain (1-3) or Fever Albuterol 2.5 mg 10/12/24 13:19 Albuterol Sulfate Neb 2.5 Mg/3 Ml Inh INHALATION Q4HRT PRN Shortness Of Breath Aspirin 81 mg 10/03/24 09:00 10/20/24 08:58 Aspirin 81 Mg Enteric Tablet PO 81 mg QAM TAMIKA Administration Atorvastatin Calcium 80 mg 10/03/24 09:00 10/21/24 09:15 Atorvastatin 40 Mg Tablet PO 80 mg DAILY TAMIKA Administration Bumetanide 0.5 mg 10/03/24 09:00 10/08/24 08:32 Bumetanide 0.5 Mg Tablet PO 0.5 mg DAILY TAMIKA Administration Buspirone HCl 10 mg 10/03/24 09:00 10/21/24 16:32 Buspirone Hcl 10 Mg Tablet PO 10 mg BID TAMIKA Administration Calcitriol 0.25 mcg 10/03/24 09:00 10/20/24 08:49 Calcitriol 0.25 Mcg Capsule PO 0.25 mcg [id number] TAMIKA Administration Dextrose 12.5 gm 10/02/24 17:35 10/17/24 15:55 Dextrose 50% 25 Gm/50 Ml Syringe IV PUSH 12.5 gm PRN PRN Administration Hypoglycemia Protocol Docusate Sodium 100 mg 10/03/24 09:00 10/21/24 16:32 Docusate Sodium 100 Mg Capsule PO 100 mg BID TAMIKA Administration Ezetimibe 10 mg 10/03/24 09:00 10/21/24 09:15 Ezetimibe 10 Mg Tablet PO 10 mg DAILY TAMIKA Administration Empagliflozin 25 mg 10/03/24 09:00 10/17/24 15:30 Empagliflozin 25 Mg Tablet BY MOUTH Not Given QAM [facility] Fluticasone Propionate 1 spray 10/11/24 21:00 10/21/24 21:01 Fluticasone Propionate 0.05% Na Spr 16 Gm Btl (*Bkc) NASAL 1 spray Q12HR TAMIKA Administration Glucagon 1 mg 10/02/24 17:35 Glucagon For Inj 1 Mg Vial IM PRN PRN Hypoglycemia Protocol Glucose 15 gm 10/02/24 17:35 10/13/24 17:38 Glucose Oral Gel 15 Gm Of Glucse In 37.5 Gm Tube PO 15 gm PRN PRN Administration Hypoglycemia Protocol Guaifenesin 600 mg 10/15/24 12:30 10/21/24 21:00 Guaifenesin 12 Hr 600 Mg Tabcr PO 10/22/24 12:29 600 mg Q12HR TAMIKA Administration Heparin Sodium (Porcine) 5,000 units 10/14/24 21:00 10/21/24 20:59 Heparin Sodium 5,000 Units/Ml Vial SUB-Q 5,000 units Q12HR TAMIKA Administration Hydralazine HCl 25 mg 10/20/24 19:00 10/21/24 16:32 Hydralazine Hcl 25 Mg Tablet PO 25 mg BID TAMIKA Administration Dextrose 1,000 mls @ 100 mls/hr 10/02/24 17:35 Dextrose 5% 1,000 Ml IVPB PRN PRN Hypoglycemia Protocol Albumin Human 50 mls @ 999 mls/hr 10/17/24 16:39 Albutein IVPB 11/16/24 16:38 Q10M PRN HYPOTENSION Insulin Aspart 3 - 6 units 10/03/24 08:00 10/21/24 16:33 Insulin Aspart (*Bkc) 100 Units/Ml SUB-Q Not Given TIDWM TAMIKA Protocol Insulin Aspart 1 - 3 units 10/02/24 21:00 10/21/24 21:00 Insulin Aspart (*Bkc) 100 Units/Ml SUB-Q Not Given HS [facility] Protocol Insulin Human Regular 25 units 10/16/24 09:35 10/21/24 09:13 Insulin Human Regular (*Bkc) 100 Units/Ml SUB-Q Not Given DAILY@0800 [facility] Isosorbide Mononitrate 90 mg 10/03/24 09:00 10/21/24 09:15 Isosorbide Mononitrate 30 Mg Tab.Er.24h PO 90 mg DAILY TAMIKA Administration Loperamide HCl 2 mg 10/13/24 13:26 Loperamide Hcl 2 Mg Capsule PO PRN PRN Diarrhea Morphine Sulfate 2 mg 10/17/24 16:31 Morphine Sulfate (*Crx) 2 Mg/Ml Inj IV PUSH Q2H PRN Breakthrough Pain Rated 7-10 Ondansetron HCl 4 mg 10/02/24 17:35 10/18/24 18:40 Ondansetron Inj 4 Mg/2 Ml Vial IV PUSH 4 mg Q6H PRN Administration Nausea And Vomiting Ondansetron HCl 4 mg 10/18/24 18:21 Ondansetron Inj 4 Mg/2 Ml Vial IV PUSH Q6H PRN Nausea And Vomiting Oxycodone/Acetaminophen 1 tablet 10/17/24 16:31 10/18/24 01:50 Oxycodone/Acetaminophen (*Crx) 5-325 Mg Tablet PO 1 tablet Q4H PRN Administration Pain Rated 4-6 Pantoprazole Sodium 40 mg 10/03/24 21:00 10/21/24 21:00 Pantoprazole 40 Mg Tablet PO 40 mg QHS TAMIKA Administration Polyethylene Glycol 17 gm 10/05/24 14:48 Polyethylene Glycol 3350 17 Gm Powd.Pack PO QAM PRN Constipation Propranolol HCl 80 mg 10/03/24 09:00 10/21/24 16:32 Propranolol Hcl 40 Mg Tablet PO 80 mg TID TAMIKA Administration Sertraline HCl 50 mg 10/02/24 23:10 10/21/24 09:14 Sertraline Hcl 50 Mg Tablet BY MOUTH 50 mg DAILY TAMIKA Administration Sodium Chloride 1 spray 10/11/24 16:22 10/12/24 00:02 Saline 0.65% Fabiano Soln 44 Ml Btl NASAL 1 spray Q6HR PRN Administration Congestion Radiology Results: ITS Impressions Foot X-Ray 10/02/24 14:32 IMPRESSION: 1. Nondisplaced fracture of lateral aspect of head of first proximal phalanx. 2. Nondisplaced stellate fracture of tuft of first distal phalanx. 3. Mild polyarticular osteoarthritis. Renal Ultrasound 10/07/24 11:52 IMPRESSION: 1. 3.4 cm mixed solid and cystic lesion at the upper pole the right kidney with 2 cm solid nodular component which is concerning for renal cell carcinoma. Recommend urologic consultation and further evaluation with pre and postcontrast MRI or CT. 2. No hydronephrosis in either kidney. 3. Trabeculated bladder wall which can be seen with neurogenic bladder or chronic outlet obstruction such as in the setting of prostatomegaly. Renal Scan Nuclear Medicine 10/13/24 14:38 IMPRESSION: 1. Symmetric kidney function. 2. Delayed uptake and clearance of activity from the kidneys, consistent with decreased kidney function. Chest X-Ray 10/17/24 16:14 IMPRESSION: Left internal jugular central venous tunneled hemodialysis catheter in position and ready for immediate use Renal Biopsy Ultrasound 10/21/24 13:16 IMPRESSION: 1. Ultrasound-guided random left kidney core needle biopsy. Labs Labs: Laboratory Results - last 24 hr 10/21/24 10/21/24 10/22/24 16:33 19:46 05:15 WBC 6.6 RBC 3.13 L Hgb 9.5 L Hct 30.0 L MCV 95.8 MCH 30.4 MCHC 31.7 L RDW 14.4 Plt Count 328 MPV 10.4 Immature Gran % (Auto) 0.5 Neut % (Auto) 55.0 Lymph % (Auto) 29.8 [place] % (Auto) 11.2 H Eos % (Auto) 3.2 Baso % (Auto) 0.3 Lymph # (Auto) 1.96 [place] # (Auto) 0.7 H Eos # (Auto) 0.2 Baso # (Auto) 0.0 Abs Immat Gran (auto) 0.03 Absolute Neuts (auto) 3.6 Absolute Nucleated RBC 0.000 Nucleated RBC % 0.0 Sodium 136 L Potassium 4.1 Chloride 102 Carbon Dioxide 23 Anion Gap 11 BUN 39 H Creatinine 5.70 H Estim Creat Clear Calc 17 Estimated GFR 10 L Glucose 145 H POC Capillary Glucose 142 H 160 H Calcium 7.1 L Magnesium 2.1 Total Bilirubin 1.0 AST 34 ALT 15 Alkaline Phosphatase 141 H Total Protein 6.0 L Albumin 2.7 L 10/22/24 07:28 WBC RBC Hgb Hct MCV MCH MCHC RDW Plt Count MPV Immature Gran % (Auto) Neut % (Auto) Lymph % (Auto) [place] % (Auto) Eos % (Auto) Baso % (Auto) Lymph # (Auto) [place] # (Auto) Eos # (Auto) Baso # (Auto) Abs Immat Gran (auto) Absolute Neuts (auto) Absolute Nucleated RBC Nucleated RBC % Sodium Potassium Chloride Carbon Dioxide Anion Gap BUN Creatinine Estim Creat Clear Calc Estimated GFR Glucose POC Capillary Glucose 146 H Calcium Magnesium Total Bilirubin AST ALT Alkaline Phosphatase Total Protein Albumin
[2024-10-22] MEDS: busPIRone HCL 10 MG TABLET PO ×2 (09:02→17:40)
[2024-10-22] MEDS: SERTRALINE HCL 50 MG TABLET BY MOUTH (09:02)
[2024-10-22] MEDS: DOCUSATE SODIUM 100 MG CAPSULE PO ×2 (09:02→17:40)
[2024-10-22] MEDS: PROPRANOLOL HCL 40 MG TABLET 80 MG PO ×3 (09:02→17:40)
[2024-10-22] MEDS: HEPARIN SODIUM 5,000 UNITS/ML VIAL 5000 UNITS SUB-Q ×2 (09:02→20:46)
[2024-10-22] MEDS: EZETIMIBE 10 MG TABLET PO (09:03)
[2024-10-22] MEDS: hydrALAZINE HCL 25 MG TABLET PO ×2 (09:03→17:40)
[2024-10-22] MEDS: guaiFENesin 12 HR 600 MG TABCR PO (09:03)
[2024-10-22] MEDS: ISOSORBIDE MONONITRATE 30 MG TAB.ER.24H 90 MG PO (09:03)
[2024-10-22] MEDS: ATORVASTATIN 40 MG TABLET 80 MG PO (09:03)
[2024-10-22] MEDS: FLUTICASONE PROPIONATE 0.05% NA SPR 16 GM BTL (*BKC) 1 SPRAY NASAL ×2 (09:04→20:47)
[2024-10-22] MEDS: calcitrioL 0.25 MCG CAPSULE PO (09:06)
[2024-10-22 11:47] LABS: Glucose Point of Care 160 mg/dl (65-105)
--- NOTE | 2024-10-22 13:45 | P.PNNP_ITS ---
Progress Note: A&P Assessment and Plan (1) JUAN CARLOS (acute kidney injury): Code(s): N17.9 - Acute kidney failure, unspecified Status: Acute Assessment and Plan: * as noted on admission - creatinine of 3.32mg/dl * came down to 2.9mg/dl transiently * presumed etiology likely secondary to acute infection - right great toe diabetic foot ulcer + cellulitis * however, cannot discount an element of CKD progression * evaluation to date noted: * renal u/s without hydro but concerning for renal mass * urine electrolytes pre-renal * urine eosinophils noted * UA (from 10/07) suggestive of infection -- culture Annie (but low CFU) * proteinuria noted * CPK normal * renal scan suggestive of ATN * RENAL BIOPSY (preliminary results): * significant changes consistent with diabetic glomerulosclerosis * 80% tubular atrophy/interstitial fibrosis * findings also suggest post-infectious glomerulonephritis * given renal biopsy results, I suspect he has progressed to end stage renal disease.. * HD day before yesterday -- plan next treatment tomorrow * will need outpatient dialysis on discharge (2) Chronic kidney disease, stage IV (severe): Code(s): N18.4 - Chronic kidney disease, stage 4 (severe) Status: Chronic Assessment and Plan: * baseline creatinine has been running 2.3 - 2.7mg/dl in the last few years * however, last creatinine up to 2.86mg/dl in July 2024 * due to diabetes, hypertension, vascular disease, (CAD + CHF + hyperlipidemia + PVD), and age * follows with Dr. Caprice Gusman for managment of his chronic kidney disease (3) Diabetic foot ulcer: Code(s): E11.621 - Type 2 diabetes mellitus with foot ulcer; L97.509 - Non-pressure chronic ulcer of other part of unspecified foot with unspecified severity Status: Acute Assessment and Plan: * as noted on admission * poor wound healing noted since injury * X-ray with right great toe fracture * complicated by cellulitis of right great toe * s/p right great toe amputation by Surgery (on 10/06) * culture data noted * blood cultures negative * would culture with Staph aureus * on antibiotics * local wound care (4) COVID: Code(s): U07.1 - COVID-19 Status: Acute Assessment and Plan: * as noted by recent testing * no evidence of hypoxia. no fever. * possibly playing a role with #1(?) * continue supportive care (5) Diastolic dysfunction: Onset Date: 03/2022 Code(s): I51.89 - Other ill-defined heart diseases Status: Chronic Assessment and Plan: * appears compensated at this time * home diuretic therapy on hold due to #1 * urine output not being recorded * monitor volume and respiratory status (6) Anemia: Code(s): D64.9 - Anemia, unspecified Status: Chronic Assessment and Plan: * presumably related to CKD from some contributions from JUAN CARLOS, acute infection, and recent operative procedure * Epogen with HD * follow trend of H/H (7) Urinary tract infection: Code(s): N39.0 - Urinary tract infection, site not specified Status: Acute Assessment and Plan: * recent UA (10/07) suggestive * urine culture x 2 with low CFU Annie (8) Hypertension: Code(s): I10 - Essential (primary) hypertension Status: Chronic Assessment and Plan: * reasonable control * will change hydralazine to lisinoril * follow trend of hemodynamics (9) Renal mass, right: Code(s): N28.89 - Other specified disorders of kidney and ureter Status: Acute Assessment and Plan: * as noted on renal ultrasound * Urology recommendations noted * will order MRI of abdomen (10) Type 2 diabetes mellitus with diabetic polyneuropathy: Code(s): E11.42 - Type 2 diabetes mellitus with diabetic polyneuropathy Status: Acute Assessment and Plan: * follow accu-checks * brittle control noted - last HgbA1c noted * glycemic control per hospitalist Long and extensive discussion (> 20 minutes) with patient regarding the results of kidney biopsy; it would seem he already had significant scarring/fibrosis from his diabetes and the recent diabetic foot infection likely worsened his underlying kidney disease (i.e. post-infectious GN); given the severity of his interstitial fibrosis and the trend of his labs over the last week, I suspect he has progressed to end stage renal disease status and will likely need to continues [facility]/dialysis here and on discharge indefinitely. Will continue to follow. L Subjective Date/time seen: 10/22/24 13:45 Interval history: Follow-up for acute kidney injury/acute renal failure on chronic kidney disease. S/P ultrasound guided renal biopsy yesterday and tolerated this intervention reasonably well; no other acute issues or concerns voiced at this time; no other events overnight or earlier this morning; feels okay but is getting tired of being in the hospital. Exam 2 Narrative: General: elderly WD/WN male in NAD Heart: normal S1 and S2; no rub Lungs: clear anteriorly Abdomen: soft, nontender, nondistended, positive bowel sounds Extremities: no cyanosis or clubbing; trace edema Skin: dressings over right foot apparent Objective Data Vital Signs Vital Signs: Vital Signs Temp Pulse Resp BP Pulse Ox O2 Del Method FiO2 10/22/24 14:00 98.3 F 59 L 18 155/77 H 98 10/22/24 12:53 64 10/22/24 09:02 60 10/22/24 08:00 95 Room Air 10/22/24 07:30 98.8 F 60 18 185/84 H 95 10/22/24 05:34 97.5 F L 60 16 163/79 H 98 10/21/24 21:49 97.0 F L 63 16 143/71 H 98 10/21/24 20:00 63 16 98 Room Air 0 Intake/Output Intake/Output: Intake & Output 10/19/24 10/20/24 10/21/24 10/22/24 23:59 23:59 23:59 23:59 Intake Total 1760 1038 1040 680 Output Total 100 1000 Balance 1660 38 1040 680 Meds/Results Medications: Active Medications Generic Name Dose Route Start Last Admin Trade Name Freq PRN Reason Stop Dose Admin Acetaminophen 650 mg 10/02/24 16:55 10/20/24 16:47 Acetaminophen 325 Mg Tablet PO 650 mg Q4H PRN Administration Mild Pain (1-3) or Fever Albuterol 2.5 mg 10/12/24 13:19 Albuterol Sulfate Neb 2.5 Mg/3 Ml Inh INHALATION Q4HRT PRN Shortness Of Breath Aspirin 81 mg 10/03/24 09:00 10/20/24 08:58 Aspirin 81 Mg Enteric Tablet PO 81 mg QAM TAMIKA Administration Atorvastatin Calcium 80 mg 10/03/24 09:00 10/22/24 09:03 Atorvastatin 40 Mg Tablet PO 80 mg DAILY TAMIKA Administration Bumetanide 0.5 mg 10/03/24 09:00 10/08/24 08:32 Bumetanide 0.5 Mg Tablet PO 0.5 mg DAILY TAMIKA Administration Buspirone HCl 10 mg 10/03/24 09:00 10/22/24 09:02 Buspirone Hcl 10 Mg Tablet PO 10 mg BID TAMIKA Administration Calcitriol 0.25 mcg 10/03/24 09:00 10/22/24 09:06 Calcitriol 0.25 Mcg Capsule PO 0.25 mcg [id number] TAMIKA Administration Dextrose 12.5 gm 10/02/24 17:35 10/17/24 15:55 Dextrose 50% 25 Gm/50 Ml Syringe IV PUSH 12.5 gm PRN PRN Administration Hypoglycemia Protocol Docusate Sodium 100 mg 10/03/24 09:00 10/22/24 09:02 Docusate Sodium 100 Mg Capsule PO 100 mg BID TAMIKA Administration Ezetimibe 10 mg 10/03/24 09:00 10/22/24 09:03 Ezetimibe 10 Mg Tablet PO 10 mg DAILY TAMIKA Administration Empagliflozin 25 mg 10/03/24 09:00 10/17/24 15:30 Empagliflozin 25 Mg Tablet BY MOUTH Not Given QAM [facility] Fluticasone Propionate 1 spray 10/11/24 21:00 10/22/24 09:04 Fluticasone Propionate 0.05% Na Spr 16 Gm Btl (*Bkc) NASAL 1 spray Q12HR TAMIKA Administration Glucagon 1 mg 10/02/24 17:35 Glucagon For Inj 1 Mg Vial IM PRN PRN Hypoglycemia Protocol Glucose 15 gm 10/02/24 17:35 10/13/24 17:38 Glucose Oral Gel 15 Gm Of Glucse In 37.5 Gm Tube PO 15 gm PRN PRN Administration Hypoglycemia Protocol Heparin Sodium (Porcine) 5,000 units 10/14/24 21:00 10/22/24 09:02 Heparin Sodium 5,000 Units/Ml Vial SUB-Q 5,000 units Q12HR TAMIKA Administration Hydralazine HCl 25 mg 10/20/24 19:00 10/22/24 09:03 Hydralazine Hcl 25 Mg Tablet PO 25 mg BID TAMIKA Administration Dextrose 1,000 mls @ 100 mls/hr 10/02/24 17:35 Dextrose 5% 1,000 Ml IVPB PRN PRN Hypoglycemia Protocol Albumin Human 50 mls @ 999 mls/hr 10/17/24 16:39 Albutein IVPB 11/16/24 16:38 Q10M PRN HYPOTENSION Insulin Aspart 3 - 6 units 10/03/24 08:00 10/22/24 17:08 Insulin Aspart (*Bkc) 100 Units/Ml SUB-Q Not Given TIDWM [facility] Protocol Insulin Aspart 1 - 3 units 10/02/24 21:00 10/21/24 21:00 Insulin Aspart (*Bkc) 100 Units/Ml SUB-Q Not Given HS [facility] Protocol Insulin Human Regular 25 units 10/16/24 09:35 10/22/24 09:01 Insulin Human Regular (*Bkc) 100 Units/Ml SUB-Q Not Given DAILY@0800 [facility] Isosorbide Mononitrate 90 mg 10/03/24 09:00 10/22/24 09:03 Isosorbide Mononitrate 30 Mg Tab.Er.24h PO 90 mg DAILY [facility] Administration Loperamide HCl 2 mg 10/13/24 13:26 Loperamide Hcl 2 Mg Capsule PO PRN PRN Diarrhea Morphine Sulfate 2 mg 10/17/24 16:31 Morphine Sulfate (*Crx) 2 Mg/Ml Inj IV PUSH Q2H PRN Breakthrough Pain Rated 7-10 Ondansetron HCl 4 mg 10/02/24 17:35 10/18/24 18:40 Ondansetron Inj 4 Mg/2 Ml Vial IV PUSH 4 mg Q6H PRN Administration Nausea And Vomiting Ondansetron HCl 4 mg 10/18/24 18:21 Ondansetron Inj 4 Mg/2 Ml Vial IV PUSH Q6H PRN Nausea And Vomiting Oxycodone/Acetaminophen 1 tablet 10/17/24 16:31 10/18/24 01:50 Oxycodone/Acetaminophen (*Crx) 5-325 Mg Tablet PO 1 tablet Q4H PRN Administration Pain Rated 4-6 Pantoprazole Sodium 40 mg 10/03/24 21:00 10/21/24 21:00 Pantoprazole 40 Mg Tablet PO 40 mg QHS TAMIKA Administration Polyethylene Glycol 17 gm 10/05/24 14:48 Polyethylene Glycol 3350 17 Gm Powd.Pack PO QAM PRN Constipation Propranolol HCl 80 mg 10/03/24 09:00 10/22/24 12:53 Propranolol Hcl 40 Mg Tablet PO 80 mg TID TAMIKA Administration Sertraline HCl 50 mg 10/02/24 23:10 10/22/24 09:02 Sertraline Hcl 50 Mg Tablet BY MOUTH 50 mg DAILY TAMIKA Administration Sodium Chloride 1 spray 10/11/24 16:22 10/12/24 00:02 Saline 0.65% Fabiano Soln 44 Ml Btl NASAL 1 spray Q6HR PRN Administration Congestion Radiology Results: ITS Impressions Foot X-Ray 10/02/24 14:32 IMPRESSION: 1. Nondisplaced fracture of lateral aspect of head of first proximal phalanx. 2. Nondisplaced stellate fracture of tuft of first distal phalanx. 3. Mild polyarticular osteoarthritis. Renal Ultrasound 10/07/24 11:52 IMPRESSION: 1. 3.4 cm mixed solid and cystic lesion at the upper pole the right kidney with 2 cm solid nodular component which is concerning for renal cell carcinoma. Recommend urologic consultation and further evaluation with pre and postcontrast MRI or CT. 2. No hydronephrosis in either kidney. 3. Trabeculated bladder wall which can be seen with neurogenic bladder or chronic outlet obstruction such as in the setting of prostatomegaly. Renal Scan Nuclear Medicine 10/13/24 14:38 IMPRESSION: 1. Symmetric kidney function. 2. Delayed uptake and clearance of activity from the kidneys, consistent with decreased kidney function. Chest X-Ray 10/17/24 16:14 IMPRESSION: Left internal jugular central venous tunneled hemodialysis catheter in position and ready for immediate use Renal Biopsy Ultrasound 10/21/24 13:16 IMPRESSION: 1. Ultrasound-guided random left kidney core needle biopsy. Labs Labs: Laboratory Tests 10/22/24 05:15 10/22/24 05:15 Calcium 7.1 L Magnesium 2.1 Total Bilirubin 1.0 AST 34 ALT 15 Alkaline Phosphatase 141 H Total Protein 6.0 L Albumin 2.7 L
[2024-10-22 17:10] LABS: Glucose Point of Care 144 mg/dl (65-105)
[2024-10-22] MEDS: lisinopriL 10 MG TABLET PO (18:54)
[2024-10-22] MEDS: PANTOPRAZOLE 40 MG TABLET PO (20:46)
[2024-10-22 20:50] LABS: Glucose Point of Care 128 mg/dl (65-105)
[2024-10-23] VITALS (23 sets, daily range): BP systolic 129–197; BP diastolic 52–103; PULSE 56–69; RESP 16–20; TEMP 36.1–37; O2SAT 97–99
--- NOTE | 2024-10-23 05:05 | PC.NURSE ---
Blood return noted after 120min of activase. 5cc blood wasted. Followed by 10cc NS flush.
[2024-10-23 07:16] LABS: Basophils Percent Auto 0.4 % (0.2-1.2); Eosinophils Absolute Auto 0.3 K/mm3 (0-0.3); Eosinophils Percent Auto 4.2 % (0-4.4); Hematocrit 30.5 % (42.0-52.0); Hemoglobin 9.7 g/dL (14.0-18.0); Immature Granulocyte Absolute 0.04 K/mm3 (0.00-0.031); Immature Granulocyte Percent A 0.6 % (0-0.5); Lymphocytes Absolute Auto 1.92 K/mm3 (0.9-3.2); Lymphocytes Percent Auto 27.2 % (18.3-44.2); Mean Corpuscular HGB Conc 31.8 g/dl (32-36); Mean Corpuscular Hemoglobin 30.4 pg (26-34); Mean Corpuscular Volume 95.6 fl (80-100); Mean Platelet Volume 10.3 fl (7.4-10.4); Monocytes Absolute Auto 0.8 K/mm3 (0.1-0.6); Monocytes Percent Auto 11.7 % (2.6-8.5); Neutrophils Percent Auto 55.9 % (45.5-73.1); Platelet Count Result 337 k/mm3 (150-375); Red Blood Count 3.19 M/mm3 (4.6-6.20); Red Cell Distribution Width 14.6 % (11.5-14.5); White Blood Count 7.1 K/mm3 (4.5-10.0)
[2024-10-23 07:27] LABS: Alanine Aminotransferase 12 U/L (6-50); Albumin Level 2.5 g/dL (3.5-5.1); Alkaline Phosphatase 133 U/L (38-126); Anion Gap 10 mmol/L (4-12); Aspartate Amino Transferase 27 U/L (17-59); Bilirubin,Total 1.1 mg/dL (0.2-1.3); Blood Urea Nitrogen 42 mg/dL (9-20); Calcium 6.9 mg/dL (8.4-10.2); Carbon Dioxide 24 mmol/L (22-30); Chloride 103 mmol/L (98-107); Estimated CRCL calculation 14 ml/min; Estimated Glomerular Filt Rate 8; Glucose 144 mg/dL (65-110); Magnesium 2.2 mg/dL (1.6-2.3); Potassium 3.9 mmol/L (3.4-5.0); Sodium 137 mmol/L (137-145)
[2024-10-23 07:49] LABS: Glucose Point of Care 136 mg/dl (65-105)
--- NOTE | 2024-10-23 08:31 | P.PNIM_ITS ---
Progress Note: A&P Assessment and Plan (1) Diabetic foot ulcer: Code(s): E11.621 - Type 2 diabetes mellitus with foot ulcer; L97.509 - Non-pressure chronic ulcer of other part of unspecified foot with unspecified severity Status: Acute Assessment and Plan: patient reports injury to right great toe with worsening symptoms patient has severe diabetes and CAD with poor wound healing initial x-ray showed right great toe fractured * CRP elevate no WBC * blood cultures negative * wound culture: staph aureus * Antibiotics: IV cefepime, vancomycin and Flagyl transitioned to doxy and Augmentin per cultures on 10/06 course completed * Will need close glucose control for any type of wound healing patient is a severely uncontrolled diabetic on high-dose insulin * Surgery consulted if debridement or amputation needed s/p Sharp excisional debridement right great toe diabetic foot ulcer measuring 5 cm x 3 cm including skin, subcutaneous fat, and tendon on 10/[address] Aceves s/p Right great toe ray amputation on 10/[address] Aceves WBC WNL. Dressing clean/dry/intact. Will need to follow up with surgery in the outpatient setting. (2) Fracture of right great toe: Code(s): S92.401A - Displaced unspecified fracture of right great toe, initial encounter for closed fracture Status: Acute Assessment and Plan: * Foot XR: Nondisplaced fracture of lateral aspect of head of first proximal phalanx. Nondisplaced stellate fracture of tuft of first distal phalanx. * Pain management * elevate at rest * s/p Right great toe ray amputation on 10/[address] Aceves (3) Chronic kidney disease, stage 3b: Code(s): N18.32 - Chronic kidney disease, stage 3b Status: Acute Assessment and Plan: Acute on chronic renal failure Baseline creatinine has been running 2.3 - 2.7mg/dl in the last few years, Cr 3.32 on admission. Etiology uncertain but considers COVID, DM, HTN, Vascular disease and age. * NM renal scan shows normal symmetric kidney function and delayed uptake and clearance of activity from within the kidneys, consistent with decreased kidney function. * Renal US: A 3.4 cm mixed solid and cystic lesion at the upper pole the right kidney with 2 cm solid nodular component which is concerning for renal cell carcinoma. Recommend urologic consultation and further evaluation with pre and postcontrast MRI or CT. Unable to do further imaging at this time due to renal function. * Renal Bx obtained, results per nephrology: significant changes consistent with diabetic glomerulosclerosis, 80% tubular atrophy/interstitial fibrosis, findings also suggest post-infectious glomerulonephritis * Continue to hold diuretics * Minimize renal offending agents. * Renal dialysis diet * follows with Dr. Caprice Gusman for management of his chronic kidney disease * Nephrology is following. s/p Placement left internal jugular tunneled dura flow central venous catheter using ultrasound and under fluoroscopy on 10/[address] Lema for HD Started HD on 10/20. Tolerated HD well. Per care coordination HD has not been able to be set up in the outpatient setting yet. (4) Hypertension: Code(s): I10 - Essential (primary) hypertension Status: Chronic Assessment and Plan: Patient continues to have poorly controlled hypertension likely secondary to ESRD. Started on lisinopril 10 mg daily which was increased today to 20 mg daily after further discussion with Dr. Jacobsen Continue to monitor (5) Renal mass, right: Code(s): N28.89 - Other specified disorders of kidney and ureter Status: Acute Assessment and Plan: Renal US * A 3.4 cm mixed solid and cystic lesion at the upper pole the right kidney with 2 cm solid nodular component which is concerning for renal cell carcinoma. Recommend urologic consultation and further evaluation with pre and postcontrast MRI or CT. * Unable to do further imaging at this time due to renal function. * Urology and Nephrology following. 10/13/24 per prior provider: * Discussed with Dr. Jacobsen whether or not it is appropriate to inquire about doing a biopsy of the renal mass and whether or not that is contributing to his renal function, but he does not believe that it is contributing. He further notes that if there is concern for possible neoplastic disease, typically the mass is just resected and not biopsied. Renal Bx US done on 10/21: Results per nephrology: significant changes consistent with diabetic glomerulosclerosis, 80% tubular atrophy/interstitial fibrosis, findings also suggest post-infectious glomerulonephritis Abdomen MRI: Benign cysts in the kidneys. (6) Type 2 diabetes mellitus with diabetic polyneuropathy: Code(s): E11.42 - Type 2 diabetes mellitus with diabetic polyneuropathy Status: Acute Assessment and Plan: - hypoglycemia protocol - POC blood glucose ACHS - Holding semaglutide and jardiance - Continue Zetia - mod dose TIDWM - 25 units regular insulin daily - blood glucose levels remain stable - A1C 7.9 (7) Diastolic dysfunction: Onset Date: 03/2022 Code(s): I51.89 - Other ill-defined heart diseases Status: Chronic Assessment and Plan: * patient does not appear to be in exacerbation * Bumex on hold for CKD (8) Presence of aortocoronary bypass graft: Onset Date: 10/2017 Code(s): Z95.1 - Presence of aortocoronary bypass graft Status: Acute Assessment and Plan: * Continue Inderal, Aspirin, Lipitor, an Imdur, Atorvastatin (9) COVID: Code(s): U07.1 - COVID-19 Status: Acute Assessment and Plan: * Supportive care. * No steroids or other antivirals ordered in setting of no supplemental oxygen required. * PRN nebs ordered. (10) Transaminitis: Code(s): R74.01 - Elevation of levels of liver transaminase levels Status: Acute Assessment and Plan: * New during this admission. * Most likely etiology is having COVID. * Pt asympotmatic. Labs continue to downtrend. * If any development of pain, N/V then would consider RUQ US/CT abd pelvis. (11) Hypocalcemia: Code(s): E83.51 - Hypocalcemia Status: Acute Assessment and Plan: * Calcium 6.9 * Monitor level. Plan Time Spent With Patient Time with patient: 25 - 35 minutes Subjective Date/time seen: 10/23/24 08:31 Interval history: 69-year-old male past medical history of CKD stage 3 diastolic dysfunction, diabetes type 2 and CAD presents the hospital with acute toe pain and discoloration. Patient is pleasant lying in bed receiving dialysis at time of assessment. He continues to tolerate dialysis well. He has no complaints at this time denying chest pain, shortness of breath, palpitations, nausea/vomiting and abdominal pain. He continues to have severe hypertension, discussed with Dr. Jacobsen and his lisinopril dose was increased to 20 mg daily. Review of Systems Review of Systems: All systems reviewed & are unremarkable except as noted in HPI and below Exam Narrative: AF HR 59 RR 18 SpO2 97 BP 172/88 General: male in no acute respiratory distress who is nontoxic appearing, lying semi recumbent in bed. HEENT: Normocephalic. Atraumatic. Extraocular movement intact. Sclera clear and anicteric. No facial asymmetry. Chest: Lungs are clear to auscultation bilaterally. No wheezes or crackles. CV: Heart was regular rate and rhythm. S1/S2. No murmurs, gallops, or rubs. Abd: Abdomen was soft. Nontender. Nondistended. Positive bowel sounds. Ext: Dressing is clean/dry/intact. Neuro: Patient is alert and oriented x4. Speech is clear. Objective Data Vital Signs Vital Signs: Vital Signs - 24 hr 10/22/24 09:02 10/22/24 12:53 10/22/24 14:00 Temperature 98.3 F Pulse Rate 60 64 59 L Respiratory Rate 18 Blood Pressure 155/77 H Pulse Oximetry 98 10/22/24 17:40 10/22/24 20:56 10/23/24 05:21 Temperature 97.8 F Pulse Rate 70 54 L Respiratory Rate 16 Blood Pressure 149/69 H 180/88 H Pulse Oximetry 98 10/23/24 05:22 Temperature 97.5 F L Pulse Rate 57 L Respiratory Rate 16 Blood Pressure 172/75 H Pulse Oximetry 97 Intake/Output Intake/Output: Intake & Output 10/20/24 10/21/24 10/22/24 10/23/24 23:59 23:59 23:59 23:59 Intake Total 1038 1040 1920 200 Output Total 1000 Balance 38 1040 1920 200 Meds/Results Medications: Active Medications Generic Name Dose Route Start Last Admin Trade Name Freq PRN Reason Stop Dose Admin Acetaminophen 650 mg 10/02/24 16:55 10/20/24 16:47 Acetaminophen 325 Mg Tablet PO 650 mg Q4H PRN Administration Mild Pain (1-3) or Fever Albuterol 2.5 mg 10/12/24 13:19 Albuterol Sulfate Neb 2.5 Mg/3 Ml Inh INHALATION Q4HRT PRN Shortness Of Breath Aspirin 81 mg 10/03/24 09:00 10/20/24 08:58 Aspirin 81 Mg Enteric Tablet PO 81 mg QAM TAMIKA Administration Atorvastatin Calcium 80 mg 10/03/24 09:00 10/22/24 09:03 Atorvastatin 40 Mg Tablet PO 80 mg DAILY TAMIKA Administration Bumetanide 0.5 mg 10/03/24 09:00 10/08/24 08:32 Bumetanide 0.5 Mg Tablet PO 0.5 mg DAILY TAMIKA Administration Buspirone HCl 10 mg 10/03/24 09:00 10/22/24 17:40 Buspirone Hcl 10 Mg Tablet PO 10 mg BID TAMIKA Administration Calcitriol 0.25 mcg 10/03/24 09:00 10/22/24 09:06 Calcitriol 0.25 Mcg Capsule PO 0.25 mcg [id number] TAMIKA Administration Dextrose 12.5 gm 10/02/24 17:35 10/17/24 15:55 Dextrose 50% 25 Gm/50 Ml Syringe IV PUSH 12.5 gm PRN PRN Administration Hypoglycemia Protocol Docusate Sodium 100 mg 10/03/24 09:00 10/22/24 17:40 Docusate Sodium 100 Mg Capsule PO 100 mg BID TAMIKA Administration Ezetimibe 10 mg 10/03/24 09:00 10/22/24 09:03 Ezetimibe 10 Mg Tablet PO 10 mg DAILY TAMIKA Administration Empagliflozin 25 mg 10/03/24 09:00 10/17/24 15:30 Empagliflozin 25 Mg Tablet BY MOUTH Not Given QAM [facility] Epoetin Marco-epbx 10,000 units 10/23/24 18:11 Epoetin Marco-Epbx 10,000 Units/Ml Vial IV PUSH 10/23/24 18:12 ONCE ONE Fluticasone Propionate 1 spray 10/11/24 21:00 10/22/24 20:47 Fluticasone Propionate 0.05% Na Spr 16 Gm Btl (*Bkc) NASAL 1 spray Q12HR TAMIKA Administration Glucagon 1 mg 10/02/24 17:35 Glucagon For Inj 1 Mg Vial IM PRN PRN Hypoglycemia Protocol Glucose 15 gm 10/02/24 17:35 10/13/24 17:38 Glucose Oral Gel 15 Gm Of Glucse In 37.5 Gm Tube PO 15 gm PRN PRN Administration Hypoglycemia Protocol Heparin Sodium (Porcine) 5,000 units 10/14/24 21:00 10/22/24 20:46 Heparin Sodium 5,000 Units/Ml Vial SUB-Q 5,000 units Q12HR TAMIKA Administration Dextrose 1,000 mls @ 100 mls/hr 10/02/24 17:35 Dextrose 5% 1,000 Ml IVPB PRN PRN Hypoglycemia Protocol Albumin Human 50 mls @ 999 mls/hr 10/17/24 16:39 Albutein IVPB 11/16/24 16:38 Q10M PRN HYPOTENSION Insulin Aspart 3 - 6 units 10/03/24 08:00 10/22/24 17:08 Insulin Aspart (*Bkc) 100 Units/Ml SUB-Q Not Given TIDWM [facility] Protocol Insulin Aspart 1 - 3 units 10/02/24 21:00 10/22/24 20:51 Insulin Aspart (*Bkc) 100 Units/Ml SUB-Q Not Given HS [facility] Protocol Insulin Human Regular 25 units 10/16/24 09:35 10/22/24 09:01 Insulin Human Regular (*Bkc) 100 Units/Ml SUB-Q Not Given DAILY@0800 [facility] Isosorbide Mononitrate 90 mg 10/03/24 09:00 10/22/24 09:03 Isosorbide Mononitrate 30 Mg Tab.Er.24h PO 90 mg DAILY [facility] Administration Lisinopril 10 mg 10/22/24 17:50 10/22/24 18:54 Lisinopril 10 Mg Tablet PO 10 mg BID [facility] Administration Loperamide HCl 2 mg 10/13/24 13:26 Loperamide Hcl 2 Mg Capsule PO PRN PRN Diarrhea Morphine Sulfate 2 mg 10/17/24 16:31 Morphine Sulfate (*Crx) 2 Mg/Ml Inj IV PUSH Q2H PRN Breakthrough Pain Rated 7-10 Ondansetron HCl 4 mg 10/02/24 17:35 10/18/24 18:40 Ondansetron Inj 4 Mg/2 Ml Vial IV PUSH 4 mg Q6H PRN Administration Nausea And Vomiting Ondansetron HCl 4 mg 10/18/24 18:21 Ondansetron Inj 4 Mg/2 Ml Vial IV PUSH Q6H PRN Nausea And Vomiting Oxycodone/Acetaminophen 1 tablet 10/17/24 16:31 10/18/24 01:50 Oxycodone/Acetaminophen (*Crx) 5-325 Mg Tablet PO 1 tablet Q4H PRN Administration Pain Rated 4-6 Pantoprazole Sodium 40 mg 10/03/24 21:00 10/22/24 20:46 Pantoprazole 40 Mg Tablet PO 40 mg QHS [facility] Administration Polyethylene Glycol 17 gm 10/05/24 14:48 Polyethylene Glycol 3350 17 Gm Powd.Pack PO QAM PRN Constipation Propranolol HCl 80 mg 10/03/24 09:00 10/22/24 17:40 Propranolol Hcl 40 Mg Tablet PO 80 mg TID TAMIKA Administration Sertraline HCl 50 mg 10/02/24 23:10 10/22/24 09:02 Sertraline Hcl 50 Mg Tablet BY MOUTH 50 mg DAILY TAMIKA Administration Sodium Chloride 1 spray 10/11/24 16:22 10/12/24 00:02 Saline 0.65% Fabiano Soln 44 Ml Btl NASAL 1 spray Q6HR PRN Administration Congestion Radiology Results: ITS Impressions Foot X-Ray 10/02/24 14:32 IMPRESSION: 1. Nondisplaced fracture of lateral aspect of head of first proximal phalanx. 2. Nondisplaced stellate fracture of tuft of first distal phalanx. 3. Mild polyarticular osteoarthritis. Renal Ultrasound 10/07/24 11:52 IMPRESSION: 1. 3.4 cm mixed solid and cystic lesion at the upper pole the right kidney with 2 cm solid nodular component which is concerning for renal cell carcinoma. Recommend urologic consultation and further evaluation with pre and postcontrast MRI or CT. 2. No hydronephrosis in either kidney. 3. Trabeculated bladder wall which can be seen with neurogenic bladder or chronic outlet obstruction such as in the setting of prostatomegaly. Renal Scan Nuclear Medicine 10/13/24 14:38 IMPRESSION: 1. Symmetric kidney function. 2. Delayed uptake and clearance of activity from the kidneys, consistent with decreased kidney function. Chest X-Ray 10/17/24 16:14 IMPRESSION: Left internal jugular central venous tunneled hemodialysis catheter in position and ready for immediate use Renal Biopsy Ultrasound 10/21/24 13:16 IMPRESSION: 1. Ultrasound-guided random left kidney core needle biopsy. Labs Labs: Laboratory Results - last 24 hr 10/22/24 10/22/24 10/22/24 11:41 16:58 19:49 WBC RBC Hgb Hct MCV MCH MCHC RDW Plt Count MPV Immature Gran % (Auto) Neut % (Auto) Lymph % (Auto) [place] % (Auto) Eos % (Auto) Baso % (Auto) Lymph # (Auto) [place] # (Auto) Eos # (Auto) Baso # (Auto) Abs Immat Gran (auto) Absolute Neuts (auto) Absolute Nucleated RBC Nucleated RBC % Sodium Potassium Chloride Carbon Dioxide Anion Gap BUN Creatinine Estim Creat Clear Calc Estimated GFR Glucose POC Capillary Glucose 160 H 144 H 128 H Calcium Magnesium Total Bilirubin AST ALT Alkaline Phosphatase Total Protein Albumin 10/23/24 10/23/24 10/23/24 06:36 06:37 07:46 WBC 7.1 RBC 3.19 L Hgb 9.7 L Hct 30.5 L MCV 95.6 MCH 30.4 MCHC 31.8 L RDW 14.6 H Plt Count 337 MPV 10.3 Immature Gran % (Auto) 0.6 H Neut % (Auto) 55.9 Lymph % (Auto) 27.2 [place] % (Auto) 11.7 H Eos % (Auto) 4.2 Baso % (Auto) 0.4 Lymph # (Auto) 1.92 [place] # (Auto) 0.8 H Eos # (Auto) 0.3 Baso # (Auto) 0.0 Abs Immat Gran (auto) 0.04 H Absolute Neuts (auto) 4.0 Absolute Nucleated RBC 0.000 Nucleated RBC % 0.0 Sodium 137 Potassium 3.9 Chloride 103 Carbon Dioxide 24 Anion Gap 10 BUN 42 H Creatinine 6.75 H Estim Creat Clear Calc 14 Estimated GFR 8 L Glucose 144 H POC Capillary Glucose 136 H Calcium 6.9 L Magnesium 2.2 Total Bilirubin 1.1 AST 27 ALT 12 Alkaline Phosphatase 133 H Total Protein 6.0 L Albumin 2.5 L Quality VTE Prophylaxis VTE prophylaxis: mechanical ordered and pharmacologic ordered
[2024-10-23] MEDS: SODIUM CHLORIDE 0.9% IV 1,000 ML 999 ML IV CONT (10:39)
[2024-10-23 11:25] LABS: Glucose Point of Care 139 mg/dl (65-105)
--- NOTE | 2024-10-23 12:10 | P.PNNP_ITS ---
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 Caprice Gusman for management of his chronic kidney disease * given renal biopsy results, I suspect he has progressed to end stage renal disease: * any therapy to treat his cresentic glomerulonephritis is unlikely to undue the fact his 80% interstitial fibrosis present in his kidneys * HD today * outpatient dialysis being arranged (2) Diabetic foot ulcer: Code(s): E11.621 - Type 2 diabetes mellitus with foot ulcer; L97.509 - Non-pressure chronic ulcer of other part of unspecified foot with unspecified severity Status: Acute Assessment and Plan: * as noted on admission * poor wound healing noted since injury * X-ray with right great toe fracture * complicated by cellulitis of right great toe * s/p right great toe amputation by Surgery (on 10/06) * culture data noted * blood cultures negative * would culture with Staph aureus * on antibiotics * local wound care (3) COVID: Code(s): U07.1 - COVID-19 Status: Acute Assessment and Plan: * resolving * as noted by recent testing * no evidence of hypoxia or fever * possibly playing a role with #1(?) * continue supportive care (4) Diastolic dysfunction: Onset Date: 03/2022 Code(s): I51.89 - Other ill-defined heart diseases Status: Chronic Assessment and Plan: * appears compensated at this time * ok to resume diuretic therapy (since still make urine) * monitor volume and respiratory status (5) Anemia: Code(s): D64.9 - Anemia, unspecified Status: Chronic Assessment and Plan: * presumably related to CKD from some contributions from JUAN CARLOS, acute infection, and recent operative procedure * Epogen with HD * follow trend of H/H (6) Hypertension: Code(s): I10 - Essential (primary) hypertension Status: Chronic Assessment and Plan: * reasonable control * hydralazine changed to lisinopril - titrate as needed * added hydralazine PRN * follow trend of hemodynamics (7) Renal mass, right: Code(s): N28.89 - Other specified disorders of kidney and ureter Status: Acute Assessment and Plan: * as noted on renal ultrasound * Urology recommendations noted * MRI of abdomen today for further assessment (8) Type 2 diabetes mellitus with diabetic polyneuropathy: Code(s): E11.42 - Type 2 diabetes mellitus with diabetic polyneuropathy Status: Acute Assessment and Plan: * follow accu-checks * brittle control noted - last HgbA1c noted * glycemic control per hospitalist Will continue to follow. L Subjective Date/time seen: 10/23/24 12:10 Interval history: Follow-up for acute kidney injury on chronic kidney disease (with progression to ESRD requiring renal replacement therapy) Tolerating dialysis treatment at the time of my visit (seen on HD at 12:00PM); resting comfortably when seen; BP a bit elevated currently; no other issues/events overnight or earlier this morning; results of renal biopsy reviewed with patient yesterday. Exam 2 Narrative: General: elderly WD/WN male in NAD Heart: normal S1 and S2; no rub Lungs: clear anteriorly Abdomen: soft, nontender, nondistended, positive bowel sounds Extremities: no cyanosis or clubbing; trace edema Skin: dressings over right foot apparent Objective Data Vital Signs Vital Signs: Vital Signs Temp Pulse Resp BP Pulse Ox 10/23/24 12:00 56 L 173/81 H 10/23/24 11:45 57 L 183/90 H 10/23/24 11:30 60 178/98 H 10/23/24 11:15 57 L 168/90 H 10/23/24 11:00 58 L 158/98 H 10/23/24 10:50 60 168/90 H 10/23/24 10:39 98.3 F 59 L 18 172/88 H 10/23/24 05:22 97.5 F L 57 L 16 172/75 H 97 10/23/24 05:21 180/88 H 10/22/24 20:56 97.8 F 54 L 16 149/69 H 98 10/22/24 17:40 70 Intake/Output Intake/Output: Intake & Output 10/20/24 10/21/24 10/22/24 10/23/24 23:59 23:59 23:59 23:59 Intake Total 1038 1040 1920 560 Output Total 1000 2000 Balance 38 1040 1920 -1440 Meds/Results Medications: Active Medications Generic Name Dose Route Start Last Admin Trade Name Freq PRN Reason Stop Dose Admin Acetaminophen 650 mg 10/02/24 16:55 10/20/24 16:47 Acetaminophen 325 Mg Tablet PO 650 mg Q4H PRN Administration Mild Pain (1-3) or Fever Albuterol 2.5 mg 10/12/24 13:19 Albuterol Sulfate Neb 2.5 Mg/3 Ml Inh INHALATION Q4HRT PRN Shortness Of Breath Aspirin 81 mg 10/03/24 09:00 10/20/24 08:58 Aspirin 81 Mg Enteric Tablet PO 81 mg QAM TAMIKA Administration Atorvastatin Calcium 80 mg 10/03/24 09:00 10/23/24 14:58 Atorvastatin 40 Mg Tablet PO 80 mg DAILY TAMIKA Administration Bumetanide 0.5 mg 10/03/24 09:00 10/08/24 08:32 Bumetanide 0.5 Mg Tablet PO 0.5 mg DAILY TAMIKA Administration Buspirone HCl 10 mg 10/03/24 09:00 10/23/24 14:59 Buspirone Hcl 10 Mg Tablet PO 10 mg BID TAMIKA Administration Calcitriol 0.25 mcg 10/03/24 09:00 10/22/24 09:06 Calcitriol 0.25 Mcg Capsule PO 0.25 mcg MoWeFr@0900 TAMIKA Administration Dextrose 12.5 gm 10/02/24 17:35 10/17/24 15:55 Dextrose 50% 25 Gm/50 Ml Syringe IV PUSH 12.5 gm PRN PRN Administration Hypoglycemia Protocol Docusate Sodium 100 mg 10/03/24 09:00 10/23/24 14:58 Docusate Sodium 100 Mg Capsule PO 100 mg BID TAMIKA Administration Ezetimibe 10 mg 10/03/24 09:00 10/23/24 14:59 Ezetimibe 10 Mg Tablet PO 10 mg DAILY TAMIKA Administration Empagliflozin 25 mg 10/03/24 09:00 10/17/24 15:30 Empagliflozin 25 Mg Tablet BY MOUTH Not Given QAM TAMIKA Epoetin Marco-epbx 10,000 units 10/23/24 18:11 10/23/24 12:53 Epoetin Marco-Epbx 10,000 Units/Ml Vial IV PUSH 10/23/24 18:12 10,000 units ONCE ONE Administration Fluticasone Propionate 1 spray 10/11/24 21:00 10/23/24 15:00 Fluticasone Propionate 0.05% Na Spr 16 Gm Btl (*Bkc) NASAL 1 spray Q12HR TAMIKA Administration Glucagon 1 mg 10/02/24 17:35 Glucagon For Inj 1 Mg Vial IM PRN PRN Hypoglycemia Protocol Glucose 15 gm 10/02/24 17:35 10/13/24 17:38 Glucose Oral Gel 15 Gm Of Glucse In 37.5 Gm Tube PO 15 gm PRN PRN Administration Hypoglycemia Protocol Heparin Sodium (Porcine) 5,000 units 10/14/24 21:00 10/23/24 14:59 Heparin Sodium 5,000 Units/Ml Vial SUB-Q 5,000 units Q12HR TAMIKA Administration Hydralazine HCl 10 mg 10/23/24 13:25 Hydralazine Hcl 20 Mg/Ml Vial IV PUSH Q8H PRN Blood Pressure - High Dextrose 1,000 mls @ 100 mls/hr 10/02/24 17:35 Dextrose 5% 1,000 Ml IVPB PRN PRN Hypoglycemia Protocol Albumin Human 50 mls @ 999 mls/hr 10/17/24 16:39 Albutein IVPB 11/16/24 16:38 Q10M PRN HYPOTENSION Insulin Aspart 3 - 6 units 10/03/24 08:00 10/22/24 17:08 Insulin Aspart (*Bkc) 100 Units/Ml SUB-Q Not Given TIDWM [facility] Protocol Insulin Aspart 1 - 3 units 10/02/24 21:00 10/22/24 20:51 Insulin Aspart (*Bkc) 100 Units/Ml SUB-Q Not Given HS [facility] Protocol Insulin Human Regular 25 units 10/16/24 09:35 10/22/24 09:01 Insulin Human Regular (*Bkc) 100 Units/Ml SUB-Q Not Given DAILY@0800 [facility] Isosorbide Mononitrate 90 mg 10/03/24 09:00 10/23/24 14:58 Isosorbide Mononitrate 30 Mg Tab.Er.24h PO 90 mg DAILY TAMIKA Administration Lisinopril 20 mg 10/23/24 17:00 Lisinopril 20 Mg Tablet PO BID TAMIKA Loperamide HCl 2 mg 10/13/24 13:26 Loperamide Hcl 2 Mg Capsule PO PRN PRN Diarrhea Morphine Sulfate 2 mg 10/17/24 16:31 Morphine Sulfate (*Crx) 2 Mg/Ml Inj IV PUSH Q2H PRN Breakthrough Pain Rated 7-10 Ondansetron HCl 4 mg 10/02/24 17:35 10/18/24 18:40 Ondansetron Inj 4 Mg/2 Ml Vial IV PUSH 4 mg Q6H PRN Administration Nausea And Vomiting Ondansetron HCl 4 mg 10/18/24 18:21 Ondansetron Inj 4 Mg/2 Ml Vial IV PUSH Q6H PRN Nausea And Vomiting Oxycodone/Acetaminophen 1 tablet 10/17/24 16:31 10/18/24 01:50 Oxycodone/Acetaminophen (*Crx) 5-325 Mg Tablet PO 1 tablet Q4H PRN Administration Pain Rated 4-6 Pantoprazole Sodium 40 mg 10/03/24 21:00 10/22/24 20:46 Pantoprazole 40 Mg Tablet PO 40 mg QHS TAMIKA Administration Polyethylene Glycol 17 gm 10/05/24 14:48 Polyethylene Glycol 3350 17 Gm Powd.Pack PO QAM PRN Constipation Propranolol HCl 80 mg 10/03/24 09:00 10/23/24 14:59 Propranolol Hcl 40 Mg Tablet PO Not Given TID [facility] Sertraline HCl 50 mg 10/02/24 23:10 10/23/24 14:58 Sertraline Hcl 50 Mg Tablet BY MOUTH 50 mg DAILY TAMIKA Administration Sodium Chloride 1 spray 10/11/24 16:22 10/12/24 00:02 Saline 0.65% Fabiano Soln 44 Ml Btl NASAL 1 spray Q6HR PRN Administration Congestion Radiology Results: ITS Impressions Foot X-Ray 10/02/24 14:32 IMPRESSION: 1. Nondisplaced fracture of lateral aspect of head of first proximal phalanx. 2. Nondisplaced stellate fracture of tuft of first distal phalanx. 3. Mild polyarticular osteoarthritis. Renal Ultrasound 10/07/24 11:52 IMPRESSION: 1. 3.4 cm mixed solid and cystic lesion at the upper pole the right kidney with 2 cm solid nodular component which is concerning for renal cell carcinoma. Recommend urologic consultation and further evaluation with pre and postcontrast MRI or CT. 2. No hydronephrosis in either kidney. 3. Trabeculated bladder wall which can be seen with neurogenic bladder or chronic outlet obstruction such as in the setting of prostatomegaly. Renal Scan Nuclear Medicine 10/13/24 14:38 IMPRESSION: 1. Symmetric kidney function. 2. Delayed uptake and clearance of activity from the kidneys, consistent with decreased kidney function. Chest X-Ray 10/17/24 16:14 IMPRESSION: Left internal jugular central venous tunneled hemodialysis catheter in position and ready for immediate use Renal Biopsy Ultrasound 10/21/24 13:16 IMPRESSION: 1. Ultrasound-guided random left kidney core needle biopsy. Labs Labs: Laboratory Tests 10/23/24 06:37 10/23/24 06:36 Calcium 6.9 L Magnesium 2.2 Total Bilirubin 1.1 AST 27 ALT 12 Alkaline Phosphatase 133 H Total Protein 6.0 L Albumin 2.5 L
[2024-10-23] MEDS: EPOETIN ALFA-EPBX 10,000 UNITS/ML VIAL 10000 UNITS IV PUSH (12:53)
[2024-10-23] MEDS: SERTRALINE HCL 50 MG TABLET BY MOUTH (14:58)
[2024-10-23] MEDS: ATORVASTATIN 40 MG TABLET 80 MG PO (14:58)
[2024-10-23] MEDS: DOCUSATE SODIUM 100 MG CAPSULE PO ×2 (14:58→20:51)
[2024-10-23] MEDS: ISOSORBIDE MONONITRATE 30 MG TAB.ER.24H 90 MG PO (14:58)
[2024-10-23] MEDS: PROPRANOLOL HCL 40 MG TABLET 80 MG PO ×2 (14:58→20:51)
[2024-10-23] MEDS: HEPARIN SODIUM 5,000 UNITS/ML VIAL 5000 UNITS SUB-Q ×2 (14:59→20:50)
[2024-10-23] MEDS: EZETIMIBE 10 MG TABLET PO (14:59)
[2024-10-23] MEDS: busPIRone HCL 10 MG TABLET PO ×2 (14:59→20:51)
[2024-10-23] MEDS: FLUTICASONE PROPIONATE 0.05% NA SPR 16 GM BTL (*BKC) 1 SPRAY NASAL ×2 (15:00→20:52)
[2024-10-23 16:33] LABS: Glucose Point of Care 168 mg/dl (65-105)
[2024-10-23 20:40] LABS: Glucose Point of Care 196 mg/dl (65-105)
[2024-10-23] MEDS: PANTOPRAZOLE 40 MG TABLET PO (20:51)
[2024-10-23] MEDS: lisinopriL 20 MG TABLET PO (20:52)
[2024-10-24] VITALS (7 sets, daily range): BP systolic 120–162; BP diastolic 67–82; PULSE 58–64; RESP 16–18; TEMP 36.4–36.6; O2SAT 96–98
[2024-10-24 06:22] LABS: Basophils Percent Auto 0.5 % (0.2-1.2); Eosinophils Absolute Auto 0.3 K/mm3 (0-0.3); Eosinophils Percent Auto 3.2 % (0-4.4); Hematocrit 29.8 % (42.0-52.0); Hemoglobin 9.5 g/dL (14.0-18.0); Immature Granulocyte Absolute 0.05 K/mm3 (0.00-0.031); Immature Granulocyte Percent A 0.6 % (0-0.5); Lymphocytes Absolute Auto 2.27 K/mm3 (0.9-3.2); Lymphocytes Percent Auto 27.7 % (18.3-44.2); Mean Corpuscular HGB Conc 31.9 g/dl (32-36); Mean Corpuscular Hemoglobin 30.9 pg (26-34); Mean Corpuscular Volume 97.1 fl (80-100); Mean Platelet Volume 10.2 fl (7.4-10.4); Monocytes Percent Auto 12.3 % (2.6-8.5); Neutrophils Absolute Auto 4.6 K/mm3 (1.3-6.7); Neutrophils Percent Auto 55.7 % (45.5-73.1); Platelet Count Result 341 k/mm3 (150-375); Red Blood Count 3.07 M/mm3 (4.6-6.20); Red Cell Distribution Width 14.8 % (11.5-14.5); White Blood Count 8.2 K/mm3 (4.5-10.0)
[2024-10-24 06:43] LABS: Alanine Aminotransferase 13 U/L (6-50); Albumin Level 2.5 g/dL (3.5-5.1); Alkaline Phosphatase 131 U/L (38-126); Anion Gap 8 mmol/L (4-12); Aspartate Amino Transferase 29 U/L (17-59); Bilirubin,Total 1.1 mg/dL (0.2-1.3); Blood Urea Nitrogen 31 mg/dL (9-20); Carbon Dioxide 27 mmol/L (22-30); Chloride 102 mmol/L (98-107); Estimated CRCL calculation 18 ml/min; Estimated Glomerular Filt Rate 11; Glucose 154 mg/dL (65-110); Magnesium 2.1 mg/dL (1.6-2.3); Potassium 3.9 mmol/L (3.4-5.0); Sodium 137 mmol/L (137-145)
[2024-10-24 07:57] LABS: Glucose Point of Care 153 mg/dl (65-105)
[2024-10-24] MEDS: ATORVASTATIN 40 MG TABLET 80 MG PO (09:13)
[2024-10-24] MEDS: ISOSORBIDE MONONITRATE 30 MG TAB.ER.24H 90 MG PO (09:13)
[2024-10-24] MEDS: calcitrioL 0.25 MCG CAPSULE PO (09:14)
[2024-10-24] MEDS: PROPRANOLOL HCL 40 MG TABLET 80 MG PO ×3 (09:14→16:42)
[2024-10-24] MEDS: EZETIMIBE 10 MG TABLET PO (09:15)
[2024-10-24] MEDS: DOCUSATE SODIUM 100 MG CAPSULE PO ×2 (09:15→16:42)
[2024-10-24] MEDS: lisinopriL 20 MG TABLET PO ×2 (09:15→16:42)
[2024-10-24] MEDS: SERTRALINE HCL 50 MG TABLET BY MOUTH (09:15)
[2024-10-24] MEDS: HEPARIN SODIUM 5,000 UNITS/ML VIAL 5000 UNITS SUB-Q ×2 (09:15→21:59)
[2024-10-24] MEDS: busPIRone HCL 10 MG TABLET PO ×2 (09:15→16:43)
[2024-10-24] MEDS: INSULIN HUMAN REGULAR (*BKC) 100 UNITS/ML 25 UNITS SUB-Q (09:16)
[2024-10-24] MEDS: FLUTICASONE PROPIONATE 0.05% NA SPR 16 GM BTL (*BKC) 1 SPRAY NASAL ×2 (09:16→21:50)
--- NOTE | 2024-10-24 09:27 | PCNWS ---
Weekly nutritional screen. Patient is tolerating current Renal, diabetic consistent carb diet with adequate intake, 80-100% meals. No weight loss reported. No nutritional needs at this time.
--- NOTE | 2024-10-24 10:31 | P.PNNP_ITS ---
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 Caprice Gusman for management of his chronic kidney disease * given renal biopsy results, I suspect he has progressed to end stage renal disease: * any therapy to treat his cresentic glomerulonephritis is unlikely to undue the fact his 80% interstitial fibrosis present in his kidneys * HD tomorrow and continue T/T/S schedule * outpatient dialysis finalized (T/T/S schedule at [facility]) (2) Diabetic foot ulcer: Code(s): E11.621 - Type 2 diabetes mellitus with foot ulcer; L97.509 - Non-pressure chronic ulcer of other part of unspecified foot with unspecified severity Status: Acute Assessment and Plan: * as noted on admission * poor wound healing noted since injury * X-ray with right great toe fracture * complicated by cellulitis of right great toe * s/p right great toe amputation by Surgery (on 10/06) * culture data noted * blood cultures negative * would culture with Staph aureus * on antibiotics * local wound care (3) COVID: Code(s): U07.1 - COVID-19 Status: Acute Assessment and Plan: * resolved * as noted by recent testing * no evidence of hypoxia or fever * continue supportive care (4) Diastolic dysfunction: Onset Date: 03/2022 Code(s): I51.89 - Other ill-defined heart diseases Status: Chronic Assessment and Plan: * appears compensated at this time * ok to resume diuretic therapy (since still make urine) * monitor volume and respiratory status (5) Anemia: Code(s): D64.9 - Anemia, unspecified Status: Chronic Assessment and Plan: * presumably related to CKD from some contributions from JUAN CARLOS, acute infection, and recent operative procedure * Epogen with HD * follow trend of H/H (6) Hypertension: Code(s): I10 - Essential (primary) hypertension Status: Chronic Assessment and Plan: * reasonable control * hydralazine changed to lisinopril - titrate as needed * added hydralazine PRN * follow trend of hemodynamics (7) Renal mass, right: Code(s): N28.89 - Other specified disorders of kidney and ureter Status: Acute Assessment and Plan: * as noted on renal ultrasound * Urology recommendations noted * MRI of abdomen only notes cysts, no mass... (8) Type 2 diabetes mellitus with diabetic polyneuropathy: Code(s): E11.42 - Type 2 diabetes mellitus with diabetic polyneuropathy Status: Acute Assessment and Plan: * follow accu-checks * brittle control noted - last HgbA1c noted * glycemic control per hospitalist Not opposed to discharge from renal perspective after dialysis tomorrow if otherwise medically stable. Will continue to follow. L Subjective Date/time seen: 10/24/24 10:31 Interval history: Follow-up for acute kidney injury on chronic kidney disease (with progression to ESRD requiring renal replacement therapy) Tolerated dialysis treatment yesterday without any issues or problems; no apparent distress noted at the time of my visit; feels reasonably well; no acute issues/events overnight or earlier this morning; outpatient dialysis facility and unit appears to have been finalized with first outpatient treatment being next Sunday. Exam 2 Narrative: General: elderly WD/WN male in NAD Heart: normal S1 and S2; no rub Lungs: clear anteriorly Abdomen: soft, nontender, nondistended, positive bowel sounds Extremities: no cyanosis or clubbing; trace edema Skin: dressings over right foot apparent Objective Data Vital Signs Vital Signs: Vital Signs Temp Pulse Resp BP Pulse Ox O2 Del Method 10/24/24 10:30 58 L 134/72 10/24/24 09:14 63 10/24/24 09:10 Room Air 10/24/24 05:45 97.8 F 63 16 162/82 H 97 10/23/24 21:20 97.9 F 69 20 152/73 H 98 Intake/Output Intake/Output: Intake & Output 03/04/25 10/22/24 10/23/24 10/24/24 23:59 23:59 23:59 23:59 Intake Total 1040 4246 136 8852 Output Total 1999 Balance 1040 1920 -1200 1450 Meds/Results Medications: Active Medications Generic Name Dose Route Start Last Admin Trade Name Freq PRN Reason Stop Dose Admin Acetaminophen 650 mg 10/02/24 16:55 10/20/24 16:47 Acetaminophen 325 Mg Tablet PO 650 mg Q4H PRN Administration Mild Pain (1-3) or Fever Albuterol 2.5 mg 10/12/24 13:19 Albuterol Sulfate Neb 2.5 Mg/3 Ml Inh INHALATION Q4HRT PRN Shortness Of Breath Aspirin 81 mg 10/03/24 09:00 10/20/24 08:58 Aspirin 81 Mg Enteric Tablet PO 81 mg QAM TAMIKA Administration Atorvastatin Calcium 80 mg 10/03/24 09:00 10/24/24 09:13 Atorvastatin 40 Mg Tablet PO 80 mg DAILY TAMIKA Administration Bumetanide 0.5 mg 10/03/24 09:00 10/08/24 08:32 Bumetanide 0.5 Mg Tablet PO 0.5 mg DAILY TAMIKA Administration Buspirone HCl 10 mg 10/03/24 09:00 10/24/24 16:43 Buspirone Hcl 10 Mg Tablet PO 10 mg BID TAMIKA Administration Calcitriol 0.25 mcg 10/03/24 09:00 10/24/24 09:14 Calcitriol 0.25 Mcg Capsule PO 0.25 mcg MoWeFr@0900 TAMIKA Administration Dextrose 12.5 gm 10/02/24 17:35 10/17/24 15:55 Dextrose 50% 25 Gm/50 Ml Syringe IV PUSH 12.5 gm PRN PRN Administration Hypoglycemia Protocol Docusate Sodium 100 mg 10/03/24 09:00 10/24/24 16:42 Docusate Sodium 100 Mg Capsule PO 100 mg BID TAMIKA Administration Ezetimibe 10 mg 10/03/24 09:00 10/24/24 09:15 Ezetimibe 10 Mg Tablet PO 10 mg DAILY TAMIKA Administration Empagliflozin 25 mg 10/03/24 09:00 10/17/24 15:30 Empagliflozin 25 Mg Tablet BY MOUTH Not Given QAM [facility] Fluticasone Propionate 1 spray 10/11/24 21:00 10/24/24 09:16 Fluticasone Propionate 0.05% Na Spr 16 Gm Btl (*Bkc) NASAL 1 spray Q12HR TAMIKA Administration Glucagon 1 mg 10/02/24 17:35 Glucagon For Inj 1 Mg Vial IM PRN PRN Hypoglycemia Protocol Glucose 15 gm 10/02/24 17:35 10/13/24 17:38 Glucose Oral Gel 15 Gm Of Glucse In 37.5 Gm Tube PO 15 gm PRN PRN Administration Hypoglycemia Protocol Heparin Sodium (Porcine) 5,000 units 10/14/24 21:00 10/24/24 09:15 Heparin Sodium 5,000 Units/Ml Vial SUB-Q 5,000 units Q12HR TAMIKA Administration Dextrose 1,000 mls @ 100 mls/hr 10/02/24 17:35 Dextrose 5% 1,000 Ml IVPB PRN PRN Hypoglycemia Protocol Albumin Human 50 mls @ 999 mls/hr 10/17/24 16:39 Albutein IVPB 11/16/24 16:38 Q10M PRN HYPOTENSION Insulin Aspart 3 - 6 units 10/03/24 08:00 10/24/24 17:14 Insulin Aspart (*Bkc) 100 Units/Ml SUB-Q Not Given TIDWM TAMIKA Protocol Insulin Aspart 1 - 3 units 10/02/24 21:00 10/24/24 00:34 Insulin Aspart (*Bkc) 100 Units/Ml SUB-Q Not Given HS [facility] Protocol Insulin Human Regular 25 units 10/16/24 09:35 10/24/24 09:16 Insulin Human Regular (*Bkc) 100 Units/Ml SUB-Q 25 units DAILY@0800 TAMIKA Administration Isosorbide Mononitrate 90 mg 10/03/24 09:00 10/24/24 09:13 Isosorbide Mononitrate 30 Mg Tab.Er.24h PO 90 mg DAILY TAMIKA Administration Lisinopril 20 mg 10/23/24 17:00 10/24/24 16:42 Lisinopril 20 Mg Tablet PO 20 mg BID TAMIKA Administration Loperamide HCl 2 mg 10/13/24 13:26 Loperamide Hcl 2 Mg Capsule PO PRN PRN Diarrhea Morphine Sulfate 2 mg 10/17/24 16:31 Morphine Sulfate (*Crx) 2 Mg/Ml Inj IV PUSH Q2H PRN Breakthrough Pain Rated 7-10 Ondansetron HCl 4 mg 10/18/24 18:21 Ondansetron Inj 4 Mg/2 Ml Vial IV PUSH Q6H PRN Nausea And Vomiting Oxycodone/Acetaminophen 1 tablet 10/17/24 16:31 10/18/24 01:50 Oxycodone/Acetaminophen (*Crx) 5-325 Mg Tablet PO 1 tablet Q4H PRN Administration Pain Rated 4-6 Pantoprazole Sodium 40 mg 10/03/24 21:00 10/23/24 20:51 Pantoprazole 40 Mg Tablet PO 40 mg QHS TAMIKA Administration Polyethylene Glycol 17 gm 10/05/24 14:48 Polyethylene Glycol 3350 17 Gm Powd.Pack PO QAM PRN Constipation Propranolol HCl 80 mg 10/03/24 09:00 10/24/24 16:42 Propranolol Hcl 40 Mg Tablet PO 80 mg TID TAMIKA Administration Sertraline HCl 50 mg 10/02/24 23:10 10/24/24 09:15 Sertraline Hcl 50 Mg Tablet BY MOUTH 50 mg DAILY TAMIKA Administration Sodium Chloride 1 spray 10/11/24 16:22 10/12/24 00:02 Saline 0.65% Fabiano Soln 44 Ml Btl NASAL 1 spray Q6HR PRN Administration Congestion Radiology Results: ITS Impressions Foot X-Ray 10/02/24 14:32 IMPRESSION: 1. Nondisplaced fracture of lateral aspect of head of first proximal phalanx. 2. Nondisplaced stellate fracture of tuft of first distal phalanx. 3. Mild polyarticular osteoarthritis. Renal Ultrasound 10/07/24 11:52 IMPRESSION: 1. 3.4 cm mixed solid and cystic lesion at the upper pole the right kidney with 2 cm solid nodular component which is concerning for renal cell carcinoma. Recommend urologic consultation and further evaluation with pre and postcontrast MRI or CT. 2. No hydronephrosis in either kidney. 3. Trabeculated bladder wall which can be seen with neurogenic bladder or chronic outlet obstruction such as in the setting of prostatomegaly. Renal Scan Nuclear Medicine 10/13/24 14:38 IMPRESSION: 1. Symmetric kidney function. 2. Delayed uptake and clearance of activity from the kidneys, consistent with decreased kidney function. Chest X-Ray 10/17/24 16:14 IMPRESSION: Left internal jugular central venous tunneled hemodialysis catheter in position and ready for immediate use Renal Biopsy Ultrasound 10/21/24 13:16 IMPRESSION: 1. Ultrasound-guided random left kidney core needle biopsy. Abdomen MRI 10/23/24 09:22 IMPRESSION: 1. Benign cysts in the kidneys. 2. Small pleural effusions. Labs Labs: Laboratory Tests 10/24/24 06:03 10/24/24 06:03 Calcium 7.0 L Magnesium 2.1 Total Bilirubin 1.1 AST 29 ALT 13 Alkaline Phosphatase 131 H Total Protein 6.0 L Albumin 2.5 L
[2024-10-24 12:00] LABS: Glucose Point of Care 94 mg/dl (65-105)
--- NOTE | 2024-10-24 14:38 | PM.IMPN ---
Progress Note: A&P Assessment and Plan (1) Diabetic foot ulcer: Code(s): E11.621 - Type 2 diabetes mellitus with foot ulcer; L97.509 - Non-pressure chronic ulcer of other part of unspecified foot with unspecified severity Status: Acute Assessment and Plan: patient reports injury to right great toe with worsening symptoms patient has severe diabetes and CAD with poor wound healing initial x-ray showed right great toe fractured CRP elevate no WBC blood cultures negative wound culture: staph aureus Antibiotics: IV cefepime, vancomycin and Flagyl transitioned to doxy and Augmentin per cultures on 10/06 course completed Will need close glucose control for any type of wound healing patient is a severely uncontrolled diabetic on high-dose insulin Surgery consulted if debridement or amputation needed s/p Sharp excisional debridement right great toe diabetic foot ulcer measuring 5 cm x 3 cm including skin, subcutaneous fat, and tendon on 10/[address] Aceves s/p Right great toe ray amputation on 10/[address] Aceves WBC WNL. Dressing clean/dry/intact. Will need to follow up with surgery in the outpatient setting. (2) Fracture of right great toe: Code(s): S92.401A - Displaced unspecified fracture of right great toe, initial encounter for closed fracture Status: Acute Assessment and Plan: Foot XR: Nondisplaced fracture of lateral aspect of head of first proximal phalanx. Nondisplaced stellate fracture of tuft of first distal phalanx. Pain management elevate at rest s/p Right great toe ray amputation on 10/[address] Aceves Dressing clean/dry/intact. Will need to follow up with surgery in the outpatient setting. (3) Chronic kidney disease, stage 3b: Code(s): N18.32 - Chronic kidney disease, stage 3b Status: Acute Assessment and Plan: Acute on chronic renal failure Baseline creatinine has been running 2.3 - 2.7mg/dl in the last few years, Cr 3.32 on admission. Etiology uncertain but considers COVID, DM, HTN, Vascular disease and age. NM renal scan shows normal symmetric kidney function and delayed uptake and clearance of activity from within the kidneys, consistent with decreased kidney function. Renal US: A 3.4 cm mixed solid and cystic lesion at the upper pole the right kidney with 2 cm solid nodular component which is concerning for renal cell carcinoma. Recommend urologic consultation and further evaluation with pre and postcontrast MRI or CT. Unable to do further imaging at this time due to renal function. Renal Bx obtained, results per nephrology: significant changes consistent with diabetic glomerulosclerosis, 80% tubular atrophy/interstitial fibrosis, findings also suggest post-infectious glomerulonephritis Continue to hold diuretics Minimize renal offending agents. Renal dialysis diet follows with Dr. Caprice Gusman for management of his chronic kidney disease Nephrology is following. s/p Placement left internal jugular tunneled dura flow central venous catheter using ultrasound and under fluoroscopy on 10/[address] Lema for HD Started HD on 10/20. Tolerated HD well. Discussed patient with care coordination and he cannot receive outpatient dialysis until Sunday. Discussed with Dr. Jacobsen and he will remain inpatient today to receive dialysis tomorrow. Plan for discharge following dialysis tomorrow. (4) Hypertension: Code(s): I10 - Essential (primary) hypertension Status: Chronic Assessment and Plan: Hypertension likely secondary to ESRD. Started on lisinopril 10 mg daily which was increased to 20 mg daily after further discussion with Dr. Jacobsen Remains on Imdur 90 mg daily and propranolol 80 mg TID Blood pressures are better controlled, Continue to monitor (5) Renal mass, right: Code(s): N28.89 - Other specified disorders of kidney and ureter Status: Acute Assessment and Plan: Renal US A 3.4 cm mixed solid and cystic lesion at the upper pole the right kidney with 2 cm solid nodular component which is concerning for renal cell carcinoma. Recommend urologic consultation and further evaluation with pre and postcontrast MRI or CT. Unable to do further imaging at this time due to renal function. Urology and Nephrology following. 10/13/24 per prior provider: Discussed with Dr. Jacobsen whether or not it is appropriate to inquire about doing a biopsy of the renal mass and whether or not that is contributing to his renal function, but he does not believe that it is contributing. He further notes that if there is concern for possible neoplastic disease, typically the mass is just resected and not biopsied. Renal Bx US done on 10/21: Results per nephrology: significant changes consistent with diabetic glomerulosclerosis, 80% tubular atrophy/interstitial fibrosis, findings also suggest post-infectious glomerulonephritis Abdomen MRI: Benign cysts in the kidneys. (6) Type 2 diabetes mellitus with diabetic polyneuropathy: Code(s): E11.42 - Type 2 diabetes mellitus with diabetic polyneuropathy Status: Acute Assessment and Plan: - hypoglycemia protocol - POC blood glucose ACHS - Holding semaglutide and jardiance - Continue Zetia - mod dose TIDWM - 25 units regular insulin daily - blood glucose levels remain stable - A1C 7.9 (7) Diastolic dysfunction: Onset Date: 03/2022 Code(s): I51.89 - Other ill-defined heart diseases Status: Chronic Assessment and Plan: patient does not appear to be in exacerbation Bumex on hold for CKD (8) Presence of aortocoronary bypass graft: Onset Date: 10/2017 Code(s): Z95.1 - Presence of aortocoronary bypass graft Status: Acute Assessment and Plan: Continue Inderal, Aspirin, Lipitor, an Imdur, Atorvastatin (9) COVID: Code(s): U07.1 - COVID-19 Status: Acute Assessment and Plan: Supportive care. No steroids or other antivirals ordered in setting of no supplemental oxygen required. PRN nebs ordered. (10) Transaminitis: Code(s): R74.01 - Elevation of levels of liver transaminase levels Status: Acute Assessment and Plan: New during this admission. Most likely etiology is having COVID. Pt asympotmatic. Labs continue to downtrend. If any development of pain, N/V then would consider RUQ US/CT abd pelvis. (11) Hypocalcemia: Code(s): E83.51 - Hypocalcemia Status: Acute Assessment and Plan: Calcium 7 Monitor level. Plan Time Spent With Patient Time with patient: 25 - 35 minutes Subjective Date/time seen: 10/24/24 14:38 Interval history: 69-year-old male past medical history of CKD stage 3 diastolic dysfunction, diabetes type 2 and CAD presents the hospital with acute toe pain and discoloration. Patient is pleasant lying in bed. He has no complaints at this time denying chest pain, shortness of breath, palpitations, nausea/vomiting and abdominal pain. Discussed patient with care coordination and he cannot receive outpatient dialysis until Sunday. Discussed with Dr. Jacobsen and he will remain inpatient today to receive dialysis tomorrow. Plan for discharge following dialysis tomorrow. Review of Systems Review of Systems: All systems reviewed & are unremarkable except as noted in HPI and below Exam Narrative: AF HR 58 RR 16 SpO2 97 BP 134/72 General: male in no acute respiratory distress who is nontoxic appearing, lying semi recumbent in bed. HEENT: Normocephalic. Atraumatic. Extraocular movement intact. Sclera clear and anicteric. No facial asymmetry. Chest: Lungs are clear to auscultation bilaterally. No wheezes or crackles. CV: Heart was regular rate and rhythm. S1/S2. No murmurs, gallops, or rubs. Abd: Abdomen was soft. Nontender. Nondistended. Positive bowel sounds. Ext: Dressing is clean/dry/intact. Neuro: Patient is alert and oriented x4. Speech is clear. Objective Data Vital Signs Vital Signs: Vital Signs - 24 hr 10/23/24 14:58 10/23/24 16:20 10/23/24 21:20 Temperature 96.9 F L 97.9 F Pulse Rate 64 61 69 Respiratory Rate 18 20 Blood Pressure 129/52 L 152/73 H Pulse Oximetry 99 98 Oxygen Delivery 10/24/24 05:45 10/24/24 09:10 10/24/24 09:14 Temperature 97.8 F Pulse Rate 63 63 Respiratory Rate 16 Blood Pressure 162/82 H Pulse Oximetry 97 Oxygen Delivery Room Air 10/24/24 12:31 10/24/24 12:31 Temperature Pulse Rate 58 L 58 L Respiratory Rate Blood Pressure 134/72 Pulse Oximetry Oxygen Delivery Intake/Output Intake/Output: Intake & Output 10/21/24 10/22/24 10/23/24 10/24/24 23:59 23:59 23:59 23:59 Intake Total 1040 1920 800 420 Output Total 1999 Balance 1040 1920 -1200 420 Meds/Results Medications: Active Medications Generic Name Dose Route Start Last Admin Trade Name Freq PRN Reason Stop Dose Admin Acetaminophen 650 mg 10/02/24 16:55 10/20/24 16:47 Acetaminophen 325 Mg Tablet PO 650 mg Q4H PRN Administration Mild Pain (1-3) or Fever Albuterol 2.5 mg 10/12/24 13:19 Albuterol Sulfate Neb 2.5 Mg/3 Ml Inh INHALATION Q4HRT PRN Shortness Of Breath Aspirin 81 mg 10/03/24 09:00 10/20/24 08:58 Aspirin 81 Mg Enteric Tablet PO 81 mg QAM TAMIKA Administration Atorvastatin Calcium 80 mg 10/03/24 09:00 10/24/24 09:13 Atorvastatin 40 Mg Tablet PO 80 mg DAILY TAMIKA Administration Bumetanide 0.5 mg 10/03/24 09:00 10/08/24 08:32 Bumetanide 0.5 Mg Tablet PO 0.5 mg DAILY TAMIKA Administration Buspirone HCl 10 mg 10/03/24 09:00 10/24/24 09:15 Buspirone Hcl 10 Mg Tablet PO 10 mg BID TAMIKA Administration Calcitriol 0.25 mcg 10/03/24 09:00 10/24/24 09:14 Calcitriol 0.25 Mcg Capsule PO 0.25 mcg MoWeFr@0900 TAMIKA Administration Dextrose 12.5 gm 10/02/24 17:35 10/17/24 15:55 Dextrose 50% 25 Gm/50 Ml Syringe IV PUSH 12.5 gm PRN PRN Administration Hypoglycemia Protocol Docusate Sodium 100 mg 10/03/24 09:00 10/24/24 09:15 Docusate Sodium 100 Mg Capsule PO 100 mg BID TAMIKA Administration Ezetimibe 10 mg 10/03/24 09:00 10/24/24 09:15 Ezetimibe 10 Mg Tablet PO 10 mg DAILY TAMIKA Administration Empagliflozin 25 mg 10/03/24 09:00 10/17/24 15:30 Empagliflozin 25 Mg Tablet BY MOUTH Not Given QAM [facility] Fluticasone Propionate 1 spray 10/11/24 21:00 10/24/24 09:16 Fluticasone Propionate 0.05% Na Spr 16 Gm Btl (*Bkc) NASAL 1 spray Q12HR TAMIKA Administration Glucagon 1 mg 10/02/24 17:35 Glucagon For Inj 1 Mg Vial IM PRN PRN Hypoglycemia Protocol Glucose 15 gm 10/02/24 17:35 10/13/24 17:38 Glucose Oral Gel 15 Gm Of Glucse In 37.5 Gm Tube PO 15 gm PRN PRN Administration Hypoglycemia Protocol Heparin Sodium (Porcine) 5,000 units 10/14/24 21:00 10/24/24 09:15 Heparin Sodium 5,000 Units/Ml Vial SUB-Q 5,000 units Q12HR TAMIKA Administration Dextrose 1,000 mls @ 100 mls/hr 10/02/24 17:35 Dextrose 5% 1,000 Ml IVPB PRN PRN Hypoglycemia Protocol Albumin Human 50 mls @ 999 mls/hr 10/17/24 16:39 Albutein IVPB 11/16/24 16:38 Q10M PRN HYPOTENSION Insulin Aspart 3 - 6 units 10/03/24 08:00 10/24/24 12:02 Insulin Aspart (*Bkc) 100 Units/Ml SUB-Q Not Given TIDWM [facility] Protocol Insulin Aspart 1 - 3 units 10/02/24 21:00 10/24/24 00:34 Insulin Aspart (*Bkc) 100 Units/Ml SUB-Q Not Given HS [facility] Protocol Insulin Human Regular 25 units 10/16/24 09:35 10/24/24 09:16 Insulin Human Regular (*Bkc) 100 Units/Ml SUB-Q 25 units DAILY@0800 [facility] Administration Isosorbide Mononitrate 90 mg 10/03/24 09:00 10/24/24 09:13 Isosorbide Mononitrate 30 Mg Tab.Er.24h PO 90 mg DAILY [facility] Administration Lisinopril 20 mg 10/23/24 17:00 10/24/24 09:15 Lisinopril 20 Mg Tablet PO 20 mg BID [facility] Administration Loperamide HCl 2 mg 10/13/24 13:26 Loperamide Hcl 2 Mg Capsule PO PRN PRN Diarrhea Morphine Sulfate 2 mg 10/17/24 16:31 Morphine Sulfate (*Crx) 2 Mg/Ml Inj IV PUSH Q2H PRN Breakthrough Pain Rated 7-10 Ondansetron HCl 4 mg 10/18/24 18:21 Ondansetron Inj 4 Mg/2 Ml Vial IV PUSH Q6H PRN Nausea And Vomiting Oxycodone/Acetaminophen 1 tablet 10/17/24 16:31 10/18/24 01:50 Oxycodone/Acetaminophen (*Crx) 5-325 Mg Tablet PO 1 tablet Q4H PRN Administration Pain Rated 4-6 Pantoprazole Sodium 40 mg 10/03/24 21:00 10/23/24 20:51 Pantoprazole 40 Mg Tablet PO 40 mg QHS [facility] Administration Polyethylene Glycol 17 gm 10/05/24 14:48 Polyethylene Glycol 3350 17 Gm Powd.Pack PO QAM PRN Constipation Propranolol HCl 80 mg 10/03/24 09:00 10/24/24 12:31 Propranolol Hcl 40 Mg Tablet PO 80 mg TID [facility] Administration Sertraline HCl 50 mg 10/02/24 23:10 10/24/24 09:15 Sertraline Hcl 50 Mg Tablet BY MOUTH 50 mg DAILY TAMIKA Administration Sodium Chloride 1 spray 10/11/24 16:22 10/12/24 00:02 Saline 0.65% Fabiano Soln 44 Ml Btl NASAL 1 spray Q6HR PRN Administration Congestion Radiology Results: ITS Impressions Foot X-Ray 10/02/24 14:32 IMPRESSION: 1. Nondisplaced fracture of lateral aspect of head of first proximal phalanx. 2. Nondisplaced stellate fracture of tuft of first distal phalanx. 3. Mild polyarticular osteoarthritis. Renal Ultrasound 10/07/24 11:52 IMPRESSION: 1. 3.4 cm mixed solid and cystic lesion at the upper pole the right kidney with 2 cm solid nodular component which is concerning for renal cell carcinoma. Recommend urologic consultation and further evaluation with pre and postcontrast MRI or CT. 2. No hydronephrosis in either kidney. 3. Trabeculated bladder wall which can be seen with neurogenic bladder or chronic outlet obstruction such as in the setting of prostatomegaly. Renal Scan Nuclear Medicine 10/13/24 14:38 IMPRESSION: 1. Symmetric kidney function. 2. Delayed uptake and clearance of activity from the kidneys, consistent with decreased kidney function. Chest X-Ray 10/17/24 16:14 IMPRESSION: Left internal jugular central venous tunneled hemodialysis catheter in position and ready for immediate use Renal Biopsy Ultrasound 10/21/24 13:16 IMPRESSION: 1. Ultrasound-guided random left kidney core needle biopsy. Abdomen MRI 10/23/24 09:22 IMPRESSION: 1. Benign cysts in the kidneys. 2. Small pleural effusions. Labs Labs: Laboratory Results - last 24 hr 10/23/24 10/23/24 10/24/24 16:27 20:02 06:03 WBC 8.2 RBC 3.07 L Hgb 9.5 L Hct 29.8 L MCV 97.1 MCH 30.9 MCHC 31.9 L RDW 14.8 H Plt Count 341 MPV 10.2 Immature Gran % (Auto) 0.6 H Neut % (Auto) 55.7 Lymph % (Auto) 27.7 [place] % (Auto) 12.3 H Eos % (Auto) 3.2 Baso % (Auto) 0.5 Lymph # (Auto) 2.27 [place] # (Auto) 1.0 H Eos # (Auto) 0.3 Baso # (Auto) 0.0 Abs Immat Gran (auto) 0.05 H Absolute Neuts (auto) 4.6 Absolute Nucleated RBC 0.000 Nucleated RBC % 0.0 Sodium 137 Potassium 3.9 Chloride 102 Carbon Dioxide 27 Anion Gap 8 BUN 31 H D Creatinine 5.16 H Estim Creat Clear Calc 18 Estimated GFR 11 L Glucose 154 H POC Capillary Glucose 168 H 196 H Calcium 7.0 L Magnesium 2.1 Total Bilirubin 1.1 AST 29 ALT 13 Alkaline Phosphatase 131 H Total Protein 6.0 L Albumin 2.5 L 10/24/24 10/24/24 07:43 11:52 WBC RBC Hgb Hct MCV MCH MCHC RDW Plt Count MPV Immature Gran % (Auto) Neut % (Auto) Lymph % (Auto) [place] % (Auto) Eos % (Auto) Baso % (Auto) Lymph # (Auto) [place] # (Auto) Eos # (Auto) Baso # (Auto) Abs Immat Gran (auto) Absolute Neuts (auto) Absolute Nucleated RBC Nucleated RBC % Sodium Potassium Chloride Carbon Dioxide Anion Gap BUN Creatinine Estim Creat Clear Calc Estimated GFR Glucose POC Capillary Glucose 153 H 94 Calcium Magnesium Total Bilirubin AST ALT Alkaline Phosphatase Total Protein Albumin Quality VTE Prophylaxis VTE prophylaxis: mechanical ordered and pharmacologic ordered
[2024-10-24 17:08] LABS: Glucose Point of Care 105 mg/dl (65-105)
[2024-10-24 21:34] LABS: Glucose Point of Care 153 mg/dl (65-105)
[2024-10-24] MEDS: PANTOPRAZOLE 40 MG TABLET PO (21:58)
[2024-10-25] VITALS (23 sets, daily range): BP systolic 147–184; BP diastolic 64–100; PULSE 53–68; RESP 16–18; TEMP 36.4–37.1; O2SAT 96–98
[2024-10-25 06:45] LABS: Magnesium 2.2 mg/dL (1.6-2.3); Phosphorus 4.3 mg/dL (2.5-4.5)
[2024-10-25 08:09] LABS: Glucose Point of Care 146 mg/dl (65-105)
[2024-10-25] MEDS: SERTRALINE HCL 50 MG TABLET BY MOUTH (08:44)
[2024-10-25] MEDS: ATORVASTATIN 40 MG TABLET 80 MG PO (08:44)
[2024-10-25] MEDS: ISOSORBIDE MONONITRATE 30 MG TAB.ER.24H 90 MG PO (08:44)
[2024-10-25] MEDS: EZETIMIBE 10 MG TABLET PO (08:44)
[2024-10-25] MEDS: DOCUSATE SODIUM 100 MG CAPSULE PO (08:44)
[2024-10-25] MEDS: FLUTICASONE PROPIONATE 0.05% NA SPR 16 GM BTL (*BKC) 1 SPRAY NASAL (08:45)
[2024-10-25] MEDS: lisinopriL 20 MG TABLET PO (08:45)
[2024-10-25] MEDS: PROPRANOLOL HCL 40 MG TABLET 80 MG PO ×2 (08:45→13:54)
[2024-10-25] MEDS: busPIRone HCL 10 MG TABLET PO (08:45)
--- NOTE | 2024-10-25 11:25 | P.PNNP_ITS ---
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 Caprice Gusman for management of his chronic kidney disease * given renal biopsy results, I suspect he has progressed to end stage renal disease: * any therapy to treat his cresentic glomerulonephritis is unlikely to undue the fact his 80% interstitial fibrosis present in his kidneys * HD today and continue T/T/S schedule * outpatient dialysis finalized (T/T/S schedule at [facility]) (2) Diabetic foot ulcer: Code(s): E11.621 - Type 2 diabetes mellitus with foot ulcer; L97.509 - Non-pressure chronic ulcer of other part of unspecified foot with unspecified severity Status: Acute Assessment and Plan: * as noted on admission * poor wound healing noted since injury * X-ray with right great toe fracture * complicated by cellulitis of right great toe * s/p right great toe amputation by Surgery (on 10/06) * culture data noted * blood cultures negative * would culture with Staph aureus * on antibiotics * local wound care (3) COVID: Code(s): U07.1 - COVID-19 Status: Acute Assessment and Plan: * resolved * as noted by recent testing * no evidence of hypoxia or fever * continue supportive care (4) Diastolic dysfunction: Onset Date: 03/2022 Code(s): I51.89 - Other ill-defined heart diseases Status: Chronic Assessment and Plan: * appears compensated at this time * ok to resume diuretic therapy (since still make urine) * monitor volume and respiratory status (5) Anemia: Code(s): D64.9 - Anemia, unspecified Status: Chronic Assessment and Plan: * presumably related to CKD from some contributions from JUAN CARLOS, acute infection, and recent operative procedure * Epogen with HD * follow trend of H/H (6) Hypertension: Code(s): I10 - Essential (primary) hypertension Status: Chronic Assessment and Plan: * reasonable control * lisinopril added to regimen * follow trend of hemodynamics (7) Renal mass, right: Code(s): N28.89 - Other specified disorders of kidney and ureter Status: Acute Assessment and Plan: * as noted on renal ultrasound * Urology recommendations noted * MRI of abdomen only notes cysts, no mass... (8) Type 2 diabetes mellitus with diabetic polyneuropathy: Code(s): E11.42 - Type 2 diabetes mellitus with diabetic polyneuropathy Status: Acute Assessment and Plan: * follow accu-checks * brittle control noted - last HgbA1c noted * glycemic control per hospitalist Not opposed to discharge from renal perspective after dialysis treatment completed today if otherwise medically stable. Will continue to follow. L Subjective Date/time seen: 10/25/24 11:25 Interval history: Follow-up for acute kidney injury on chronic kidney disease (with progression to ESRD requiring renal replacement therapy) Tolerating dialysis treatment at the time of my visit (seen on HD at 11:15); no apparent distress noted when seen; happy about going home today; no other acute issues/events overnight or earlier this morning; feels reasonably well. Exam 2 Narrative: General: elderly WD/WN male in NAD Heart: normal S1 and S2; no rub Lungs: clear anteriorly Abdomen: soft, nontender, nondistended, positive bowel sounds Extremities: no cyanosis or clubbing; trace edema Skin: dressings over right foot in place Objective Data Vital Signs Vital Signs: Vital Signs Temp Pulse Resp BP Pulse Ox O2 Del Method 10/25/24 11:15 53 L 175/81 H 10/25/24 11:00 53 L 168/82 H 10/25/24 10:51 55 L 167/85 H 10/25/24 10:32 97.7 F 60 18 163/83 H 98 10/25/24 08:45 Room Air 10/25/24 08:45 64 10/25/24 06:00 97.7 F 59 L 18 155/78 H 97 10/24/24 21:34 97.5 F L 64 18 154/68 H 96 10/24/24 16:42 60 10/24/24 16:41 60 148/80 H Intake/Output Intake/Output: Intake & Output 10/22/24 10/23/24 10/24/24 10/25/24 23:59 23:59 23:59 23:59 Intake Total 7159 943 0389 180 Output Total 1999 1500 Balance 1920 -1200 1450 -1320 Meds/Results Medications: Active Medications Generic Name Dose Route Start Last Admin Trade Name Freq PRN Reason Stop Dose Admin Acetaminophen 650 mg 10/02/24 16:55 10/20/24 16:47 Acetaminophen 325 Mg Tablet PO 650 mg Q4H PRN Administration Mild Pain (1-3) or Fever Albuterol 2.5 mg 10/12/24 13:19 Albuterol Sulfate Neb 2.5 Mg/3 Ml Inh INHALATION Q4HRT PRN Shortness Of Breath Aspirin 81 mg 10/03/24 09:00 10/20/24 08:58 Aspirin 81 Mg Enteric Tablet PO 81 mg QAM TAMIKA Administration Atorvastatin Calcium 80 mg 10/03/24 09:00 10/25/24 08:44 Atorvastatin 40 Mg Tablet PO 80 mg DAILY TAMIKA Administration Bumetanide 0.5 mg 10/03/24 09:00 10/08/24 08:32 Bumetanide 0.5 Mg Tablet PO 0.5 mg DAILY TAMIKA Administration Buspirone HCl 10 mg 10/03/24 09:00 10/25/24 08:45 Buspirone Hcl 10 Mg Tablet PO 10 mg BID TAMIKA Administration Calcitriol 0.25 mcg 10/03/24 09:00 10/24/24 09:14 Calcitriol 0.25 Mcg Capsule PO 0.25 mcg MoWeFr@0900 TAMIKA Administration Dextrose 12.5 gm 10/02/24 17:35 10/17/24 15:55 Dextrose 50% 25 Gm/50 Ml Syringe IV PUSH 12.5 gm PRN PRN Administration Hypoglycemia Protocol Docusate Sodium 100 mg 10/03/24 09:00 10/25/24 08:44 Docusate Sodium 100 Mg Capsule PO 100 mg BID TAMIKA Administration Ezetimibe 10 mg 10/03/24 09:00 10/25/24 08:44 Ezetimibe 10 Mg Tablet PO 10 mg DAILY TAMIKA Administration Empagliflozin 25 mg 10/03/24 09:00 10/17/24 15:30 Empagliflozin 25 Mg Tablet BY MOUTH Not Given QAM TAMIKA Epoetin Marco-epbx 10,000 units 10/25/24 18:19 10/25/24 13:49 Epoetin Marco-Epbx 10,000 Units/Ml Vial IV PUSH 10/25/24 18:20 10,000 units ONCE ONE Administration Fluticasone Propionate 1 spray 10/11/24 21:00 10/25/24 08:45 Fluticasone Propionate 0.05% Na Spr 16 Gm Btl (*Bkc) NASAL 1 spray Q12HR TAMIKA Administration Glucagon 1 mg 10/02/24 17:35 Glucagon For Inj 1 Mg Vial IM PRN PRN Hypoglycemia Protocol Glucose 15 gm 10/02/24 17:35 10/13/24 17:38 Glucose Oral Gel 15 Gm Of Glucse In 37.5 Gm Tube PO 15 gm PRN PRN Administration Hypoglycemia Protocol Heparin Sodium (Porcine) 5,000 units 10/14/24 21:00 10/25/24 13:41 Heparin Sodium 5,000 Units/Ml Vial SUB-Q Not Given Q12HR TAMIKA Dextrose 1,000 mls @ 100 mls/hr 10/02/24 17:35 Dextrose 5% 1,000 Ml IVPB PRN PRN Hypoglycemia Protocol Albumin Human 50 mls @ 999 mls/hr 10/17/24 16:39 Albutein IVPB 11/16/24 16:38 Q10M PRN HYPOTENSION Insulin Aspart 3 - 6 units 10/03/24 08:00 10/25/24 08:42 Insulin Aspart (*Bkc) 100 Units/Ml SUB-Q Not Given TIDWM [facility] Protocol Insulin Aspart 1 - 3 units 10/02/24 21:00 10/24/24 21:57 Insulin Aspart (*Bkc) 100 Units/Ml SUB-Q Not Given HS [facility] Protocol Insulin Human Regular 25 units 10/16/24 09:35 10/25/24 09:45 Insulin Human Regular (*Bkc) 100 Units/Ml SUB-Q Not Given DAILY@0800 [facility] Isosorbide Mononitrate 90 mg 10/03/24 09:00 10/25/24 08:44 Isosorbide Mononitrate 30 Mg Tab.Er.24h PO 90 mg DAILY TAMIKA Administration Lisinopril 20 mg 10/23/24 17:00 10/25/24 08:45 Lisinopril 20 Mg Tablet PO 20 mg BID TAMIKA Administration Loperamide HCl 2 mg 10/13/24 13:26 Loperamide Hcl 2 Mg Capsule PO PRN PRN Diarrhea Morphine Sulfate 2 mg 10/17/24 16:31 Morphine Sulfate (*Crx) 2 Mg/Ml Inj IV PUSH Q2H PRN Breakthrough Pain Rated 7-10 Ondansetron HCl 4 mg 10/18/24 18:21 Ondansetron Inj 4 Mg/2 Ml Vial IV PUSH Q6H PRN Nausea And Vomiting Oxycodone/Acetaminophen 1 tablet 10/17/24 16:31 10/18/24 01:50 Oxycodone/Acetaminophen (*Crx) 5-325 Mg Tablet PO 1 tablet Q4H PRN Administration Pain Rated 4-6 Pantoprazole Sodium 40 mg 10/03/24 21:00 10/24/24 21:58 Pantoprazole 40 Mg Tablet PO 40 mg QHS TAMIKA Administration Polyethylene Glycol 17 gm 10/05/24 14:48 Polyethylene Glycol 3350 17 Gm Powd.Pack PO QAM PRN Constipation Propranolol HCl 80 mg 10/03/24 09:00 10/25/24 13:54 Propranolol Hcl 40 Mg Tablet PO 80 mg TID TAMIKA Administration Sertraline HCl 50 mg 10/02/24 23:10 10/25/24 08:44 Sertraline Hcl 50 Mg Tablet BY MOUTH 50 mg DAILY TAMIKA Administration Sodium Chloride 1 spray 10/11/24 16:22 10/12/24 00:02 Saline 0.65% Fabiano Soln 44 Ml Btl NASAL 1 spray Q6HR PRN Administration Congestion Radiology Results: ITS Impressions Foot X-Ray 10/02/24 14:32 IMPRESSION: 1. Nondisplaced fracture of lateral aspect of head of first proximal phalanx. 2. Nondisplaced stellate fracture of tuft of first distal phalanx. 3. Mild polyarticular osteoarthritis. Renal Ultrasound 10/07/24 11:52 IMPRESSION: 1. 3.4 cm mixed solid and cystic lesion at the upper pole the right kidney with 2 cm solid nodular component which is concerning for renal cell carcinoma. Recommend urologic consultation and further evaluation with pre and postcontrast MRI or CT. 2. No hydronephrosis in either kidney. 3. Trabeculated bladder wall which can be seen with neurogenic bladder or chronic outlet obstruction such as in the setting of prostatomegaly. Renal Scan Nuclear Medicine 10/13/24 14:38 IMPRESSION: 1. Symmetric kidney function. 2. Delayed uptake and clearance of activity from the kidneys, consistent with decreased kidney function. Chest X-Ray 10/17/24 16:14 IMPRESSION: Left internal jugular central venous tunneled hemodialysis catheter in position and ready for immediate use Renal Biopsy Ultrasound 10/21/24 13:16 IMPRESSION: 1. Ultrasound-guided random left kidney core needle biopsy. Abdomen MRI 10/23/24 09:22 IMPRESSION: 1. Benign cysts in the kidneys. 2. Small pleural effusions. Labs Labs: Laboratory Tests 10/24/24 06:03 10/24/24 06:03
[2024-10-25] MEDS: EPOETIN ALFA-EPBX 10,000 UNITS/ML VIAL 10000 UNITS IV PUSH (13:49)
--- NOTE | 2024-10-25 15:26 | P.DS_ITS ---
DS: Admitting Diagnosis Discharge Date 10/25/2024 Admitting Diagnosis diabetic foot ulcer fracture of right great toe CKD Hypertension Renal mass type 2 dm diastolic dysfunction covid transaminitis hypocalcemia DS: Discharge Diagnosis Discharge Diagnosis (1) Diabetic foot ulcer: Code(s): E11.621 - Type 2 diabetes mellitus with foot ulcer; L97.509 - Non-pressure chronic ulcer of other part of unspecified foot with unspecified severity Status: Acute (2) Fracture of right great toe: Code(s): S92.401A - Displaced unspecified fracture of right great toe, initial encounter for closed fracture Status: Acute (3) Chronic kidney disease, stage 3b: Code(s): N18.32 - Chronic kidney disease, stage 3b Status: Acute (4) Hypertension: Code(s): I10 - Essential (primary) hypertension Status: Chronic (5) Renal mass, right: Code(s): N28.89 - Other specified disorders of kidney and ureter Status: Acute (6) Type 2 diabetes mellitus with diabetic polyneuropathy: Code(s): E11.42 - Type 2 diabetes mellitus with diabetic polyneuropathy Status: Acute (7) Diastolic dysfunction: Onset Date: 03/2022 Code(s): I51.89 - Other ill-defined heart diseases Status: Chronic (8) Presence of aortocoronary bypass graft: Onset Date: 10/2017 Code(s): Z95.1 - Presence of aortocoronary bypass graft Status: Acute (9) COVID: Code(s): U07.1 - COVID-19 Status: Acute (10) Transaminitis: Code(s): R74.01 - Elevation of levels of liver transaminase levels Status: Acute (11) Hypocalcemia: Code(s): E83.51 - Hypocalcemia Status: Acute DS: Summary Hospital Course Reason for hospitalization: diabetic foot ulcer fracture of right great toe CKD Hypertension Renal mass type 2 dm diastolic dysfunction covid transaminitis hypocalcemia Hospital Course: 69-year-old male past medical history of CKD stage 3 diastolic dysfunction, diabetes type 2 and CAD presents the hospital with acute toe pain and disc oloration. On admission CRP elevated but no leukocytosis. Patient not meeting sirs criteria. Foot XR showed a nondisplaced fracture of lateral aspect of head of first proximal phalanx and a nondisplaced stellate fracture of tuft of first distal phalanx. Patient started on antibiotics and surgery consulted. Patient underwent a sharp excisional debridement right great toe diabetic foot ulcer measuring 5 cm x 3 cm including skin, subcutaneous fat, and tendon on 10/03 and a right great toe ray amputation on 10/[address] Aceves. Patient completed antibiotics during admission. Prior to discharge Dr. Aceves saw patient and removed his stitches. Patient worked with therapy throughout admission and was ambulating well. He was discharged home with home health. He denied any pain upon discharge. During admission patient diagnosed with covid. Supportive treatment given and he remained asymptomatic. During admission patient was noted to be in acute on chronic renal failure. Nephrology consulted. Renal US showed a 3.4 cm mixed solid and cystic lesion at the upper pole the right kidney with 2 cm solid nodular component which is concerning for renal cell carcinoma. A NM renal scan shows normal symmetric kidney function and delayed uptake and clearance of activity from within the kidneys, consistent with decreased kidney function. Abdomen MRI showed Benign cysts in the kidneys. Renal Bx obtained, results per nephrology: significant changes consistent with diabetic glomerulosclerosis, 80% tubular atrophy/interstitial fibrosis, findings also suggest post-infectious glomerulonephritis. Patient underwent placement left internal jugular tunneled dura flow central venous catheter using ultrasound and under fluoroscopy on 10/[address] Lema for HD. HD started on 10/20. Patient tolerated HD well. Throughout admission patient had poorly controlled hypertension for which he remained asymptomatic. He was started on lisinopril 20 mg and remained on imdur 90 mg daily and propranolol 80 mg TID. On days when patient does not receive dialysis blood pressures were better controlled. Discussed with Dr. Jacobsen prior to discharge about adjusting his medications given hypertension with dialysis, however he noted that this occasionally happens with dialysis patients due to dialysis removing the medication from their system. He notes that this is something that can be taken care of in the outpatient setting since his blood pressures were well controlled the day prior. Prior to dialysis patient was on humulin U-500 with a regimen of 130 units breakfast, 50 units lunch, and 20 units dinner. Since starting dialysis glucose levels have been better controlled ranging 90-150s on 25 units regular insulin. Patient did not always receive the regular insulin during admission. Discussed patient with Dr. Monterroso prior to discharge and will instead send him on a sliding scale using his humulin U-500 pen. Discussed with patient that he is to closely monitor his glucose levels and to follow the sliding scale as prescribed. He states understanding. At time of discharge patient has no complaints denying chest pain, shortness of breath, palpitations, nausea/vomiting, abdominal pain, dizziness/lightheadedness, and headaches. Patient discharged home with home health in a stable condition. He is to follow up with his PCP in 1 week and surgery and nephrology as scheduled. Outpatient dialysis set up per care coordination. Status at Discharge Functional status at discharge: uses cane/walker Time Spent with Patient Time attestation: Total time spent providing and/or coordinating discharge services: Time spent: Greater than 30 minutes Exam Narrative: AF HR 62 RR 16 Spo2 96 BP 152/64 General: male in no acute respiratory distress who is nontoxic appearing, lying semi recumbent in bed. HEENT: Normocephalic. Atraumatic. Extraocular movement intact. Sclera clear and anicteric. No facial asymmetry. Chest: Lungs are clear to auscultation bilaterally. No wheezes or crackles. CV: Heart was regular rate and rhythm. S1/S2. No murmurs, gallops, or rubs. Abd: Abdomen was soft. Nontender. Nondistended. Positive bowel sounds. Ext: Dressing is clean/dry/intact. Neuro: Patient is alert and oriented x4. Speech is clear. DS: Data Data Completed and Pending Completed studies during hospitalization: abdomen mri renal bx us chest xr chest xr renal scan nuclear med chest xr chest xr renal us foot xr Pending studies at discharge: Pending at discharge 10/06/24 12:33 Surgical [PTH] Routine 10/21/24 12:34 Surgical [PTH] Routine Labs on day of discharge: Labs from last 24 hours 10/25/24 10/25/24 10/24/24 07:57 06:00 20:28 POC Capillary Glucose 146 H 153 H Phosphorus 4.3 Magnesium 2.2 10/24/24 17:01 POC Capillary Glucose 105 Phosphorus Magnesium Discharge Plan Discharge Attending physician on discharge: Swapna Alford Consulting providers: Jan Jacobsen; Denzel Teresa Discharging Clinician: Swapna Alford Anticipated Discharge Date/Time: 10/09/24 10:30 Patient Disposition: Home Health Service Activity: may shower and other - see discharge instructions Diet: heart healthy, diabetic and renal Wound Care Instructions: keep dressing dry Discharge Instructions: Per surgery: * Wound care: Apply Silver gel, 4x4 gauze, and tape daily. OK to shower. * Follow-up with Dr. Aceves in 4 weeks for wound check. Call sooner with questions regarding surgery. * Ambulate ad tres * Wear your postop shoe when walking * Keep your right leg elevated when at rest in the chair or bed Discharge disposition: Patient admitted to the hospital for diabetic foot ulcer Underwent surgery with Dr. Aceves See plan above per surgery During admission patient was noted to have end stage renal disease Evaluated by nephrology and started on dialysis, see plan for dialysis outpatient below per care coordination Attached is Dr. Caballero (nephrologys) information Continue to monitor your blood glucose levels Insulin dosing has been changed Use sliding scale with each meal using your humulin u 500 pen Glucose levels 70-200 : No insulin required 201-250: 4 units 251-300: 5 units 301-350: 6 units 351-400: 8 units Continue farxiga as prescribed Hold yahir until follow up with refinery operator reforming unit Monitor blood pressures Started on lisinopril 20 mg daily, attached is information on this medication Remains on Imdur 90 mg daily and propranolol 80 mg TID Take caution while standing, rising, or moving Change positions slowly taking a break between each position change If you standing feel dizzy sit back down and take a break Encouraged to continue with yearly vaccinations Return to the emergency department if he developed sudden shortness of breath, chest pain, nausea, vomiting, upset stomach or intractable diarrhea Return to the emergency department if you develop fever greater than 101.5 Follow-up with the primary care physician within 1-2 weeks Thank you for choosing [facility] for your healthcare needs Per Care Coordination: [employer] [phone] arranged and will call you regarding first visit. RN please fax discharge orders [facility] ? O?[facility] [address] [place] [address] [phone] Sunday, , Sunday 2nd Shift Start on Sunday10/28/24 (arrival time 9:30am) Then moving forward official time will be 10:00am Niece/family to transport Patient Instructions: Lisinopril (By mouth), Dialysis Nutrition Plan (DC), Insulin Pens (DC), End Stage Kidney Disease (DC), Hemodialysis (DC) Patient Language: Greek Stand Alone Forms: General Discharge Information Follow-up/Referrals: Jan Jacobsen MD [Physician] - Call for Appointment Tom Aceves DO [Physician] - 4 Weeks Adrian Owens MD [Primary Care Provider] - (in next week) Discharge Medications: New lisinopril 20 mg Tablet 20 mg PO BID Qty: 60 0RF Continued ranolazine 1,000 mg tablet extended release 12 hr 1,000 mg PO Q12H Zyrtec 10 mg capsule 10 mg PO DAILY PRN (Reason: allergy symptoms) aspirin 81 mg tablet 81 mg PO DAILY fluticasone propionate [Flonase Allergy Relief] 50 mcg/actuation spray,suspension 1 spray intranasal DAILY Rx Instructions: administer into each nostril Gvoke HypoPen 2-Pack 1 mg/0.2 mL auto-injector 1 mg subcut ONCE Qty: 0.4 4RF Rx Instructions: may repeat once after 15 minutes if no response calcitriol 0.25 mcg capsule 0.25 mcg PO 3XW Rx Instructions: takes hkq-soss-hlyqbno ezetimibe 10 mg tablet 10 mg PO DAILY atorvastatin 80 mg tablet 80 mg PO DAILY 90 Days Qty: 90 3RF (DME) pen needle, diabetic [BD Ultra-Fine Short Pen Needle] 31 gauge x 5/16 needle See Rx Instructions .Route Qty: 100 1RF Rx Instructions: use with insulin once daily (DME) Dexcom G7 Neuroscientist Misc See Rx Instructions .Route Qty: 1 0RF Rx Instructions: As directed to check blood sugars 4 times daily pantoprazole 40 mg tablet,delayed release (DR/EC) 40 mg PO QHS Qty: 90 2RF bumetanide 0.5 mg tablet 0.5 mg PO DAILY Qty: 30 5RF isosorbide mononitrate 60 mg tablet extended release 24 hr 90 mg PO DAILY Qty: 135 2RF buspirone 10 mg tablet 10 mg PO BID Qty: 180 2RF (DME) Dexcom G7 Sensor Device See Rx Instructions .Route Qty: 9 2RF Rx Instructions: As directed sertraline 50 mg tablet See Rx Instructions .ROUTE .COMPLEX Qty: 90 2RF Dose Instruction: TAKE 1 TABLET BY MOUTH EVERY DAY Rx Instructions: TAKE 1 TABLET BY MOUTH EVERY DAY dapagliflozin propanediol [Farxiga] 10 mg tablet 10 mg PO QAM 90 Days Qty: 90 3RF propranolol 80 mg tablet 80 mg PO TID Qty: 270 2RF ondansetron HCl 8 mg tablet 8 mg PO Q8H PRN (Reason: nausea and vomiting) Qty: 20 0RF Changed Humulin R U-500 (Conc) Kwikpen 500 unit/mL (3 mL) insulin pen See Rx Instructions subcut QAM Qty: 6 0RF Rx Instructions: Use sliding scale with each meal Glucose levels 70-200 : No insulin required 201-250: 4 units 251-300: 5 units 301-350: 6 units 351-400: 8 units Held Ozempic 0.25 mg or 0.5 mg (2 mg/3 mL) pen injector 0.25 mg subcut WEEKLY Hold Instructions: Resume on 12/18/24. Hold until follow up with endocrinologists Rx Instructions: takes on for 1 more week...then 2-19 increase to 0.5 Date of admission: 10/03/24 09:14 Primary Care Provider: Adrian Owens Admitting Provider: Jeremiah Ramirez Attending physician on admission: Deann Headley Condition: Stable Hospitalist MIPS Heart Failure (Exclusion) Patient has history of Heart Transplant or Left Ventricular Assistive Device?: No IF YES, STOP HERE Heart Failure (Qualifier) Patient has current or prior documentation of LVEF less than or equal to 40%, or mod/servere depressed LVSF?: No IF NO, STOP HERE
--- NOTE | 2024-10-25 16:12 | P.PNGS_ITS ---
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 Instructed patient to apply Silver gel to open area daily. OK to ambulate ad tres. Wear postop shoe while walking. Will have patient follow up in office in 4 weeks for wound check. Subjective Subjective Date/Time Seen: 10/25/24 16:12 Interval history: Patient ready to go home today. Right foot wound healing well without any complaints. Exam Extrem: Other: Sutures removed. Good granulation tissue and skin healing well. Objective Data Vital Signs Vital Signs: Vital Signs - 24 hr 10/24/24 16:41 10/24/24 16:42 10/24/24 21:34 Temperature 97.5 F L Pulse Rate 60 60 64 Respiratory Rate 18 Blood Pressure 148/80 H 154/68 H Pulse Oximetry 96 Oxygen Delivery 10/25/24 06:00 10/25/24 08:45 10/25/24 08:45 Temperature 97.7 F Pulse Rate 59 L 64 Respiratory Rate 18 Blood Pressure 155/78 H Pulse Oximetry 97 Oxygen Delivery Room Air 10/25/24 10:32 10/25/24 10:51 10/25/24 11:00 Temperature 97.7 F Pulse Rate 60 55 L 53 L Respiratory Rate 18 Blood Pressure 163/83 H 167/85 H 168/82 H Pulse Oximetry 98 Oxygen Delivery 10/25/24 11:15 10/25/24 11:30 10/25/24 11:45 Temperature Pulse Rate 53 L 56 L 59 L Respiratory Rate Blood Pressure 175/81 H 173/85 H 175/90 H Pulse Oximetry Oxygen Delivery 10/25/24 12:00 10/25/24 12:15 10/25/24 12:30 Temperature Pulse Rate 57 L 58 L 58 L Respiratory Rate Blood Pressure 147/89 H 184/91 H 174/91 H Pulse Oximetry Oxygen Delivery 10/25/24 12:45 10/25/24 13:00 10/25/24 13:15 Temperature Pulse Rate 58 L 58 L 57 L Respiratory Rate Blood Pressure 180/90 H 180/90 H 168/95 H Pulse Oximetry Oxygen Delivery 10/25/24 13:30 10/25/24 13:45 03/08/25 14:00 Temperature Pulse Rate 60 61 61 Respiratory Rate Blood Pressure 181/96 H 183/99 H 184/98 H Pulse Oximetry Oxygen Delivery 10/25/24 14:15 10/25/24 14:24 10/25/24 14:55 Temperature Pulse Rate 62 62 Respiratory Rate Blood Pressure 179/96 H 177/100 H 172/86 H Pulse Oximetry Oxygen Delivery 10/25/24 15:00 10/25/24 15:13 10/25/24 15:22 Temperature 98.1 F 97.5 F L Pulse Rate 68 64 Respiratory Rate 16 Blood Pressure 152/64 H 180/92 H Pulse Oximetry 98 96 Oxygen Delivery Intake/Output Intake/Output: Intake & Output 10/22/24 10/23/24 10/24/24 10/25/24 23:59 23:59 23:59 23:59 Intake Total 8260 135 6366 180 Output Total 1999 1500 Balance 1920 -1200 1450 -1320 Meds/Results Medications: Active Medications Generic Name Dose Route Start Last Admin Trade Name Freq PRN Reason Stop Dose Admin Acetaminophen 650 mg 10/02/24 16:55 10/20/24 16:47 Acetaminophen 325 Mg Tablet PO 650 mg Q4H PRN Administration Mild Pain (1-3) or Fever Albuterol 2.5 mg 10/12/24 13:19 Albuterol Sulfate Neb 2.5 Mg/3 Ml Inh INHALATION Q4HRT PRN Shortness Of Breath Aspirin 81 mg 10/03/24 09:00 10/20/24 08:58 Aspirin 81 Mg Enteric Tablet PO 81 mg QAM TAMIKA Administration Atorvastatin Calcium 80 mg 10/03/24 09:00 10/25/24 08:44 Atorvastatin 40 Mg Tablet PO 80 mg DAILY TAMIKA Administration Bumetanide 0.5 mg 10/03/24 09:00 10/08/24 08:32 Bumetanide 0.5 Mg Tablet PO 0.5 mg DAILY TAMIKA Administration Buspirone HCl 10 mg 10/03/24 09:00 10/25/24 08:45 Buspirone Hcl 10 Mg Tablet PO 10 mg BID TAMIKA Administration Calcitriol 0.25 mcg 10/03/24 09:00 10/24/24 09:14 Calcitriol 0.25 Mcg Capsule PO 0.25 mcg [id number] TAMIKA Administration Dextrose 12.5 gm 10/02/24 17:35 10/17/24 15:55 Dextrose 50% 25 Gm/50 Ml Syringe IV PUSH 12.5 gm PRN PRN Administration Hypoglycemia Protocol Docusate Sodium 100 mg 10/03/24 09:00 10/25/24 08:44 Docusate Sodium 100 Mg Capsule PO 100 mg BID TAMIKA Administration Ezetimibe 10 mg 10/03/24 09:00 10/25/24 08:44 Ezetimibe 10 Mg Tablet PO 10 mg DAILY TAMIKA Administration Empagliflozin 25 mg 10/03/24 09:00 10/17/24 15:30 Empagliflozin 25 Mg Tablet BY MOUTH Not Given QAM TAMIKA Epoetin Marco-epbx 10,000 units 10/25/24 18:19 10/25/24 13:49 Epoetin Marco-Epbx 10,000 Units/Ml Vial IV PUSH 10/25/24 18:20 10,000 units ONCE ONE Administration Fluticasone Propionate 1 spray 10/11/24 21:00 10/25/24 08:45 Fluticasone Propionate 0.05% Na Spr 16 Gm Btl (*Bkc) NASAL 1 spray Q12HR TAMIKA Administration Glucagon 1 mg 10/02/24 17:35 Glucagon For Inj 1 Mg Vial IM PRN PRN Hypoglycemia Protocol Glucose 15 gm 10/02/24 17:35 10/13/24 17:38 Glucose Oral Gel 15 Gm Of Glucse In 37.5 Gm Tube PO 15 gm PRN PRN Administration Hypoglycemia Protocol Heparin Sodium (Porcine) 5,000 units 10/14/24 21:00 10/25/24 13:41 Heparin Sodium 5,000 Units/Ml Vial SUB-Q Not Given Q12HR TAMIKA Dextrose 1,000 mls @ 100 mls/hr 10/02/24 17:35 Dextrose 5% 1,000 Ml IVPB PRN PRN Hypoglycemia Protocol Albumin Human 50 mls @ 999 mls/hr 10/17/24 16:39 Albutein IVPB 11/16/24 16:38 Q10M PRN HYPOTENSION Insulin Aspart 3 - 6 units 10/03/24 08:00 10/25/24 08:42 Insulin Aspart (*Bkc) 100 Units/Ml SUB-Q Not Given TIDWM TAMIKA Protocol Insulin Aspart 1 - 3 units 10/02/24 21:00 10/24/24 21:57 Insulin Aspart (*Bkc) 100 Units/Ml SUB-Q Not Given HS [facility] Protocol Insulin Human Regular 25 units 10/16/24 09:35 10/25/24 09:45 Insulin Human Regular (*Bkc) 100 Units/Ml SUB-Q Not Given DAILY@0800 [facility] Isosorbide Mononitrate 90 mg 10/03/24 09:00 10/25/24 08:44 Isosorbide Mononitrate 30 Mg Tab.Er.24h PO 90 mg DAILY [facility] Administration Lisinopril 20 mg 10/23/24 17:00 10/25/24 08:45 Lisinopril 20 Mg Tablet PO 20 mg BID [facility] Administration Loperamide HCl 2 mg 10/13/24 13:26 Loperamide Hcl 2 Mg Capsule PO PRN PRN Diarrhea Morphine Sulfate 2 mg 10/17/24 16:31 Morphine Sulfate (*Crx) 2 Mg/Ml Inj IV PUSH Q2H PRN Breakthrough Pain Rated 7-10 Ondansetron HCl 4 mg 10/18/24 18:21 Ondansetron Inj 4 Mg/2 Ml Vial IV PUSH Q6H PRN Nausea And Vomiting Oxycodone/Acetaminophen 1 tablet 10/17/24 16:31 10/18/24 01:50 Oxycodone/Acetaminophen (*Crx) 5-325 Mg Tablet PO 1 tablet Q4H PRN Administration Pain Rated 4-6 Pantoprazole Sodium 40 mg 10/03/24 21:00 10/24/24 21:58 Pantoprazole 40 Mg Tablet PO 40 mg QHS [facility] Administration Polyethylene Glycol 17 gm 10/05/24 14:48 Polyethylene Glycol 3350 17 Gm Powd.Pack PO QAM PRN Constipation Propranolol HCl 80 mg 10/03/24 09:00 10/25/24 13:54 Propranolol Hcl 40 Mg Tablet PO 80 mg TID [facility] Administration Sertraline HCl 50 mg 10/02/24 23:10 10/25/24 08:44 Sertraline Hcl 50 Mg Tablet BY MOUTH 50 mg DAILY [facility] Administration Sodium Chloride 1 spray 10/11/24 16:22 10/12/24 00:02 Saline 0.65% Fabiano Soln 44 Ml Btl NASAL 1 spray Q6HR PRN Administration Congestion Radiology Results: ITS Impressions Foot X-Ray 10/02/24 14:32 IMPRESSION: 1. Nondisplaced fracture of lateral aspect of head of first proximal phalanx. 2. Nondisplaced stellate fracture of tuft of first distal phalanx. 3. Mild polyarticular osteoarthritis. Renal Ultrasound 10/07/24 11:52 IMPRESSION: 1. 3.4 cm mixed solid and cystic lesion at the upper pole the right kidney with 2 cm solid nodular component which is concerning for renal cell carcinoma. Recommend urologic consultation and further evaluation with pre and postcontrast MRI or CT. 2. No hydronephrosis in either kidney. 3. Trabeculated bladder wall which can be seen with neurogenic bladder or chroni c outlet obstruction such as in the setting of prostatomegaly. Renal Scan Nuclear Medicine 10/13/24 14:38 IMPRESSION: 1. Symmetric kidney function. 2. Delayed uptake and clearance of activity from the kidneys, consistent with decreased kidney function. Chest X-Ray 10/17/24 16:14 IMPRESSION: Left internal jugular central venous tunneled hemodialysis catheter in position and ready for immediate use Renal Biopsy Ultrasound 10/21/24 13:16 IMPRESSION: 1. Ultrasound-guided random left kidney core needle biopsy. Abdomen MRI 10/23/24 09:22 IMPRESSION: 1. Benign cysts in the kidneys. 2. Small pleural effusions. Labs Labs: Laboratory Results - last 24 hr 10/24/24 10/24/24 10/25/24 17:01 20:28 06:00 POC Capillary Glucose 105 153 H Phosphorus 4.3 Magnesium 2.2 10/25/24 07:57 POC Capillary Glucose 146 H Phosphorus Magnesium
[2024-10-25 16:20] LABS: Glucose Point of Care 134 mg/dl (65-105)
== END 2024-10-25 18:00 | disposition home health service (06) | DRG 616 ==
LOC: ANHED 14:40 → ANH3MEDSUR 18:27
PROVIDERS: Internal Medicine; Internal Medicine Nephrology; Nurse Practitioner Adult Health; Nurse Practitioner Family; Nurse Practitioner Gerontology; Surgery; Admitting Provider General Practice; Emergency Provider Emergency Medicine; PCP Family Medicine Adolescent Medicine; Visit Provider Student in an Organized Health Care Education/Training Program
PROC: 0JBQ0ZZ Excision of Right Foot Subcutaneous Tissue and Fascia, Open Approach (ICD-10-PCS; principal; 2024-10-03 16:00)
PROC: 0Y6M0Z9 Detachment at Right Foot, Partial 1st Ray, Open Approach (ICD-10-PCS; principal; 2024-10-06 12:30)
PROC: 0JH63XZ Insertion of Tunneled Vascular Access Device into Chest Subcutaneous Tissue and Fascia, Percutaneous Approach (ICD-10-PCS; CPT 36908; principal; 2024-10-17 14:15)
DX: E11.621 Type 2 diabetes mellitus with foot ulcer (principal); U07.1 COVID-19; F33.8 Other recurrent depressive disorders; I12.0 Hypertensive chronic kidney disease with stage 5 chronic kidney disease or end stage renal disease; B37.49 Other urogenital candidiasis; N18.6 End stage renal disease; N17.9 Acute kidney failure, unspecified; N05.9 Unspecified nephritic syndrome with unspecified morphologic changes; E11.628 Type 2 diabetes mellitus with other skin complications; L03.031 Cellulitis of right toe; L97.512 Non-pressure chronic ulcer of other part of right foot with fat layer exposed; S92.414A Nondisplaced fracture of proximal phalanx of right great toe, initial encounter for closed fracture; S92.421A Displaced fracture of distal phalanx of right great toe, initial encounter for closed fracture; I25.10 Atherosclerotic heart disease of native coronary artery without angina pectoris; E11.65 Type 2 diabetes mellitus with hyperglycemia; E11.42 Type 2 diabetes mellitus with diabetic polyneuropathy; E11.649 Type 2 diabetes mellitus with hypoglycemia without coma; E11.21 Type 2 diabetes mellitus with diabetic nephropathy; E11.22 Type 2 diabetes mellitus with diabetic chronic kidney disease; E87.5 Hyperkalemia; E83.51 Hypocalcemia; E78.00 Pure hypercholesterolemia, unspecified; K21.9 Gastro-esophageal reflux disease without esophagitis; B95.61 Methicillin susceptible Staphylococcus aureus infection as the cause of diseases classified elsewhere; Z89.412 Acquired absence of left great toe; Z79.4 Long term (current) use of insulin; Z79.82 Long term (current) use of aspirin; Z95.1 Presence of aortocoronary bypass graft
CPT/HCPCS: 36415; 50200; 71045; 73620; 74183; 76775; 76942; 77001; 78707; 80048; 80053; 80202; 81001; 81050; 82550; 82570; 82948; 83605; 83735; 84100; 84156; 84300; 84540; 85025; 85027; 85610; 85652; 85730; 85999; 86140; 86704; 86706; 86850; 86900; 86901; 87040; 87070; 87075; 87086; 87181; 87205; 87340; 87637; 88300; 88305; 88311; 88329; 93005; 96365; 96366; 96367; 96368; 96375; 97161; 97165; 97530; 97535; 99285; A9270; A9562; A9579; C1750; G0257; G0378; J0612; J0613; J0690; J0692; J1644; J1650; J1815; J1836; J2003; J2004; J2250; J2405; J2704; J3010; J3370; J7030; J7120; Q5105